=== PATIENT | male | born 1945 | race Caucasian/White ===

== ENCOUNTER 2022-08-21 09:58 | Inpatient (IN) | payer MEDICARE ==
[~2022-08-21] VITALS: Ht 182.9 cm; Wt 105.4 kg
[2022-08-21 11:05] VITALS: BP 119/65
--- NOTE | 2022-08-21 11:05 | PM&R Post Admission Assessment ---
PM&R HP Date of Visit: Aug 21, 2022 Time of Visit: 11:30 History of Present Illness CC: Debility following viral pneumonia HPI: Gulshan Mackenzie is a 77-year-old male with history of a-fib s/p pacemaker placement, pulmonary fibrosis, COPD with recent exacerbation, CVA, hypertension, and hyperlipidemia who was admitted to acute rehab at [facility] on 08/21 following hospitalization 07/31- 08/21/[address] [facility] for weakness and debilitation following COPD exacerbation secondary to viral pneumonia. While at [facility] he was treated with IV ceftriaxone and cefepime which also covered for a UTI which grew pseudomonas. He endorses a non- productive cough, and shortness of breath as well as his position sensory deficits on his left side. Denies chest pain, abdominal pain, vision/hearing changes. Bowels are moving, and upon standing he has leakage of urine. Plan to go back home with son and Daughter in law upon discharge. Review of Systems: (see HPI) PMH: - Atrial fibrillation (Follows with Dr. Yan Childers. 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 - COPD (Follows with Dr. Kaur [facility] in [place]) - Pulmonary Fibrosis good. diagnosed last year. Supposedly from Smoking - Hypertension - T2DM - Sleep apnea - urinary incontinence Surgical Hx: - Pacemaker placement for a-fib - Cataract surgery Allergies: NKDA Home Medications: Metoprolol Tartrate 5 Mg/5 Ml Vial 5 Mg IV Q12H PRN Diltiazem HCl 30 Mg Tablet 30 Mg PO Q6H PRN Iprat-Albut 0.5-3(2.5) mg/3 ml (Ipratropium/Albuterol Sulfate) 0.5 Mg-3 Mg (2.5 Mg Base)/3 Ml Ampul.neb 3 Ml IH QID PRN Tylenol (Acetaminophen) 325 Mg Capsule 650 Mg PO Q6H PRN Incruse Ellipta (Umeclidinium Escalon) 62.5 Mcg/Actuation Blst.w.dev 1 Puff IH DAILY Sildenafil (Sildenafil Citrate) 20 Mg Tablet 20 Mg PO DAILY Prednisone 10 Mg Tab 10 Mg PO DAILY Potassium Chloride 10 Meq Tab.er.prt 10 Meq PO DAILY Pantoprazole Sodium 40 Mg Tablet.dr 40 Mg PO DAILY Multivitamins with Minerals (Multivitamin with Minerals) 1 Each Tablet 1 Each PO DAILY Magnesium Oxide 400 Mg Magnesium Tablet 400 Mg PO DAILY Furosemide 20 Mg Tablet 20 Mg PO DAILY Ezetimibe 10 Mg Tablet 10 Mg PO HS Enoxaparin Sodium 40 Mg/0.4 Ml Syringe 40 Mg SQ DAILY Docusate Sodium 100 Mg Capsule 100 Mg PO BID Clopidogrel (Clopidogrel Bisulfate) 75 Mg Tablet 75 Mg PO DAILY Aspirin 81 Mg Tab.chew 81 Mg PO DAILY Social Hx: Marital Status: Tobacco Use: Not current. Smoking Status: >30 years ago Use of E-Cig and/or Vaping: No Substance Use: No MJ Alcohol Use: Not corrent. No beer since stroke. Family Hx: No family history of stroke or heart disease. Bright's disease (Glomerulonephritis in father) Objective: Vital Signs 08/21/22 08/21/22 11:05 12:24 Temp 36.4 Pulse 72 Resp 22 B/P (MAP) 119/65 (83) Pulse Ox 97 O2 Delivery Nasal Cannula O2 Flow Rate 5.00 Physical Exam: General Appearance: No Apparent Distress HEENT: PERRL/EOMI, Moist Mucous Membranes Neck: Full Range of Motion, Non Tender, Supple Respiratory: Chest Non Tender, Reduced breath sounds on right, No Accessory Muscle Use, No Respiratory Distress. Pauses mid-sentence to catch breath. Cardiovascular: Regular Rate, Rhythm, No Murmur, Normal Peripheral Pulses Gastrointestinal: Normal Bowel Sounds, No Pulsatile Mass, Non Tender, Soft, Obese Extremity: Normal Capillary Refill, Normal Range of Motion, Non Tender, No Calf Tenderness, No Pedal Edema Neurologic/Psychiatric: Alert, Oriented x3, Normal Mood/Affect, Mild motor weakness in left arm and leg. Loss of position sense in leg Skin: Normal Color, Warm/Dry Assessment/Plan: Debility due to illness - Inpatient rehab - PT/OT eval and treat Atrial fibrillation (Follows with Dr. Carpenter) - AV block s/p pacemaker placement; rate and rhythm controlled. 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) - Still has position deficits in leg, motor and strength almost back to normal - On clopidegril and baby aspirin - Continue statin - on Lovenox - COPD (Follows with [facility]) - Recent exacerbation - on 2L baseline, currently requiring more - continue incruse ellipta (LAMA) - DuoNebs PRN Pulmonary Fibrosis (diagnosed 3 months ago) - on sildenafil 20 - As above for COPD treatment PRN Urinary incontinence - Hodgson - Not currently taking reductase inhibitors/alpha blockers - Bladder scan for post void residual Hypertension - Hold home medication if normotensive T2DM - Monitor blood sugar - ISS as needed, adjust with exercise Hx of sleep apnea - Does not tolerate CPAP, uses 2L O2 NC at night - Baseline 2L JARAD ROSA I Aug 21, 2022 12:38 <Created by JARAD ROSA > Past Kcuxxkc-Spdzxz-Emvide Hx Past Med/Social Hx: Reviewed Nursing Past Med/Soc Hx, Reviewed and Corrections made Patient Social History Marrital Status: single Employed/Student: retired Alcohol Use: Denies Use Smoking Status: Former Smoker Past Medical History Surgeries: Eye Surgery, Pacemaker Respiratory: COPD, Pneumonia, Sleep Apnea Currently Using CPAP: No Currently Using BIPAP: No Cardiac: Atrial Fibrillation, Chronic Edema/Swelling, High Cholesterol, Hypertension Neurological: Neuropathy, Stroke Genitourinary: Benign Prostatic Hyperpl, Neurogenic Bladder Gastrointestinal: Gastroesophageal Reflux Musculoskeletal: Arthritis, Chronic Back Pain PM&R Allergy/Meds/Data Review Allergies Coded Allergies: No Known Allergies (Verified Allergy, Unknown, 08/21/22) Home Medications Scheduled Aspirin (Aspirin), 81 MG PO DAILY, (Reported) Clopidogrel Bisulfate (Clopidogrel), 75 MG PO DAILY, (Reported) Docusate Sodium (Docusate Sodium), 100 MG PO BID, (Reported) Enoxaparin Sodium (Enoxaparin Sodium), 40 MG SQ DAILY, (Reported) Ezetimibe (Ezetimibe), 10 MG PO HS, (Reported) Furosemide (Furosemide), 20 MG PO DAILY, (Reported) Magnesium Oxide (Magnesium Oxide), 400 MG PO DAILY, (Reported) Metoprolol Tartrate (Metoprolol Tartrate), 50 MG PO TID, (Reported) Multivitamin with Minerals (Multivitamins with Minerals), 1 EACH PO DAILY, (Reported) Pantoprazole Sodium (Pantoprazole Sodium), 40 MG PO DAILY, (Reported) Potassium Chloride (Potassium Chloride), 10 MEQ PO DAILY, (Reported) Prednisone (Prednisone), 10 MG PO DAILY, (Reported) Sildenafil Citrate (Sildenafil), 20 MG PO DAILY, (Reported) Umeclidinium Escalon (Incruse Ellipta), 1 PUFF IH DAILY, (Reported) Scheduled PRN Acetaminophen (Tylenol), 650 MG PO Q6H PRN for PAIN-MILD (1-4) OR TEMPATURE, (Reported) Diltiazem HCl (Diltiazem HCl), 30 MG PO Q6H PRN for ELEVATED HEARTRATE, (Reported) Ipratropium/Albuterol Sulfate (Iprat-Albut 0.5-3(2.5) mg/3 ml), 3 ML IH QID PRN for SHORTNESS OF BREATH, (Reported) Metoprolol Tartrate (Metoprolol Tartrate), 5 MG IV Q12H PRN for HR GREATER THAN 110, (Reported) Current Medications Current Medications Reviewed Review of Systems Constitutional: see HPI, malaise, weakness EENTM: no symptoms reported Respiratory: dyspnea on exertion, short of breath Cardiovascular: no symptoms reported Gastrointestinal: no symptoms reported Genitourinary: incontinence Musculoskeletal: back pain, joint pain Skin: no symptoms reported Psychiatric/Neurological: Anxiety, Depressed All Other Systems Reviewed Negative Unless Noted: Yes Physical Exam Physical Exam Vital Signs Capillary Refill : Height, Weight, BMI Height: '" Weight: lbs. oz. kg; BMI Method: General Appearance: No Apparent Distress, WD/WN, Chronically ill, Obese Eyes: Bilateral Eye Normal Inspection, Bilateral Eye PERRL HEENT: PERRL/EOMI, Normal ENT Inspection, Pharynx Normal Neck: Full Range of Motion, Normal Inspection, Non Tender, Supple, Carotid Bruit Respiratory: Chest Non Tender, Lungs Clear, Normal Breath Sounds, No Accessory Muscle Use, No Respiratory Distress Cardiovascular: Regular Rate, Rhythm, No Edema, No Gallop, No JVD, Normal Peripheral Pulses, Systolic Murmur Gastrointestinal: Normal Bowel Sounds, No Organomegaly, No Pulsatile Mass, Non Tender, Soft Back: Normal Inspection, No CVA Tenderness, No Vertebral Tenderness Extremity: Normal Capillary Refill, Normal Inspection, Normal Range of Motion, Non Tender, No Calf Tenderness, No Pedal Edema Neurologic/Psychiatric: Alert, Oriented x3, numerologist II-XII Norm as Tested, Abnormal Gait, Depressed Affect, Motor Weakness (generalized weakness) Skin: Normal Color, Warm/Dry Lymphatic: No Adenopathy PM&R Medical Assessment & Plan REHAB/MEDICAL ASSESSMENT AND PLAN: REHAB IMPAIRMENT GROUP: Myopathy ETIOLOGIC DIAGNOSIS: Myopathy The comorbidities that impact the patients function and/or functional outcome by: CHF, Hypoxia requiring 24/7 O2 supplement, incontinence REHAB PLAN: The patient is being admitted to our comprehensive inpatient rehabilitation facility and can tolerate the intensity of service consisting of at least: 180 minutes of therapy a day, 5 out of 7 days a week Rehab treatment will consist of: PT OT will focus on regaining function in order to return back to independent living in order for familty to be able to help care for the patient The patient/family has a good understanding of our discharge process and will benefit from an interdisciplinary inpatient rehabilitation program. The patient has potential to make improvement and is in need of at least two of the following multidisciplinary therapies including but not limited to physical, occupational, speech, and prosthetics and orthotics. Additionally the patient will need services from respiratory, nutritional services, wound care, psychology, etc. (Customize this to each patient). Given the patients complex condition and risk of further medical complications, rehabilitation services cannot be safely or effectively provided at a lower level of care such as a snf facility. BARRIERS TO DISCHARGE: Severe debility ESTIMATED LOS: 10 days DISPOSITION: Home RELEVANT CHANGES SINCE PREADMISSION SCREENING: I have compared the patients medical and functional status at the time of the preadmission screening and there are: no changes PROGNOSIS: Good REHABILITATION GOALS: 1. PT OT will focus on regaining function in order to return back to independent living in order for familty to be able to help care for the patient All the above goals were reviewed with the patient and he/she is in agreement. By signing this document, I acknowledge that I have personally performed a full physical examination on this patient within 24 hours of admission to this inpatient rehabilitation facility and have determined the patient to be able to tolerate the above course of treatment at an intensive level for a reasonable period of time. I will be completing a detailed individualized Plan of Care for this patient by day #4 of the patients stay based upon the Preadmission Screen, the Post-Admission Evaluation, and the therapy evaluations. Admission Dx/Comorbidities: (1) COPD exacerbation ICD Codes: J44.1 - Chronic obstructive pulmonary disease with (acute) exacerbation Assessment/Plan Assessment and Plan Assess & Plan/Chief Complaint Assessment/Plan: Debility due to illness - Inpatient rehab - PT/OT eval and treat Atrial fibrillation (Follows with Dr. Carpenter) - AV block s/p pacemaker placement; rate and rhythm controlled. 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) - Still has position deficits in leg, motor and strength almost back to normal - On clopidegril and baby aspirin - Continue statin - on Lovenox - COPD (Follows with [facility]) - Recent exacerbation - on 2L baseline, currently requiring more - continue incruse ellipta (LAMA) - DuoNebs PRN Pulmonary Fibrosis (diagnosed 3 months ago) - on sildenafil 20 - As above for COPD treatment PRN Urinary incontinence - Hodgson previous - Not currently taking reductase inhibitors/alpha blockers - Bladder scan for post void residual Hypertension - Hold home medication if normotensive T2DM - Monitor blood sugar - ISS as needed, adjust with exercise Hx of sleep apnea - Does not tolerate CPAP, uses 2L O2 NC at night - Baseline 2L Plan: Consult Cardiology Home meds O2 Monitor closely DAYANA GABIREL DO Aug 21, 2022 11:05
--- NOTE | 2022-08-21 11:11 | Occupational Therapy Eval ---
OT Evaluation-General/PLF Medical Diagnosis Admission Date Medical Diagnosis: debility, s/p PNA Onset Date: Jul 21, 2022 Therapy Diagnosis Therapy Diagnosis: decreased ADL status Referral Physician: Yocasta Referral Reason: Evaluation/Treatment Medical History Additional Medical History COPD, Afib, HTN, HLD, CARLA, DM, CVA (2017, L side affected), pacemaker Current History 07/21/22 hospital with progressively worsening SOB, diagnosed with Flu A. Pt transferred to [place] 07/31 for O2 weaning. 08/21/22, transfer to [facility]. Social History Home: Multilevel Current Living Status: Children (Son and D.I.L) Entry Into Home: Stairs Without Railing Steps Into Home: 2 able to stay on main level, has not been on 2nd floor in a couple years. ADL-Prior Level of Function SCALE: Activities may be completed with or without assistive devices. 7-Dcgilrblcu-yshbknm completes the activity by him/herself with no assistance from a helper. 5-Set-up or Clean-up Assistance-helper sets up or cleans up; patient completes activity. Coggon assists only prior to or following the activity. 4-Supervision or Touching Assistance-helper provides verbal cues and/or touching/steadying and/or contact guard assistance as patient completes activity. Assistance may be provided throughout the activity or intermittently. 3-Partial/Moderate Assistance-helper does LESS THAN HALF the effort. Coggon lifts, holds or supports trunk or limbs, but provides less than half the effort. 2-Substantial/Maximal Assistance-helper does MORE THAN HALF the effort. Coggon lifts or holds trunk or limbs and provides more than half the effort. 5-Eoccbqdkt-zelspf does ALL the effort. Patient does none of the effort to complete the activity. Or, the assistance of 2 or more helpers is required for the patient to complete the activity. If activity was not attempted, code reason: 7-Patient Refused. 9-Not Applicable-not attempted and the patient did not perform the activity before the current illness, exacerbation or injury. 10-Not Attempted due to Environmental Limitations-(lack of equipment, weather restraints, etc.). 88-Not Attempted due to Medical Conditions or Safety Concerns. ADL PLOF Comments Pt reports IND with ADLs and functional mobility at PLOF, using a cane recently. Pt has a 4WW he uses outside on uneven ground. Self Care: Independent Functional Cognition: Independent DME/Equipment: Bath Chair, Grab Bars, Shower OT Current Status Subjective Pt in bed, agreeable to OT Tx. Mental Status/Objective Patient Orientation: Person, Place, Time, Situation Current Glasses/Contacts: Yes (reading) Hearing Aids: No Dentures/Partials: No Hand Dominance: Right Upper Extremity ROM WFL, BUE shoulder flexion to approx 150 degrees Upper Extremity Coordination Slightly decreased LUE due to previous CVA Upper Extremity Sensation Pt reports "duller" sensation in LUE from previous CVA and has decreased proprio ceptive input on LUE. Upper Extremity Strength 4+/5 BUEs. ADL-Treatment Eating (QC): 6 Oral Hygiene (QC): 5 Shower/Bathe Self (QC): 4 (CGA in stand) Upper Body Dressing (QC): 5 Lower Body Dressing (QC): 4 (CGA in stand) On/Off Footwear (QC): 5 Toileting Hygiene (QC): 4 (CGA) Other Treatments OT evaluation complete. OT/PT cotreat due to skill of 2 clinicians required that a prevocational/rehabilitation counselor could not perform in order to coordinate UE/LEs, decrease fall risk and due to pt's limitations in strength, mobility, activity tolerance, and transfers. OT focused on UE placement, ADLs, cues for sequencing and safety. PT focused on LE placement, gross overall movement, transfers/mobility. Pt donned LE clothing and footwear, then performed functional mobility/transfers in ARU common area and therapy gym. SBA supine to/from sit, CGA sit to/from stand, CGA car transfers. Occasional cues required for positioning and safety. functional mobility 60' with FWW, CGA. Pt's O2 saturation drops severly with activity, dropping to low 70%'s and taking several minutes to recover. Min A w/c mobility 150' due to decreased L hand coordination. Post tx, pt left with PT in therapy gym, all needs met. Education OT Patient Education: Correct positioning, Energy conservation, Modified ADL techniques, Progress toward Goal/Update tx plan, Purpose of tx/functional activities, Rehab process Teaching Recipient: Patient Teaching Methods: Discussion Response to Teaching: Verbalize Understanding BIMS CAM BIMS Expression of Ideas and Wants: Without Difficulty Understanding Verbal Content: Understands Brief Interview/Mental Status: Yes IRF TAWANDA BIMS: IRF TAWANDA BIMS Response (Comments) Value Repitition of Three Words Three 3 Recalls Socks Yes, No Cue Required 2 Recalls Blue Yes, No Cue Required 2 Recalls Bed Yes, No Cue Required 2 Year Correct 3 Month Accurate Within 5 Days 2 Day Correct 1 Total [address] Mental [address] No CAM Mental Status Change/Baseline: 0 Inattention: 0 Disorganized thinkin Altered level of consciousness: 0 OT Short Term Goals Short Term Goals Time Frame: Sep 05, 2022 Shower/bathe self: 5 Lower body dressin OT Mcc Goals Mcc Goals Time Frame: Sep 19, 2022 Eating (QC): 6 Oral Hygiene (QC): 6 Toileting Hygiene (QC): 6 Shower/Bathe Self (QC): 6 Upper Body Dressing (QC): 6 Lower Body Dressing (QC): 6 On/Off Footwear (QC): 6 Additional Goals: 1-Demonstrate ADL Tasks, 2-Verbalize Understanding, 3-I mproveStrength/Cece 1=Demonstrate adherence to instructed precautions during ADL tasks. 2=Patient will verbalize/demonstrate understanding of assistive devices/modifications for ADL. 3=Patient will improve strength/tolerance for activity to enable patient to perform ADL's. OT Education/Plan Problem List/Assessment Assessment: Decreased Activ Tolerance, Decreased UE Strength, Impaired Funct Balance, Impaired I ADL's, Impaired Self-Care Skills Discharge Recommendations Plan/Recommendations: Continue POC Treatment Plan/Plan of Care Patient would benefit from OT for education, treatment and training to promote independence in ADL's, mobility, safety and/or upper extremity function for ADL's. Plan of Care: ADL Retraining, Functional Mobility, Group Exercise/Act as Ind, UE Funct Exercise/Act Treatment Duration: Sep 19, 2022 Frequency: Modified Program (IRF) (14/02) Estimated Hrs Per Day: 1.5 hours per day (1-1.5 hours per day) Agreement: Yes Time Start Time: 11:10 Stop Time: 11:30 DATE: Aug 21, 2022 Total Time Billed (hr/min): 20 Billed Treatment Time OT evaluation ([id number]), [place] [id number], LEONEL TEAGUE OT Aug 21, 2022 11:11
[2022-08-21] MEDS ORDERED: BISACODYL 10 MG SUPP (DULCOLAX) PR PRN (11:15)
[2022-08-21] MEDS ORDERED: diphenhydrAMINE 25 MG TAB (BENADRYL) PO PRN (11:15)
[2022-08-21] MEDS ORDERED: LOPERAMIDE 2 MG (IMODIUM) TABLET PO PRN (11:15)
[2022-08-21] MEDS ORDERED: ONDANSETRON 4 MG (ZOFRAN) ORAL DISSOLVE TAB PO PRN (11:15)
[2022-08-21] MEDS ORDERED: guaiFENesin/CODEINE (ROBITUSSIN AC) 10ML UDC PO PRN (11:15)
[2022-08-21] MEDS ORDERED: DOCUSATE SODIUM 100 MG (COLACE) CAP PO PRN (11:15)
[2022-08-21] MEDS ORDERED: FLEET ENEMA ADULT 1 EA BTL PR PRN (11:15)
[2022-08-21] MEDS ORDERED: LACTULOSE SYRUP 10GM/15ML (ENULOSE) 30ML UDC PO PRN (11:15)
[2022-08-21] MEDS ORDERED: ACETAMINOPHEN 325 MG TABLET PO PRN (11:15)
[2022-08-21] MEDS ORDERED: ALPRAZolam 0.25 MG (XANAX) TAB PO PRN (11:15)
[2022-08-21] MEDS ORDERED: CALCIUM CARBONATE 500 MG (TUMS) TAB.CHEW PO PRN (11:15)
--- NOTE | 2022-08-21 11:49 | Physical Therapy Evaluation ---
PT Evaluation-General Medical Diagnosis Admission Date Aug 21, 2022 at 10:58 Medical Diagnosis: debility, s/p pneumonia Onset Date: Aug 21, 2022 Therapy Diagnosis Therapy Diagnosis: impaired mobility, strength Referral Physician: Liyah Rust DO Reason for Referral: Evaluation/Treatment Social History Home: Multilevel (doesn't have to use upstairs) Current Living Status: Children (Son and D.I.L) Entry Into Home: Stairs Without Railing PT Steps Into Home: 2 Prior Prior Level of Function SCALE: Activities may be completed with or without assistive devices. 5-Gnvlkibtxj-uaiykvi completes the activity by him/herself with no assistance from a helper. 5-Set-up or Clean-up Assistance-helper sets up or cleans up; patient completes activity. [place] assists only prior to or following the activity. 4-Supervision or Touching Assistance-helper provides verbal cues and/or touching/steadying and/or contact guard assistance as patient completes activi ty. Assistance may be provided throughout the activity or intermittently. 3-Partial/Moderate Assistance-helper does LESS THAN HALF the effort. [place] lifts, holds or supports trunk or limbs, but provides less than half the effort. 2-Substantial/Maximal Assistance-helper does MORE THAN HALF the effort. [place] lifts or holds trunk or limbs and provides more than half the effort. 7-Thkhsfzcw-tlfedh does ALL the effort. Patient does none of the effort to complete the activity. Or, the assistance of 2 or more helpers is required for the patient to complete the activity. If activity was not attempted, code reason: 7-Patient Refused. 9-Not Applicable-not attempted and the patient did not perform the activity before the current illness, exacerbation or injury. 10-Not Attempted due to Environmental Limitations-(lack of equipment, weather restraints, etc.). 88-Not Attempted due to Medical Conditions or Safety Concerns. Bed Mobility: 6 Transfers (B,C,W/C): 6 Gait: 6 Stairs: 6 Indoor Mobility (Ambulation): Independent Stairs: Independent SPC use since 2017 when he had a CVA PT Evaluation-Current Subjective Patient in bed pre tx, agrees to PT, has unrated pain on his bottom, patient states he has a sore there, nurse has seen it. Will be co-treating with OT for part of tx due to poor patient mobility, strength, endurance, severe debility, drop in O2 with activity, coordinate UE and LE with activity, safety and reduce risk of falls. Pain Section J - Health Conditions 1. Rarely or not at all 2. Occasionally 3. Frequently 4. Almost constantly 8. Unable to answer Pain Effect on Sleep: 2 Pain Interference with Therapy: 2 Pain Interference w/Day-to-Day: 2 Pt/Family Goals to be independent at home Objective Patient Orientation: Person, Place, Situation Attachments: Oxygen ROM/Strength ROM Lower Extremities WNL Strength Lower Extremities LLE (hip flexion 3/5, knee flexion 3+/5, knee extension 3+/5, dorsiflexion 3+/5), RLE (hip flexion 3+/5, knee flexion 4-/5, knee extension 4-/5, dorsiflexion 3+/5) Sensory Hearing: Functional Hand Dominance: Right Sensation Right Lower Extremit: Intact Sensation Left Lower Extremity: Impaired Transfers Roll Left & Right (QC): 4 Sit to Lying (QC): 4 Lying to Sitting/Side of Bed(Q: 4 Sit to Stand (QC): 4 Chair/Hyv-gy-Wprlt Xfer(QC): 4 Toilet Transfer (QC): 4 Car Transfer (QC): 4 Patient performs rolling and supine <-> sit with SBA, sit <-> stand and weiss sfers CGA, car transfer CGA. Patient needs occasional cues for positioning and safety. Gait Does the Patient Walk?: Yes Mode of Locomotion: Walk Anticipated Mode of Locomotion: Walk Walk 10 feet (QC): 4 Walk 50 ft with 2 Turns(QC): 4 Walk 150 ft (QC): 88 Walking 10ft/uneven surface-QC: 4 Distance: 60'x2 Gait Assistive Device: FWW Comments/Gait Description Patient can ambulate 60' with a rolling walker with CGA (including 50' with at least 2 turns of 90 degrees and 10' over an uneven surface), gait is slow but steady. Patient's O2 drops severely with activity, especially ambulation, it will drop to low 70's and take a few minutes to recover. Wheelchair Training Does the Pt Use a Wheelchair?: Yes Distance: 150' Wheel 50 ft with 2 turns (QC): 3 Wheel 150 ft (QC): 3 Type of Wheelchair: Manual Patient needs assist because his left hand doesn't tax analyst the wheel rim as well as the right and it is lacking some coordination. Stairs #of Steps: 1 1 Step (curb) (QC): 4 4 Steps (QC): 88 12 Steps (QC): 88 Walking Assistive Device: Walker Patient can go up and down 1 step using a rolling walker with CGA, cues for safety. Balance Sitting Static: Normal Sitting Dynamic: Normal Standing Static: Fair Standing Dynamic: Fair Picking up an Object (QC): 4 (CGA using a deckhand oyster dredge) Treatment PT performed bed mobility and transfers, ambulation, WC mobility, stair training, standing and positioning during dressing, OT performed dressing, UE positioning and safety during activity. Assessment/Needs Patient in recliner post tx with nurse call, phone, tray, all needs met. Patient has impaired mobility, strength, endurance. O2 drops significantly with activity and has a long recovery time. Rehab Potential: Fair PT Short Term Goals Short Term Goals Time Frame: Aug 28, 2022 Sit to stand: 4 Chair/joe-gt-lrzga transfer: 4 Walk 10 feet: 4 Walk 50 feet with two turns: 4 Walk 150 feet: 4 all SBA PT Group Care Worker Goals Nursing Home Goals PT Group Care Worker Goals Time Frame: Sep 04, 2022 Roll Left to Right (QC): 6 Sit to Lying (QC): 6 Lying-Sitting on Side/Bed(QC): 6 Sit to Stand (QC): 6 Chair/Ftt-je-Fhpln Xfer(QC): 6 Toilet/Commode Transfer (QC): 6 Car Transfer (QC): 6 Does the Patient Walk: Yes Walk 10 feet (QC): 6 Walk 10ft-Uneven Surface(QC): 6 Walk 50ft with 2 Turns (QC): 6 Walk 150 ft (QC): 6 Wheel 50 feet with 2 turns (QC: 9 Wheel 150 feet: 9 1 Step (curb) (QC): 4 (SBA) 4 Steps (QC): 4 (SBA) 12 Steps (QC): 88 Picking up an Object (QC): 6 PT Plan Problem List Problem List: Activity Tolerance, Functional Strength, Safety, Balance, Gait, Transfer, Bed Mobility, ROM Treatment/Plan Treatment Plan: Continue Plan of Care Treatment Plan: Bed Mobility, Education, Functional Activity Cece, Functional Strength, Group Therapy, Gait, Safety, Therapeutic Exercise, Transfers Treatment Duration: Sep 04, 2022 Frequency: At least 5 of 7 days/Wk (IRF) Estimated Hrs Per Day: 1.5 hours per day Patient and/or Family Agrees t: Yes Safety Risks/Education Patient Education: Gait Training, Transfer Techniques, Steps, Correct Positioning, W/C Management, Safety Issues Teaching Recipient: Patient Teaching Methods: Demonstration, Discussion Response to Teaching: Reinforcement Needed Discharge Recommendations Plan Patient will perform bed mobility and transfer training, balance and endurance training, functional strengthening, stair training, gait training, and education, to improve functional mobility and independence at home. Therapy Discharge Recommendati: Home & Family, Post Acute PT Time Time In: 1100 Time Out: 1200 DATE: Aug 21, 2022 Total Billed Treatment Time: 50 Total Billed Treatment 1 visit EVM 10' FA 40' (only charge 2 units) PT eval from [id number], OT eval from [id number], co-treat from [id number], PT from [id number] RAVI CHAVEZ PT Aug 21, 2022 11:49
[2022-08-21] MEDS ORDERED: ACET325C7 PO (12:16)
[2022-08-21] MEDS ORDERED: POTA-177 PO (12:16)
[2022-08-21] MEDS ORDERED: ENOX40DI8 SQ (12:16)
[2022-08-21] MEDS ORDERED: SILD20TA14 PO (12:16)
[2022-08-21] MEDS ORDERED: FURO20TA4 PO (12:16)
[2022-08-21] MEDS ORDERED: EZET10TA49 PO (12:16)
[2022-08-21] MEDS ORDERED: PANT40TA52 PO (12:16)
[2022-08-21] MEDS ORDERED: DOCU100C37 PO (12:16)
[2022-08-21] MEDS ORDERED: MAGN400T50 PO (12:16)
[2022-08-21] MEDS ORDERED: PRD10T PO (12:16)
[2022-08-21] MEDS ORDERED: DILT30TA PO (12:16)
[2022-08-21] MEDS ORDERED: MULT-166 PO (12:16)
[2022-08-21] MEDS ORDERED: IPRA3AMP31 IH (12:16)
[2022-08-21] MEDS ORDERED: CLOP75TA28 PO (12:16)
[2022-08-21] MEDS ORDERED: UMEC62.5 IH (12:16)
[2022-08-21] MEDS ORDERED: ASPI-999 PO (12:16)
[2022-08-21] MEDS ORDERED: METO5VIA26 IV (12:16)
--- NOTE | 2022-08-21 12:38 | Progress Note ---
JARAD ROSA I 08/21/22 1238: Progress Note CC: Debility following viral pneumonia HPI: Gulshan Mackenzie is a 77-year-old male with history of a-fib s/p pacemaker placement, pulmonary fibrosis, COPD with recent exacerbation, CVA, hypertension, and hyperlipidemia who was admitted to acute rehab at [facility] on 08/21 following hospitalization 07/31- 08/21/22 from [facility] for weakness and debilitation following COPD exacerbation secondary to viral pneumonia. While at [facility] he was treated with IV ceftriaxone and cefepime which also covered for a UTI which grew pseudomonas. He endorses a non- productive cough, and shortness of breath as well as his position sensory deficits on his left side. Denies chest pain, abdominal pain, vision/hearing changes. Bowels are moving, and upon standing he has leakage of urine. Plan to go back home with son and Daughter in law upon discharge. Review of Systems: (see HPI) PMH: - Atrial fibrillation (Follows with Dr. Yan Childers. 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 - COPD (Follows with [facility] [place]) - Pulmonary Fibrosis good. diagnosed last year. Supposedly from Smoking - Hypertension - T2DM - Sleep apnea - urinary incontinence Surgical Hx: - Pacemaker placement for a-fib - Cataract surgery Allergies: NKDA Home Medications: Metoprolol Tartrate 5 Mg/5 Ml Vial 5 Mg IV Q12H PRN Diltiazem HCl 30 Mg Tablet 30 Mg PO Q6H PRN Iprat-Albut 0.5-3(2.5) mg/3 ml (Ipratropium/Albuterol Sulfate) 0.5 Mg-3 Mg (2.5 Mg Base)/3 Ml Ampul.neb 3 Ml IH QID PRN Tylenol (Acetaminophen) 325 Mg Capsule 650 Mg PO Q6H PRN Incruse Ellipta (Umeclidinium Strawn) 62.5 Mcg/Actuation Blst.w.dev 1 Puff IH DAILY Sildenafil (Sildenafil Citrate) 20 Mg Tablet 20 Mg PO DAILY Prednisone 10 Mg Tab 10 Mg PO DAILY Potassium Chloride 10 Meq Tab.er.prt 10 Meq PO DAILY Pantoprazole Sodium 40 Mg Tablet.dr 40 Mg PO DAILY Multivitamins with Minerals (Multivitamin with Minerals) 1 Each Tablet 1 Each PO DAILY Magnesium Oxide 400 Mg Magnesium Tablet 400 Mg PO DAILY Furosemide 20 Mg Tablet 20 Mg PO DAILY Ezetimibe 10 Mg Tablet 10 Mg PO HS Enoxaparin Sodium 40 Mg/0.4 Ml Syringe 40 Mg SQ DAILY Docusate Sodium 100 Mg Capsule 100 Mg PO BID Clopidogrel (Clopidogrel Bisulfate) 75 Mg Tablet 75 Mg PO DAILY Aspirin 81 Mg Tab.chew 81 Mg PO DAILY Social Hx: Marital Status: Tobacco Use: Not current. Smoking Status: >30 years ago Use of E-Cig and/or Vaping: No Substance Use: No MJ Alcohol Use: Not corrent. No beer since stroke. Family Hx: No family history of stroke or heart disease. Bright's disease (Glomerulonephritis in father) Objective: Vital Signs 08/21/22 08/21/22 11:05 12:24 Temp 36.4 Pulse 72 Resp 22 B/P (MAP) 119/65 (83) Pulse Ox 97 O2 Delivery Nasal Cannula O2 Flow Rate 5.00 Physical Exam: General Appearance: No Apparent Distress HEENT: PERRL/EOMI, Moist Mucous Membranes Neck: Full Range of Motion, Non Tender, Supple Respiratory: Chest Non Tender, Reduced breath sounds on right, No Accessory Muscle Use, No Respiratory Distress. Pauses mid-sentence to catch breath. Cardiovascular: Regular Rate, Rhythm, No Murmur, Normal Peripheral Pulses Gastrointestinal: Normal Bowel Sounds, No Pulsatile Mass, Non Tender, Soft, Obese Extremity: Normal Capillary Refill, Normal Range of Motion, Non Tender, No Calf Tenderness, No Pedal Edema Neurologic/Psychiatric: Alert, Oriented x3, Normal Mood/Affect, Mild motor weakness in left arm and leg. Loss of position sense in leg Skin: Normal Color, Warm/Dry Assessment/Plan: Debility due to illness - Inpatient rehab - PT/OT eval and treat Atrial fibrillation (Follows with Dr. Carpenter) - AV block s/p pacemaker placement; rate and rhythm controlled. 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) - Still has position deficits in leg, motor and strength almost back to normal - On clopidegril and baby aspirin - Continue statin - on Lovenox - COPD (Follows [facility]) - Recent exacerbation - on 2L baseline, currently requiring more - continue incruse ellipta (LAMA) - DuoNebs PRN Pulmonary Fibrosis (diagnosed 3 months ago) - on sildenafil 20 - As above for COPD treatment PRN Urinary incontinence - [place] - Not currently taking reductase inhibitors/alpha blockers - Bladder scan for post void residual Hypertension - Hold home medication if normotensive T2DM - Monitor blood sugar - ISS as needed, adjust with exercise Hx of sleep apnea - Does not tolerate CPAP, uses 2L O2 NC at night - Baseline 2L LIYAH GABRIEL DO 08/21/222047: Supervisory-Addendum Brief Verification & Attestation Participated in pt care: history, MDM, physical Personally performed: exam, history, MDM, supervision of care Care discussed with: Medical Student Procedures: n/a Results interpretation: Verified all documentation Verification and Attestation of Medical Student E/M Service A medical student performed and documented this service in my presence. I reviewed and verified all information documented by the medical student and made modifications to such information, when appropriate. I personally performed the physical exam and medical decision making. Liyah Gabriel, Aug 21, 2022,20:48 JARAD ROSA I Aug 21, 2022 12:38 LIYAH GABRIEL DO Aug 21, 2022 20:48
[2022-08-21] MEDS ORDERED: METO50TA15 PO (13:24)
--- NOTE | 2022-08-21 14:34 | Occupational Ther Daily Note ---
OT Current Status-Daily Note [facility]ive [facility] agreeable to OT tx. ADL-Treatment Therapy Code Descriptions/Definitions Functional [place] Measure: 0=Not Assessed/NA 4=Minimal Assistance 1=Total Assistance 5=Supervision or Setup 2=Maximal Assistance 6=Modified [place] 3=Moderate Assistance 7=Complete IndependenceSCALE: Activities may be completed with or without assistive devices. 4-Vlhdsqygft-lawdyxh completes the activity by him/herself with no assistance from a helper. 5-Set-up or Clean-up Assistance-helper sets up or cleans up; patient completes activity. [place] assists only prior to or following the activity. 4-Supervision or Touching Assistance-helper provides verbal cues and/or touching/steadying and/or contact guard assistance as patient completes activity. Assistance may be provided throughout the activity or intermittently. 3-Partial/Moderate Assistance-helper does LESS THAN HALF the effort. [place] lifts, holds or supports trunk or limbs, but provides less than half the effort. 2-Substantial/Maximal Assistance-helper does MORE THAN HALF the effort. [place] lifts or holds trunk or limbs and provides more than half the effort. 0-Ckxpfpydm-fiunoi does ALL the effort. Patient does none of the effort to co mplete the activity. Or, the assistance of 2 or more helpers is required for the patient to complete the activity. If activity was not attempted, code reason: 7-Patient Refused. 9-Not Applicable-not attempted and the patient did not perform the activity before the current illness, exacerbation or injury. 10-Not Attempted due to Environmental Limitations-(lack of equipment, weather restraints, etc.). 88-Not Attempted due to Medical Conditions or Safety Concerns. Other Treatment Pt at [facility], finished with lunch. Pt reports IND with feeding. Pt completed sponge bath and dressing at [facility], CGA sponge bath, set up upper body dressing, CGA LE dressing, set up footwear. Pt took rest breaks as needed. Pt used FWW to transfer into bathroom and onto toilet, pt placed on 6L portable O2 tank, O2 saturation at 80%s, taking several minutes to return to 90%. Pt com pleted toileting, able to complete pant hike and posterior hygiene, CGA in stand. Pt returned to [facility], O2 saturation in low 80%s, taking several minutes to increase back to 90%. In order to increase BUE strength and activity tolerance, pt completed shoulder flexion resistive exercises using moderate resistance (red) theratubing. Loop made into theratube to assist pt with holding onto band in L hand due to prior CVA. Pt took rest breaks between the exercises. [id number] OT evaluation complete. OT/PT cotreat due to skill of 2 clinicians required that a vocational rehabilitation counselor could not perform in order to coordinate UE/LEs, decrease fall risk and due to pt's limitations in strength, mobility, activity tolerance, and transfers. OT focused on UE placement, ADLs, cues for sequencing and safety. PT focused on LE placement, gross overall movement, transfers/mobility. Pt completed exercises preparatory to standing while education was provided on O2 tubing management. Pt used FWW to perform functional mobility to MTU common area. Post tx, pt in chair with PT present, all needs met. OT Short Term Goals Short Term Goals Time Frame: Sep 05, 2022 Shower/bathe self: 5 Lower body dressin OT [facility] Goals Automation Consultant Goals Time Frame: Sep 19, 2022 Acute change in mental status: 0 Inattention: 0 Disorganized thinkin Altered level of consciousness: 0 Eating (QC): 6 Oral Hygiene (QC): 6 Toileting Hygiene (QC): 6 Shower/Bathe Self (QC): 6 Upper Body Dressing (QC): 6 Lower Body Dressing (QC): 6 On/Off Footwear (QC): 6 Additional Goals: 1-Demonstrate ADL Tasks, 2-Verbalize Understanding, 3- ImproveStrength/Cece 1=Demonstrate adherence to instructed precautions during ADL tasks. 2=Patient will verbalize/demonstrate understanding of assistive devices/modifications for ADL. 3=Patient will improve strength/tolerance for activity to enable patient to perform ADL's. OT Education/Plan Problem List/Assessment Assessment: Decreased Activ Tolerance, Decreased UE Strength, Impaired Funct Balance, Impaired I ADL's, Impaired Self-Care Skills Discharge Recommendations Plan/Recommendations: Continue POC Treatment Plan/Plan of Care Patient would benefit from OT for education, treatment and training to promote independence in ADL's, mobility, safety and/or upper extremity function for ADL's. Plan of Care: ADL Retraining, Functional Mobility, Group Exercise/Act as Ind, UE Funct Exercise/Act Treatment Duration: Sep 19, 2022 Frequency: Modified Program (IRF) (14/02) Estimated Hrs Per Day: 1.5 hours per day (1-1.5 hours per day) Agreement: Yes Rehab Potential: Fair Time Start Time: 13:20 Stop Time: 14:30 DATE: Aug 21, 2022 Total Time Billed (hr/min): 70 Billed Treatment Time OT tx [id number] (55'), Cotreat [id number] (15') 1, ADL 3 (45'), EX (15'), FA (10') LEONEL CARVALHO OT Aug 21, 2022 14:34
--- NOTE | 2022-08-21 14:57 | Physical Therapy Daily Note ---
PT Daily Note-Current Subjective Pt. agrees to Rx, shares his home situation and part of medical history. Pt. has min c/o SOB during Rx Pain Location: No Pain Reported Section J - Health Conditions 1. Rarely or not at all 2. Occasionally 3. Frequently 4. Almost constantly 8. Unable to answer Pain Effect on Sleep: 2 Pain Interference with Therapy: 2 Pain Interference w/Day-to-Day: 2 Mental Status Patient Orientation: Normal For Age Attachments: Oxygen (5L) Transfers SCALE: Activities may be completed with or without assistive devices. 6-Nrtnhqgvjn-caewbqb completes the activity by him/herself with no assistance from a helper. 5-Set-up or Clean-up Assistance-helper sets up or cleans up; patient completes activity. [place] assists only prior to or following the activity. 4-Supervision or Touching Assistance-helper provides verbal cues and/or touching/steadying and/or contact guard assistance as patient completes activity. Assistance may be provided throughout the activity or intermittently. 3-Partial/Moderate Assistance-helper does LESS THAN HALF the effort. [place] lifts, holds or supports trunk or limbs, but provides less than half the effort. 2-Substantial/Maximal Assistance-helper does MORE THAN HALF the effort. [place] lifts or holds trunk or limbs and provides more than half the effort. 4-Iflpcmbfa-oytcxs does ALL the effort. Patient does none of the effort to complete the activity. Or, the assistance of 2 or more helpers is required for the patient to complete the activity. If activity was not attempted, code reason: 7-Patient Refused. 9-Not Applicable-not attempted and the patient did not perform the activity before the current illness, exacerbation or injury. 10-Not Attempted due to Environmental Limitations-(lack of equipment, weather restraints, etc.). 88-Not Attempted due to Medical Conditions or Safety Concerns. Sit to Stand (QC): 4 Gait Training Does the Patient Walk?: Yes Walk 10 feet (QC): 4 Walk 50 ft with 2 Turns(QC): 4 Walk 150 ft (QC): 4 Gait Persons Needed: 1 Gait Assistive Device: FWW 75ftx5 FWW CGA no LOB, sats monitored throughout Rx , lowest reading at 89% for brief time. Pt. recovering well, audible dyspnea Exercises Seated Therapy Exercises: Ankle pumps, Sit to stand, Long arc quads, Hip flexion, Hip abd/add Seated Reps: 12 (x2) Treatments sit to stands, O2 monitoring, gait in short bouts , seated LE ex Assessment Current Status: Good Progress tolerating activity better already with o2 sats not below 90% except for approx 2 min, no LOB PT Short Term Goals Short Term Goals Time Frame: Aug 28, 2022 Sit to stand: 4 Chair/hcn-pw-hzhsj transfer: 4 Walk 10 feet: 4 Walk 50 feet with two turns: 4 Walk 150 feet: 4 PT Group Home Goals Carpenter Supervisor Goals PT Group Home Goals Time Frame: Sep 04, 2022 Roll Left & Right (QC): 6 Sit to Lying (QC): 6 Lying-Sitting on Side/Bed(QC): 6 Sit to Stand (QC): 6 Chair/Coj-ja-Igbgs Xfer(QC): 6 Toilet Transfer (QC): 6 Car Transfer (QC): 6 Does the Patient Walk: Yes Walk 10 feet (QC): 6 Walk 50ft with 2 Turns (QC): 6 Walk 150 ft (QC): 6 Walking 10ft on Uneven Surface: 6 1 Step (curb) (QC): 4 (SBA) 4 Steps (QC): 4 (SBA) 12 Steps (QC): 88 Picking up an Object (QC): 6 Wheel 50 feet with 2 turns (QC: 9 Wheel 150 feet: 9 PT Plan Treatment/Plan Treatment Plan: Continue Plan of Care Treatment Plan: Bed Mobility, Education, Functional Activity Cece, Functional Strength, Group Therapy, Gait, Safety, Therapeutic Exercise, Transfers Treatment Duration: Sep 04, 2022 Frequency: At least 5 of 7 days/Wk (IRF) Estimated Hrs Per Day: 1.5 hours per day Patient and/or Family Agrees t: Yes Safety Risks/Education Patient Education: Gait Training, Transfer Techniques, Correct Positioning, Safety Issues Teaching Recipient: Patient Teaching Methods: Demonstration, Discussion Response to Teaching: Verbalize Understanding, Return Demonstration, Reinforcement Needed Time Time In: 1415 Time Out: 1455 DATE: Aug 21, 2022 Total Billed Treatment Time: 40 Total Billed Treatment 1,FA10m,GT15m,EX15m CHRISTIAN SANCHEZ HAND BOX FOLDER Aug 21, 2022 14:57
[2022-08-21] MEDS ORDERED: meTOprolol 5 MG/5 ML (LOPRESSOR) VIAL IV PRN (15:45)
[2022-08-21] MEDS ORDERED: RT-ALBUTEROL/IPRATROPIUM 3 ML (DUONEB) VIAL IH PRN (15:45)
[2022-08-21 20:00] VITALS: BP 122/77
[2022-08-21] MEDS: eZETimibe 10 MG (ZETIA) TABLET PO SCH (21:09)
[2022-08-21] MEDS: DOCUSATE SODIUM 100 MG (COLACE) CAP PO SCH ×2 (21:10→21:15)
[2022-08-21] MEDS: meTOprolol TARTRATE 50 MG (LOPRESSOR) TAB PO SCH (21:10)
[2022-08-21] MEDS: polyethylene glycoL POWDER 17 GM (MIRALAX) PACK PO SCH (21:15)
[2022-08-21] MEDS: SENNA W/DOCUSATE (SENOKOT S) TABLET PO SCH (21:16)
--- NOTE | 2022-08-22 05:15 | PM&R Progress Note ---
Subjective HPI/CC On Admission Date Seen by Provider: Aug 22, 2022 Time Seen by Provider: 12:00 Subjective/Events-last exam 08/22/2022: Patient doing well Walking well with therapy Still very weak Maintained on oxygen Desaturation noted with activity Review of Systems General: Fatigue, Malaise Objective Exam Vital Signs Vital Signs Date Time Temp Pulse Resp B/P (MAP) Pulse Ox O2 Delivery O2 Flow Rate FiO2 08/23/22 00:55 85 08/22/22 21:00 Nasal Cannula 6.00 08/22/22 20:10 36.9 19 119/75 (90) 97 Capillary Refill : General Appearance: No Apparent Distress, WD/WN, Chronically ill, Obese HEENT: PERRL/EOMI, Normal ENT Inspection, Pharynx Normal Neck: Full Range of Motion, Normal Inspection, Non Tender, Supple, Carotid Bruit Respiratory: Chest Non Tender, Lungs Clear, Normal Breath Sounds, No Accessory Muscle Use, No Respiratory Distress Cardiovascular: Regular Rate, Rhythm, No Edema, No Gallop, No JVD, Normal Peripheral Pulses, Systolic Murmur Gastrointestinal: Normal Bowel Sounds, No Organomegaly, No Pulsatile Mass, Non Tender, Soft Back: Normal Inspection, No CVA Tenderness, No Vertebral Tenderness Extremity: Normal Capillary Refill, Normal Inspection, Normal Range of Motion, Non Tender, No Calf Tenderness, No Pedal Edema Neurologic/Psychiatric: Alert, Oriented x3, chlorination operator II-XII Norm as Tested, Abnormal Gait, Depressed Affect, Motor Weakness (generalized weakness) Skin: Normal Color, Warm/Dry Lymphatic: No Adenopathy Results/Procedures Lab Patient resulted labs reviewed. FIM Transfers Therapy Code Descriptions/Definitions Functional [place] Measure: 0=Not Assessed/NA 4=Minimal Assistance 1=Total Assistance 5=Supervision or Setup 2=Maximal Assistance 6=Modified [place] 3=Moderate Assistance 7=Complete IndependenceSCALE: Activities may be completed with or without assistive devices. 2-Amwgplfrwk-aevlbhm completes the activity by him/herself with no assistance from a helper. 5-Set-up or Clean-up Assistance-helper sets up or cleans up; patient completes activity. Adrian assists only prior to or following the activity. 4-Supervision or Touching Assistance-helper provides verbal cues and/or touching/steadying and/or contact guard assistance as patient completes activit y. Assistance may be provided throughout the activity or intermittently. 3-Partial/Moderate Assistance-helper does LESS THAN HALF the effort. Adrian lifts, holds or supports trunk or limbs, but provides less than half the effort. 2-Substantial/Maximal Assistance-helper does MORE THAN HALF the effort. Adrian lifts or holds trunk or limbs and provides more than half the effort. 6-Nbtxnfoft-djtpth does ALL the effort. Patient does none of the effort to complete the activity. Or, the assistance of 2 or more helpers is required for the patient to complete the activity. If activity was not attempted, code reason: 7-Patient Refused. 9-Not Applicable-not attempted and the patient did not perform the activity before the current illness, exacerbation or injury. 10-Not Attempted due to Environmental Limitations-(lack of equipment, weather restraints, etc.). 88-Not Attempted due to Medical Conditions or Safety Concerns. Roll Left to Right (QC): 4 Sit to Lying (QC): 4 Sit to Stand (QC): 4 Chair/Now-lm-Pjpms Xfer(QC): 4 Car Transfer (QC): 4 Gait Training Does the Patient Walk?: Yes Walk 10 feet (QC): 4 Walk 50 ft with 2 Turns(QC): 4 Walk 150 ft (QC): 4 Walking 10ft/uneven surface-QC: 4 Gait Persons Needed: 1 Gait Assistive Device: FWW Wheelchair Training Does the Pt Use a Wheelchair?: Yes Distance: 150' Wheel 50 ft with 2 turns (QC): 3 Wheel 150 ft (QC): 3 Type of Wheelchair: Manual Stair Training #of Steps: 1 1 Step (curb) (QC): 4 4 Steps (QC): 88 12 Steps (QC): 88 Balance Picking up an Object (QC): 4 (CGA using a stope miner) ADL-Treatment Eating (QC): 6 Oral Hygiene (QC): 5 Shower/Bathe Self (QC): 4 (CGA in stand) Upper Body Dressing (QC): 5 Lower Body Dressing (QC): 4 (CGA in stand) On/Off Footwear (QC): 5 Toileting Hygiene (QC): 4 (CGA) Assessment/Plan Assessment and Plan Assess & Plan/Chief Complaint Assessment/Plan: Debility due to illness - Inpatient rehab - PT/OT eval and treat Atrial fibrillation (Follows with Dr. Carpenter) - AV block s/p pacemaker placement; rate and rhythm controlled. 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) - Still has position deficits in leg, motor and strength almost back to normal - On clopidegril and baby aspirin - Continue statin - on Lovenox - COPD (Follows with [facility]) - Recent exacerbation - on 2L baseline, currently requiring more - continue incruse ellipta (LAMA) - DuoNebs PRN Pulmonary Fibrosis (diagnosed 3 months ago) - on sildenafil 20 - As above for COPD treatment PRN Urinary incontinence - Hodgson previous - Not currently taking reductase inhibitors/alpha blockers - Bladder scan for post void residual Hypertension - Hold home medication if normotensive T2DM - Monitor blood sugar - ISS as needed, adjust with exercise Hx of sleep apnea - Does not tolerate CPAP, uses 2L O2 NC at night - Baseline 2L Plan: Consult Cardiology Home meds O2 Monitor closely 08/22/2022: Patient doing well (1) COPD exacerbation DAYANA GABRIEL DO Aug 22, 2022 05:15
--- NOTE | 2022-08-22 05:16 | Individualized Plan of Care ---
Individualized Plan of Care Rehab Nursing IPOC Order Admission Date Aug 21, 2022 at 10:58 Current Orders Orders Admission Arrival Bed Request (08/21/22 10:58) Admission Order(Inpt,Obs,Sdc) (08/21/22 11:02) Vital Signs: Per Unit Policy ( 08,16,00 (08/21/22 11:02) Norm Wu 09,21 (08/21/22 11:02) Sequential Compression Device (08/21/22 11:02) Conveyor Worker-Inpt Rehab Con (08/21/22 11:02) Rehab Nursing Orders-Ipoc (08/21/22 11:02) Physical Therapy Rehab Orders (08/21/22 11:02) Occupational Therapy Rehab Ord (08/21/22 11:02) Speech Therapy Rehab Orders (08/21/22 11:02) Cbc With Automated Diff (08/22/22 06:00) Comprehensive Metabolic Panel (08/22/22 06:00) Precautions (Aru) (08/21/22 11:02) Rehab-Intensity Of Therapy (08/21/22 11:02) Initiate Admission Nursing Pro .admission (08/21/22 11:02) Alprazolam Tablet (Xanax Tablet) (08/21/22 11:15) Calcium Carbonate Chew Tablet (Antacid C (08/21/22 11:15) Diphenhydramine Tablet (Benadryl Tablet) (08/21/22 11:15) Docusate Sodium Capsule (Colace Capsule) (08/21/22 21:00) Docusate Sodium Capsule (Colace Capsule) (08/21/22 11:15) Bisacodyl Suppository (Dulcolax Supposit (08/21/22 11:15) Lactulose Oral Solution (Enulose Oral So (08/21/22 11:15) Na Phos/Na Biphos Enema (Fleet Enema Boogie (08/21/22 11:15) Guaifenesin/Codeine Syrup (Robitussin Ac (08/21/22 11:15) Loperamide Tablet (Imodium Tablet) (08/21/22 11:15) Melatonin Tablet (Melatonin Tablet) (08/21/22 11:15) Polyethylene Glycol Powder Pkt (Miralax (08/21/22 21:00) Ondansetron Oral Dissolve Tab (Zofran (08/21/22 11:15) Senna S Tablet (Senokot S Tablet) (08/21/22 21:00) Acetaminophen Tablet/Caplet (Tylenol T (08/21/22 11:15) Code/Resuscitation (08/21/22 11:02) Initiate Admission Nursing Pro .admission (08/21/22 11:02) Incentive Spirometry (Nursing) Q2H (08/21/22 12:28) Incentive Spirometry Initial (08/21/22 12:28) Incentive Spirometry (Nursing) Q2H (08/21/22 12:28) Patient Visit (08/21/22 ) Pt Eval Moderate Complexity (08/21/22 ) Functional Activities, Ea 15 (08/21/22 ) Patient Visit (08/21/22 ) Gait Training, Ea 15 Min (08/21/22 ) Functional Activities, Ea 15 (08/21/22 ) Exercise Therap, Ea 15 Min (08/21/22 ) Aspirin Chewable Tablet (Baby Aspirin Ch (08/22/22 09:00) Clopidogrel Tablet (Plavix Tablet) (08/22/22 09:00) Diltiazem Tablet (Cardizem Tablet) (08/21/22 15:45) Docusate Sodium Capsule (Colace Capsule) (08/21/22 21:00) Enoxaparin Injection (Lovenox Injection) (08/22/22 09:00) Ezetimibe Tablet (Zetia Tablet) (08/21/22 21:00) Furosemide Tablet (Lasix Tablet) (08/22/22 09:00) Albuterol/Ipra Inhalation Soln (Duoneb I (08/21/22 15:45) Metoprolol Tartrate Injection (Lopressor (08/21/22 15:45) Metoprolol Tartrate (Ir) Tab (Lopressor (08/21/22 21:00) Therapeutic Multivitamin Tab (Vitamins, (08/22/22 07:00) Pantoprazole Tablet (Protonix Tablet) (08/22/22 09:00) Prednisone Tablet (Deltasone Tablet) (08/22/22 08:00) Umeclidinium [place] Inhaler (Incruse El (08/22/22 08:00) (Nf) Magnesium Oxide (08/22/22 09:00) (Nf) Potassium Chloride (08/22/22 09:00) (Nf) Sildenafil Citrate (Sildenafil) (08/22/22 09:00) Magnesium Oxide Tablet (Mag Ox Tablet) (08/22/22 08:00) Potassium Chloride (Tablet) (Klor Con Ta (08/22/22 07:00) Sildenafil Tablet (Revatio Tablet) (08/22/22 09:00) Ensure Plus Vanilla (08/21/22 19:46) General/Regular (08/21/22 Dinner) Consult Wound Care Physician (08/21/22 19:47) Dressing Order (Intervention) BID PRN (08/22/22 08:27) Ekg Tracing (08/22/22 12:20) Obtain Records From (Order) (08/22/22 12:49) Telemetry (08/22/22 12:49) Telemetry Nursing Assessment ( (08/22/22 12:49) Patient Visit (08/22/22 ) Speech Sound Lang Comp (08/22/22 ) Treat. Speech/Lang/Voice (08/22/22 ) Patient Visit (08/22/22 ) Exercise Therap, Ea 15 Min (08/22/22 ) Functional Activities, Ea 15 (08/22/22 ) Patient May Use Own Med,Single (Patient (08/22/22 18:45) Rehab Nursing Orders: Ongoing Assess. of Cognitive Status, Ongoing Assess. of Function Status, Bladder Management, Bladder Scan, Bladder Training, Bowel Management, Bowel Training, Disease Management & Educaiton, DVT Prophylaxis, Fall Prevention, Fluid/Electrolyte/Nutrition Mgmt, Infection Prevention, Medication Management & Education, Management of Risks & Complications, Management of Skin Intergrity, Nutrition Management, Pain Management, Patient/Family Support, Safety Management Intensity of Therapy to be met Patient to be seen: Min.3h per day/5 of 7d PT IPOC Problem List: Activity Tolerance, Functional Strength, Safety, Balance, Gait, Transfer, Bed Mobility, ROM Treatment Plan: Continue Plan of Care Bed Mobility, Education, Functional Activity Cece, Functional Strength, Group Therapy, Gait, Safety, Therapeutic Exercise, Transfers Treatment Duration: Sep 04, 2022 Frequency: At least 5 of 7 days/Wk (IRF) Estimated Hrs Per Day: 1.5 hours per day OT IPOC Problems: Decreased Activ Tolerance, Decreased UE Strength, Impaired Funct Balance, Impaired I ADL's, Impaired Self-Care Skills OT Treatment, Training and Edu: Yes Plan of Care: ADL Retraining, Functional Mobility, Group Exercise/Act as Ind, UE Funct Exercise/Act Treatment Duration: Sep 19, 2022 Frequency: Modified Program (IRF) (14/02) Estimated Hrs Per Day: 1.5 hours per day (1-1.5 hours per day) ST IPOC Speech Therapy Treatment Plan: Discontinue ST Treatment Duration: Aug 22, 2022 Frequency: Modified Program (IRF) Estimated Hrs Per Day: Other Conveyor Worker/Case Mgmt Conveyor Worker/Case Managemen: Discharge Planning Dietitian/Lead Dental Assistant Dietitian/Lead Dental Assistant to monitor nutritional status and make changes and/or recommendations as needed and work with speech pathology on dietary upgrades as the occur. Physician IPOC Medical Issues being managed closely and that require the 24 hour availability of a physician: Recent respiratory failure with lengthy long-term care hospital course with cardiac dysfunction and 23/02 oxygen supplementation will require close monitoring for any decompensation Medical Issues: Bowel/Bladder Function, DVT Prophylaxis, Falls Precautions, Fluid/Electrolyte/Nutrition Balance, Infection Protection, Pain Management, Wound Care Brief Synthesis of Preadmission Screen, Post-Admission Evaluation, and Therapy Evaluations: PT and OT will focus on regaining function with use of assistive devices and increase stamina and ambulation increase ADLs in order to return back home with family Medical Prognosis: Fair Anticipated Length of Stay: 10 days DAYANA GABRIEL DO Aug 22, 2022 05:15
[2022-08-22 06:01] LABS: BASOPHILS % (AUTO) 0 % (0-10); EOSINOPHILS # (AUTO) 0.1 10^3/uL (0.0-0.3); EOSINOPHILS % (AUTO) 1 % (0-10); HEMATOCRIT 43 % (40-54); HEMOGLOBIN 14.4 g/dL (13.3-17.7); LYMPHOCYTES # (AUTO) 1.7 10^3/uL (1.0-4.0); LYMPHOCYTES % (AUTO) 33 % (12-44); MEAN CORPUSCULAR HEMOGLOBIN 32 pg (25-34); MEAN CORPUSCULAR HGB CONC 34 g/dL (32-36); MEAN CORPUSCULAR VOLUME 95 fL (80-99); MEAN PLATELET VOLUME 9.7 fL (9.0-12.2); MONOCYTES # (AUTO) 0.9 10^3/uL (0.0-1.0); MONOCYTES % (AUTO) 18 % (0-12); NEUTROPHILS # (AUTO) 2.3 10^3/uL (1.8-7.8); NEUTROPHILS % (AUTO) 46 % (42-75); PLATELET COUNT 157 10^3/uL (130-400); WHITE BLOOD COUNT 5.1 10^3/uL (4.3-11.0)
[2022-08-22 06:23] LABS: ALBUMIN 3.1 GM/DL (3.2-4.5); BILIRUBIN,TOTAL 0.9 MG/DL (0.1-1.0); CALCIUM 8.8 MG/DL (8.5-10.1); CREATININE SERUM 0.97 MG/DL (0.60-1.30); POTASSIUM 3.5 MMOL/L (3.6-5.0); TOTAL PROTEIN 6.1 GM/DL (6.4-8.2)
[2022-08-22] MEDS: MULTIVIT W/MINERALS TAB (THERAGRAN M) PO SCH (06:54)
[2022-08-22] MEDS ORDERED: KCL 10 MEQ TAB (MICRO K) PO SCH (07:00)
[2022-08-22 07:37] VITALS: BP 122/77
[2022-08-22] MEDS: UMECLIDINIUM BROMIDE (INCRUSE ELLIPTA) 7'S IH SCH (07:45)
[2022-08-22] MEDS ORDERED: MAGNESIUM OXIDE (MAG-OX)400 MG TAB PO SCH (08:00)
--- NOTE | 2022-08-22 08:35 | Wound Care Assessment ---
Wound Care Assessment Date Seen by Provider: Aug 22, 2022 Time Seen by Provider: 08:30 Chief Complaint MASD bilateral buttock HPI This pleasant 77 year old gentleman was admitted to rehab [facility] following a prolonged stay for pneumonia and debility. He denies a h/o DM2 despite past diagnosis. He plan to move in with his son and daughter in law upon discharge. He does have some stress incontinence which has likely contributed to his current ulceration. The ulceration is quite shallow and appears linear (likely related to moisture and shear injury from transfers). Cushioning while in chair is warranted, frequent positional changes and avoiding "scooting" with transfers. Thick layer of barrier ointment throughout the day would be warranted to continue the healing process and prevent new moisture related injuries. If he wears adult briefs, frequent changes when soiled would assist also. Atrial fibrillation s/p pacer, CVA, pulmonary fibrosis with COPD (baseline on 2L O2), generalized weakness and debility. Obesity Smoking Status: Former Smoker Alcohol Use: Denies Use Review of Systems General: Other (Obesity) HEENT: Other (Hearing adequate) Pulmonary: Dyspnea Genitourinary: Incontinence Musculoskeletal: other (generalized weakness) Neurological: Weakness, Other (Tremor) Exam Vital Signs Date Time Temp Pulse Resp B/P (MAP) Pulse Ox O2 Delivery O2 Flow Rate FiO2 08/22/22 07:45 92 Nasal Cannula 4.00 08/22/22 07:37 36.3 100 22 122/77 (92) Capillary Refill : General Appearance: obese HEENT: other (hearing adequate) Neck: full range of motion Respiratory: other (SOA with minimal movement and coversation. On continuous O2) Extremities: no pedal edema Neurologic/Psychiatric: alert, normal mood/affect Skin: normal color, warm/dry Skin Problem Location: other (buttock b/l) Wound assessment: Area of moisture injury bilateral buttock with non-blanching erythema, mild flaking and induration (c/w chronic moisture associated dermatitis). Several linear abrasions which are dry and shallow (c/w shear injury). The epithelialization is none. There is no tunneling or undermining. Drainage is none. Granulation is large and pink. Margins are flat Results Laboratory Tests 08/22/22 05:05: White Blood Count 5.1, Red Blood Count 4.53, Hemoglobin 14.4, Hematocrit 43, Mean Corpuscular Volume 95, Mean Corpuscular Hemoglobin 32, Mean Corpuscular Hemoglobin Concent 34, Red Cell Distribution Width 14.6H, Platelet Count 157, Mean Platelet Volume 9.7, Immature Granulocyte % (Auto) 2, Neutrophils (%) (Auto) 46, Lymphocytes (%) (Auto) 33, Monocytes (%) (Auto) 18H, Eosinophils (%) (Auto) 1, Basophils (%) (Auto) 0, Neutrophils # (Auto) 2.3, Lymphocytes # (Auto) 1.7, Monocytes # (Auto) 0.9, Eosinophils # (Auto) 0.1, Basophils # (Auto) 0.0, Immature Granulocyte # (Auto) 0.1, Sodium Level 137, Potassium Level 3.5L, Chloride Level 101, Carbon Dioxide Level 28, Anion Gap 8, Blood Urea Nitrogen 11, Creatinine 0.97, Estimat Glomerular Filtration Rate 81, BUN/Creatinine Ratio 11, Glucose Level 117H, Calcium Level 8.8, Corrected Calcium 9.5, Total Bilirubin 0.9, Aspartate Amino Transf (AST/SGOT) 25, Alanine Aminotransferase (ALT/SGPT) 55, Alkaline Phosphatase 59, Total Protein 6.1L, Albumin 3.1L Assessment/Plan/Dx Assessment: 1. 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 Generalized weakness, debility 3. COPD on continuous O2 Plan: 1. Frequent changing of briefs/cleaning when soiled. Thick layer barrier ointment to entire area bid and prn. Cushioning when in chair and frequent positional changes 2. Agree with PT 3. Per primary team BLANCA LOGAN MD Aug 22, 2022 08:35
[2022-08-22] MEDS: CLOPIDOGREL 75 MG (PLAVIX) TABLET PO SCH (08:44)
[2022-08-22] MEDS: ASPIRIN 81 MG CHEW (CHILDREN'S ASA) PO SCH (08:44)
[2022-08-22] MEDS: DOCUSATE SODIUM 100 MG (COLACE) CAP PO SCH ×4 (08:44→21:38)
[2022-08-22] MEDS: SENNA W/DOCUSATE (SENOKOT S) TABLET PO SCH ×2 (08:44→21:38)
[2022-08-22] MEDS: SILDENAFIL 20 MG (REVATIO) TAB PO SCH (08:44)
[2022-08-22] MEDS: PANTOPRAZOLE 40 MG (PROTONIX) TAB PO SCH (08:45)
[2022-08-22] MEDS: meTOprolol TARTRATE 50 MG (LOPRESSOR) TAB PO SCH ×3 (08:45→21:37)
[2022-08-22] MEDS: polyethylene glycoL POWDER 17 GM (MIRALAX) PACK PO SCH ×2 (08:46→21:38)
[2022-08-22] MEDS: predniSONE 10 MG TAB PO SCH (08:53)
[2022-08-22] MEDS ORDERED: FUROSEMIDE 20 MG (LASIX) TAB PO SCH (09:00)
[2022-08-22] MEDS ORDERED: NON-FORMULARY MEDICATION 1 EA EA (Potassium Chloride 10 MEQ) PO SCH (09:00)
[2022-08-22] MEDS ORDERED: NON-FORMULARY MEDICATION 1 EA EA (Sildenafil Citrate (Sildenafil) 20 MG) PO SCH (09:00)
[2022-08-22] MEDS ORDERED: NON-FORMULARY MEDICATION 1 EA EA (Magnesium Oxide 400 MG) PO SCH (09:00)
[2022-08-22] MEDS ORDERED: ENOXAPARIN 40 MG/0.4 ML (LOVENOX) SYR SQ SCH (09:00)
--- NOTE | 2022-08-22 09:00 | Occupational Ther Daily Note ---
OT Current Status-Daily Note Subjective Pt up in recliner, agreeable to OT Tx. Mental Status/Objective Patient Orientation: Normal For Age Attachments: Oxygen (2-6 L) ADL-Treatment Therapy Code Descriptions/Definitions Functional [place] Measure: 0=Not Assessed/NA 4=Minimal Assistance 1=Total Assistance 5=Supervision or Setup 2=Maximal Assistance 6=Modified [place] 3=Moderate Assistance 7=Complete IndependenceSCALE: Activities may be completed with or without assistive devices. 9-Tfzkzotkxo-guywzqb completes the activity by him/herself with no assistance from a helper. 5-Set-up or Clean-up Assistance-helper sets up or cleans up; patient completes activity. [employer] assists only prior to or following the activity. 4-Supervision or Touching Assistance-helper provides verbal cues and/or touching/steadying and/or contact guard assistance as patient completes activity. Assistance may be provided throughout the activity or intermittently. 3-Partial/Moderate Assistance-helper does LESS THAN HALF the effort. [employer] lifts, holds or supports trunk or limbs, but provides less than half the effort. 2-Substantial/Maximal Assistance-helper does MORE THAN HALF the effort. [employer] lifts or holds trunk or limbs and provides more than half the effort. 7-Rqeuxaoqw-lrhhkk does ALL the effort. Patient does none of the effort to complete the activity. Or, the assistance of 2 or more helpers is required for the patient to complete the activity. If activity was not attempted, code reason: 7-Patient Refused. 9-Not Applicable-not attempted and the patient did not perform the activity before the current illness, exacerbation or injury. 10-Not Attempted due to Environmental Limitations-(lack of equipment, weather restraints, etc.). 88-Not Attempted due to Medical Conditions or Safety Concerns. Shower/Bathe Self (QC): 4 (CGA sponge bath.) Upper Body Dressing (QC): 5 Lower Body Dressing (QC): 4 (CGA) Toileting Hygiene (QC): 4 (CGA) Toilet Transfer (QC): 4 (CGA) Other Treatment Pt in recliner, used FWW to transfer into bathroom and onto toilet. Pt's O2 set at 2L NC, O2 saturation at 75%. O2 turned up to 5L per RN, pt took several minutes to return to 90%'s. Pt wanting to take a shower, but due to decreased O2 saturation with minimal activity, sponge bath performed instead. Pt used FWW to return to recliner, completing sponge bath and dressing. Pt required frequent and significant rest breaks throughout tx due to SOB. O2 saturation dropping into upper 70's to low 80's with minimal activity on 5L. RN aware and instructed O2 to be turned to 6L, pt then recovered back into mid 90%'s. Post tx, pt in recliner, call light in reach and all needs met. Education OT Patient Education: Correct positioning, Energy conservation, Modified ADL techniques, Progress toward Goal/Update tx plan, Purpose of tx/functional activities, Rehab process Teaching Recipient: Patient Teaching Methods: Discussion Response to Teaching: Verbalize Understanding OT Short Term Goals Short Term Goals Time Frame: Sep 05, 2022 Shower/bathe self: 5 Lower body dressin OT Longterm Goals Longterm Goals Time Frame: Sep 19, 2022 Acute change in mental status: 0 Inattention: 0 Disorganized thinkin Altered level of consciousness: 0 Eating (QC): 6 Oral Hygiene (QC): 6 Toileting Hygiene (QC): 6 Shower/Bathe Self (QC): 6 Upper Body Dressing (QC): 6 Lower Body Dressing (QC): 6 On/Off Footwear (QC): 6 Additional Goals: 1-Demonstrate ADL Tasks, 2-Verbalize Understanding, 3- ImproveStrength/Cece 1=Demonstrate adherence to instructed precautions during ADL tasks. 2=Patient will verbalize/demonstrate understanding of assistive devic es/modifications for ADL. 3=Patient will improve strength/tolerance for activity to enable patient to perform ADL's. OT Education/Plan Problem List/Assessment Assessment: Decreased Activ Tolerance, Decreased UE Strength, Impaired Coordination, Impaired Funct Balance, Impaired I ADL's, Impaired Self-Care Skills Discharge Recommendations Plan/Recommendations: Continue POC Treatment Plan/Plan of Care Patient would benefit from OT for education, treatment and training to promote independence in ADL's, mobility, safety and/or upper extremity function for ADL's. Plan of Care: ADL Retraining, Functional Mobility, Group Exercise/Act as Ind, UE Funct Exercise/Act Treatment Duration: Sep 19, 2022 Frequency: Modified Program (IRF) (14/02) Estimated Hrs Per Day: 1.5 hours per day (1-1.5 hours per day) Agreement: Yes Rehab Potential: Fair Time Start Time: 07:45 Stop Time: 09:00 DATE: Aug 22, 2022 Total Time Billed (hr/min): 75 Billed Treatment Time 1, ADL 5 LEONEL CARVALHO OT Aug 22, 2022 09:00
--- NOTE | 2022-08-22 10:39 | Physical Therapy Daily Note ---
PT Daily Note-Current Subjective Patient in recliner pre tx, agrees to PT, has no complaints of pain. Pain Section J - Health Conditions 1. Rarely or not at all 2. Occasionally 3. Frequently 4. Almost constantly 8. Unable to answer Pain Effect on Sleep: 2 Pain Interference with Therapy: 2 Pain Interference w/Day-to-Day: 2 Appearance Patient in recliner post tx with nurse call, phone, tray, all needs met. Mental Status Patient Orientation: Person, Place, Situation Attachments: Oxygen Transfers SCALE: Activities may be completed with or without assistive devices. 4-Uftumasqfl-pvrholv completes the activity by him/herself with no assistance from a helper. 5-Set-up or Clean-up Assistance-helper sets up or cleans up; patient completes activity. [place] assists only prior to or following the activity. 4-Supervision or Touching Assistance-helper provides verbal cues and/or touching/steadying and/or contact guard assistance as patient completes activity. Assistance may be provided throughout the activity or intermittently. 3-Partial/Moderate Assistance-helper does LESS THAN HALF the effort. [place] lifts, holds or supports trunk or limbs, but provides less than half the effort. 2-Substantial/Maximal Assistance-helper does MORE THAN HALF the effort. [place] lifts or holds trunk or limbs and provides more than half the effort. 8-Ylzjfgdek-znoccu does ALL the effort. Patient does none of the effort to complete the activity. Or, the assistance of 2 or more helpers is required for the patient to complete the activity. If activity was not attempted, code reason: 7-Patient Refused. 9-Not Applicable-not attempted and the patient did not perform the activity b efore the current illness, exacerbation or injury. 10-Not Attempted due to Environmental Limitations-(lack of equipment, weather restraints, etc.). 88-Not Attempted due to Medical Conditions or Safety Concerns. Sit to Stand (QC): 4 Chair/Xwn-mk-Jypzc Xfer(QC): 4 CGA Gait Training Distance: 30'x6 Walk 10 feet (QC): 4 Gait Persons Needed: 1 Gait Assistive Device: FWW slow but steady ambulation Exercises Standing: Heel/toe raises, Marching, Mini squats Standing Reps: 15 NuStep Minutes: 15 NuStep Workload: 4 (patient required many rest breaks) Treatments transfers, ambulation, strengthening Assessment Current Status: Fair Progress Patient's O2 drops to upper 80's with activity, needs a lengthy rest break with deep breathing to recover, comes back up to 92% PT Short Term Goals Short Term Goals Time Frame: Aug 28, 2022 Sit to stand: 4 Chair/ano-tc-roorv transfer: 4 Walk 10 feet: 4 Walk 50 feet with two turns: 4 Walk 150 feet: 4 PT [facility] Goals Gauge Inspector Goals PT Gauge Inspector Goals Time Frame: Sep 04, 2022 Roll Left & Right (QC): 6 Sit to Lying (QC): 6 Lying-Sitting on Side/Bed(QC): 6 Sit to Stand (QC): 6 Chair/Lbc-qo-Mhwyr Xfer(QC): 6 Toilet Transfer (QC): 6 Car Transfer (QC): 6 Does the Patient Walk: Yes Walk 10 feet (QC): 6 Walk 50ft with 2 Turns (QC): 6 Walk 150 ft (QC): 6 Walking 10ft on Uneven Surface: 6 1 Step (curb) (QC): 4 (SBA) 4 Steps (QC): 4 (SBA) 12 Steps (QC): 88 Picking up an Object (QC): 6 Wheel 50 feet with 2 turns (QC: 9 Wheel 150 feet: 9 PT Plan Problem List Problem List: Activity Tolerance, Functional Strength, Safety, Balance, Gait, Transfer, Bed Mobility, ROM Treatment/Plan Treatment Plan: Continue Plan of Care Treatment Plan: Bed Mobility, Education, Functional Activity Cece, Functional Strength, Group Therapy, Gait, Safety, Therapeutic Exercise, Transfers Treatment Duration: Sep 04, 2022 Frequency: At least 5 of 7 days/Wk (IRF) Estimated Hrs Per Day: 1.5 hours per day Patient and/or Family Agrees t: Yes Safety Risks/Education Patient Education: Gait Training, Transfer Techniques, Correct Positioning, Safety Issues Teaching Recipient: Patient Teaching Methods: Demonstration, Discussion Response to Teaching: Reinforcement Needed Time Time In: 0930 Time Out: 1045 DATE: Aug 22, 2022 Total Billed Treatment Time: 75 Total Billed Treatment 1 visit EX 30' FA 45' RAVI CHAVEZ PT Aug 22, 2022 10:39
--- NOTE | 2022-08-22 11:25 | ST Cognitive Linguistic Eval ---
Speech Evaluation-General Medical Diagnosis Debility, s/p PNA Onset Date: Jul 21, 2022 Therapy Diagnosis Therapy Diagnosis: Intact (Baseline) Cognition Precautions Precautions: Fall Precautions/Isolations: Fall Prevention, Standard Precautions Referral Referring Physician: Dr. Rust Reason for Referral: Evaluation/Treatment Medical History Reviewed History: Yes Social History Current Living Status: Children (Son and D.I.L) Speech PLF-Current Status Prior Level of Function The patient denied current or prior concerns with his speech, language or cognition. Subjective The patient was seated upright in his recliner, awake and alert upon entrance to his room by the clinician. The patient greeted the clinician appropriately and was agreeable to participation in the cognitive linguistic assessment. Language Eval: Auditory Comprehends Simple Yes/No Ques: Functional Indent/Objects Multiple Gomez: Functional Follows 1-Step Commands: Functional Follows General Conversations: Functional Language Eval: Verbal Language Completes Spontaneous Greeting: Functional Produces Auto, Serial Info: Functional Word Finding: Functional Requests Basic Needs: Functional States Basic Personal Info: Functional Expresses Complex Ideas: Functional Cognitive Patient Orientation The patient was independently oriented to self, location, month, day of week, date, and year. Objective Cognitive Domain Attention: WNL Memory: WNL Problem Solving: Functional Executive Functions: WNL Visuospatial Skills: WNL Composite Severity Rating: WNL Clock Drawing Severity Rating: WNL Objective Formal/Standardized Tests [facility] Mental Status Exam (UMS) Results The patient demonstrated a result of +30/30 on the SLUMS correlating to cognitive linguistic skills within normal limits. Oral Motor/Speech Production The patient does not display dysarthria or apraxia of speech. The patient is 100% intelligible in known and unknown contexts. Impression The patient demonstrated intact (baseline) cognitive linguistic skills. Speech-Plan Treatment Plan Speech Therapy Treatment Plan: Discontinue ST Treatment Duration: Aug 22, 2022 Frequency: 1 time per week Estimated Hrs Per Day: .5 hour per day Rehab Potential: Fair Pt/Family Agrees to Plan: Yes Safety Risks/Education Teaching Recipient: Patient Teaching Methods: Discussion Response to Teaching: Verbalize Understanding Education Topics Provided: Results, Recommendations, Plan of Care Time Speech Therapy Time In: 10:55 Speech Therapy Time Out: 11:25 DATE: Aug 22, 2022 Total Billed Time: 30 Billed Treatment Time 1, [facility] Aug 22, 2022 11:25
--- NOTE | 2022-08-22 12:28 | Consultation-Cardiology ---
HPI-Cardiology Cardiology Consultation: Date of Consultation 08/22/22 Time Seen by a Provider: 12:20 Date of Admission 08-21-22 Attending Physician Admitting Physician Admitting Physician: Liyah Rust DO Attending Physician: Liyah Rust DO Consulting Physician Booker Barnes MD HPI: Chief Complaint: Tachycardia Mr. Mackenzie is a 77 yr old male admitted to [facility] from [facility] in [place], [place]. He reports his primary occupational therapy asst is Dr. Astudillo at [facility] in [place], [place]; states he saw in last in January 2022. Currently sitting up in recliner at the bedside. He reports SOB with any exertion or prolonged conversation. No c/o CP, palpitations, syncope, near syncope. No c/o LE swelling. Review of Systems-Cardiology Review of Systems Constitutional: No chills, No fever; malaise Eyes: No vision change Ears/Nose/Throat: No epistaxis, No recent hearing loss Respiratory: As described under HPI Cardiovascular: As described under HPI Gastrointestinal: No constipation, No diarrhea, No nausea, No vomiting Genitourinary: No dysuria Musculoskeletal: no symptoms reported Skin: No rash on exposed areas, No ulcerations on exposed areas Psychiatric/Neurological: No anxiety, No depression, No seizure, No focal weakness, No syncope Hematologic: No bleeding abnormalities All Other Systems Reviewed Negative Unless Noted: Yes AOA-Cpzkmi-Ntkhka Hx Patient Social History Marrital Status: single Employed/Student: retired Smoking Status: Former Smoker Have you traveled recently?: No Alcohol Use?: No Pt feels they are or have been: No Immunizations Up To Date Date of Influenza Vaccine: Apr 21, 2022 Past Medical History PMH As described under Assessment. Family Medical History Family Medical History: Denies any family h/o CAD. Allergies and Home Medications Allergies Coded Allergies: No Known Allergies (Verified Allergy, Unknown, 08/21/22) Patient Home Medication List Acetaminophen (Tylenol) 325 Mg Capsule, 650 MG PO Q6H PRN for PAIN-MILD (1-4) OR TEMPATURE, (Reported) Entered as Reported by: ANASTASIA FIGUEROA on 08/21/22 1216 Last Action: Held Aspirin (Aspirin) 81 Mg Tab.chew, 81 MG PO DAILY, (Reported) Entered as Reported by: ANASTASIA FIGUEROA on 08/21/221215 Last Action: Continued Clopidogrel Bisulfate (Clopidogrel) 75 Mg Tablet, 75 MG PO DAILY, (Reported) Entered as Reported by: ANASTASIA FIGUEROA on 08/21/221215 Last Action: Continued Diltiazem HCl (Diltiazem HCl) 30 Mg Tablet, 30 MG PO Q6H PRN for ELEVATED HEARTRATE, (Reported) Entered as Reported by: ANASTASIA FIGUEROA on 08/21/221215 Last Action: Continued Docusate Sodium (Docusate Sodium) 100 Mg Capsule, 100 MG PO BID, (Reported) Entered as Reported by: ANASTASIA FIGUEROA on 08/21/221215 Last Action: Continued Enoxaparin Sodium (Enoxaparin Sodium) 40 Mg/0.4 Ml Syringe, 40 MG SQ DAILY, (Reported) Entered as Reported by: ANASTASIA FIGUEROA on 08/21/221215 Last Action: Continued Ezetimibe (Ezetimibe) 10 Mg Tablet, 10 MG PO HS, (Reported) Entered as Reported by: ANASTASIA FIGUEROA on 08/21/221215 Last Action: Continued Furosemide (Furosemide) 20 Mg Tablet, 20 MG PO DAILY, (Reported) Entered as Reported by: ANASTASIA FIGUEROA on 08/21/221215 Last Action: Continued Ipratropium/Albuterol Sulfate (Iprat-Albut 0.5-3(2.5) mg/3 ml) 0.5 Mg-3 Mg (2.5 Mg Base)/3 Ml Ampul.neb, 3 ML IH QID PRN for SHORTNESS OF BREATH, (Reported) Entered as Reported by: ANASTASIA FIGUEROA on 08/21/221215 Last Action: Continued Magnesium Oxide (Magnesium Oxide) 400 Mg Magnesium Tablet, 400 MG PO DAILY, (Reported) Entered as Reported by: ANASTASIA FIGUEROA on 08/21/221215 Last Action: Converted Metoprolol Tartrate (Metoprolol Tartrate) 5 Mg/5 Ml Vial, 5 MG IV Q12H PRN for HR GREATER THAN 110, (Reported) Entered as Reported by: ANASTASIA FIGUEROA on 08/21/221215 Last Action: Continued Metoprolol Tartrate (Metoprolol Tartrate) 50 Mg Tablet, 50 MG PO TID, (Reported) Entered as Reported by: ANASTASIA FIGUEROA on 08/21/22 1324 Last Action: Continued Multivitamin with Minerals (Multivitamins with Minerals) 1 Each Tablet, 1 EACH PO DAILY, (Reported) Entered as Reported by: ANASTASIA FIGUEROA on 08/21/221215 Last Action: Continued Pantoprazole Sodium (Pantoprazole Sodium) 40 Mg Tablet.dr, 40 MG PO DAILY, (Reported) Entered as Reported by: ANASTASIA FIGUEROA on 08/21/221215 Last Action: Continued Potassium Chloride (Potassium Chloride) 10 Meq Tab.er.prt, 10 MEQ PO DAILY, (Reported) Entered as Reported by: ANASTASIA FIGUEROA on 08/21/221215 Last Action: Converted Prednisone (Prednisone) 10 Mg Tab, 10 MG PO DAILY, (Reported) Entered as Reported by: ANASTASIA FIGUEROA on 08/21/221215 Last Action: Continued Sildenafil Citrate (Sildenafil) 20 Mg Tablet, 20 MG PO DAILY, (Reported) Entered as Reported by: ANASTASIA FIGUEROA on 08/21/221215 Last Action: Converted Umeclidinium Rogers (Incruse Ellipta) 62.5 Mcg/Actuation Blst.w.dev, 1 PUFF IH DAILY, (Reported) Entered as Reported by: ANASTASIA FIGUEROA on 08/21/221215 Last Action: Continued Physical Exam-Cardiology Physical Exam Vital Signs/I&O 08/25/22 08/26/22 08/26/22 21:30 01:02 07:37 Pulse 74 Pulse Ox 97 O2 Delivery Nasal Cannula Nasal Cannula O2 Flow Rate 5.00 5.00 08/26/22 00:00 Intake Total 1080 ml Output Total 200 ml Balance 880 ml Capillary Refill : Constitutional: AAO x 3, well-developed, well-nourished HEENT: PERRL, hearing is well preserved, oral hygience is good Neck: No carotid bruit; carotid pulses are 2 + bilaterally Respiratory: No accessory muscle use, No respiratory distress; chest expansion is symmetric, chest is bilaterally symmetric, other (diminished throughout) Cardiovascular: regular rate-rhythm; No JVD; S1 and S2 Gastrointestinal: No tender; soft, audible bowel sounds Extremities: no lower extremity edema bilateral Neurologic/Psychiatric: grossly intact (moves all extremities) Skin: No rash on exposed areas, No ulcerations on exposed areas Data Review Labs Microbiology 08/24/22 Urine Culture - Preliminary, Resulted Probable Pseudomonas A/P-Cardiology Assessment/Admission Diagnosis Recent hospitalization at [facility] in [place], [place] d/t resp failure d/t pneumonia and Influenza A on 07-21-22 - transferred to [facility] in [place], [place] on 07-31-22 ? P. Atrial fibrillation - records from [facility] state a-fib - pt denies H/O PPM - placed in 2018 at [facility] - followed by Dr. Astudillo HTN HLD Pulmonary HTN - on sildenafil and chronic oxygen at home (prior to admission) - followed by Dr. Kaur of pulmonary services in [place], [place] CARLA DM 2 H/O previous CVA - 2016 - treated at [facility] - per pt source undetermined - no residual COPD H/O tobaccoism - quit 30 yrs ago Discussion and Recomendations Tachycardia - EKG today ? H/O PAF documented in pt records from [facility] although pt denies - not on OAC - request records from Dr. Astudillo - if he does have h/o a-fib or a-fib is seen during hospitalization then will start OAC - continue ASA for now H/O CVA in the past - pt does not know details - he is on Plavix and ASA - denies carotid dz - will request records Monitor lab Request records Place on tele for now Further recs will be based on his hospital course We would like to thank Dr. Rust for this consult EMETERIO HUYNH Aug 22, 2022 12:28
[2022-08-22 14:00] VITALS: BP 128/81
--- NOTE | 2022-08-22 17:24 | Consultation-Cardiology ---
HPI-Cardiology Cardiology Consultation: Date of Consultation 08/22/22 Time Seen by a Provider: 17:15 Date of Admission Attending Physician Admitting Physician Admitting Physician: Liyah Rust DO Attending Physician: Liyah Rust DO Consulting Physician EDUARDO LANE MD, MA, FACP, FACC, FSCAI, CCDS HPI: Chief Complaint: Tachycardia Mr. Mackenzie is a 77 yr old male admitted to [facility] from [facility] in [place], [place]. He reports his primary motion picture operator is Dr. Astudillo at [facility] in [place], [place]; states he saw in last in January 2022. Currently sitting up in recliner at the bedside. He reports SOB with any exertion or prolonged conversation. No c/o CP, palpitations, syncope, near syncope. No c/o LE swelling. Review of Systems-Cardiology Review of Systems Constitutional: No chills, No fever; malaise Eyes: No vision change Ears/Nose/Throat: No epistaxis, No recent hearing loss Respiratory: As described under HPI Cardiovascular: As described under HPI Gastrointestinal: No constipation, No diarrhea, No nausea, No vomiting Genitourinary: No dysuria Musculoskeletal: no symptoms reported Skin: No rash on exposed areas, No ulcerations on exposed areas Psychiatric/Neurological: No anxiety, No depression, No seizure, No focal weakness, No syncope Hematologic: No bleeding abnormalities All Other Systems Reviewed Negative Unless Noted: Yes NAY-Snnwin-Tydkef Hx Patient Social History Marrital Status: single Employed/Student: retired Smoking Status: Former Smoker Have you traveled recently?: No Alcohol Use?: No Pt feels they are or have been: No Immunizations Up To Date Date of Influenza Vaccine: Apr 21, 2022 Past Medical History PMH As described under Assessment. Family Medical History Family Medical History: Denies any family h/o CAD. Allergies and Home Medications Allergies Coded Allergies: No Known Allergies (Verified Allergy, Unknown, 08/21/22) Patient Home Medication List Home Medication List Reviewed: Yes Acetaminophen (Tylenol) 325 Mg Capsule, 650 MG PO Q6H PRN for PAIN-MILD (1-4) OR TEMPATURE, (Reported) Entered as Reported by: ANASTASIA FIGUEROA on 08/21/22 1216 Last Action: Held Aspirin (Aspirin) 81 Mg Tab.chew, 81 MG PO DAILY, (Reported) Entered as Reported by: ANASTASIA FIGUEROA on 08/21/221215 Last Action: Continued Clopidogrel Bisulfate (Clopidogrel) 75 Mg Tablet, 75 MG PO DAILY, (Reported) Entered as Reported by: ANASTASIA FIGUEROA on 08/21/221215 Last Action: Continued Diltiazem HCl (Diltiazem HCl) 30 Mg Tablet, 30 MG PO Q6H PRN for ELEVATED HEARTRATE, (Reported) Entered as Reported by: ANASTASIA FIGUEROA on 08/21/221215 Last Action: Continued Docusate Sodium (Docusate Sodium) 100 Mg Capsule, 100 MG PO BID, (Reported) Entered as Reported by: ANASTASIA FIGUEROA on 08/21/221215 Last Action: Continued Enoxaparin Sodium (Enoxaparin Sodium) 40 Mg/0.4 Ml Syringe, 40 MG SQ DAILY, (Reported) Entered as Reported by: ANASTASIA FIGUEROA on 08/21/221215 Last Action: Continued Ezetimibe (Ezetimibe) 10 Mg Tablet, 10 MG PO HS, (Reported) Entered as Reported by: ANASTASIA FIGUEROA on 08/21/221215 Last Action: Continued Furosemide (Furosemide) 20 Mg Tablet, 20 MG PO DAILY, (Reported) Entered as Reported by: ANASTASIA FIGUEROA on 08/21/221215 Last Action: Continued Ipratropium/Albuterol Sulfate (Iprat-Albut 0.5-3(2.5) mg/3 ml) 0.5 Mg-3 Mg (2.5 Mg Base)/3 Ml Ampul.neb, 3 ML IH QID PRN for SHORTNESS OF BREATH, (Reported) Entered as Reported by: ANASTASIA FIGUEROA on 08/21/221215 Last Action: Continued Magnesium Oxide (Magnesium Oxide) 400 Mg Magnesium Tablet, 400 MG PO DAILY, (Reported) Entered as Reported by: ANASTASIA FIGUEROA on 08/21/221215 Last Action: Converted Metoprolol Tartrate (Metoprolol Tartrate) 5 Mg/5 Ml Vial, 5 MG IV Q12H PRN for HR GREATER THAN 110, (Reported) Entered as Reported by: ANASTASIA FIGUEROA on 08/21/221215 Last Action: Continued Metoprolol Tartrate (Metoprolol Tartrate) 50 Mg Tablet, 50 MG PO TID, (Reported) Entered as Reported by: ANASTASIA FIGUEROA on 08/21/22 1324 Last Action: Continued Multivitamin with Minerals (Multivitamins with Minerals) 1 Each Tablet, 1 EACH PO DAILY, (Reported) Entered as Reported by: ANASTASIA FIGUEROA on 08/21/221215 Last Action: Continued Pantoprazole Sodium (Pantoprazole Sodium) 40 Mg Tablet.dr, 40 MG PO DAILY, (Reported) Entered as Reported by: ANASTASIA FIGUEROA on 08/21/221215 Last Action: Continued Potassium Chloride (Potassium Chloride) 10 Meq Tab.er.prt, 10 MEQ PO DAILY, (Reported) Entered as Reported by: ANASTASIA FIGUEROA on 08/21/221215 Last Action: Converted Prednisone (Prednisone) 10 Mg Tab, 10 MG PO DAILY, (Reported) Entered as Reported by: ANASTASIA FIGUEROA on 08/21/221215 Last Action: Continued Sildenafil Citrate (Sildenafil) 20 Mg Tablet, 20 MG PO DAILY, (Reported) Entered as Reported by: ANASTASIA FIGUEROA on 08/21/221215 Last Action: Converted Umeclidinium [place] (Incruse Ellipta) 62.5 Mcg/Actuation Blst.w.dev, 1 PUFF IH DAILY, (Reported) Entered as Reported by: ANASTASIA FIGUEROA on 08/21/221215 Last Action: Continued Physical Exam-Cardiology Physical Exam Vital Signs/I&O 08/22/22 08/22/22 08/22/22 08/22/22 07:31 07:37 07:45 11:29 Temp 36.3 36.3 Pulse 100 100 Resp 22 22 B/P (MAP) 122/77 (92) Pulse Ox 92 92 92 O2 Delivery Nasal Cannula Nasal Cannula Nasal Cannula Nasal Cannula O2 Flow Rate 5.00 5.00 4.00 6.00 5.00 08/22/22 00:00 Intake Total 1200 ml Balance 1200 ml Capillary Refill : Constitutional: AAO x 3, well-developed, well-nourished HEENT: PERRL, hearing is well preserved, oral hygience is good Neck: No carotid bruit; carotid pulses are 2 + bilaterally Respiratory: No accessory muscle use, No respiratory distress; chest expansion is symmetric, chest is bilaterally symmetric, other (diminished throughout) Cardiovascular: regular rate-rhythm; No JVD; S1 and S2 Gastrointestinal: No tender; soft, audible bowel sounds Extremities: no lower extremity edema bilateral Neurologic/Psychiatric: grossly intact (moves all extremities) Skin: No rash on exposed areas, No ulcerations on exposed areas Data Review Labs Laboratory Tests 08/22/22 05:05: White Blood Count 5.1, Red Blood Count 4.53, Hemoglobin 14.4, Hematocrit 43, Mean Corpuscular Volume 95, Mean Corpuscular Hemoglobin 32, Mean Corpuscular Hemoglobin Concent 34, Red Cell Distribution Width 14.6H, Platelet Count 157, Mean Platelet Volume 9.7, Immature Granulocyte % (Auto) 2, Neutrophils (%) (Auto) 46, Lymphocytes (%) (Auto) 33, Monocytes (%) (Auto) 18H, Eosinophils (%) (Auto) 1, Basophils (%) (Auto) 0, Neutrophils # (Auto) 2.3, Lymphocytes # (Auto) 1.7, Monocytes # (Auto) 0.9, Eosinophils # (Auto) 0.1, Basophils # (Auto) 0.0, Immature Granulocyte # (Auto) 0.1, Sodium Level 137, Potassium Level 3.5L, Chloride Level 101, Carbon Dioxide Level 28, Anion Gap 8, Blood Urea Nitrogen 11, Creatinine 0.97, Estimat Glomerular Filtration Rate 81, BUN/Creatinine Ratio 11, Glucose Level 117H, Calcium Level 8.8, Corrected Calcium 9.5, Total Bilirubin 0.9, Aspartate Amino Transf (AST/SGOT) 25, Alanine Aminotransferase (ALT/SGPT) 55, Alkaline Phosphatase 59, Total Protein 6.1L, Albumin 3.1L A/P-Cardiology Assessment/Admission Diagnosis Recent hospitalization at [facility] in [place], [place] d/t resp failure d/t pneumonia and Influenza A on 07-21-22 - transferred to [facility] in [place], [place] on 07-31-22 ? P. Atrial fibrillation - records from [facility] state a-fib - pt denies - ECG 08/22/22 shows sinus tach and RBBB H/O PPM - placed in [address] [facility] - followed by Dr. Astudillo HTN HLD Pulmonary HTN - on sildenafil and chronic oxygen at home (prior to admission) - followed by Dr. Kaur of pulmonary services in [place], [place] CARLA DM 2 H/O previous CVA - 2016 - treated at [facility] - per pt source undetermined - no residual COPD H/O tobaccoism - quit 30 yrs ago Discussion and Recomendations ? H/O PAF documented in pt records from [facility] although pt denies - not on OAC - request records from Dr. Astudillo - if he does have h/o a-fib or a-fib is seen during hospitalization then will start OAC - continue ASA for now H/O CVA in the past - pt does not know details - he is on Plavix and ASA - denies carotid dz - will request records Monitor lab Request records Place on tele for now Further recs will be based on his hospital course We would like to thank Dr. Rust for this consult EDUARDO LANE MD FACP FACC CCDS Aug 22, 2022 17:24
[2022-08-22] MEDS ORDERED: PATIENT MAY USE OWN MED,SINGLE MED PO SCH (18:45)
[2022-08-22 20:10] VITALS: BP 119/75
[2022-08-22] MEDS: eZETimibe 10 MG (ZETIA) TABLET PO SCH (21:44)
[2022-08-23] MEDS: MULTIVIT W/MINERALS TAB (THERAGRAN M) PO SCH (06:47)
--- NOTE | 2022-08-23 06:59 | PM&R Progress Note ---
Subjective HPI/CC On Admission Date Seen by Provider: Aug 23, 2022 Time Seen by Provider: 12:00 Subjective/Events-last exam 08/23/2022: Improved status Onset AF on Tely so Eliquis started by Cardiology Monitoring closely 08/22/2022: Patient doing well Walking well with therapy Still very weak Maintained on oxygen Desaturation noted with activity Review of Systems General: Fatigue, Malaise Objective Exam Vital Signs Vital Signs Date Time Temp Pulse Resp B/P (MAP) Pulse Ox O2 Delivery O2 Flow Rate FiO2 08/23/22 14:11 93 20 123/65 (84) 95 Nasal Cannula 5.50 08/22/22 20:10 36.9 Capillary Refill : General Appearance: No Apparent Distress, WD/WN, Chronically ill, Obese HEENT: PERRL/EOMI, Normal ENT Inspection, Pharynx Normal Neck: Full Range of Motion, Normal Inspection, Non Tender, Supple, Carotid Bruit Respiratory: Chest Non Tender, Lungs Clear, Normal Breath Sounds, No Accessory Muscle Use, No Respiratory Distress Cardiovascular: Regular Rate, Rhythm, No Edema, No Gallop, No JVD, Normal Peripheral Pulses, Systolic Murmur Gastrointestinal: Normal Bowel Sounds, No Organomegaly, No Pulsatile Mass, Non Tender, Soft Back: Normal Inspection, No CVA Tenderness, No Vertebral Tenderness Extremity: Normal Capillary Refill, Normal Inspection, Normal Range of Motion, Non Tender, No Calf Tenderness, No Pedal Edema Neurologic/Psychiatric: Alert, Oriented x3, manager enrollment II-XII Norm as Tested, Abnormal Gait, Depressed Affect, Motor Weakness (generalized weakness) Skin: Normal Color, Warm/Dry Lymphatic: No Adenopathy Results/Procedures Lab Patient resulted labs reviewed. FIM Transfers Therapy Code Descriptions/Definitions Functional [place] Measure: 0=Not Assessed/NA 4=Minimal Assistance 1=Total Assistance 5=Supervision or Setup 2=Maximal Assistance 6=Modified [place] 3=Moderate Assistance 7=Complete IndependenceSCALE: Activities may be completed with or without assistive devices. 7-Qphumqtwow-fvshoaf completes the activity by him/herself with no assistance from a helper. 5-Set-up or Clean-up Assistance-helper sets up or cleans up; patient completes activity. Center assists only prior to or following the activity. 4-Supervision or Touching Assistance-helper provides verbal cues and/or touch ing/steadying and/or contact guard assistance as patient completes activity. Assistance may be provided throughout the activity or intermittently. 3-Partial/Moderate Assistance-helper does LESS THAN HALF the effort. Center lifts, holds or supports trunk or limbs, but provides less than half the effort. 2-Substantial/Maximal Assistance-helper does MORE THAN HALF the effort. Center lifts or holds trunk or limbs and provides more than half the effort. 0-Msoiawtsw-efojmx does ALL the effort. Patient does none of the effort to complete the activity. Or, the assistance of 2 or more helpers is required for the patient to complete the activity. If activity was not attempted, code reason: 7-Patient Refused. 9-Not Applicable-not attempted and the patient did not perform the activity before the current illness, exacerbation or injury. 10-Not Attempted due to Environmental Limitations-(lack of equipment, weather restraints, etc.). 88-Not Attempted due to Medical Conditions or Safety Concerns. Roll Left to Right (QC): 4 Sit to Lying (QC): 4 Sit to Stand (QC): 4 Chair/[place]e Xfer(QC): 4 Car Transfer (QC): 4 Gait Training Does the Patient Walk?: Yes Distance: 30'x6 Walk 10 feet (QC): 4 Walk 50 ft with 2 Turns(QC): 4 Walk 150 ft (QC): 4 Walking 10ft/uneven surface-QC: 4 Gait Persons Needed: 1 Gait Assistive Device: FWW Wheelchair Training Does the Pt Use a Wheelchair?: Yes Distance: 150' Wheel 50 ft with 2 turns (QC): 3 Wheel 150 ft (QC): 3 Type of Wheelchair: Manual Stair Training #of Steps: 1 1 Step (curb) (QC): 4 4 Steps (QC): 88 12 Steps (QC): 88 Balance Picking up an Object (QC): 4 (CGA using a police clerk) ADL-Treatment Eating (QC): 6 Oral Hygiene (QC): 5 Shower/Bathe Self (QC): 4 (CGA sponge bath.) Upper Body Dressing (QC): 5 Lower Body Dressing (QC): 4 (CGA) On/Off Footwear (QC): 5 Toileting Hygiene (QC): 4 (CGA) Toilet Transfer (QC): 4 (CGA) Assessment/Plan Assessment and Plan Assess & Plan/Chief Complaint Assessment/Plan: Debility due to illness - Inpatient rehab - PT/OT eval and treat Atrial fibrillation (Follows with Dr. Carpenter) - AV block s/p pacemaker placement; rate and rhythm controlled. 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) - Still has position deficits in leg, motor and strength almost back to normal - On clopidegril and baby aspirin - Continue statin - on Lovenox - COPD (Follows with [facility]) - Recent exacerbation - on 2L baseline, currently requiring more - continue incruse ellipta (LAMA) - DuoNebs PRN Pulmonary Fibrosis (diagnosed 3 months ago) - on sildenafil 20 - As above for COPD treatment PRN Urinary incontinence - Hodgson previous - Not currently taking reductase inhibitors/alpha blockers - Bladder scan for post void residual Hypertension - Hold home medication if normotensive T2DM - Monitor blood sugar - ISS as needed, adjust with exercise Hx of sleep apnea - Does not tolerate CPAP, uses 2L O2 NC at night - Baseline 2L Plan: Consult Cardiology Home meds O2 Monitor closely 08/22/2022: Patient doing well 08/23/2022: [place] (1) COPD exacerbation DAYANA GABRIEL DO Aug 23, 2022 06:59
[2022-08-23] MEDS: UMECLIDINIUM BROMIDE (INCRUSE ELLIPTA) 7'S IH SCH (07:07)
[2022-08-23 07:21] VITALS: BP 118/73
[2022-08-23] MEDS ORDERED: APIXABAN 5 MG (ELIQUIS) TABLET PO SCH (09:00)
[2022-08-23] MEDS: meTOprolol TARTRATE 50 MG (LOPRESSOR) TAB PO SCH ×3 (09:04→21:11)
[2022-08-23] MEDS: ASPIRIN 81 MG CHEW (CHILDREN'S ASA) PO SCH (09:04)
[2022-08-23] MEDS: PANTOPRAZOLE 40 MG (PROTONIX) TAB PO SCH (09:04)
[2022-08-23] MEDS: CLOPIDOGREL 75 MG (PLAVIX) TABLET PO SCH (09:05)
[2022-08-23] MEDS: APIXABAN 5 MG (ELIQUIS) TABLET PO SCH ×2 (09:05→21:11)
[2022-08-23] MEDS: predniSONE 10 MG TAB PO SCH (09:05)
[2022-08-23] MEDS: SILDENAFIL 20 MG (REVATIO) TAB PO SCH (09:05)
[2022-08-23] MEDS: DOCUSATE SODIUM 100 MG (COLACE) CAP PO SCH ×4 (09:15→21:11)
[2022-08-23] MEDS: polyethylene glycoL POWDER 17 GM (MIRALAX) PACK PO SCH ×2 (09:15→21:10)
[2022-08-23] MEDS: SENNA W/DOCUSATE (SENOKOT S) TABLET PO SCH ×2 (09:16→21:11)
--- NOTE | 2022-08-23 12:46 | Physical Therapy Daily Note ---
PT Daily Note-Current Subjective Pt found lying in bed /c nurse present upon entry. Agreed to PT. States that he has no pain. Nurse reports that pt went into a-fib this morning and O2 sats should be monitored. Pt reports dizziness when going from sitting to standing. Pain Section J - Health Conditions 1. Rarely or not at all 2. Occasionally 3. Frequently 4. Almost constantly 8. Unable to answer Pain Effect on Sleep: 2 Pain Interference with Therapy: 2 Pain Interference w/Day-to-Day: 2 Mental Status Patient Orientation: Normal For Age Attachments: Oxygen 5L O2 Transfers SCALE: Activities may be completed with or without assistive devices. 9-Lbxnwspjwg-apclamv completes the activity by him/herself with no assistance from a helper. 5-Set-up or Clean-up Assistance-helper sets up or cleans up; patient completes activity. [employer] assists only prior to or following the activity. 4-Supervision or Touching Assistance-helper provides verbal cues and/or touching/steadying and/or contact guard assistance as patient completes activity. Assistance may be provided throughout the activity or intermittently. 3-Partial/Moderate Assistance-helper does LESS THAN HALF the effort. [employer] lifts, holds or supports trunk or limbs, but provides less than half the effort. 2-Substantial/Maximal Assistance-helper does MORE THAN HALF the effort. [employer] lifts or holds trunk or limbs and provides more than half the effort. 5-Gtwokluyy-ypkucs does ALL the effort. Patient does none of the effort to complete the activity. Or, the assistance of 2 or more helpers is required for the patient to complete the activity. If activity was not attempted, code reason: 7-Patient Refused. 9-Not Applicable-not attempted and the patient did not perform the activity before the current illness, exacerbation or injury. 10-Not Attempted due to Environmental Limitations-(lack of equipment, weather restraints, etc.). 88-Not Attempted due to Medical Conditions or Safety Concerns. Lying to Sitting/Side of Bed(Q: 4 Sit to Stand (QC): 4 Pt SBA /c sit<->stand and ly->sit trfs. Gait Training Does the Patient Walk?: Yes Distance: 30, 30 Walk 10 feet (QC): 4 Gait Persons Needed: 1 Gait Assistive Device: FWW Pt SBA /c gait training. Amb. 60ft total /c FWW. Wheelchair Training Does the Pt Use a Wheelchair?: No Assessment Current Status: Fair Progress Pt displays SOB /c gait training. O2 sat at 98% pre-Tx. Pt amb. 30ft and required a seated RB. O2 sat was monitored at 68% after being seated and stephanie to 97% /c rest. Pt then trf back to room recliner and O2 was measured at 79% and stephanie to 96% /c rest. Pt displays slow gait pattern /c no LOB. Continue to progress pt as tolerated to increase endurance and functional ability. PT Short Term Goals Short Term Goals Time Frame: Aug 28, 2022 Sit to stand: 4 Chair/xxd-ii-zqijk transfer: 4 Walk 10 feet: 4 Walk 50 feet with two turns: 4 Walk 150 feet: 4 PT Mcfp Goals Marshmallow Runner Goals PT Mcfp Goals Time Frame: Sep 04, 2022 Roll Left & Right (QC): 6 Sit to Lying (QC): 6 Lying-Sitting on Side/Bed(QC): 6 Sit to Stand (QC): 6 Chair/Vea-dc-Pvnbb Xfer(QC): 6 Toilet Transfer (QC): 6 Car Transfer (QC): 6 Does the Patient Walk: Yes Walk 10 feet (QC): 6 Walk 50ft with 2 Turns (QC): 6 Walk 150 ft (QC): 6 Walking 10ft on Uneven Surface: 6 1 Step (curb) (QC): 4 (SBA) 4 Steps (QC): 4 (SBA) 12 Steps (QC): 88 Picking up an Object (QC): 6 Wheel 50 feet with 2 turns (QC: 9 Wheel 150 feet: 9 PT Plan Treatment/Plan Treatment Plan: Continue Plan of Care Treatment Plan: Bed Mobility, Education, Functional Activity Cece, Functional Strength, Group Therapy, Gait, Safety, Therapeutic Exercise, Transfers Treatment Duration: Sep 04, 2022 Frequency: At least 5 of 7 days/Wk (IRF) Estimated Hrs Per Day: 1.5 hours per day Patient and/or Family Agrees t: Yes Time Time In: 914 Time Out: 936 DATE: Aug 23, 2022 Total Billed Treatment Time: 22 Total Billed Treatment 1 visit GT 1x ABHIJEET RAMIREZ CHAIN OFFBEARER Aug 23, 2022 12:46
--- NOTE | 2022-08-23 12:58 | Progress Note - Cardiology ---
Cardiology SOAP Progress Note Subjective: No cp or palp or syncope No n/v/d No shortness of breath at rest Gen weakness and malaise Objective: I&O/Vital Signs 08/23/22 08/23/22 08/23/22 08/23/22 00:55 07:00 07:07 07:21 Pulse 85 107 96 Resp 20 B/P (MAP) 118/73 (88) Pulse Ox 97 O2 Delivery Nasal Cannula O2 Flow Rate 5.00 5.50 08/23/22 08/23/22 09:06 10:45 Pulse 111 89 Resp 20 Pulse Ox 97 95 O2 Delivery Nasal Cannula Nasal Cannula O2 Flow Rate 5.00 5.50 08/23/22 00:00 Intake Total 960 ml Balance 960 ml Constitutional: AAO x 3, well-developed, well-nourished Respiratory: No accessory muscle use, No respiratory distress; chest expansion is symmetric, chest is bilaterally symmetric, other (diminished throughout) Cardiovascular: regular rate-rhythm; No JVD; S1 and S2 Gastrointestional: No tender; soft; No guarding, No rebound; audible bowel sounds Extremities: no lower extremity edema bilateral Neurologic/Psychiatric: other (moves all limbs) Skin: No rash on exposed areas, No ulcerations on exposed areas Results/Procedures: Labs Laboratory Tests 08/22/22 05:05 A/P: Assessment: Recent hospitalization at [facility] in [place] d/t resp failure d/t pneumonia and Influenza A on 07-21-22 - transferred to [facility] in [place] on 07-31-22 SSS. PAF with controlled vent response seen on thele of 08/23/22 - s/p pacemaker in 2019, followed by Dr Carpenter at [facility] HTN HLD Pulmonary HTN - on sildenafil and chronic oxygen at home (prior to admission) - followed by Dr. Kaur of pulmonary services in [place], [place] CARLA DM 2 H/O previous CVA - Alexa2016 - treated at [place] - per pt source undetermined - no residual COPD H/O tobaccoism - quit 30 yrs ago Plan: * start OAC if approved by Dr Rust * stop Plavix after starting Eliquis (to recuce risk fo bleeding) * continue ASA * monitor labs, repeat electrolyte eval * I discussed his CV issues with him EDUARDO LANE MD FACP FACC CCDS Aug 23, 2022 12:58
[2022-08-23 14:11] VITALS: BP 123/65
[2022-08-23 20:00] VITALS: BP 125/62
[2022-08-23] MEDS: eZETimibe 10 MG (ZETIA) TABLET PO SCH (21:11)
[2022-08-24] MEDS: MULTIVIT W/MINERALS TAB (THERAGRAN M) PO SCH (06:20)
[2022-08-24 07:17] LABS: CALCIUM 8.8 MG/DL (8.5-10.1); CREATININE SERUM 0.76 MG/DL (0.60-1.30); MAGNESIUM 1.8 MG/DL (1.6-2.4); POTASSIUM 3.7 MMOL/L (3.6-5.0)
[2022-08-24 07:57] VITALS: BP 120/71
[2022-08-24] MEDS: predniSONE 10 MG TAB PO SCH (08:04)
[2022-08-24] MEDS: ASPIRIN 81 MG CHEW (CHILDREN'S ASA) PO SCH (08:04)
[2022-08-24] MEDS: meTOprolol TARTRATE 50 MG (LOPRESSOR) TAB PO SCH ×3 (08:04→20:44)
[2022-08-24] MEDS: SILDENAFIL 20 MG (REVATIO) TAB PO SCH (08:04)
[2022-08-24] MEDS: APIXABAN 5 MG (ELIQUIS) TABLET PO SCH (08:04)
[2022-08-24] MEDS: PANTOPRAZOLE 40 MG (PROTONIX) TAB PO SCH (08:04)
[2022-08-24] MEDS: polyethylene glycoL POWDER 17 GM (MIRALAX) PACK PO SCH ×2 (08:05→20:45)
[2022-08-24] MEDS: DOCUSATE SODIUM 100 MG (COLACE) CAP PO SCH ×4 (08:05→20:45)
[2022-08-24] MEDS: SENNA W/DOCUSATE (SENOKOT S) TABLET PO SCH ×2 (08:05→20:45)
--- NOTE | 2022-08-24 08:09 | PM&R Progress Note ---
Subjective HPI/CC On Admission Date Seen by Provider: Aug 24, 2022 Time Seen by Provider: 12:00 Subjective/Events-last exam 08/24/2022: Patient doing pretty well Moving around pretty well Hematuria noted so we will hold Eliquis Hematuria is likely why he was not on anticoagulation to begin with with a history of chronic A. fib 08/23/2022: Improved status Onset AF on Tely so Eliquis started by Cardiology Monitoring closely 08/22/2022: Patient doing well Walking well with therapy Still very weak Maintained on oxygen Desaturation noted with activity Review of Systems General: Fatigue, Malaise Pulmonary: Dyspnea Objective Exam Vital Signs Vital Signs Date Time Temp Pulse Resp B/P (MAP) Pulse Ox O2 Delivery O2 Flow Rate FiO2 08/24/22 08:11 Nasal Cannula 4.50 08/24/22 08:02 108 20 97 08/24/22 07:57 36.8 120/71 (87) Capillary Refill : General Appearance: No Apparent Distress, WD/WN, Chronically ill, Obese HEENT: PERRL/EOMI, Normal ENT Inspection, Pharynx Normal Neck: Full Range of Motion, Normal Inspection, Non Tender, Supple, Carotid Bruit Respiratory: Chest Non Tender, Lungs Clear, Normal Breath Sounds, No Accessory Muscle Use, No Respiratory Distress Cardiovascular: Regular Rate, Rhythm, No Edema, No Gallop, No JVD, Normal Peripheral Pulses, Systolic Murmur Gastrointestinal: Normal Bowel Sounds, No Organomegaly, No Pulsatile Mass, Non Tender, Soft Back: Normal Inspection, No CVA Tenderness, No Vertebral Tenderness Extremity: Normal Capillary Refill, Normal Inspection, Normal Range of Motion, Non Tender, No Calf Tenderness, No Pedal Edema Neurologic/Psychiatric: Alert, Oriented x3, system manager II-XII Norm as Tested, Abnormal Gait, Depressed Affect, Motor Weakness (generalized weakness) Skin: Normal Color, Warm/Dry Lymphatic: No Adenopathy Results/Procedures Lab Laboratory Tests 08/24/22 06:15 Patient resulted labs reviewed. FIM Transfers Therapy Code Descriptions/Definitions Functional [place] Measure: 0=Not Assessed/NA 4=Minimal Assistance 1=Total Assistance 5=Supervision or Setup 2=Maximal Assistance 6=Modified [place] 3=Moderate Assistance 7=Complete IndependenceSCALE: Activities may be completed with or without assistive devices. 9-Qlkehjihlc-aplwzri completes the activity by him/herself with no assistance from a helper. 5-Set-up or Clean-up Assistance-helper sets up or cleans up; patient completes activity. [place] assists only prior to or following the activity. 4-Supervision or Touching Assistance-helper provides verbal cues and/or touching/steadying and/or contact guard assistance as patient completes ac tivity. Assistance may be provided throughout the activity or intermittently. 3-Partial/Moderate Assistance-helper does LESS THAN HALF the effort. [place] lifts, holds or supports trunk or limbs, but provides less than half the effort. 2-Substantial/Maximal Assistance-helper does MORE THAN HALF the effort. [place] lifts or holds trunk or limbs and provides more than half the effort. 7-Bbtarwhkc-txvbfm does ALL the effort. Patient does none of the effort to complete the activity. Or, the assistance of 2 or more helpers is required for the patient to complete the activity. If activity was not attempted, code reason: 7-Patient Refused. 9-Not Applicable-not attempted and the patient did not perform the activity before the current illness, exacerbation or injury. 10-Not Attempted due to Environmental Limitations-(lack of equipment, weather restraints, etc.). 88-Not Attempted due to Medical Conditions or Safety Concerns. Roll Left to Right (QC): 4 Sit to Lying (QC): 4 Sit to Stand (QC): 4 Chair/Eac-my-Usygq Xfer(QC): 4 Car Transfer (QC): 4 Gait Training Does the Patient Walk?: Yes Distance: 30, 30 Walk 10 feet (QC): 4 Walk 50 ft with 2 Turns(QC): 4 Walk 150 ft (QC): 4 Walking 10ft/uneven surface-QC: 4 Gait Persons Needed: 1 Gait Assistive Device: FWW Wheelchair Training Does the Pt Use a Wheelchair?: No Distance: 150' Wheel 50 ft with 2 turns (QC): 3 Wheel 150 ft (QC): 3 Type of Wheelchair: Manual Stair Training #of Steps: 1 1 Step (curb) (QC): 4 4 Steps (QC): 88 12 Steps (QC): 88 Balance Picking up an Object (QC): 4 (CGA using a data center consultant) ADL-Treatment Eating (QC): 6 Oral Hygiene (QC): 5 Shower/Bathe Self (QC): 4 (CGA sponge bath.) Upper Body Dressing (QC): 5 Lower Body Dressing (QC): 4 (CGA) On/Off Footwear (QC): 5 Toileting Hygiene (QC): 4 (CGA) Toilet Transfer (QC): 4 (CGA) Assessment/Plan Assessment and Plan Assess & Plan/Chief Complaint Assessment/Plan: Debility due to illness - Inpatient rehab - PT/OT eval and treat Atrial fibrillation (Follows with Dr. Carpenter) - AV block s/p pacemaker placement; rate and rhythm controlled. 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) - Still has position deficits in leg, motor and strength almost back to normal - On clopidegril and baby aspirin - Continue statin - on Lovenox - COPD (Follows with [facility]) - Recent exacerbation - on 2L baseline, currently requiring more - continue incruse ellipta (LAMA) - DuoNebs PRN Pulmonary Fibrosis (diagnosed 3 months ago) - on sildenafil 20 - As above for COPD treatment PRN Urinary incontinence - Hodgson previous - Not currently taking reductase inhibitors/alpha blockers - Bladder scan for post void residual Hypertension - Hold home medication if normotensive T2DM - Monitor blood sugar - ISS as needed, adjust with exercise Hx of sleep apnea - Does not tolerate CPAP, uses 2L O2 NC at night - Baseline 2L Hematuria on 08/24/2022 -Hold anticoagulation and check urine Plan: Consult Cardiology Home meds O2 Monitor closely 08/22/2022: Patient doing well 08/23/2022: Eliquis 08/24/2022: Hold anticoagulation Check UA (1) COPD exacerbation DAYANA GABRIEL DO Aug 24, 2022 08:09
[2022-08-24] MEDS: UMECLIDINIUM BROMIDE (INCRUSE ELLIPTA) 7'S IH SCH (08:11)
--- NOTE | 2022-08-24 13:26 | Progress Note - Cardiology ---
Cardiology SOAP Progress Note Subjective: Gen weakness No cp or palp or syncope No n/v/d No swelling No shortness of breath at rest Objective: I&O/Vital Signs 08/24/22 08/24/22 08/24/22 08/24/22 07:00 07:57 08:02 08:11 Temp 36.8 Pulse 86 105 108 Resp 20 20 B/P (MAP) 120/71 (87) Pulse Ox 98 97 O2 Delivery Nasal Cannula Nasal Cannula Nasal Cannula O2 Flow Rate 5.00 4.50 4.50 08/24/22 12:48 Pulse 97 08/24/22 00:00 Intake Total 1850 ml Output Total 1420 ml Balance 430 ml Constitutional: AAO x 3, well-developed, well-nourished Respiratory: No accessory muscle use, No respiratory distress; chest expansion is symmetric, chest is bilaterally symmetric, other (diminished throughout) Cardiovascular: regular rate-rhythm; No JVD; S1 and S2 Gastrointestional: No tender; soft; No guarding, No rebound; audible bowel sounds Extremities: no lower extremity edema bilateral Neurologic/Psychiatric: other (moves all limbs) Skin: No rash on exposed areas, No ulcerations on exposed areas Results/Procedures: Labs Laboratory Tests 08/24/22 06:15: Sodium Level 137, Potassium Level 3.7, Chloride Level 102, Carbon Dioxide Level 29, Anion Gap 6, Blood Urea Nitrogen 10, Creatinine 0.76, Estimat Glomerular Filtration Rate 93, BUN/Creatinine Ratio 13, Glucose Level 110H, Calcium Level 8.8, Magnesium Level 1.8, Thyroid Stimulating Hormone (TSH) 0.91 Laboratory Tests 08/24/22 06:15 A/P: Assessment: Recent hospitalization at [facility] in [place], [place] d/t resp failure d/t pneumonia and Influenza A on 07-21-22 - transferred to [facility] in [place], [place] on 07-31-22 SSS. PAF with controlled vent response seen on tele of 08/23/22 (CHADSVASc score 6) - s/p pacemaker in 2019, followed by Dr Carpenter at [facility] - on apixaban for stroke prophylaxis since 08/23/22 HTN HLD Pulmonary HTN - on sildenafil and chronic oxygen at home (prior to admission) - followed by Dr. Kaur of pulmonary services in [place], [place] CARLA DM 2 H/o previous CVA - Alexa 2017 - treated at [place] - per pt source undetermined - no residual COPD H/o tobaccoism - quit 30 yrs ago Plan: * Plavix stopped after starting Eliquis (to reduce risk fo bleeding). I discussed the rationale of the change with him and answered questions * continue ASA * labs reviewed, continue to monitor labs EDUARDO LANE MD FACP [facility] CCDS Aug 24, 2022 13:26
[2022-08-24 13:40] VITALS: BP 122/78
[2022-08-24 15:42] LABS: BILIRUBIN,URINE NEGATIVE (NEGATIVE); CLARITY,URINE CLOUDY; COLOR,URINE DARK YELLOW; GLUCOSE, URINE (UA) NEGATIVE (NEGATIVE); KETONES,URINE TRACE (NEGATIVE); LEUKOCYTE ESTERASE ,URINE 3+ (NEGATIVE); NITRITE,URINE NEGATIVE (NEGATIVE); PH,URINE 5.5 (5-9); PROTEIN,URINE 1+ (NEGATIVE)
[2022-08-24 15:51] LABS: BACTERIA,URINE TRACE /HPF; RBC,URINE >100 /HPF; WBC,URINE 50-100 /HPF
[2022-08-24] MEDS ORDERED: CEFDINIR 300 MG (OMNICEF) CAP PO ONE (16:30)
[2022-08-24 20:30] VITALS: BP 120/75
[2022-08-24] MEDS: eZETimibe 10 MG (ZETIA) TABLET PO SCH (20:44)
[2022-08-24] MEDS: CEFDINIR 300 MG (OMNICEF) CAP PO SCH (20:44)
--- NOTE | 2022-08-25 04:48 | PM&R Progress Note ---
Subjective HPI/CC On Admission Date Seen by Provider: Aug 25, 2022 Time Seen by Provider: 08:30 Subjective/Events-last exam 08/25/2022: Hematuria improved No pain reported Holding OAC UTI being treated with Cipro until final Cx since it appears to be Pseudomonas. No h/o UTI per patient 08/24/2022: Patient doing pretty well Moving around pretty well Hematuria noted so we will hold Eliquis Hematuria is likely why he was not on anticoagulation to begin with with a history of chronic A. fib 08/23/2022: Improved status Onset AF on Tely so Eliquis started by Cardiology Monitoring closely 08/22/2022: Patient doing well Walking well with therapy Still very weak Maintained on oxygen Desaturation noted with activity Review of Systems General: Fatigue, Malaise Pulmonary: Dyspnea Genitourinary: Hematuria Objective Exam Vital Signs Vital Signs Date Time Temp Pulse Resp B/P (MAP) Pulse Ox O2 Delivery O2 Flow Rate FiO2 08/26/22 01:02 74 08/25/22 21:30 Nasal Cannula 5.00 08/25/22 19:53 36.8 20 122/74 (90) 94 Capillary Refill : General Appearance: No Apparent Distress, WD/WN, Chronically ill, Obese HEENT: PERRL/EOMI, Normal ENT Inspection, Pharynx Normal Neck: Full Range of Motion, Normal Inspection, Non Tender, Supple, Carotid Bruit Respiratory: Chest Non Tender, Lungs Clear, Normal Breath Sounds, No Accessory Muscle Use, No Respiratory Distress Cardiovascular: Regular Rate, Rhythm, No Edema, No Gallop, No JVD, Normal Peripheral Pulses, Systolic Murmur Gastrointestinal: Normal Bowel Sounds, No Organomegaly, No Pulsatile Mass, Non Tender, Soft Back: Normal Inspection, No CVA Tenderness, No Vertebral Tenderness Extremity: Normal Capillary Refill, Normal Inspection, Normal Range of Motion, Non Tender, No Calf Tenderness, No Pedal Edema Neurologic/Psychiatric: Alert, Oriented x3, automobile seat cover installer II-XII Norm as Tested, Abnormal Gait, Depressed Affect, Motor Weakness (generalized weakness) Skin: Normal Color, Warm/Dry Lymphatic: No Adenopathy Results/Procedures Lab Laboratory Tests 08/25/22 05:35 Patient resulted labs reviewed. FIM Transfers Therapy Code Descriptions/Definitions Functional [place] Measure: 0=Not Assessed/NA 4=Minimal Assistance 1=Total Assistance 5=Supervision or Setup 2=Maximal Assistance 6=Modified [place] 3=Moderate Assistance 7=Complete IndependenceSCALE: Activities may be completed with or without assistive devices. 3-Mthldkdpbc-csqyldx completes the activity by him/herself with no assistance fr om a helper. 5-Set-up or Clean-up Assistance-helper sets up or cleans up; patient completes activity. [place] assists only prior to or following the activity. 4-Supervision or Touching Assistance-helper provides verbal cues and/or touching/steadying and/or contact guard assistance as patient completes activity. Assistance may be provided throughout the activity or intermittently. 3-Partial/Moderate Assistance-helper does LESS THAN HALF the effort. [place] lifts, holds or supports trunk or limbs, but provides less than half the effort. 2-Substantial/Maximal Assistance-helper does MORE THAN HALF the effort. [place] lifts or holds trunk or limbs and provides more than half the effort. 2-Zmnqeodet-kloxwt does ALL the effort. Patient does none of the effort to complete the activity. Or, the assistance of 2 or more helpers is required for the patient to complete the activity. If activity was not attempted, code reason: 7-Patient Refused. 9-Not Applicable-not attempted and the patient did not perform the activity before the current illness, exacerbation or injury. 10-Not Attempted due to Environmental Limitations-(lack of equipment, weather restraints, etc.). 88-Not Attempted due to Medical Conditions or Safety Concerns. Roll Left to Right (QC): 4 Sit to Lying (QC): 4 Sit to Stand (QC): 4 Chair/Igx-ch-Plccx Xfer(QC): 4 Car Transfer (QC): 4 Gait Training Does the Patient Walk?: Yes Distance: 30, 30 Walk 10 feet (QC): 4 Walk 50 ft with 2 Turns(QC): 4 Walk 150 ft (QC): 4 Walking 10ft/uneven surface-QC: 4 Gait Persons Needed: 1 Gait Assistive Device: FWW Wheelchair Training Does the Pt Use a Wheelchair?: No Distance: 150' Wheel 50 ft with 2 turns (QC): 3 Wheel 150 ft (QC): 3 Type of Wheelchair: Manual Stair Training #of Steps: 1 1 Step (curb) (QC): 4 4 Steps (QC): 88 12 Steps (QC): 88 Balance Picking up an Object (QC): 4 (CGA using a machine maintenance repairer) ADL-Treatment Eating (QC): 6 Oral Hygiene (QC): 5 Shower/Bathe Self (QC): 4 (CGA sponge bath.) Upper Body Dressing (QC): 5 Lower Body Dressing (QC): 4 (CGA) On/Off Footwear (QC): 5 Toileting Hygiene (QC): 4 (CGA) Toilet Transfer (QC): 4 (CGA) Assessment/Plan Assessment and Plan Assess & Plan/Chief Complaint Assessment/Plan: Debility due to illness - Inpatient rehab - PT/OT eval and treat Atrial fibrillation (Follows with Dr. Carpenter) - AV block s/p pacemaker placement; rate and rhythm controlled. 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) - Still has position deficits in leg, motor and strength almost back to normal - On clopidegril and baby aspirin - Continue statin - COPD (Follows with [facility]) - Recent exacerbation - on 2L baseline, currently requiring more - continue incruse ellipta (LAMA) - DuoNebs PRN Pulmonary Fibrosis (diagnosed 3 months ago) - on sildenafil 20 - As above for COPD treatment PRN Urinary incontinence - [place] previous - Not currently taking reductase inhibitors/alpha blockers - Bladder scan for post void residual Hypertension - Hold home medication if normotensive T2DM - Monitor blood sugar - ISS as needed, adjust with exercise Hx of sleep apnea - Does not tolerate CPAP, uses 2L O2 NC at night - Baseline 2L Hematuria on 08/24/2022 -Hold anticoagulation and check urine UTI Pseudomonas Plan: Consult Cardiology Home meds O2 Monitor closely 08/22/2022: Patient doing well 08/23/2022: Eliquis 08/24/2022: Hold anticoagulation Check UA 08/25/2022: Change abx to Cipro and await UCx (1) COPD exacerbation DAYANA GABRIEL DO Aug 25, 2022 04:48
[2022-08-25] MEDS: MULTIVIT W/MINERALS TAB (THERAGRAN M) PO SCH (05:35)
[2022-08-25 05:53] LABS: BASOPHILS % (AUTO) 0 % (0-10); EOSINOPHILS # (AUTO) 0.1 10^3/uL (0.0-0.3); EOSINOPHILS % (AUTO) 1 % (0-10); HEMOGLOBIN 13.4 g/dL (13.3-17.7)
[2022-08-25 05:55] LABS: HEMATOCRIT 40 % (40-54); LYMPHOCYTES % (AUTO) 35 % (12-44); MEAN CORPUSCULAR HEMOGLOBIN 32 pg (25-34); MEAN CORPUSCULAR HGB CONC 34 g/dL (32-36); MEAN CORPUSCULAR VOLUME 95 fL (80-99); MEAN PLATELET VOLUME 9.4 fL (9.0-12.2); MONOCYTES # (AUTO) 0.8 10^3/uL (0.0-1.0); MONOCYTES % (AUTO) 14 % (0-12); NEUTROPHILS # (AUTO) 2.7 10^3/uL (1.8-7.8); NEUTROPHILS % (AUTO) 47 % (42-75); PLATELET COUNT 142 10^3/uL (130-400); WHITE BLOOD COUNT 5.6 10^3/uL (4.3-11.0)
[2022-08-25 06:19] LABS: BILIRUBIN,TOTAL 0.6 MG/DL (0.1-1.0); CREATININE SERUM 0.83 MG/DL (0.60-1.30); POTASSIUM 3.7 MMOL/L (3.6-5.0); TOTAL PROTEIN 5.8 GM/DL (6.4-8.2)
[2022-08-25] MEDS: UMECLIDINIUM BROMIDE (INCRUSE ELLIPTA) 7'S IH SCH (07:17)
[2022-08-25 07:47] VITALS: BP 138/85
[2022-08-25] MEDS: PANTOPRAZOLE 40 MG (PROTONIX) TAB PO SCH (08:15)
[2022-08-25] MEDS: CEFDINIR 300 MG (OMNICEF) CAP PO SCH (08:15)
[2022-08-25] MEDS: predniSONE 10 MG TAB PO SCH (08:15)
[2022-08-25] MEDS: ASPIRIN 81 MG CHEW (CHILDREN'S ASA) PO SCH (08:15)
[2022-08-25] MEDS: meTOprolol TARTRATE 50 MG (LOPRESSOR) TAB PO SCH ×3 (08:15→21:26)
[2022-08-25] MEDS: SENNA W/DOCUSATE (SENOKOT S) TABLET PO SCH ×2 (08:16→21:43)
[2022-08-25] MEDS: polyethylene glycoL POWDER 17 GM (MIRALAX) PACK PO SCH ×2 (08:16→21:43)
[2022-08-25] MEDS: SILDENAFIL 20 MG (REVATIO) TAB PO SCH (08:16)
[2022-08-25] MEDS: DOCUSATE SODIUM 100 MG (COLACE) CAP PO SCH ×4 (08:16→21:42)
--- NOTE | 2022-08-25 08:41 | Occupational Ther Daily Note ---
OT Current Status-Daily Note Subjective Pt up in recliner, agreeable to OT tx. Mental Status/Objective Patient Orientation: Normal For Age Attachments: Oxygen (5-6L NC) ADL-Treatment Therapy Code Descriptions/Definitions Functional [place] Measure: 0=Not Assessed/NA 4=Minimal Assistance 1=Total Assistance 5=Supervision or Setup 2=Maximal Assistance 6=Modified [place] 3=Moderate Assistance 7=Complete IndependenceSCALE: Activities may be completed with or without assistive devices. 6-Zochrvmpmd-htgndga completes the activity by him/herself with no assistance from a helper. 5-Set-up or Clean-up Assistance-helper sets up or cleans up; patient completes activity. [place] assists only prior to or following the activity. 4-Supervision or Touching Assistance-helper provides verbal cues and/or touching/steadying and/or contact guard assistance as patient completes activity. Assistance may be provided throughout the activity or intermittently. 3-Partial/Moderate Assistance-helper does LESS THAN HALF the effort. [place] lifts, holds or supports trunk or limbs, but provides less than half the effort. 2-Substantial/Maximal Assistance-helper does MORE THAN HALF the effort. [place] l ifts or holds trunk or limbs and provides more than half the effort. 0-Qqkvtbweh-tlkxox does ALL the effort. Patient does none of the effort to complete the activity. Or, the assistance of 2 or more helpers is required for the patient to complete the activity. If activity was not attempted, code reason: 7-Patient Refused. 9-Not Applicable-not attempted and the patient did not perform the activity before the current illness, exacerbation or injury. 10-Not Attempted due to Environmental Limitations-(lack of equipment, weather restraints, etc.). 88-Not Attempted due to Medical Conditions or Safety Concerns. Toileting Hygiene (QC): 3 (Min A with pant hike in back.) Toilet Transfer (QC): 4 (SBA on/off BSC over toilet.) Other Treatment Pt in recliner, used FWW to transfer into bathroom and onto toilet. O2 saturation 78% on 5L NC, O2 switched to 6L NC per RN with activity. Pt recovered back into the 90%'s after a few minutes. Pt completed toileting, min A with pant hike, then transferred to w/c, SBA using FWW. Pt took medications provided by RN, then propelled w/c to therapy gym. Pt required min A with w/c mobility, due to decreased L hand coordination/sensation from previous CVA. O2 saturation 87% after w/c mobility on 6L, increased to 90% within ~30 seconds. OT tx focused on increasing BUE Strength and activity tolerance. Pt completed arm bike x3 mins, 20 Watt resistance, O2 saturation at 84%. Pt breathing heavily, requiring several minutes to catch his breath, although O2 saturation was in 90%'s. Pt completed an additional 3 mins on arm bike, O2 saturation at 98%. Pt taken back to his room via w/c, transferred to recliner using FWW, SBA. Post tx, pt on 5L NC, O2 saturation in mid 90%s. Post tx, pt in recliner, call light in reach and all needs met. Education OT Patient Education: Correct positioning, Energy conservation, Exercise program, Modified ADL techniques, Progress toward Goal/Update tx plan, Purpose of tx/functional activities, Rehab process Teaching Recipient: Patient Teaching Methods: Discussion Response to Teaching: Verbalize Understanding OT Short Term Goals Short Term Goals Time Frame: Sep 05, 2022 Shower/bathe self: 5 Lower body dressin OT Instrument And Electrical Technician Goals Retirement Goals Time Frame: Sep 19, 2022 Acute change in mental status: 0 Inattention: 0 Disorganized thinkin Altered level of consciousness: 0 Eating (QC): 6 Oral Hygiene (QC): 6 Toileting Hygiene (QC): 6 Shower/Bathe Self (QC): 6 Upper Body Dressing (QC): 6 Lower Body Dressing (QC): 6 On/Off Footwear (QC): 6 Additional Goals: 1-Demonstrate ADL Tasks, 2-Verbalize Understanding, 3- ImproveStrength/Cece 1=Demonstrate adherence to instructed precautions during ADL tasks. 2=Patient will verbalize/demonstrate understanding of assistive devices /modifications for ADL. 3=Patient will improve strength/tolerance for activity to enable patient to perform ADL's. OT Education/Plan Problem List/Assessment Assessment: Decreased Activ Tolerance, Decreased UE Strength, Impaired Funct Balance, Impaired I ADL's, Impaired Self-Care Skills Discharge Recommendations Plan/Recommendations: Continue POC Treatment Plan/Plan of Care Patient would benefit from OT for education, treatment and training to promote independence in ADL's, mobility, safety and/or upper extremity function for ADL's. Plan of Care: ADL Retraining, Functional Mobility, Group Exercise/Act as Ind, UE Funct Exercise/Act Treatment Duration: Sep 19, 2022 Frequency: Modified Program (IRF) (14/02) Estimated Hrs Per Day: 1.5 hours per day (1-1.5 hours per day) Agreement: Yes Rehab Potential: Fair Time Start Time: 08:00 Stop Time: 09:00 DATE: Aug 25, 2022 Total Time Billed (hr/min): 60 Billed Treatment Time 1, ADL 2 (30'), EX (15'), FA (15') LEONEL CARVALHO OT Aug 25, 2022 08:41
--- NOTE | 2022-08-25 09:31 | Progress Note - Cardiology ---
Cardiology SOAP Progress Note Objective: I&O/Vital Signs 08/25/22 08/26/22 08/26/22 21:30 01:02 07:37 Pulse 74 Pulse Ox 97 O2 Delivery Nasal Cannula Nasal Cannula O2 Flow Rate 5.00 5.00 08/26/22 00:00 Intake Total 1080 ml Output Total 200 ml Balance 880 ml Constitutional: AAO x 3, well-developed, well-nourished Respiratory: No accessory muscle use, No respiratory distress; chest expansion is symmetric, chest is bilaterally symmetric, other (diminished throughout) Cardiovascular: regular rate-rhythm; No JVD; S1 and S2 Gastrointestional: No tender; soft; No guarding, No rebound; audible bowel sounds Extremities: no lower extremity edema bilateral Neurologic/Psychiatric: other (moves all limbs) Skin: No rash on exposed areas, No ulcerations on exposed areas Results/Procedures: Labs Microbiology 08/24/22 Urine Culture - Preliminary, Resulted Probable Pseudomonas A/P: Assessment: Recent hospitalization at [facility] in [place], [place] d/t resp failure d/t pneumonia and Influenza A on 07-21-22 - transferred to [facility] in [place], [place] on 07-31-22 SSS. PAF with controlled vent response seen on tele of 08/23/22 (CHADSVASc score 6) - s/p pacemaker in 2019, followed by Dr Carpenter at [facility] - had been on apixaban for stroke prophylaxis since 08/23/22 - stopped (by medical services) d/t episode of hematuria UTI - management per medical services HTN HLD Pulmonary HTN - on sildenafil and chronic oxygen at home (prior to admission) - followed by Dr. Kaur of pulmonary services in [place], [place] CARLA DM 2 H/o previous CVA - Alexa2016 - treated at [facility] - per pt source undetermined - no residual COPD H/o tobaccoism - quit 30 yrs ago Plan: * Plavix was stopped after starting Eliquis (to reduce risk fo bleeding) * Eliquis stopped per medical services d/t episode of hematuria - advise urology consult to determine cause of hematuria so that OAC can be resumed to reduce his risk of blood clot stroke d/t PAF * continue ASA * labs reviewed, continue to monitor labs * UTI - management per medical services EMETERIO HUYNH Aug 25, 2022 09:31
[2022-08-25] MEDS: CIPROFLOXACIN 500 MG (CIPRO) TABLET PO SCH ×2 (09:58→21:26)
[2022-08-25] MEDS ORDERED: RT-IPRATROPIUM (ATROVENT) 0.5MG/2.5ML AMP IH PRN (13:30)
[2022-08-25] MEDS ORDERED: RT-ALBUTEROL SULF 2.5 MG/3 ML PRE-MIX VIAL IH PRN (13:30)
--- NOTE | 2022-08-25 13:56 | Occupational Ther Daily Note ---
OT Current Status-Daily Note Subjective Pt in recliner, agreeable to OT tx. Mental Status/Objective Attachments: Oxygen (5L) ADL-Treatment Therapy Code Descriptions/Definitions Functional [place] Measure: 0=Not Assessed/NA 4=Minimal Assistance 1=Total Assistance 5=Supervision or Setup 2=Maximal Assistance 6=Modified [place] 3=Moderate Assistance 7=Complete IndependenceSCALE: Activities may be completed with or without assistive devices. 3-Fcfvlzcefq-ukkjtfz completes the activity by him/herself with no assistance from a helper. 5-Set-up or Clean-up Assistance-helper sets up or cleans up; patient completes activity. [place] assists only prior to or following the activity. 4-Supervision or Touching Assistance-helper provides verbal cues and/or touching/steadying and/or contact guard assistance as patient completes activi ty. Assistance may be provided throughout the activity or intermittently. 3-Partial/Moderate Assistance-helper does LESS THAN HALF the effort. [place] lifts, holds or supports trunk or limbs, but provides less than half the effort. 2-Substantial/Maximal Assistance-helper does MORE THAN HALF the effort. [place] lifts or holds trunk or limbs and provides more than half the effort. 9-Ppgbilrse-ucdngd does ALL the effort. Patient does none of the effort to complete the activity. Or, the assistance of 2 or more helpers is required for the patient to complete the activity. If activity was not attempted, code reason: 7-Patient Refused. 9-Not Applicable-not attempted and the patient did not perform the activity before the current illness, exacerbation or injury. 10-Not Attempted due to Environmental Limitations-(lack of equipment, weather restraints, etc.). 88-Not Attempted due to Medical Conditions or Safety Concerns. Other Treatment Pt up in recliner, declined need to toilet at this time. OT tx focused on increasing BUE Strength and activity tolerance. Pt completed BUE exercises using moderate resistance (red) theratubing. Pt completed 4/4 exercises, x10 reps each, BUEs, including: shoulder flexion, horizontal abduction, elbow flexion and elbow extension. Pt required significant rest breaks between exercises. Pt used incentive spirometer x10 reps to increase lung function and activity tolerance. Post tx, pt in recliner, call light in reach and all needs met. Education OT Patient Education: Correct positioning, Energy conservation, Modified ADL techniques, Progress toward Goal/Update tx plan, Purpose of tx/functional activities Teaching Recipient: Patient, Significant Other Response to Teaching: Verbalize Understanding OT Short Term Goals Short Term Goals Time Frame: Sep 05, 2022 Shower/bathe self: 5 Lower body dressin OT Halfway Goals Armoring Machine Operator Goals Time Frame: Sep 19, 2022 Acute change in mental status: 0 Inattention: 0 Disorganized thinkin Altered level of consciousness: 0 Eating (QC): 6 Oral Hygiene (QC): 6 Toileting Hygiene (QC): 6 Shower/Bathe Self (QC): 6 Upper Body Dressing (QC): 6 Lower Body Dressing (QC): 6 On/Off Footwear (QC): 6 Additional Goals: 1-Demonstrate ADL Tasks, 2-Verbalize Understanding, 3- ImproveStrength/Cece 1=Demonstrate adherence to instructed precautions during ADL tasks. 2=Patient will verbalize/demonstrate understanding of assistive devices/modifications for ADL. 3=Patient will improve strength/tolerance for activity to enable patient to perform ADL's. OT Education/Plan Problem List/Assessment Assessment: Decreased Activ Tolerance, Decreased UE Strength, Impaired Funct Balance, Impaired I ADL's, Impaired Self-Care Skills Discharge Recommendations Plan/Recommendations: Continue POC Treatment Plan/Plan of Care Patient would benefit from OT for education, treatment and training to promote independence in ADL's, mobility, safety and/or upper extremity function for ADL's. Plan of Care: ADL Retraining, Functional Mobility, Group Exercise/Act as Ind, UE Funct Exercise/Act Treatment Duration: Sep 19, 2022 Frequency: Modified Program (IRF) (14/02) Estimated Hrs Per Day: 1.5 hours per day (1-1.5 hours per day) Agreement: Yes Rehab Potential: Fair Time Start Time: 13:00 Stop Time: 14:00 DATE: Aug 25, 2022 Total Time Billed (hr/min): 30 Billed Treatment Time 1, EX 2 LEONEL CARVALHO OT Aug 25, 2022 13:56
--- NOTE | 2022-08-25 14:26 | Physical Therapy Daily Note ---
PT Daily Note-Current Subjective Pt found seated in recliner upon entry. Agreed to PT. States that he is not having any pain. Pt reports that he is a "little winded" /c gait training. Pain Section J - Health Conditions 1. Rarely or not at all 2. Occasionally 3. Frequently 4. Almost constantly 8. Unable to answer Pain Effect on Sleep: 2 Pain Interference with Therapy: 2 Pain Interference w/Day-to-Day: 2 Mental Status Patient Orientation: Normal For Age Attachments: Oxygen 6L Transfers SCALE: Activities may be completed with or without assistive devices. 9-Fvjgyhfqic-qakxkdh completes the activity by him/herself with no assistance from a helper. 5-Set-up or Clean-up Assistance-helper sets up or cleans up; patient completes activity. [place] assists only prior to or following the activity. 4-Supervision or Touching Assistance-helper provides verbal cues and/or touching/steadying and/or contact guard assistance as patient completes activity. Assistance may be provided throughout the activity or intermittently. 3-Partial/Moderate Assistance-helper does LESS THAN HALF the effort. [place] lifts, holds or supports trunk or limbs, but provides less than half the effort. 2-Substantial/Maximal Assistance-helper does MORE THAN HALF the effort. [place] lifts or holds trunk or limbs and provides more than half the effort. 1-Xohuwerza-msxwrs does ALL the effort. Patient does none of the effort to complete the activity. Or, the assistance of 2 or more helpers is required for the patient to complete the activity. If activity was not attempted, code reason: 7-Patient Refused. 9-Not Applicable-not attempted and the patient did not perform the activity before the current illness, exacerbation or injury. 10-Not Attempted due to Environmental Limitations-(lack of equipment, weather restraints, etc.). 88-Not Attempted due to Medical Conditions or Safety Concerns. Sit to Stand (QC): 4 Pt SBA /c sit<->stand trfs. Gait Training Does the Patient Walk?: Yes Distance: 20, 80, 80, 20 Walk 10 feet (QC): 4 Walk 50 ft with 2 Turns(QC): 4 Gait Persons Needed: 1 Gait Assistive Device: FWW Pt SBA /c gait training. Amb. 200ft total /c FWW. Wheelchair Training Does the Pt Use a Wheelchair?: Yes Type of Wheelchair: Manual Exercises Standing: Hamstring curls, Heel/toe raises, Mini squats Standing Reps: 10 Demonstrated SOB /c standing ther-x. NuStep Minutes: 15 NuStep Workload: 4 Assessment Current Status: Good Progress Pt O2 sats were monitored throughout Tx. Pt O2 sats were measured at 72-75% after gait training. Pt then takes seated RBs until O2 sats stabilize at 95-99%. Pt becomes more unsteady /c gait training the further they amb. Most likely d/t fatigue and SOB. Continue to progress pt as tolerated per POC to improve activity tolerance. PT Short Term Goals Short Term Goals Time Frame: Aug 28, 2022 Sit to stand: 4 Chair/ekb-vf-dvwes transfer: 4 Walk 10 feet: 4 Walk 50 feet with two turns: 4 Walk 150 feet: 4 PT Residential Goals Residential Goals PT Earth Sciences Professor Goals Time Frame: Sep 04, 2022 Roll Left & Right (QC): 6 Sit to Lying (QC): 6 Lying-Sitting on Side/Bed(QC): 6 Sit to Stand (QC): 6 Chair/Utb-fm-Pdcah Xfer(QC): 6 Toilet Transfer (QC): 6 Car Transfer (QC): 6 Does the Patient Walk: Yes Walk 10 feet (QC): 6 Walk 50ft with 2 Turns (QC): 6 Walk 150 ft (QC): 6 Walking 10ft on Uneven Surface: 6 1 Step (curb) (QC): 4 (SBA) 4 Steps (QC): 4 (SBA) 12 Steps (QC): 88 Picking up an Object (QC): 6 Wheel 50 feet with 2 turns (QC: 9 Wheel 150 feet: 9 PT Plan Treatment/Plan Treatment Plan: Continue Plan of Care Treatment Plan: Bed Mobility, Education, Functional Activity Cece, Functional Strength, Group Therapy, Gait, Safety, Therapeutic Exercise, Transfers Treatment Duration: Sep 04, 2022 Frequency: At least 5 of 7 days/Wk (IRF) Estimated Hrs Per Day: 1.5 hours per day Patient and/or Family Agrees t: Yes Time Time In: 0900 Time Out: 1000 DATE: Aug 25, 2022 Total Billed Treatment Time: 60 Total Billed Treatment 1 visit GT 2x EX 2x MAJOR,ABHIJEET SALES DEVELOPMENT REPRESENTATIVE Aug 25, 2022 14:26
--- NOTE | 2022-08-25 14:38 | Physical Therapy Daily Note ---
PT Daily Note-Current Subjective Pt found seated in recliner upon entry. Agreed to PT. States that he does not have any pain but reports that he is a little tired. Pain Section J - Health Conditions 1. Rarely or not at all 2. Occasionally 3. Frequently 4. Almost constantly 8. Unable to answer Pain Effect on Sleep: 2 Pain Interference with Therapy: 2 Pain Interference w/Day-to-Day: 2 Mental Status Patient Orientation: Normal For Age Attachments: Oxygen 6L Transfers SCALE: Activities may be completed with or without assistive devices. 6-Uovniuknzg-ismeoal completes the activity by him/herself with no assistance from a helper. 5-Set-up or Clean-up Assistance-helper sets up or cleans up; patient completes activity. [place] assists only prior to or following the activity. 4-Supervision or Touching Assistance-helper provides verbal cues and/or touching/steadying and/or contact guard assistance as patient completes activity. Assistance may be provided throughout the activity or intermittently. 3-Partial/Moderate Assistance-helper does LESS THAN HALF the effort. [place] lifts, holds or supports trunk or limbs, but provides less than half the effort. 2-Substantial/Maximal Assistance-helper does MORE THAN HALF the effort. [place] lifts or holds trunk or limbs and provides more than half the effort. 1-Kwixctduz-puwyfg does ALL the effort. Patient does none of the effort to complete the activity. Or, the assistance of 2 or more helpers is required for the patient to complete the activity. If activity was not attempted, code reason: 7-Patient Refused. 9-Not Applicable-not attempted and the patient did not perform the activity before the current illness, exacerbation or injury. 10-Not Attempted due to Environmental Limitations-(lack of equipment, weather restraints, etc.). 88-Not Attempted due to Medical Conditions or Safety Concerns. Sit to Stand (QC): 4 Pt SBA /c sit<->stand trfs. Gait Training Does the Patient Walk?: Yes Distance: 100, 100 Walk 10 feet (QC): 4 Walk 50 ft with 2 Turns(QC): 4 Gait Persons Needed: 1 Gait Assistive Device: FWW Pt SBA /c gait training. Amb. 200ft total /c FWW. Wheelchair Training Does the Pt Use a Wheelchair?: No Exercises Seated Therapy Exercises: Long arc quads, Hip flexion Seated Reps: 10 No pain or SOB demonstrated /c exercise. Assessment Current Status: Good Progress Pt demonstrated improved gait distance this visit. O2 sat 74% at lowest point post-gait training. Stabilized to 94-99% /c seated RBs and deep breathing techniques. Displays good strength /c seated ther-x. Continue to progress pt as tolerated per POC to improve activity and gait tolerance. PT Short Term Goals Short Term Goals Time Frame: Aug 28, 2022 Sit to stand: 4 Chair/tap-vl-kyaqn transfer: 4 Walk 10 feet: 4 Walk 50 feet with two turns: 4 Walk 150 feet: 4 PT Winter[place] Goals Winterizer Goals PT Fpc Goals Time Frame: Sep 04, 2022 Roll Left & Right (QC): 6 Sit to Lying (QC): 6 Lying-Sitting on Side/Bed(QC): 6 Sit to Stand (QC): 6 Chair/Kbj-it-Lkzom Xfer(QC): 6 Toilet Transfer (QC): 6 Car Transfer (QC): 6 Does the Patient Walk: Yes Walk 10 feet (QC): 6 Walk 50ft with 2 Turns (QC): 6 Walk 150 ft (QC): 6 Walking 10ft on Uneven Surface: 6 1 Step (curb) (QC): 4 (SBA) 4 Steps (QC): 4 (SBA) 12 Steps (QC): 88 Picking up an Object (QC): 6 Wheel 50 feet with 2 turns (QC: 9 Wheel 150 feet: 9 PT Plan Treatment/Plan Treatment Plan: Continue Plan of Care Treatment Plan: Bed Mobility, Education, Functional Activity Cece, Functional Strength, Group Therapy, Gait, Safety, Therapeutic Exercise, Transfers Treatment Duration: Sep 04, 2022 Frequency: At least 5 of 7 days/Wk (IRF) Estimated Hrs Per Day: 1.5 hours per day Patient and/or Family Agrees t: Yes Time Time In: 1030 Time Out: 1100 DATE: Aug 25, 2022 Total Billed Treatment Time: 30 Total Billed Treatment 1 visit GT 1x EX 1x ABHIJEET RAMIREZ SENIOR QUALITATIVE RESEARCHER Aug 25, 2022 14:38
--- NOTE | 2022-08-25 17:03 | Progress Note - Cardiology ---
Cardiology SOAP Progress Note Subjective: Shortness of breath is better No cp or palp or syncope No n/v/d Gen weakness and malaise present No focal weakness Objective: I&O/Vital Signs 08/25/22 08/25/22 08/25/22 08/25/22 07:12 07:18 07:47 08:59 Temp 36.3 Pulse 111 110 Resp 30 B/P (MAP) 138/85 (102) Pulse Ox 92 92 O2 Delivery Nasal Cannula Nasal Cannula Nasal Cannula O2 Flow Rate 4.00 5.00 5.00 08/25/22 12:32 Pulse 87 08/25/22 00:00 Intake Total 2320 ml Output Total 1450 ml Balance 870 ml Constitutional: AAO x 3, well-developed, well-nourished Respiratory: No accessory muscle use, No respiratory distress; chest expansion is symmetric, chest is bilaterally symmetric, other (diminished throughout) Cardiovascular: regular rate-rhythm; No JVD; S1 and S2 Gastrointestional: No tender; soft; No guarding, No rebound; audible bowel sounds Extremities: no lower extremity edema bilateral Neurologic/Psychiatric: other (moves all limbs) Skin: No rash on exposed areas, No ulcerations on exposed areas Results/Procedures: Labs Laboratory Tests 08/25/22 05:35: White Blood Count 5.6, Red Blood Count 4.20L, Hemoglobin 13.4, Hematocrit 40, Mean Corpuscular Volume 95, Mean Corpuscular Hemoglobin 32, Mean Corpuscular Hemoglobin Concent 34, Red Cell Distribution Width 14.6H, Platelet Count 142, Mean Platelet Volume 9.4, Immature Granulocyte % (Auto) 2, Neutrophils (%) (Auto) 47, Lymphocytes (%) (Auto) 35, Monocytes (%) (Auto) 14H, Eosinophils (%) (Auto) 1, Basophils (%) (Auto) 0, Neutrophils # (Auto) 2.7, Lymphocytes # (Auto) 2.0, Monocytes # (Auto) 0.8, Eosinophils # (Auto) 0.1, Basophils # (Auto) 0.0, Immature Granulocyte # (Auto) 0.1, Percent Immature Platelet Fraction 1.8, Sodium Level 137, Potassium Level 3.7, Chloride Level 101, Carbon Dioxide Level 28, Anion Gap 8, Blood Urea Nitrogen 14, Creatinine 0.83, Estimat Glomerular Filtration Rate 91, BUN/Creatinine Ratio 17, Glucose Level 115H, Calcium Level 9.0, Corrected Calcium 9.8, Total Bilirubin 0.6, Aspartate Amino Transf (AST/SGO T) 23, Alanine Aminotransferase (ALT/SGPT) 46, Alkaline Phosphatase 56, Total Protein 5.8L, Albumin 3.0L Microbiology 08/24/22 Urine Culture - Preliminary, Resulted Probable Pseudomonas Laboratory Tests 08/24/22 06:15 08/25/22 05:35 A/P: Assessment: Recent hospitalization at [facility] in [place], [place] d/t resp failure d/t pneumonia and Influenza A on 07-21-22 - transferred to [facility] in [place], [place] on 07-31-22 SSS. PAF with controlled vent response seen on tele of 08/23/22 (CHADSVASc score 6) - s/p pacemaker in 2019, followed by Dr Carpenter at [facility] - had been on apixaban for stroke prophylaxis since 08/23/22 - stopped (by medical services) d/t episode of hematuria UTI - management per medical services HTN HLD Pulmonary HTN - on sildenafil and chronic oxygen at home (prior to admission) - followed by Dr. Kaur of pulmonary services in [place], [place] CARLA DM 2 H/o previous CVA - 2016 - treated at [place] - per pt source undetermined - no residual COPD H/o tobaccoism - quit 30 yrs ago Plan: * Plavix was stopped after starting Eliquis (to reduce risk fo bleeding) * Eliquis stopped per medical services d/t episode of hematuria - advise urology consult to determine cause of hematuria so that OAC can be resumed to reduce his risk of blood clot stroke d/t PAF * continue ASA * labs reviewed, continue to monitor labs * UTI - management per medical services EDUARDO LANE MD FACP FAC CCDS Aug 25, 2022 17:03
[2022-08-25 19:53] VITALS: BP 122/74
[2022-08-25] MEDS: eZETimibe 10 MG (ZETIA) TABLET PO SCH (21:26)
[2022-08-26] MEDS: MULTIVIT W/MINERALS TAB (THERAGRAN M) PO SCH (06:48)
--- NOTE | 2022-08-26 07:01 | PM&R Progress Note ---
Subjective HPI/CC On Admission Date Seen by Provider: Aug 26, 2022 Time Seen by Provider: 08:30 Subjective/Events-last exam 08/26/2022: Improved status Cipro maintained for UTI No pain reported O2 sat stable 08/25/2022: Hematuria improved No pain reported Holding OAC UTI being treated with Cipro until final Cx since it appears to be Pseudomonas. No h/o UTI per patient 08/24/2022: Patient doing pretty well Moving around pretty well Hematuria noted so we will hold Eliquis Hematuria is likely why he was not on anticoagulation to begin with with a h istory of chronic A. fib 08/23/2022: Improved status Onset AF on Tely so Eliquis started by Cardiology Monitoring closely 08/22/2022: Patient doing well Walking well with therapy Still very weak Maintained on oxygen Desaturation noted with activity Review of Systems General: Fatigue, Malaise Pulmonary: Dyspnea Objective Exam Vital Signs Vital Signs Date Time Temp Pulse Resp B/P (MAP) Pulse Ox O2 Delivery O2 Flow Rate FiO2 08/27/22 01:00 81 08/26/22 21:15 Nasal Cannula 5.00 08/26/22 19:46 18 122/66 (84) 96 08/26/22 10:44 36.4 Capillary Refill : General Appearance: No Apparent Distress, WD/WN, Chronically ill, Obese HEENT: PERRL/EOMI, Normal ENT Inspection, Pharynx Normal Neck: Full Range of Motion, Normal Inspection, Non Tender, Supple, Carotid Bruit Respiratory: Chest Non Tender, Lungs Clear, Normal Breath Sounds, No Accessory Muscle Use, No Respiratory Distress Cardiovascular: Regular Rate, Rhythm, No Edema, No Gallop, No JVD, Normal Peripheral Pulses, Systolic Murmur Gastrointestinal: Normal Bowel Sounds, No Organomegaly, No Pulsatile Mass, Non Tender, Soft Back: Normal Inspection, No CVA Tenderness, No Vertebral Tenderness Extremity: Normal Capillary Refill, Normal Inspection, Normal Range of Motion, Non Tender, No Calf Tenderness, No Pedal Edema Neurologic/Psychiatric: Alert, Oriented x3, merchant seaman II-XII Norm as Tested, Abnormal Gait, Depressed Affect, Motor Weakness (generalized weakness) Skin: Normal Color, Warm/Dry Lymphatic: No Adenopathy Results/Procedures Lab Patient resulted labs reviewed. FIM Transfers Therapy Code Descriptions/Definitions Functional [place] Measure: 0=Not Assessed/NA 4=Minimal Assistance 1=Total Assistance 5=Supervision or Setup 2=Maximal Assistance 6=Modified [place] 3=Moderate Assistance 7=Complete IndependenceSCALE: Activities may be completed with or without assistive devices. 0-Oqvaxcocpq-pahddwn completes the activity by him/herself with no assistance from a helper. 5-Set-up or Clean-up Assistance-helper sets up or cleans up; patient completes activity. [place] assists only prior to or following the activity. 4-Supervision or Touching Assistance-helper provides verbal cues and/or touching/steadying and/or contact guard assistance as patient completes activity. Assistance may be provided throughout the activity or intermittently. 3-Partial/Moderate Assistance-helper does LESS THAN HALF the effort. [place] lifts, holds or supports trunk or limbs, but provides less than half the effort. 2-Substantial/Maximal Assistance-helper does MORE THAN HALF the effort. [place] lifts or holds trunk or limbs and provides more than half the effort. 5-Hpewpkdjh-rlurvm does ALL the effort. Patient does none of the effort to complete the activity. Or, the assistance of 2 or more helpers is required for the patient to complete the activity. If activity was not attempted, code reason: 7-Patient Refused. 9-Not Applicable-not attempted and the patient did not perform the activity before the current illness, exacerbation or injury. 10-Not Attempted due to Environmental Limitations-(lack of equipment, weather restraints, etc.). 88-Not Attempted due to Medical Conditions or Safety Concerns. Roll Left to Right (QC): 4 Sit to Lying (QC): 4 Sit to Stand (QC): 4 Chair/Anv-yw-Nlfzt Xfer(QC): 4 Car Transfer (QC): 4 Gait Training Does the Patient Walk?: Yes Distance: 100, 100 Walk 10 feet (QC): 4 Walk 50 ft with 2 Turns(QC): 4 Walk 150 ft (QC): 4 Walking 10ft/uneven surface-QC: 4 Gait Persons Needed: 1 Gait Assistive Device: FWW Wheelchair Training Does the Pt Use a Wheelchair?: No Distance: 150' Wheel 50 ft with 2 turns (QC): 3 Wheel 150 ft (QC): 3 Type of Wheelchair: Manual Stair Training #of Steps: 1 1 Step (curb) (QC): 4 4 Steps (QC): 88 12 Steps (QC): 88 Balance Picking up an Object (QC): 4 (CGA using a lathe tender) ADL-Treatment Eating (QC): 6 Oral Hygiene (QC): 5 Shower/Bathe Self (QC): 4 (CGA sponge bath.) Upper Body Dressing (QC): 5 Lower Body Dressing (QC): 4 (CGA) On/Off Footwear (QC): 5 Toileting Hygiene (QC): 3 (Min A with pant hike in back.) Toilet Transfer (QC): 4 (SBA on/off BSC over toilet.) Assessment/Plan Assessment and Plan Assess & Plan/Chief Complaint Assessment/Plan: Debility due to illness - Inpatient rehab - PT/OT eval and treat Atrial fibrillation (Follows with Dr. Carpenter) - AV block s/p pacemaker placement; rate and rhythm controlled. 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) - Still has position deficits in leg, motor and strength almost back to normal - On clopidegril and baby aspirin - Continue statin - COPD (Follows with [facility]) - Recent exacerbation - on 2L baseline, currently requiring more - continue incruse ellipta (LAMA) - DuoNebs PRN Pulmonary Fibrosis (diagnosed 3 months ago) - on sildenafil 20 - As above for COPD treatment PRN Urinary incontinence - [place] previous - Not currently taking reductase inhibitors/alpha blockers - Bladder scan for post void residual Hypertension - Hold home medication if normotensive T2DM - Monitor blood sugar - ISS as needed, adjust with exercise Hx of sleep apnea - Does not tolerate CPAP, uses 2L O2 NC at night - Baseline 2L Hematuria on 08/24/2022 -Hold anticoagulation and check urine UTI Pseudomonas Plan: Consult Cardiology Home meds O2 Monitor closely 08/22/2022: Patient doing well 08/23/2022: Eliquis 08/24/2022: Hold anticoagulation Check UA 08/25/2022: Change abx to Cipro and await UCx 08/26/2022: F/U on UCx Monitor closely (1) COPD exacerbation DAYANA GABRIEL DO Aug 26, 2022 07:01
[2022-08-26] MEDS: UMECLIDINIUM BROMIDE (INCRUSE ELLIPTA) 7'S IH SCH (07:37)
[2022-08-26 07:55] VITALS: BP 109/72
[2022-08-26] MEDS: meTOprolol TARTRATE 50 MG (LOPRESSOR) TAB PO SCH ×3 (08:06→21:22)
[2022-08-26] MEDS: CIPROFLOXACIN 500 MG (CIPRO) TABLET PO SCH ×2 (08:06→21:21)
[2022-08-26] MEDS: SILDENAFIL 20 MG (REVATIO) TAB PO SCH (08:06)
[2022-08-26] MEDS: PANTOPRAZOLE 40 MG (PROTONIX) TAB PO SCH (08:06)
[2022-08-26] MEDS: predniSONE 10 MG TAB PO SCH (08:06)
[2022-08-26] MEDS: ASPIRIN 81 MG CHEW (CHILDREN'S ASA) PO SCH (08:06)
[2022-08-26] MEDS: SENNA W/DOCUSATE (SENOKOT S) TABLET PO SCH ×2 (08:07→21:15)
[2022-08-26] MEDS: DOCUSATE SODIUM 100 MG (COLACE) CAP PO SCH ×4 (08:07→21:15)
[2022-08-26] MEDS: polyethylene glycoL POWDER 17 GM (MIRALAX) PACK PO SCH ×2 (08:07→21:15)
[2022-08-26 08:08] VITALS: BP 108/68
--- NOTE | 2022-08-26 09:24 | Occupational Ther Daily Note ---
OT Current Status-Daily Note Subjective Pt in therapy gym following PT tx, agreeable to OT Tx. Mental Status/Objective Attachments: Oxygen (5-6L) ADL-Treatment Therapy Code Descriptions/Definitions Functional [place] Measure: 0=Not Assessed/NA 4=Minimal Assistance 1=Total Assistance 5=Supervision or Setup 2=Maximal Assistance 6=Modified [place] 3=Moderate Assistance 7=Complete IndependenceSCALE: Activities may be completed with or without assistive devices. 7-Lhdblvyscp-dscirjl completes the activity by him/herself with no assistance from a helper. 5-Set-up or Clean-up Assistance-helper sets up or cleans up; patient completes activity. [place] assists only prior to or following the activity. 4-Supervision or Touching Assistance-helper provides verbal cues and/or touching/steadying and/or contact guard assistance as patient completes activity. Assistance may be provided throughout the activity or intermittently. 3-Partial/Moderate Assistance-helper does LESS THAN HALF the effort. [place] lifts, holds or supports trunk or limbs, but provides less than half the effort. 2-Substantial/Maximal Assistance-helper does MORE THAN HALF the effort. [place] lifts or holds trunk or limbs and provides more than half the effort. 8-Sowdxttnj-ichlui does ALL the effort. Patient does none of the effort to complete the activity. Or, the assistance of 2 or more helpers is required for the patient to complete the activity. If activity was not attempted, code reason: 7-Patient Refused. 9-Not Applicable-not attempted and the patient did not perform the activity before the current illness, exacerbation or injury. 10-Not Attempted due to Environmental Limitations-(lack of equipment, weather restraints, etc.). 88-Not Attempted due to Medical Conditions or Safety Concerns. Other Treatment Pt seated in therapy gym with PT following PT tx. Pt agreeable to OT Tx. Pt on 6L NC on portable O2 tank. SBA Sit to stand transfer and transfer to chair in therapy gym. OT Tx focused on increasing BUE strength and activity tolerance. Pt required frequent and significant rest breaks throughout tx, taking several minutes at a time to feel like he has caught his breath. O2 saturation remained in min-upper 90%'s with activities in therapy gym. Pt completed arm bike, 15 Watt resistance, [id number] (9 mins total). Pt then placed 1" pegs into foam pegboard, alternating hands. Pt able to place x100 pegs, rest breaks as needed. Pt used FWW to return to his room, SBA, OT managed O2 tank. O2 saturation at 81% upon returning to recliner, taking several minutes to return into low 90%s. Pt stood at recliner to use urinal, min A required for placement. Post tx, pt in recliner, call light in reach and all needs met. O2 at 5L NC. Education OT Patient Education: Correct positioning, Energy conservation, Exercise program, Modified ADL techniques, Progress toward Goal/Update tx plan, Purpose of tx/functional activities, Rehab process Teaching Recipient: Patient Teaching Methods: Discussion Response to Teaching: Verbalize Understanding OT Short Term Goals Short Term Goals Time Frame: Sep 05, 2022 Shower/bathe self: 5 Lower body dressin OT Correction Goals Correction Goals Time Frame: Sep 19, 2022 Acute change in mental status: 0 Inattention: 0 Disorganized thinkin Altered level of consciousness: 0 Eating (QC): 6 Oral Hygiene (QC): 6 Toileting Hygiene (QC): 6 Shower/Bathe Self (QC): 6 Upper Body Dressing (QC): 6 Lower Body Dressing (QC): 6 On/Off Footwear (QC): 6 Additional Goals: 1-Demonstrate ADL Tasks, 2-Verbalize Understanding, 3- ImproveStrength/Cece 1=Demonstrate adherence to instructed precautions during ADL tasks. 2=Patient will verbalize/demonstrate understanding of assistive devices/modifications for ADL. 3=Patient will improve strength/tolerance for activity to enable patient to perform ADL's. OT Education/Plan Problem List/Assessment Assessment: Decreased Activ Tolerance, Decreased UE Strength, Impaired Funct Balance Discharge Recommendations Plan/Recommendations: Continue POC Barriers to Progress Pt's decreased activity tolerance and pulmonary function require pt to take frequent and significant rest breaks throughout tx, limiting pt's progress. Treatment Plan/Plan of Care Patient would benefit from OT for education, treatment and training to promote independence in ADL's, mobility, safety and/or upper extremity function for ADL's. Plan of Care: ADL Retraining, Functional Mobility, Group Exercise/Act as Ind, UE Funct Exercise/Act Treatment Duration: Sep 19, 2022 Frequency: Modified Program (IRF) (14/02) Estimated Hrs Per Day: 1.5 hours per day (1-1.5 hours per day) Agreement: Yes Rehab Potential: Fair Time Start Time: 09:00 Stop Time: 10:00 DATE: Aug 26, 2022 Total Time Billed (hr/min): 60 Billed Treatment Time 1, EX (20'), FA 3 (40') LEONEL CARVALHO OT Aug 26, 2022 09:24
--- NOTE | 2022-08-26 10:20 | Progress Note - Cardiology ---
Cardiology SOAP Progress Note Objective: I&O/Vital Signs 08/26/22 08/26/22 08/27/22 08/27/22 21:02 21:15 01:00 07:39 Temp 36.8 Pulse 81 91 Resp 28 B/P (MAP) 113/81 (92) Pulse Ox 94 O2 Delivery Nasal Cannula Nasal Cannula Nasal Cannula O2 Flow Rate 5.00 5.00 5.00 08/27/22 00:00 Intake Total 1280 ml Balance 1280 ml Constitutional: AAO x 3, well-developed, well-nourished Respiratory: No accessory muscle use, No respiratory distress; chest expansion is symmetric, chest is bilaterally symmetric, other (diminished throughout) Cardiovascular: regular rate-rhythm; No JVD; S1 and S2 Gastrointestional: No tender; soft; No guarding, No rebound; audible bowel sounds Extremities: no lower extremity edema bilateral Neurologic/Psychiatric: other (moves all limbs) Skin: No rash on exposed areas, No ulcerations on exposed areas Results/Procedures: Labs Microbiology 08/24/22 Urine Culture - Preliminary, Resulted Pseudomonas aeruginosa Pseudomonas aeruginosa#2 A/P: Assessment: Recent hospitalization at [facility] in [place], [place] d/t resp failure d/t pneumonia and Influenza A on 07-21-22 - transferred to [facility] in [place], [place] on 07-31-22 SSS. PAF with controlled vent response seen on tele of 08/23/22 (CHADSVASc score 6) - s/p pacemaker in 2019, followed by Dr Carpenter at [facility] - had been on apixaban for stroke prophylaxis since 08/23/22 - stopped (by medical services) d/t episode of hematuria UTI - management per medical services HTN HLD Pulmonary HTN - on sildenafil and chronic oxygen at home (prior to admission) - followed by Dr. Kaur of pulmonary services in [place], [place] CARLA DM 2 H/o previous CVA - 2016 - treated at [place] - per pt source undetermined - no residual COPD H/o tobaccoism - quit 30 yrs ago Plan: * Plavix was stopped after starting Eliquis (to reduce risk fo bleeding) * Eliquis stopped per medical services d/t episode of hematuria - advise urology consult to determine cause of hematuria so that OAC can be resumed to reduce his risk of blood clot stroke d/t PAF * continue ASA * labs reviewed, continue to monitor labs * UTI - management per medical services EMETERIO HUYNH Aug 26, 2022 10:20
[2022-08-26 10:53] VITALS: BP 108/66
--- NOTE | 2022-08-26 12:21 | Physical Therapy Daily Note ---
PT Daily Note-Current Subjective Pt sitting in recliner upon arrival. Pt agrees to PT. Pain Location: No Pain Reported Section J - Health Conditions 1. Rarely or not at all 2. Occasionally 3. Frequently 4. Almost constantly 8. Unable to answer Pain Effect on Sleep: 2 Pain Interference with Therapy: 2 Pain Interference w/Day-to-Day: 2 Mental Status Patient Orientation: Person, Place, Time, Situation Attachments: Oxygen (5L in room & 6L during tx), Other-See Comments (Telemetry) Transfers SCALE: Activities may be completed with or without assistive devices. 0-Mfvqrccrjk-ufnrghx completes the activity by him/herself with no assistance from a helper. 5-Set-up or Clean-up Assistance-helper sets up or cleans up; patient completes activity. [place] assists only prior to or following the activity. 4-Supervision or Touching Assistance-helper provides verbal cues and/or touching/steadying and/or contact guard assistance as patient completes activity. Assistance may be provided throughout the activity or intermittently. 3-Partial/Moderate Assistance-helper does LESS THAN HALF the effort. [place] lifts, holds or supports trunk or limbs, but provides less than half the effort. 2-Substantial/Maximal Assistance-helper does MORE THAN HALF the effort. [place] lifts or holds trunk or limbs and provides more than half the effort. 5-Yvmnqdalb-wvrwsa does ALL the effort. Patient does none of the effort to complete the activity. Or, the assistance of 2 or more helpers is required for the patient to complete the activity. If activity was not attempted, code reason: 7-Patient Refused. 9-Not Applicable-not attempted and the patient did not perform the activity be fore the current illness, exacerbation or injury. 10-Not Attempted due to Environmental Limitations-(lack of equipment, weather restraints, etc.). 88-Not Attempted due to Medical Conditions or Safety Concerns. Sit to Stand (QC): 5 Toilet Transfer (QC): 5 Weight Bearing Full Weight Bearing Full Weight Bearing Gait Training Does the Patient Walk?: Yes Distance: 150' Walk 10 feet (QC): 5 Walk 50 ft with 2 Turns(QC): 5 Walk 150 ft (QC): 5 Gait Assistive Device: FWW Pt fatigues easily. Wheelchair Training Does the Pt Use a Wheelchair?: Yes Type of Wheelchair: Manual Exercises Seated Therapy Exercises: Ankle pumps, Long arc quads, Hip flexion, Hip abd/add, Glut set Seated Reps: 15 NuStep Minutes: 10 NuStep Workload: 4 Treatments TF to standing and uses BR. Pt gets fatigued from bending over to change brief. O2 is 76% after returning to recliner to rest. After short RB, Pt amb. in h allway to Therapy Gym. Pt uses NuStep then takes short RB. Pt completes Seated EX before OT takes over tx. All needs met. Assessment Current Status: Good Progress Vitals taken to start tx. BP is 108/68, P is 107 & O2 is 96%. After toileting and changing brief, O2 drops to 76% and P is 123. Pt needs RB to recover. O2 remained on 6L during tx and no other extended RB were needed. PT Short Term Goals Short Term Goals Time Frame: Aug 28, 2022 Sit to stand: 4 Chair/bes-jm-fuhno transfer: 4 Walk 10 feet: 4 Walk 50 feet with two turns: 4 Walk 150 feet: 4 PT Long-Term Goals Long-Term Goals PT Pit Laborer Goals Time Frame: Sep 04, 2022 Roll Left & Right (QC): 6 Sit to Lying (QC): 6 Lying-Sitting on Side/Bed(QC): 6 Sit to Stand (QC): 6 Chair/Jga-oi-Bnmtn Xfer(QC): 6 Toilet Transfer (QC): 6 Car Transfer (QC): 6 Does the Patient Walk: Yes Walk 10 feet (QC): 6 Walk 50ft with 2 Turns (QC): 6 Walk 150 ft (QC): 6 Walking 10ft on Uneven Surface: 6 1 Step (curb) (QC): 4 (SBA) 4 Steps (QC): 4 (SBA) 12 Steps (QC): 88 Picking up an Object (QC): 6 Wheel 50 feet with 2 turns (QC: 9 Wheel 150 feet: 9 PT Plan Problem List Problem List: Activity Tolerance Treatment/Plan Treatment Plan: Continue Plan of Care Treatment Plan: Bed Mobility, Education, Functional Activity Cece, Functional Strength, Group Therapy, Gait, Safety, Therapeutic Exercise, Transfers Treatment Duration: Sep 04, 2022 Frequency: At least 5 of 7 days/Wk (IRF) Estimated Hrs Per Day: 1.5 hours per day Patient and/or Family Agrees t: Yes Time Time In: 800 Time Out: 900 DATE: Aug 26, 2022 Total Billed Treatment Time: 60 Total Billed Treatment 1, FA (15m), EX x2 (30m) & GT (15m) MANNY NÚÑEZ MILL TURNER Aug 26, 2022 12:21
--- NOTE | 2022-08-26 13:52 | Occupational Ther Daily Note ---
OT Current Status-Daily Note Subjective Up in recliner watching tv Pain Numeric Pain Scale: 0-No Pain Appearance Wearing hospital gown and slipper socks, declines changing garments Mental Status/Objective Patient Orientation: Person, Place, Time, Situation (Patient reports to OT SNEHA JURADO for 08/31/22) Attachments: Oxygen ADL-Treatment Therapy Code Descriptions/Definitions Functional [place] Measure: 0=Not Assessed/NA 4=Minimal Assistance 1=Total Assistance 5=Supervision or Setup 2=Maximal Assistance 6=Modified [place] 3=Moderate Assistance 7=Complete IndependenceSCALE: Activities may be completed with or without assistive devices. 2-Bbhgqasrln-uwxlzkb completes the activity by him/herself with no assistance from a helper. 5-Set-up or Clean-up Assistance-helper sets up or cleans up; patient completes activity. [place] assists only prior to or following the activity. 4-Supervision or Touching Assistance-helper provides verbal cues and/or touching/steadying and/or contact guard assistance as patient completes activity. Assistance may be provided throughout the activity or intermittently. 3-Partial/Moderate Assistance-helper does LESS THAN HALF the effort. [place] lifts, holds or supports trunk or limbs, but provides less than half the effort. 2-Substantial/Maximal Assistance-helper does MORE THAN HALF the effort. [place] lifts or holds trunk or limbs and provides more than half the effort. 3-Vioxkwvgt-qfsius does ALL the effort. Patient does none of the effort to complete the activity. Or, the assistance of 2 or more helpers is required for the patient to complete the activity. If activity was not attempted, code reason: 7-Patient Refused. 9-Not Applicable-not attempted and the patient did not perform the activity before the current illness, exacerbation or injury. 10-Not Attempted due to Environmental Limitations-(lack of equipment, weather restraints, etc.). 88-Not Attempted due to Medical Conditions or Safety Concerns. Other Treatment Red therapy band BUE exercises, shoulder/elbow flexion/ext, horz abduction 10x2 w/ 75% VCs and count down for PLB 02 82-92 with performance in sitting and 02 at 5 liters NC continuous. Requires 10-30 second rest periods between 3-5 rep intervals Education OT Patient Education: Energy conservation, Exercise program, Home exercise program, Progress toward Goal/Update tx plan, Purpose of tx/functional activities, Reviewed precautions, Rehab process Teaching Recipient: Patient Teaching Methods: Demonstration, Discussion Response to Teaching: Verbalize Understanding, Return Demonstration, Reinforcement Needed OT Short Term Goals Short Term Goals Time Frame: Sep 05, 2022 Shower/bathe self: 5 Lower body dressin OT Eyeglass Assembler Goals Eyeglass Assembler Goals Time Frame: Sep 19, 2022 Acute change in mental status: 0 Inattention: 0 Disorganized thinkin Altered level of consciousness: 0 Eating (QC): 6 Oral Hygiene (QC): 6 Toileting Hygiene (QC): 6 Shower/Bathe Self (QC): 6 Upper Body Dressing (QC): 6 Lower Body Dressing (QC): 6 On/Off Footwear (QC): 6 Additional Goals: 1-Demonstrate ADL Tasks, 2-Verbalize Understanding, 3- ImproveStrength/Cece 1=Demonstrate adherence to instructed precautions during ADL tasks. 2=Patient will verbalize/demonstrate understanding of assistive devices/modifications for ADL. 3=Patient will improve strength/tolerance for activity to enable patient to perform ADL's. OT Education/Plan Problem List/Assessment Assessment: Decreased Activ Tolerance, Decreased UE Strength, Impaired Coordin ation, Impaired Funct Balance, Impaired Self-Care Skills, Restricted Funct UE ROM Discharge Recommendations Plan/Recommendations: Continue POC Therapy Discharge Recommendati: Post Acute OT Treatment Plan/Plan of Care Patient would benefit from OT for education, treatment and training to promote independence in ADL's, mobility, safety and/or upper extremity function for ADL's. Plan of Care: ADL Retraining, Functional Mobility, Group Exercise/Act as Ind, UE Funct Exercise/Act Treatment Duration: Sep 19, 2022 Frequency: Modified Program (IRF) (14/02) Estimated Hrs Per Day: 1.5 hours per day (1-1.5 hours per day) Agreement: Yes Rehab Potential: Fair Time Start Time: 13:03 Stop Time: 13:33 DATE: Aug 26, 2022 Total Time Billed (hr/min): 30 Billed Treatment Time 1 V EX 2 33min IRWIN SPEAR OT Aug 26, 2022 13:52
[2022-08-26 14:34] VITALS: BP 119/66
--- NOTE | 2022-08-26 15:42 | Physical Therapy Daily Note ---
PT Daily Note-Current Subjective Pt sitting in recliner upon arrival. Pt agrees to PT but asks to use BR for BM to start. Pain Location: No Pain Reported Section J - Health Conditions 1. Rarely or not at all 2. Occasionally 3. Frequently 4. Almost constantly 8. Unable to answer Pain Effect on Sleep: 2 Pain Interference with Therapy: 2 Pain Interference w/Day-to-Day: 2 Mental Status Patient Orientation: Person, Place, Situation Attachments: Oxygen (5L in room ) Transfers SCALE: Activities may be completed with or without assistive devices. 8-Oabishmxiu-zdzzwkl completes the activity by him/herself with no assistance from a helper. 5-Set-up or Clean-up Assistance-helper sets up or cleans up; patient completes activity. [place] assists only prior to or following the activity. 4-Supervision or Touching Assistance-helper provides verbal cues and/or touching/steadying and/or contact guard assistance as patient completes activity. Assistance may be provided throughout the activity or intermittently. 3-Partial/Moderate Assistance-helper does LESS THAN HALF the effort. [place] lifts, holds or supports trunk or limbs, but provides less than half the effort. 2-Substantial/Maximal Assistance-helper does MORE THAN HALF the effort. [place] lifts or holds trunk or limbs and provides more than half the effort. 6-Btnkqaxlm-lnaioc does ALL the effort. Patient does none of the effort to complete the activity. Or, the assistance of 2 or more helpers is required for the patient to complete the activity. If activity was not attempted, code reason: 7-Patient Refused. 9-Not Applicable-not attempted and the patient did not perform the activity before the current illness, exacerbation or injury. 10-Not Attempted due to Environmental Limitations-(lack of equipment, weather restraints, etc.). 88-Not Attempted due to Medical Conditions or Safety Concerns. Sit to Stand (QC): 5 Toilet Transfer (QC): 5 Weight Bearing Full Weight Bearing Full Weight Bearing Gait Training Does the Patient Walk?: Yes Distance: 15' x2 Walk 10 feet (QC): 5 Gait Assistive Device: FWW Wheelchair Training Does the Pt Use a Wheelchair?: Yes Type of Wheelchair: Manual Treatments TF to standing and amb. to BR. After toileting complete, pt stands and attempts pericare. Pt fatigues and sit back down. DELIVERY ASSISTANT finishes pericare. Nurse is no tified that sacral dressing is soiled and cleans and applies new dressing while pt stands again. Pt is able to wash hands and returns to recliner at end of tx. All needs met, call light in hand. Assessment Current Status: Good Progress Pt fatigues easily and needs frequent RB. PT Short Term Goals Short Term Goals Time Frame: Aug 28, 2022 Sit to stand: 4 Chair/ifn-iy-nkrmv transfer: 4 Walk 10 feet: 4 Walk 50 feet with two turns: 4 Walk 150 feet: 4 PT Conduit Mechanic Goals Usp Goals PT Conduit Mechanic Goals Time Frame: Sep 04, 2022 Roll Left & Right (QC): 6 Sit to Lying (QC): 6 Lying-Sitting on Side/Bed(QC): 6 Sit to Stand (QC): 6 Chair/Uix-fg-Vhwvt Xfer(QC): 6 Toilet Transfer (QC): 6 Car Transfer (QC): 6 Does the Patient Walk: Yes Walk 10 feet (QC): 6 Walk 50ft with 2 Turns (QC): 6 Walk 150 ft (QC): 6 Walking 10ft on Uneven Surface: 6 1 Step (curb) (QC): 4 (SBA) 4 Steps (QC): 4 (SBA) 12 Steps (QC): 88 Picking up an Object (QC): 6 Wheel 50 feet with 2 turns (QC: 9 Wheel 150 feet: 9 PT Plan Problem List Problem List: Activity Tolerance Treatment/Plan Treatment Plan: Continue Plan of Care Treatment Plan: Bed Mobility, Education, Functional Activity Cece, Functional Strength, Group Therapy, Gait, Safety, Therapeutic Exercise, Transfers Treatment Duration: Sep 04, 2022 Frequency: At least 5 of 7 days/Wk (IRF) Estimated Hrs Per Day: 1.5 hours per day Patient and/or Family Agrees t: Yes Time Time In: 1330 Time Out: 1400 DATE: Aug 26, 2022 Total Billed Treatment Time: 30 Total Billed Treatment 1, FA x2 (30m) MANNY NÚÑEZ DELIVERY ASSISTANT Aug 26, 2022 15:41
--- NOTE | 2022-08-26 18:23 | Progress Note - Cardiology ---
Cardiology SOAP Progress Note Subjective: Gen weakness, gradually improving No n/v/d No cp or palp or syncope No shortness of breath at rest Objective: I&O/Vital Signs 08/26/22 08/26/22 08/26/22 08/26/22 07:02 07:37 07:55 08:08 Temp 36.1 36.3 Pulse 92 104 85 Resp B/P (MAP) 109/72 (84) 108/68 (81) Pulse Ox 97 97 97 O2 Delivery Nasal Cannula Nasal Cannula Nasal Cannula O2 Flow Rate 5.00 5.00 5.00 08/26/22 08/26/22 08/26/22 08/26/22 08:24 10:44 10:53 13:10 Temp 36.4 Pulse 94 86 87 Resp B/P (MAP) 108/66 (80) Pulse Ox 94 97 O2 Delivery Nasal Cannula Nasal Cannula Nasal Cannula O2 Flow Rate 5.00 5.00 5.00 08/26/22 14:34 Pulse 92 B/P (MAP) 119/66 (83) Pulse Ox 96 O2 Delivery Nasal Cannula O2 Flow Rate 5.00 08/26/22 00:00 Intake Total 1080 ml Output Total 200 ml Balance 880 ml Constitutional: AAO x 3, well-developed, well-nourished Respiratory: No accessory muscle use, No respiratory distress; chest expansion is symmetric, chest is bilaterally symmetric, other (diminished throughout) Cardiovascular: regular rate-rhythm; No JVD; S1 and S2 Gastrointestional: No tender; soft; No guarding, No rebound; audible bowel sounds Extremities: no lower extremity edema bilateral Neurologic/Psychiatric: other (moves all limbs) Skin: No rash on exposed areas, No ulcerations on exposed areas Results/Procedures: Labs Microbiology 08/24/22 Urine Culture - Preliminary, Resulted Pseudomonas aeruginosa Pseudomonas aeruginosa#2 Laboratory Tests 08/25/22 05:35 A/P: Assessment: Recent hospitalization at [facility] in [place], [place] d/t resp failure d/t pneumonia and Influenza A on 07-21-22 - transferred to [facility] in [place], [place] on 07-31-22 SSS. PAF with controlled vent response seen on tele of 08/23/22 (CHADSVASc score 6) - s/p pacemaker in 2019, followed by Dr Carpenter at [facility] - had been on apixaban for stroke prophylaxis since 08/23/22 - stopped (by medical services) d/t episode of hematuria UTI - management per medical services HTN HLD Pulmonary HTN - on sildenafil and chronic oxygen at home (prior to admission) - followed by Dr. Kaur of pulmonary services in [place], [place] CARLA DM 2 H/o previous CVA - Alexa2016 - treated at [place] - per pt source undetermined - no residual COPD H/o tobaccoism - quit 30 yrs ago Plan: * Complex management of OAC and antiplatelet agents as described below * Plavix was stopped after starting Eliquis (to reduce risk fo bleeding) * Eliquis stopped per medical services d/t episode of hematuria - advise urology consult to determine cause of hematuria so that OAC can be resumed to reduce his risk of blood clot stroke d/t PAF * continue ASA * labs reviewed, continue to monitor labs * UTI - management per medical services EDUARDO LANE MD FACP FAC CCDS Aug 26, 2022 18:23
[2022-08-26 19:46] VITALS: BP 122/66
[2022-08-26] MEDS: eZETimibe 10 MG (ZETIA) TABLET PO SCH (21:22)
[2022-08-27] MEDS: MULTIVIT W/MINERALS TAB (THERAGRAN M) PO SCH (06:02)
--- NOTE | 2022-08-27 06:28 | PM&R Progress Note ---
Subjective HPI/CC On Admission Date Seen by Provider: Aug 27, 2022 Time Seen by Provider: 08:30 Subjective/Events-last exam 08/27/2022: Patient doing well Will extend stay by 2 days if ok with the patient in case he can improve Desat occurs with activity 08/26/2022: Improved status Cipro maintained for UTI No pain reported O2 sat stable 08/25/2022: Hematuria improved No pain reported Holding OAC UTI being treated with Cipro until final Cx since it appears to be Pseudomonas. No h/o UTI per patient 08/24/2022: Patient doing pretty well Moving around pretty well Hematuria noted so we will hold Eliquis Hematuria is likely why he was not on anticoagulation to begin with with a history of chronic A. fib 08/23/2022: Improved status Onset AF on Tely so Eliquis started by Cardiology Monitoring closely 08/22/2022: Patient doing well Walking well with therapy Still very weak Maintained on oxygen Desaturation noted with activity Review of Systems General: Fatigue, Malaise Objective Exam Vital Signs Vital Signs Date Time Temp Pulse Resp B/P (MAP) Pulse Ox O2 Delivery O2 Flow Rate FiO2 08/27/22 12:58 84 08/27/22 09:00 94 Nasal Cannula 5.00 08/27/22 07:39 36.8 28 113/81 (92) Capillary Refill : General Appearance: No Apparent Distress, WD/WN, Chronically ill, Obese HEENT: PERRL/EOMI, Normal ENT Inspection, Pharynx Normal Neck: Full Range of Motion, Normal Inspection, Non Tender, Supple, Carotid Bruit Respiratory: Chest Non Tender, Lungs Clear, Normal Breath Sounds, No Accessory Muscle Use, No Respiratory Distress Cardiovascular: Regular Rate, Rhythm, No Edema, No Gallop, No JVD, Normal Per ipheral Pulses, Systolic Murmur Gastrointestinal: Normal Bowel Sounds, No Organomegaly, No Pulsatile Mass, Non Tender, Soft Back: Normal Inspection, No CVA Tenderness, No Vertebral Tenderness Extremity: Normal Capillary Refill, Normal Inspection, Normal Range of Motion, Non Tender, No Calf Tenderness, No Pedal Edema Neurologic/Psychiatric: Alert, Oriented x3, fighting vehicle infantryman II-XII Norm as Tested, Abnormal Gait, Depressed Affect, Motor Weakness (generalized weakness) Skin: Normal Color, Warm/Dry Lymphatic: No Adenopathy Results/Procedures Lab Patient resulted labs reviewed. FIM Transfers Therapy Code Descriptions/Definitions Functional [place] Measure: 0=Not Assessed/NA 4=Minimal Assistance 1=Total Assistance 5=Supervision or Setup 2=Maximal Assistance 6=Modified [place] 3=Moderate Assistance 7=Complete IndependenceSCALE: Activities may be completed with or without assistive devices. 2-Mmphyeysnw-fvsqkoj completes the activity by him/herself with no assistance from a helper. 5-Set-up or Clean-up Assistance-helper sets up or cleans up; patient completes activity. [place] assists only prior to or following the activity. 4-Supervision or Touching Assistance-helper provides verbal cues and/or touching/steadying and/or contact guard assistance as patient completes activity. Assistance may be provided throughout the activity or intermittently. 3-Partial/Moderate Assistance-helper does LESS THAN HALF the effort. [place] lifts, holds or supports trunk or limbs, but provides less than half the effort. 2-Substantial/Maximal Assistance-helper does MORE THAN HALF the effort. [place] lifts or holds trunk or limbs and provides more than half the effort. 3-Innlymxco-bsfqpk does ALL the effort. Patient does none of the effort to complete the activity. Or, the assistance of 2 or more helpers is required for the patient to complete the activity. If activity was not attempted, code reason: 7-Patient Refused. 9-Not Applicable-not attempted and the patient did not perform the activity before the current illness, exacerbation or injury. 10-Not Attempted due to Environmental Limitations-(lack of equipment, weather restraints, etc.). 88-Not Attempted due to Medical Conditions or Safety Concerns. Roll Left to Right (QC): 4 Sit to Lying (QC): 4 Sit to Stand (QC): 5 Chair/Gyv-nh-Rglce Xfer(QC): 4 Car Transfer (QC): 4 Gait Training Does the Patient Walk?: Yes Distance: 15' x2 Walk 10 feet (QC): 5 Walk 50 ft with 2 Turns(QC): 5 Walk 150 ft (QC): 5 Walking 10ft/uneven surface-QC: 4 Gait Persons Needed: 1 Gait Assistive Device: FWW Wheelchair Training Does the Pt Use a Wheelchair?: Yes Distance: 150' Wheel 50 ft with 2 turns (QC): 3 Wheel 150 ft (QC): 3 Type of Wheelchair: Manual Stair Training #of Steps: 1 1 Step (curb) (QC): 4 4 Steps (QC): 88 12 Steps (QC): 88 Balance Picking up an Object (QC): 4 (CGA using a plasma processor) ADL-Treatment Eating (QC): 6 Oral Hygiene (QC): 5 Shower/Bathe Self (QC): 4 (CGA sponge bath.) Upper Body Dressing (QC): 5 Lower Body Dressing (QC): 4 (CGA) On/Off Footwear (QC): 5 Toileting Hygiene (QC): 3 (Min A with pant hike in back.) Toilet Transfer (QC): 4 (SBA on/off BSC over toilet.) Assessment/Plan Assessment and Plan Assess & Plan/Chief Complaint Assessment/Plan: Debility due to illness - Inpatient rehab - PT/OT eval and treat Atrial fibrillation (Follows with Dr. Carpenter) - AV block s/p pacemaker placement; rate and rhythm controlled. 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) - Still has position deficits in leg, motor and strength almost back to normal - On clopidegril and baby aspirin - Continue statin - COPD (Follows with [facility]) - Recent exacerbation - on 2L baseline, currently requiring more - continue incruse ellipta (LAMA) - DuoNebs PRN Pulmonary Fibrosis (diagnosed 3 months ago) - on sildenafil 20 - As above for COPD treatment PRN Urinary incontinence - [place] previous - Not currently taking reductase inhibitors/alpha blockers - Bladder scan for post void residual Hypertension - Hold home medication if normotensive T2DM - Monitor blood sugar - ISS as needed, adjust with exercise Hx of sleep apnea - Does not tolerate CPAP, uses 2L O2 NC at night - Baseline 2L Hematuria on 08/24/2022 -Hold anticoagulation and check urine UTI Pseudomonas Plan: Consult Cardiology Home meds O2 Monitor closely 08/22/2022: Patient doing well 08/23/2022: Eliquis 08/24/2022: Hold anticoagulation Check UA 08/25/2022: Change abx to Cipro and await UCx 08/26/2022: F/U on UCx Monitor closely 08/27/2022: Complete abx Hold OAC until UTI treated (1) COPD exacerbation DAYANA GABRIEL DO Aug 27, 2022 06:28
[2022-08-27] MEDS: UMECLIDINIUM BROMIDE (INCRUSE ELLIPTA) 7'S IH SCH (07:00)
[2022-08-27 07:39] VITALS: BP 113/81
[2022-08-27] MEDS: ASPIRIN 81 MG CHEW (CHILDREN'S ASA) PO SCH (09:19)
[2022-08-27] MEDS: predniSONE 10 MG TAB PO SCH (09:19)
[2022-08-27] MEDS: CIPROFLOXACIN 500 MG (CIPRO) TABLET PO SCH ×2 (09:19→20:00)
[2022-08-27] MEDS: SILDENAFIL 20 MG (REVATIO) TAB PO SCH (09:20)
[2022-08-27] MEDS: SENNA W/DOCUSATE (SENOKOT S) TABLET PO SCH ×2 (09:20→20:00)
[2022-08-27] MEDS: DOCUSATE SODIUM 100 MG (COLACE) CAP PO SCH ×4 (09:21→20:01)
[2022-08-27] MEDS: polyethylene glycoL POWDER 17 GM (MIRALAX) PACK PO SCH ×2 (09:22→20:01)
[2022-08-27] MEDS: PANTOPRAZOLE 40 MG (PROTONIX) TAB PO SCH (09:22)
[2022-08-27] MEDS: meTOprolol TARTRATE 50 MG (LOPRESSOR) TAB PO SCH ×3 (09:22→20:01)
--- NOTE | 2022-08-27 09:38 | Physical Therapy Daily Note ---
PT Daily Note-Current Subjective Pt sitting in recliner upon arrival. Pt agrees to PT. Pain Location: No Pain Reported Section J - Health Conditions 1. Rarely or not at all 2. Occasionally 3. Frequently 4. Almost constantly 8. Unable to answer Pain Effect on Sleep: 2 Pain Interference with Therapy: 2 Pain Interference w/Day-to-Day: 2 Mental Status Patient Orientation: Person, Place, Situation Attachments: Other-See Comments (Telemetry) Transfers SCALE: Activities may be completed with or without assistive devices. 7-Zlepwizowr-ylkoans completes the activity by him/herself with no assistance from a helper. 5-Set-up or Clean-up Assistance-helper sets up or cleans up; patient completes activity. [place] assists only prior to or following the activity. 4-Supervision or Touching Assistance-helper provides verbal cues and/or touching/steadying and/or contact guard assistance as patient completes activi ty. Assistance may be provided throughout the activity or intermittently. 3-Partial/Moderate Assistance-helper does LESS THAN HALF the effort. [place] lifts, holds or supports trunk or limbs, but provides less than half the effort. 2-Substantial/Maximal Assistance-helper does MORE THAN HALF the effort. [place] lifts or holds trunk or limbs and provides more than half the effort. 3-Lskwtperf-xeysgj does ALL the effort. Patient does none of the effort to complete the activity. Or, the assistance of 2 or more helpers is required for the patient to complete the activity. If activity was not attempted, code reason: 7-Patient Refused. 9-Not Applicable-not attempted and the patient did not perform the activity before the current illness, exacerbation or injury. 10-Not Attempted due to Environmental Limitations-(lack of equipment, weather restraints, etc.). 88-Not Attempted due to Medical Conditions or Safety Concerns. Sit to Stand (QC): 5 Toilet Transfer (QC): 5 Weight Bearing Full Weight Bearing Full Weight Bearing Gait Training Does the Patient Walk?: Yes Distance: 150', 250' Walk 10 feet (QC): 5 Walk 50 ft with 2 Turns(QC): 5 Walk 150 ft (QC): 4 Gait Assistive Device: FWW Pt needs RB due to fatigue. Exercises Seated Therapy Exercises: Ankle pumps, Long arc quads, Hip flexion, Glut set Seated Reps: 10 Standing: Hamstring curls, Marching, Mini squats, Weight shifts Standing Reps: 15 NuStep Minutes: 12 NuStep Workload: 4 Treatments TF to standing and amb. to BR where pt completes pericare after BM. Pt amb. in hallway then uses NuStep followed by short RB. Pt completes Standing Ex at //bars, several RB needed for fatigue. Pt completes Seated EX and before amb. in hallway this time a more extended route. Pt returns to room to rest in recliner. Pt has all needs met,call light in hand. Assessment Current Status: Good Progress O2 is monitored during tx for fatigue. O2 starts at 95%, P is 121 after & O2 is still 95% after use of NuStep. After extended walk, O2 falls to 89% but after few deep breaths O2 jumps back above 90%. PT Short Term Goals Short Term Goals Time Frame: Aug 28, 2022 Sit to stand: 4 Chair/fkd-nn-gxfqe transfer: 4 Walk 10 feet: 4 Walk 50 feet with two turns: 4 Walk 150 feet: 4 PT Detention Goals Detention Goals PT Detention Goals Time Frame: Sep 04, 2022 Roll Left & Right (QC): 6 Sit to Lying (QC): 6 Lying-Sitting on Side/Bed(QC): 6 Sit to Stand (QC): 6 Chair/Jyj-ud-Irtic Xfer(QC): 6 Toilet Transfer (QC): 6 Car Transfer (QC): 6 Does the Patient Walk: Yes Walk 10 feet (QC): 6 Walk 50ft with 2 Turns (QC): 6 Walk 150 ft (QC): 6 Walking 10ft on Uneven Surface: 6 1 Step (curb) (QC): 4 (SBA) 4 Steps (QC): 4 (SBA) 12 Steps (QC): 88 Picking up an Object (QC): 6 Wheel 50 feet with 2 turns (QC: 9 Wheel 150 feet: 9 PT Plan Problem List Problem List: Activity Tolerance Treatment/Plan Treatment Plan: Continue Plan of Care Treatment Plan: Bed Mobility, Education, Functional Activity Cece, Functional Strength, Group Therapy, Gait, Safety, Therapeutic Exercise, Transfers Treatment Duration: Sep 04, 2022 Frequency: At least 5 of 7 days/Wk (IRF) Estimated Hrs Per Day: 1.5 hours per day Patient and/or Family Agrees t: Yes Safety Risks/Education Patient Education: Safety Issues Teaching Recipient: Patient Teaching Methods: Discussion Response to Teaching: Verbalize Understanding Time Time In: 800 Time Out: 930 DATE: Aug 27, 2022 Total Billed Treatment Time: 90 Total Billed Treatment 1, GT x2 (30m), EX x2 (30m) & FA x2 (30m) MANNY NÚÑEZ PTA Aug 27, 2022 09:38
--- NOTE | 2022-08-27 10:10 | Progress Note - Cardiology ---
Cardiology SOAP Progress Note Subjective: Sitting up in recliner at the bedside States he feels his SOB is better today No c/o CP, palpitations No further blood in urine per pt report Objective: I&O/Vital Signs 08/28/22 08/28/22 08/28/22 08/28/22 00:47 07:00 07:51 09:21 Temp 36.1 36.4 Pulse 83 124 132 117 Resp 30 18 B/P (MAP) 106/63 (77) 104/76 (85) Pulse Ox 92 O2 Delivery Nasal Cannula Nasal Cannula O2 Flow Rate 5.00 5.00 08/28/22 09:21 Temp 36.1 Pulse 132 Resp 30 B/P (MAP) 106/63 (77) Pulse Ox 92 O2 Delivery Nasal Cannula O2 Flow Rate 5.00 5.00 08/28/22 00:00 Intake Total 1140 ml Output Total 350 ml Balance 790 ml Constitutional: AAO x 3, well-developed, well-nourished Respiratory: No accessory muscle use, No respiratory distress; chest expansion is symmetric, chest is bilaterally symmetric, other (diminished throughout) Cardiovascular: regular rate-rhythm; No JVD; S1 and S2 Gastrointestional: No tender; soft; No guarding, No rebound; audible bowel sounds Extremities: no lower extremity edema bilateral Neurologic/Psychiatric: other (moves all limbs) Skin: No rash on exposed areas, No ulcerations on exposed areas Results/Procedures: Labs Microbiology 08/24/22 Urine Culture - Final, Complete Pseudomonas aeruginosa Pseudomonas aeruginosa#2 A/P: Assessment: Recent hospitalization at [facility] in [place], [place] d/t resp failure d/t pneumonia and Influenza A on 07-21-22 - transferred to [facility] in [place], [place] on 07-31-22 SSS. PAF with controlled vent response seen on tele of 08/23/22 (CHADSVASc score 6) - s/p pacemaker in 2019, followed by Dr Carpenter at [facility] - had been on apixaban for stroke prophylaxis since 08/23/22 - stopped (by medical services) d/t episode of hematuria UTI - management per medical services HTN HLD Pulmonary HTN - on sildenafil and chronic oxygen at home (prior to admission) - followed by Dr. Kaur of pulmonary services in [place], [place] CARLA DM 2 H/o previous CVA - Alexa 2016 - treated at [place] - per pt source undetermined - no residual COPD H/o tobaccoism - quit 30 yrs ago Plan: * Complex management of OAC and antiplatelet agents as described below * Plavix was stopped after starting Eliquis (to reduce risk fo bleeding) * Eliquis stopped per medical services d/t episode of hematuria - pt denies any further episodes of hematuria - advise resumption of OAC d/t risk of stroke d/t PAF if ok with medical services * continue ASA * labs reviewed, continue to monitor labs * UTI - management per medical services EMETERIO HUYNH Aug 27, 2022 10:09
--- NOTE | 2022-08-27 11:27 | Occupational Ther Daily Note ---
OT Current Status-Daily Note Subjective Pt up in recliner, agreeable to OT Tx. Pt required some encouragement to continue with tx, as pt wanted to take significant rest breaks between every step. Pt reports fairly sedentary lifestyle at home. Mental Status/Objective Patient Orientation: Normal For Age Attachments: Oxygen (5-6L) ADL-Treatment Therapy Code Descriptions/Definitions Functional [place] Measure: 0=Not Assessed/NA 4=Minimal Assistance 1=Total Assistance 5=Supervision or Setup 2=Maximal Assistance 6=Modified [place] 3=Moderate Assistance 7=Complete IndependenceSCALE: Activities may be completed with or without assistive devices. 8-Lsvseckeas-ujmvirx completes the activity by him/herself with no assistance from a helper. 5-Set-up or Clean-up Assistance-helper sets up or cleans up; patient completes activity. [place] assists only prior to or following the activity. 4-Supervision or Touching Assistance-helper provides verbal cues and/or touching/steadying and/or contact guard assistance as patient completes activity. Assistance may be provided throughout the activity or intermittently. 3-Partial/Moderate Assistance-helper does LESS THAN HALF the effort. [place] lifts, holds or supports trunk or limbs, but provides less than half the effort. 2-Substantial/Maximal Assistance-helper does MORE THAN HALF the effort. [place] lifts or holds trunk or limbs and provides more than half the effort. 1-Rolwwawuc-klysjr does ALL the effort. Patient does none of the effort to complete the activity. Or, the assistance of 2 or more helpers is required for the patient to complete the activity. If activity was not attempted, code reason: 7-Patient Refused. 9-Not Applicable-not attempted and the patient did not perform the activity before the current illness, exacerbation or injury. 10-Not Attempted due to Environmental Limitations-(lack of equipment, weather restraints, etc.). 88-Not Attempted due to Medical Conditions or Safety Concerns. Shower/Bathe Self (QC): 4 (SBA) Upper Body Dressing (QC): 5 Lower Body Dressing (QC): 5 On/Off Footwear: 5 Toileting Hygiene (QC): 4 (SBA, VCS required for steps using urinal.) Other Treatment O2 at 5L at rest, 6L throughout tx with activity. Pt in recliner, stood at FWW to use urinal. Pt completed toileting, requiring VCs for sequencing of task. Pt sat in recliner, completing sponge bath and dressing. O2 saturation decreased to low 80%'s with bending/standing, recovering back into the low 90's after several minutes. After O2 saturation returned into 90%'s, pt still requested several more minutes of rest before completing next task. Pt used FWW to perform functional mobility to therapy gym, SBA, OT managed O2 tank. Pt took several minutes to rest, O2 saturation in mid 80%'s. Pt then completed arm bike 2x5 mins (10 mins total) 97% O2 saturation after 5 mins of activity. Pt returned to room using FWW, transferring to recliner. Post tx, pt in recliner, call light in reach and all needs met. 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 2=Patient will verbalize/demonstrate understanding of assistive devices/modifications for ADL. 3=Patient will improve strength/tolerance for activity to enable patient to perform ADL's. OT Education/Plan Problem List/Assessment Assessment: Decreased Activ Tolerance, Decreased UE Strength, Impaired Funct Balance, Impaired I ADL's, Impaired Self-Care Skills Discharge Recommendations Plan/Recommendations: Continue POC Treatment Plan/Plan of Care Patient would benefit from OT for education, treatment and training to promote independence in ADL's, mobility, safety and/or upper extremity function for ADL's. Plan of Care: ADL Retraining, Functional Mobility, Group Exercise/Act as Ind, UE Funct Exercise/Act Treatment Duration: Sep 19, 2022 Frequency: Modified Program (IRF) (14/02) Estimated Hrs Per Day: 1.5 hours per day (1-1.5 hours per day) Agreement: Yes Rehab Potential: Fair Time Start Time: 10:15 Stop Time: 11:45 DATE: Aug 27, 2022 Total Time Billed (hr/min): 90 Billed Treatment Time 1, ADL 5 (75'), EX (15') LEONEL CARVALHO OT Aug 27, 2022 11:27
--- NOTE | 2022-08-27 12:35 | Progress Note - Cardiology ---
Cardiology SOAP Progress Note Subjective: Gen weakness and malaise Some shortness of breath with activity No cp or palp or syncope Denies blood in urine at this time No n/v/d Objective: I&O/Vital Signs 08/27/22 08/27/22 08/27/22 08/27/22 01:00 06:52 07:39 08:36 Temp 36.8 Pulse 81 86 91 Resp 28 B/P (MAP) 113/81 (92) Pulse Ox 94 O2 Delivery Nasal Cannula Nasal Cannula O2 Flow Rate 5.00 5.00 08/27/22 09:00 Pulse Ox 94 O2 Delivery Nasal Cannula O2 Flow Rate 5.00 08/27/22 00:00 Intake Total 1280 ml Balance 1280 ml Constitutional: AAO x 3, well-developed, well-nourished Respiratory: chest expansion is symmetric, chest is bilaterally symmetric, other Cardiovascular: regular rate-rhythm, S1 and S2 Gastrointestional: soft, audible bowel sounds Extremities: no lower extremity edema bilateral Neurologic/Psychiatric: other Skin: No rash on exposed areas, No ulcerations on exposed areas Results/Procedures: Labs Microbiology 08/24/22 Urine Culture - Final, Complete Pseudomonas aeruginosa Pseudomonas aeruginosa#2 A/P: Assessment: Recent hospitalization at [facility] in [place], [place] d/t resp failure d/t pneumonia and Influenza A on 07-21-22 - transferred to [facility] in [place], [place] on 07-31-22 SSS. PAF with controlled vent response seen on tele of 08/23/22 (CHADSVASc score 6) - s/p pacemaker in 2019, followed by Dr Carpenter at [facility] - had been on apixaban for stroke prophylaxis since 08/23/22 - stopped (by medical services) d/t episode of hematuria UTI - management per medical services HTN HLD Pulmonary HTN - on sildenafil and chronic oxygen at home (prior to admission) - followed by Dr. Kaur of pulmonary services in [place], [place] CARLA DM 2 H/o previous CVA - 2016 - treated at [facility] - per pt source undetermined - no residual COPD H/o tobaccoism - quit 30 yrs ago Plan: * Complex management of OAC and antiplatelet agents as described below * Plavix was stopped after starting Eliquis (to reduce risk fo bleeding) * Eliquis stopped per medical services d/t episode of hematuria - pt denies any further episodes of hematuria - advise resumption of OAC d/t risk of stroke d/t PAF if ok with medical services * continue ASA * labs reviewed, continue to monitor labs * UTI - management per medical services EDUARDO LANE MD FACP FAC CCDS Aug 27, 2022 12:35
[2022-08-27 19:28] VITALS: BP 97/59
[2022-08-27] MEDS: eZETimibe 10 MG (ZETIA) TABLET PO SCH (20:00)
[2022-08-27] MEDS ORDERED: APIXABAN 5 MG (ELIQUIS) TABLET PO SCH (21:00)
--- NOTE | 2022-08-28 06:14 | PM&R Progress Note ---
Subjective HPI/CC On Admission Date Seen by Provider: Aug 28, 2022 Time Seen by Provider: 12:00 Subjective/Events-last exam 08/28/2022: Doing well except tachycardia of AF Dr Barnes adjusted meds No other issues DC Thursday08/27/2022: Patient doing well Will extend stay by 2 days if ok with the patient in case he can improve Desat occurs with activity 08/26/2022: Improved status Cipro maintained for UTI No pain reported O2 sat stable 08/25/2022: Hematuria improved No pain reported Holding OAC UTI being treated with Cipro until final Cx since it appears to be Pseudomonas. No h/o UTI per patient 08/24/2022: Patient doing pretty well Moving around pretty well Hematuria noted so we will hold Eliquis Hematuria is likely why he was not on anticoagulation to begin with with a history of chronic A. fib 08/23/2022: Improved status Onset AF on Tely so Eliquis started by Cardiology Monitoring closely 08/22/2022: Patient doing well Walking well with therapy Still very weak Maintained on oxygen Desaturation noted with activity Review of Systems General: Fatigue, Malaise Objective Exam Vital Signs Vital Signs Date Time Temp Pulse Resp B/P (MAP) Pulse Ox O2 Delivery O2 Flow Rate FiO2 08/29/22 01:00 76 08/28/22 20:30 94 Nasal Cannula 5.00 08/28/22 20:18 36.3 20 104/62 (76) Capillary Refill : General Appearance: No Apparent Distress, WD/WN, Chronically ill, Obese HEENT: PERRL/EOMI, Normal ENT Inspection, Pharynx Normal Neck: Full Range of Motion, Normal Inspection, Non Tender, Supple, Carotid Bruit Respiratory: Chest Non Tender, Lungs Clear, Normal Breath Sounds, No Accessory Muscle Use, No Respiratory Distress Cardiovascular: Regular Rate, Rhythm, No Edema, No Gallop, No JVD, Normal Peripheral Pulses, Systolic Murmur Gastrointestinal: Normal Bowel Sounds, No Organomegaly, No Pulsatile Mass, Non Tender, Soft Back: Normal Inspection, No CVA Tenderness, No Vertebral Tenderness Extremity: Normal Capillary Refill, Normal Inspection, Normal Range of Motion, Non Tender, No Calf Tenderness, No Pedal Edema Neurologic/Psychiatric: Alert, Oriented x3, 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 FIM Transfers Therapy Code Descriptions/Definitions Functional [place] Measure: 0=Not Assessed/NA 4=Minimal Assistance 1=Total Assistance 5=Supervision or Setup 2=Maximal Assistance 6=Modified [place] 3=Moderate Assistance 7=Complete IndependenceSCALE: Activities may be completed with or without assistive devices. 5-Ptyxmiboeb-fqemnnu completes the activity by him/herself with no assistance from a helper. 5-Set-up or Clean-up Assistance-helper sets up or cleans up; patient completes activity. [place] assists only prior to or following the activity. 4-Supervision or Touching Assistance-helper provides verbal cues and/or touching/steadying and/or contact guard assistance as patient completes activity. Assistance may be provided throughout the activity or intermittently. 3-Partial/Moderate Assistance-helper does LESS THAN HALF the effort. [place] lifts, holds or supports trunk or limbs, but provides less than half the effort. 2-Substantial/Maximal Assistance-helper does MORE THAN HALF the effort. [place] lifts or holds trunk or limbs and provides more than half the effort. 2-Xjujgnsvx-qaheke does ALL the effort. Patient does none of the effort to complete the activity. Or, the assistance of 2 or more helpers is required for the patient to complete the activity. If activity was not attempted, code reason: 7-Patient Refused. 9-Not Applicable-not attempted and the patient did not perform the activity before the current illness, exacerbation or injury. 10-Not Attempted due to Environmental Limitations-(lack of equipment, weather restraints, etc.). 88-Not Attempted due to Medical Conditions or Safety Concerns. Roll Left to Right (QC): 4 Sit to Lying (QC): 4 Sit to Stand (QC): 5 Chair/Mzn-rg-Qzqfc Xfer(QC): 4 Car Transfer (QC): 4 Gait Training Does the Patient Walk?: Yes Distance: 150', 250' Walk 10 feet (QC): 5 Walk 50 ft with 2 Turns(QC): 5 Walk 150 ft (QC): 4 Walking 10ft/uneven surface-QC: 4 Gait Persons Needed: 1 Gait Assistive Device: FWW Wheelchair Training Does the Pt Use a Wheelchair?: Yes Distance: 150' Wheel 50 ft with 2 turns (QC): 3 Wheel 150 ft (QC): 3 Type of Wheelchair: Manual Stair Training #of Steps: 1 1 Step (curb) (QC): 4 4 Steps (QC): 88 12 Steps (QC): 88 Balance Picking up an Object (QC): 4 (CGA using a enamel shader) ADL-Treatment Eating (QC): 6 Oral Hygiene (QC): 5 Shower/Bathe Self (QC): 4 (SBA) Upper Body Dressing (QC): 5 Lower Body Dressing (QC): 5 On/Off Footwear (QC): 5 Toileting Hygiene (QC): 4 (SBA, VCS required for steps using urinal.) Toilet Transfer (QC): 4 (SBA on/off BSC over toilet.) Assessment/Plan Assessment and Plan Assess & Plan/Chief Complaint Assessment/Plan: Debility due to illness - Inpatient rehab - PT/OT eval and treat Atrial fibrillation (Follows with Dr. Carpenter) - AV block s/p pacemaker placement; rate and rhythm controlled. 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) - Still has position deficits in leg, motor and strength almost back to normal - On clopidegril and baby aspirin - Continue statin - COPD (Follows with [facility]) - Recent exacerbation - on 2L baseline, currently requiring more - continue incruse ellipta (LAMA) - DuoNebs PRN Pulmonary Fibrosis (diagnosed 3 months ago) - on sildenafil 20 - As above for COPD treatment PRN Urinary incontinence - [place] previous - Not currently taking reductase inhibitors/alpha blockers - Bladder scan for post void residual Hypertension - Hold home medication if normotensive T2DM - Monitor blood sugar - ISS as needed, adjust with exercise Hx of sleep apnea - Does not tolerate CPAP, uses 2L O2 NC at night - Baseline 2L Hematuria on 08/24/2022 -Hold anticoagulation and check urine UTI Pseudomonas Plan: Consult Cardiology Home meds O2 Monitor closely 08/22/2022: Patient doing well 08/23/2022: Eliquis 08/24/2022: Hold anticoagulation Check UA 08/25/2022: Change abx to Cipro and await UCx 08/26/2022: F/U on UCx Monitor closely 08/27/2022: Complete abx Hold OAC until UTI treated 08/28/2022: Monitor HR Appreciated Dr Barnes (1) COPD exacerbation DAYANA GABRIEL DO Aug 28, 2022 06:14
[2022-08-28] MEDS: MULTIVIT W/MINERALS TAB (THERAGRAN M) PO SCH (06:57)
[2022-08-28 07:51] VITALS: BP 106/63
[2022-08-28] MEDS: PANTOPRAZOLE 40 MG (PROTONIX) TAB PO SCH (08:10)
[2022-08-28] MEDS: UMECLIDINIUM BROMIDE (INCRUSE ELLIPTA) 7'S IH SCH (08:10)
[2022-08-28] MEDS: meTOprolol TARTRATE 50 MG (LOPRESSOR) TAB PO SCH (08:10)
[2022-08-28] MEDS: predniSONE 10 MG TAB PO SCH (08:10)
[2022-08-28] MEDS: CIPROFLOXACIN 500 MG (CIPRO) TABLET PO SCH ×2 (08:11→20:29)
[2022-08-28] MEDS: ASPIRIN 81 MG CHEW (CHILDREN'S ASA) PO SCH (08:11)
[2022-08-28] MEDS: SILDENAFIL 20 MG (REVATIO) TAB PO SCH (08:11)
[2022-08-28] MEDS: SENNA W/DOCUSATE (SENOKOT S) TABLET PO SCH ×2 (08:11→20:31)
[2022-08-28] MEDS: DOCUSATE SODIUM 100 MG (COLACE) CAP PO SCH ×4 (08:14→20:32)
[2022-08-28] MEDS: polyethylene glycoL POWDER 17 GM (MIRALAX) PACK PO SCH ×2 (08:15→20:31)
--- NOTE | 2022-08-28 09:09 | Occupational Ther Daily Note ---
OT Current Status-Daily Note Subjective Pt in recliner, agreeable to OT Tx. During tx, ICU called pt's RN and informed RN of increased HR. HR 130-140's with minimal activity. RN requests OT to terminate tx at this time and wait for medications to kick in. Mental Status/Objective Patient Orientation: Normal For Age Attachments: Oxygen (5L) ADL-Treatment Therapy Code Descriptions/Definitions Functional [place] Measure: 0=Not Assessed/NA 4=Minimal Assistance 1=Total Assistance 5=Supervision or Setup 2=Maximal Assistance 6=Modified [place] 3=Moderate Assistance 7=Complete IndependenceSCALE: Activities may be completed with or without assistive devices. 1-Nzmqpmfhpf-oxtbyuy completes the activity by him/herself with no assistance from a helper. 5-Set-up or Clean-up Assistance-helper sets up or cleans up; patient completes activity. [place] assists only prior to or following the activity. 4-Supervision or Touching Assistance-helper provides verbal cues and/or touching/steadying and/or contact guard assistance as patient completes activity. Assistance may be provided throughout the activity or intermittently. 3-Partial/Moderate Assistance-helper does LESS THAN HALF the effort. [place] lifts, holds or supports trunk or limbs, but provides less than half the effort. 2-Substantial/Maximal Assistance-helper does MORE THAN HALF the effort. [place] lifts or holds trunk or limbs and provides more than half the effort. 4-Wlogwrutg-ouzmhd does ALL the effort. Patient does none of the effort to complete the activity. Or, the assistance of 2 or more helpers is required for the patient to complete the activity. If activity was not attempted, code reason: 7-Patient Refused. 9-Not Applicable-not attempted and the patient did not perform the activity before the current illness, exacerbation or injury. 10-Not Attempted due to Environmental Limitations-(lack of equipment, weather restraints, etc.). 88-Not Attempted due to Medical Conditions or Safety Concerns. On/Off Footwear: 5 Toileting Hygiene (QC): 4 (Pt able to manage clothing and place urinal with SBA. VCs for sequencing.) Other Treatment Pt in recliner, donned footwear with set up assistance. Pt requests to use urinal, able to stand at urinal and manage clothing, SBA with VCs for sequencing. Pt returned to sit in chair for rest break. RN arrived and states pt's HR is increased (130-140's). Pt took medications provided by nurse without difficulty. RN requests OT to hold on therapy at this time due to increased heart rate. OT will attempt tx again later this AM. Post tx, pt in recliner, call light in reach and all needs met. RN present. Education OT Patient Education: Correct positioning, Energy conservation, Modified ADL techniques, Progress toward Goal/Update tx plan, Purpose of tx/functional activities, Rehab process Teaching Recipient: Patient Teaching Methods: Discussion Response to Teaching: Verbalize Understanding OT Short Term Goals Short Term Goals Time Frame: Sep 05, 2022 Shower/bathe self: 5 Lower body dressin OT Mcc Goals Drafter Civil (Cad) Goals Time Frame: Sep 19, 2022 Acute change in mental status: 0 Inattention: 0 Disorganized thinkin Altered level of consciousness: 0 Eating (QC): 6 Oral Hygiene (QC): 6 Toileting Hygiene (QC): 6 Shower/Bathe Self (QC): 6 Upper Body Dressing (QC): 6 Lower Body Dressing (QC): 6 On/Off Footwear (QC): 6 Additional Goals: 1-Demonstrate ADL Tasks, 2-Verbalize Understanding, 3-ImproveStrength/Cece 1=Demonstrate adherence to instructed precautions during ADL tasks. 2=Patient will verbalize/demonstrate understanding of assistive devices/modifications for ADL. 3=Patient will improve strength/tolerance for activity to enable patient to perform ADL's. OT Education/Plan Problem List/Assessment Assessment: Decreased Activ Tolerance, Decreased UE Strength, Impaired Funct Balance, Impaired I ADL's, Impaired Self-Care Skills Discharge Recommendations Plan/Recommendations: Continue POC Treatment Plan/Plan of Care Patient would benefit from OT for education, treatment and training to promote independence in ADL's, mobility, safety and/or upper extremity function for ADL's. Plan of Care: ADL Retraining, Functional Mobility, Group Exercise/Act as Ind, UE Funct Exercise/Act Treatment Duration: Sep 19, 2022 Frequency: Modified Program (IRF) (14/02) Estimated Hrs Per Day: 1.5 hours per day (1-1.5 hours per day) Agreement: Yes Rehab Potential: Fair Time Start Time: 07:45 Stop Time: 08:15 DATE: Aug 28, 2022 Total Time Billed (hr/min): 30 Billed Treatment Time 1, ADL 2 LEONEL CARVALHO OT Aug 28, 2022 09:09
[2022-08-28 09:21] VITALS: BP_SYST 104; BP_SYST 106; BP_DIAS 63; BP_DIAS 76
[2022-08-28] MEDS: APIXABAN 5 MG (ELIQUIS) TABLET PO SCH ×2 (09:36→20:29)
--- NOTE | 2022-08-28 09:39 | Progress Note - Cardiology ---
Cardiology SOAP Progress Note Subjective: Sitting up in a recliner at the bedside No c/o CP, palpitations, syncope or near syncope SOB is unchanged from before Objective: I&O/Vital Signs 08/28/22 08/28/22 08/28/22 08/28/22 07:00 07:51 09:00 09:21 Temp 36.1 36.4 Pulse 124 132 117 Resp 30 18 B/P (MAP) 106/63 (77) 104/76 (85) Pulse Ox 92 92 O2 Delivery Nasal Cannula Nasal Cannula Nasal Cannula O2 Flow Rate 5.00 5.00 5.00 08/28/22 08/28/22 08/28/22 08/28/22 09:21 09:50 10:41 12:51 Temp 36.1 36.4 Pulse 132 117 95 Resp 30 18 B/P (MAP) 106/63 (77) 104/76 (85) Pulse Ox 92 92 92 O2 Delivery Nasal Cannula Nasal Cannula Nasal Cannula O2 Flow Rate 5.00 5.00 5.00 5.00 5.00 08/28/22 00:00 Intake Total 1140 ml Output Total 350 ml Balance 790 ml Constitutional: AAO x 3, well-developed, well-nourished Respiratory: chest expansion is symmetric, chest is bilaterally symmetric, other Cardiovascular: irregularly irregular, tachycardia, S1 and S2 Gastrointestional: soft, audible bowel sounds Extremities: no lower extremity edema bilateral Neurologic/Psychiatric: other Skin: No rash on exposed areas, No ulcerations on exposed areas Results/Procedures: Labs Microbiology 08/24/22 Urine Culture - Final, Complete Pseudomonas aeruginosa Pseudomonas aeruginosa#2 A/P: Assessment: Recent hospitalization at [facility] in [place], [place] d/t resp failure d/t pneumonia and Influenza A on 07-21-22 - transferred to [facility] in [place], [place] on 07-31-22 SSS. PAF with controlled vent response seen on tele of 08/23/22 (CHADSVASc score 6) - s/p pacemaker in 2019, followed by Dr Carpenter at [facility] - had been on apixaban for stroke prophylaxis since 08/23/22 - stopped (by medical services) d/t episode of hematuria - resumed today (08-28-22) UTI - management per medical services HTN HLD Pulmonary HTN - on sildenafil and chronic oxygen at home (prior to admission) - followed by Dr. Kaur of pulmonary services in [place], [place] CARLA DM 2 H/o previous CVA - Alexa 2016 - treated at [place] - per pt source undetermined - no residual COPD H/o tobaccoism - quit 30 yrs ago Plan: * HR is not well controlled (did not receive dose of BB last night d/t somewhat low BP) - decrease dose with hold parameters * Complex management of OAC and antiplatelet agents as described below * Plavix was stopped after starting Eliquis (to reduce risk fo bleeding) * Eliquis stopped per medical services d/t episode of hematuria - pt denies any further episodes of hematuria - Dr. Rust has allowed Eliquis be restarted today * continue ASA * labs reviewed, continue to monitor labs * UTI - management per medical services EMETERIO HUYNH Aug 28, 2022 09:39
[2022-08-28 09:50] VITALS: BP 104/76
--- NOTE | 2022-08-28 10:43 | Progress Note - Cardiology ---
Cardiology SOAP Progress Note Subjective: Gen malaise and weakness No focal weakness Shortness of breath with exertion No cp or palp or syncope No n/v/d Objective: I&O/Vital Signs 08/28/22 08/28/22 08/28/22 08/28/22 00:47 07:00 07:51 09:21 Temp 36.1 36.4 Pulse 83 124 132 117 Resp 30 18 B/P (MAP) 106/63 (77) 104/76 (85) Pulse Ox 92 O2 Delivery Nasal Cannula Nasal Cannula O2 Flow Rate 5.00 5.00 08/28/22 08/28/22 09:21 09:50 Temp 36.1 36.4 Pulse 132 117 Resp 30 18 B/P (MAP) 106/63 (77) 104/76 (85) Pulse Ox 92 92 O2 Delivery Nasal Cannula Nasal Cannula O2 Flow Rate 5.00 5.00 5.00 5.00 08/28/22 00:00 Intake Total 1140 ml Output Total 350 ml Balance 790 ml Constitutional: AAO x 3, well-developed, well-nourished Respiratory: chest expansion is symmetric, chest is bilaterally symmetric, other Cardiovascular: irregularly irregular, tachycardia, S1 and S2 Gastrointestional: soft, audible bowel sounds Extremities: no lower extremity edema bilateral Neurologic/Psychiatric: other Skin: No rash on exposed areas, No ulcerations on exposed areas Results/Procedures: Labs Microbiology 08/24/22 Urine Culture - Final, Complete Pseudomonas aeruginosa Pseudomonas aeruginosa#2 A/P: Assessment: Recent hospitalization at [facility] in [place], [place] d/t resp failure d/t pneumonia and Influenza A on 07-21-22 - transferred to [place] in [place], [place] on 07-31-22 SSS. PAF with controlled vent response seen on tele of 08/23/22 (CHADSVASc score 6) - s/p pacemaker in 2019, followed by Dr Carpenter at [facility] - had been on apixaban for stroke prophylaxis since 08/23/22 - stopped (by medical services) d/t episode of hematuria - resumed today (08-28-22) UTI - management per medical services HTN HLD Pulmonary HTN - on sildenafil and chronic oxygen at home (prior to admission) - followed by Dr. Kaur of pulmonary services in [place], [place] CARLA DM 2 H/o previous CVA - Alexa 2017 - treated at [place] - per pt source undetermined - no residual COPD H/o tobaccoism - quit 30 yrs ago Plan: * HR is not well controlled (did not receive dose of BB last night d/t somewhat low BP) - decrease dose and add hold parameters (goal is to continue some beta-keaton round the clock) * Complex management of OAC and antiplatelet agents as described below * Plavix was stopped after starting Eliquis (to reduce risk fo bleeding) * Eliquis stopped per medical services d/t episode of hematuria - pt denies any further episodes of hematuria - Dr. Rust has allowed Eliquis be restarted today * continue ASA * monitor labs * UTI - management per medical services EDUARDO LANE MD FACP FAC CCDS Aug 28, 2022 10:43
--- NOTE | 2022-08-28 11:27 | Occupational Ther Daily Note ---
OT Current Status-Daily Note Subjective Pt agreeable to therapy tx at this time. Mental Status/Objective Attachments: Oxygen (5-6L) ADL-Treatment Therapy Code Descriptions/Definitions Functional [place] Measure: 0=Not Assessed/NA 4=Minimal Assistance 1=Total Assistance 5=Supervision or Setup 2=Maximal Assistance 6=Modified [place] 3=Moderate Assistance 7=Complete IndependenceSCALE: Activities may be completed with or without assistive devices. 9-Pxloqrdvcy-wboaojx completes the activity by him/herself with no assistance from a helper. 5-Set-up or Clean-up Assistance-helper sets up or cleans up; patient completes activity. [place] assists only prior to or following the activity. 4-Supervision or Touching Assistance-helper provides verbal cues and/or touching/steadying and/or contact guard assistance as patient completes activity. Assistance may be provided throughout the activity or intermittently. 3-Partial/Moderate Assistance-helper does LESS THAN HALF the effort. [place] lifts, holds or supports trunk or limbs, but provides less than half the effort. 2-Substantial/Maximal Assistance-helper does MORE THAN HALF the effort. [place] lifts or holds trunk or limbs and provides more than half the effort. 2-Ieeywnfdo-opqpbl does ALL the effort. Patient does none of the effort to complete the activity. Or, the assistance of 2 or more helpers is required for the patient to complete the activity. If activity was not attempted, code reason: 7-Patient Refused. 9-Not Applicable-not attempted and the patient did not perform the activity before the current illness, exacerbation or injury. 10-Not Attempted due to Environmental Limitations-(lack of equipment, weather restraints, etc.). 88-Not Attempted due to Medical Conditions or Safety Concerns. Other Treatment [id number]: OT/PT cotreat due to skill of 2 clinicians required which a rehab director could not perform in order to coordinate UE/LEs, decrease fall risk, and due to pt's limitations in strength, activity tolerance, mobility, and standing tolerance. OT focused on UE placement, cues for sequencing and safety while PT focused on LE placement, gross overall movement and dynamic standing balance. Pt completed balloon batting in standing x3 rounds, reaching in all planes with RUE. Pt only able to stand for short periods before needing an extensive rest break. Pt then stood and completed functional reaching activity at table. Reaching for, grasping, and placing 1" pegs into foam pegboard. Pt favored RUE during task, requiring Vcs to use LUE as well. Pt able to stand x3 rounds with rest breaks between. End of cotreatment. [id number]: OT tx. Pt completed remainder of pegboard task, seated. Placing x100 pegs total into foam pegboard, then removing pegs. Pt used FWW to return to his room, SBA. Post tx, pt in recliner, call light in reach and all needs met. O2 returned to 5L post tx. O2 saturation decreased to 83% with activity on 6L, increasing back into the 90's after several minutes. Education OT Patient Education: Correct positioning, Energy conservation, Modified ADL techniques, Progress toward Goal/Update tx plan, Purpose of tx/functional activities Teaching Recipient: Patient Teaching Methods: Discussion Response to Teaching: Verbalize Understanding OT Short Term Goals Short Term Goals Time Frame: Sep 05, 2022 Shower/bathe self: 5 Lower body dressin OT Correction Goals Correction Goals Time Frame: Sep 19, 2022 Acute change in mental status: 0 Inattention: 0 Disorganized thinkin Altered level of consciousness: 0 Eating (QC): 6 Oral Hygiene (QC): 6 Toileting Hygiene (QC): 6 Shower/Bathe Self (QC): 6 Upper Body Dressing (QC): 6 Lower Body Dressing (QC): 6 On/Off Footwear (QC): 6 Additional Goals: 1-Demonstrate ADL Tasks, 2-Verbalize Understanding, 3- ImproveStrength/Cece 1=Demonstrate adherence to instructed precautions during ADL tasks. 2=Patient will verbalize/demonstrate understanding of assistive devices/modifications for ADL. 3=Patient will improve strength/tolerance for activity to enable patient to perform ADL's. OT Education/Plan Problem List/Assessment Assessment: Decreased Activ Tolerance, Decreased UE Strength, Impaired Funct Balance, Impaired I ADL's, Impaired Self-Care Skills Discharge Recommendations Plan/Recommendations: Continue POC Treatment Plan/Plan of Care Patient would benefit from OT for education, treatment and training to promote independence in ADL's, mobility, safety and/or upper extremity function for ADL's. Plan of Care: ADL Retraining, Functional Mobility, Group Exercise/Act as Ind, UE Funct Exercise/Act Treatment Duration: Sep 19, 2022 Frequency: Modified Program (IRF) (14/02) Estimated Hrs Per Day: 1.5 hours per day (1-1.5 hours per day) Agreement: Yes Rehab Potential: Fair Time Start Time: 10:45 Stop Time: 11:45 DATE: Aug 28, 2022 Total Time Billed (hr/min): 60 Billed Treatment Time cotreat x45', OT tx x15' 1, FA 4 LEONEL CARVALHO OT Aug 28, 2022 11:27
--- NOTE | 2022-08-28 11:28 | Physical Therapy Daily Note ---
PT Daily Note-Current Subjective Patient in restroom pre tx, agrees to PT, has no complaints of pain. Will be co-treating with OT for part of tx due to poor patient mobility, strength, endurance, severe debility, coordinate UE and LE with activity, safety and reduce risk of falls. Pain Section J - Health Conditions 1. Rarely or not at all 2. Occasionally 3. Frequently 4. Almost constantly 8. Unable to answer Pain Effect on Sleep: 2 Pain Interference with Therapy: 2 Pain Interference w/Day-to-Day: 2 Appearance Patient in therapy gym post tx, will continue for a bit with OT. Mental Status Patient Orientation: Person, Place, Situation Transfers SCALE: Activities may be completed with or without assistive devices. 0-Xdjvajfrlv-buxzlrx completes the activity by him/herself with no assistance from a helper. 5-Set-up or Clean-up Assistance-helper sets up or cleans up; patient completes activity. [place] assists only prior to or following the activity. 4-Supervision or Touching Assistance-helper provides verbal cues and/or touching/steadying and/or contact guard assistance as patient completes activity. Assistance may be provided throughout the activity or intermittently. 3-Partial/Moderate Assistance-helper does LESS THAN HALF the effort. [place] lifts, holds or supports trunk or limbs, but provides less than half the effort. 2-Substantial/Maximal Assistance-helper does MORE THAN HALF the effort. [place] lifts or holds trunk or limbs and provides more than half the effort. 4-Scayyyabm-hcrvqj does ALL the effort. Patient does none of the effort to comp lete the activity. Or, the assistance of 2 or more helpers is required for the patient to complete the activity. If activity was not attempted, code reason: 7-Patient Refused. 9-Not Applicable-not attempted and the patient did not perform the activity before the current illness, exacerbation or injury. 10-Not Attempted due to Environmental Limitations-(lack of equipment, weather restraints, etc.). 88-Not Attempted due to Medical Conditions or Safety Concerns. Sit to Stand (QC): 4 Chair/Qcw-zr-Xpzgm Xfer(QC): 4 Toilet Transfer (QC): 4 SBA. Patient ambulates from the restroom to his recliner to rest and then gets dressed with assist. Weight Bearing Full Weight Bearing Full Weight Bearing Gait Training Distance: 150' Walk 10 feet (QC): 4 Walk 50 ft with 2 Turns(QC): 4 Walk 150 ft (QC): 4 Gait Persons Needed: 1 Gait Assistive Device: FWW SBA, slow but steady ambulation, O2 was 83% after ambulation, took a couple of minutes to recover with purse lip breathing Exercises LAQ alternating for 5 min, standing activities working on endurance and leg strength (hitting balloon and placing pegs in a pegboard) NuStep Minutes: 15 NuStep Workload: 4 Treatments PT performed dressing, toileting, ambulation, transfers, standing and safety during standing activities, OT performed standing activities, UE positioning and safety during activity Assessment Current Status: Fair Progress slowly improving endurance, patient still needs frequent rest breaks, fatigues easily PT Short Term Goals Short Term Goals Time Frame: Aug 28, 2022 Sit to stand: 4 Chair/ovh-vs-dwllz transfer: 4 Walk 10 feet: 4 Walk 50 feet with two turns: 4 Walk 150 feet: 4 PT Health Services Manager Goals Health Services Manager Goals PT Health Services Manager Goals Time Frame: Sep 04, 2022 Roll Left & Right (QC): 6 Sit to Lying (QC): 6 Lying-Sitting on Side/Bed(QC): 6 Sit to Stand (QC): 6 Chair/Hsj-gm-Rqnhf Xfer(QC): 6 Toilet Transfer (QC): 6 Car Transfer (QC): 6 Does the Patient Walk: Yes Walk 10 feet (QC): 6 Walk 50ft with 2 Turns (QC): 6 Walk 150 ft (QC): 6 Walking 10ft on Uneven Surface: 6 1 Step (curb) (QC): 4 (SBA) 4 Steps (QC): 4 (SBA) 12 Steps (QC): 88 Picking up an Object (QC): 6 Wheel 50 feet with 2 turns (QC: 9 Wheel 150 feet: 9 PT Plan Problem List Problem List: Activity Tolerance, Functional Strength, Safety, Balance, Gait, Transfer, Bed Mobility, ROM Treatment/Plan Treatment Plan: Continue Plan of Care Treatment Plan: Bed Mobility, Education, Functional Activity Cece, Functional Strength, Group Therapy, Gait, Safety, Therapeutic Exercise, Transfers Treatment Duration: Sep 04, 2022 Frequency: At least 5 of 7 days/Wk (IRF) Estimated Hrs Per Day: 1.5 hours per day Patient and/or Family Agrees t: Yes Safety Risks/Education Patient Education: Gait Training, Transfer Techniques, Correct Positioning, W/C Management, Safety Issues Teaching Recipient: Patient Teaching Methods: Demonstration, Discussion Response to Teaching: Reinforcement Needed Time Time In: 1000 Time Out: 1130 DATE: Aug 28, 2022 Total Billed Treatment Time: 90 Total Billed Treatment 1 visiti EX 20' FA 70' co-treated from [id number] RAVI CHAVEZ PT Aug 28, 2022 11:28
[2022-08-28] MEDS: meTOprolol TARTRATE 25 MG (LOPRESSOR) TABLET PO SCH ×2 (12:52→20:29)
[2022-08-28 20:18] VITALS: BP 104/62
[2022-08-28] MEDS: eZETimibe 10 MG (ZETIA) TABLET PO SCH (20:30)
--- NOTE | 2022-08-29 06:24 | PM&R Progress Note ---
Subjective HPI/CC On Admission Date Seen by Provider: Aug 29, 2022 Time Seen by Provider: 12:00 Subjective/Events-last exam 08/29/2022: Doing well today Improved overall Pulse controlled No falls BM+ No hematuria Restarted OAC yesterday 08/28/2022: Doing well except tachycardia of AF Dr Barnes adjusted meds No other issues DC Thursday08/27/2022: Patient doing well Will extend stay by 2 days if ok with the patient in case he can improve Desat occurs with activity 08/26/2022: Improved status Cipro maintained for UTI No pain reported O2 sat stable 08/25/2022: Hematuria improved No pain reported Holding OAC UTI being treated with Cipro until final Cx since it appears to be Pseudomonas. No h/o UTI per patient 08/24/2022: Patient doing pretty well Moving around pretty well Hematuria noted so we will hold Eliquis Hematuria is likely why he was not on anticoagulation to begin with with a history of chronic A. fib 08/23/2022: Improved status Onset AF on Tely so Eliquis started by Cardiology Monitoring closely 08/22/2022: Patient doing well Walking well with therapy Still very weak Maintained on oxygen Desaturation noted with activity Review of Systems General: Fatigue, Malaise Pulmonary: Dyspnea Objective Exam Vital Signs Vital Signs Date Time Temp Pulse Resp B/P (MAP) Pulse Ox O2 Delivery O2 Flow Rate FiO2 08/29/22 20:10 36.4 87 22 123/65 (84) 96 Nasal Cannula 5.00 Capillary Refill : General Appearance: No Apparent Distress, WD/WN, Chronically ill, Obese HEENT: PERRL/EOMI, Normal ENT Inspection, Pharynx Normal Neck: Full Range of Motion, Normal Inspection, Non Tender, Supple, Carotid Bruit Respiratory: Chest Non Tender, Lungs Clear, Normal Breath Sounds, No Accessory Muscle Use, No Respiratory Distress Cardiovascular: Regular Rate, Rhythm, No Edema, No Gallop, No JVD, Normal Peripheral Pulses, Systolic Murmur Gastrointestinal: Normal Bowel Sounds, No Organomegaly, No Pulsatile Mass, Non Tender, Soft Back: Normal Inspection, No CVA Tenderness, No Vertebral Tenderness Extremity: Normal Capillary Refill, Normal Inspection, Normal Range of Motion, Non Tender, No Calf Tenderness, No Pedal Edema Neurologic/Psychiatric: Alert, Oriented x3, medical appointment clerk II-XII Norm as Tested, Abnormal Gait, Depressed Affect, Motor Weakness (generalized weakness) Skin: Normal Color, Warm/Dry Lymphatic: No Adenopathy Results/Procedures Lab Patient resulted labs reviewed. FIM Transfers Therapy Code Descriptions/Definitions Functional [place] Measure: 0=Not Assessed/NA 4=Minimal Assistance 1=Total Assistance 5=Supervision or Setup 2=Maximal Assistance 6=Modified [place] 3=Moderate Assistance 7=Complete IndependenceSCALE: Activities may be completed with or without assistive devices. 9-Rmrbvdqaxa-nwppedf completes the activity by him/herself with no assistance from a helper. 5-Set-up or Clean-up Assistance-helper sets up or cleans up; patient completes activity. [place] assists only prior to or following the activity. 4-Supervision or Touching Assistance-helper provides verbal cues and/or touching/steadying and/or contact guard assistance as patient completes activity. Assistance may be provided throughout the activity or intermittently. 3-Partial/Moderate Assistance-helper does LESS THAN HALF the effort. [place] lifts, holds or supports trunk or limbs, but provides less than half the effort. 2-Substantial/Maximal Assistance-helper does MORE THAN HALF the effort. [place] lifts or holds trunk or limbs and provides more than half the effort. 0-Mlojnejic-vtpznx does ALL the effort. Patient does none of the effort to complete the activity. Or, the assistance of 2 or more helpers is required for the patient to complete the activity. If activity was not attempted, code reason: 7-Patient Refused. 9-Not Applicable-not attempted and the patient did not perform the activity before the current illness, exacerbation or injury. 10-Not Attempted due to Environmental Limitations-(lack of equipment, weather restraints, etc.). 88-Not Attempted due to Medical Conditions or Safety Concerns. Roll Left to Right (QC): 4 Sit to Lying (QC): 4 Sit to Stand (QC): 4 Chair/Ejd-yr-Vudvs Xfer(QC): 4 Car Transfer (QC): 4 Gait Training Does the Patient Walk?: Yes Distance: 150' Walk 10 feet (QC): 4 Walk 50 ft with 2 Turns(QC): 4 Walk 150 ft (QC): 4 Walking 10ft/uneven surface-QC: 4 Gait Persons Needed: 1 Gait Assistive Device: FWW Wheelchair Training Does the Pt Use a Wheelchair?: Yes Distance: 150' Wheel 50 ft with 2 turns (QC): 3 Wheel 150 ft (QC): 3 Type of Wheelchair: Manual Stair Training #of Steps: 1 1 Step (curb) (QC): 4 4 Steps (QC): 88 12 Steps (QC): 88 Balance Picking up an Object (QC): 4 (CGA using a coremaker bench) ADL-Treatment Eating (QC): 6 Oral Hygiene (QC): 5 Shower/Bathe Self (QC): 4 (SBA) Upper Body Dressing (QC): 5 Lower Body Dressing (QC): 5 On/Off Footwear (QC): 5 Toileting Hygiene (QC): 4 (Pt able to manage clothing and place urinal with SBA. VCs for sequencing.) Toilet Transfer (QC): 4 (SBA on/off BSC over toilet.) Assessment/Plan Assessment and Plan Assess & Plan/Chief Complaint Assessment/Plan: Debility due to illness - Inpatient rehab - PT/OT eval and treat Atrial fibrillation (Follows with Dr. Carpenter) - AV block s/p pacemaker placement; rate and rhythm controlled. 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) - Still has position deficits in leg, motor and strength almost back to normal - On clopidegril and baby aspirin - Continue statin - COPD (Follows with [facility]) - Recent exacerbation - on 2L baseline, currently requiring more - continue incruse ellipta (LAMA) - DuoNebs PRN Pulmonary Fibrosis (diagnosed 3 months ago) - on sildenafil 20 - As above for COPD treatment PRN Urinary incontinence - Hodgson previous - Not currently taking reductase inhibitors/alpha blockers - Bladder scan for post void residual Hypertension - Hold home medication if normotensive T2DM - Monitor blood sugar - ISS as needed, adjust with exercise Hx of sleep apnea - Does not tolerate CPAP, uses 2L O2 NC at night - Baseline 2L Hematuria on 08/24/2022 -Hold anticoagulation and check urine UTI Pseudomonas Plan: Consult Cardiology Home meds O2 Monitor closely 08/22/2022: Patient doing well 08/23/2022: Eliquis 08/24/2022: Hold anticoagulation Check UA 08/25/2022: Change abx to Cipro and await UCx 08/26/2022: F/U on UCx Monitor closely 08/27/2022: Complete abx Hold OAC until UTI treated 08/28/2022: Monitor HR Appreciated Dr Barnes 08/29/2022: Restarted OAC yesterday Complete abx for UTI (1) COPD exacerbation DAYANA GABRIEL DO Aug 29, 2022 06:24
[2022-08-29] MEDS: MULTIVIT W/MINERALS TAB (THERAGRAN M) PO SCH (06:32)
[2022-08-29 07:31] VITALS: BP 133/85
[2022-08-29] MEDS: UMECLIDINIUM BROMIDE (INCRUSE ELLIPTA) 7'S IH SCH (08:19)
--- NOTE | 2022-08-29 08:37 | Occupational Ther Daily Note ---
OT Current Status-Daily Note Subjective Pt agreeable to OT Tx. Mental Status/Objective Patient Orientation: Normal For Age Attachments: Oxygen (5-6L ) ADL-Treatment Therapy Code Descriptions/Definitions Functional [place] Measure: 0=Not Assessed/NA 4=Minimal Assistance 1=Total Assistance 5=Supervision or Setup 2=Maximal Assistance 6=Modified [place] 3=Moderate Assistance 7=Complete IndependenceSCALE: Activities may be completed with or without assistive devices. 8-Badwokpzxb-znvsclq completes the activity by him/herself with no assistance from a helper. 5-Set-up or Clean-up Assistance-helper sets up or cleans up; patient completes activity. [place] assists only prior to or following the activity. 4-Supervision or Touching Assistance-helper provides verbal cues and/or touching/steadying and/or contact guard assistance as patient completes activity. Assistance may be provided throughout the activity or intermittently. 3-Partial/Moderate Assistance-helper does LESS THAN HALF the effort. [place] lifts, holds or supports trunk or limbs, but provides less than half the effort. 2-Substantial/Maximal Assistance-helper does MORE THAN HALF the effort. [place] lifts or holds trunk or limbs and provides more than half the effort. 9-Tkqruespk-qkjbmb does ALL the effort. Patient does none of the effort to co mplete the activity. Or, the assistance of 2 or more helpers is required for the patient to complete the activity. If activity was not attempted, code reason: 7-Patient Refused. 9-Not Applicable-not attempted and the patient did not perform the activity before the current illness, exacerbation or injury. 10-Not Attempted due to Environmental Limitations-(lack of equipment, weather restraints, etc.). 88-Not Attempted due to Medical Conditions or Safety Concerns. Eating (QC): 6 Upper Body Dressing (QC): 5 Lower Body Dressing (QC): 4 (VCs for continuation of task) On/Off Footwear: 5 Toileting Hygiene (QC): 4 (SBA) Toilet Transfer (QC): 4 (SBA) Other Treatment Pt in recliner, stood at recliner to use urinal, SBA. Pt then donned clothes at recliner level. Pt required VCs between steps of dressing, as pt tends to take significant rest breaks and doesn't initiate next step without cues. Pt required frequent and significant rest breaks during ADLS, O2 saturation remained above 90% on 6L NC. Pt used FWW to transfer into bathroom and onto BSC over toilet. Pt completed toileting, SBA with min VCS for sequencing. Pt took seated rest break, then used FWW to perform functional mobility to therapy gym, SBA, OT managed portable O2 tank. O2 saturation at 73% after mobility, taking several minutes to return above 90% on 6L O2. After pt recovered into the 90%'s, pt still required a few more minutes to where he felt recovered enough to participate in next activity. In order to increase BUE Strength and activity tolerance, pt completed arm bike, 20 Watt resistance, 15 mins total, 2 extensive rest breaks. Pt's O2 saturation in upper 90%'s with arm bike. Pt used FWW to return to his room and transfer to recliner, O2 saturation at 83%, taking several minutes to return above 90%. Post tx, pt left on 5L O2 via NC, call light in reach and all needs met. Education OT Patient Education: Correct positioning, Energy conservation, Exercise program, Modified ADL techniques, Progress toward Goal/Update tx plan, Purpose of tx/functional activities, Rehab process Teaching Recipient: Patient Teaching Methods: Discussion Response to Teaching: Verbalize Understanding OT Short Term Goals Short Term Goals Time Frame: Sep 05, 2022 Shower/bathe self: 5 Lower body dressin OT Spinning Frame Tender Goals Spinning Frame Tender Goals Time Frame: Sep 19, 2022 Acute change in mental status: 0 Inattention: 0 Disorganized thinkin Altered level of consciousness: 0 Eating (QC): 6 Oral Hygiene (QC): 6 Toileting Hygiene (QC): 6 Shower/Bathe Self (QC): 6 Upper Body Dressing (QC): 6 Lower Body Dressing (QC): 6 On/Off Footwear (QC): 6 Additional Goals: 1-Demonstrate ADL Tasks, 2-Verbalize Understanding, 3- ImproveStrength/Cece 1=Demonstrate adherence to instructed precautions during ADL tasks. 2=Patient will verbalize/demonstrate understanding of assistive devices/modifications for ADL. 3=Patient will improve strength/tolerance for activity to enable patient to perform ADL's. OT Education/Plan Problem List/Assessment Assessment: Decreased Activ Tolerance, Decreased UE Strength, Impaired Funct Balance, Impaired I ADL's, Impaired Self-Care Skills Discharge Recommendations Plan/Recommendations: Continue POC Treatment Plan/Plan of Care Patient would benefit from OT for education, treatment and training to promote independence in ADL's, mobility, safety and/or upper extremity function for ADL's. Plan of Care: ADL Retraining, Functional Mobility, Group Exercise/Act as Ind, UE Funct Exercise/Act Treatment Duration: Sep 19, 2022 Frequency: Modified Program (IRF) (14/02) Estimated Hrs Per Day: 1.5 hours per day (1-1.5 hours per day) Agreement: Yes Rehab Potential: Fair Time Start Time: 07:45 Stop Time: 09:15 DATE: Aug 29, 2022 Total Time Billed (hr/min): 90 Billed Treatment Time 1, ADL 4 (65'), EX 2 (25') LEONEL CARVALHO OT Aug 29, 2022 08:37
[2022-08-29] MEDS: APIXABAN 5 MG (ELIQUIS) TABLET PO SCH ×2 (08:44→21:27)
[2022-08-29] MEDS: predniSONE 10 MG TAB PO SCH (08:44)
[2022-08-29] MEDS: SENNA W/DOCUSATE (SENOKOT S) TABLET PO SCH ×2 (08:44→21:46)
[2022-08-29] MEDS: ASPIRIN 81 MG CHEW (CHILDREN'S ASA) PO SCH (08:44)
[2022-08-29] MEDS: DOCUSATE SODIUM 100 MG (COLACE) CAP PO SCH ×2 (08:44→21:45)
[2022-08-29] MEDS: SILDENAFIL 20 MG (REVATIO) TAB PO SCH (08:44)
[2022-08-29] MEDS: meTOprolol TARTRATE 25 MG (LOPRESSOR) TABLET PO SCH ×3 (08:45→21:27)
[2022-08-29] MEDS: CIPROFLOXACIN 500 MG (CIPRO) TABLET PO SCH ×2 (08:45→21:27)
[2022-08-29] MEDS: PANTOPRAZOLE 40 MG (PROTONIX) TAB PO SCH (08:45)
[2022-08-29] MEDS: polyethylene glycoL POWDER 17 GM (MIRALAX) PACK PO SCH ×2 (08:47→21:46)
--- NOTE | 2022-08-29 09:45 | Progress Note - Cardiology ---
Cardiology SOAP Progress Note Subjective: Sitting up in recliner at the bedside Reports feeling of fast heart beat when exerting self No c/o CP SOB is unchanged Objective: I&O/Vital Signs 08/31/22 09/01/22 09/01/22 09/01/22 21:35 01:00 07:00 07:18 Temp 36.6 Pulse 94 111 116 Resp 28 B/P (MAP) 127/84 (98) Pulse Ox 90 O2 Delivery Nasal Cannula Nasal Cannula O2 Flow Rate 4.00 4.00 09/01/22 00:00 Intake Total 1337 ml Output Total 200 ml Balance 1137 ml Constitutional: AAO x 3, well-developed, well-nourished Respiratory: chest expansion is symmetric, chest is bilaterally symmetric, other Cardiovascular: irregularly irregular, tachycardia, S1 and S2 Gastrointestional: soft, audible bowel sounds Extremities: no lower extremity edema bilateral Neurologic/Psychiatric: other Skin: No rash on exposed areas, No ulcerations on exposed areas Results/Procedures: Labs Laboratory Tests 09/01/22 05:30: White Blood Count 5.8, Red Blood Count 4.48, Hemoglobin 14.3, Hematocrit 43, Mean Corpuscular Volume 96, Mean Corpuscular Hemoglobin 32, Mean Corpuscular Hemoglobin Concent 33, Red Cell Distribution Width 15.2H, Platelet Count 135, Mean Platelet Volume 9.7, Immature Granulocyte % (Auto) 2, Neutrophils (%) (Auto) 56, Lymphocytes (%) (Auto) 27, Monocytes (%) (Auto) 14H, Eosinophils (%) (Auto) 1, Basophils (%) (Auto) 0, Neutrophils # (Auto) 3.3, Lymphocytes # (Auto) 1.6, Monocytes # (Auto) 0.8, Eosinophils # (Auto) 0.1, Basophils # (Auto) 0.0, Immature Granulocyte # (Auto) 0.1, Percent Immature Platelet Fraction 1.9, Sodium Level 138, Potassium Level 3.9, Chloride Level 102, Carbon Dioxide Level 26, Anion Gap 10, Blood Urea Nitrogen 15, Creatinine 0.98, Estimat Glomerular Filtration Rate 80, BUN/Creatinine Ratio 15, Glucose Level 126H, Calcium Level 9.2, Corrected Calcium 9.7, Total Bilirubin 0.8, Aspartate Amino Transf (AST/SGOT) 37H, Alanine Aminotransferase (ALT/SGPT) 74H, Alkaline Phosphatase 70, Total Protein 6.7, Albumin 3.4 Microbiology 08/24/22 Urine Culture - Final, Complete Pseudomonas aeruginosa Pseudomonas aeruginosa#2 A/P: Assessment: Recent hospitalization at [facility] in [place], [place] d/t resp failure d/t pneumonia and Influenza A on 07-21-22 - transferred to [place] in [place], [place] on 07-31-22 SSS. PAF with controlled vent response seen on tele of 08/23/22 (CHADSVASc score 6) - s/p pacemaker in 2019, followed by Dr Carpenter at [facility] - had been on apixaban for stroke prophylaxis since 08/23/22 - stopped (by medical services) d/t episode of hematuria - resumed today (08-28-22) UTI - management per medical services HTN HLD Pulmonary HTN - on sildenafil and chronic oxygen at home (prior to admission) - followed by Dr. Kaur of pulmonary services in [place], [place] CARLA DM 2 H/o previous CVA - Alexa2016 - treated at [facility] - per pt source undetermined - no residual COPD H/o tobaccoism - quit 30 yrs ago Plan: * HR is not well controlled when in a-fib - can not tolerate increased dose of of BB d/t hypotension - will add calcium channel keaton for rate control * Complex management of OAC and antiplatelet agents as described below * Plavix was stopped after starting Eliquis (to reduce risk fo bleeding) * Eliquis stopped per medical services d/t episode of hematuria - pt denies any further episodes of hematuria - Dr. Rust has allowed Eliquis te be resumed * continue ASA * monitor labs * UTI - management per medical services EMETERIO HUYNH Aug 29, 2022 09:45
--- NOTE | 2022-08-29 09:47 | Progress Note - Cardiology ---
Cardiology SOAP Progress Note Subjective: Gets tired and short of breath and has a rapid heart rate with small amount of activity No cp or syncope No n/v/d Denies blood in urine Objective: I&O/Vital Signs 08/29/22 08/29/22 08/29/22 08/29/22 01:00 07:00 07:31 08:20 Temp 36.0 Pulse 76 110 107 Resp 18 B/P (MAP) 133/85 (101) Pulse Ox 98 91 O2 Delivery Nasal Cannula Nasal Cannula O2 Flow Rate 5.00 5.00 08/29/22 00:00 Intake Total 1510 ml Balance 1510 ml Constitutional: AAO x 3, well-developed, well-nourished Respiratory: chest expansion is symmetric, chest is bilaterally symmetric, other Cardiovascular: irregularly irregular, tachycardia, S1 and S2 Gastrointestional: soft, audible bowel sounds Extremities: no lower extremity edema bilateral Neurologic/Psychiatric: other Skin: No rash on exposed areas, No ulcerations on exposed areas Results/Procedures: Labs Microbiology 08/24/22 Urine Culture - Final, Complete Pseudomonas aeruginosa Pseudomonas aeruginosa#2 A/P: Assessment: Recent hospitalization at [facility] in [place], [place] d/t resp failure d/t pneumonia and Influenza A on 07-21-22 - transferred to [facility] in [place], [place] on 07-31-22 SSS. PAF with controlled vent response seen on tele of 08/23/22 (CHADSVASc score 6) - s/p pacemaker in 2019, followed by Dr Carpenter at [facility] - had been on apixaban for stroke prophylaxis since 08/23/22 - stopped (by medical services) d/t episode of hematuria - resumed today (08-28-22) UTI - management per medical services HTN HLD Pulmonary HTN - on sildenafil and chronic oxygen at home (prior to admission) - followed by Dr. Kaur of pulmonary services in [place], [place] CARLA DM 2 H/o previous CVA - Alexa2016 - treated at [facility] [place] - per pt source undetermined - no residual COPD H/o tobaccoism - quit 30 yrs ago Plan: * HR is not well controlled (did not receive dose of BB last night d/t somewhat low BP) - continue bb and add long-acting dilt * Complex management of OAC and antiplatelet agents as described below * Plavix was stopped after starting Eliquis (to reduce risk fo bleeding) * Eliquis stopped per medical services d/t episode of hematuria - pt denies any further episodes of hematuria - Dr. Rust has allowed Eliquis beginning 08/28/22 * continue ASA * monitor labs from time to time * UTI - management per medical services EDUARDO LANE MD FACP [facility] Aug 29, 2022 09:47
--- NOTE | 2022-08-29 10:50 | Physical Therapy Daily Note ---
PT Daily Note-Current Subjective Pt. in recliner upon entering. Pt shares that he has a lift recline chair at home and that he can recline to a point in it. Pt. states he used a cane at home and had only begun using O2 time piece repairer a couple weeks previous to this admission. Pt. states he does realize the advantage of FWW for energy conservation during gait. Pt. states he is SOB only a couple times during Rx but sats drop to mid 80s each gait trial and take a couple mins of rest and pursed lip breathing to recover Pain Location: No Pain Reported Section J - Health Conditions 1. Rarely or not at all 2. Occasionally 3. Frequently 4. Almost constantly 8. Unable to answer Pain Effect on Sleep: 1 Pain Interference with Therapy: 1 Pain Interference w/Day-to-Day: 1 Mental Status Patient Orientation: Normal For Age Attachments: Oxygen (5L) Transfers SCALE: Activities may be completed with or without assistive devices. 0-Unhzrwydtl-xqafsbn completes the activity by him/herself with no assistance from a helper. 5-Set-up or Clean-up Assistance-helper sets up or cleans up; patient completes activity. [place] assists only prior to or following the activity. 4-Supervision or Touching Assistance-helper provides verbal cues and/or touching/steadying and/or contact guard assistance as patient completes activity. Assistance may be provided throughout the activity or intermittently. 3-Partial/Moderate Assistance-helper does LESS THAN HALF the effort. [place] lifts, holds or supports trunk or limbs, but provides less than half the effort. 2-Substantial/Maximal Assistance-helper does MORE THAN HALF the effort. [place] lifts or holds trunk or limbs and provides more than half the effort. 9-Ilxwousrb-xfmjru does ALL the effort. Patient does none of the effort to complete the activity. Or, the assistance of 2 or more helpers is required for the patient to complete the activity. If activity was not attempted, code reason: 7-Patient Refused. 9-Not Applicable-not attempted and the patient did not perform the activity before the current illness, exacerbation or injury. 10-Not Attempted due to Environmental Limitations-(lack of equipment, weather restraints, etc.). 88-Not Attempted due to Medical Conditions or Safety Concerns. Roll Left & Right (QC): 6 Sit to Lying (QC): 6 Lying to Sitting/Side of Bed(Q: 6 Sit to Stand (QC): 6 Chair/Wvi-hp-Sujai Xfer(QC): 6 Weight Bearing Full Weight Bearing Full Weight Bearing Gait Training Does the Patient Walk?: Yes Walk 10 feet (QC): 4 Walk 50 ft with 2 Turns(QC): 4 Gait Persons Needed: 1 Gait Assistive Device: FWW pt. ambulates 50 to 65 ft x 5 trials with o2 sats dropping each trial to mid 80 with 2-3 min required for recovery Exercises Supine Ex: Ankle pumps, Quad Set, Rolling, Glut sets, Heel Slides, Short Arc Quads, Straight leg raise, Hip abd/add Supine Reps: 12 (x2) Seated Therapy Exercises: Ankle pumps, Sit to stand, Long arc quads, Hip flexion, Hip abd/add Seated Reps: 12 (x2) Treatments TRFs, gait, Therex in sitting and supine, monitoring of O2 , pt. desats in mid 80s with 50-60 ft gait , fatigues needs rest, needs more practice for safe gait with extended O2 using FWW Assessment Current Status: Good Progress desats with gait PT Short Term Goals Short Term Goals Time Frame: Aug 28, 2022 Sit to stand: 4 Chair/nst-zz-svbln transfer: 4 Walk 10 feet: 4 Walk 50 feet with two turns: 4 Walk 150 feet: 4 PT Glue Plant Operator Goals Nursing Home Goals PT Nursing Home Goals Time Frame: Sep 04, 2022 Roll Left & Right (QC): 6 Sit to Lying (QC): 6 Lying-Sitting on Side/Bed(QC): 6 Sit to Stand (QC): 6 Chair/Tgt-xu-Znqbw Xfer(QC): 6 Toilet Transfer (QC): 6 Car Transfer (QC): 6 Does the Patient Walk: Yes Walk 10 feet (QC): 6 Walk 50ft with 2 Turns (QC): 6 Walk 150 ft (QC): 6 Walking 10ft on Uneven Surface: 6 1 Step (curb) (QC): 4 (SBA) 4 Steps (QC): 4 (SBA) 12 Steps (QC): 88 Picking up an Object (QC): 6 Wheel 50 feet with 2 turns (QC: 9 Wheel 150 feet: 9 PT Plan Treatment/Plan Treatment Plan: Continue Plan of Care Treatment Plan: Bed Mobility, Education, Functional Activity Cece, Functional Strength, Group Therapy, Gait, Safety, Therapeutic Exercise, Transfers Treatment Duration: Sep 04, 2022 Frequency: At least 5 of 7 days/Wk (IRF) Estimated Hrs Per Day: 1.5 hours per day Patient and/or Family Agrees t: Yes Safety Risks/Education Patient Education: Gait Training, Transfer Techniques, Correct Positioning, Safety Issues (O2 ext tube) Teaching Recipient: Patient Teaching Methods: Demonstration, Discussion Response to Teaching: Verbalize Understanding, Return Demonstration, Reinforcement Needed Time Time In: 930 Time Out: 1100 DATE: Aug 29, 2022 Total Billed Treatment Time: 90 Total Billed Treatment 1,EX40m,GT30m,FA20 CHRISTIAN SANCHEZ ENVIRONMENTAL CONSTRUCTION ENGINEER Aug 29, 2022 10:50
[2022-08-29] MEDS ORDERED: LOSA50TA63 PO (14:47)
[2022-08-29] MEDS ORDERED: CARV12.53 PO (14:47)
[2022-08-29] MEDS ORDERED: GARL10002 PO (14:47)
[2022-08-29] MEDS ORDERED: ROSU40TA23 PO (14:47)
[2022-08-29 20:10] VITALS: BP 123/65
[2022-08-29] MEDS: eZETimibe 10 MG (ZETIA) TABLET PO SCH (21:27)
[2022-08-29] MEDS: MELATONIN 3 MG TABLET PO PRN (21:27)
[2022-08-30] MEDS: MULTIVIT W/MINERALS TAB (THERAGRAN M) PO SCH (06:06)
--- NOTE | 2022-08-30 06:47 | PM&R Progress Note ---
Subjective HPI/CC On Admission Date Seen by Provider: Aug 30, 2022 Time Seen by Provider: 12:00 Subjective/Events-last exam 08/30/2022: Improved status Always a bit dyspneic but no issues currently Eating well BM+ 08/29/2022: Doing well today Improved overall Pulse controlled No falls BM+ No hematuria Restarted OAC yesterday 08/28/2022: Doing well except tachycardia of AF Dr Barnes adjusted meds No other issues DC Thursday08/27/2022: Patient doing well Will extend stay by 2 days if ok with the patient in case he can improve Desat occurs with activity 08/26/2022: Improved status Cipro maintained for UTI No pain reported O2 sat stable 08/25/2022: Hematuria improved No pain reported Holding OAC UTI being treated with Cipro until final Cx since it appears to be Pseudomonas. No h/o UTI per patient 08/24/2022: Patient doing pretty well Moving around pretty well Hematuria noted so we will hold Eliquis Hematuria is likely why he was not on anticoagulation to begin with with a history of chronic A. fib 08/23/2022: Improved status Onset AF on Tely so Eliquis started by Cardiology Monitoring closely 08/22/2022: Patient doing well Walking well with therapy Still very weak Maintained on oxygen Desaturation noted with activity Review of Systems General: Fatigue, Malaise Objective Exam Vital Signs Vital Signs Date Time Temp Pulse Resp B/P (MAP) Pulse Ox O2 Delivery O2 Flow Rate FiO2 08/30/22 13:13 88 20 103/68 (80) 94 Nasal Cannula 4.00 08/30/22 07:43 36.5 Capillary Refill : General Appearance: No Apparent Distress, WD/WN, Chronically ill, Obese HEENT: PERRL/EOMI, Normal ENT Inspection, Pharynx Normal Neck: Full Range of Motion, Normal Inspection, Non Tender, Supple, Carotid Bruit Respiratory: Chest Non Tender, Lungs Clear, Normal Breath Sounds, No Accessory Muscle Use, No Respiratory Distress Cardiovascular: Regular Rate, Rhythm, No Edema, No Gallop, No JVD, Normal Peripheral Pulses, Systolic Murmur Gastrointestinal: Normal Bowel Sounds, No Organomegaly, No Pulsatile Mass, Non Tender, Soft Back: Normal Inspection, No CVA Tenderness, No Vertebral Tenderness Extremity: Normal Capillary Refill, Normal Inspection, Normal Range of Motion, Non Tender, No Calf Tenderness, No Pedal Edema Neurologic/Psychiatric: Alert, Oriented x3, farm equipment engine mechanic II-XII Norm as Tested, Abnormal Gait, Depressed Affect, Motor Weakness (generalized weakness) Skin: Normal Color, Warm/Dry Lymphatic: No Adenopathy Results/Procedures Lab Patient resulted labs reviewed. FIM Transfers Therapy Code Descriptions/Definitions Functional [place] Measure: 0=Not Assessed/NA 4=Minimal Assistance 1=Total Assistance 5=Supervision or Setup 2=Maximal Assistance 6=Modified [place] 3=Moderate Assistance 7=Complete IndependenceSCALE: Activities may be completed with or without assistive devices. 4-Iyqpoplhax-dbnykgy completes the activity by him/herself with no assistance from a helper. 5-Set-up or Clean-up Assistance-helper sets up or cleans up; patient completes activity. [place] assists only prior to or following the activity. 4-Supervision or Touching Assistance-helper provides verbal cues and/or touching/steadying and/or contact guard assistance as patient completes activity. Assistance may be provided throughout the activity or intermittently. 3-Partial/Moderate Assistance-helper does LESS THAN HALF the effort. [place] lifts, holds or supports trunk or limbs, but provides less than half the effort. 2-Substantial/Maximal Assistance-helper does MORE THAN HALF the effort. [place] lifts or holds trunk or limbs and provides more than half the effort. 1-Qabphxpfq-qaajtv does ALL the effort. Patient does none of the effort to complete the activity. Or, the assistance of 2 or more helpers is required for the patient to complete the activity. If activity was not attempted, code reason: 7-Patient Refused. 9-Not Applicable-not attempted and the patient did not perform the activity before the current illness, exacerbation or injury. 10-Not Attempted due to Environmental Limitations-(lack of equipment, weather restraints, etc.). 88-Not Attempted due to Medical Conditions or Safety Concerns. Roll Left to Right (QC): 6 Sit to Lying (QC): 6 Sit to Stand (QC): 6 Chair/Vmw-od-Acdix Xfer(QC): 6 Car Transfer (QC): 4 Gait Training Does the Patient Walk?: Yes Distance: 150' Walk 10 feet (QC): 4 Walk 50 ft with 2 Turns(QC): 4 Walk 150 ft (QC): 4 Walking 10ft/uneven surface-QC: 4 Gait Persons Needed: 1 Gait Assistive Device: FWW Wheelchair Training Does the Pt Use a Wheelchair?: Yes Distance: 150' Wheel 50 ft with 2 turns (QC): 3 Wheel 150 ft (QC): 3 Type of Wheelchair: Manual Stair Training #of Steps: 1 1 Step (curb) (QC): 4 4 Steps (QC): 88 12 Steps (QC): 88 Balance Picking up an Object (QC): 4 (CGA using a morphologist) ADL-Treatment Eating (QC): 6 Oral Hygiene (QC): 5 Shower/Bathe Self (QC): 4 (SBA) Upper Body Dressing (QC): 5 Lower Body Dressing (QC): 4 (VCs for continuation of task) On/Off Footwear (QC): 5 Toileting Hygiene (QC): 4 (SBA) Toilet Transfer (QC): 4 (SBA) Assessment/Plan Assessment and Plan Assess & Plan/Chief Complaint Assessment/Plan: Debility due to illness - Inpatient rehab - PT/OT eval and treat Atrial fibrillation (Follows with Dr. Carpenter) - AV block s/p pacemaker placement; rate and rhythm controlled. 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) - Recent exacerbation - on 2L baseline, currently requiring more - continue incruse ellipta (LAMA) - DuoNebs PRN Pulmonary Fibrosis (diagnosed 3 months ago) - on sildenafil 20 - As above for COPD treatment PRN Urinary incontinence - Hodgson previous - Not currently taking reductase inhibitors/alpha blockers - Bladder scan for post void residual Hypertension - Hold home medication if normotensive T2DM - Monitor blood sugar - ISS as needed, adjust with exercise Hx of sleep apnea - Does not tolerate CPAP, uses 2L O2 NC at night - Baseline 2L Hematuria on 08/24/2022 -Hold anticoagulation and check urine UTI Pseudomonas Plan: Consult Cardiology Home meds O2 Monitor closely 08/22/2022: Patient doing well 08/23/2022: Eliquis 08/24/2022: Hold anticoagulation Check UA 08/25/2022: Change abx to Cipro and await UCx 08/26/2022: F/U on UCx Monitor closely 08/27/2022: Complete abx Hold OAC until UTI treated 08/28/2022: Monitor HR Appreciated Dr Barnes 08/29/2022: Restarted OAC yesterday Complete abx for UTI 08/30/2022: Complete abx (1) COPD exacerbation DAYANA GABRIEL DO Aug 30, 2022 06:47
[2022-08-30 07:43] VITALS: BP 122/69
[2022-08-30] MEDS: CIPROFLOXACIN 500 MG (CIPRO) TABLET PO SCH ×2 (08:00→19:54)
[2022-08-30] MEDS: PANTOPRAZOLE 40 MG (PROTONIX) TAB PO SCH (08:00)
[2022-08-30] MEDS: APIXABAN 5 MG (ELIQUIS) TABLET PO SCH ×2 (08:01→19:54)
[2022-08-30] MEDS: meTOprolol TARTRATE 25 MG (LOPRESSOR) TABLET PO SCH ×3 (08:01→19:54)
[2022-08-30] MEDS: predniSONE 10 MG TAB PO SCH (08:01)
[2022-08-30] MEDS: ASPIRIN 81 MG CHEW (CHILDREN'S ASA) PO SCH (08:01)
[2022-08-30] MEDS: SILDENAFIL 20 MG (REVATIO) TAB PO SCH (08:01)
[2022-08-30] MEDS: SENNA W/DOCUSATE (SENOKOT S) TABLET PO SCH ×2 (08:02→19:55)
[2022-08-30] MEDS: polyethylene glycoL POWDER 17 GM (MIRALAX) PACK PO SCH ×2 (08:02→19:55)
[2022-08-30] MEDS: DOCUSATE SODIUM 100 MG (COLACE) CAP PO SCH ×2 (08:02→19:54)
[2022-08-30] MEDS: UMECLIDINIUM BROMIDE (INCRUSE ELLIPTA) 7'S IH SCH (08:14)
--- NOTE | 2022-08-30 12:28 | Physical Therapy Daily Note ---
PT Daily Note-Current Subjective Pt sitting in recliner upon arrival. Pt agrees to PT. Pain Location: No Pain Reported Section J - Health Conditions 1. Rarely or not at all 2. Occasionally 3. Frequently 4. Almost constantly 8. Unable to answer Pain Effect on Sleep: 1 Pain Interference with Therapy: 1 Pain Interference w/Day-to-Day: 1 Mental Status Patient Orientation: Person, Place, Situation Attachments: Oxygen (4L in room) Transfers SCALE: Activities may be completed with or without assistive devices. 5-Gkpjsltqaj-fapxrad completes the activity by him/herself with no assistance from a helper. 5-Set-up or Clean-up Assistance-helper sets up or cleans up; patient completes activity. [place] assists only prior to or following the activity. 4-Supervision or Touching Assistance-helper provides verbal cues and/or touching/steadying and/or contact guard assistance as patient completes activity. Assistance may be provided throughout the activity or intermittently. 3-Partial/Moderate Assistance-helper does LESS THAN HALF the effort. [place] lifts, holds or supports trunk or limbs, but provides less than half the effort. 2-Substantial/Maximal Assistance-helper does MORE THAN HALF the effort. [place] lifts or holds trunk or limbs and provides more than half the effort. 2-Jklluwuza-gocvij does ALL the effort. Patient does none of the effort to complete the activity. Or, the assistance of 2 or more helpers is required for the patient to complete the activity. If activity was not attempted, code reason: 7-Patient Refused. 9-Not Applicable-not attempted and the patient did not perform the activity before the current illness, exacerbation or injury. 10-Not Attempted due to Environmental Limitations-(lack of equipment, weather restraints, etc.). 88-Not Attempted due to Medical Conditions or Safety Concerns. Sit to Stand (QC): 5 Weight Bearing Full Weight Bearing Full Weight Bearing Gait Training Does the Patient Walk?: Yes Distance: 60', 125' Walk 10 feet (QC): 5 Walk 50 ft with 2 Turns(QC): 5 Walk 150 ft (QC): 5 Gait Assistive Device: FWW Treatments Pt TF to standing and amb. in hallway. Pt takes RB. O2 is taken as pt demonstrates SOA. O2 is 92%. Pt amb. in hallway after RB then returns to room to rest in recliner at end of tx. Pt again demonstrates SOA. After resting in recliner for a couple minutes, pt recovers. Pt uses urinal before AGRICULTURAL RESEARCH ENGINEER leaves at end of tx. All needs met, call light in hand. Assessment Current Status: Good Progress O2 drops after amb. but recovery happens quicker. PT Short Term Goals Short Term Goals Time Frame: Aug 28, 2022 Sit to stand: 4 Chair/hlt-ct-vsvlq transfer: 4 Walk 10 feet: 4 Walk 50 feet with two turns: 4 Walk 150 feet: 4 PT Artillery Maintenance Supervisor Goals Artillery Maintenance Supervisor Goals PT Jail Goals Time Frame: Sep 04, 2022 Roll Left & Right (QC): 6 Sit to Lying (QC): 6 Lying-Sitting on Side/Bed(QC): 6 Sit to Stand (QC): 6 Chair/Egq-zf-Yopga Xfer(QC): 6 Toilet Transfer (QC): 6 Car Transfer (QC): 6 Does the Patient Walk: Yes Walk 10 feet (QC): 6 Walk 50ft with 2 Turns (QC): 6 Walk 150 ft (QC): 6 Walking 10ft on Uneven Surface: 6 1 Step (curb) (QC): 4 (SBA) 4 Steps (QC): 4 (SBA) 12 Steps (QC): 88 Picking up an Object (QC): 6 Wheel 50 feet with 2 turns (QC: 9 Wheel 150 feet: 9 PT Plan Problem List Problem List: Activity Tolerance Treatment/Plan Treatment Plan: Continue Plan of Care Treatment Plan: Bed Mobility, Education, Functional Activity Cece, Functional Strength, Group Therapy, Gait, Safety, Therapeutic Exercise, Transfers Treatment Duration: Sep 04, 2022 Frequency: At least 5 of 7 days/Wk (IRF) Estimated Hrs Per Day: 1.5 hours per day Patient and/or Family Agrees t: Yes Time Time In: 1142 Time Out: 1202 DATE: Aug 30, 2022 Total Billed Treatment Time: 20 Total Billed Treatment 1, GT (20m) MANNY NÚÑEZ AGRICULTURAL RESEARCH ENGINEER Aug 30, 2022 12:28
[2022-08-30 13:13] VITALS: BP 103/68
[2022-08-30 19:42] VITALS: BP 117/68
[2022-08-30] MEDS: MELATONIN 3 MG TABLET PO PRN (19:54)
[2022-08-30] MEDS: eZETimibe 10 MG (ZETIA) TABLET PO SCH (19:54)
[2022-08-31] MEDS: MULTIVIT W/MINERALS TAB (THERAGRAN M) PO SCH (05:07)
[2022-08-31 07:30] VITALS: BP 109/73
[2022-08-31] MEDS: SILDENAFIL 20 MG (REVATIO) TAB PO SCH (07:57)
[2022-08-31] MEDS: ASPIRIN 81 MG CHEW (CHILDREN'S ASA) PO SCH (07:57)
[2022-08-31] MEDS: APIXABAN 5 MG (ELIQUIS) TABLET PO SCH ×2 (07:57→20:27)
[2022-08-31] MEDS: polyethylene glycoL POWDER 17 GM (MIRALAX) PACK PO SCH ×2 (07:58→19:41)
[2022-08-31] MEDS: PANTOPRAZOLE 40 MG (PROTONIX) TAB PO SCH (07:58)
[2022-08-31] MEDS: DOCUSATE SODIUM 100 MG (COLACE) CAP PO SCH ×2 (07:58→19:42)
[2022-08-31] MEDS: SENNA W/DOCUSATE (SENOKOT S) TABLET PO SCH ×2 (07:58→19:41)
[2022-08-31] MEDS: CIPROFLOXACIN 500 MG (CIPRO) TABLET PO SCH ×2 (07:58→20:26)
[2022-08-31] MEDS: predniSONE 10 MG TAB PO SCH (07:58)
[2022-08-31] MEDS: meTOprolol TARTRATE 25 MG (LOPRESSOR) TABLET PO SCH ×3 (07:58→20:27)
--- NOTE | 2022-08-31 08:09 | PM&R Progress Note ---
Subjective HPI/CC On Admission Date Seen by Provider: Aug 31, 2022 Time Seen by Provider: 12:00 Subjective/Events-last exam 08/31/2022: Patient doing really well No concerns Heart rate from atrial fibrillation has been slightly elevated 08/30/2022: Improved status Always a bit dyspneic but no issues currently Eating well BM+ 08/29/2022: Doing well today Improved overall Pulse controlled No falls BM+ No hematuria Restarted OAC yesterday 08/28/2022: Doing well except tachycardia of AF Dr Barnes adjusted meds No other issues DC Thursday08/27/2022: Patient doing well Will extend stay by 2 days if ok with the patient in case he can improve Desat occurs with activity 08/26/2022: Improved status Cipro maintained for UTI No pain reported O2 sat stable 08/25/2022: Hematuria improved No pain reported Holding OAC UTI being treated with Cipro until final Cx since it appears to be Pseudomonas. No h/o UTI per patient 08/24/2022: Patient doing pretty well Moving around pretty well Hematuria noted so we will hold Eliquis Hematuria is likely why he was not on anticoagulation to begin with with a history of chronic A. fib 08/23/2022: Improved status Onset AF on Tely so Eliquis started by Cardiology Monitoring closely 08/22/2022: Patient doing well Walking well with therapy Still very weak Maintained on oxygen Desaturation noted with activity Review of Systems General: Fatigue, Malaise Objective Exam Vital Signs Vital Signs Date Time Temp Pulse Resp B/P (MAP) Pulse Ox O2 Delivery O2 Flow Rate FiO2 08/31/22 10:40 97 Nasal Cannula 5.00 08/31/22 09:02 110 20 116/72 (87) 08/31/22 07:30 36.5 Capillary Refill : General Appearance: No Apparent Distress, WD/WN, Chronically ill, Obese HEENT: PERRL/EOMI, Normal ENT Inspection, Pharynx Normal Neck: Full Range of Motion, Normal Inspection, Non Tender, Supple, Carotid Bruit Respiratory: Chest Non Tender, Lungs Clear, Normal Breath Sounds, No Accessory Muscle Use, No Respiratory Distress Cardiovascular: Regular Rate, Rhythm, No Edema, No Gallop, No JVD, Normal Peripheral Pulses, Systolic Murmur Gastrointestinal: Normal Bowel Sounds, No Organomegaly, No Pulsatile Mass, Non Tender, Soft Back: Normal Inspection, No CVA Tenderness, No Vertebral Tenderness Extremity: Normal Capillary Refill, Normal Inspection, Normal Range of Motion, Non Tender, No Calf Tenderness, No Pedal Edema Neurologic/Psychiatric: Alert, Oriented x3, tool designer II-XII Norm as Tested, Abnormal Gait, Depressed Affect, Motor Weakness (generalized weakness) Skin: Normal Color, Warm/Dry Lymphatic: No Adenopathy Results/Procedures Lab Patient resulted labs reviewed. FIM Transfers Therapy Code Descriptions/Definitions Functional [place] Measure: 0=Not Assessed/NA 4=Minimal Assistance 1=Total Assistance 5=Supervision or Setup 2=Maximal Assistance 6=Modified [place] 3=Moderate Assistance 7=Complete IndependenceSCALE: Activities may be completed with or without assistive devices. 5-Rtyuylesoh-fjhpzvn completes the activity by him/herself with no assistance from a helper. 5-Set-up or Clean-up Assistance-helper sets up or cleans up; patient completes activity. [place] assists only prior to or following the activity. 4-Supervision or Touching Assistance-helper provides verbal cues and/or touching/steadying and/or contact guard assistance as patient completes activity. Assistance may be provided throughout the activity or intermittently. 3-Partial/Moderate Assistance-helper does LESS THAN HALF the effort. [place] lifts, holds or supports trunk or limbs, but provides less than half the effort. 2-Substantial/Maximal Assistance-helper does MORE THAN HALF the effort. [place] lifts or holds trunk or limbs and provides more than half the effort. 8-Siiaovswl-fhkcyw does ALL the effort. Patient does none of the effort to complete the activity. Or, the assistance of 2 or more helpers is required for the patient to complete the activity. If activity was not attempted, code reason: 7-Patient Refused. 9-Not Applicable-not attempted and the patient did not perform the activity before the current illness, exacerbation or injury. 10-Not Attempted due to Environmental Limitations-(lack of equipment, weather restraints, etc.). 88-Not Attempted due to Medical Conditions or Safety Concerns. Roll Left to Right (QC): 6 Sit to Lying (QC): 6 Sit to Stand (QC): 5 Chair/Iyw-ee-Nlbay Xfer(QC): 6 Car Transfer (QC): 4 Gait Training Does the Patient Walk?: Yes Distance: 60', 125' Walk 10 feet (QC): 5 Walk 50 ft with 2 Turns(QC): 5 Walk 150 ft (QC): 5 Walking 10ft/uneven surface-QC: 4 Gait Persons Needed: 1 Gait Assistive Device: FWW Wheelchair Training Does the Pt Use a Wheelchair?: Yes Distance: 150' Wheel 50 ft with 2 turns (QC): 3 Wheel 150 ft (QC): 3 Type of Wheelchair: Manual Stair Training #of Steps: 1 1 Step (curb) (QC): 4 4 Steps (QC): 88 12 Steps (QC): 88 Balance Picking up an Object (QC): 4 (CGA using a habitat management coordinator) ADL-Treatment Eating (QC): 6 Oral Hygiene (QC): 5 Shower/Bathe Self (QC): 4 (SBA) Upper Body Dressing (QC): 5 Lower Body Dressing (QC): 4 (VCs for continuation of task) On/Off Footwear (QC): 5 Toileting Hygiene (QC): 4 (SBA) Toilet Transfer (QC): 4 (SBA) Assessment/Plan Assessment and Plan Assess & Plan/Chief Complaint Assessment/Plan: Debility due to illness - Inpatient rehab - PT/OT eval and treat Atrial fibrillation (Follows with Dr. Carpenter) - AV block s/p pacemaker placement; rate and rhythm controlled. 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) - Recent exacerbation - on 2L baseline, currently requiring more - continue incruse ellipta (LAMA) - DuoNebs PRN Pulmonary Fibrosis (diagnosed 3 months ago) - on sildenafil 20 - As above for COPD treatment PRN Urinary incontinence - Hodgson previous - Not currently taking reductase inhibitors/alpha blockers - Bladder scan for post void residual Hypertension - Hold home medication if normotensive T2DM - Monitor blood sugar - ISS as needed, adjust with exercise Hx of sleep apnea - Does not tolerate CPAP, uses 2L O2 NC at night - Baseline 2L Hematuria on 08/24/2022 -Hold anticoagulation and check urine UTI Pseudomonas Plan: Consult Cardiology Home meds O2 Monitor closely 08/22/2022: Patient doing well 08/23/2022: Eliquis 08/24/2022: Hold anticoagulation Check UA 08/25/2022: Change abx to Cipro and await UCx 08/26/2022: F/U on UCx Monitor closely 08/27/2022: Complete abx Hold OAC until UTI treated 08/28/2022: Monitor HR Appreciated Dr Barnes 08/29/2022: Restarted OAC yesterday Complete abx for UTI 08/30/2022: Complete abx 08/31/2022: Complete antibiotics today (1) COPD exacerbation DAYANA GABRIEL DO Aug 31, 2022 08:09
[2022-08-31 09:02] VITALS: BP 116/72
[2022-08-31] MEDS: UMECLIDINIUM BROMIDE (INCRUSE ELLIPTA) 7'S IH SCH (10:39)
[2022-08-31 13:18] VITALS: BP 125/75
[2022-08-31 19:55] VITALS: BP 114/59
[2022-08-31] MEDS: eZETimibe 10 MG (ZETIA) TABLET PO SCH (20:27)
--- NOTE | 2022-09-01 05:21 | PM&R Progress Note ---
Subjective HPI/CC On Admission Date Seen by Provider: Sep 01, 2022 Time Seen by Provider: 08:30 Subjective/Events-last exam 09/01/2022: Having a bit more labored breathing today IV steroids ordered along with Lasix per Dr Barnes Monitoring closely Home O2 eval completed for DC tomorrow if it is not delayed 08/31/2022: Patient doing really well No concerns Heart rate from atrial fibrillation has been slightly elevated 08/30/2022: Improved status Always a bit dyspneic but no issues currently Eating well BM+ 08/29/2022: Doing well today Improved overall Pulse controlled No falls BM+ No hematuria Restarted OAC yesterday 08/28/2022: Doing well except tachycardia of AF Dr Barnes adjusted meds No other issues DC Thursday08/27/2022: Patient doing well Will extend stay by 2 days if ok with the patient in case he can improve Desat occurs with activity 08/26/2022: Improved status Cipro maintained for UTI No pain reported O2 sat stable 08/25/2022: Hematuria improved No pain reported Holding OAC UTI being treated with Cipro until final Cx since it appears to be Pseudomonas. No h/o UTI per patient 08/24/2022: Patient doing pretty well Moving around pretty well Hematuria noted so we will hold Eliquis Hematuria is likely why he was not on anticoagulation to begin with with a history of chronic A. fib 08/23/2022: Improved status Onset AF on Tely so Eliquis started by Cardiology Monitoring closely 08/22/2022: Patient doing well Walking well with therapy Still very weak Maintained on oxygen Desaturation noted with activity Review of Systems General: Fatigue, Malaise Objective Exam Vital Signs Vital Signs Date Time Temp Pulse Resp B/P (MAP) Pulse Ox O2 Delivery O2 Flow Rate FiO2 09/01/22 20:55 36.8 109 28 127/76 (93) 91 High Flow N/C 8.00 Capillary Refill : General Appearance: No Apparent Distress, WD/WN, Chronically ill, Obese HEENT: PERRL/EOMI, Normal ENT Inspection, Pharynx Normal Neck: Full Range of Motion, Normal Inspection, Non Tender, Supple, Carotid Bruit Respiratory: Chest Non Tender, Lungs Clear, Normal Breath Sounds, No Accessory Muscle Use, No Respiratory Distress Cardiovascular: Regular Rate, Rhythm, No Edema, No Gallop, No JVD, Normal Peripheral Pulses, Systolic Murmur Gastrointestinal: Normal Bowel Sounds, No Organomegaly, No Pulsatile Mass, Non Tender, Soft Back: Normal Inspection, No CVA Tenderness, No Vertebral Tenderness Extremity: Normal Capillary Refill, Normal Inspection, Normal Range of Motion, Non Tender, No Calf Tenderness, No Pedal Edema Neurologic/Psychiatric: Alert, Oriented x3, diffusion operator II-XII Norm as Tested, Abnormal Gait, Depressed Affect, Motor Weakness (generalized weakness) Skin: Normal Color, Warm/Dry Lymphatic: No Adenopathy Results/Procedures Lab Laboratory Tests 09/01/22 05:30 Patient resulted labs reviewed. FIM Transfers Therapy Code Descriptions/Definitions Functional [place] Measure: 0=Not Assessed/NA 4=Minimal Assistance 1=Total Assistance 5=Supervision or Setup 2=Maximal Assistance 6=Modified [place] 3=Moderate Assistance 7=Complete IndependenceSCALE: Activities may be completed with or without assistive devices. 8-Ootvkgujvn-pdmdqnc completes the activity by him/herself with no assistance from a helper. 5-Set-up or Clean-up Assistance-helper sets up or cleans up; patient completes activity. [place] assists only prior to or following the activity. 4-Supervision or Touching Assistance-helper provides verbal cues and/or touching/steadying and/or contact guard assistance as patient completes activi ty. Assistance may be provided throughout the activity or intermittently. 3-Partial/Moderate Assistance-helper does LESS THAN HALF the effort. [place] lifts, holds or supports trunk or limbs, but provides less than half the effort. 2-Substantial/Maximal Assistance-helper does MORE THAN HALF the effort. [place] lifts or holds trunk or limbs and provides more than half the effort. 8-Aahlxhsly-anpoye does ALL the effort. Patient does none of the effort to complete the activity. Or, the assistance of 2 or more helpers is required for the patient to complete the activity. If activity was not attempted, code reason: 7-Patient Refused. 9-Not Applicable-not attempted and the patient did not perform the activity before the current illness, exacerbation or injury. 10-Not Attempted due to Environmental Limitations-(lack of equipment, weather restraints, etc.). 88-Not Attempted due to Medical Conditions or Safety Concerns. Roll Left to Right (QC): 6 Sit to Lying (QC): 6 Sit to Stand (QC): 5 Chair/Cxe-js-Rjtba Xfer(QC): 6 Car Transfer (QC): 4 Gait Training Does the Patient Walk?: Yes Distance: 60', 125' Walk 10 feet (QC): 5 Walk 50 ft with 2 Turns(QC): 5 Walk 150 ft (QC): 5 Walking 10ft/uneven surface-QC: 4 Gait Persons Needed: 1 Gait Assistive Device: FWW Wheelchair Training Does the Pt Use a Wheelchair?: Yes Distance: 150' Wheel 50 ft with 2 turns (QC): 3 Wheel 150 ft (QC): 3 Type of Wheelchair: Manual Stair Training #of Steps: 1 1 Step (curb) (QC): 4 4 Steps (QC): 88 12 Steps (QC): 88 Balance Picking up an Object (QC): 4 (CGA using a thermometer tester) ADL-Treatment Eating (QC): 6 Oral Hygiene (QC): 5 Shower/Bathe Self (QC): 4 (SBA) Upper Body Dressing (QC): 5 Lower Body Dressing (QC): 4 (VCs for continuation of task) On/Off Footwear (QC): 5 Toileting Hygiene (QC): 4 (SBA) Toilet Transfer (QC): 4 (SBA) Assessment/Plan Assessment and Plan Assess & Plan/Chief Complaint Assessment/Plan: Debility due to illness - Inpatient rehab - PT/OT eval and treat Atrial fibrillation (Follows with Dr. Carpenter) - AV block s/p pacemaker placement; rate and rhythm controlled. 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) - Recent exacerbation - on 2L baseline, currently requiring more - continue incruse ellipta (LAMA) - DuoNebs PRN Pulmonary Fibrosis (diagnosed 3 months ago) - on sildenafil 20 - As above for COPD treatment PRN Urinary incontinence - [place] previous - Not currently taking reductase inhibitors/alpha blockers - Bladder scan for post void residual Hypertension - Hold home medication if normotensive T2DM - Monitor blood sugar - ISS as needed, adjust with exercise Hx of sleep apnea - Does not tolerate CPAP, uses 2L O2 NC at night - Baseline 2L Hematuria on 08/24/2022 -Hold anticoagulation and check urine UTI Pseudomonas Plan: Consult Cardiology Home meds O2 Monitor closely 08/22/2022: Patient doing well 08/23/2022: Eliquis 08/24/2022: Hold anticoagulation Check UA 08/25/2022: Change abx to Cipro and await UCx 08/26/2022: F/U on UCx Monitor closely 08/27/2022: Complete abx Hold OAC until UTI treated 08/28/2022: Monitor HR Appreciated Dr Barnes 08/29/2022: Restarted OAC yesterday Complete abx for UTI 08/30/2022: Complete abx 08/31/2022: Complete antibiotics today 09/01/2022: IV steroids (1) COPD exacerbation DAYANA GABRIEL DO Sep 01, 2022 05:21
[2022-09-01 05:45] LABS: HEMOGLOBIN 14.3 g/dL (13.3-17.7); MEAN CORPUSCULAR VOLUME 96 fL (80-99)
[2022-09-01 05:47] LABS: BASOPHILS % (AUTO) 0 % (0-10); EOSINOPHILS # (AUTO) 0.1 10^3/uL (0.0-0.3); EOSINOPHILS % (AUTO) 1 % (0-10); HEMATOCRIT 43 % (40-54); LYMPHOCYTES # (AUTO) 1.6 10^3/uL (1.0-4.0); LYMPHOCYTES % (AUTO) 27 % (12-44); MEAN CORPUSCULAR HEMOGLOBIN 32 pg (25-34); MEAN CORPUSCULAR HGB CONC 33 g/dL (32-36); MEAN PLATELET VOLUME 9.7 fL (9.0-12.2); MONOCYTES # (AUTO) 0.8 10^3/uL (0.0-1.0); MONOCYTES % (AUTO) 14 % (0-12); NEUTROPHILS # (AUTO) 3.3 10^3/uL (1.8-7.8); NEUTROPHILS % (AUTO) 56 % (42-75); PLATELET COUNT 135 10^3/uL (130-400); WHITE BLOOD COUNT 5.8 10^3/uL (4.3-11.0)
[2022-09-01 06:02] LABS: ALBUMIN 3.4 GM/DL (3.2-4.5); POTASSIUM 3.9 MMOL/L (3.6-5.0)
[2022-09-01 06:04] LABS: CALCIUM 9.2 MG/DL (8.5-10.1)
[2022-09-01 06:05] LABS: TOTAL PROTEIN 6.7 GM/DL (6.4-8.2)
[2022-09-01 06:07] LABS: BILIRUBIN,TOTAL 0.8 MG/DL (0.1-1.0)
[2022-09-01 06:08] LABS: CREATININE SERUM 0.98 MG/DL (0.60-1.30)
[2022-09-01] MEDS: MULTIVIT W/MINERALS TAB (THERAGRAN M) PO SCH (06:26)
[2022-09-01 07:18] VITALS: BP 127/84
[2022-09-01] MEDS: APIXABAN 5 MG (ELIQUIS) TABLET PO SCH ×2 (07:42→20:38)
[2022-09-01] MEDS: PANTOPRAZOLE 40 MG (PROTONIX) TAB PO SCH (07:42)
[2022-09-01] MEDS: meTOprolol TARTRATE 25 MG (LOPRESSOR) TABLET PO SCH ×3 (07:42→20:37)
[2022-09-01] MEDS: predniSONE 10 MG TAB PO SCH (07:42)
[2022-09-01] MEDS: SENNA W/DOCUSATE (SENOKOT S) TABLET PO SCH ×2 (07:42→20:45)
[2022-09-01] MEDS: ASPIRIN 81 MG CHEW (CHILDREN'S ASA) PO SCH (07:42)
[2022-09-01] MEDS: SILDENAFIL 20 MG (REVATIO) TAB PO SCH (07:42)
[2022-09-01] MEDS: polyethylene glycoL POWDER 17 GM (MIRALAX) PACK PO SCH ×2 (08:28→20:45)
[2022-09-01] MEDS: DOCUSATE SODIUM 100 MG (COLACE) CAP PO SCH ×2 (08:28→20:44)
--- NOTE | 2022-09-01 08:45 | Progress Note - Cardiology ---
Cardiology SOAP Progress Note Subjective: Sitting up in recliner at the bedside SOB unchanged No c/o CP or palpitations Objective: I&O/Vital Signs 09/01/22 09/01/22 09/01/22 09/01/22 07:00 07:18 09:00 09:16 Temp 36.6 Pulse 111 116 107 Resp 28 24 B/P (MAP) 127/84 (98) 110/69 (83) Pulse Ox 90 94 O2 Delivery Nasal Cannula Nasal Cannula Nasal Cannula O2 Flow Rate 4.00 4.00 4.00 09/01/22 09/01/22 09/01/22 10:00 11:05 14:55 Pulse 98 Resp 22 Pulse Ox 94 92 97 O2 Delivery Nasal Cannula Nasal Cannula Nasal Cannula O2 Flow Rate 5.00 4.00 6.00 09/01/22 00:00 Intake Total 1337 ml Output Total 200 ml Balance 1137 ml Constitutional: AAO x 3, well-developed, well-nourished Respiratory: chest expansion is symmetric, chest is bilaterally symmetric, other Cardiovascular: regular rate-rhythm, S1 and S2 Gastrointestional: soft, audible bowel sounds Extremities: no lower extremity edema bilateral Neurologic/Psychiatric: other Skin: No rash on exposed areas, No ulcerations on exposed areas Results/Procedures: Labs Laboratory Tests 09/01/22 05:30: White Blood Count 5.8, Red Blood Count 4.48, Hemoglobin 14.3, Hematocrit 43, Mean Corpuscular Volume 96, Mean Corpuscular Hemoglobin 32, Mean Corpuscular Hemoglobin Concent 33, Red Cell Distribution Width 15.2H, Platelet Count 135, Mean Platelet Volume 9.7, Immature Granulocyte % (Auto) 2, Neutrophils (%) (Auto) 56, Lymphocytes (%) (Auto) 27, Monocytes (%) (Auto) 14H, Eosinophils (%) (Auto) 1, Basophils (%) (Auto) 0, Neutrophils # (Auto) 3.3, Lymphocytes # (Auto) 1.6, Monocytes # (Auto) 0.8, Eosinophils # (Auto) 0.1, Basophils # (Auto) 0.0, Immature Granulocyte # (Auto) 0.1, Percent Immature Platelet Fraction 1.9, Sodium Level 138, Potassium Level 3.9, Chloride Level 102, Carbon Dioxide Level 26, Anion Gap 10, Blood Urea Nitrogen 15, Creatinine 0.98, Estimat Glomerular Filtration Rate 80, BUN/Creatinine Ratio 15, Glucose Level 126H, Calcium Level 9.2, Corrected Calcium 9.7, Total Bilirubin 0.8, Aspartate Amino Transf (AST/SGOT) 37H, Alanine Aminotransferase (ALT/SGPT) 74H, Alkaline Phosphatase 70, B-Type Natriuretic Peptide 37.5, Total Protein 6.7, Albumin 3.4 09/01/22 15:15: Blood Gas Puncture Site UNK, Blood Gas Patient Temperature 36.3, Arterial Blood pH 7.41, Arterial Blood Partial Pressure CO2 41, Arterial Blood Partial Pressure O2 87, Arterial Blood HCO3 26, Arterial Blood Total CO2 27.0, Arterial Blood Oxygen Saturation 98, Arterial Blood Base Excess 1.4, Andrea Test YES-POS, Blood Gas Ventilator Setting NO, Blood Gas Inspired Oxygen 5% Microbiology 08/24/22 Urine Culture - Final, Complete Pseudomonas aeruginosa Pseudomonas aeruginosa#2 A/P: Assessment: Recent hospitalization at [facility] in [place], [place] d/t resp failure d/t pneumonia and Influenza A on 07-21-22 - transferred to [facility] in [place], [place] on 07-31-22 SSS. PAF with controlled vent response seen on tele of 08/23/22 (CHADSVASc score 6) - s/p pacemaker in 2019, followed by Dr Carpenter at [facility] - had been on apixaban for stroke prophylaxis since 08/23/22 - stopped (by medical services) d/t episode of hematuria - resumed on 08-28-22 UTI - management per medical services HTN HLD Pulmonary HTN - on sildenafil and chronic oxygen at home (prior to admission) - followed by Dr. Kaur of pulmonary services in [place], [place] CARLA DM 2 H/o previous CVA - Alexa2016 - treated at [facility] - per pt source undetermined - no residual COPD H/o tobaccoism - quit 30 yrs ago Plan: * HR improved with addition of calcium channel keaton * Complex management of OAC and antiplatelet agents as described below * Plavix was stopped after starting Eliquis (to reduce risk fo bleeding) * Eliquis stopped per medical services d/t episode of hematuria - pt denies any further episodes of hematuria - Dr. Rust has allowed Eliquis beginning 08/28/22 * continue ASA * monitor labs from time to time * UTI - management per medical services EMETERIO HUYNH Sep 01, 2022 08:45
[2022-09-01 09:00] VITALS: BP 110/69
--- NOTE | 2022-09-01 09:46 | Progress Note - Cardiology ---
Cardiology SOAP Progress Note Subjective: No cp or palp or syncope Shortness of breath with mild to mod exertion Gen weakness slowly improving No n/v/d Objective: I&O/Vital Signs 09/01/22 09/01/22 09/01/22 09/01/22 01:00 07:00 07:18 09:00 Temp 36.6 Pulse 94 111 116 107 Resp 28 24 B/P (MAP) 127/84 (98) 110/69 (83) Pulse Ox 90 94 O2 Delivery Nasal Cannula Nasal Cannula O2 Flow Rate 4.00 4.00 09/01/22 09:16 O2 Delivery Nasal Cannula O2 Flow Rate 4.00 09/01/22 00:00 Intake Total 1337 ml Output Total 200 ml Balance 1137 ml Constitutional: AAO x 3, well-developed, well-nourished Respiratory: chest expansion is symmetric, chest is bilaterally symmetric, other Cardiovascular: regular rate-rhythm, S1 and S2 Gastrointestional: soft, audible bowel sounds Extremities: no lower extremity edema bilateral Neurologic/Psychiatric: other Skin: No rash on exposed areas, No ulcerations on exposed areas Results/Procedures: Labs Laboratory Tests 09/01/22 05:30: White Blood Count 5.8, Red Blood Count 4.48, Hemoglobin 14.3, Hematocrit 43, Mean Corpuscular Volume 96, Mean Corpuscular Hemoglobin 32, Mean Corpuscular Hemoglobin Concent 33, Red Cell Distribution Width 15.2H, Platelet Count 135, Mean Platelet Volume 9.7, Immature Granulocyte % (Auto) 2, Neutrophils (%) (Auto) 56, Lymphocytes (%) (Auto) 27, Monocytes (%) (Auto) 14H, Eosinophils (%) (Auto) 1, Basophils (%) (Auto) 0, Neutrophils # (Auto) 3.3, Lymphocytes # (Auto) 1.6, Monocytes # (Auto) 0.8, Eosinophils # (Auto) 0.1, Basophils # (Auto) 0.0, Immature Granulocyte # (Auto) 0.1, Percent Immature Platelet Fraction 1.9, Sodium Level 138, Potassium Level 3.9, Chloride Level 102, Carbon Dioxide Level 26, Anion Gap 10, Blood Urea Nitrogen 15, Creatinine 0.98, Estimat Glomerular Fi ltration Rate 80, BUN/Creatinine Ratio 15, Glucose Level 126H, Calcium Level 9. 2, Corrected Calcium 9.7, Total Bilirubin 0.8, Aspartate Amino Transf (AST/SGOT) 37H, Alanine Aminotransferase (ALT/SGPT) 74H, Alkaline Phosphatase 70, Total Protein 6.7, Albumin 3.4 Microbiology 08/24/22 Urine Culture - Final, Complete Pseudomonas aeruginosa Pseudomonas aeruginosa#2 Laboratory Tests 09/01/22 05:30 A/P: Assessment: Recent hospitalization at [facility] in [place], [place] d/t resp failure d/t pneumonia and Influenza A on 07-21-22 - transferred to [facility] in [place], [place] on 07-31-22 SSS. PAF with controlled vent response seen on tele of 08/23/22 (CHADSVASc score 6) - s/p pacemaker in 2019, followed by Dr Carpenter at [facility] - had been on apixaban for stroke prophylaxis since 08/23/22 - stopped (by medical services) d/t episode of hematuria - resumed on 08-28-22 UTI - management per medical services HTN HLD Pulmonary HTN - on sildenafil and chronic oxygen at home (prior to admission) - followed by Dr. Kaur of pulmonary services in [place], [place] CARLA DM 2 H/o previous CVA - Alexa 2016 - treated at [facility] - per pt source undetermined - no residual COPD H/o tobaccoism - quit 30 yrs ago Plan: * HR improved with addition of calcium channel keaton * Complex management of OAC and antiplatelet agents as described below * Plavix was stopped after starting Eliquis (to reduce risk fo bleeding) * Eliquis stopped per medical services d/t episode of hematuria - pt denies any further episodes of hematuria - Dr. Rust has allowed Eliquis beginning 08/28/22 * continue ASA * monitor labs from time to time * d/c tele EDUARDO LANE MD FACP FAC CCDS Sep 01, 2022 09:46
--- NOTE | 2022-09-01 11:01 | Occupational Ther Daily Note ---
OT Current Status-Daily Note Subjective Pt up in recliner, agreeable to OT Tx. Pt on 4L via NC at start of session, turned up to 6L per RN due to decrease in O2 saturation with minimal activity. Mental Status/Objective Patient Orientation: Normal For Age Attachments: Oxygen (4-6L NC) ADL-Treatment Therapy Code Descriptions/Definitions Functional [place] Measure: 0=Not Assessed/NA 4=Minimal Assistance 1=Total Assistance 5=Supervision or Setup 2=Maximal Assistance 6=Modified [place] 3=Moderate Assistance 7=Complete IndependenceSCALE: Activities may be completed with or without assistive devices. 2-Ezkolefuqs-wvucitp completes the activity by him/herself with no assistance from a helper. 5-Set-up or Clean-up Assistance-helper sets up or cleans up; patient completes activity. [place] assists only prior to or following the activity. 4-Supervision or Touching Assistance-helper provides verbal cues and/or touching/steadying and/or contact guard assistance as patient completes activity. Assistance may be provided throughout the activity or intermittently. 3-Partial/Moderate Assistance-helper does LESS THAN HALF the effort. [place] lifts, holds or supports trunk or limbs, but provides less than half the effort. 2-Substantial/Maximal Assistance-helper does MORE THAN HALF the effort. [place] lifts or holds trunk or limbs and provides more than half the effort. 3-Eafmpnblf-fdnfgk does ALL the effort. Patient does none of the effort to complete the activity. Or, the assistance of 2 or more helpers is required for the patient to complete the activity. If activity was not attempted, code reason: 7-Patient Refused. 9-Not Applicable-not attempted and the patient did not perform the activity before the current illness, exacerbation or injury. 10-Not Attempted due to Environmental Limitations-(lack of equipment, weather restraints, etc.). 88-Not Attempted due to Medical Conditions or Safety Concerns. Eating (QC): 6 Oral Hygiene (QC): 5 Shower/Bathe Self (QC): 4 (SBA) Upper Body Dressing (QC): 5 Lower Body Dressing (QC): 5 On/Off Footwear: 5 Toileting Hygiene (QC): 4 (SBA) Toilet Transfer (QC): 4 (SBA on/off BSC over toilet.) Other Treatment Pt up in recliner, agreeable to OT tx. Pt on 4L O2 via NC at rest, O2 saturation at 94%. Pt completed sponge bath at recliner, requests to use toilet. Pt used FWW to transfer into bathroom, SBA, OT managed O2 tubing. Pt's O2 saturation at 62%, O2 turned to 6L via NC per RN, pt required several minutes to return to 90%, then several more minutes to feel like he has recovered. Pt able to manage hygiene with SBA. Pt took seated rest break, then returned to recliner. O2 saturation at 63% on 6L via NC, taking several minutes to recover. Pt able to don UE/LE clothing with set up assistance and frequent rest breaks. After standing for pant hike, O2 saturation at 73%, taking several minutes to recover. Post tx, pt seated in recliner, call light in reach and all needs met. O2 saturation at 92% on 6L, RN aware Education OT Patient Education: Correct positioning, Modified ADL techniques, Progress toward Goal/Update tx plan, Purpose of tx/functional activities, Rehab process Teaching Recipient: Patient Teaching Methods: Discussion Response to Teaching: Verbalize Understanding OT Short Term Goals Short Term Goals Time Frame: Sep 05, 2022 Shower/bathe self: 5 Lower body dressin OT Nursing Home Goals Nursing Home Goals Time Frame: Sep 19, 2022 Acute change in mental status: 0 Inattention: 0 Disorganized thinkin Altered level of consciousness: 0 Eating (QC): 6 Oral Hygiene (QC): 6 Toileting Hygiene (QC): 6 Shower/Bathe Self (QC): 6 Upper Body Dressing (QC): 6 Lower Body Dressing (QC): 6 On/Off Footwear (QC): 6 Additional Goals: 1-Demonstrate ADL Tasks, 2-Verbalize Understanding, 3- ImproveStrength/Cece 1=Demonstrate adherence to instructed precautions during ADL tasks. 2=Patient will verbalize/demonstrate understanding of assistive devices/modifications for ADL. 3=Patient will improve strength/tolerance for activity to enable patient to perform ADL's. OT Education/Plan Problem List/Assessment Assessment: Decreased Activ Tolerance, Decreased UE Strength, Impaired I ADL's Discharge Recommendations Plan/Recommendations: Continue POC Treatment Plan/Plan of Care Patient would benefit from OT for education, treatment and training to promote independence in ADL's, mobility, safety and/or upper extremity function for ADL's. Plan of Care: ADL Retraining, Functional Mobility, Group Exercise/Act as Ind, UE Funct Exercise/Act Treatment Duration: Sep 19, 2022 Frequency: Modified Program (IRF) (14/02) Estimated Hrs Per Day: 1.5 hours per day (1-1.5 hours per day) Agreement: Yes Rehab Potential: Fair Time Start Time: 10:00 Stop Time: 11:00 DATE: Sep 01, 2022 Total Time Billed (hr/min): 60 Billed Treatment Time 1, ADL 4 LEONEL CARVALHO OT Sep 01, 2022 11:01
[2022-09-01] MEDS: UMECLIDINIUM BROMIDE (INCRUSE ELLIPTA) 7'S IH SCH (11:07)
--- NOTE | 2022-09-01 11:43 | Progress Note ---
ANDREINA MARKS 09/01/22 1142: Progress Note Patient is alert, oriented, and in no acute distress Denies any pain or concerns Last bowel movement was yesterday morning Voiding fine Weakness is improving Wearing nasal cannula oxygen 4L LYIAH GABRIEL DO 09/02/22 0518: Supervisory-Addendum Brief Verification & Attestation Participated in pt care: history, MDM, physical Personally performed: exam, history, MDM, supervision of care Care discussed with: Medical Student Procedures: n/a Results interpretation: Verified all documentation Verification and Attestation of Medical Student E/M Service A medical student performed and documented this service in my presence. I reviewed and verified all information documented by the medical student and made modifications to such information, when appropriate. I personally performed the physical exam and medical decision making. Liyah Gabriel, Sep 02, 2022,05:18 ANDREINA MARKS Sep 01, 2022 11:42 LIYAH GABRIEL DO Sep 02, 2022 05:18
--- NOTE | 2022-09-01 12:08 | Physical Therapy Daily Note ---
PT Daily Note-Current Subjective Pt sitting in recliner upon arrival. Pt agrees to PT for QC scoring for anticipated d/c tomorrow. Pain Location: No Pain Reported Section J - Health Conditions 1. Rarely or not at all 2. Occasionally 3. Frequently 4. Almost constantly 8. Unable to answer Pain Effect on Sleep: 1 Pain Interference with Therapy: 1 Pain Interference w/Day-to-Day: 1 Mental Status Patient Orientation: Person, Place, Situation Attachments: Oxygen (4L in room and 6L during tx) Transfers SCALE: Activities may be completed with or without assistive devices. 7-Qowevenlhq-stopjpa completes the activity by him/herself with no assistance from a helper. 5-Set-up or Clean-up Assistance-helper sets up or cleans up; patient completes activity. [place] assists only prior to or following the activity. 4-Supervision or Touching Assistance-helper provides verbal cues and/or touching/steadying and/or contact guard assistance as patient completes activity. Assistance may be provided throughout the activity or intermittently. 3-Partial/Moderate Assistance-helper does LESS THAN HALF the effort. [place] lifts, holds or supports trunk or limbs, but provides less than half the effort. 2-Substantial/Maximal Assistance-helper does MORE THAN HALF the effort. [place] lifts or holds trunk or limbs and provides more than half the effort. 8-Jgziphxnv-sehrff does ALL the effort. Patient does none of the effort to complete the activity. Or, the assistance of 2 or more helpers is required for the patient to complete the activity. If activity was not attempted, code reason: 7-Patient Refused. 9-Not Applicable-not attempted and the patient did not perform the activity before the current illness, exacerbation or injury. 10-Not Attempted due to Environmental Limitations-(lack of equipment, weather restraints, etc.). 88-Not Attempted due to Medical Conditions or Safety Concerns. Roll Left & Right (QC): 5 Sit to Lying (QC): 6 Lying to Sitting/Side of Bed(Q: 6 Sit to Stand (QC): 5 Chair/Oed-rj-Ojven Xfer(QC): 5 Toilet Transfer (QC): 5 Car Transfer (QC): 4 Weight Bearing Full Weight Bearing Full Weight Bearing Gait Training Does the Patient Walk?: Yes Distance: 75' x2 Walk 10 feet (QC): 5 Walk 50 ft with 2 Turns(QC): 5 Walk 150 ft (QC): 4 Walking 10ft/uneven surface-QC: 5 Gait Assistive Device: FWW Wheelchair Training Does the Pt Use a Wheelchair?: No Stair Training Stair Training: Handrails/: 2 handrails #of Steps: 2 1 Step (curb) (QC): 5 4 Steps (QC): 88 12 Steps (QC): 88 Stairs: Pattern: Step to Balance Picking up an Object (QC): 4 Treatments Pt completes QC scoring items listed above. O2 is monitored as pt demonstrates more SOA than usual. Pt returns to room to rest at end of tx. All needs met, call light in hand. Assessment Current Status: Poor Progress O2 monitored throughout tx. O2 drops to 76% after bed mobility is completed and drops to 67% after walking approx. 60' then completing 2 steps. Both times extended time to require. O2 is increased to 6L during tx to increase recovery time when O2 drops. Pt amb. approx. 60' (10' across varying surface) & 2 steps and rests in recliner pt's O2 drops to 67% again with extended recovery. PT Short Term Goals Short Term Goals Time Frame: Aug 28, 2022 Sit to stand: 4 Chair/sgj-eo-jrveh transfer: 4 Walk 10 feet: 4 Walk 50 feet with two turns: 4 Walk 150 feet: 4 PT Group Home Goals Sales Apprentice Goals PT Group Home Goals Time Frame: Sep 04, 2022 Roll Left & Right (QC): 6 Sit to Lying (QC): 6 Lying-Sitting on Side/Bed(QC): 6 Sit to Stand (QC): 6 Chair/Pcm-su-Eyvwa Xfer(QC): 6 Toilet Transfer (QC): 6 Car Transfer (QC): 6 Does the Patient Walk: Yes Walk 10 feet (QC): 6 Walk 50ft with 2 Turns (QC): 6 Walk 150 ft (QC): 6 Walking 10ft on Uneven Surface: 6 1 Step (curb) (QC): 4 (SBA) 4 Steps (QC): 4 (SBA) 12 Steps (QC): 88 Picking up an Object (QC): 6 Wheel 50 feet with 2 turns (QC: 9 Wheel 150 feet: 9 PT Plan Problem List Problem List: Activity Tolerance, Functional Strength Treatment/Plan Treatment Plan: Continue Plan of Care Treatment Plan: Bed Mobility, Education, Functional Activity Cece, Functional Strength, Group Therapy, Gait, Safety, Therapeutic Exercise, Transfers Treatment Duration: Sep 04, 2022 Frequency: At least 5 of 7 days/Wk (IRF) Estimated Hrs Per Day: 1.5 hours per day Patient and/or Family Agrees t: Yes Safety Risks/Education Patient Education: Safety Issues Teaching Recipient: Patient Teaching Methods: Discussion Response to Teaching: Verbalize Understanding Time Time In: 1100 Time Out: 1200 DATE: Sep 01, 2022 Total Billed Treatment Time: 60 Total Billed Treatment 1, FA x2 (30m) & GT x2 (30m) MANNY NÚÑEZ PTA Sep 01, 2022 12:08
--- NOTE | 2022-09-01 13:36 | Occupational Ther Daily Note ---
OT Current Status-Daily Note Subjective Pt in recliner, agreeable to OT Tx. Pt on 4L at rest, remained in mid 90%'s with UE seated exercises. ADL-Treatment Therapy Code Descriptions/Definitions Functional [place] Measure: 0=Not Assessed/NA 4=Minimal Assistance 1=Total Assistance 5=Supervision or Setup 2=Maximal Assistance 6=Modified [place] 3=Moderate Assistance 7=Complete IndependenceSCALE: Activities may be completed with or without assistive devices. 5-Yofjjrqzkf-oemegqo completes the activity by him/herself with no assistance from a helper. 5-Set-up or Clean-up Assistance-helper sets up or cleans up; patient completes activity. [place] assists only prior to or following the activity. 4-Supervision or Touching Assistance-helper provides verbal cues and/or touching/steadying and/or contact guard assistance as patient completes activity. Assistance may be provided throughout the activity or intermittently. 3-Partial/Moderate Assistance-helper does LESS THAN HALF the effort. [place] lifts, holds or supports trunk or limbs, but provides less than half the effort. 2-Substantial/Maximal Assistance-helper does MORE THAN HALF the effort. [place] lifts or holds trunk or limbs and provides more than half the effort. 6-Kuksvvydi-bfpysp does ALL the effort. Patient does none of the effort to complete the activity. Or, the assistance of 2 or more helpers is required for the patient to complete the activity. If activity was not attempted, code reason: 7-Patient Refused. 9-Not Applicable-not attempted and the patient did not perform the activity before the current illness, exacerbation or injury. 10-Not Attempted due to Environmental Limitations-(lack of equipment, weather restraints, etc.). 88-Not Attempted due to Medical Conditions or Safety Concerns. Other Treatment Pt in recliner, agreeable to OT tx. Pt participated in BIMs. In order to increase BUE Strength and activity tolerance, pt completed UE exercises using moderate resistance (red) theratubing. Pt completed x10 reps each of the following, with rest breaks between each exercise: shoulder flexion, elbow flexion/extension, and horizontal abduction. Pt's O2 saturation in mid 90s with seated UE exercises on 4L. Post tx, pt in recliner, call light in reach and all needs met. BIMS CAM BIMS Expression of Ideas and Wants: Without Difficulty Understanding Verbal Content: Understands Brief Interview/Mental Status: Yes IRF TAWANDA BIMS: IRF TAWANDA BIMS Response (Comments) Value Repitition of Three Words Three 3 Recalls Socks Yes, No Cue Required 2 Recalls Blue Yes, No Cue Required 2 Recalls Bed Yes, After Cueing 1 Year Correct 3 Month Accurate Within 5 Days 2 Day Correct 1 Total 14 Should Staff Asses. Mental St.: No CAM Mental Status Change/Baseline: 0 Inattention: 0 Disorganized thinkin Altered level of consciousness: 0 OT Short Term Goals Short Term Goals Time Frame: Sep 05, 2022 Shower/bathe self: 5 Lower body dressin OT Director Of Broadcast Goals Director Of Broadcast Goals Time Frame: Sep 19, 2022 Acute change in mental status: 0 Inattention: 0 Disorganized thinkin Altered level of consciousness: 0 Eating (QC): 6 Oral Hygiene (QC): 6 Toileting Hygiene (QC): 6 Shower/Bathe Self (QC): 6 Upper Body Dressing (QC): 6 Lower Body Dressing (QC): 6 On/Off Footwear (QC): 6 Additional Goals: 1-Demonstrate ADL Tasks, 2-Verbalize Understanding, 3- ImproveStrength/Cece 1=Demonstrate adherence to instructed precautions during ADL tasks. 2=Patient will verbalize/demonstrate understanding of assistive devices/ modifications for ADL. 3=Patient will improve strength/tolerance for activity to enable patient to perform ADL's. OT Education/Plan Problem List/Assessment Assessment: Decreased Activ Tolerance, Decreased UE Strength, Impaired I ADL's Discharge Recommendations Plan/Recommendations: Continue POC Treatment Plan/Plan of Care Patient would benefit from OT for education, treatment and training to promote independence in ADL's, mobility, safety and/or upper extremity function for ADL's. Plan of Care: ADL Retraining, Functional Mobility, Group Exercise/Act as Ind, UE Funct Exercise/Act Treatment Duration: Sep 19, 2022 Frequency: Modified Program (IRF) (14/02) Estimated Hrs Per Day: 1.5 hours per day (1-1.5 hours per day) Agreement: Yes Rehab Potential: Fair Time Start Time: 13:00 Stop Time: 13:30 DATE: Sep 01, 2022 Total Time Billed (hr/min): 30 Billed Treatment Time 1, EX 2 LEONEL CARVALHO OT Sep 01, 2022 13:36
[2022-09-01 15:20] LABS: ABG BASE EXCESS 1.4 MMOL/L (-2.5-2.5); ABG OXYGEN SATURATION 98 % (94-100); ABG PCO2 41 MMHG (35-45); ABG PH 7.41 (7.37-7.43); ABG PO2 87 MMHG (79-93)
[2022-09-01 15:21] LABS: ALLENS TEST YES-POS; INSPIRED O2 5%; PATIENT TEMP 36.3; VENTILATOR NO
--- NOTE | 2022-09-01 15:30 | Diagnostic Imaging Report ---
INDICATION: Hypoxemia Portable chest 2:52 PM There is a dual-chamber pacemaker. There is cardiomegaly with pulmonary vascular congestion. There is interstitial edema. IMPRESSION: Congestive heart failure Dictated by: Dictated on workstation # [id number]
--- NOTE | 2022-09-01 15:41 | Physical Therapy Daily Note ---
PT Daily Note-Current Subjective Pt sitting in recliner upon arrival. Pt agrees to PT. Pain Location: No Pain Reported Section J - Health Conditions 1. Rarely or not at all 2. Occasionally 3. Frequently 4. Almost constantly 8. Unable to answer Pain Effect on Sleep: 1 Pain Interference with Therapy: 1 Pain Interference w/Day-to-Day: 1 Mental Status Patient Orientation: Person, Place, Situation Attachments: Oxygen (4L to start tx & turned up to 6L due to dropping O2) Transfers SCALE: Activities may be completed with or without assistive devices. 1-Nydteloqvn-rfsdijx completes the activity by him/herself with no assistance from a helper. 5-Set-up or Clean-up Assistance-helper sets up or cleans up; patient completes activity. [place] assists only prior to or following the activity. 4-Supervision or Touching Assistance-helper provides verbal cues and/or touching/steadying and/or contact guard assistance as patient completes activity. Assistance may be provided throughout the activity or intermittently. 3-Partial/Moderate Assistance-helper does LESS THAN HALF the effort. [place] lifts, holds or supports trunk or limbs, but provides less than half the effort. 2-Substantial/Maximal Assistance-helper does MORE THAN HALF the effort. [place] lifts or holds trunk or limbs and provides more than half the effort. 4-Ojdiqitih-wmgddm does ALL the effort. Patient does none of the effort to complete the activity. Or, the assistance of 2 or more helpers is required for the patient to complete the activity. If activity was not attempted, code reason: 7-Patient Refused. 9-Not Applicable-not attempted and the patient did not perform the activity before the current illness, exacerbation or injury. 10-Not Attempted due to Environmental Limitations-(lack of equipment, weather restraints, etc.). 88-Not Attempted due to Medical Conditions or Safety Concerns. Sit to Stand (QC): 5 Toilet Transfer (QC): 5 Weight Bearing Full Weight Bearing Full Weight Bearing Gait Training Does the Patient Walk?: Yes Distance: 10' x2 Walk 10 feet (QC): 5 Gait Assistive Device: FWW Treatments TF to standing and amb to BR. Pt has BM but needs assistance for pericare due to fatigue and SOA. Pt returns to recliner to rest as O2 has dropped and is continued to be monitored. Nurse is advised. PRODUCT GRADER stays with pt until O2 returns to above 90%. All needs met, call light in hand. Nurse is present. Assessment Current Status: Poor Progress O2 drops to 59% after returning to recliner from toileting. Pt is on 6L of O2 during toileting and amb. O2 takes extended time to recover (10mins). PT Short Term Goals Short Term Goals Time Frame: Aug 28, 2022 Sit to stand: 4 Chair/rme-ca-spebm transfer: 4 Walk 10 feet: 4 Walk 50 feet with two turns: 4 Walk 150 feet: 4 PT Senior Business Process Analyst Goals Senior Business Process Analyst Goals PT Senior Business Process Analyst Goals Time Frame: Sep 04, 2022 Roll Left & Right (QC): 6 Sit to Lying (QC): 6 Lying-Sitting on Side/Bed(QC): 6 Sit to Stand (QC): 6 Chair/Plt-vw-Qpobj Xfer(QC): 6 Toilet Transfer (QC): 6 Car Transfer (QC): 6 Does the Patient Walk: Yes Walk 10 feet (QC): 6 Walk 50ft with 2 Turns (QC): 6 Walk 150 ft (QC): 6 Walking 10ft on Uneven Surface: 6 1 Step (curb) (QC): 4 (SBA) 4 Steps (QC): 4 (SBA) 12 Steps (QC): 88 Picking up an Object (QC): 6 Wheel 50 feet with 2 turns (QC: 9 Wheel 150 feet: 9 PT Plan Problem List Problem List: Activity Tolerance, Functional Strength, Safety Treatment/Plan Treatment Plan: Continue Plan of Care Treatment Plan: Bed Mobility, Education, Functional Activity Cece, Functional Strength, Group Therapy, Gait, Safety, Therapeutic Exercise, Transfers Treatment Duration: Sep 04, 2022 Frequency: At least 5 of 7 days/Wk (IRF) Estimated Hrs Per Day: 1.5 hours per day Patient and/or Family Agrees t: Yes Safety Risks/Education Patient Education: Safety Issues Time Time In: 1400 Time Out: 1430 DATE: Sep 01, 2022 Total Billed Treatment Time: 30 Total Billed Treatment 1, FA x2 (30m) MANNY NÚÑEZ PRODUCT GRADER Sep 01, 2022 15:41
[2022-09-01] MEDS ORDERED: methylPREDNISolone 40 MG/ML (Solu-MEDROL) VIAL IV SCH (16:00)
[2022-09-01] MEDS ORDERED: KCL 20 MEQ TAB (K-DUR) PO NR (16:30)
[2022-09-01] MEDS ORDERED: FUROSEMIDE 40 MG/4 ML INJ (LASIX) IVP NR (16:30)
--- NOTE | 2022-09-01 17:50 | Podiatry Progress Note ---
Standard Progress Note Progress Notes/Assess & Plan Date Seen by a Provider: Sep 01, 2022 Time Seen by a Provider: 17:49 Progress/Assessment & Plan Consultation was dictated. Foot care given. Final Diagnosis Diabetic peripheral neuropathy, onychomycosis, partial thickness wound to the left 2nd toe PHILLY HAMILTON DPNikole Sep 01, 2022 17:50
--- NOTE | 2022-09-01 18:54 | CONSULTATION REPORT ---
DATE OF SERVICE: 09/01/2022 REASON FOR CONSULTATION: Diabetic foot care. HISTORY OF PRESENT ILLNESS: This 77-year-old was admitted secondary to weakness as well as difficulty breathing. He has gone through some rehabilitation here at [facility], which he deems to have been helpful. PAST MEDICAL HISTORY: AFib, TIA, CVA, COPD, hypertension, type 2 diabetes, sleep apnea and urinary incontinence. PAST SURGICAL HISTORY: Includes a pacemaker and cardiac surgery, cataract surgery. ALLERGIES: NO KNOWN DRUG ALLERGIES. CURRENT MEDICATIONS: Listed on the patient's chart. SOCIAL HISTORY: The patient is . Denies tobacco use currently, but has a 30-year tobacco use history. No current alcohol consumption. PHYSICAL EXAMINATION: EXTREMITIES: On lower extremity examination, the patient has 2/4 dorsalis pedis pulse on the right, 1/4 on the left, 0/4 posterior tibial pulse bilaterally. Cap refill time is less than 3 seconds. NEUROLOGICAL: The patient has diminished protective sensation with 10-gram monofilament wire examination bilaterally. Diminished deep tendon reflexes to the Achilles tendon bilaterally. Also, there is diminished vibratory sensation to the forefoot bilaterally. INTEGUMENT: The patient has thick yellow dystrophic toenails with subungual debris associated with the R1, 2, 3, 4 and L1, 2, 3, 4 digits. There is a hyperkeratotic lesion, which is mild to the medial aspect of the first metatarsal head bilaterally. There is also some micro bleeding to the hyponychium of the left second digit. No erythema, edema, or gross signs of bacterial infection are noted. MUSCULOSKELETAL: The patient has 5/5 muscle strength to 4 major quadrants of the foot. He has mild contracture of the toes 2, 3, 4, and 5 bilaterally. ASSESSMENT: 1. Atherosclerosis. 2. Diabetic peripheral neuropathy. 3. Onychomycosis. 4. Partial thickness wound, hyponychium of the left second toe. 5. Hammer digit syndrome. PLAN: The patient's treatment options were discussed with the patient today. We discussed diabetic foot care in general. The patient's toenails were debrided manually and mechanically. Betadine applied to R1, 2, 3, 4 and L1, 2, 3, 4 digits. The hyperkeratosis and partial thickness wound to the hyponychium of the left second toe was debrided, cleansed, after which Silvadene cream and a light dressing was applied. He will continue with wound care until toe completely heal. I would recommend the patient utilize appropriate diabetic shoes and insoles to help protect his feet. Upon discharge, which I expect to be tomorrow, the patient is welcome to follow up in my office as necessary for further consultation and treatment. Job ID: [id number] DocumentID: [id number] Dictated Date: 09/01/2022 17:49:50 Nurses Medical Assistants Phlebotomists Date: 09/01/2022 18:52:00 Dictated By: MAK GRECO
[2022-09-01 19:59] VITALS: BP 117/73
[2022-09-01] MEDS: eZETimibe 10 MG (ZETIA) TABLET PO SCH (20:38)
[2022-09-01 20:55] VITALS: BP 127/76
--- NOTE | 2022-09-01 20:57 | Discharge Summary ---
Diagnosis/Chief Complaint Date of Admission Aug 21, 2022 at 10:58 Date of Discharge Discharge Date: Sep 01, 2022 Discharge Diagnosis Assessment/Plan: Debility due to illness - Inpatient rehab - PT/OT eval and treat Atrial fibrillation (Follows with Dr. Carpenter) - AV block s/p pacemaker placement; rate and rhythm controlled. 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) - Still has position deficits in leg, motor and strength almost back to normal - On clopidegril and baby aspirin - Continue statin - COPD (Follows with [facility] [place]) - Recent exacerbation - on 2L baseline, currently requiring more - continue incruse ellipta (LAMA) - DuoNebs PRN Pulmonary Fibrosis (diagnosed 3 months ago) - on sildenafil 20 - As above for COPD treatment PRN Urinary incontinence - Hodgson previous - Not currently taking reductase inhibitors/alpha blockers - Bladder scan for post void residual Hypertension - Hold home medication if normotensive T2DM - Monitor blood sugar - ISS as needed, adjust with exercise Hx of sleep apnea - Does not tolerate CPAP, uses 2L O2 NC at night - Baseline 2L Hematuria on 08/24/2022 -Hold anticoagulation and check urine UTI Pseudomonas Plan: Consult Cardiology Home meds O2 Monitor closely 08/22/2022: Patient doing well 08/23/2022: Eliquis 08/24/2022: Hold anticoagulation Check UA 08/25/2022: Change abx to Cipro and await UCx 08/26/2022: F/U on UCx Monitor closely 08/27/2022: Complete abx Hold OAC until UTI treated 08/28/2022: Monitor HR Appreciated Dr Barnes 08/29/2022: Restarted OAC yesterday Complete abx for UTI 08/30/2022: Complete abx 08/31/2022: Complete antibiotics today 09/01/2022: IV steroids Discharge Summary Discharge Physical Examination Allergies: Coded Allergies: No Known Allergies (Verified Allergy, Unknown, 08/21/22) Vitals & I&Os Vital Signs Date Time Temp Pulse Resp B/P (MAP) Pulse Ox O2 Delivery O2 Flow Rate FiO2 09/01/22 20:55 36.8 109 28 127/76 (93) 91 High Flow N/C 8.00 General Appearance: Alert, Oriented X3, Other (tachypneic) Respiratory: Clear to Auscultation Psych/Mental Status: Mental Status NL Hospital Course Was the Problem List Reviewed?: Yes Gulshan Mackenzie is a pleasant 77 yo M who is being transferred from Cardiac Step- down to the ICU for tachycardia with atrial fibrillation and closer observation of his pulmonary status. He was admitted to Inpatient Rehab on 08/21/2022. Per admission note: "Gulshan Mackenzie is a 77-year-old male with history of a-fib s/p pacemaker placement, pulmonary fibrosis, COPD with recent exacerbation, CVA, hypertension, and hyperlipidemia who was admitted to acute rehab at [facility] on 08/21 following hospitalization 07/31- 08/21/22 from [facility] for weakness and debilitation following COPD exacerbation secondary to viral pneumonia. While at [place] he was treated with IV ceftriaxone and cefepime which also covered for a UTI which grew pseudomonas. He endorses a non- productive cough, and shortness of breath as well as his position sensory deficits on his left side. Denies chest pain, abdominal pain, vision/hearing changes. Bowels are moving, and upon standing he has leakage of urine. Plan to go back home with son and Daughter in law upon discharge." He had been working with PT/OT to improve strength and endurance. Cardiology has been following him since admit for chronic Afib and tachycardia. Yesterday on 09/01/2022, patient was transferred to the Cardiac Step-down Unit due to increased dyspnea. He denied chest pain and felt that is shortness of breath was "okay". Today he is alert and oriented while resting in bed. He appears to be in no acute distress. He is on BIPAP at 50% O2 flow rate. Denies any pain and feels that his breathing is "okay". He has not been ambulating since moving to the cardiac unit. Last bowel movement was yesterday and he is eating independently. Chest x-ray this morning notes "5 lobed largely interstitial pulmonary opacities with interval reduction in lung volumes." The patient regularly sees Dr. Kaur for pulmonology. When asked this morning of his opinion on going on a ventilator, the patient reports he does not want to be placed on one, but is unsure about the decision if there comes a point that he needs to be on a vent. Dr. Gabriel spoke with the patient's daughter, Karrie, last night and this morning about the ICU transfer and the probable need for placement on a ventilator. Labs (last 24 hrs) Laboratory Tests 08/21/22 10:58: Lab Scanned Report Referred Lab Report 08/22/22 05:05: White Blood Count 5.1, Red Blood Count 4.53, Hemoglobin 14.4, Hematocrit 43, Mean Corpuscular Volume 95, Mean Corpuscular Hemoglobin 32, Mean Corpuscular Hemoglobin Concent 34, Red Cell Distribution Width 14.6H, Platelet Count 157, Mean Platelet Volume 9.7, Immature Granulocyte % (Auto) 2, Neutrophils (%) (Auto) 46, Lymphocytes (%) (Auto) 33, Monocytes (%) (Auto) 18H, Eosinophils (%) (Auto) 1, Basophils (%) (Auto) 0, Neutrophils # (Auto) 2.3, Lymphocytes # (Auto) 1.7, Monocytes # (Auto) 0.9, Eosinophils # (Auto) 0.1, Basophils # (Auto) 0.0, Immature Granulocyte # (Auto) 0.1, Sodium Level 137, Potassium Level 3.5L, Chloride Level 101, Carbon Dioxide Level 28, Anion Gap 8, Blood Urea Nitrogen 11, Creatinine 0.97, Estimat Glomerular Filtration Rate 81, BUN/Creatinine Ratio 11, Glucose Level 117H, Calcium Level 8.8, Corrected Calcium 9.5, Total Bilirubin 0.9, Aspartate Amino Transf (AST/SGOT) 25, Alanine Aminotransferase (ALT/SGPT) 55, Alkaline Phosphatase 59, Total Protein 6.1L, Albumin 3.1L 08/24/22 06:15: Sodium Level 137, Potassium Level 3.7, Chloride Level 102, Carbon Dioxide Level 29, Anion Gap 6, Blood Urea Nitrogen 10, Creatinine 0.76, Estimat Glomerular Filtration Rate 93, BUN/Creatinine Ratio 13, Glucose Level 110H, Calcium Level 8.8, Magnesium Level 1.8, Thyroid Stimulating Hormone (TSH) 0.91 08/24/22 15:35: Urine Color DARK YELLOW, Urine Clarity CLOUDY, Urine pH 5.5, Urine Specific Scott >=1.030, Urine Protein 1+H, Urine Glucose (UA) NEGATIVE, Urine Ketones TRACEH, Urine Nitrite NEGATIVE, Urine Bilirubin NEGATIVE, Urine Urobilinogen 1.0, Urine Leukocyte Esterase 3+H, Urine RBC (Auto) 3+H, Urine RBC >100H, Urine WBC 50-100H, Urine Crystals NONE, Urine Bacteria TRACE, Urine Casts NONE, Urine Mucus NEGATIVE, Urine Culture Indicated YES 08/25/22 05:35: White Blood Count 5.6, Red Blood Count 4.20L, Hemoglobin 13.4, Hematocrit 40, Mean Corpuscular Volume 95, Mean Corpuscular Hemoglobin 32, Mean Corpuscular Hemoglobin Concent 34, Red Cell Distribution Width 14.6H, Platelet Count 142, Mean Platelet Volume 9.4, Immature Granulocyte % (Auto) 2, Neutrophils (%) (Auto) 47, Lymphocytes (%) (Auto) 35, Monocytes (%) (Auto) 14H, Eosinophils (%) (Auto) 1, Basophils (%) (Auto) 0, Neutrophils # (Auto) 2.7, Lymphocytes # (Auto) 2.0, Monocytes # (Auto) 0.8, Eosinophils # (Auto) 0.1, Basophils # (Auto) 0.0, Immature Granulocyte # (Auto) 0.1, Percent Immature Platelet Fraction 1.8, Sodium Level 137, Potassium Level 3.7, Chloride Level 101, Carbon Dioxide Level 28, Anion Gap 8, Blood Urea Nitrogen 14, Creatinine 0.83, Estimat Glomerular Filtration Rate 91, BUN/Creatinine Ratio 17, Glucose Level 115H, Calcium Level 9.0, Corrected Calcium 9.8, Total Bilirubin 0.6, Aspartate Amino Transf (AST/SGOT) 23, Alanine Aminotransferase (ALT/SGPT) 46, Alkaline Phosphatase 56, Total Protein 5.8L, Albumin 3.0L 09/01/22 05:30: White Blood Count 5.8, Red Blood Count 4.48, Hemoglobin 14.3, Hematocrit 43, Mean Corpuscular Volume 96, Mean Corpuscular Hemoglobin 32, Mean Corpuscular Hemoglobin Concent 33, Red Cell Distribution Width 15.2H, Platelet Count 135, Mean Platelet Volume 9.7, Immature Granulocyte % (Auto) 2, Neutrophils (%) (Auto) 56, Lymphocytes (%) (Auto) 27, Monocytes (%) (Auto) 14H, Eosinophils (%) (Auto) 1, Basophils (%) (Auto) 0, Neutrophils # (Auto) 3.3, Lymphocytes # (Auto) 1.6, Monocytes # (Auto) 0.8, Eosinophils # (Auto) 0.1, Basophils # (Auto) 0.0, Immature Granulocyte # (Auto) 0.1, Percent Immature Platelet Fraction 1.9, Sodium Level 138, Potassium Level 3.9, Chloride Level 102, Carbon Dioxide Level 26, Anion Gap 10, Blood Urea Nitrogen 15, Creatinine 0.98, Estimat Glomerular Filtration Rate 80, BUN/Creatinine Ratio 15, Glucose Level 126H, Calcium Level 9.2, Corrected Calcium 9.7, Total Bilirubin 0.8, Aspartate Amino Transf (AST/SGOT) 37H, Alanine Aminotransferase (ALT/SGPT) 74H, Alkaline Phosphatase 70, Total Protein 6.7, Albumin 3.4, B-Type Natriuretic Peptide 37.5 09/01/22 15:15: Blood Gas Puncture Site UNK, Blood Gas Patient Temperature 36.3, Arterial Blood pH 7.41, Arterial Blood Partial Pressure CO2 41, Arterial Blood Partial Pressure O2 87, Arterial Blood HCO3 26, Arterial Blood Total CO2 27.0, Arterial Blood Oxygen Saturation 98, Arterial Blood Base Excess 1.4, Andrea Test YES-POS, Blood Gas Ventilator Setting NO, Blood Gas Inspired Oxygen 5% Microbiology 08/24/22 Urine Culture - Final, Complete Pseudomonas aeruginosa Pseudomonas aeruginosa#2 Pending Labs Microbiology Date/Time Source Procedure Growth Status 08/24/22 15:35 Urine Clean Catch Urine Culture - Final Pseudomonas aeruginosa Pseudomonas aeruginosa#2 Complete Laboratory Tests 08/21/22 10:58: Lab Scanned Report Referred Lab Report 08/22/22 05:05: White Blood Count 5.1, Red Blood Count 4.53, Hemoglobin 14.4, Hematocrit 43, Mean Corpuscular Volume 95, Mean Corpuscular Hemoglobin 32, Mean Corpuscular Hemoglobin Concent 34, Red Cell Distribution Width 14.6, Platelet Count 157, Mean Platelet Volume 9.7, Immature Granulocyte % (Auto) 2, Neutrophils (%) (Auto) 46, Lymphocytes (%) (Auto) 33, Monocytes (%) (Auto) 18, Eosinophils (%) (Auto) 1, Basophils (%) (Auto) 0, Neutrophils # (Auto) 2.3, Lymphocytes # (Auto) 1.7, Monocytes # (Auto) 0.9, Eosinophils # (Auto) 0.1, Basophils # (Auto) 0.0, Immature Granulocyte # (Auto) 0.1, Sodium Level 137, Potassium Level 3.5, Chloride Level 101, Carbon Dioxide Level 28, Anion Gap 8, Blood Urea Nitrogen 11, Creatinine 0.97, Estimat Glomerular Filtration Rate 81, BUN/Creatinine Ratio 11, Glucose Level 117, Calcium Level 8.8, Corrected Calcium 9.5, Total Bilirubin 0.9, Aspartate Amino Transf (AST/SGOT) 25, Alanine Aminotransferase (ALT/SGPT) 55, Alkaline Phosphatase 59, Total Protein 6.1, Albumin 3.1 08/24/22 06:15: Sodium Level 137, Potassium Level 3.7, Chloride Level 102, Carbon Dioxide Level 29, Anion Gap 6, Blood Urea Nitrogen 10, Creatinine 0.76, Estimat Glomerular Filtration Rate 93, BUN/Creatinine Ratio 13, Glucose Level 110, Calcium Level 8.8, Magnesium Level 1.8, Thyroid Stimulating Hormone (TSH) 0.91 08/24/22 15:35: Urine Color DARK YELLOW, Urine Clarity CLOUDY, Urine pH 5.5, Urine Specific Scott >=1.030, Urine Protein 1+, Urine Glucose (UA) NEGATIVE, Urine Ketones TRACE, Urine Nitrite NEGATIVE, Urine Bilirubin NEGATIVE, Urine Urobilinogen 1.0, Urine Leukocyte Esterase 3+, Urine RBC (Auto) 3+, Urine RBC >100, Urine WBC 50- 100, Urine Crystals NONE, Urine Bacteria TRACE, Urine Casts NONE, Urine Mucus NEGATIVE, Urine Culture Indicated YES 08/25/22 05:35: White Blood Count 5.6, Red Blood Count 4.20, Hemoglobin 13.4, Hematocrit 40, Mean Corpuscular Volume 95, Mean Corpuscular Hemoglobin 32, Mean Corpuscular Hemoglobin Concent 34, Red Cell Distribution Width 14.6, Platelet Count 142, Mean Platelet Volume 9.4, Immature Granulocyte % (Auto) 2, Neutrophils (%) (Auto) 47, Lymphocytes (%) (Auto) 35, Monocytes (%) (Auto) 14, Eosinophils (%) (Auto) 1, Basophils (%) (Auto) 0, Neutrophils # (Auto) 2.7, Lymphocytes # (Auto) 2.0, Monocytes # (Auto) 0.8, Eosinophils # (Auto) 0.1, Basophils # (Auto) 0.0, Immature Granulocyte # (Auto) 0.1, Percent Immature Platelet Fraction 1.8, Sodium Level 137, Potassium Level 3.7, Chloride Level 101, Carbon Dioxide Level 28, Anion Gap 8, Blood Urea Nitrogen 14, Creatinine 0.83, Estimat Glomerular Filtration Rate 91, BUN/Creatinine Ratio 17, Glucose Level 115, Calcium Level 9.0, Corrected Calcium 9.8, Total Bilirubin 0.6, Aspartate Amino Transf (AST/SGOT) 23, Alanine Aminotransferase (ALT/SGPT) 46, Alkaline Phosphatase 56, Total Protein 5.8, Albumin 3.0 09/01/22 05:30: White Blood Count 5.8, Red Blood Count 4.48, Hemoglobin 14.3, Hematocrit 43, Mean Corpuscular Volume 96, Mean Corpuscular Hemoglobin 32, Mean Corpuscular Hemoglobin Concent 33, Red Cell Distribution Width 15.2, Platelet Count 135, Mean Platelet Volume 9.7, Immature Granulocyte % (Auto) 2, Neutrophils (%) (Auto) 56, Lymphocytes (%) (Auto) 27, Monocytes (%) (Auto) 14, Eosinophils (%) (Auto) 1, Basophils (%) (Auto) 0, Neutrophils # (Auto) 3.3, Lymphocytes # (Auto) 1.6, Monocytes # (Auto) 0.8, Eosinophils # (Auto) 0.1, Basophils # (Auto) 0.0, Immature Granulocyte # (Auto) 0.1, Percent Immature Platelet Fraction 1.9, Sodium Level 138, Potassium Level 3.9, Chloride Level 102, Carbon Dioxide Level 26, Anion Gap 10, Blood Urea Nitrogen 15, Creatinine 0.98, Estimat Glomerular Filtration Rate 80, BUN/Creatinine Ratio 15, Glucose Level 126, Calcium Level 9.2, Corrected Calcium 9.7, Total Bilirubin 0.8, Aspartate Amino Transf (AST/SGOT) 37, Alanine Aminotransferase (ALT/SGPT) 74, Alkaline Phosphatase 70, Total Protein 6.7, Albumin 3.4, B-Type Natriuretic Peptide 37.5 09/01/22 15:15: Blood Gas Puncture Site UNK, Blood Gas Patient Temperature 36.3, Arterial Blood pH 7.41, Arterial Blood Partial Pressure CO2 41, Arterial Blood Partial Pressure O2 87, Arterial Blood HCO3 26, Arterial Blood Total CO2 27.0, Arterial Blood Oxygen Saturation 98, Arterial Blood Base Excess 1.4, Andrea Test YES-POS, Blood Gas Ventilator Setting NO, Blood Gas Inspired Oxygen 5% Discharge Home Medications: Active Scripts Active Reported Garlic 1,000 Mg Capsule 2,000 Mg PO DAILY Rosuvastatin Calcium 40 Mg Tablet 40 Mg PO HS Losartan Potassium 50 Mg Tablet 50 Mg PO HS Carvedilol 12.5 Mg Tablet 12.5 Mg PO BID Tylenol (Acetaminophen) 325 Mg Capsule 650 Mg PO Q6H PRN Multivitamins with Minerals (Multivitamin with Minerals) 1 Each Tablet 1 Each PO DAILY Ezetimibe 10 Mg Tablet 10 Mg PO HS Clopidogrel (Clopidogrel Bisulfate) 75 Mg Tablet 75 Mg PO DAILY Aspirin 81 Mg Tab.chew 81 Mg PO DAILY Instructions to patient/family Please see electronic discharge instructions given to patient. Diagnosis/Problems Diagnosis/Problems (1) COPD exacerbation DAYANA GABRIEL DO Sep 01, 2022 20:57
[2022-09-01] MEDS ORDERED: NEO/POLY/BAC (NEOSPORIN) OINT 15 GM TUBE TOP SCH (21:00)
--- NOTE | 2022-09-02 12:47 | Therapy Team Discharge Summary ---
Therapy Discharge Summary Discharge Recommendations Date of Discharge Sep 01, 2022 at 21:15 Physical Therapy Patient came to rehab with debility, s/p pneumonia. Upon evaluation patient performs rolling and supine <-> sit with SBA, sit <-> stand and transfers CGA, car transfer CGA, ambulate 60' with a rolling walker with CGA (including 50' with at least 2 turns of 90 degrees and 10' over an uneven surface), propelled a manual WC 150' with min assist, go up and down 1 step using a rolling walker with CGA, and could plastic duplicator an object from the floor using a tax intern with CGA. Patient has been performing bed mobility and transfer training, balance and endurance training, functional strengthening, stair training, gait training, and education. Patient has made some progress but had to be transferred to a different floor due to medical complications. Patient will be discharged from PT at this time. Roll Left to Right (QC): 5 Sit to Lying (QC): 6 Lying to Sitting/Side of Bed(Q: 6 Sit to Stand (QC): 5 Chair/Whp-nr-Idile Xfer(QC): 5 Toilet Transfer (QC): 4 Car Transfer (QC): 4 Does the Patient Walk: Yes Mode of Locomotion: Walk Anticipated Mode of Locomotion: Walk Walk 10 feet (QC): 5 Walk 50 ft with 2 Turns(QC): 5 Walk 150 ft (QC): 4 Walking 10ft on uneven surface: 5 Distance: 60'x2 Gait Assistive Device: FWW Does the Pt Use a Wheelchair: No Wheelchair Distance: 150' Wheel 50 ft with 2 turns (QC): 3 Wheel 150 ft (QC): 3 Type of Wheelchair: Manual #of Steps: 2 1 Step (curb) (QC): 5 4 Steps (QC): 88 12 Steps (QC): 88 Walking Assistive Device: Walker Balance Sitting Static: Normal Balance Sitting Dynamic: Normal Balance-Standing Static: Fair Picking up an Object (QC): 4 Occupational Therapy Decreased Activ Tolerance, Decreased UE Strength, Impaired I ADL's Eating (QC): 6 Oral Hygiene (QC): 5 Shower/Bathe Self (QC): 4 (SBA) Upper Body Dressing (QC): 5 Lower Body Dressing (QC): 5 On/Off Footwear (QC): 5 Toileting Hygiene (QC): 4 (SBA) PT Nurse Sexual Assault Goals [facility] Goals PT Nurse Sexual Assault Goals Time Frame: Sep 04, 2022 Roll Left to Right (QC): 6 Sit to Lying (QC): 6 Lying-Sitting on Side/Bed(QC): 6 Sit to Stand (QC): 6 Chair/Rtr-kz-Atjxw Xfer(QC): 6 Toilet/Commode Transfer (QC): 6 Car Transfer (QC): 6 Does the Patient Walk: Yes Walk 10 feet (QC): 6 Walk 10ft-Uneven Surface(QC): 6 Walk 50ft with 2 Turns (QC): 6 Walk 150 ft (QC): 6 Wheel 50 feet with 2 turns (QC: 9 Wheel 150 feet: 9 1 Step (curb) (QC): 4 (SBA) 4 Steps (QC): 4 (SBA) 12 Steps (QC): 88 Picking up an Object (QC): 6 OT [facility] Goals [facility] Goals Time Frame: Sep 19, 2022 Acute change in mental status: 0 Inattention: 0 Disorganized thinkin Altered level of consciousness: 0 Eating (QC): 6 Oral Hygiene (QC): 6 Toileting Hygiene (QC): 6 Shower/Bathe Self (QC): 6 Upper Body Dressing (QC): 6 Lower Body Dressing (QC): 6 On/Off Footwear (QC): 6 Additional Goals: 1-Demonstrate ADL Tasks, 2-Verbalize Understanding, 3- ImproveStrength/Cece 1=Demonstrate adherence to instructed precautions during ADL tasks. 2=Patient will verbalize/demonstrate understanding of assistive devices/modifications for ADL. 3=Patient will improve strength/tolerance for activity to enable patient to perform ADL's. RAVI CHAVEZ PT Sep 02, 2022 12:47
--- NOTE | 2022-09-02 13:01 | Therapy Team Discharge Summary ---
Therapy Discharge Summary Discharge Recommendations Date of Discharge Sep 01, 2022 at 21:15 Physical Therapy Roll Left to Right (QC): 5 Sit to Lying (QC): 6 Lying to Sitting/Side of Bed(Q: 6 Sit to Stand (QC): 5 Chair/Rpw-yr-Icjqn Xfer(QC): 5 Toilet Transfer (QC): 4 Car Transfer (QC): 4 Does the Patient Walk: Yes Mode of Locomotion: Walk Anticipated Mode of Locomotion: Walk Walk 10 feet (QC): 5 Walk 50 ft with 2 Turns(QC): 5 Walk 150 ft (QC): 4 Walking 10ft on uneven surface: 5 Distance: 60'x2 Gait Assistive Device: FWW Does the Pt Use a Wheelchair: No Wheelchair Distance: 150' Wheel 50 ft with 2 turns (QC): 3 Wheel 150 ft (QC): 3 Type of Wheelchair: Manual #of Steps: 2 1 Step (curb) (QC): 5 4 Steps (QC): 88 12 Steps (QC): 88 Walking Assistive Device: Walker Balance Sitting Static: Normal Balance Sitting Dynamic: Normal Balance-Standing Static: Fair Picking up an Object (QC): 4 Occupational Therapy Pt admitted to ARU with AECOPD. At [facility], pt was independent with ADLS and functional mobility using a cane and 4WW. Upon initial evaluation, pt was independent with eating, required set up with oral care, UE dressing and footwear, and CGA showering, LE dressing and toileting. OT tx focused on increasing BUE strength and activity tolerance, and increasing safety and independence with ADLs and functional mobility. Pt made some functional progress towards goals, but progress was limited by decreased O2 saturation and SOB with minimal activity. Pt only attained LTG for eating. Pt transferred from ARU to cardiac step down unit due to increased medical complexity requiring higher level of care. Pt will be discharged from OT at this time. Decreased Activ Tolerance, Decreased UE Strength, Impaired I ADL's Eating (QC): 6 Oral Hygiene (QC): 5 Shower/Bathe Self (QC): 4 (SBA) Upper Body Dressing (QC): 5 Lower Body Dressing (QC): 5 On/Off Footwear (QC): 5 Toileting Hygiene (QC): 4 (SBA) PT Certified Industrial Hygienist Goals Certified Industrial Hygienist Goals [facility] Goals Time Frame: Sep 04, 2022 Roll Left to Right (QC): 6 Sit to Lying (QC): 6 Lying-Sitting on Side/Bed(QC): 6 Sit to Stand (QC): 6 Chair/[place]-up-Iyani Xfer(QC): 6 Toilet/Commode Transfer (QC): 6 Car Transfer (QC): 6 Does the Patient Walk: Yes Walk 10 feet (QC): 6 Walk 10ft-Uneven Surface(QC): 6 Walk 50ft with 2 Turns (QC): 6 Walk 150 ft (QC): 6 Wheel 50 feet with 2 turns (QC: 9 Wheel 150 feet: 9 1 Step (curb) (QC): 4 (SBA) 4 Steps (QC): 4 (SBA) 12 Steps (QC): 88 Picking up an Object (QC): 6 OT Certified Industrial Hygienist Goals Certified Industrial Hygienist Goals Time Frame: Sep 19, 2022 Acute change in mental status: 0 Inattention: 0 Disorganized thinkin Altered level of consciousness: 0 Eating (QC): 6 (met) Oral Hygiene (QC): 6 (not met) Toileting Hygiene (QC): 6 (not met) Shower/Bathe Self (QC): 6 (not met) Upper Body Dressing (QC): 6 (not met) Lower Body Dressing (QC): 6 (not met) On/Off Footwear (QC): 6 (not met) Additional Goals: 1-Demonstrate ADL Tasks, 2-Verbalize Understanding, 3- ImproveStrength/Cece 1=Demonstrate adherence to instructed precautions during ADL tasks. 2=Patient will verbalize/demonstrate understanding of assistive devices/modifications for ADL. 3=Patient will improve strength/tolerance for activity to enable patient to perform ADL's. LEONEL CARVALHO OT Sep 02, 2022 13:01
== END 2022-09-01 21:15 | disposition short-term general hospital (02) | DRG 191 ==
PROVIDERS: ADMIT Internal Medicine; ATTEND Internal Medicine
DX: J44.9 Chronic obstructive pulmonary disease, unspecified (principal); N39.0 Urinary tract infection, site not specified; G72.89 Other specified myopathies; J84.10 Pulmonary fibrosis, unspecified; I10 Essential (primary) hypertension; E78.00 Pure hypercholesterolemia, unspecified; E11.40 Type 2 diabetes mellitus with diabetic neuropathy, unspecified; N40.1 Benign prostatic hyperplasia with lower urinary tract symptoms; N31.9 Neuromuscular dysfunction of bladder, unspecified; N39.498 Other specified urinary incontinence; K21.9 Gastro-esophageal reflux disease without esophagitis; M19.91 Primary osteoarthritis, unspecified site; F41.9 Anxiety disorder, unspecified; F32.A Depression, unspecified; Z95.0 Presence of cardiac pacemaker; Z87.891 Personal history of nicotine dependence; Z79.82 Long term (current) use of aspirin; Z79.52 Long term (current) use of systemic steroids; Z86.73 Personal history of transient ischemic attack (TIA), and cerebral infarction without residual deficits; L98.411 Non-pressure chronic ulcer of buttock limited to breakdown of skin; E66.9 Obesity, unspecified; Z68.31 Body mass index [BMI] 31.0-31.9, adult; G47.33 Obstructive sleep apnea (adult) (pediatric); I48.0 Paroxysmal atrial fibrillation; I49.5 Sick sinus syndrome; R31.9 Hematuria, unspecified; B96.5 Pseudomonas (aeruginosa) (mallei) (pseudomallei) as the cause of diseases classified elsewhere; B35.1 Tinea unguium; L98.8 Other specified disorders of the skin and subcutaneous tissue; M20.42 Other hammer toe(s) (acquired), left foot; M20.41 Other hammer toe(s) (acquired), right foot
CPT/HCPCS: 36415; 36600; 71045; 80048; 80053; 81000; 82805; 83735; 83880; 84443; 85025; 87077; 87088; 87186; 93005; 94640; 94664; 94760; 94761

== ENCOUNTER 2022-09-01 21:36 | Inpatient (IN) | payer MEDICARE ==
[~2022-09-01] VITALS: Ht 182.9 cm; Wt 96.8 kg
[2022-09-01 21:20] VITALS: BP 122/75
[2022-09-01 21:28] VITALS: BP 126/74
[~2022-09-01 21:36] MED LIST: ACET325C7 PO; ASPI-999 PO; CARV12.53 PO; CLOP75TA28 PO; DILT30TA PO; DOCU100C37 PO; ENOX40DI8 SQ; EZET10TA49 PO; FURO20TA4 PO; GARL10002 PO; IPRA3AMP31 IH; LOSA50TA63 PO; MAGN400T50 PO; METO50TA15 PO; METO5VIA26 IV; MULT-166 PO; PANT40TA52 PO; POTA-177 PO; PRD10T PO; ROSU40TA23 PO; SILD20TA14 PO; UMEC62.5 IH
[2022-09-01 22:07] VITALS: BP 112/73
[2022-09-01] MEDS ORDERED: morphine INJ 4 MG/ML 1 ML (VIAL/SYRINGE) IV PRN (22:45)
[2022-09-01] MEDS ORDERED: MELATONIN 3 MG TABLET PO PRN (22:45)
[2022-09-01] MEDS ORDERED: ANTACID SUSP 30 ML UDC (MYLANTA) PO PRN (22:45)
[2022-09-01] MEDS ORDERED: polyethylene glycoL POWDER 17 GM (MIRALAX) PACK PO PRN (22:45)
[2022-09-01] MEDS ORDERED: ONDANSETRON 4 MG (ZOFRAN) ORAL DISSOLVE TAB PO PRN (22:45)
[2022-09-01] MEDS ORDERED: BISACODYL 10 MG SUPP (DULCOLAX) PR PRN (22:45)
[2022-09-01] MEDS ORDERED: CALCIUM CARBONATE 500 MG (TUMS) TAB.CHEW PO PRN (22:45)
[2022-09-01] MEDS ORDERED: diphenhydrAMINE 50 MG/ML INJ (BENADRYL) IVP PRN (22:45)
[2022-09-01] MEDS ORDERED: ONDANSETRON 4 MG/2 ML (SDV) Z0FRAN IV PRN (22:45)
[2022-09-01] MEDS ORDERED: diphenhydrAMINE 25 MG TAB (BENADRYL) PO PRN (22:45)
[2022-09-01] MEDS ORDERED: MILK OF MAGNESIA 400 MG/5 ML 30 ML UDC PO PRN (22:45)
[2022-09-01] MEDS ORDERED: LACTULOSE SYRUP 10GM/15ML (ENULOSE) 30ML UDC PO PRN (22:45)
[2022-09-01 22:54] VITALS: BP 112/73
[2022-09-01 23:00] VITALS: BP 102/64
[2022-09-01] MEDS ORDERED: RT-IPRATROPIUM (ATROVENT) 0.5MG/2.5ML AMP IH PRN (23:30)
[2022-09-01] MEDS ORDERED: RT-ALBUTEROL SULF 2.5 MG/3 ML PRE-MIX VIAL INH PRN (23:30)
[2022-09-02] VITALS: BP 114/75
[2022-09-02] MEDS: methylPREDNISolone 125 MG (Solu-MEDROL) VIAL IVP SCH ×4 (00:06→17:35)
[2022-09-02] MEDS: LORazepam 0.5 MG (ATIVAN) TABLET PO PRN (00:28)
[2022-09-02 01:00] VITALS: BP 93/69
[2022-09-02 02:00] VITALS: BP 128/68
[2022-09-02] MEDS: RT-IPRATROPIUM (ATROVENT) 0.5MG/2.5ML AMP IH SCH ×5 (03:02→22:18)
[2022-09-02] MEDS: RT-ALBUTEROL SULF 2.5 MG/3 ML PRE-MIX VIAL INH SCH ×6 (03:03→22:18)
[2022-09-02 04:29] VITALS: BP 102/73
[2022-09-02] MEDS ORDERED: BISACODYL 10 MG SUPP (DULCOLAX) PR PRN (05:00)
[2022-09-02] MEDS ORDERED: LACTULOSE SYRUP 10GM/15ML (ENULOSE) 30ML UDC PO PRN (05:00)
[2022-09-02] MEDS ORDERED: FLEET ENEMA ADULT 1 EA BTL PR PRN (05:00)
[2022-09-02] MEDS ORDERED: ONDANSETRON 4 MG (ZOFRAN) ORAL DISSOLVE TAB PO PRN (05:00)
[2022-09-02] MEDS ORDERED: DOCUSATE SODIUM 100 MG (COLACE) CAP PO PRN (05:00)
[2022-09-02] MEDS ORDERED: LOPERAMIDE 2 MG (IMODIUM) TABLET PO PRN (05:00)
[2022-09-02] MEDS ORDERED: guaiFENesin/CODEINE (ROBITUSSIN AC) 10ML UDC PO PRN (05:00)
[2022-09-02] MEDS ORDERED: diphenhydrAMINE 25 MG TAB (BENADRYL) PO PRN (05:00)
[2022-09-02] MEDS ORDERED: MELATONIN 3 MG TABLET PO PRN (05:00)
[2022-09-02] MEDS ORDERED: CALCIUM CARBONATE 500 MG (TUMS) TAB.CHEW PO PRN (05:00)
[2022-09-02 05:07] LABS: BASOPHILS % (AUTO) 0 % (0-10); EOSINOPHILS % (AUTO) 0 % (0-10); HEMATOCRIT 40 % (40-54); HEMOGLOBIN 13.8 g/dL (13.3-17.7); LYMPHOCYTES # (AUTO) 0.9 10^3/uL (1.0-4.0); LYMPHOCYTES % (AUTO) 15 % (12-44); MEAN CORPUSCULAR HEMOGLOBIN 32 pg (25-34); MEAN CORPUSCULAR HGB CONC 34 g/dL (32-36); MEAN CORPUSCULAR VOLUME 94 fL (80-99); MONOCYTES # (AUTO) 0.1 10^3/uL (0.0-1.0); MONOCYTES % (AUTO) 2 % (0-12); NEUTROPHILS # (AUTO) 4.8 10^3/uL (1.8-7.8); NEUTROPHILS % (AUTO) 82 % (42-75); PLATELET COUNT 129 10^3/uL (130-400); WHITE BLOOD COUNT 5.8 10^3/uL (4.3-11.0)
[2022-09-02 05:20] LABS: ALBUMIN 3.3 GM/DL (3.2-4.5); POTASSIUM 4.3 MMOL/L (3.6-5.0)
[2022-09-02 05:22] LABS: CALCIUM 9.3 MG/DL (8.5-10.1)
[2022-09-02 05:23] LABS: TOTAL PROTEIN 6.8 GM/DL (6.4-8.2)
[2022-09-02 05:25] LABS: BILIRUBIN,TOTAL 0.9 MG/DL (0.1-1.0)
[2022-09-02 05:26] LABS: CREATININE SERUM 1.03 MG/DL (0.60-1.30)
[2022-09-02 05:31] LABS: ABG BASE EXCESS 1.4 MMOL/L (-2.5-2.5); ABG OXYGEN SATURATION 100 % (94-100); ABG PCO2 41 MMHG (35-45); ABG PH 7.41 (7.37-7.43); ABG PO2 118 MMHG (79-93)
[2022-09-02 05:32] LABS: ALLENS TEST YES-POS; INSPIRED O2 50%; PATIENT TEMP 36.3; VENTILATOR NO
[2022-09-02] MEDS: MULTIVIT W/MINERALS TAB (THERAGRAN M) PO SCH (06:16)
[2022-09-02] MEDS: PANTOPRAZOLE 40 MG (PROTONIX) TAB PO SCH (06:16)
[2022-09-02 07:38] VITALS: BP 119/85
--- NOTE | 2022-09-02 07:50 | Progress Note - Cardiology ---
Cardiology SOAP Progress Note Subjective: Transferred to [facility] overnight d/t increased dyspnea No c/o CP or palpitations Feels SOB is "ok" Objective: I&O/Vital Signs 09/02/22 09/02/22 09/02/22 09/02/22 04:29 07:00 07:38 07:52 Temp 36.3 Pulse 102 123 122 Resp 19 33 B/P (MAP) 102/73 (83) 119/85 (96) Pulse Ox 96 93 93 O2 Delivery NIV Bilevel NIV Bilevel Vapotherm O2 Flow Rate 50.00 50.00 30.00 FiO2 50 09/02/22 09/02/22 09/02/22 09/02/22 08:00 10:00 10:15 10:19 Pulse 128 114 Resp 20 26 B/P (MAP) 97/67 (77) 99/58 (72) Pulse Ox 92 95 100 100 O2 Delivery Vapotherm Vapotherm Vapotherm Vapotherm O2 Flow Rate 35.00 40.00 50.00 FiO2 30 100 09/02/22 09/02/22 09/02/22 09/02/22 10:30 10:33 10:45 10:55 Pulse 114 114 Resp 34 28 B/P (MAP) 91/55 (67) 111/59 90/56 (67) Pulse Ox 100 100 98 O2 Delivery Vapotherm Vapotherm Vapotherm O2 Flow Rate 35.00 35.00 35.00 50.00 50.00 40.00 09/02/22 09/02/22 09/02/22 09/02/22 11:00 11:31 12:00 12:00 Temp 36.7 Pulse 114 116 Resp 39 25 B/P (MAP) 101/58 (72) 119/91 (100) Pulse Ox 98 97 95 O2 Delivery Vapotherm Vapotherm Vapotherm O2 Flow Rate 35.00 35.00 35.00 40.00 30.00 30.00 09/02/22 09/02/22 09/02/22 09/02/22 12:57 13:00 14:00 14:41 Pulse 112 108 111 Resp 34 28 B/P (MAP) 105/61 (76) 119/58 (78) Pulse Ox 95 92 O2 Delivery Vapotherm Vapotherm Vapotherm O2 Flow Rate 35.00 35.00 25.00 30.00 30.00 35.00 1/31/23 15:00 Pulse 118 Resp 28 B/P (MAP) 104/61 (75) Pulse Ox 96 O2 Delivery Vapotherm O2 Flow Rate 25.00 35.00 Constitutional: AAO x 3, well-developed, well-nourished Respiratory: No accessory muscle use, No respiratory distress; chest expansion is symmetric, chest is bilaterally symmetric, other (diminished throughout) Cardiovascular: irregularly irregular, tachycardia Gastrointestional: No tender; soft, audible bowel sounds Extremities: other (mod bilat LE swelling) Neurologic/Psychiatric: grossly intact (moves all extremities) Skin: No rash on exposed areas, No ulcerations on exposed areas Results/Procedures: Labs Laboratory Tests 09/02/22 04:17: White Blood Count 5.8, Red Blood Count 4.28L, Hemoglobin 13.8, Hematocrit 40, Mean Corpuscular Volume 94, Mean Corpuscular Hemoglobin 32, Mean Corpuscular Hemoglobin Concent 34, Red Cell Distribution Width 15.2H, Platelet Count 129L, Mean Platelet Volume 10.0, Immature Granulocyte % (Auto) 1, Neutrophils (%) (Auto) 82H, Lymphocytes (%) (Auto) 15, Monocytes (%) (Auto) 2, Eosinophils (%) (Auto) 0, Basophils (%) (Auto) 0, Neutrophils # (Auto) 4.8, Lymphocytes # (Auto) 0.9L, Monocytes # (Auto) 0.1, Eosinophils # (Auto) 0.0, Basophils # (Auto) 0.0, Immature Granulocyte # (Auto) 0.1, Sodium Level 136, Potassium Level 4.3, Chloride Level 100, Carbon Dioxide Level 23, Anion Gap 13, Blood Urea Nitrogen 22H, Creatinine 1.03, Estimat Glomerular Filtration Rate 75, BUN/Creatinine Ratio 21, Glucose Level 251H, Calcium Level 9.3, Corrected Calcium 9.9, Total Bilirubin 0.9, Aspartate Amino Transf (AST/SGOT) 30, Alanine Aminotransferase (ALT/SGPT) 71H, Alkaline Phosphatase 69, B-Type Natriuretic Peptide 34.1, Total Protein 6.8, Albumin 3.3 09/02/22 05:27: Blood Gas Puncture Site UNK, Blood Gas Patient Temperature 36.3, Arterial Blood pH 7.41, Arterial Blood Partial Pressure CO2 41, Arterial Blood Partial Pressure O2 118H, Arterial Blood HCO3 26, Arterial Blood Total CO2 27.0, Arterial Blood Oxygen Saturation 100, Arterial Blood Base Excess 1.4, Andrea Test YES-POS, Blood Gas Ventilator Setting NO, Blood Gas Inspired Oxygen 50% 09/02/22 12:43: Procalcitonin 0.04 A/P: Assessment: Recent hospitalization at [facility] in [place], [place] d/t resp failure d/t pneumonia and Influenza A on 07-21-22 - transferred to [facility] in [place], [place] on 07-31-22 SSS. PAF with controlled vent response seen on tele of 08/23/22 (CHADSVASc score 6) - s/p pacemaker in 2019, followed by Dr Carpenter at [facility] - had been on apixaban for stroke prophylaxis since 08/23/22 - stopped (by medical services) d/t episode of hematuria - resumed on 08-28-22 UTI - management per medical services HTN HLD Pulmonary HTN - on sildenafil and chronic oxygen at home (prior to admission) - followed by Dr. Kaur of pulmonary services in [place], [place] CARLA DM 2 H/o previous CVA - Alexa 2016 - treated at [facility] - per pt source undetermined - no residual COPD H/o tobaccoism - quit 30 yrs ago Plan: HR not well controlled - unable to increase BB d/t hypotension on higher dose Increase Cardizem for rate control Monitor lab and replace electrolytes as indicated Give dose of Lasix today Further recs will be based on his hospital course EMETERIO HUYNH Sep 02, 2022 07:50
[2022-09-02] MEDS: UMECLIDINIUM BROMIDE (INCRUSE ELLIPTA) 7'S IH SCH (07:51)
[2022-09-02] MEDS ORDERED: FUROSEMIDE 40 MG/4 ML INJ (LASIX) IVP NR (08:30)
[2022-09-02] MEDS: SENNOSIDES 8.6 MG (SENOKOT) TAB PO SCH ×2 (08:51→20:53)
[2022-09-02] MEDS: APIXABAN 5 MG (ELIQUIS) TABLET PO SCH ×2 (08:51→20:52)
[2022-09-02] MEDS: ASPIRIN 81 MG CHEW (CHILDREN'S ASA) PO SCH (08:51)
[2022-09-02] MEDS: SILDENAFIL 20 MG (REVATIO) TAB PO SCH (08:51)
[2022-09-02] MEDS: meTOprolol TARTRATE 25 MG (LOPRESSOR) TABLET PO SCH ×3 (08:51→20:52)
[2022-09-02] MEDS: SENNA W/DOCUSATE (SENOKOT S) TABLET PO SCH ×2 (08:51→20:53)
--- NOTE | 2022-09-02 08:51 | Diagnostic Imaging Report ---
INDICATION: Followup shortness of air. COMPARED: 09/01/2022. FINDINGS: There is poor inspiratory volume crowding the lung markings. There are 5 lobed coarse mixed interstitial and airspace opacities, some of which is likely chronic; however, elements of edema and/or pneumonia superimposed are suspected. No appreciable pleural fluid. No pneumothorax. A pacemaker battery overlies the left chest. IMPRESSION: Similar 5 lobed largely interstitial pulmonary opacities with interval reduction in lung volumes. No other adverse change or acute pleural pathology. Dictated by: Dictated on workstation # [id number]
[2022-09-02] MEDS: polyethylene glycoL POWDER 17 GM (MIRALAX) PACK PO SCH ×2 (08:52→20:52)
[2022-09-02] MEDS ORDERED: dilTIAZem120 MG (CARDIZEM CD) CAP PO NR (09:00)
[2022-09-02] MEDS ORDERED: meTOprolol TARTRATE 25 MG (LOPRESSOR) TABLET PO SCH (09:00)
[2022-09-02] MEDS ORDERED: DOCUSATE SODIUM 100 MG (COLACE) CAP PO SCH (09:00)
--- NOTE | 2022-09-02 09:05 | Wound Care Assessment ---
Wound Care Assessment Date Seen by Provider: Sep 02, 2022 Time Seen by Provider: 08:59 Chief Complaint Sacral ulcer HPI This pleasant 77 year old gentleman was admitted to rehab from [facility] following a prolonged stay for pneumonia and debility. He denies a h/o DM2 despite past diagnosis. He plan to move in with his son and daughter in law upon discharge. He does have some stress incontinence which has likely contributed to his issues with skin breakdown. Cushioning while in chair is warranted, frequent positional changes and avoiding "scooting" with transfers. Thick layer of barrier ointment throughout the day would be warranted to prevent new moisture related injuries. If he wears adult briefs, frequent changes when soiled would assist also. I did reevaluate today and see no open areas with drainage today. Past Medical History: Admits Diabetes Type II, Admits Heart Disease Atrial fibrillation s/p pacer, CVA, pulmonary fibrosis with COPD (baseline on 2L O2), generalized weakness and debility. Obesity Recreational Drug Use: No Alcohol Use: Denies Use Review of Systems General: Other (Weakness, debility, obesity) Pulmonary: Dyspnea Cardiovascular: Paroxysmal Noc. Dyspnea Neurological: Weakness Exam Vital Signs Date Time Temp Pulse Resp B/P (MAP) Pulse Ox O2 Delivery O2 Flow Rate FiO2 09/02/22 07:52 93 Vapotherm 30.00 50 09/02/22 07:38 36.3 122 33 119/85 (96) Capillary Refill : General Appearance: obese HEENT: other (hearing wnl) Neck: full range of motion Cardiovascular: no edema Respiratory: other (SOA. On continuous high flow oxygen) Extremities: no pedal edema Neurologic/Psychiatric: alert, normal mood/affect, oriented x 3 Skin Problem Location: other (sacrum/buttock) Skin Character: erythema Wound assessment: The area is epithelialized. There is chronic hyperpigmentation due to MASD from urinary incontinence Results Laboratory Tests 09/02/22 04:17: White Blood Count 5.8, Red Blood Count 4.28L, Hemoglobin 13.8, Hematocrit 40, Mean Corpuscular Volume 94, Mean Corpuscular Hemoglobin 32, Mean Corpuscular Hemoglobin Concent 34, Red Cell Distribution Width 15.2H, Platelet Count 129L, Mean Platelet Volume 10.0, Immature Granulocyte % (Auto) 1, Neutrophils (%) (A uto) 82H, Lymphocytes (%) (Auto) 15, Monocytes (%) (Auto) 2, Eosinophils (%) (Auto) 0, Basophils (%) (Auto) 0, Neutrophils # (Auto) 4.8, Lymphocytes # (Auto) 0.9L, Monocytes # (Auto) 0.1, Eosinophils # (Auto) 0.0, Basophils # (Auto) 0.0, Immature Granulocyte # (Auto) 0.1, Sodium Level 136, Potassium Level 4.3, Chloride Level 100, Carbon Dioxide Level 23, Anion Gap 13, Blood Urea Nitrogen 22H, Creatinine 1.03, Estimat Glomerular Filtration Rate 75, BUN/Creatinine Ratio 21, Glucose Level 251H, Calcium Level 9.3, Corrected Calcium 9.9, Total Bilirubin 0.9, Aspartate Amino Transf (AST/SGOT) 30, Alanine Aminotransferase (ALT/SGPT) 71H, Alkaline Phosphatase 69, B-Type Natriuretic Peptide 34.1, Total Protein 6.8, Albumin 3.3 09/02/22 05:27: Blood Gas Puncture Site UNK, Blood Gas Patient Temperature 36.3, Arterial Blood pH 7.41, Arterial Blood Partial Pressure CO2 41, Arterial Blood Partial Pressure O2 118H, Arterial Blood HCO3 26, Arterial Blood Total CO2 27.0, Arterial Blood Oxygen Saturation 100, Arterial Blood Base Excess 1.4, Andrea Test YES-POS, Blood Gas Ventilator Setting NO, Blood Gas Inspired Oxygen 50% Assessment/Plan/Dx Assessment: 1. MASD 2. Obesity 3. Generalized weakness with immobility Plan: 1. Continue to protect with thick layer barrier ointment bid and prn 2. Frequent changes of briefs when soiled 3. Positional changes to avoid new pressure injuries 4. Increased mobility (when safe to do so) 5. I will sign off. Please do not hesitate to call if new issues develop BLANCA LOGAN MD Sep 02, 2022 09:05
[2022-09-02] MEDS ORDERED: NS IV 500 ML 500 ML IV PRN (09:45)
--- NOTE | 2022-09-02 10:26 | History & Physical ---
ANDREINA MARKS 09/02/22 1026: History of Present Illness History of Present Illness Reason for visit/HPI Gulshan Mackenzie is a pleasant 77 yo M who is being transferred from Cardiac Step- down to the ICU for tachycardia with atrial fibrillation and closer observation of his pulmonary status. He was admitted to Inpatient Rehab on 08/21/2022. Per admission note: "Gulshan Mackenzie is a 77-year-old male with history of a-fib s/p pacemaker plac ement, pulmonary fibrosis, COPD with recent exacerbation, CVA, hypertension, and hyperlipidemia who was admitted to acute rehab at [facility] on 08/21 following hospitalization 07/31- 08/21/22 from [facility] for weakness and debilitation following COPD exacerbation secondary to viral pneumonia. While at [facility] he was treated with IV ceftriaxone and cefe pime which also covered for a UTI which grew pseudomonas. He endorses a non- productive cough, and shortness of breath as well as his position sensory deficits on his left side. Denies chest pain, abdominal pain, vision/hearing changes. Bowels are moving, and upon standing he has leakage of urine. Plan to go back home with son and Daughter in law upon discharge." He had been working with PT/OT to improve strength and endurance. Cardiology has been following him since admit for chronic Afib and tachycardia. Yesterday on 09/01/2022, patient was transferred to the Cardiac Step-down Unit due to increased dyspnea. He denied chest pain and felt that is shortness of breath was "okay". Today he is alert and oriented while resting in bed. He appears to be in no acute distress. He is on BIPAP at 50% O2 flow rate. Denies any pain and feels that his breathing is "okay". He has not been ambulating since moving to the cardiac unit. Last bowel movement was yesterday and he is eating independently. Chest x-ray this morning notes "5 lobed largely interstitial pulmonary opacities with interval reduction in lung volumes." The patient regularly sees Dr. Kaur for pulmonology. When asked this morning of his opinion on going on a ventilator, the patient reports he does not want to be placed on one, but is unsure about the decision if there comes a point that he needs to be on a vent. Dr. Gabriel spoke with the patient's daughter, Karrie, last night and this morning about the ICU transfer and the probable need for placement on a ventilator. Date of Admission Sep 01, 2022 at 21:36 Date Seen by a Provider: Sep 02, 2022 Time Seen by a Provider: 07:55 I consulted on this patient on 09/02/22 1641 Attending Physician Clyde Gonzalez MD Admitting Physician Admitting Physician: Liyah Gabriel DO Attending Physician: Liyah Gabriel DO Consult Allergies and Home Medications Allergies Coded Allergies: No Known Allergies (Verified Allergy, Unknown, 08/21/22) Patient Home Medication List Home Medication List Reviewed: Yes Acetaminophen (Tylenol) 325 Mg Capsule, 650 MG PO Q6H PRN for PAIN-MILD (1-4) OR TEMPATURE, (Reported) Entered as Reported by: ANASTASIA FIGUEROA on 08/21/221215 Last Action: Reviewed Aspirin (Aspirin) 81 Mg Tab.chew, 81 MG PO DAILY, (Reported) Entered as Reported by: ANASTASIA FIGUEROA on 08/21/221215 Last Action: Reviewed Carvedilol (Carvedilol) 12.5 Mg Tablet, 12.5 MG PO BID, (Reported) Entered as Reported by: ANASTASIA FIGUEROA on 08/29/221446 Last Action: Reviewed Clopidogrel Bisulfate (Clopidogrel) 75 Mg Tablet, 75 MG PO DAILY, (Reported) Entered as Reported by: ANASTASIA FIGUEROA on 08/21/221215 Last Action: Reviewed Ezetimibe (Ezetimibe) 10 Mg Tablet, 10 MG PO HS, (Reported) Entered as Reported by: ANASTASIA FIGUEROA on 08/21/221215 Last Action: Reviewed Garlic (Garlic) 1,000 Mg Capsule, 2,000 MG PO DAILY, (Reported) Entered as Reported by: ANASTASIA FIGUEROA on 08/29/221446 Last Action: Reviewed Losartan Potassium (Losartan Potassium) 50 Mg Tablet, 50 MG PO HS, (Reported) Entered as Reported by: ANASTASIA FIGUEROA on 08/29/221446 Last Action: Reviewed Multivitamin with Minerals (Multivitamins with Minerals) 1 Each Tablet, 1 EACH PO DAILY, (Reported) Entered as Reported by: ANASTASIA FIGUEROA on 08/21/221215 Last Action: Reviewed Rosuvastatin Calcium (Rosuvastatin Calcium) 40 Mg Tablet, 40 MG PO HS, (Reported) Entered as Reported by: ANASTASIA FIGUEROA on 08/29/22 1407 Last Action: Reviewed Past Krjwcks-Zmnvws-Ubmsur Hx Immunizations Up To Date Date of Influenza Vaccine: Apr 21, 2022 Current Status Primary Language: Lithuanian Past Medical History Surgeries: Eye Surgery, Pacemaker Currently Using CPAP: No Currently Using BIPAP: No Atrial Fibrillation, Chronic Edema/Swelling, High Cholesterol, Hypertension Neuropathy, Stroke Benign Prostatic Hyperpl, Neurogenic Bladder Gastroesophageal Reflux Arthritis, Chronic Back Pain Review of Systems Constitutional: No fever; weakness EENTM: No hoarseness, No nose congestion Respiratory: No cough; dyspnea on exertion, short of breath; No wheezing Cardiovascular: No chest pain; other (tachycardia) Gastrointestinal: No abdominal pain, No loss of appetite, No nausea, No vo miting Genitourinary: No hematuria, No pain Musculoskeletal: No back pain Physical Exam Vital Signs Vital Signs - First Documented 09/01/22 09/02/22 21:20 07:52 Pulse 104 Resp 24 B/P (MAP) 122/75 (91) Pulse Ox 93 O2 Delivery Nasal Cannula O2 Flow Rate 9.00 FiO2 50 Capillary Refill : Height, Weight, BMI Height: '" Weight: lbs. oz. kg; 31.98 BMI Method: General Appearance: No Apparent Distress Eyes: Bilateral Eye EOMI HEENT: PERRL/EOMI; No Scleral Icterus (L), No Scleral Icterus (R) Neck: Full Range of Motion, Supple; No Lymphadenopathy (L), No Lymphadenopathy (R) Respiratory: Chest Non Tender, Lungs Clear; No Crackles; Other (on BIPAP) Cardiovascular: Irregularly Irregular, Tachycardia Gastrointestinal: Normal Bowel Sounds, Non Tender, Soft; No Distended, No Guarding Rectal: Deferred Back: No CVA Tenderness, No Vertebral Tenderness Extremity: Non Tender, No Calf Tenderness, No Pedal Edema Neurologic/Psychiatric: Alert, Oriented x3 Skin: Warm/Dry Lymphatic: No Adenopathy Assessment/Plan Assessment and Plan COPD exacerbation On BIPAP 50% flow rate Pulmonary Fibrosis Chest x-ray this morning Tachycardia HR sustained in the 140s/150s Atrial fibrillation Managed with Diltiazem and Metoprolol Pacemaker in place Hypertension Hyperlipidemia LIYAH GABRIEL DO 09/02/221938: Allergies and Home Medications Allergies Coded Allergies: No Known Allergies (Verified Allergy, Unknown, 08/21/22) Patient Home Medication List Acetaminophen (Tylenol) 325 Mg Capsule, 650 MG PO Q6H PRN for PAIN-MILD (1-4) OR TEMPATURE, (Reported) Entered as Reported by: ANASTASIA FIGUEROA on 08/21/221215 Last Action: Reviewed Aspirin (Aspirin) 81 Mg Tab.chew, 81 MG PO DAILY, (Reported) Entered as Reported by: ANSATASIA FIGUEROA on 08/21/221215 Last Action: Reviewed Carvedilol (Carvedilol) 12.5 Mg Tablet, 12.5 MG PO BID, (Reported) Entered as Reported by: ANASTASIA FIGUEROA on 08/29/221446 Last Action: Reviewed Clopidogrel Bisulfate (Clopidogrel) 75 Mg Tablet, 75 MG PO DAILY, (Reported) Entered as Reported by: ANASTASIA FIGUEROA on 08/21/221215 Last Action: Reviewed Ezetimibe (Ezetimibe) 10 Mg Tablet, 10 MG PO HS, (Reported) Entered as Reported by: ANASTASIA FIGUEROA on 08/21/221215 Last Action: Reviewed Garlic (Garlic) 1,000 Mg Capsule, 2,000 MG PO DAILY, (Reported) Entered as Reported by: ANASTASIA FIGUEROA on 08/29/221446 Last Action: Reviewed Losartan Potassium (Losartan Potassium) 50 Mg Tablet, 50 MG PO HS, (Reported) Entered as Reported by: ANASTASIA FIGUEROA on 08/29/221446 Last Action: Reviewed Multivitamin with Minerals (Multivitamins with Minerals) 1 Each Tablet, 1 EACH PO DAILY, (Reported) Entered as Reported by: ANASTASIA FIGUEROA on 08/21/221215 Last Action: Reviewed Rosuvastatin Calcium (Rosuvastatin Calcium) 40 Mg Tablet, 40 MG PO HS, (Reported) Entered as Reported by: ANASTASIA FIGUEROA on 08/29/221446 Last Action: Reviewed Assessment/Plan Assessment and Plan Acute on chronic respiratory failure requiring transfer from [facility] to [facility] ICU on Vapotherm and BiPAP at high risk for intubation Atrial fibrillation (Follows with Dr. Carpenter) - AV block s/p pacemaker placement; rate and rhythm controlled. 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) - Still has position deficits in leg, motor and strength almost back to normal - On clopidegril and baby aspirin - Continue statin - COPD (Follows with [facility]) - Recent exacerbation - on 2L baseline, currently requiring more - continue incruse ellipta (LAMA) - DuoNebs PRN Pulmonary Fibrosis (diagnosed 3 months ago) - on sildenafil 20 - As above for COPD treatment PRN Urinary incontinence - Hodgson previous - Not currently taking reductase inhibitors/alpha blockers - Bladder scan for post void residual Hypertension - Hold home medication if normotensive T2DM - Monitor blood sugar - ISS as needed, adjust with exercise Hx of sleep apnea - Does not tolerate CPAP, uses 2L O2 NC at night - Baseline 2L Hematuria on 08/24/2022 -Hold anticoagulation and check urine UTI Pseudomonas Plan: Consult Cardiology Home meds O2 Monitor closely 08/22/2022: Patient doing well 08/23/2022: Eliquis 08/24/2022: Hold anticoagulation Check UA 08/25/2022: Change abx to Cipro and await UCx 08/26/2022: F/U on UCx Monitor closely 08/27/2022: Complete abx Hold OAC until UTI treated 08/28/2022: Monitor HR Appreciated Dr Barnes 08/29/2022: Restarted OAC yesterday Complete abx for UTI 08/30/2022: Complete abx 08/31/2022: Complete antibiotics today 09/01/2022: IV steroids Admission Diagnosis Admission Status: Inpatient Order (span 2 midnights) Reason for Inpatient Admission: resp failure Supervisory-Addendum Brief Verification & Attestation Participated in pt care: history, MDM, physical Personally performed: exam, history, MDM, supervision of care Care discussed with: Medical Student Procedures: n/a Results interpretation: Verified all documentation Verification and Attestation of Medical Student E/M Service A medical student performed and documented this service in my presence. I reviewed and verified all information documented by the medical student and made modifications to such information, when appropriate. I personally performed the physical exam and medical decision making. Liyah Gabriel, Sep 02, 2022,19:37 ANDREINA MARKS Sep 02, 2022 10:26 LIYAH GABRIEL DO Sep 02, 2022 19:39
[2022-09-02] MEDS: NEO/POLY/BAC (NEOSPORIN) OINT 15 GM TUBE TOP SCH ×2 (10:33→20:53)
[2022-09-02] MEDS: dilTIAZem DRIP PRE-MIX 125 ML IV SCH (10:33)
--- NOTE | 2022-09-02 11:46 | Consultation-Cardiology ---
HPI-Cardiology Cardiology Consultation: Date of Consultation 09/02/22 Time Seen by a Provider: 10:30 Date of Admission Attending Physician Clyde Gonzalez MD Admitting Physician Admitting Physician: Liyah Rust DO Attending Physician: Liyah Rust DO Consulting Physician EDUARDO LANE MD, MA, FACP, FACC, FSCAI, CCDS Physician requesting consult: Dr Rust HPI: Chief Complaint: Reason for Card consult: Resp failure 77 yo man who was on the Inpt Rehab floor under Dr Rust and who developed increasing shortness of breath and decreasing oxygen sat yesterday evening. He was d/c'd from Rehab and admitted to Dr Rust in ICU. He denies cp. He reports shortness of breath is somewhat better today. He denies palp or syncope. He denies n/v/d. Has gen weakness and malaise. Stamina for any physical activity is poor Review of Systems-Cardiology Review of Systems Constitutional: As described under HPI Eyes: No vision change Ears/Nose/Throat: No ear discharge, No nasal drainage, No recent hearing loss Respiratory: As described under HPI Cardiovascular: As described under HPI Gastrointestinal: As described under HPI Genitourinary: No dysuria Musculoskeletal: No joint pain Skin: No rash, No ulcerations Psychiatric/Neurological: No seizure, No focal weakness, No syncope Hematologic: No bleeding abnormalities TGS-Jjijgr-Ltzhqw Hx Immunizations Up To Date Date of Influenza Vaccine: Apr 21, 2022 Past Medical History PMH As described under Assessment. Family Medical History Family Medical History: Denies any family h/o CAD. Allergies and Home Medications Allergies Coded Allergies: No Known Allergies (Verified Allergy, Unknown, 08/21/22) Patient Home Medication List Home Medication List Reviewed: Yes Acetaminophen (Tylenol) 325 Mg Capsule, 650 MG PO Q6H PRN for PAIN-MILD (1-4) OR TEMPATURE, (Reported) Entered as Reported by: ANASTASIA FIGUEROA on 08/21/22 1216 Aspirin (Aspirin) 81 Mg Tab.chew, 81 MG PO DAILY, (Reported) Entered as Reported by: ANASTASIA FIGUEROA on 08/21/22 1216 Carvedilol (Carvedilol) 12.5 Mg Tablet, 12.5 MG PO BID, (Reported) Entered as Reported by: ANASTASIA FIGUEROA on 08/29/22 1447 Clopidogrel Bisulfate (Clopidogrel) 75 Mg Tablet, 75 MG PO DAILY, (Reported) Entered as Reported by: ANASTASIA FIGUEROA on 08/21/22 1216 Ezetimibe (Ezetimibe) 10 Mg Tablet, 10 MG PO HS, (Reported) Entered as Reported by: ANASTASIA FIGUEROA on 08/21/22 1216 Garlic (Garlic) 1,000 Mg Capsule, 2,000 MG PO DAILY, (Reported) Entered as Reported by: ANASTASIA FIGUEROA on 08/29/22 1447 Losartan Potassium (Losartan Potassium) 50 Mg Tablet, 50 MG PO HS, (Reported) Entered as Reported by: ANASTASIA FIGUEROA on 08/29/22 1447 Multivitamin with Minerals (Multivitamins with Minerals) 1 Each Tablet, 1 EACH PO DAILY, (Reported) Entered as Reported by: ANASTASIA FIGUEROA on 08/21/22 1216 Rosuvastatin Calcium (Rosuvastatin Calcium) 40 Mg Tablet, 40 MG PO HS, (Reported) Entered as Reported by: ANASTASIA FIGUEROA on 08/29/22 1447 Physical Exam-Cardiology Physical Exam Vital Signs/I&O 09/02/22 09/02/22 09/02/22 09/02/22 00:00 00:35 00:48 00:58 Temp 36.5 Pulse 95 97 97 Resp 25 34 19 B/P (MAP) 114/75 (88) Pulse Ox 92 94 95 O2 Delivery Nasal Cannula NIV Bilevel O2 Flow Rate 9.00 50.00 50.00 09/02/22 09/02/22 09/02/22 09/02/22 01:00 01:00 02:00 02:19 Pulse 100 100 98 Resp 25 16 B/P (MAP) 93/69 (77) 128/68 (88) Pulse Ox 95 96 94 O2 Delivery NIV Bilevel NIV Bilevel OxyMask O2 Flow Rate 50.00 50.00 9.00 09/02/22 09/02/22 09/02/22 09/02/22 02:53 03:04 04:29 07:00 Pulse 93 102 123 Resp 18 19 B/P (MAP) 102/73 (83) Pulse Ox 93 96 96 O2 Delivery NIV Bilevel NIV Bilevel O2 Flow Rate 50.00 50.00 50.00 09/02/22 09/02/22 09/02/2231/23 07:38 07:52 08:00 10:00 Temp 36.3 Pulse 122 128 Resp 33 20 B/P (MAP) 119/85 (96) 97/67 (77) Pulse Ox 93 93 92 95 O2 Delivery NIV Bilevel Vapotherm Vapotherm Vapotherm O2 Flow Rate 50.00 30.00 FiO2 50 30 09/02/22 09/02/22 09/02/22 09/02/22 10:15 10:19 10:30 10:33 Pulse 114 114 Resp 26 34 B/P (MAP) 99/58 (72) 91/55 (67) 111/59 Pulse Ox 100 100 100 O2 Delivery Vapotherm Vapotherm Vapotherm O2 Flow Rate 35.00 40.00 35.00 50.00 50.00 FiO2 100 09/02/22 09/02/22 09/02/22 09/02/22 10:45 10:55 11:00 11:31 Pulse 114 114 Resp 28 39 B/P (MAP) 90/56 (67) 101/58 (72) Pulse Ox 100 98 98 97 O2 Delivery Vapotherm Vapotherm Vapotherm Vapotherm O2 Flow Rate 35.00 35.00 35.00 35.00 50.00 40.00 40.00 30.00 Capillary Refill : Constitutional: AAO x 3, well-developed, well-nourished Respiratory: No accessory muscle use, No respiratory distress; chest expansion is symmetric, chest is bilaterally symmetric, other (diminished throughout) Cardiovascular: irregularly irregular, tachycardia, systolic murmur (soft ELDER at card base) Gastrointestinal: No tender; soft, audible bowel sounds Extremities: other (mod bilat LE swelling) Neurologic/Psychiatric: oriented x 3, other (moves all limbs equally) Skin: No rash on exposed areas, No ulcerations on exposed areas Data Review Labs Laboratory Tests 09/02/22 04:17: White Blood Count 5.8, Red Blood Count 4.28L, Hemoglobin 13.8, Hematocrit 40, Mean Corpuscular Volume 94, Mean Corpuscular Hemoglobin 32, Mean Corpuscular Hemoglobin Concent 34, Red Cell Distribution Width 15.2H, Platelet Count 129L, Mean Platelet Volume 10.0, Immature Granulocyte % (Auto) 1, Neutrophils (%) (Auto) 82H, Lymphocytes (%) (Auto) 15, Monocytes (%) (Auto) 2, Eosinophils (%) (Auto) 0, Basophils (%) (Auto) 0, Neutrophils # (Auto) 4.8, Lymphocytes # (Auto) 0.9L, Monocytes # (Auto) 0.1, Eosinophils # (Auto) 0.0, Basophils # (Auto) 0.0, Immature Granulocyte # (Auto) 0.1, Sodium Level 136, Potassium Level 4.3, Chloride Level 100, Carbon Dioxide Level 23, Anion Gap 13, Blood Urea Nitrogen 22H, Creatinine 1.03, Estimat Glomerular Filtration Rate 75, BUN/Creatinine Ratio 21, Glucose Level 251H, Calcium Level 9.3, Corrected Calcium 9.9, Total Bilirubin 0.9, Aspartate Amino Transf (AST/SGOT) 30, Alanine Aminotransferase (ALT/SGPT) 71H, Alkaline Phosphatase 69, B-Type Natriuretic Peptide 34.1, Total Protein 6.8, Albumin 3.3 09/02/22 05:27: Blood Gas Puncture Site UNK, Blood Gas Patient Temperature 36.3, Arterial Blood pH 7.41, Arterial Blood Partial Pressure CO2 41, Arterial Blood Partial Pressure O2 118H, Arterial Blood HCO3 26, Arterial Blood Total CO2 27.0, Arterial Blood Oxygen Saturation 100, Arterial Blood Base Excess 1.4, Andrea Test YES-POS, Blood Gas Ventilator Setting NO, Blood Gas Inspired Oxygen 50% A/P-Cardiology Assessment/Admission Diagnosis Acute on chronic resp failure - Recent hospitalization at [facility] in [place], [place] d/t resp failure d/t pneumonia and Influenza A on 07-21-22 - transferred to [facility] in [place], [place] on 07-31-22 - admitted to [facility] in mid Aug 2022 - Pulmonary HTN of undetermined etiology - on sildenafil and chronic oxygen at home (prior to admission) - followed by Dr. Kaur of pulmonary services in [place], [place]. PAF with controlled vent response seen on tele of 08/23/22 (CHADSVASc score 6) - s/p pacemaker in 2018, followed by Dr Carpenter at [facility] - had been on apixaban for stroke prophylaxis since 08/23/22 - stopped (by medical services) d/t episode of hematuria - resumed on 08-28-22 UTI - management per medical services H/o HTN H/o HLD CARLA DM 2 H/o previous CVA - Alexa 2017 - treated at [place] - per pt source undetermined - no residual COPD H/o tobaccoism - quit 30 yrs ago Discussion and Recomendations * Pulm htn and ac on ch resp failure management is with the Med and ICU svce * He is currently in sinus tach that is likely due to gen weakness and ac resp failure * Continue BB and dilt because of a h/o PAF * Echo to eval LVEF * Monitor labs EDUARDO LANE MD FACP FACC CCDS Sep 02, 2022 11:46
--- NOTE | 2022-09-02 12:34 | Tele-ICU Consult ---
History of Present Illness History of Present Illness Date Seen by Provider: Sep 02, 2022 Time Seen by Provider: 12:32 Date of Admission (Tele-ICU Physician , consultation as per request of PCP Service provided via interactive audio and video telecommunications E-CARE system to a patient admitted to ICU bed in [facility]. Available chart/ vitals / labs / Images reviewed H&P is from ER notes Patient's information available about PMH, Shx, Fhx allergy reviewed inEMR. ROS as per chart and RN report Now in ICU, hemodynamically stable Video assessment done using teleICU camera, rest of exam as per RN Discussed with RN. Consultants: Hospital course: Recent hospitalization at [facility] in [place], [place] d/t resp failure d/t pneumonia and Influenza A on 07-21-22 - transferred to [facility] in [place], [place] on 07-31-22 transferrred to rechab [facility]IMAS 08/21/2022 09/01/22 -admitted to hospital with increased O2 needs 09/02/22- to ICU with afib RVR A/P Afute on chronic resp failure -- on VT 50% 35L now ( prior on 4-5 L NC ) CXR with significant infiltrates , but reported h/o recent PNA and pulm fibrosis and no comparison images available - less likely PE ( was on NOAC ) - with reported exam by RN , suspect AECOPD , but will check PCT - cont iv steroid , keep negative fluid status SINUS tach - monitor - as per cardiology h/o PAF - s/p pacemaker in 2018, f - on apixaban 08/23/22 - stopped d/t episode of hematuria - resumed on 08-28-22 recent tx for UTI - management per medical services DM II - ISS H/o previous CVA 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) Pulmonary Fibrosis (diagnosed 3 months ago) - ? etiology and plans of Tx - baselinbe 2 L ( prior to recent illness ) Pulmonary HTN - on sildenafil and chronic oxygen at home (prior to admission) - followed by Dr. Kaur of pulmonary services in [place], [place] CARLA Does not tolerate CPAP, uses 2L O2 NC at night Lines : PICC , (Central Line Necessity Reviewed) Hodgson: void OG: Nutrition: Analgesia: Anxiety/ delirium VTE Prophylaxis: eliquis Stress Ulcer Prophylaxis: na Plans in collaboration with bedside consultants and IM MDs. Discussed with RN to reach out if any questions or concerns A total of 33 minutes of critical care time was devoted to this patient today, required to treat and/or prevent further deterioration of critical care condition ( as above ) . I am remotely monitoring this patient from another state. I am unable to do the bedside exam, and history/physical and pertinent information is taken from other notes in the computer and bedside staff. . Allergies and Home Medications Allergies Coded Allergies: No Known Allergies (Verified Allergy, Unknown, 08/21/22) Home Medications Acetaminophen 325 Mg Capsule, 650 MG PO Q6H PRN for PAIN-MILD (1-4) OR TEMPATURE, (Reported) Aspirin 81 Mg Tab.chew, 81 MG PO DAILY, (Reported) Carvedilol 12.5 Mg Tablet, 12.5 MG PO BID, (Reported) Clopidogrel Bisulfate 75 Mg Tablet, 75 MG PO DAILY, (Reported) Ezetimibe 10 Mg Tablet, 10 MG PO HS, (Reported) Garlic 1,000 Mg Capsule, 2,000 MG PO DAILY, (Reported) Losartan Potassium 50 Mg Tablet, 50 MG PO HS, (Reported) Multivitamin with Minerals 1 Each Tablet, 1 EACH PO DAILY, (Reported) Rosuvastatin Calcium 40 Mg Tablet, 40 MG PO HS, (Reported) Past Medical/Social/Family Hx Current Status Primary Language: [place] Review of Systems Constitutional: see HPI Focused Exam Height, Weight, BMI Height: '" Weight: lbs. oz. kg; 31.98 BMI Method: Exam Exam Patient acknowledged, consented, and participated in this virtual visit which was conducted using real time audio/video Vital Signs Date Time Temp Pulse Resp B/P (MAP) Pulse Ox O2 Delivery O2 Flow Rate FiO2 09/02/22 12:00 116 25 119/91 (100) 95 Vapotherm 35.00 30.00 09/02/22 11:31 97 Vapotherm 35.00 30.00 09/02/22 11:00 114 39 101/58 (72) 98 Vapotherm 35.00 40.00 09/02/22 10:55 98 Vapotherm 35.00 40.00 09/02/22 10:45 114 28 90/56 (67) 100 Vapotherm 35.00 50.00 09/02/22 10:33 111/59 09/02/22 10:30 114 34 91/55 (67) 100 Vapotherm 35.00 50.00 09/02/22 10:19 100 Vapotherm 40.00 100 09/02/22 10:15 114 26 99/58 (72) 100 Vapotherm 35.00 50.00 09/02/22 10:00 128 20 97/67 (77) 95 Vapotherm 09/02/22 08:00 92 Vapotherm 30 09/02/22 07:52 93 Vapotherm 30.00 50 09/02/22 07:38 36.3 122 33 119/85 (96) 93 NIV Bilevel 50.00 09/02/22 07:00 123 09/02/22 04:29 102 19 102/73 (83) 96 NIV Bilevel 50.00 09/02/22 03:04 93 18 96 50.00 09/02/22 02:53 93 NIV Bilevel 50.00 09/02/22 02:19 94 OxyMask 9.00 09/02/22 02:00 98 16 128/68 (88) 96 NIV Bilevel 50.00 09/02/22 01:00 100 09/02/22 01:00 100 25 93/69 (77) 95 NIV Bilevel 50.00 09/02/22 00:58 36.5 09/02/22 00:48 97 19 95 50.00 09/02/22 00:35 97 34 94 NIV Bilevel 50.00 09/02/22 00:00 95 25 114/75 (88) 92 Nasal Cannula 9.00 09/01/22 23:00 96 26 102/64 (77) 95 Nasal Cannula 9.00 09/01/22 22:54 98 95 09/01/22 22:16 103 09/01/22 22:07 98 31 112/73 (86) 95 Nasal Cannula 9.00 09/01/22 21:30 Nasal Cannula 8.00 09/01/22 21:30 36.3 09/01/22 21:28 102 35 126/74 (91) 92 Nasal Cannula 9.00 09/01/22 21:20 104 24 122/75 (91) 93 Nasal Cannula 9.00 I & O 09/02/22 07:00 Intake Total 300 ml Balance 300 ml Height & Weight Height: '" Weight: lbs. oz. kg; 31.98 BMI Method: General Appearance: No Apparent Distress HEENT: PERRL/EOMI; No Scleral Icterus (L), No Scleral Icterus (R) Neck: Full Range of Motion, Supple; No Lymphadenopathy (L), No Lymphadenopathy (R) Respiratory: Chest Non Tender, Lungs Clear; No Crackles; Other (on BIPAP) Cardiovascular: Irregularly Irregular, Tachycardia Extremity: Non Tender, No Calf Tenderness, No Pedal Edema Neurologic/Psychiatric: Alert, Oriented x3 Skin: Warm/Dry Lymphatic: No Adenopathy Results Lab Laboratory Tests 09/02/22 04:17 Assessment/Plan Assessment/Plan 1 PILI SANTO MD Sep 02, 2022 12:34
[2022-09-02] MEDS: eZETimibe 10 MG (ZETIA) TABLET PO SCH (20:52)
[2022-09-03] MEDS: methylPREDNISolone 125 MG (Solu-MEDROL) VIAL IVP SCH ×4 (00:15→18:52)
[2022-09-03] MEDS: RT-ALBUTEROL SULF 2.5 MG/3 ML PRE-MIX VIAL INH SCH ×5 (02:45→21:13)
[2022-09-03] MEDS: RT-IPRATROPIUM (ATROVENT) 0.5MG/2.5ML AMP IH SCH ×6 (02:45→21:14)
[2022-09-03 05:22] LABS: BASOPHILS % (AUTO) 0 % (0-10); EOSINOPHILS % (AUTO) 0 % (0-10); HEMATOCRIT 40 % (40-54); HEMOGLOBIN 13.3 g/dL (13.3-17.7); LYMPHOCYTES # (AUTO) 0.6 10^3/uL (1.0-4.0); LYMPHOCYTES % (AUTO) 4 % (12-44); MEAN CORPUSCULAR HEMOGLOBIN 32 pg (25-34); MEAN CORPUSCULAR HGB CONC 34 g/dL (32-36); MEAN CORPUSCULAR VOLUME 95 fL (80-99); MEAN PLATELET VOLUME 10.3 fL (9.0-12.2); MONOCYTES % (AUTO) 7 % (0-12); NEUTROPHILS # (AUTO) 12.8 10^3/uL (1.8-7.8); NEUTROPHILS % (AUTO) 87 % (42-75); PLATELET COUNT 156 10^3/uL (130-400); WHITE BLOOD COUNT 14.7 10^3/uL (4.3-11.0)
[2022-09-03 05:37] LABS: ABG BASE EXCESS -1.3 MMOL/L (-2.5-2.5); ABG OXYGEN SATURATION 93 % (94-100); ABG PCO2 36 MMHG (35-45); ABG PH 7.41 (7.37-7.43); ABG PO2 67 MMHG (79-93); ABG TCO2 23.7 MMOL/L (21.0-31.0)
[2022-09-03 05:38] LABS: ALLENS TEST YES-POS; INSPIRED O2 40%; PATIENT TEMP 37.3; VENTILATOR NO
[2022-09-03 05:45] LABS: ALBUMIN 3.3 GM/DL (3.2-4.5)
[2022-09-03 05:46] LABS: CALCIUM 9.1 MG/DL (8.5-10.1)
[2022-09-03 05:48] LABS: TOTAL PROTEIN 6.6 GM/DL (6.4-8.2)
[2022-09-03 05:49] LABS: BILIRUBIN,TOTAL 0.7 MG/DL (0.1-1.0)
[2022-09-03 05:51] LABS: CREATININE SERUM 1.21 MG/DL (0.60-1.30); PHOSPHORUS 3.3 MG/DL (2.3-4.7)
[2022-09-03 05:54] LABS: MAGNESIUM 2.2 MG/DL (1.6-2.4)
[2022-09-03 06:03] LABS: ANISOCYTOSIS SLIGHT; BAND NEUTROPHILS 3 %; LYMPHOCYTES % (MANUAL) 4 %; MONOCYTES % (MANUAL) 7 %; NEUTROPHILS % (MANUAL) 86 %
[2022-09-03] MEDS: POTASSIUM CL 10MEQ/50ML IVPB 50 ML IV SCH (06:13)
[2022-09-03] MEDS: MAGNESIUM 1 GM/100 ML IVPB 100 ML IV SCH (06:14)
[2022-09-03] MEDS: KCL 20 MEQ TAB (K-DUR) PO SCH (06:14)
[2022-09-03] MEDS: MULTIVIT W/MINERALS TAB (THERAGRAN M) PO SCH (06:20)
[2022-09-03] MEDS: PANTOPRAZOLE 40 MG (PROTONIX) TAB PO SCH (06:20)
[2022-09-03] MEDS: UMECLIDINIUM BROMIDE (INCRUSE ELLIPTA) 7'S IH SCH (06:53)
--- NOTE | 2022-09-03 08:02 | Diagnostic Imaging Report ---
CHEST 1 VIEW, AP/PA ONLY Indication: Dyspnea Comparison: 09/02/2022 Findings: Bilateral perihilar heterogeneous consolidations are unchanged. No appreciable pleural effusions or pneumothorax. Stable cardiomegaly with left pectoral transvenous pacemaker. Impression: 1. Unchanged diffuse pulmonary opacities that may be due to edema, severe infection and/or ARDS. Dictated by: Dictated on workstation # [id number]
--- NOTE | 2022-09-03 08:41 | Progress Note - Cardiology ---
Cardiology SOAP Progress Note Subjective: Sitting up in bed C/O dyspnea this morning No c/o CP Dyspneic with conversation Objective: I&O/Vital Signs 09/03/22 09/03/22 09/03/22 09/03/22 03:00 03:40 04:00 04:00 Temp 37.3 Pulse 122 123 Resp 29 B/P (MAP) 97/63 (69) 119/86 (97) Pulse Ox 92 92 94 O2 Delivery Vapotherm Vapotherm Vapotherm O2 Flow Rate 25.00 25.00 40.00 40.00 FiO2 40 09/03/22 09/03/22 09/03/22 09/03/22 05:00 06:00 06:55 07:00 Pulse 124 121 122 B/P (MAP) 112/63 (79) 96/65 (75) 120/72 (88) Pulse Ox 92 92 90 92 O2 Delivery Vapotherm Vapotherm Vapotherm Vapotherm O2 Flow Rate 25.00 25.00 25.00 25.00 40.00 40.00 40.00 FiO2 40 09/03/22 09/03/22 09/03/22 09/03/22 07:02 07:30 08:00 08:00 Temp 37.3 Pulse 123 129 B/P (MAP) 118/74 (89) Pulse Ox 96 O2 Delivery Vapotherm Vapotherm O2 Flow Rate 25.00 25.00 60.00 60.00 09/03/22 09/03/22 09/03/22 09/03/22 09:00 10:00 10:25 11:00 Pulse 128 122 130 B/P (MAP) 132/90 (104) 127/63 (84) 120/59 (79) Pulse Ox 98 97 96 94 O2 Delivery Vapotherm Vapotherm Vapotherm Vapotherm O2 Flow Rate 25.00 25.00 25.00 25.00 60.00 60.00 60.00 FiO2 50 09/03/22 09/03/22 09/03/22 09/03/22 12:00 12:00 13:00 13:08 Temp 37.0 Pulse 131 124 122 B/P (MAP) 123/71 (88) 111/72 (85) Pulse Ox 90 94 O2 Delivery Vapotherm Vapotherm O2 Flow Rate 25.00 25.00 60.00 60.00 09/03/22 09/03/22 14:00 14:29 Pulse 134 B/P (MAP) Pulse Ox 94 95 O2 Delivery Vapotherm Vapotherm O2 Flow Rate 25.00 25.00 60.00 FiO2 45 09/03/22 00:00 Intake Total 1250 ml Balance 1250 ml Constitutional: AAO x 3, well-developed, well-nourished Respiratory: No accessory muscle use, No respiratory distress; chest expansion is symmetric, chest is bilaterally symmetric, other (diminished throughout; dyspneic with simple conversation) Cardiovascular: regular rate-rhythm, tachycardia, systolic murmur (soft ELDER at card base) Gastrointestional: No tender; soft, audible bowel sounds Extremities: No significant edema Neurologic/Psychiatric: oriented x 3, other (moves all limbs equally) Skin: No rash on exposed areas, No ulcerations on exposed areas Results/Procedures: Labs Laboratory Tests 09/03/22 03:57: White Blood Count 14.7H, Red Blood Count 4.17L, Hemoglobin 13.3, Hematocrit 40, Mean Corpuscular Volume 95, Mean Corpuscular Hemoglobin 32, Mean Corpuscular Hemoglobin Concent 34, Red Cell Distribution Width 15.9H, Platelet Count 156, Mean Platelet Volume 10.3, Immature Granulocyte % (Auto) 2, Neutrophils (%) (Auto) 87H, Lymphocytes (%) (Auto) 4L, Monocytes (%) (Auto) 7, Eosinophils (%) (Auto) 0, Basophils (%) (Auto) 0, Neutrophils # (Auto) 12.8H, Lymphocytes # (Auto) 0.6L, Monocytes # (Auto) 1.0, Eosinophils # (Auto) 0.0, Basophils # (Auto) 0.0, Immature Granulocyte # (Auto) 0.3H, Neutrophils % (Manual) 86, Lymphocytes % (Manual) 4, Monocytes % (Manual) 7, Band Neutrophils 3, Anisocytosis SLIGHT, Sodium Level 135, Potassium Level 4.0, Chloride Level 98, Carbon Dioxide Level 19L, Anion Gap 18H, Blood Urea Nitrogen 30H, Creatinine 1.21, Estimat Glomerular Filtration Rate 62, BUN/Creatinine Ratio 25, Glucose Level 298H, Calcium Level 9.1, Corrected Calcium 9.7, Phosphorus Level 3.3, Magnesium Level 2.2, Total Bilirubin 0.7, Aspartate Amino Transf (AST/SGOT) 24, Alanine Aminotransferase (ALT/SGPT) 57H, Alkaline Phosphatase 67, Total Protein 6.6, Albumin 3.3 09/03/22 04:50: Blood Gas Puncture Site R RAD, Blood Gas Patient Temperature 37.3, Arterial Blood pH 7.41, Arterial Blood Partial Pressure CO2 36, Arterial Blood Partial Pressure O2 67L, Arterial Blood HCO3 23, Arterial Blood Total CO2 23.7, Arterial Blood Oxygen Saturation 93L, Arterial Blood Base Excess -1.3, Andrea Test YES- POS, Blood Gas Ventilator Setting NO, Blood Gas Inspired Oxygen 40% Procedures NAME: KARAN [facility]MANOZR [facility] REC#: [id number] PT STATUS: ADM IN : 1945 PHYSICIAN: DAYANA GABRIEL DO ADMIT DATE: 09/01/22/ICU Draft Date of Exam:09/03/22 CHEST 1 VIEW, AP/PA ONLY CHEST 1 VIEW, AP/PA ONLY Indication: Dyspnea Comparison: 09/02/2022 Findings: Bilateral perihilar heterogeneous consolidations are unchanged. No appreciable pleural effusions or pneumothorax. Stable cardiomegaly with left pectoral transvenous pacemaker. Impression: 1. Unchanged diffuse pulmonary opacities that may be due to edema, severe infection and/or ARDS. Dictated on workstation # [id number] Dict: 09/03/22722 Trans: 09/03/22 0802 TYRELL [id number] Interpreted by: CYNDI MARES MD Electronically signed by: A/P: Assessment: ?Pneumonia - management per eICU and medical services Acute on chronic resp failure - Recent hospitalization at [facility] in [place], [place] d/t resp failure d/t pneumonia and Influenza A on 07-21-22 - transferred to [facility] in [place], [place] on 07-31-22 - admitted to [facility] in mid Aug 2022 - Pulmonary HTN of undetermined etiology - on sildenafil and chronic oxygen at home (prior to admission) - followed by Dr. Kaur of pulmonary services in [place], [place] - deteriorating resp status requiring transfer to ICU on 09-02-22 - requiring Vapo-therm SSS. PAF with controlled vent response seen on tele of 08/23/22 (CHADSVASc score 6) - s/p pacemaker in 2019, followed by Dr Carpenter at [place], [place] - had been on apixaban for stroke prophylaxis since 08/23/22 - stopped (by medical services) d/t episode of hematuria - resumed on 08-28-22 - Echocardiogram of 09-02-22 showed LVEF 65-70%. Trivial AoR H/o HTN H/o HLD CARLA DM 2 H/o previous CVA - Alexa 2016 - treated at [place] - per pt source undetermined - no residual COPD H/o tobaccoism - quit 30 yrs ago Plan: * Pulm htn and ac on ch resp failure management is with the Med and ICU svce * He is currently in sinus tach that is likely due to gen weakness and ac resp failure * Continue BB and dilt because of a h/o PAF * Echo to eval LVEF * Monitor labs * Consider transfer to tertiary care facility with pulmonology services EMETERIO HUYNH Sep 03, 2022 08:41
[2022-09-03] MEDS: ASPIRIN 81 MG CHEW (CHILDREN'S ASA) PO SCH (08:57)
[2022-09-03] MEDS: SILDENAFIL 20 MG (REVATIO) TAB PO SCH (08:57)
[2022-09-03] MEDS: SENNA W/DOCUSATE (SENOKOT S) TABLET PO SCH ×2 (08:57→21:00)
[2022-09-03] MEDS: SENNOSIDES 8.6 MG (SENOKOT) TAB PO SCH ×2 (08:58→21:00)
[2022-09-03] MEDS: meTOprolol TARTRATE 25 MG (LOPRESSOR) TABLET PO SCH ×3 (08:59→20:54)
[2022-09-03] MEDS: APIXABAN 5 MG (ELIQUIS) TABLET PO SCH ×2 (09:02→20:54)
[2022-09-03] MEDS: NEO/POLY/BAC (NEOSPORIN) OINT 15 GM TUBE TOP SCH ×2 (09:04→20:54)
[2022-09-03] MEDS: polyethylene glycoL POWDER 17 GM (MIRALAX) PACK PO SCH ×2 (09:08→21:00)
[2022-09-03] MEDS: dilTIAZem DRIP PRE-MIX 125 ML IV SCH (09:45)
--- NOTE | 2022-09-03 10:46 | Progress Note ---
JARETJulissaHARJINDER LAURENT 09/03/22 1046: Subjective Date Seen by a Provider: Sep 03, 2022 Time Seen by a Provider: 10:22 Subjective/Events-last exam Upon follow-up for AoC respiratory failure 2/2 pulmonary fibrosis and PAF with RVR, Gulshan is sitting upright in bed, eating his breakfast, with Vapotherm in place (O2 flow at 25, and FiO2 at 40). He states that his appetite is intact, and has been urinating normally, without dysuria or frequency. He states that his last bowel movement was on Thursday, and further reports that he has not been sleeping well. Though, he does acknowledge that he refused CPaP, but states he will be more agreeable to using it tonight. He has been compliant with utilizing incentive spirometry on a daily basis. I did budget counselor him to use it more frequently to prevent atelectasis or a PNA. Gulshan denies feeling short of breath, though it should be noted that he appears dyspneic, tachypnic, with an O2 sat last measured at 90%. Repeat CXR did not reveal any changes to large insterstitial opacities noted on previous CXR, with no pleural pathology. Of note, patient is in RVR, with a heart rate of 131 BPM during my visit, and is being assessed by cardiology to achieve rate control. Review of Systems General: No Chills; Fatigue, Malaise HEENT: No Head Aches, No Visual Changes Pulmonary: Dyspnea; No Cough Cardiovascular: Other; No: Chest Pain Gastrointestinal: No: Nausea, Vomiting, Abdominal Pain Genitourinary: No Dysuria, No Frequency Musculoskeletal: No: neck pain, shoulder pain Neurological: Weakness; No: Numbness Focused Exam Respiratory: Chest Non Tender, No Accessory Muscle Use, No Respiratory Distress; No Crackles; Decreased Breath Sounds; No Rales, No Rhonci Cardiovascular: No JVD, Normal Peripheral Pulses, Tachycardia (Afib with RVR, presently has regular rhythm with tachycardia) Capillary Refill: Less Than 3 Seconds Peripheral Pulses: 2+ Radial Pulses (R), 2+ Radial Pulses (L) Skin: normal color, warm/dry Objective Exam Last Set of Vital Signs Vital Signs Date Time Temp Pulse Resp B/P (MAP) Pulse Ox O2 Delivery O2 Flow Rate FiO2 09/03/22 10:00 122 127/63 (84) 97 Vapotherm 25.00 60.00 09/03/22 08:00 37.3 09/03/22 06:55 40 09/03/22 03:00 29 Capillary Refill : I&O Intake and Output 09/03/22 00:00 Intake Total 1550 ml Balance 1550 ml Intake Oral 1550 ml # Urine Diapers 14 General: Alert, Oriented X3, Cooperative HEENT: Atraumatic, PERRLA, EOMI Neck: Supple, No JVD Lungs: Clear to Auscultation Heart: No Murmurs Abdomen: Normal Bowel Sounds, Soft Extremities: No Cyanosis, Normal Pulses Skin: No Breakdown, No Significant Lesion Neuro: Normal Speech, Strength at 5/5 X4 Ext Results Lab Laboratory Tests 09/02/22 12:43: Procalcitonin 0.04 09/03/22 03:57: White Blood Count 14.7H, Red Blood Count 4.17L, Hemoglobin 13.3, Hematocrit 40, Mean Corpuscular Volume 95, Mean Corpuscular Hemoglobin 32, Mean Corpuscular Hemoglobin Concent 34, Red Cell Distribution Width 15.9H, Platelet Count 156, Mean Platelet Volume 10.3, Immature Granulocyte % (Auto) 2, Neutrophils (%) (Auto) 87H, Lymphocytes (%) (Auto) 4L, Monocytes (%) (Auto) 7, Eosinophils (%) (Auto) 0, Basophils (%) (Auto) 0, Neutrophils # (Auto) 12.8H, Lymphocytes # (Auto) 0.6L, Monocytes # (Auto) 1.0, Eosinophils # (Auto) 0.0, Basophils # (Auto) 0.0, Immature Granulocyte # (Auto) 0.3H, Neutrophils % (Manual) 86, Lymphocytes % (Manual) 4, Monocytes % (Manual) 7, Band Neutrophils 3, Aniso cytosis SLIGHT, Sodium Level 135, Potassium Level 4.0, Chloride Level 98, Carbon Dioxide Level 19L, Anion Gap 18H, Blood Urea Nitrogen 30H, Creatinine 1.21, Estimat Glomerular Filtration Rate 62, BUN/Creatinine Ratio 25, Glucose Level 298H, Calcium Level 9.1, Corrected Calcium 9.7, Phosphorus Level 3.3, Magnesium Level 2.2, Total Bilirubin 0.7, Aspartate Amino Transf (AST/SGOT) 24, Alanine Aminotransferase (ALT/SGPT) 57H, Alkaline Phosphatase 67, Total Protein 6.6, Albumin 3.3 09/03/22 04:50: Blood Gas Puncture Site R RAD, Blood Gas Patient Temperature 37.3, Arterial Blood pH 7.41, Arterial Blood Partial Pressure CO2 36, Arterial Blood Partial Pressure O2 67L, Arterial Blood HCO3 23, Arterial Blood Total CO2 23.7, Arterial Blood Oxygen Saturation 93L, Arterial Blood Base Excess -1.3, Andrea Test YES- POS, Blood Gas Ventilator Setting NO, Blood Gas Inspired Oxygen 40% Radiology CHEST 1 VIEW, AP/PA ONLY Indication: Dyspnea Comparison: 09/02/2022 Findings: Bilateral perihilar heterogeneous consolidations are unchanged. No appreciable pleural effusions or pneumothorax. Stable cardiomegaly with left pectoral transvenous pacemaker. Impression: 1. Unchanged diffuse pulmonary opacities that may be due to edema, severe infection and/or ARDS. Assessment/Plan Assessment/Plan Assess & Plan/Chief Complaint AoC Respiratory failure Pulmonary Fibrosis COPD -On vapotherm -IS 10x/hr -Duoneb PRN, Incruse Ellipta Inhaler, and Albuterol -On Sildenafil -On Solumedrol Afib with RVR -S/P pacemaker placement (2019) -Cardiology consulted and appreciated -On Eliquis and Lopressor -Recent increase in PO Diltiazem, now taking 240mg, in addition to 125ml IVP @ 5mls/hr -Did have an echocardiogram, which revealed an LVEF of 65-70%, with no major abnormalities noted -Plan is to achieve rate control prior to placement in [place] CARLA -Has not been sleeping well, and does not tolerate CPaP -Patient states that he will try the CPAP tonight General debility -Consider PT/OT R MCA CVA, 2017 - Still has position deficits in leg, motor and strength almost back to normal -On Plavix, Aspirin, Zetia HTN On Lopressor HLD On Zetia DM2 Diabetic diet Not presently on anti-diabetic medication GI PPX Protonix LIYAH GABRIEL DO 09/04/22 0510: Subjective Review of Systems General: Fatigue, Malaise Pulmonary: Dyspnea Objective Exam General: Alert, Oriented X3, Cooperative, Mild Distress Lungs: Clear to Auscultation Heart: Other (irr irr tachy) Psych/Mental Status: Mental Status NL, Mood NL Assessment/Plan Assessment/Plan Assess & Plan/Chief Complaint Heart rate control Eval for [place] Supervisory-Addendum Brief Verification & Attestation Participated in pt care: history, MDM, physical Personally performed: exam, history, MDM, supervision of care Care discussed with: Medical Student Procedures: n/a Results interpretation: Verified all documentation Verification and Attestation of Medical Student E/M Service A medical student performed and documented this service in my presence. I reviewed and verified all information documented by the medical student and made modifications to such information, when appropriate. I personally performed the physical exam and medical decision making. Liyah Gabriel, Sep 04, 2022,05:09 HARJINDER OLEARY Sep 03, 2022 10:46 LIYAH GABRIEL DO Sep 04, 2022 05:10
--- NOTE | 2022-09-03 10:52 | Tele-ICU Progress Note ---
Subjective Date Seen by a Provider: Sep 03, 2022 Time Seen by a Provider: 14:23 Subjective/Events-last exam (Tele-ICU Physician , Progress note) Available chart/ vitals / labs / Images reviewed H&P is from ER notes Patient's information available about PMH, allergy reviewed in EMR. ROS as per chart and RN report Video assessment done using teleICU camera, rest of exam as per RN Discussed with RN. He is a 77-year-old male with past medical history of idiopathic pulmonary fibrosis, COPD, atrial fibrillation status post permanent pacemaker recently hospitalized and discharged. Now he is readmitted via the emergency room as he has pulmonary status to deteriorate. With generalized weakness as well. Ap parently had a recent urinary tract infection with Pseudomonas which was treated with antibiotics. He has a history of hypertension and a CVA also. Today he is in the intensive care unit on a Vapotherm at 25 L and 50% FiO2. I have reviewed his chest x-rays which showed markedly low lung volumes with underlying pulmonary fibrosis. Impression 1. Acute and chronic hypoxic respiratory failure requiring Vapotherm due to possible exacerbation of her underlying interstitial lung disease as well as COPD 2. At this time there is no evidence of prednisone pneumonia. 3. Atrial fibrillation chronic currently being managed with the diltiazem and metoprolol. Cardiology on the case 4. 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 Currently he is on clopidogrel and baby aspirin. 5. Idiopathic pulmonary fibrosis possibly with pulmonary hypertension was placed on sildenafil 20 mg by his lean coach 5. Urinary incontinence 6. Type 2 diabetes mellitus 7. History of sleep apnea but he does not tolerate CPAP wears oxygen via nasal cannula at nighttime Recommendations 1. Continue Vapotherm and wean FiO2 as tolerated 2. Anticoagulants per cardiology 3. Solu-Medrol IV every 6 hours 4. Bronchodilators. 5. His overall prognosis is poor. Coordination of care with bedside specialist and primary care physician. Sepsis Event Evaluation Height, Weight, BMI Height: '" Weight: lbs. oz. kg; 31.98 BMI Method: Exam Exam Patient acknowledged, consented, and participated in this virtual visit which was conducted using real time audio/video Vital Signs Date Time Temp Pulse Resp B/P (MAP) Pulse Ox O2 Delivery O2 Flow Rate FiO2 09/03/22 10:25 96 Vapotherm 25.00 50 09/03/22 10:00 122 127/63 (84) 97 Vapotherm 25.00 60.00 09/03/22 09:00 128 132/90 (104) 98 Vapotherm 25.00 60.00 09/03/22 08:00 37.3 09/03/22 08:00 129 118/74 (89) 96 Vapotherm 25.00 60.00 09/03/22 07:30 Vapotherm 25.00 60.00 09/03/22 07:02 123 09/03/22 07:00 122 120/72 (88) 92 Vapotherm 25.00 40.00 09/03/22 06:55 90 Vapotherm 25.00 40 09/03/22 06:00 121 96/65 (75) 92 Vapotherm 25.00 40.00 09/03/22 05:00 124 112/63 (79) 92 Vapotherm 25.00 40.00 09/03/22 04:00 37.3 09/03/22 04:00 123 119/86 (97) 94 Vapotherm 25.00 40.00 09/03/22 03:40 92 Vapotherm 40 09/03/22 03:00 122 29 97/63 (69) 92 Vapotherm 25.00 40.00 09/03/22 02:45 91 Vapotherm 25.00 40 09/03/22 02:00 122 116/57 (82) Vapotherm 25.00 35.00 09/03/22 01:00 118 31 102/55 (70) 93 Vapotherm 25.00 35.00 09/03/22 01:00 118 09/03/22 00:00 91 Vapotherm 35 09/03/22 00:00 118 31 119/61 (81) 94 Vapotherm 25.00 35.00 09/02/22 23:00 121 22 108/59 (77) 92 Vapotherm 25.00 35.00 09/02/22 22:18 92 Vapotherm 25.00 35 09/02/22 22:00 122 17 116/64 (87) 89 Vapotherm 25.00 30.00 09/02/22 21:00 126 25 100/61 (78) 91 Vapotherm 25.00 30.00 09/02/22 20:00 36.7 09/02/22 20:00 92 Vapotherm 35 09/02/22 20:00 130 31 115/64 (87) 90 Vapotherm 25.00 30.00 09/02/22 19:12 92 Vapotherm 25.00 30 09/02/22 19:00 116 24 101/63 (75) 91 Vapotherm 25.00 30.00 09/02/22 19:00 116 09/02/22 18:40 Vapotherm 25.00 35.00 09/02/22 18:00 114 19 96/47 (63) 99 Vapotherm 25.00 50.00 09/02/22 17:36 94 Vapotherm 25.00 50.00 09/02/22 17:00 116 48 95/71 (79) 95 Vapotherm 25.00 35.00 09/02/22 16:06 Vapotherm 35 09/02/22 16:00 121 28 109/66 (80) 93 Vapotherm 25.00 35.00 09/02/22 16:00 36.6 09/02/22 15:00 118 28 104/61 (75) 96 Vapotherm 25.00 35.00 09/02/22 14:41 Vapotherm 25.00 35.00 09/02/22 14:36 94 Vapotherm 25.00 35 09/02/22 14:00 111 28 119/58 (78) 92 Vapotherm 35.00 30.00 09/02/22 13:00 108 34 105/61 (76) 95 Vapotherm 35.00 30.00 09/02/22 12:57 112 09/02/22 12:10 Vapotherm 35 09/02/22 12:00 36.7 09/02/22 12:00 116 25 119/91 (100) 95 Vapotherm 35.00 30.00 09/02/22 11:31 97 Vapotherm 35.00 30.00 09/02/22 11:00 114 39 101/58 (72) 98 Vapotherm 35.00 40.00 09/02/22 10:55 98 Vapotherm 35.00 40.00 I & O 09/03/22 07:00 Intake Total 1700 ml Balance 1700 ml Height & Weight Height: '" Weight: lbs. oz. kg; 31.98 BMI Method: General Appearance: No Apparent Distress HEENT: PERRL/EOMI; No Scleral Icterus (L), No Scleral Icterus (R) Neck: Full Range of Motion, Supple; No Lymphadenopathy (L), No Lymphadenopathy (R) Respiratory: Chest Non Tender, Lungs Clear; No Crackles; Other (on BIPAP) Cardiovascular: Irregularly Irregular, Tachycardia Extremity: Non Tender, No Calf Tenderness, No Pedal Edema Neurologic/Psychiatric: Alert, Oriented x3 Skin: Warm/Dry Lymphatic: No Adenopathy Other comments PE PER RN Results Lab Laboratory Tests 09/02/22 04:17 09/03/22 03:57 Assessment/Plan Assessment/Plan ABOVE Critical Care: Critically Ill Patient Time spent with patient (mins): 24 LIZ ROMERO MD Sep 03, 2022 10:52
--- NOTE | 2022-09-03 12:31 | Progress Note - Cardiology ---
Cardiology SOAP Progress Note Subjective: No cp or palp or syncope No n/v/d No focal weakness Gen weakness Mod shortness of breath with mild exertion No swelling Objective: I&O/Vital Signs 09/03/22 09/03/22 09/03/22 09/03/22 01:00 01:00 02:00 02:45 Pulse 118 118 122 Resp 31 B/P (MAP) 102/55 (70) 116/57 (82) Pulse Ox 93 91 O2 Delivery Vapotherm Vapotherm Vapotherm O2 Flow Rate 25.00 25.00 25.00 35.00 35.00 FiO2 40 09/03/22 09/03/22 09/03/22 09/03/22 03:00 03:40 04:00 04:00 Temp 37.3 Pulse 122 123 Resp 29 B/P (MAP) 97/63 (69) 119/86 (97) Pulse Ox 92 92 94 O2 Delivery Vapotherm Vapotherm Vapotherm O2 Flow Rate 25.00 25.00 40.00 40.00 FiO2 40 09/03/22 09/03/22 09/03/22 09/03/22 05:00 06:00 06:55 07:00 Pulse 124 121 122 B/P (MAP) 112/63 (79) 96/65 (75) 120/72 (88) Pulse Ox 92 92 90 92 O2 Delivery Vapotherm Vapotherm Vapotherm Vapotherm O2 Flow Rate 25.00 25.00 25.00 25.00 40.00 40.00 40.00 FiO2 40 09/03/22 09/03/22 09/03/22 09/03/22 07:02 07:30 08:00 08:00 Temp 37.3 Pulse 123 129 B/P (MAP) 118/74 (89) Pulse Ox 96 O2 Delivery Vapotherm Vapotherm O2 Flow Rate 25.00 25.00 60.00 60.00 09/03/22 09/03/22 09/03/22 09/03/22 09:00 10:00 10:25 11:00 Pulse 128 122 130 B/P (MAP) 132/90 (104) 127/63 (84) 120/59 (79) Pulse Ox 98 97 96 94 O2 Delivery Vapotherm Vapotherm Vapotherm Vapotherm O2 Flow Rate 25.00 25.00 25.00 25.00 60.00 60.00 60.00 FiO2 50 09/03/22 12:00 Temp 37.0 09/03/22 00:00 Intake Total 1250 ml Balance 1250 ml Constitutional: AAO x 3, well-developed, well-nourished Respiratory: No accessory muscle use, No respiratory distress; chest expansion is symmetric, chest is bilaterally symmetric, other (diminished throughout; dyspneic with simple conversation) Cardiovascular: regular rate-rhythm, tachycardia, systolic murmur (soft ELDER at card base) Gastrointestional: No tender; soft, audible bowel sounds Extremities: No significant edema Neurologic/Psychiatric: oriented x 3, other (moves all limbs equally) Skin: normal color, warm/dry Results/Procedures: Labs Laboratory Tests 09/02/22 12:43: Procalcitonin 0.04 09/03/22 03:57: White Blood Count 14.7H, Red Blood Count 4.17L, Hemoglobin 13.3, Hematocrit 40, Mean Corpuscular Volume 95, Mean Corpuscular Hemoglobin 32, Mean Corpuscular Hemoglobin Concent 34, Red Cell Distribution Width 15.9H, Platelet Count 156, Mean Platelet Volume 10.3, Immature Granulocyte % (Auto) 2, Neutrophils (%) (Auto) 87H, Lymphocytes (%) (Auto) 4L, Monocytes (%) (Auto) 7, Eosinophils (%) (Auto) 0, Basophils (%) (Auto) 0, Neutrophils # (Auto) 12.8H, Lymphocytes # (Auto) 0.6L, Monocytes # (Auto) 1.0, Eosinophils # (Auto) 0.0, Basophils # (Auto) 0.0, Immature Granulocyte # (Auto) 0.3H, Neutrophils % (Manual) 86, Lymphocytes % (Manual) 4, Monocytes % (Manual) 7, Band Neutrophils 3, Anisocytosis SLIGHT, Sodium Level 135, Potassium Level 4.0, Chloride Level 98, Carbon Dioxide Level 19L, Anion Gap 18H, Blood Urea Nitrogen 30H, Creatinine 1.21, Estimat Glomerular Filtration Rate 62, BUN/Creatinine Ratio 25, Glucose Level 298H, Calcium Level 9.1, Corrected Calcium 9.7, Phosphorus Level 3.3, Magn esium Level 2.2, Total Bilirubin 0.7, Aspartate Amino Transf (AST/SGOT) 24, Alanine Aminotransferase (ALT/SGPT) 57H, Alkaline Phosphatase 67, Total Protein 6.6, Albumin 3.3 09/03/22 04:50: Blood Gas Puncture Site R RAD, Blood Gas Patient Temperature 37.3, Arterial Blood pH 7.41, Arterial Blood Partial Pressure CO2 36, Arterial Blood Partial Pressure O2 67L, Arterial Blood HCO3 23, Arterial Blood Total CO2 23.7, Arterial Blood Oxygen Saturation 93L, Arterial Blood Base Excess -1.3, Andrea Test YES- POS, Blood Gas Ventilator Setting NO, Blood Gas Inspired Oxygen 40% A/P: Assessment: ?Pneumonia - management per eICU and medical services Acute on chronic resp failure - Recent hospitalization at [facility] in [place], [place] d/t resp failure d/t pneumonia and Influenza A on 07-21-22 - transferred to [facility] in [place], [place] on 07-31-22 - admitted to [facility] in mid Aug 2022 - Pulmonary HTN of undetermined etiology - on sildenafil and chronic oxygen at home (prior to admission) - followed by Dr. Kaur of pulmonary services in [place], [place] - deteriorating resp status requiring transfer to ICU on 09-02-22 - requiring Vapo-therm SSS. PAF with controlled vent response seen on tele of 08/23/22 (CHADSVASc score 6) - s/p pacemaker in 2019, followed by Dr Carpenter at [facility] - had been on apixaban for stroke prophylaxis since 08/23/22 - stopped (by medical services) d/t episode of hematuria - resumed on 08-28-22 - Echocardiogram of 09-02-22 showed LVEF 65-70%. Trivial AoR H/o HTN H/o HLD CARLA DM 2 H/o previous CVA - Alexa2016 - treated at [facility] - per pt source undetermined - no residual COPD H/o tobaccoism - quit 30 yrs ago Plan: * Pulm htn and ac on ch resp failure management is with the Med and ICU svce * He is currently in sinus tach that is likely due to gen weakness and ac resp failure * Continue BB and dilt because of a h/o PAF * Resp failure does not appear to be primarily of cardiac origin (normal LVEF, normal BNP). Consider transfer to tertiary care facility with pulmonology services EDUARDO LANE MD FACP FAC CCDS Sep 03, 2022 12:31
[2022-09-03] MEDS: eZETimibe 10 MG (ZETIA) TABLET PO SCH (20:54)
[2022-09-03] MEDS: inSUlin ASPART (NovoLOG) 1 UNIT/0.01 ML (CHARGE PER UNIT) SC SCH (21:15)
[2022-09-04] MEDS: RT-ALBUTEROL SULF 2.5 MG/3 ML PRE-MIX VIAL INH SCH ×5 (02:34→19:07)
[2022-09-04] MEDS: RT-IPRATROPIUM (ATROVENT) 0.5MG/2.5ML AMP IH SCH ×5 (02:34→19:07)
[2022-09-04 04:37] LABS: BASOPHILS % (AUTO) 0 % (0-10); EOSINOPHILS # (AUTO) 0.1 10^3/uL (0.0-0.3); EOSINOPHILS % (AUTO) 1 % (0-10); HEMATOCRIT 39 % (40-54); LYMPHOCYTES # (AUTO) 0.5 10^3/uL (1.0-4.0); LYMPHOCYTES % (AUTO) 4 % (12-44); MEAN CORPUSCULAR HEMOGLOBIN 32 pg (25-34); MEAN CORPUSCULAR HGB CONC 33 g/dL (32-36); MEAN CORPUSCULAR VOLUME 95 fL (80-99); MEAN PLATELET VOLUME 9.9 fL (9.0-12.2); MONOCYTES # (AUTO) 0.7 10^3/uL (0.0-1.0); MONOCYTES % (AUTO) 5 % (0-12); NEUTROPHILS # (AUTO) 11.5 10^3/uL (1.8-7.8); NEUTROPHILS % (AUTO) 88 % (42-75); PLATELET COUNT 149 10^3/uL (130-400)
[2022-09-04 05:03] LABS: ALBUMIN 3.2 GM/DL (3.2-4.5); POTASSIUM 4.4 MMOL/L (3.6-5.0)
[2022-09-04 05:04] LABS: CALCIUM 9.1 MG/DL (8.5-10.1)
[2022-09-04 05:06] LABS: TOTAL PROTEIN 6.3 GM/DL (6.4-8.2)
[2022-09-04 05:07] LABS: BILIRUBIN,TOTAL 0.9 MG/DL (0.1-1.0)
[2022-09-04 05:09] LABS: CREATININE SERUM 1.06 MG/DL (0.60-1.30); PHOSPHORUS 3.4 MG/DL (2.3-4.7)
[2022-09-04 05:12] LABS: MAGNESIUM 2.3 MG/DL (1.6-2.4)
[2022-09-04 05:43] LABS: ABG BASE EXCESS 4.2 MMOL/L (-2.5-2.5); ABG OXYGEN SATURATION 94 % (94-100); ABG PCO2 45 MMHG (35-45); ABG PH 7.42 (7.37-7.43); ABG PO2 82 MMHG (79-93)
[2022-09-04 05:44] LABS: ALLENS TEST YES-POS; INSPIRED O2 50%; PATIENT TEMP 36.8; VENTILATOR NO
[2022-09-04] MEDS: MULTIVIT W/MINERALS TAB (THERAGRAN M) PO SCH (05:55)
[2022-09-04] MEDS: PANTOPRAZOLE 40 MG (PROTONIX) TAB PO SCH (05:55)
[2022-09-04] MEDS: methylPREDNISolone 125 MG (Solu-MEDROL) VIAL IVP SCH ×5 (05:55→23:42)
[2022-09-04] MEDS: inSUlin ASPART (NovoLOG) 1 UNIT/0.01 ML (CHARGE PER UNIT) SC SCH ×4 (05:56→20:33)
[2022-09-04] MEDS: POTASSIUM CL 10MEQ/50ML IVPB 50 ML IV SCH (06:32)
[2022-09-04] MEDS: MAGNESIUM 1 GM/100 ML IVPB 100 ML IV SCH (06:33)
[2022-09-04] MEDS: KCL 20 MEQ TAB (K-DUR) PO SCH (06:33)
[2022-09-04] MEDS: UMECLIDINIUM BROMIDE (INCRUSE ELLIPTA) 7'S IH SCH (06:54)
--- NOTE | 2022-09-04 08:09 | Progress Note - Cardiology ---
Cardiology SOAP Progress Note Subjective: Remains dyspneic at rest and tachycardic Denies BP, but does reports SOB No CP Objective: I&O/Vital Signs 09/04/22 09/04/22 09/04/22 09/04/22 04:00 04:00 04:11 05:00 Pulse 108 105 Resp 17 16 B/P (MAP) 101/68 (79) 97/63 (74) Pulse Ox 92 94 92 O2 Delivery Vapotherm Vapotherm Vapotherm Vapotherm O2 Flow Rate 30.00 30.00 30.00 30.00 50.00 60.00 60.00 FiO2 60 09/04/22 09/04/22 09/04/22 09/04/22 05:00 06:00 06:38 06:54 Temp 36.8 Pulse 102 Resp 16 B/P (MAP) 110/85 (93) Pulse Ox 96 97 O2 Delivery Vapotherm Vapotherm Vapotherm O2 Flow Rate 30.00 40.00 40.00 60.00 100.00 FiO2 100 09/04/22 09/04/22 09/04/22 09/04/22 06:56 07:00 07:17 07:58 Temp 37.0 Pulse 111 124 Resp 29 B/P (MAP) 130/82 (98) Pulse Ox 93 O2 Delivery Vapotherm Vapotherm O2 Flow Rate 35.00 35.00 80.00 80.00 09/04/22 09/04/22 09/04/22 09/04/22 08:00 09:00 10:00 10:58 Pulse 118 114 105 Resp 24 29 23 B/P (MAP) 119/77 (91) 111/69 (83) 100/92 (95) Pulse Ox 94 96 96 94 O2 Delivery Vapotherm Vapotherm Vapotherm Vapotherm O2 Flow Rate 35.00 35.00 35.00 35.00 80.00 80.00 80.00 FiO2 80 09/04/22 09/04/22 09/04/22 09/04/22 11:00 12:00 12:00 12:57 Temp 36.9 Pulse 106 120 114 Resp 31 31 B/P (MAP) 109/75 (86) 109/75 (86) Pulse Ox 93 93 O2 Delivery Vapotherm Vapotherm O2 Flow Rate 35.00 35.00 80.00 80.00 09/04/22 09/04/22 09/04/22 13:00 13:30 14:00 Pulse 112 105 Resp 38 35 B/P (MAP) 118/70 (86) 112/85 (94) Pulse Ox 95 94 O2 Delivery Vapotherm Vapotherm Vapotherm O2 Flow Rate 35.00 25.00 25.00 80.00 55.00 55.00 09/04/22 00:00 Intake Total 1000 ml Balance 1000 ml Constitutional: AAO x 3, well-developed, well-nourished Respiratory: No accessory muscle use, No respiratory distress; chest expansion is symmetric, chest is bilaterally symmetric, other (diminished throughout; dyspneic with simple conversation) Cardiovascular: regular rate-rhythm, tachycardia, systolic murmur (soft ELDER at card base) Gastrointestional: No tender; soft, audible bowel sounds Extremities: No significant edema Neurologic/Psychiatric: oriented x 3, other (moves all limbs equally) Skin: normal color, warm/dry Results/Procedures: Labs Laboratory Tests 09/03/22 20:43: Glucometer 288H 09/04/22 04:30: White Blood Count 13.0H, Red Blood Count 4.11L, Hemoglobin 13.0L, Hematocrit 39L , Mean Corpuscular Volume 95, Mean Corpuscular Hemoglobin 32, Mean Corpuscular Hemoglobin Concent 33, Red Cell Distribution Width 16.2H, Platelet Count 149, Mean Platelet Volume 9.9, Immature Granulocyte % (Auto) 2, Neutrophils (%) (Auto) 88H, Lymphocytes (%) (Auto) 4L, Monocytes (%) (Auto) 5, Eosinophils (%) (Auto) 1, Basophils (%) (Auto) 0, Neutrophils # (Auto) 11.5H, Lymphocytes # (Auto) 0.5L, Monocytes # (Auto) 0.7, Eosinophils # (Auto) 0.1, Basophils # (Auto) 0.0, Immature Granulocyte # (Auto) 0.3H, Sodium Level 137, Potassium Level 4.4, Chloride Level 100, Carbon Dioxide Level 23, Anion Gap 14, Blood Urea Nitrogen 28H, Creatinine 1.06, Estimat Glomerular Filtration Rate 73, BUN/Creatinine Ratio 26, Glucose Level 264H, Calcium Level 9.1, Corrected Calcium 9.7, Phosphorus Level 3.4, Magnesium Level 2.3, Total Bilirubin 0.9, Aspartate Amino Transf (AST/SGOT) 42H, Alanine Aminotransferase (ALT/SGPT) 81H, Alkaline Phosphatase 63, Total Protein 6.3L, Albumin 3.2 09/04/22 05:27: Blood Gas Puncture Site LRAD, Blood Gas Patient Temperature 36.8, Arterial Blood pH 7.42, Arterial Blood Partial Pressure CO2 45, Arterial Blood Partial Pressure O2 82, Arterial Blood HCO3 29H, Arterial Blood Total CO2 30.0, Arterial Blood Oxygen Saturation 94, Arterial Blood Base Excess 4.2H, Andrea Test YES-POS, Blood Gas Ventilator Setting NO, Blood Gas Inspired Oxygen 50% 09/04/22 10:28: Glucometer 298H A/P: Assessment: ?Pneumonia - management per eICU and medical services Acute on chronic resp failure - Recent hospitalization at [facility] in [place], [place] d/t resp failure d/t pneumonia and Influenza A on 07-21-22 - transferred to [facility] in [place], [place] on 07-31-22 - admitted to [facility] in mid Aug 2022 - Pulmonary HTN of undetermined etiology - on sildenafil and chronic oxygen at home (prior to admission) - followed by Dr. Kaur of pulmonary services in [place], [place] - deteriorating resp status requiring transfer to ICU on 09-02-22 - requiring Vapo-therm (Vapo-therm increased this morning 09-04-22) SSS. PAF with controlled vent response seen on tele of 08/23/22 (CHADSVASc score 6) - s/p pacemaker in 2019, followed by Dr Carpenter at [facility] - had been on apixaban for stroke prophylaxis since 08/23/22 - stopped (by medical services) d/t episode of hematuria - resumed on 08-28-22 - Echocardiogram of 09-02-22 showed LVEF 65-70%. Trivial AoR H/o HTN H/o HLD CARLA DM 2 H/o previous CVA - Alexa 2016 - treated at [place] - per pt source undetermined - no residual COPD H/o tobaccoism - quit 30 yrs ago Plan: * Pulm htn and ac on ch resp failure management is with the Med and ICU svce * He is currently in sinus tach that is likely due to gen weakness and ac resp failure * Continue BB and dilt because of a h/o PAF * Resp failure does not appear to be primarily of cardiac origin (normal LVEF, normal BNP). Advise transfer to tertiary care facility with pulmonology services EMETERIO HUYNH Sep 04, 2022 08:09
[2022-09-04] MEDS: SENNA W/DOCUSATE (SENOKOT S) TABLET PO SCH ×2 (09:12→21:31)
[2022-09-04] MEDS: ASPIRIN 81 MG CHEW (CHILDREN'S ASA) PO SCH (09:12)
[2022-09-04] MEDS: meTOprolol TARTRATE 25 MG (LOPRESSOR) TABLET PO SCH ×3 (09:12→20:34)
[2022-09-04] MEDS: SENNOSIDES 8.6 MG (SENOKOT) TAB PO SCH ×2 (09:12→21:32)
[2022-09-04] MEDS: SILDENAFIL 20 MG (REVATIO) TAB PO SCH (09:12)
[2022-09-04] MEDS: APIXABAN 5 MG (ELIQUIS) TABLET PO SCH ×2 (09:12→20:34)
[2022-09-04] MEDS: polyethylene glycoL POWDER 17 GM (MIRALAX) PACK PO SCH ×2 (09:14→21:31)
[2022-09-04] MEDS: NEO/POLY/BAC (NEOSPORIN) OINT 15 GM TUBE TOP SCH ×2 (09:14→21:32)
[2022-09-04] MEDS: dilTIAZem DRIP PRE-MIX 125 ML IV SCH (09:50)
--- NOTE | 2022-09-04 11:25 | Physical Therapy Evaluation ---
PT Evaluation-General Medical Diagnosis Admission Date Sep 01, 2022 at 21:36 Medical Diagnosis: respiratory failure Onset Date: Sep 01, 2022 Therapy Diagnosis Therapy Diagnosis: generalized weakness/debility Precautions Precautions/Isolations: Fall Prevention, Standard Precautions Referral Physician: Yocasta Reason for Referral: Evaluation/Treatment Medical History Pertinent Medical History: Atrial Fib (pacemaker), COPD, CVA, HTN, Neuropathy Additional Medical History pulmonary fibrosis Current History Transfer from ARU to cardiac step down to ICU due to increase O2 demand. Currently on Vapotherm 80%/35L Reviewed History: Yes Prior Prior Level of Function SCALE: Activities may be completed with or without assistive devices. 0-Bubworatxr-zkdnxxt completes the activity by him/herself with no assistance from a helper. 5-Set-up or Clean-up Assistance-helper sets up or cleans up; patient completes activity. [place] assists only prior to or following the activity. 4-Supervision or Touching Assistance-helper provides verbal cues and/or to uching/steadying and/or contact guard assistance as patient completes activity. Assistance may be provided throughout the activity or intermittently. 3-Partial/Moderate Assistance-helper does LESS THAN HALF the effort. [place] lifts, holds or supports trunk or limbs, but provides less than half the effort. 2-Substantial/Maximal Assistance-helper does MORE THAN HALF the effort. [place] lifts or holds trunk or limbs and provides more than half the effort. 9-Iagphytvd-pcxsoe does ALL the effort. Patient does none of the effort to complete the activity. Or, the assistance of 2 or more helpers is required for the patient to complete the activity. If activity was not attempted, code reason: 7-Patient Refused. 9-Not Applicable-not attempted and the patient did not perform the activity before the current illness, exacerbation or injury. 10-Not Attempted due to Environmental Limitations-(lack of equipment, weather restraints, etc.). 88-Not Attempted due to Medical Conditions or Safety Concerns. Bed Mobility: 4 Transfers (B,C,W/C): 4 Gait: 4 Indoor Mobility (Ambulation): Needed Some Help Prior Devices Use: Walker PT Evaluation-Current Subjective Patient agrees to therapy. Objective Patient Orientation: Normal For Age Attachments: Oxygen (vapotherm 80%/35L) ROM/Strength ROM Lower Extremities bilateral LE WFL Strength Lower Extremities 3/5 grossly bilateral LE all planes Integumentary/Posture Bowel Incontinence: No Bladder Incontinence: No Posture WFL Neuromuscular (Tone, Coordination, Reflexes) grossly intact Sensory Vision: Functional Hearing: Functional Sensation Right Lower Extremit: Impaired Sensation Left Lower Extremity: Impaired Transfers Lying to Sitting/Side of Bed(Q: 4 Sit to Stand (QC): 3 Chair/Qnh-ns-Eeikm Xfer(QC): 3 Gait Mode of Locomotion: Walk Distance: 5 steps Gait Assistive Device: FWW Comments/Gait Description slightly unsteady Balance Sitting Static: Normal Sitting Dynamic: Normal Standing Static: Fair Standing Dynamic: Fair Assessment/Needs SAO2 decreased to 76% supine to EOB with several minute recovery to 87%. Transferred to recliner with decrease SAO2 to 81% with several minute recovery. Patient will benefit from skilled PT to address functional strength and mobility to improve current LOF. Rehab Potential: Guarded PT Hog Room Supervisor Goals Chcf Goals PT Chcf Goals Time Frame: Sep 20, 2022 Roll Left & Right (QC): 6 Sit to Lying (QC): 6 Lying-Sitting on Side/Bed(QC): 6 Sit to Stand (QC): 6 Chair/Fes-qf-Nxyni Xfer(QC): 6 Toilet Transfer (QC): 6 Walk 10 feet (QC): 4 Walk 50ft with 2 Turns (QC): 4 PT Plan Problem List Problem List: Activity Tolerance, Functional Strength, Safety, Balance, Gait, Transfer, Bed Mobility Treatment/Plan Treatment Plan: Continue Plan of Care Treatment Plan: Bed Mobility, Education, Functional Activity Cece, Functional Strength, Gait, Safety, Therapeutic Exercise, Transfers Treatment Duration: Sep 20, 2022 Frequency: 6 times per week Estimated Hrs Per Day: .25 hour per day Patient and/or Family Agrees t: Yes Time Time In: 1055 Time Out: 1109 DATE: Sep 04, 2022 Total Billed Treatment Time: 14 Total Billed Treatment 1 visit EVMod 14 min ISAIAH RUIZ PT Sep 04, 2022 11:25
--- NOTE | 2022-09-04 11:41 | Occupational Therapy Eval ---
OT Evaluation-General/PLF Medical Diagnosis Admission Date Sep 01, 2022 at 21:36 Medical Diagnosis: respiratory failure Onset Date: Sep 01, 2022 Therapy Diagnosis Therapy Diagnosis: weakness/debility Precautions Precautions/Isolations: Fall Prevention, Standard Precautions Weight Bear Status Weight Bearing Restriction: Weight Bearing/Tolerated Referral Physician: Yocasta Referral Reason: Activity Tolerance, Self Care, Evaluation/Treatment, Strengthening/ROM Medical History Pertinent Medical History: Atrial Fib (pacemaker), COPD, CVA, HTN, Neuropathy Additional Medical History Pulmonary Fibrosis Current History Transfer from ARU to cardiac step down to ICU due to increase O2 demand. Currently on Vapotherm 80%/35L Reviewed History: Yes Social History Home: patient reports came from [place] in July ADL-Prior Level of Function SCALE: Activities may be completed with or without assistive devices. 4-Ethflauzdr-xfdrobl completes the activity by him/herself with no assistance from a helper. 5-Set-up or Clean-up Assistance-helper sets up or cleans up; patient completes activity. [place] assists only prior to or following the activity. 4-Supervision or Touching Assistance-helper provides verbal cues and/or touching/steadying and/or contact guard assistance as patient completes activity. Assistance may be provided throughout the activity or intermittently. 3-Partial/Moderate Assistance-helper does LESS THAN HALF the effort. [place] lifts, holds or supports trunk or limbs, but provides less than half the effort. 2-Substantial/Maximal Assistance-helper does MORE THAN HALF the effort. [place] lifts or holds trunk or limbs and provides more than half the effort. 5-Xyrbaumlf-yoaswk does ALL the effort. Patient does none of the effort to complete the activity. Or, the assistance of 2 or more helpers is required for the patient to complete the activity. If activity was not attempted, code reason: 7-Patient Refused. 9-Not Applicable-not attempted and the patient did not perform the activity before the current illness, exacerbation or injury. 10-Not Attempted due to Environmental Limitations-(lack of equipment, weather restraints, etc.). 88-Not Attempted due to Medical Conditions or Safety Concerns. Self Care: Needed Some Help Functional Cognition: Needed Some Help Drive Self: No OT Current Status Subjective Up in reclined position in bed watching tv Pain Numeric Pain Scale: 0-No Pain Mental Status/Objective Patient Orientation: Person, Place, Time, Situation, Normal For Age Attachments: IV, Oxygen (Currently on Vapotherm 80%/35L), Telemetry Current Glasses/Contacts: Yes Upper Extremity ROM BUE WFLS Upper Extremity Coordination BUE GMC WFLS, mild deficits for FMC Upper Extremity Sensation decreased dexterity Upper Extremity Strength +3/5 BUE grossly ADL-Treatment Eating (QC): 6 Oral Hygiene (QC): 4 Shower/Bathe Self (QC): 88 Upper Body Dressing (QC): 3 Lower Body Dressing (QC): 2 On/Off Footwear (QC): 2 Toileting Hygiene (QC): 2 Other Treatments Energy conservation education, PLB sitting EOB for functional reach, education for body position to reduce stress of breathing Education OT Patient Education: Correct positioning, Energy conservation, Exercise program, Modified ADL techniques, Progress toward Goal/Update tx plan, Purpose of tx/functional activities, Reviewed precautions, Rehab process, Safety issues, Transfer techniques, Use of adapted equipment (patient reports he does not want top return to [facility]) Teaching Recipient: Patient Teaching Methods: Demonstration, Discussion Response to Teaching: Verbalize Understanding, Reinforcement Needed OT Netting Inspector Goals Netting Inspector Goals Eating (QC): 6 Oral Hygiene (QC): 6 Toileting Hygiene (QC): 6 Shower/Bathe Self (QC): 6 Upper Body Dressing (QC): 6 Lower Body Dressing (QC): 6 On/Off Footwear (QC): 6 1=Demonstrate adherence to instructed precautions during ADL tasks. 2=Patient will verbalize/demonstrate understanding of assistive devices/modifications for ADL. 3=Patient will improve strength/tolerance for activity to enable patient to perform ADL's. OT Education/Plan Problem List/Assessment Assessment: Decreased Activ Tolerance, Decreased Safety Aware, Decreased UE Strength, Impaired Bed Mobility, Impaired Coordination, Impaired Funct Balance, Impaired Self-Care Skills Discharge Recommendations Plan/Recommendations: Continue POC Therapy Discharge Recommendati: Post Acute OT Treatment Plan/Plan of Care Treatment,Training & Education: Yes Patient would benefit from OT for education, treatment and training to promote independence in ADL's, mobility, safety and/or upper extremity function for ADL's. Plan of Care: ADL Retraining, Cognitive Retraining, Concurrent Therapy, Functional Mobility, Group Exercise/Act as Ind Treatment Duration: Sep 13, 2022 Frequency: 3 times per week (3-5 times per week) Estimated Hrs Per Day: .25 hour per day Agreement: Yes Rehab Potential: Guarded Patient remains up in recliner chair all needs met Time Start Time: 10:55 Stop Time: 09:17 DATE: Sep 04, 2022 Total Time Billed (hr/min): 23 Billed Treatment Time 1 visit EVM 1 EX 1 23 min IRWIN SPEAR OT Sep 04, 2022 11:41
--- NOTE | 2022-09-04 11:59 | Progress Note - Cardiology ---
Cardiology SOAP Progress Note Subjective: Shortness of breath with activity No cp or palp or syncope Extremity swelling as before Gen weakness No focal weakness No n/v/d Objective: I&O/Vital Signs 09/04/22 09/04/22 09/04/22 09/04/22 00:00 00:00 00:00 01:00 Temp 36.9 Pulse 109 109 Resp 22 B/P (MAP) 109/74 (86) Pulse Ox 92 98 O2 Delivery NIV Bilevel NIV Bilevel O2 Flow Rate 50.00 FiO2 50 09/04/22 09/04/22 09/04/22 09/04/22 01:00 02:00 02:18 02:34 Pulse 105 112 106 Resp 16 22 27 B/P (MAP) 106/76 (86) 155/89 (111) Pulse Ox 97 98 89 O2 Delivery NIV Bilevel NIV Bilevel Vapotherm O2 Flow Rate 50.00 50.00 30.00 50.00 50.00 09/04/22 09/04/22 09/04/22 09/04/22 02:35 03:00 04:00 04:00 Pulse 108 108 Resp 18 17 B/P (MAP) 103/65 (78) 101/68 (79) Pulse Ox 88 95 92 94 O2 Delivery Vapotherm Vapotherm Vapotherm Vapotherm O2 Flow Rate 25.00 30.00 30.00 30.00 50.00 50.00 FiO2 45 60 09/04/22 09/04/22 09/04/22 09/04/22 04:11 05:00 05:00 06:00 Temp 36.8 Pulse 105 102 Resp 16 16 B/P (MAP) 97/63 (74) 110/85 (93) Pulse Ox 92 96 O2 Delivery Vapotherm Vapotherm Vapotherm O2 Flow Rate 30.00 30.00 30.00 60.00 60.00 60.00 09/04/22 09/04/22 09/04/22 09/04/22 06:38 06:54 06:56 07:00 Pulse 111 Resp 29 B/P (MAP) 130/82 (98) Pulse Ox 97 93 O2 Delivery Vapotherm Vapotherm Vapotherm Vapotherm O2 Flow Rate 40.00 40.00 35.00 35.00 100.00 80.00 80.00 FiO2 100 2/209/04/22 09/04/22 09/04/22 07:17 07:58 08:00 09:00 Temp 37.0 Pulse 124 118 114 Resp 24 29 B/P (MAP) 119/77 (91) 111/69 (83) Pulse Ox 94 96 O2 Delivery Vapotherm Vapotherm O2 Flow Rate 35.00 35.00 80.00 80.00 09/04/22 09/04/22 10:00 10:58 Pulse 105 Resp 23 B/P (MAP) 100/92 (95) Pulse Ox 96 94 O2 Delivery Vapotherm Vapotherm O2 Flow Rate 35.00 35.00 80.00 FiO2 80 09/03/22 23:59 Intake Total 1000 ml Balance 1000 ml Constitutional: AAO x 3, well-developed, well-nourished Respiratory: No accessory muscle use, No respiratory distress; chest expansion is symmetric, chest is bilaterally symmetric, other (diminished throughout; dyspneic with simple conversation) Cardiovascular: regular rate-rhythm, tachycardia, systolic murmur (soft ELDER at card base) Gastrointestional: No tender; soft, audible bowel sounds Extremities: No significant edema Neurologic/Psychiatric: oriented x 3, other (moves all limbs equally) Skin: normal color, warm/dry Results/Procedures: Labs Laboratory Tests 09/03/22 20:43: Glucometer 288H 09/04/22 04:30: White Blood Count 13.0H, Red Blood Count 4.11L, Hemoglobin 13.0L, Hematocrit 39L , Mean Corpuscular Volume 95, Mean Corpuscular Hemoglobin 32, Mean Corpuscular Hemoglobin Concent 33, Red Cell Distribution Width 16.2H, Platelet Count 149, Mean Platelet Volume 9.9, Immature Granulocyte % (Auto) 2, Neutrophils (%) (Auto) 88H, Lymphocytes (%) (Auto) 4L, Monocytes (%) (Auto) 5, Eosinophils (%) (Auto) 1, Basophils (%) (Auto) 0, Neutrophils # (Auto) 11.5H, Lymphocytes # (Auto) 0.5L, Monocytes # (Auto) 0.7, Eosinophils # (Auto) 0.1, Basophils # (Auto) 0.0, Immature Granulocyte # (Auto) 0.3H, Sodium Level 137, Potassium Level 4.4, Chloride Level 100, Carbon Dioxide Level 23, Anion Gap 14, Blood Urea Nitrogen 28H, Creatinine 1.06, Estimat Glomerular Filtration Rate 73, BUN/Creatinine Ratio 26, Glucose Level 264H, Calcium Level 9.1, Corrected Calcium 9.7, Phosphorus Level 3.4, Magnesium Level 2.3, Total Bilirubin 0.9, Aspartate Amino Transf (AST/SGOT) 42H, Alanine Aminotransferase (ALT/SGPT) 81H, Alkaline Phosphatase 63, Total Protein 6.3L, Albumin 3.2 09/04/22 05:27: Blood Gas Puncture Site LRAD, Blood Gas Patient Temperature 36.8, Arterial Blood pH 7.42, Arterial Blood Partial Pressure CO2 45, Arterial Blood Partial Pressure O2 82, Arterial Blood HCO3 29H, Arterial Blood Total CO2 30.0, Arterial Blood Oxygen Saturation 94, Arterial Blood Base Excess 4.2H, Andrea Test YES-POS, Blood Gas Ventilator Setting NO, Blood Gas Inspired Oxygen 50% 09/04/22 10:28: Glucometer 298H A/P: Assessment: Pneumonia or interstitial lung disease - management per eICU and medical services Acute on chronic resp failure - Recent hospitalization at [facility] in [place], [place] d/t resp failure d/t pneumonia and Influenza A on 07-21-22 - transferred to [facility] in [place], [place] on 07-31-22 - admitted to [facility] in mid Aug 2022 - Pulmonary HTN of undetermined etiology - on sildenafil and chronic oxygen at home (prior to admission) - followed by Dr. Kaur of pulmonary services in [place], [place] - deteriorating resp status requiring transfer to ICU on 09-02-22 - requiring Vapo-therm (Vapo-therm increased this morning 09-04-22) SSS. PAF with controlled vent response seen on tele of 08/23/22 (CHADSVASc score 6) - s/p pacemaker in 2019, followed by Dr Carpenter at [facility] - had been on apixaban for stroke prophylaxis since 08/23/22 - stopped (by med ical services) d/t episode of hematuria - resumed on 08-28-22 - Echocardiogram of 09-02-22 showed LVEF 65-70%. Trivial AoR H/o HTN H/o HLD CARLA DM 2 H/o previous CVA - [id number] - treated at [facility] - per pt source undetermined - no residual COPD H/o tobaccoism - quit 30 yrs ago Plan: * Pulm htn and ac on ch resp failure management is with the Med and ICU svce * He is currently in sinus tach that is likely due to gen weakness and ac resp failure * Continue BB and dilt because of a h/o PAF * Resp failure does not appear to be primarily of cardiac origin (normal LVEF, normal BNP). Advise transfer to tertiary care facility with pulmonology services EDUARDO LANE MD FACP FACC CCDS Sep 04, 2022 11:59
[2022-09-04] MEDS ORDERED: BUMETANIDE 1 MG/4 ML (BUMEX) VIAL IV NR (12:00)
--- NOTE | 2022-09-04 12:10 | Progress Note ---
HARJINDER OLEARY 09/04/22 1210: Subjective Date Seen by a Provider: Sep 04, 2022 Time Seen by a Provider: 11:53 Subjective/Events-last exam Upon follow-up for AoC respiratory failure, Gulshan is sitting upright in bed, Vapotherm in place --FiO2 of 85%, and 35 L/min O2--with his breakfast at bedsid e. He states his appetite has slightly diminished, though he was able to eat the majority of his breakfast. He states that he did sleep better last night, and was compliant with CPAP. He reports that he is continuing to utilize his incentive spirometer, and demonstrated how he used it. Gulshan denies any nausea, vomiting, fever, chills, or chest pain. He states that his SOA is about the same as yesterday. Of note, his rate control has improved, though he is still tachycardic around 100-115 bpm. Repeat CXR was completed today, and will follow- up on the completed report. Presently, is working to find agreeable placement for Gulshan; he is adamant about not returning to [facility], but is open to trying out a new facility. Patient does not fully grasp the gravity of his medical needs, but is conversational and in positive spirits. Review of Systems General: No Chills, No Night Sweats HEENT: No Visual Changes, No Eye Pain Pulmonary: Dyspnea; No Cough Cardiovascular: No: Chest Pain, Orthopnea Gastrointestinal: No: Nausea, Vomiting, Abdominal Pain Genitourinary: No Dysuria, No Frequency Musculoskeletal: No: neck pain, shoulder pain Neurological: Weakness, Numbness Focused Exam Respiratory: Chest Non Tender, Lungs Clear, Decreased Breath Sounds (Slight improvement from yesterday) Cardiovascular: No Edema, No Gallop, No Murmur, Tachycardia Capillary Refill: Less Than 3 Seconds Peripheral Pulses: 2+ Radial Pulses (R), 2+ Radial Pulses (L) Skin: normal color, warm/dry Objective Exam Last Set of Vital Signs Vital Signs Date Time Temp Pulse Resp B/P (MAP) Pulse Ox O2 Delivery O2 Flow Rate FiO2 09/04/22 10:58 94 Vapotherm 35.00 80 09/04/22 10:00 105 23 100/92 (95) 09/04/22 07:58 37.0 Capillary Refill : Less Than 3 Seconds I&O Intake and Output 09/04/22 00:00 Intake Total 1975 ml Balance 1975 ml Intake Oral 1975 ml # Voids 1 # Urine Diapers 15 General: Alert, Oriented X3, Cooperative, No Acute Distress HEENT: Atraumatic, PERRLA, EOMI Neck: Supple, No JVD Lungs: Clear to Auscultation, Other (Decreased breath sounds, slightly improved from yesterday (09/03)) Heart: Other (Tachycardic, improved from yesterday (09/03)) Abdomen: Normal Bowel Sounds, Soft, No Tenderness Extremities: No Cyanosis, Normal Pulses Skin: No Rashes, No Breakdown Neuro: Normal Speech Psych/Mental Status: Mental Status NL, Mood NL Results Lab Laboratory Tests 09/03/22 20:43: Glucometer 288H 09/04/22 04:30: White Blood Count 13.0H, Red Blood Count 4.11L, Hemoglobin 13.0L, Hematocrit 39L , Mean Corpuscular Volume 95, Mean Corpuscular Hemoglobin 32, Mean Corpuscular Hemoglobin Concent 33, Red Cell Distribution Width 16.2H, Platelet Count 149, Mean Platelet Volume 9.9, Immature Granulocyte % (Auto) 2, Neutrophils (%) (Auto) 88H, Lymphocytes (%) (Auto) 4L, Monocytes (%) (Auto) 5, Eosinophils (%) (Auto) 1, Basophils (%) (Auto) 0, Neutrophils # (Auto) 11.5H, Lymphocytes # (Auto) 0.5L, Monocytes # (Auto) 0.7, Eosinophils # (Auto) 0.1, Basophils # (Auto) 0.0, Immature Granulocyte # (Auto) 0.3H, Sodium Level 137, Potassium Level 4.4, Chloride Level 100, Carbon Dioxide Level 23, Anion Gap 14, Blood Urea Nitrogen 28H, Creatinine 1.06, Estimat Glomerular Filtration Rate 73, BUN/Creatinine Ratio 26, Glucose Level 264H, Calcium Level 9.1, Corrected Calcium 9.7, Phosphorus Level 3.4, Magnesium Level 2.3, Total Bilirubin 0.9, Aspartate Amino Transf (AST/SGOT) 42H, Alanine Aminotransferase (ALT/SGPT) 81H, Alkaline Phosphatase 63, Total Protein 6.3L, Albumin 3.2 09/04/22 05:27: Blood Gas Puncture Site LRAD, Blood Gas Patient Temperature 36.8, Arterial Blood pH 7.42, Arterial Blood Partial Pressure CO2 45, Arterial Blood Partial Pressure O2 82, Arterial Blood HCO3 29H, Arterial Blood Total CO2 30.0, Arterial Blood Oxygen Saturation 94, Arterial Blood Base Excess 4.2H, Andrea Test YES-POS, Blood Gas Ventilator Setting NO, Blood Gas Inspired Oxygen 50% 09/04/22 10:28: Glucometer 298H Assessment/Plan Assessment/Plan Assess & Plan/Chief Complaint AoC Respiratory failure Pulmonary Fibrosis COPD -On vapotherm Present oxygen requirement poses challenge to placement -IS 10x/hr -Duoneb PRN, Incruse Ellipta Inhaler, and Albuterol -On Sildenafil -On Solumedrol Afib with RVR -S/P pacemaker placement (2018) -Cardiology consulted and appreciated -On Eliquis and Lopressor -Recent increase in PO Diltiazem, now taking 240mg, in addition to 125ml IVP @ 5mls/hr -Did have an echocardiogram, which revealed an LVEF of 65-70%, with no major abnormalities noted -Tachycardia is improving (~100s from ~130bpm) -Given improved rate control, emphasis is on sending referrals out to other long-term care facilities given he does not want to return to [facility] CARLA -CPAP General debility -Consider PT/OT R MCA CVA, 2017 - Still has position deficits in leg, motor and strength almost back to normal -On Plavix, Aspirin, Zetia, and Lipitor HTN -On Lopressor HLD -On Zetia DM2 -Diabetic diet -On Novolog sliding scale GI PPX -Protonix LIYAH GABRIEL DO 09/05/22 0522: Assessment/Plan Assessment/Plan Assess & Plan/Chief Complaint Prognosis poor Patient and daughter in denial about prognosis Very difficult situation Supervisory-Addendum Brief Verification & Attestation Participated in pt care: history, MDM, physical Personally performed: exam, history, MDM, supervision of care Care discussed with: Medical Student Procedures: n/a Results interpretation: Verified all documentation Verification and Attestation of Medical Student E/M Service A medical student performed and documented this service in my presence. I reviewed and verified all information documented by the medical student and made modifications to such information, when appropriate. I personally performed the physical exam and medical decision making. Liyah Gabriel, Sep 05, 2022,05:21 HARJINDER OLEARY Sep 04, 2022 12:10 LIYAH GABRIEL DO Sep 05, 2022 05:22
--- NOTE | 2022-09-04 13:34 | Tele-ICU Progress Note ---
Subjective Date Seen by a Provider: Sep 04, 2022 Time Seen by a Provider: 13:33 Subjective/Events-last exam (Tele-ICU Physician , Progress Note ) Service provided via interactive audio and video telecommunications E-CARE system to a patient admitted to ICU bed in [facility]. Patient is seen today due to persistent need of ICU care Available chart/ vitals / labs / Images reviewed Video assessment done using teleICU camera, rest of exam as per RN Discussed with RN Events overnight : Afebrile hemodynamically stable Respiratory - VT I/O = not recorded - discussed with RN Drips: Pressors- no Consultants: quynh Hospital course: Recent hospitalization at [facility] in [place], [place] d/t resp failure d/t pneumonia and Influenza A on 07-21-22 - transferred to [place] in [place], [place] on 07-31-[address] [facility] 08/21/2022 09/01/22 -admitted to hospital with increased O2 needs 09/02/22- to ICU with afib RVR, VT 50% 35L now ( prior on 4-5 L NC ) 09/04- VT 35L 80% , at night BIPAP 12/6 50 % , BUMEX 0.5 x1 A/P Afute on chronic resp failure -at night BIPAP 12/6 50 % , day VT 35L 80% - WORSENING CXR with significant infiltrates , but reported h/o recent PNA and pulm fibrosis and low PCT ( off abx now ) - less likely PE ( was on NOAC ) - with reported exam by RN , suspect AECOPD , but will check PCT - cont iv steroid -given Pulm HTN will keep negative fluid status - BUMEX 0.5 x1 today AECOPD ( ? exacerbation of pulm fibrosisi - IF steroids , nebs - ([facility]s with [facility]) Pulmonary Fibrosis (diagnosed 3 months ago) - ? etiology and plans of Tx - baselinbe 2 L ( prior to recent illness ) Pulmonary HTN - on sildenafil and chronic oxygen at home (prior to admission) - followed by Dr. Kaur of pulmonary services in [place], [place] - keep negative volume status SINUS tach - monitor - as per cardiology h/o PAF - s/p pacemaker in 2019 - on apixaban 08/23/22 - stopped d/t episode of hematuria - resumed on 08-28-2209/02 - ECHO - EF 65% , limited study CARLA Does not tolerate CPAP, uses 2L O2 NC at night - will cont NIPPBV at night here recent tx for UTI DM II - ISS H/o previous CVA R MCA CVA - (October 2016) - Alexa 2016 - treated at [place] - per pt source undetermined - no residual Lines : PICC , (Central Line Necessity Reviewed) [place]: void OG: Nutrition: Analgesia: Anxiety/ delirium VTE Prophylaxis: eliquis Stress Ulcer Prophylaxis: na Plans in collaboration with bedside consultants and IM MDs. Discussed with RN to reach out if any questions or concerns A total of 31 minutes of critical care time was devoted to this patient today, required to treat and/or prevent further deterioration of critical care condition ( as above ) . I am remotely monitoring this patient from another state. I am unable to do the bedside exam, and history/physical and pertinent information is taken from other notes in the computer and bedside staff. . Sepsis Event Evaluation Height, Weight, BMI Height: '" Weight: lbs. oz. kg; 31.98 BMI Method: Exam Exam Patient acknowledged, consented, and participated in this virtual visit which was conducted using real time audio/video Vital Signs Date Time Temp Pulse Resp B/P (MAP) Pulse Ox O2 Delivery O2 Flow Rate FiO2 09/04/22 12:00 36.9 09/04/22 10:58 94 Vapotherm 35.00 80 09/04/22 10:00 105 23 100/92 (95) 96 Vapotherm 35.00 80.00 09/04/22 09:00 114 29 111/69 (83) 96 Vapotherm 35.00 80.00 09/04/22 08:00 118 24 119/77 (91) 94 Vapotherm 35.00 80.00 09/04/22 07:58 37.0 09/04/22 07:17 124 09/04/22 07:00 111 29 130/82 (98) 93 Vapotherm 35.00 80.00 09/04/22 06:56 Vapotherm 35.00 80.00 09/04/22 06:54 97 Vapotherm 40.00 100 09/04/22 06:38 Vapotherm 40.00 100.00 09/04/22 06:00 102 16 110/85 (93) 96 Vapotherm 30.00 60.00 09/04/22 05:00 36.8 09/04/22 05:00 105 16 97/63 (74) 92 Vapotherm 30.00 60.00 09/04/22 04:11 Vapotherm 30.00 60.00 09/04/22 04:00 108 17 101/68 (79) 94 Vapotherm 30.00 50.00 09/04/22 04:00 92 Vapotherm 30.00 60 09/04/22 03:00 108 18 103/65 (78) 95 Vapotherm 30.00 50.00 09/04/22 02:35 88 Vapotherm 25.00 45 09/04/22 02:34 106 27 89 50.00 09/04/22 02:18 Vapotherm 30.00 50.00 09/04/22 02:00 112 22 155/89 (111) 98 NIV Bilevel 50.00 09/04/22 01:00 105 16 106/76 (86) 97 NIV Bilevel 50.00 09/04/22 01:00 109 09/04/22 00:00 109 22 109/74 (86) 98 NIV Bilevel 50.00 09/04/22 00:00 36.9 09/04/22 00:00 92 NIV Bilevel 50 09/03/22 23:00 112 16 94/62 (73) 95 NIV Bilevel 50.00 09/03/22 22:00 112 19 121/67 (85) 100 NIV Bilevel 50.00 09/03/22 21:16 NIV Bilevel 50.00 09/03/22 21:15 NIV Bilevel 40.00 09/03/22 21:14 117 28 98 50.00 09/03/22 21:00 121 27 136/79 (98) 90 Vapotherm 25.00 60.00 09/03/22 20:00 92 Vapotherm 40 09/03/22 20:00 120 13 122/68 (86) 91 Vapotherm 25.00 60.00 09/03/22 19:38 37.0 09/03/22 19:00 120 09/03/22 19:00 118 18 124/66 (85) 94 Vapotherm 25.00 60.00 09/03/22 18:00 125 121/69 (86) 90 Vapotherm 25.00 60.00 09/03/22 17:00 113 109/66 (80) 99 Vapotherm 25.00 60.00 09/03/22 16:33 36.5 09/03/22 16:00 92 Vapotherm 40 09/03/22 16:00 120 95/58 (70) 98 Vapotherm 25.00 60.00 09/03/22 15:00 128 108/68 (81) 96 Vapotherm 25.00 60.00 09/03/22 14:29 95 Vapotherm 25.00 45 09/03/22 14:00 134 94 Vapotherm 25.00 60.00 I & O 09/04/22 07:00 Intake Total 1675 ml Balance 1675 ml Height & Weight Height: '" Weight: lbs. oz. kg; 31.98 BMI Method: General Appearance: No Apparent Distress HEENT: PERRL/EOMI; No Scleral Icterus (L), No Scleral Icterus (R) Neck: Full Range of Motion, Supple; No Lymphadenopathy (L), No Lymphadenopathy (R) Respiratory: Chest Non Tender, Lungs Clear, Decreased Breath Sounds (Slight improvement from yesterday) Cardiovascular: No Edema, No Gallop, No Murmur, Tachycardia Capillary Refill: Less Than 3 Seconds Peripheral Pulses: 2+ Radial Pulses (R), 2+ Radial Pulses (L) Extremity: Non Tender, No Calf Tenderness, No Pedal Edema Neurologic/Psychiatric: Alert, Oriented x3 Skin: Warm/Dry Lymphatic: No Adenopathy Results Lab Laboratory Tests 09/03/22 03:57 09/04/22 04:30 Assessment/Plan Assessment/Plan 1 PILI SANTO MD Sep 04, 2022 13:34
--- NOTE | 2022-09-04 16:18 | Diagnostic Imaging Report ---
INDICATION: Shortness of air, congestive failure. COMPARISON: 09/03/2022. FINDINGS: Severe five-lobe coarse mixed interstitial and airspace opacities are slightly more dense than on prior. It is unclear if this is worsened edema or pneumonia. Upper limits heart size showed no clear change. The vascularity is largely obscured by the background infiltrates. No effusion or pneumothorax. IMPRESSION: Mild progression of severe five-lobe mixed interstitial and airspace disease. Dictated by: Dictated on workstation # [id number]
[2022-09-04] MEDS: eZETimibe 10 MG (ZETIA) TABLET PO SCH (20:34)
[2022-09-05] MEDS: RT-IPRATROPIUM (ATROVENT) 0.5MG/2.5ML AMP IH SCH ×6 (02:30→21:26)
[2022-09-05] MEDS: RT-ALBUTEROL SULF 2.5 MG/3 ML PRE-MIX VIAL INH SCH ×6 (02:30→21:26)
[2022-09-05 04:53] LABS: BASOPHILS % (AUTO) 0 % (0-10); EOSINOPHILS % (AUTO) 0 % (0-10); HEMATOCRIT 39 % (40-54); LYMPHOCYTES # (AUTO) 0.5 10^3/uL (1.0-4.0); LYMPHOCYTES % (AUTO) 5 % (12-44); MEAN CORPUSCULAR HEMOGLOBIN 32 pg (25-34); MEAN CORPUSCULAR HGB CONC 33 g/dL (32-36); MEAN CORPUSCULAR VOLUME 97 fL (80-99); MEAN PLATELET VOLUME 10.2 fL (9.0-12.2); MONOCYTES # (AUTO) 0.6 10^3/uL (0.0-1.0); MONOCYTES % (AUTO) 6 % (0-12); NEUTROPHILS # (AUTO) 8.7 10^3/uL (1.8-7.8); NEUTROPHILS % (AUTO) 86 % (42-75); PLATELET COUNT 160 10^3/uL (130-400)
[2022-09-05 05:16] LABS: CALCIUM 8.9 MG/DL (8.5-10.1); CREATININE SERUM 1.04 MG/DL (0.60-1.30); MAGNESIUM 2.4 MG/DL (1.6-2.4); PHOSPHORUS 3.6 MG/DL (2.3-4.7); POTASSIUM 4.3 MMOL/L (3.6-5.0)
[2022-09-05] MEDS: KCL 20 MEQ TAB (K-DUR) PO SCH (05:19)
[2022-09-05] MEDS: MAGNESIUM 1 GM/100 ML IVPB 100 ML IV SCH (05:19)
[2022-09-05] MEDS: POTASSIUM CL 10MEQ/50ML IVPB 50 ML IV SCH (05:19)
[2022-09-05] MEDS: inSUlin ASPART (NovoLOG) 1 UNIT/0.01 ML (CHARGE PER UNIT) SC SCH ×4 (05:50→21:25)
[2022-09-05] MEDS: MULTIVIT W/MINERALS TAB (THERAGRAN M) PO SCH (05:50)
[2022-09-05] MEDS: methylPREDNISolone 125 MG (Solu-MEDROL) VIAL IVP SCH ×3 (05:50→21:20)
[2022-09-05] MEDS: PANTOPRAZOLE 40 MG (PROTONIX) TAB PO SCH (05:51)
[2022-09-05 07:06] VITALS: BP 136/76
--- NOTE | 2022-09-05 08:48 | Diagnostic Imaging Report ---
INDICATION: Shortness of breath Portable chest 4:59 AM There is a dual-chamber pacemaker. There is cardiomegaly with pulmonary vascular congestion and alveolar edema. IMPRESSION: Congestive heart failure. No significant change from previous day. Dictated by: Dictated on workstation # [id number]
[2022-09-05] MEDS ORDERED: BUMETANIDE 1 MG/4 ML (BUMEX) VIAL IV NR (09:30)
[2022-09-05] MEDS: SENNOSIDES 8.6 MG (SENOKOT) TAB PO SCH ×2 (09:36→21:20)
[2022-09-05] MEDS: SILDENAFIL 20 MG (REVATIO) TAB PO SCH (09:36)
[2022-09-05] MEDS: meTOprolol TARTRATE 25 MG (LOPRESSOR) TABLET PO SCH ×3 (09:36→21:19)
[2022-09-05] MEDS: APIXABAN 5 MG (ELIQUIS) TABLET PO SCH ×2 (09:36→21:19)
[2022-09-05] MEDS: ASPIRIN 81 MG CHEW (CHILDREN'S ASA) PO SCH (09:36)
[2022-09-05] MEDS: polyethylene glycoL POWDER 17 GM (MIRALAX) PACK PO SCH ×2 (09:36→21:21)
[2022-09-05] MEDS: NEO/POLY/BAC (NEOSPORIN) OINT 15 GM TUBE TOP SCH ×2 (09:37→21:20)
[2022-09-05] MEDS: SENNA W/DOCUSATE (SENOKOT S) TABLET PO SCH ×2 (09:37→21:20)
[2022-09-05] MEDS: dilTIAZem DRIP PRE-MIX 125 ML IV SCH (09:58)
[2022-09-05] MEDS: ACETAMINOPHEN 325 MG TABLET PO PRN (09:58)
--- NOTE | 2022-09-05 10:10 | Physical Therapy Daily Note ---
PT Daily Note-Current Subjective Patient on BiPap upon PT arrival. Requests to switch to Vapotherm. PT notified RN and RT. RT present to switch. Pain Numeric Pain Scale: 0-No Pain Location: No Pain Reported Section J - Health Conditions 1. Rarely or not at all 2. Occasionally 3. Frequently 4. Almost constantly 8. Unable to answer Pain Effect on Sleep: 1 Pain Interference with Therapy: 1 Pain Interference w/Day-to-Day: 1 Mental Status Patient Orientation: Normal For Age Attachments: Oxygen (bipap and vapotherm) Transfers SCALE: Activities may be completed with or without assistive devices. 5-Cmcfrthydq-gdndbai completes the activity by him/herself with no assistance from a helper. 5-Set-up or Clean-up Assistance-helper sets up or cleans up; patient completes activity. [place] assists only prior to or following the activity. 4-Supervision or Touching Assistance-helper provides verbal cues and/or touching/steadying and/or contact guard assistance as patient completes activity. Assistance may be provided throughout the activity or intermittently. 3-Partial/Moderate Assistance-helper does LESS THAN HALF the effort. [place] lifts, holds or supports trunk or limbs, but provides less than half the effort. 2-Substantial/Maximal Assistance-helper does MORE THAN HALF the effort. [place] lifts or holds trunk or limbs and provides more than half the effort. 5-Nqdemejke-wnnacj does ALL the effort. Patient does none of the effort to complete the activity. Or, the assistance of 2 or more helpers is required for the patient to complete the activity. If activity was not attempted, code reason: 7-Patient Refused. 9-Not Applicable-not attempted and the patient did not perform the activity before the current illness, exacerbation or injury. 10-Not Attempted due to Environmental Limitations-(lack of equipment, weather restraints, etc.). 88-Not Attempted due to Medical Conditions or Safety Concerns. Lying to Sitting/Side of Bed(Q: 4 Sit to Stand (QC): 4 Chair/Ubd-et-Rsbxm Xfer(QC): 4 Gait Training Distance: 3 steps Gait Assistive Device: FWW Assessment Patient requires time due to increase SOA at rest and with minimal activity and prolonged recovery. Education with patient on pursed lip breathing. Patient's SAO2 decreases to 76% on Bipap to EOB with RT switching to Vapotherm 80%/35L. Patient require several minutes to improve SAO2 to 90%. Upon transfer to recliner, patient SAO2 decreased to 80% with prolonged recovery with RN increasing Vapotherm settings to 85%/35L. Patient remains up in recliner with needs met. Patient's SAO2 91% when session ended. PT Aging Box Hand Goals Senior Care Goals PT Aging Box Hand Goals Time Frame: Sep 20, 2022 Roll Left & Right (QC): 6 Sit to Lying (QC): 6 Lying-Sitting on Side/Bed(QC): 6 Sit to Stand (QC): 6 Chair/Gaa-jt-Gbbba Xfer(QC): 6 Toilet Transfer (QC): 6 Walk 10 feet (QC): 4 Walk 50ft with 2 Turns (QC): 4 PT Plan Treatment/Plan Treatment Plan: Continue Plan of Care Treatment Plan: Bed Mobility, Education, Functional Activity Cece, Functional Strength, Gait, Safety, Therapeutic Exercise, Transfers Treatment Duration: Sep 20, 2022 Frequency: 6 times per week Estimated Hrs Per Day: .25 hour per day Patient and/or Family Agrees t: Yes Time Time In: 811 Time Out: 834 DATE: Sep 05, 2022 Total Billed Treatment Time: 23 Total Billed Treatment 1 visit FA x 2 23 min ISAIAH RUIZ PT Sep 05, 2022 10:10
--- NOTE | 2022-09-05 10:10 | Occupational Ther Daily Note ---
OT Current Status-Daily Note Subjective up in chair, comfortable c/o head ache, RN notified Pain Numeric Pain Scale: 5-Moderate Pain Location Body Site: Head Pain Description: Ache, Throbbing Comment: Nurse to give tylenol Mental Status/Objective Patient Orientation: Normal For Age Attachments: IV, Oxygen (Vapotherm for his oxygen needs and it is set at 35liters at 80% ), Telemetry ADL-Treatment Patient request to use urinal during 2 minute standing assessment for endurance, sat in recliner after urinal to prepare BSC for BM Therapy Code Descriptions/Definitions Functional [place] Measure: 0=Not Assessed/NA 4=Minimal Assistance 1=Total Assistance 5=Supervision or Setup 2=Maximal Assistance 6=Modified [place] 3=Moderate Assistance 7=Complete IndependenceSCALE: Activities may be completed with or without assistive devices. 0-Rmesrnusub-oonwyis completes the activity by him/herself with no assistance from a helper. 5-Set-up or Clean-up Assistance-helper sets up or cleans up; patient completes activity. [place] assists only prior to or following the activity. 4-Supervision or Touching Assistance-helper provides verbal cues and/or touching/steadying and/or contact guard assistance as patient completes activity. Assistance may be provided throughout the activity or intermittently. 3-Partial/Moderate Assistance-helper does LESS THAN HALF the effort. [place] lifts, holds or supports trunk or limbs, but provides less than half the effort. 2-Substantial/Maximal Assistance-helper does MORE THAN HALF the effort. [place] lifts or holds trunk or limbs and provides more than half the effort. 4-Veumliqnf-pfcvdw does ALL the effort. Patient does none of the effort to complete the activity. Or, the assistance of 2 or more helpers is required for the patient to complete the activity. If activity was not attempted, code reason: 7-Patient Refused. 9-Not Applicable-not attempted and the patient did not perform the activity before the current illness, exacerbation or injury. 10-Not Attempted due to Environmental Limitations-(lack of equipment, weather restraints, etc.). 88-Not Attempted due to Medical Conditions or Safety Concerns. Eating (QC): 6 (new fluid restriction at 1500ml) Oral Hygiene (QC): 7 (not performed) Shower/Bathe Self (QC): 88 Upper Body Dressing (QC): 4 Lower Body Dressing (QC): 7 (socks already on, no brief on, no pants on per pt request) On/Off Footwear: 7 (already on) Toileting Hygiene (QC): 2 Toilet Transfer (QC): 3 Other Treatment EOB BUE functional exercise 10x 3 reps 02 sustained 88-96% throughout, 2 minute standing w/ stable 02 levels and PLB cues. Education OT Patient Education: Correct positioning, Energy conservation, Exercise program, Modified ADL techniques, Progress toward Goal/Update tx plan, Purpose of tx/functional activities, Reviewed precautions, Rehab process, Safety issues, Transfer techniques, Use of adapted equipment Teaching Recipient: Patient Teaching Methods: Demonstration, Discussion Response to Teaching: Verbalize Understanding, Return Demonstration, Reinforcement Needed OT Fci Goals Roller Print Tender Goals Eating (QC): 6 Oral Hygiene (QC): 6 Toileting Hygiene (QC): 6 Shower/Bathe Self (QC): 6 Upper Body Dressing (QC): 6 Lower Body Dressing (QC): 6 On/Off Footwear (QC): 6 1=Demonstrate adherence to instructed precautions during ADL tasks. 2=Patient will verbalize/demonstrate understanding of assistive devic es/modifications for ADL. 3=Patient will improve strength/tolerance for activity to enable patient to perform ADL's. OT Education/Plan Problem List/Assessment Assessment: Decreased Activ Tolerance, Decreased UE Strength, Impaired Bed Mobility, Impaired Cognition, Impaired Coordination, Impaired Funct Balance, Impaired Self-Care Skills Discharge Recommendations Plan/Recommendations: Continue POC Therapy Discharge Recommendati: Post Acute OT Treatment Plan/Plan of Care Treatment,Training & Education: Yes Patient would benefit from OT for education, treatment and training to promote independence in ADL's, mobility, safety and/or upper extremity function for ADL's. Plan of Care: ADL Retraining, Cognitive Retraining, Concurrent Therapy, Functional Mobility, Group Exercise/Act as Ind Treatment Duration: Sep 13, 2022 Frequency: 3 times per week (3-5 times per week) Estimated Hrs Per Day: .25 hour per day Agreement: Yes Rehab Potential: Guarded Patient remains on BSC to complete BM, RN and student in room, all needs met Time Start Time: 09:30 Stop Time: 10:02 DATE: Sep 05, 2022 Total Time Billed (hr/min): 32 Billed Treatment Time 1 visit ADL1, EX 1 32 min DRINNEN,IRWIN OT Sep 05, 2022 10:10
[2022-09-05] MEDS: UMECLIDINIUM BROMIDE (INCRUSE ELLIPTA) 7'S IH SCH (11:03)
--- NOTE | 2022-09-05 12:14 | Tele-ICU Progress Note ---
Subjective Date Seen by a Provider: Sep 05, 2022 Time Seen by a Provider: 12:13 Subjective/Events-last exam (Tele-ICU Physician , Progress Note ) Service provided via interactive audio and video telecommunications E-CARE system to a patient admitted to ICU bed in [facility]. Patient is seen today due to persistent need of ICU care Available chart/ vitals / labs / Images reviewed Video assessment done using teleICU camera, rest of exam as per RN Discussed with RN Events overnight : Afebrile hemodynamically stable Respiratory - VT I/O = not recorded - discussed with RN Drips: Pressors- no Consultants: quynh Hospital course: Recent hospitalization at [facility] in [place], [place] d/t resp failure d/t pneumonia and Influenza A on 07-21-22 - transferred to [place] in [place], [place] on 07-31-22 transferrred to [facility] 08/21/2022 09/01/22 -admitted to hospital with increased O2 needs 09/02/22- to ICU with afib RVR, VT 50% 35L now ( prior on 4-5 L NC ) 2/2- VT 35L 80% , at night BIPAP 12/6 50 % , BUMEX 0.5 x1 2/3 - VT 35l 85% ( bipap night 50 % ) ( UO 1.5L , po intake 1.7 L ) A/P Afute on chronic resp failure -at night BIPAP 12/6 50 % , day VT 35L 80% - WORSENING CXR with significant infiltrates , but reported h/o recent PNA and pulm fibrosis and low PCT ( off abx now ) - less likely PE ( was on NOAC ) - with reported exam by RN , suspect AECOPD , but will check PCT - cont iv steroid -given Pulm HTN will keep negative fluid status - BUMEX 0.5 x1 2/2--> ( UO 1.5L , po intake 1.7 L ) . will limit PO INTAKE AND GIVE ADDITIONAL BUMEX TODAY AECOPD ( ? exacerbation of pulm fibrosisi - IF steroids , nebs - (Follows with [facility]) Pulmonary Fibrosis (diagnosed 3 months ago) - ? etiology and plans of Tx - baselinbe 2 L ( prior to recent illness ) Pulmonary HTN - on sildenafil and chronic oxygen at home (prior to admission) - followed by Dr. 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 Discussed with RN to reach out if any questions or concerns A total of 32 minutes of critical care time was devoted to this patient today, required to treat and/or prevent further deterioration of critical care conditi on ( as above ) . I am remotely monitoring this patient from another state. I am unable to do the bedside exam, and history/physical and pertinent information is taken from other notes in the computer and bedside staff. . Sepsis Event Evaluation Height, Weight, BMI Height: '" Weight: lbs. oz. kg; 31.98 BMI Method: Exam Exam Patient acknowledged, consented, and participated in this virtual visit which was conducted using real time audio/video Vital Signs Date Time Temp Pulse Resp B/P (MAP) Pulse Ox O2 Delivery O2 Flow Rate FiO2 09/05/22 11:00 108 26 119/79 (94) 90 NIV Bilevel 50.00 09/05/22 10:00 129 25 130/86 (112) 94 NIV Bilevel 50.00 09/05/22 09:00 121 106/73 (86) 93 NIV Bilevel 50.00 09/05/22 08:45 NIV Bilevel 50 09/05/22 08:00 109 19 132/83 (98) 94 NIV Bilevel 50.00 09/05/22 07:54 36.5 09/05/22 07:06 103 25 94 50.00 09/05/22 07:00 102 10 136/76 (100) 94 NIV Bilevel 50.00 09/05/22 07:00 105 09/05/22 06:00 90 15 113/70 (84) 96 NIV Bilevel 50.00 09/05/22 05:00 91 16 130/79 (96) 94 NIV Bilevel 50.00 09/05/22 04:00 95 NIV Bilevel 50 09/05/22 04:00 36.8 09/05/22 04:00 93 16 94 NIV Bilevel 50.00 09/05/22 03:00 94 17 126/67 (86) 93 NIV Bilevel 50.00 09/05/22 02:35 118 23 90 50.00 09/05/22 02:00 96 16 116/58 (77) 95 NIV Bilevel 50.00 09/05/22 01:00 96 09/05/22 01:00 97 15 104/60 (75) 95 NIV Bilevel 50.00 09/05/22 00:00 110 21 122/96 (105) 92 NIV Bilevel 50.00 09/05/22 00:00 95 NIV Bilevel 50 09/04/22 23:00 105 16 118/71 (87) 96 NIV Bilevel 50.00 09/04/22 22:00 108 15 105/73 (84) 95 NIV Bilevel 50.00 09/04/22 21:00 120 24 124/77 (93) 92 NIV Bilevel 50.00 09/04/22 20:49 NIV Bilevel 50.00 09/04/22 20:47 117 23 91 50.00 09/04/22 20:00 114 19 114/64 (81) 96 Vapotherm 25.00 55.00 09/04/22 20:00 95 Vapotherm 35.00 60 09/04/22 19:45 37.0 09/04/22 19:08 95 Vapotherm 35.00 80 09/04/22 19:00 113 09/04/22 19:00 113 23 118/72 (87) 94 Vapotherm 25.00 55.00 09/04/22 18:00 118 38 118/77 (91) 95 Vapotherm 25.00 55.00 09/04/22 17:00 112 22 106/67 (80) 94 Vapotherm 25.00 55.00 09/04/22 16:00 95 Vapotherm 35.00 60 09/04/22 16:00 120 22 125/72 (89) 92 Vapotherm 25.00 55.00 09/04/22 16:00 36.3 09/04/22 15:13 93 Vapotherm 35.00 80 09/04/22 15:00 105 18 129/78 (95) 90 Vapotherm 25.00 55.00 09/04/22 14:00 105 35 112/85 (94) 94 Vapotherm 25.00 55.00 09/04/22 13:30 Vapotherm 25.00 55.00 09/04/22 13:00 112 38 118/70 (86) 95 Vapotherm 35.00 80.00 09/04/22 12:57 114 I & O 09/05/22 07:00 Intake Total 1735 ml Output Total 1925 ml Balance -190 ml Height & Weight Height: '" Weight: lbs. oz. kg; 31.98 BMI Method: General Appearance: No Apparent Distress HEENT: PERRL/EOMI; No Scleral Icterus (L), No Scleral Icterus (R) Neck: Full Range of Motion, Supple; No Lymphadenopathy (L), No Lymphadenopathy (R) Respiratory: Chest Non Tender, Lungs Clear, Decreased Breath Sounds (Slight improvement from yesterday) Cardiovascular: No Edema, No Gallop, No Murmur, Tachycardia Capillary Refill: Less Than 3 Seconds Peripheral Pulses: 2+ Radial Pulses (R), 2+ Radial Pulses (L) Extremity: Non Tender, No Calf Tenderness, No Pedal Edema Neurologic/Psychiatric: Alert, Oriented x3 Skin: Warm/Dry Lymphatic: No Adenopathy Results Lab Laboratory Tests 09/04/22 04:30 09/05/22 03:50 Assessment/Plan Assessment/Plan 1 PILI SANTO MD Sep 05, 2022 12:14
--- NOTE | 2022-09-05 13:51 | Progress Note ---
HARJINDER OLEARY 09/05/22 1351: Subjective Date Seen by a Provider: Sep 05, 2022 Time Seen by a Provider: 09:00 Subjective/Events-last exam Upon follow-up for AoC respiratory failure and AFiB with RVR, patient was sitting upright on the commode, with vapotherm in place. He states he was attempting a bowel movement, but was not able to. He states that he wore his BiPAP throughout the night, and was able to tolerate it okay. He further reports that his appetite is intact, and that his SOA is about the same as yesterday. Of note, patient seems to have improved rate control today, ranging from 90-108 BPM over the past 12 hours. CXR today revealed congestive heart failure, pul monary/vascular congestion, and alveolar edema. Patient and his daughter have decided to have referral sent to [facility] in [place], [place]. Patient is pleasant and conversational. Review of Systems General: No Chills, No Night Sweats; Fatigue HEENT: No Head Aches, No Visual Changes Pulmonary: Dyspnea; No Cough Cardiovascular: No: Chest Pain, Palpitations Gastrointestinal: No: Nausea, Vomiting, Abdominal Pain Genitourinary: No Dysuria, No Frequency Musculoskeletal: No: other, neck pain Neurological: Weakness; No: Change in speech Focused Exam Respiratory: Chest Non Tender, No Accessory Muscle Use, Crackles, Decreased Breath Sounds Cardiovascular: No Regular Rate, Rhythm; No JVD, No Murmur, Normal Peripheral Pulses, Tachycardia Capillary Refill: Less Than 3 Seconds Peripheral Pulses: 2+ Radial Pulses (R), 2+ Radial Pulses (L) Skin: normal color, warm/dry Objective Exam Last Set of Vital Signs Vital Signs Date Time Temp Pulse Resp B/P (MAP) Pulse Ox O2 Delivery O2 Flow Rate FiO2 09/05/22 13:00 105 24 109/88 (91) 96 Vapotherm 35.00 85.00 09/05/22 12:12 85 09/05/22 12:00 36.2 Capillary Refill : Less Than 3 Seconds I&O Intake and Output 09/05/22 00:00 Intake Total 1785 ml Output Total 1500 ml Balance 285 ml Intake Oral 1785 ml Output Urine Total 1500 ml # Urine Diapers 2 General: Alert, Oriented X3, Cooperative, No Acute Distress HEENT: Atraumatic, PERRLA, EOMI Neck: Supple, No JVD Lungs: Other (Decreased air movement, and crackles appreciated in bibasilar lo bes) Heart: No Murmurs, Other (Tachycardic) Abdomen: Normal Bowel Sounds, Soft Extremities: No Cyanosis, Normal Pulses Skin: No Rashes, No Significant Lesion Neuro: Normal Speech Psych/Mental Status: Mental Status NL, Mood NL Results Lab Laboratory Tests 09/04/22 15:46: Glucometer 246H 09/04/22 20:18: Glucometer 286H 09/05/22 03:50: White Blood Count 10.0, Red Blood Count 4.05L, Hemoglobin 13.0L, Hematocrit 39L, Mean Corpuscular Volume 97, Mean Corpuscular Hemoglobin 32, Mean Corpuscular Hemoglobin Concent 33, Red Cell Distribution Width 15.9H, Platelet Count 160, Mean Platelet Volume 10.2, Immature Granulocyte % (Auto) 2, Neutrophils (%) (Auto) 86H, Lymphocytes (%) (Auto) 5L, Monocytes (%) (Auto) 6, Eosinophils (%) (Auto) 0, Basophils (%) (Auto) 0, Neutrophils # (Auto) 8.7H, Lymphocytes # (Auto) 0.5L, Monocytes # (Auto) 0.6, Eosinophils # (Auto) 0.0, Basophils # (Auto) 0.0, Immature Granulocyte # (Auto) 0.2H, Sodium Level 139, Potassium Level 4.3, Chloride Level 103, Carbon Dioxide Level 25, Anion Gap 11, Blood Urea Nitrogen 31H, Creatinine 1.04, Estimat Glomerular Filtration Rate 74, BUN/Creatinine Ratio 30, Glucose Level 248H, Calcium Level 8.9, Corrected Calcium 9.7, Phosphorus Level 3.6, Magnesium Level 2.4, Total Bilirubin 1.0, Aspartate Amino Transf (AST/SGOT) 29, Alanine Aminotransferase (ALT/SGPT) 65H, Alkaline Phosphatase 64, B-Type Natriuretic Peptide 41.3, Total Protein 6.0L, Albumin 3.0L, Procalcitonin 0.03 09/05/22 10:52: Glucometer 320H Radiology Date of Exam:09/05/22 CHEST 1 VIEW, AP/PA ONLY INDICATION: Shortness of breath Portable chest 4:59 AM There is a dual-chamber pacemaker. There is cardiomegaly with pulmonary vascular congestion and alveolar edema. IMPRESSION: Congestive heart failure. No significant change from previous day. Assessment/Plan Assessment/Plan Assess & Plan/Chief Complaint AoC Respiratory failure Pulmonary Fibrosis Pulmonary Hypertension COPD -On vapotherm Present oxygen requirement poses challenge to placement Present goal is to attempt weaning supplemental oxygen -Fluid restriction to 1500 ml/day -Bumex -IS 10x/hr -Duoneb PRN, Incruse Ellipta Inhaler, and Albuterol -On Sildenafil -On Solumedrol Afib with RVR -S/P pacemaker placement (2019) -Cardiology consulted and appreciated -On Eliquis and Lopressor - PO Diltiazem in addition to 125ml IVP @ 5mls/hr -Did have an echocardiogram, which revealed an LVEF of 65-70%, with no major abnormalities noted -Tachycardia is improving (~100s) -Given improved rate control, referral has been sent to [facility] in [place], [place] -New PICC line placement d/t long-term care needs CARLA -BiPAP General debility -Consider PT/OT R MCA CVA, 2017 - Still has position deficits in leg, motor and strength almost back to normal -On Plavix, Aspirin, Zetia, and Lipitor HTN -On Lopressor HLD -On Zetia DM2 -Diabetic diet -On Novolog sliding scale GI PPX -Protonix LIYAH GABRIEL DO 09/05/22 1709: Supervisory-Addendum Brief Verification & Attestation Participated in pt care: history, MDM, physical Personally performed: exam, history, MDM, supervision of care Care discussed with: Medical Student Procedures: n/a Results interpretation: Verified all documentation Verification and Attestation of Medical Student E/M Service A medical student performed and documented this service in my presence. I reviewed and verified all information documented by the medical student and made modifications to such information, when appropriate. I personally performed the physical exam and medical decision making. Liyah Gabriel, Sep 05, 2022,17:09 HARJINDER OLEARY Sep 05, 2022 13:51 LIYAH GABRIEL DO Sep 05, 2022 17:09
--- NOTE | 2022-09-05 14:28 | Diagnostic Imaging Report ---
INDICATION: PICC line placement. Frontal chest obtained at 2:19 p.m. and compared to same day at 4:59 a.m. There is cardiomegaly with unchanged pacemaker device. There is very poor inspiration. There is central vascular congestion with bilateral infiltrates left greater than right. There is a new right-sided PICC line, the PICC line appears to be looped over the low SVC and then passes back up to the mid SVC. IMPRESSION: New right-sided PICC line is looped over lower SVC and then passes back to the upper SVC. Cardiomegaly and vascular congestion with unchanged bilateral infiltrates compared to earlier today. Dictated by: Dictated on workstation # [id number]
[2022-09-05] MEDS ORDERED: BUMETANIDE 1 MG/4 ML (BUMEX) VIAL ONE (15:42)
--- NOTE | 2022-09-05 16:24 | Progress Note - Cardiology ---
Cardiology SOAP Progress Note Subjective: Gen weakness No focal weakness Shortness of breath with activity No cp or palp or syncope No n/v/d Objective: I&O/Vital Signs 09/05/22 09/05/22 09/05/22 09/05/22 05:00 06:00 07:00 07:00 Pulse 91 90 105 102 Resp 16 15 10 B/P (MAP) 130/79 (96) 113/70 (84) 136/76 (100) Pulse Ox 94 96 94 O2 Delivery NIV Bilevel NIV Bilevel NIV Bilevel O2 Flow Rate 50.00 50.00 50.00 09/05/22 09/05/22 09/05/22 09/05/22 07:06 07:54 08:00 08:45 Temp 36.5 Pulse 103 109 Resp 25 19 B/P (MAP) 132/83 (98) Pulse Ox 94 94 O2 Delivery NIV Bilevel NIV Bilevel O2 Flow Rate 50.00 50.00 FiO2 50 09/05/22 09/05/22 09/05/22 09/05/22 09:00 09:25 10:00 11:00 Pulse 121 129 108 Resp 25 26 B/P (MAP) 106/73 (86) 130/86 (112) 119/79 (94) Pulse Ox 93 94 90 O2 Delivery NIV Bilevel Vapotherm NIV Bilevel NIV Bilevel O2 Flow Rate 50.00 35.00 50.00 50.00 85.00 09/05/22 09/05/22 09/05/22 09/05/22 11:02 12:00 12:00 12:12 Temp 36.2 Pulse 103 Resp 27 B/P (MAP) 119/66 (83) Pulse Ox 97 O2 Delivery Vapotherm Vapotherm Vapotherm O2 Flow Rate 35.00 35.00 85.00 85.00 FiO2 85 09/05/22 09/05/22 09/05/22 09/05/22 12:58 13:00 14:00 14:27 Pulse 108 105 95 Resp 24 29 B/P (MAP) 109/88 (91) 121/61 (94) Pulse Ox 96 97 O2 Delivery Vapotherm Vapotherm Vapotherm O2 Flow Rate 35.00 35.00 35.00 85.00 85.00 80.00 09/05/22 09/05/22 09/05/22 09/05/22 14:43 14:46 15:00 15:54 Pulse 95 Resp 24 B/P (MAP) 91/54 (66) Pulse Ox 94 88 97 O2 Delivery Vapotherm Vapotherm Vapotherm Vapotherm O2 Flow Rate 30.00 30.00 30.00 30.00 80.00 80.00 70.00 FiO2 80 09/05/22 09/05/22 16:00 16:00 Pulse 91 Resp 16 B/P (MAP) 106/59 (77) Pulse Ox 95 O2 Delivery Vapotherm Vapotherm O2 Flow Rate 30.00 70.00 FiO2 70 09/05/22 00:00 Intake Total 1335 ml Output Total 1375 ml Balance -40 ml Constitutional: AAO x 3, well-developed, well-nourished Respiratory: No accessory muscle use, No respiratory distress; chest expansion is symmetric, chest is bilaterally symmetric, other (diminished throughout; dyspneic with simple conversation) Cardiovascular: regular rate-rhythm, tachycardia, systolic murmur (soft ELDER at card base) Gastrointestional: No tender; soft, audible bowel sounds Extremities: No significant edema Neurologic/Psychiatric: oriented x 3, other (moves all limbs equally) Skin: normal color, warm/dry Results/Procedures: Labs Laboratory Tests 09/04/22 20:18: Glucometer 286H 09/05/22 03:50: White Blood Count 10.0, Red Blood Count 4.05L, Hemoglobin 13.0L, Hematocrit 39L, Mean Corpuscular Volume 97, Mean Corpuscular Hemoglobin 32, Mean Corpuscular Hemoglobin Concent 33, Red Cell Distribution Width 15.9H, Platelet Count 160, Mean Platelet Volume 10.2, Immature Granulocyte % (Auto) 2, Neutrophils (%) (Auto) 86H, Lymphocytes (%) (Auto) 5L, Monocytes (%) (Auto) 6, Eosinophils (%) (Auto) 0, Basophils (%) (Auto) 0, Neutrophils # (Auto) 8.7H, Lymphocytes # (Auto) 0.5L, Monocytes # (Auto) 0.6, Eosinophils # (Auto) 0.0, Basophils # (Auto) 0.0, Immature Granulocyte # (Auto) 0.2H, Sodium Level 139, Potassium Level 4.3, Chloride Level 103, Carbon Dioxide Level 25, Anion Gap 11, Blood Urea Nitrogen 31H, Creatinine 1.04, Estimat Glomerular Filtration Rate 74, BUN/Creatinine Ratio 30, Glucose Level 248H, Calcium Level 8.9, Corrected Calcium 9.7, Phosphorus Level 3.6, Magnesium Level 2.4, Total Bilirubin 1.0, Aspartate Amino Transf (AST/SGOT) 29, Alanine Aminotransferase (ALT/SGPT) 65H, Alkaline Phosphatase 64, B-Type Natriuretic Peptide 41.3, Total Protein 6.0L, Albumin 3.0L, Procalcitonin 0.03 09/05/22 10:52: Glucometer 320H 09/05/22 15:47: Glucometer 180H Laboratory Tests 09/04/22 04:30 09/05/22 03:50 A/P: Assessment: Pneumonia or interstitial lung disease - management per eICU and medical services Acute on chronic resp failure - Recent hospitalization at [facility] in [place], [place] d/t resp failure d/t pneumonia and Influenza A on 07-21-22 - transferred to [facility] in [place], [place] on 07-31-22 - admitted to [facility] in mid Aug 2022 - Pulmonary HTN of undetermined etiology - on sildenafil and chronic oxygen at home (prior to admission) - followed by Dr. Kaur of pulmonary services in [place], [place] - deteriorating resp status requiring transfer to ICU on 09-02-22 - requiring Vapo-therm (Vapo-therm increased this morning 09-04-22) SSS. PAF with controlled vent response seen on tele of 08/23/22 (CHADSVASc score 6) - s/p pacemaker in 2019, followed by Dr Carpenter at [facility] - had been on apixaban for stroke prophylaxis since 08/23/22 - stopped (by medical services) d/t episode of hematuria - resumed on 08-28-22 - Echocardiogram of 09-02-22 showed LVEF 65-70%. Trivial AoR H/o HTN H/o HLD CARLA DM 2 H/o previous CVA - Alexa2016 - treated at [facility] - per pt source undetermined - no residual COPD H/o tobaccoism - quit 30 yrs ago Plan: * Pulm htn and ac on ch resp failure management is with the Med and ICU svce * Continue BB and dilt because of a h/o PAF * Resp failure does not appear to be primarily of cardiac origin (normal LVEF, normal BNP). Advise transfer to tertiary care facility with pulmonology services * Monitor labs EDUARDO LANE MD FACP FACC CCDS Sep 05, 2022 16:24
[2022-09-05] MEDS: eZETimibe 10 MG (ZETIA) TABLET PO SCH (21:20)
[2022-09-05 21:27] VITALS: BP 118/80
[2022-09-06] MEDS: RT-IPRATROPIUM (ATROVENT) 0.5MG/2.5ML AMP IH SCH ×6 (02:05→22:02)
[2022-09-06] MEDS: RT-ALBUTEROL SULF 2.5 MG/3 ML PRE-MIX VIAL INH SCH ×6 (02:05→22:02)
[2022-09-06] MEDS: methylPREDNISolone 125 MG (Solu-MEDROL) VIAL IVP SCH ×4 (03:06→21:02)
[2022-09-06 03:16] LABS: BASOPHILS % (AUTO) 0 % (0-10); EOSINOPHILS % (AUTO) 0 % (0-10); HEMATOCRIT 43 % (40-54); HEMOGLOBIN 14.3 g/dL (13.3-17.7); LYMPHOCYTES # (AUTO) 0.6 10^3/uL (1.0-4.0); LYMPHOCYTES % (AUTO) 7 % (12-44); MEAN CORPUSCULAR HEMOGLOBIN 32 pg (25-34); MEAN CORPUSCULAR HGB CONC 34 g/dL (32-36); MEAN CORPUSCULAR VOLUME 96 fL (80-99); MEAN PLATELET VOLUME 9.8 fL (9.0-12.2); MONOCYTES # (AUTO) 0.4 10^3/uL (0.0-1.0); MONOCYTES % (AUTO) 4 % (0-12); NEUTROPHILS % (AUTO) 86 % (42-75); PLATELET COUNT 176 10^3/uL (130-400); WHITE BLOOD COUNT 9.3 10^3/uL (4.3-11.0)
[2022-09-06 03:23] LABS: ALBUMIN 3.4 GM/DL (3.2-4.5); POTASSIUM 4.2 MMOL/L (3.6-5.0)
[2022-09-06 03:26] LABS: TOTAL PROTEIN 6.5 GM/DL (6.4-8.2)
[2022-09-06 03:27] LABS: BILIRUBIN,TOTAL 1.2 MG/DL (0.1-1.0)
[2022-09-06 03:29] LABS: CREATININE SERUM 0.93 MG/DL (0.60-1.30); PHOSPHORUS 3.8 MG/DL (2.3-4.7)
[2022-09-06 03:32] LABS: MAGNESIUM 2.4 MG/DL (1.6-2.4)
[2022-09-06] MEDS: POTASSIUM CL 10MEQ/50ML IVPB 50 ML IV SCH (03:33)
[2022-09-06] MEDS: KCL 20 MEQ TAB (K-DUR) PO SCH (03:33)
[2022-09-06] MEDS: MAGNESIUM 1 GM/100 ML IVPB 100 ML IV SCH (03:33)
[2022-09-06 04:33] LABS: ABG BASE EXCESS 8.7 MMOL/L (-2.5-2.5); ABG OXYGEN SATURATION 83 % (94-100); ABG PCO2 52 MMHG (35-45); ABG PH 7.42 (7.37-7.43); ABG PO2 53 MMHG (79-93)
[2022-09-06 04:34] LABS: ALLENS TEST YES-POS; INSPIRED O2 50%
[2022-09-06 04:35] LABS: PATIENT TEMP 36.8; VENTILATOR NO
[2022-09-06] MEDS: PANTOPRAZOLE 40 MG (PROTONIX) TAB PO SCH (06:04)
[2022-09-06] MEDS: MULTIVIT W/MINERALS TAB (THERAGRAN M) PO SCH (06:04)
[2022-09-06] MEDS: inSUlin ASPART (NovoLOG) 1 UNIT/0.01 ML (CHARGE PER UNIT) SC SCH ×4 (06:04→21:03)
--- NOTE | 2022-09-06 06:35 | Progress Note ---
Subjective Date Seen by a Provider: Sep 06, 2022 Time Seen by a Provider: 11:00 Subjective/Events-last exam Patient seen and examined Patient about the same Remains on Vapotherm 30 L and 70% Requires ICU due to intubation risk Cannot really move around without the desating Review of Systems Pulmonary: Dyspnea, Cough Objective Exam Last Set of Vital Signs Vital Signs Date Time Temp Pulse Resp B/P (MAP) Pulse Ox O2 Delivery O2 Flow Rate FiO2 09/06/22 06:00 102 15 136/95 (109) 96 Vapotherm 30.00 70.00 09/06/22 04:00 50 09/06/22 03:00 36.7 Capillary Refill : Less Than 3 Seconds I&O Intake and Output 09/06/22 00:00 Intake Total 1475 ml Output Total 1875 ml Balance -400 ml Intake Oral 1475 ml Output Urine Total 1875 ml General: Alert, Oriented X3, Cooperative, No Acute Distress Lungs: Clear to Auscultation, Normal Air Movement Heart: Regular Rate, Normal S1, Normal S2, No Murmurs Psych/Mental Status: Mental Status NL, Mood NL Results Lab Laboratory Tests 09/05/22 10:52: Glucometer 320H 09/05/22 15:47: Glucometer 180H 09/05/22 20:43: Glucometer 248H 09/06/22 03:05: White Blood Count 9.3, Red Blood Count 4.44, Hemoglobin 14.3, Hematocrit 43, Delphine n Corpuscular Volume 96, Mean Corpuscular Hemoglobin 32, Mean Corpuscular Hemoglobin Concent 34, Red Cell Distribution Width 15.6H, Platelet Count 176, Mean Platelet Volume 9.8, Immature Granulocyte % (Auto) 2, Neutrophils (%) (Auto) 86H, Lymphocytes (%) (Auto) 7L, Monocytes (%) (Auto) 4, Eosinophils (%) (Auto) 0, Basophils (%) (Auto) 0, Neutrophils # (Auto) 8.0H, Lymphocytes # (Auto) 0.6L, Monocytes # (Auto) 0.4, Eosinophils # (Auto) 0.0, Basophils # (Auto) 0.0, Immature Granulocyte # (Auto) 0.2H, Sodium Level 139, Potassium Level 4.2, Chloride Level 99, Carbon Dioxide Level 27, Anion Gap 13, Blood Urea Nitrogen 29H, Creatinine 0.93, Estimat Glomerular Filtration Rate 85, BUN/Creatinine Ratio 31, Glucose Level 252H, Calcium Level 9.0, Corrected Calcium 9.5, Phosphorus Level 3.8, Magnesium Level 2.4, Total Bilirubin 1.2H, Aspartate Amino Transf (AST/SGOT) 62H, Alanine Aminotransferase (ALT/SGPT) 144H, Alkaline Phosphatase 66, Total Protein 6.5, Albumin 3.4 09/06/22 04:20: Blood Gas Puncture Site L RAD, Blood Gas Patient Temperature 36.8, Arterial Blood pH 7.42, Arterial Blood Partial Pressure CO2 52H, Arterial Blood Partial Pressure O2 53L, Arterial Blood HCO3 33H, Arterial Blood Total CO2 35.0H, Arterial Blood Oxygen Saturation 83L, Arterial Blood Base Excess 8.7H, Andrea Test YES-POS, Blood Gas Ventilator Setting NO, Blood Gas Inspired Oxygen 50% 09/06/22 05:58: Glucometer 269H Assessment/Plan Assessment/Plan Assess & Plan/Chief Complaint Prognosis poor Patient and daughter in denial about prognosis Very difficult situation Clinical Quality Measures Admission Status Admission Dx Acute on chronic respiratory failure requiring transfer from [facility] to [facility] ICU on Vapotherm and BiPAP at high risk for intubation Atrial fibrillation (Follows with Dr. Carpenter) - AV block s/p pacemaker placement; rate and rhythm controlled. 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) - Recent exacerbation - on 2L baseline, currently requiring more - continue incruse ellipta (LAMA) - DuoNebs PRN Pulmonary Fibrosis (diagnosed 3 months ago) - on sildenafil 20 - As above for COPD treatment PRN Urinary incontinence - Hodgson previous - Not currently taking reductase inhibitors/alpha blockers - Bladder scan for post void residual Hypertension - Hold home medication if normotensive T2DM - Monitor blood sugar - ISS as needed, adjust with exercise Hx of sleep apnea - Does not tolerate CPAP, uses 2L O2 NC at night - Baseline 2L Hematuria on 08/24/2022 -Hold anticoagulation and check urine UTI Pseudomonas Plan: Consult Cardiology Home meds O2 Monitor closely 08/22/2022: Patient doing well 08/23/2022: Eliquis 08/24/2022: Hold anticoagulation Check UA 08/25/2022: Change abx to Cipro and await UCx 08/26/2022: F/U on UCx Monitor closely 08/27/2022: Complete abx Hold OAC until UTI treated 08/28/2022: Monitor HR Appreciated Dr Barnes 08/29/2022: Restarted OAC yesterday Complete abx for UTI 08/30/2022: Complete abx 08/31/2022: Complete antibiotics today 09/01/2022: IV steroids DAYANA GABRIEL DO Sep 06, 2022 06:35
--- NOTE | 2022-09-06 08:23 | Diagnostic Imaging Report ---
INDICATION: Dyspnea. TIME OF EXAM: 5:57 AM. COMPARISON: Correlation is made with the prior chest from one day earlier. FINDINGS: The cardiac pacemaker remains in place. The heart is enlarged. The right-sided PICC line has been removed. Congestive changes persist. There is no significant effusion. There is no pneumothorax. IMPRESSION: PICC line removal. There continue to be congestive changes. Dictated by: Dictated on workstation # [id number]
[2022-09-06] MEDS: meTOprolol TARTRATE 25 MG (LOPRESSOR) TABLET PO SCH ×3 (08:47→21:02)
[2022-09-06] MEDS: SILDENAFIL 20 MG (REVATIO) TAB PO SCH (08:48)
[2022-09-06] MEDS: ASPIRIN 81 MG CHEW (CHILDREN'S ASA) PO SCH (08:48)
[2022-09-06] MEDS: APIXABAN 5 MG (ELIQUIS) TABLET PO SCH ×2 (08:48→21:02)
[2022-09-06] MEDS: SENNOSIDES 8.6 MG (SENOKOT) TAB PO SCH ×2 (08:49→21:04)
[2022-09-06] MEDS: SENNA W/DOCUSATE (SENOKOT S) TABLET PO SCH ×2 (08:49→21:04)
[2022-09-06] MEDS: polyethylene glycoL POWDER 17 GM (MIRALAX) PACK PO SCH ×2 (08:50→21:04)
[2022-09-06] MEDS: NEO/POLY/BAC (NEOSPORIN) OINT 15 GM TUBE TOP SCH ×2 (08:50→21:02)
--- NOTE | 2022-09-06 09:29 | Tele-ICU Progress Note ---
Subjective Date Seen by a Provider: Sep 06, 2022 Subjective/Events-last exam This virtual visit was conducted using real time audio/video. Thank you for asking us to see this patient for respiratory insufficiency due to AECOPD/IPF. Recent events: Admit 09/01, transfer to ICU 09/02 with increasing O2 needs, afib. PE: Appears comfortable. VSS. HR 100-110 ST. O2 sat 94% on VT 30/70%. HEENT: No obvious masses, adenopathy or JVD. Chest: clear to auscultation, diminished. CV: RRR S1 S2 No murmur or added sounds. Abd: Non-tender. Bowel sounds Y. : Unremarkable. Hodgson N. 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 No obvious focal findings. Extremities: No edema. Capillary refill < 3 seconds. Skin: unremarkable. Results: Elevated BUN 29, BG 269. AB.42/52/53 on 50%. CXR: Poor quality, B interstitial changes, L > R. PPM present. Available chart/ vitals / labs / images reviewed. Video assessment done using teleICU camera, rest of exam as per RN. A/P: Respiratory insufficiency: Continue present management with BiP/VT, incruse, duonebs, Sildenafil. Possible LTAC transfer. Monitor for increasing oxygenation needs and/or need for intubation. Critical Care: critically ill patient. Cont. Dilt., statin, plavix, eliq., ASA, PPI, Zetia, metop., SSI Discussed with RNs Malka/Tori. Asked RN to reach out to eICU if any questions or concerns later. Time spent with patient/coordination of care with other health professionals (mins): 22. Sepsis Event Evaluation Height, Weight, BMI Height: '" Weight: lbs. oz. kg; 31.77 BMI Method: Exam Exam Patient acknowledged, consented, and participated in this virtual visit which was conducted using real time audio/video Vital Signs Date Time Temp Pulse Resp B/P (MAP) Pulse Ox O2 Delivery O2 Flow Rate FiO2 09/06/22 08:00 112 24 145/100 (117) 92 Vapotherm 30.00 70.00 09/06/22 07:28 95 Vapotherm 30.00 70 09/06/22 07:00 105 22 146/107 (118) 97 Vapotherm 30.00 70.00 09/06/22 07:00 96 09/06/22 06:00 102 15 136/95 (109) 96 Vapotherm 30.00 70.00 09/06/22 05:00 105 24 140/102 (115) 96 Vapotherm 30.00 70.00 09/06/22 04:25 Vapotherm 30.00 70.00 09/06/22 04:00 103 18 160/104 (122) 93 NIV Bilevel 50.00 09/06/22 04:00 94 NIV Bilevel 50 09/06/22 03:00 105 16 150/91 (110) 95 NIV Bilevel 50.00 09/06/22 03:00 36.7 NIV Bilevel 50.00 09/06/22 02:10 97 26 96 50.00 09/06/22 02:00 94 15 157/91 (113) 95 NIV Bilevel 50.00 09/06/22 01:00 91 16 132/87 (102) 95 NIV Bilevel 50.00 09/06/22 01:00 91 09/06/22 00:00 87 26 126/82 (97) 93 NIV Bilevel 50.00 09/05/22 23:35 93 NIV Bilevel 50 09/05/22 23:25 36.5 108 24 93 NIV Bilevel 50.00 09/05/22 23:00 99 20 150/88 (108) 93 NIV Bilevel 50.00 09/05/22 22:00 107 17 137/76 (96) 91 NIV Bilevel 50.00 09/05/22 21:28 NIV Bilevel 50.00 09/05/22 21:27 105 30 94 50.00 09/05/22 21:00 106 19 118/80 (93) 95 Vapotherm 30.00 75.00 09/05/22 20:01 36.5 09/05/22 20:00 107 23 115/73 (87) 95 Vapotherm 30.00 75.00 09/05/22 19:40 96 Vapotherm 30.00 70 09/05/22 19:37 Vapotherm 30.00 75.00 09/05/22 19:04 92 Vapotherm 30.00 80 09/05/22 19:00 107 09/05/22 19:00 102 29 118/81 (93) 95 Vapotherm 30.00 80.00 09/05/22 19:00 Vapotherm 30.00 80.00 09/05/22 18:17 91 Vapotherm 30.00 80.00 09/05/22 18:00 106 15 106/74 (83) 93 Vapotherm 30.00 70.00 09/05/22 17:00 106 17 109/70 (86) 90 Vapotherm 30.00 70.00 09/05/22 16:00 Vapotherm 70 09/05/22 16:00 91 16 106/59 (77) 95 Vapotherm 30.00 70.00 09/05/22 16:00 37.2 09/05/22 15:54 97 Vapotherm 30.00 70.00 09/05/22 15:00 95 24 91/54 (66) 88 Vapotherm 30.00 80.00 09/05/22 14:46 Vapotherm 30.00 80.00 09/05/22 14:43 94 Vapotherm 30.00 80 09/05/22 14:27 Vapotherm 35.00 80.00 09/05/22 14:00 95 29 121/61 (94) 97 Vapotherm 35.00 85.00 09/05/22 13:00 105 24 109/88 (91) 96 Vapotherm 35.00 85.00 09/05/22 12:58 108 09/05/22 12:12 Vapotherm 85 09/05/22 12:00 103 27 119/66 (83) 97 Vapotherm 35.00 85.00 09/05/22 12:00 36.2 09/05/22 11:04 90 Vapotherm 35.00 85 09/05/22 11:04 92 Vapotherm 35.00 85 09/05/22 11:02 Vapotherm 35.00 85.00 09/05/22 11:00 108 26 119/79 (94) 90 NIV Bilevel 50.00 09/05/22 10:00 129 25 130/86 (112) 94 NIV Bilevel 50.00 09/05/22 09:25 Vapotherm 35.00 85.00 I & O 09/06/22 07:00 Intake Total 1450 ml Output Total 2100 ml Balance -650 ml Height & Weight Height: '" Weight: lbs. oz. kg; 31.77 BMI Method: General Appearance: No Apparent Distress HEENT: PERRL/EOMI; No Scleral Icterus (L), No Scleral Icterus (R) Neck: Full Range of Motion, Supple; No Lymphadenopathy (L), No Lymphadenopathy (R) Respiratory: Chest Non Tender, No Accessory Muscle Use, Crackles, Decreased Breath Sounds Cardiovascular: No Regular Rate, Rhythm; No JVD, No Murmur, Normal Peripheral Pulses, Tachycardia Capillary Refill: Less Than 3 Seconds Peripheral Pulses: 2+ Radial Pulses (R), 2+ Radial Pulses (L) Extremity: Non Tender, No Calf Tenderness, No Pedal Edema Neurologic/Psychiatric: Alert, Oriented x3 Skin: Warm/Dry Lymphatic: No Adenopathy Results Lab Laboratory Tests 09/05/22 03:50 09/06/22 03:05 Assessment/Plan Assessment/Plan See free text. Critical Care: Critically Ill Patient BRUCE CHEUNG MD Sep 06, 2022 09:29
--- NOTE | 2022-09-06 10:49 | Physical Therapy Daily Note ---
PT Daily Note-Current Subjective Pt supine in bed upon arrival to room, reports he does not want to get OOB, as he just got back from using BSC. Pt requests assistance to help reposition in bed, and to eat breakfast. Pain Section J - Health Conditions 1. Rarely or not at all 2. Occasionally 3. Frequently 4. Almost constantly 8. Unable to answer Pain Effect on Sleep: 1 Pain Interference with Therapy: 1 Pain Interference w/Day-to-Day: 1 Appearance Following session, pt in sitting position in bed, eating breakfast with all needs met. Call light, and phone within reach. Mental Status Attachments: Oxygen Transfers SCALE: Activities may be completed with or without assistive devices. 5-Gzgauhpqxo-pvfvmra completes the activity by him/herself with no assistance from a helper. 5-Set-up or Clean-up Assistance-helper sets up or cleans up; patient completes activity. [place] assists only prior to or following the activity. 4-Supervision or Touching Assistance-helper provides verbal cues and/or touching/steadying and/or contact guard assistance as patient completes activity. Assistance may be provided throughout the activity or intermittently. 3-Partial/Moderate Assistance-helper does LESS THAN HALF the effort. [place] lifts, holds or supports trunk or limbs, but provides less than half the effort. 2-Substantial/Maximal Assistance-helper does MORE THAN HALF the effort. [place] lifts or holds trunk or limbs and provides more than half the effort. 7-Pfdqvykvt-rbaoei does ALL the effort. Patient does none of the effort to complete the activity. Or, the assistance of 2 or more helpers is required for the patient to complete the activity. If activity was not attempted, code reason: 7-Patient Refused. 9-Not Applicable-not attempted and the patient did not perform the activity before the current illness, exacerbation or injury. 10-Not Attempted due to Environmental Limitations-(lack of equipment, weather restraints, etc.). 88-Not Attempted due to Medical Conditions or Safety Concerns. Roll Left & Right (QC): 4 Pt required SBA/CGA for bed mobility with assistance for covers and cueing. Assessment Current Status: Fair Progress Pt tolerated bed mobility and re-arranging well, refused any OOB activities due to just being up to BSC, and wanting to eat breakfast. PT Mcc Goals [employer] Goals PT Mcc Goals Time Frame: Sep 20, 2022 Roll Left & Right (QC): 6 Sit to Lying (QC): 6 Lying-Sitting on Side/Bed(QC): 6 Sit to Stand (QC): 6 Chair/Hhs-hl-Susdt Xfer(QC): 6 Toilet Transfer (QC): 6 Walk 10 feet (QC): 4 Walk 50ft with 2 Turns (QC): 4 PT Plan Problem List Problem List: Activity Tolerance, Functional Strength, Safety, Balance, Gait, Transfer, Bed Mobility, ROM Treatment/Plan Treatment Plan: Continue Plan of Care Treatment Plan: Bed Mobility, Education, Functional Activity Cece, Functional Strength, Gait, Safety, Therapeutic Exercise, Transfers Treatment Duration: Sep 20, 2022 Frequency: 6 times per week Estimated Hrs Per Day: .25 hour per day Patient and/or Family Agrees t: Yes Time Time In: 920 Time Out: 928 DATE: Sep 06, 2022 Total Billed Treatment Time: 8 Total Billed Treatment 1 visit FA (8') ANISH PEREZ PT Sep 06, 2022 10:49
[2022-09-06] MEDS: UMECLIDINIUM BROMIDE (INCRUSE ELLIPTA) 7'S IH SCH (15:23)
--- NOTE | 2022-09-06 15:30 | Cardiology Progress Note ---
Subjective Date Seen by Provider: Sep 06, 2022 Time Seen by Provider: 13:00 Subjective/Events-last exam No acute issues overnight. Pt continues to be stable. HRs 80-100s. Poor reserve. Denies cp currently. Awaiting LTAC placement. Objective-Cardiology Exam Last Set of Vital Signs Vital Signs 09/06/22 09/06/22 09/06/22 11:31 12:00 15:00 Temp 36.2 Pulse 98 Resp 19 B/P (MAP) 112/78 (87) Pulse Ox 92 O2 Delivery Vapotherm O2 Flow Rate 30.00 70.00 FiO2 70 I&O Intake and Output 09/06/22 00:00 Intake Total 1475 ml Output Total 1875 ml Balance -400 ml Intake Oral 1475 ml Output Urine Total 1875 ml General: Alert, Oriented X3, Cooperative, No Acute Distress HEENT: Atraumatic, PERRLA, EOMI Neck: Supple, No JVD Lungs: Other (Diminished air movement in bilateral lung mace. Faint rales noted. No rhochi or wheeezing.) Heart: Regular Rate, Normal S1, Normal S2, No Murmurs Abdomen: Normal Bowel Sounds, Soft Extremities: No Cyanosis, Normal Pulses Skin: No Rashes, No Significant Lesion Neuro: Normal Speech Psych/Mental Status: Mental Status NL, Mood NL Results Lab Laboratory Tests 09/06/22 03:05 A/P-Cardiology Assessment/Plan Assessment/Plan: SOB: unclear etiology - ? primary lung pathology (like ILD) vs end stage COPD vs pulmonary HTN (ECHO with PASP of xxx) - cont revatio - plan per hospitalist/ICU team ## Acute on chronic resp failure- Recent hospitalization at [facility] in [place], [place] d/t resp failure d/t pneumonia and Influenza A on 07-21-22 - transferred to [facility] in [place], [place] on 07-31-22 - admitted to [facility] Rehab in mid Aug 2022 - followed by Dr. Kaur of pulmonary services in [place], [place] - ? pulm HTN evaluation - deteriorating resp status requiring transfer to ICU on 09-02-22 - requiring Vapo-therm (Vapo-therm increased this morning 09-04-22)- recommendation at this time is for transfer to LTAC with pulm rehab services (pt in agreement) - chandu failure does not appear to be primarily of cardiac origin (normal LVEF, normal BNP). Advise transfer to tertiary care facility with pulmonology/pulm HTN services - Also, pt with +3L for hospitalization and CXR has some component of pulm edema; BNP wnl but suspect falsely low. Start bumex 1mg iv bid and monitor lytes, cr, bun (keep K > 4, Mg > 2) ## SSS. PAF with controlled vent response seen on tele of 08/23/22 (CHADSVASc score 6)- pt currently in nromal sinus rhythm vs sinus tachycardia - s/p pacemaker in 2019, followed by Dr Carpenter at [place], [place] - cont eliquis (recent hematuria episode; cont to monitor) ## HTN- SBP 100-140s systolic - cont current regimen ## HLD - cont zetia ## DM 2 - plan perhospitalist ## hx of CVA - cont ASA and statin ## COPD ## H/o tobaccoism - quit 30 yrs ago BLADE BABIN MD Sep 06, 2022 15:30
[2022-09-06] MEDS: BUMETANIDE 1 MG/4 ML (BUMEX) VIAL IV SCH (15:58)
[2022-09-06] MEDS: eZETimibe 10 MG (ZETIA) TABLET PO SCH (21:02)
[2022-09-07] MEDS: methylPREDNISolone 125 MG (Solu-MEDROL) VIAL IVP SCH ×2 (02:45→08:20)
[2022-09-07] MEDS: RT-ALBUTEROL SULF 2.5 MG/3 ML PRE-MIX VIAL INH SCH ×6 (02:53→22:19)
[2022-09-07] MEDS: RT-IPRATROPIUM (ATROVENT) 0.5MG/2.5ML AMP IH SCH ×6 (02:53→22:19)
[2022-09-07 02:58] LABS: BASOPHILS % (AUTO) 0 % (0-10); EOSINOPHILS % (AUTO) 0 % (0-10); HEMATOCRIT 40 % (40-54); HEMOGLOBIN 13.5 g/dL (13.3-17.7); LYMPHOCYTES # (AUTO) 0.5 10^3/uL (1.0-4.0); LYMPHOCYTES % (AUTO) 5 % (12-44); MEAN CORPUSCULAR HEMOGLOBIN 32 pg (25-34); MEAN CORPUSCULAR HGB CONC 34 g/dL (32-36); MEAN CORPUSCULAR VOLUME 96 fL (80-99); MEAN PLATELET VOLUME 9.7 fL (9.0-12.2); MONOCYTES # (AUTO) 0.5 10^3/uL (0.0-1.0); MONOCYTES % (AUTO) 5 % (0-12); NEUTROPHILS # (AUTO) 8.8 10^3/uL (1.8-7.8); NEUTROPHILS % (AUTO) 87 % (42-75); PLATELET COUNT 177 10^3/uL (130-400); WHITE BLOOD COUNT 10.1 10^3/uL (4.3-11.0)
[2022-09-07 03:08] LABS: ALBUMIN 3.1 GM/DL (3.2-4.5)
[2022-09-07 03:09] LABS: POTASSIUM 4.3 MMOL/L (3.6-5.0)
[2022-09-07 03:10] LABS: CALCIUM 8.6 MG/DL (8.5-10.1)
[2022-09-07 03:11] LABS: TOTAL PROTEIN 5.8 GM/DL (6.4-8.2)
[2022-09-07 03:13] LABS: BILIRUBIN,TOTAL 1.2 MG/DL (0.1-1.0)
[2022-09-07 03:14] LABS: PHOSPHORUS 4.2 MG/DL (2.3-4.7)
[2022-09-07 03:15] LABS: CREATININE SERUM 0.96 MG/DL (0.60-1.30)
[2022-09-07 03:18] LABS: MAGNESIUM 2.5 MG/DL (1.6-2.4)
[2022-09-07] MEDS: POTASSIUM CL 10MEQ/50ML IVPB 50 ML IV SCH (03:26)
[2022-09-07] MEDS: MAGNESIUM 1 GM/100 ML IVPB 100 ML IV SCH (03:27)
[2022-09-07] MEDS: KCL 20 MEQ TAB (K-DUR) PO SCH (03:27)
[2022-09-07] MEDS: inSUlin ASPART (NovoLOG) 1 UNIT/0.01 ML (CHARGE PER UNIT) SC SCH ×4 (05:53→20:43)
[2022-09-07] MEDS: PANTOPRAZOLE 40 MG (PROTONIX) TAB PO SCH (05:54)
[2022-09-07] MEDS: MULTIVIT W/MINERALS TAB (THERAGRAN M) PO SCH (05:54)
--- NOTE | 2022-09-07 07:39 | Progress Note ---
Subjective Date Seen by a Provider: Sep 07, 2022 Time Seen by a Provider: 11:00 Subjective/Events-last exam Patient remained stable Remains on Vapotherm 30 L at 70% Moving to cardiac stepdown Still high risk for intubation Review of Systems Pulmonary: Dyspnea Objective Exam Last Set of Vital Signs Vital Signs Date Time Temp Pulse Resp B/P (MAP) Pulse Ox O2 Delivery O2 Flow Rate FiO2 09/07/22 06:00 91 16 123/78 (93) 96 Vapotherm 30.00 70.00 09/07/22 03:45 50 09/07/22 03:40 36.2 Capillary Refill : Less Than 3 Seconds I&O Intake and Output 09/07/22 00:00 Intake Total 1575 ml Output Total 2745 ml Balance -1170 ml Intake Oral 1575 ml Output Urine Total 2745 ml # Bowel Movements 3 General: Alert, Oriented X3, Cooperative, No Acute Distress Lungs: Clear to Auscultation, Other (Diminished breath sounds in the bases) Psych/Mental Status: Mental Status NL, Mood NL Results Lab Laboratory Tests 09/06/22 10:21: Glucometer 262H 09/06/22 15:54: Glucometer 217H 09/06/22 20:18: Glucometer 247H 09/07/22 02:49: White Blood Count 10.1, Red Blood Count 4.22L, Hemoglobin 13.5, Hematocrit 40, Mean Corpuscular Volume 96, Mean Corpuscular Hemoglobin 32, Mean Corpuscular Hemoglobin Concent 34, Red Cell Distribution Width 15.2H, Platelet Count 177, Mean Platelet Volume 9.7, Immature Granulocyte % (Auto) 2, Neutrophils (%) (Auto) 87H, Lymphocytes (%) (Auto) 5L, Monocytes (%) (Auto) 5, Eosinophils (%) (Auto) 0, Basophils (%) (Auto) 0, Neutrophils # (Auto) 8.8H, Lymphocytes # (Auto) 0.5L, Monocytes # (Auto) 0.5, Eosinophils # (Auto) 0.0, Basophils # (Auto) 0.0, Immature Granulocyte # (Auto) 0.2H, Sodium Level 139, Potassium Level 4.3, Chloride Level 99, Carbon Dioxide Level 30, Anion Gap 10, Blood Urea Nitrogen 29H, Creatinine 0.96, Estimat Glomerular Filtration Rate 82, BUN /Creatinine Ratio 30, Glucose Level 232H, Calcium Level 8.6, Corrected Calcium 9.3, Phosphorus Level 4.2, Magnesium Level 2.5H, Total Bilirubin 1.2H, Aspartate Amino Transf (AST/SGOT) 26, Alanine Aminotransferase (ALT/SGPT) 98H, Alkaline Phosphatase 57, Total Protein 5.8L, Albumin 3.1L 09/07/22 05:36: Glucometer 225H Assessment/Plan Assessment/Plan Assess & Plan/Chief Complaint Assessment: Acute on chronic respiratory failure Pulmonary fibrosis CVA 10/2016 COPD CARLA unable to tolerate CPAP long-term Atrial fibrillation Recent UTI Pseudomonas Plan: Prognosis poor Patient and daughter in denial about prognosis Very difficult situation Clinical Quality Measures Admission Status Admission Dx Acute on chronic respiratory failure requiring transfer from [facility] to [facility] ICU on Vapotherm and BiPAP at high risk for intubation Atrial fibrillation (Follows with Dr. Carpenter) - AV block s/p pacemaker placement; rate and rhythm controlled. 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) - Still has position deficits in leg, motor and strength almost back to normal - On clopidegril and baby aspirin - Continue statin - COPD (Follows with [facility]) - Recent exacerbation - on 2L baseline, currently requiring more - continue incruse ellipta (LAMA) - DuoNebs PRN Pulmonary Fibrosis (diagnosed 3 months ago) - on sildenafil 20 - As above for COPD treatment PRN Urinary incontinence - Hodgson previous - Not currently taking reductase inhibitors/alpha blockers - Bladder scan for post void residual Hypertension - Hold home medication if normotensive T2DM - Monitor blood sugar - ISS as needed, adjust with exercise Hx of sleep apnea - Does not tolerate CPAP, uses 2L O2 NC at night - Baseline 2L Hematuria on 08/24/2022 -Hold anticoagulation and check urine UTI Pseudomonas Plan: Consult Cardiology Home meds O2 Monitor closely 08/22/2022: Patient doing well 08/23/2022: Eliquis 08/24/2022: Hold anticoagulation Check UA 08/25/2022: Change abx to Cipro and await UCx 08/26/2022: F/U on UCx Monitor closely 08/27/2022: Complete abx Hold OAC until UTI treated 08/28/2022: Monitor HR Appreciated Dr Barnes 08/29/2022: Restarted OAC yesterday Complete abx for UTI 08/30/2022: Complete abx 08/31/2022: Complete antibiotics today 09/01/2022: IV steroids DAYANA GABRIEL DO Sep 07, 2022 07:39
[2022-09-07] MEDS: SENNA W/DOCUSATE (SENOKOT S) TABLET PO SCH ×2 (08:19→21:01)
[2022-09-07] MEDS: SILDENAFIL 20 MG (REVATIO) TAB PO SCH (08:19)
[2022-09-07] MEDS: SENNOSIDES 8.6 MG (SENOKOT) TAB PO SCH ×2 (08:19→21:01)
[2022-09-07] MEDS: BUMETANIDE 1 MG/4 ML (BUMEX) VIAL IV SCH ×2 (08:19→08:42)
[2022-09-07] MEDS: ASPIRIN 81 MG CHEW (CHILDREN'S ASA) PO SCH (08:19)
[2022-09-07] MEDS: meTOprolol TARTRATE 25 MG (LOPRESSOR) TABLET PO SCH (08:19)
[2022-09-07] MEDS: APIXABAN 5 MG (ELIQUIS) TABLET PO SCH ×2 (08:19→20:42)
[2022-09-07] MEDS: polyethylene glycoL POWDER 17 GM (MIRALAX) PACK PO SCH ×2 (08:20→21:00)
[2022-09-07] MEDS: NEO/POLY/BAC (NEOSPORIN) OINT 15 GM TUBE TOP SCH ×2 (08:20→21:01)
--- NOTE | 2022-09-07 09:08 | Tele-ICU Progress Note ---
Subjective Date Seen by a Provider: Sep 07, 2022 Subjective/Events-last exam This virtual visit was conducted using real time audio/video. Thank you for asking us to see this patient for respiratory insufficiency due to AECOPD/IPF. Recent events: Admit 09/01, transfer to ICU 09/02 with increasing O2 needs, afib. No new events overnight, slept well. PE: Appears comfortable. VSS. HR 80-90, improved. O2 sat 94% on VT 30/70%. HEENT: No obvious masses, adenopathy or JVD. Chest: clear to auscultation, diminished. CV: RRR S1 S2 No murmur or added sounds. Abd: Non-tender. Bowel sounds Y. : Unremarkable. Hodgson N. KOSHER SEALER/psychiatric: Grossly intact. No obvious focal findings. Extremities: No edema. Capillary refill < 3 seconds. Skin: unremarkable. Results: Elevated BUN 29, BG 225. AB.42/52/53 on 50%. CXR: Poor quality, B interstitial changes, L > R. PPM present. Available chart/ vitals / labs / images reviewed. Video assessment done using teleICU camera, rest of exam as per RN. A/P: Respiratory insufficiency: Continue present management with BiP/VT, incruse, duonebs, Sildenafil. Possible LTAC transfer. Monitor for increasing oxygenation needs and/or need for intubation. Critical Care: critically ill patient. Cont. Dilt., statin, plavix, eliq., ASA, PPI, Zetia, metop., SSI, bumex. Discussed with RN Shelly. Asked RN to reach out to eICU if any questions or concerns later. Time spent with patient/coordination of care with other health professionals (mins): 20. Sepsis Event Evaluation Height, Weight, BMI Height: '" Weight: lbs. oz. kg; 30.84 BMI Method: Exam Exam Patient acknowledged, consented, and participated in this virtual visit which was conducted using real time audio/video Vital Signs Date Time Temp Pulse Resp B/P (MAP) Pulse Ox O2 Delivery O2 Flow Rate FiO2 09/07/22 09:00 87 29 106/74 (83) 94 Vapotherm 30.00 70.00 09/07/22 08:00 91 17 128/90 (96) 97 Vapotherm 30.00 70.00 09/07/22 07:53 36.3 09/07/22 07:00 82 17 126/87 (98) 98 Vapotherm 30.00 70.00 09/07/22 07:00 80 09/07/22 06:00 91 16 123/78 (93) 96 Vapotherm 30.00 70.00 09/07/22 05:57 Vapotherm 30.00 70.00 09/07/22 05:52 Vapotherm 30.00 60.00 09/07/22 05:00 82 13 106/71 (83) 96 NIV Bilevel 50.00 09/07/22 04:00 87 13 114/69 (84) 96 NIV Bilevel 50.00 09/07/22 03:45 96 NIV Bilevel 50 09/07/22 03:40 36.2 09/07/22 03:00 86 14 100/70 (80) 96 NIV Bilevel 50.00 09/07/22 02:53 84 20 96 50.00 09/07/22 02:00 84 14 100/65 (77) 96 NIV Bilevel 50.00 09/07/22 01:00 88 14 92/63 (73) 96 NIV Bilevel 50.00 09/07/22 01:00 86 09/07/22 00:00 92 16 97/67 (77) 96 NIV Bilevel 50.00 09/06/22 23:43 36.8 09/06/22 23:30 95 NIV Bilevel 50 09/06/22 23:00 91 13 91/62 (72) 95 NIV Bilevel 50.00 09/06/22 22:02 98 24 96 50.00 09/06/22 22:00 90 16 113/60 (77) 96 NIV Bilevel 50.00 09/06/22 21:15 NIV Bilevel 50.00 09/06/22 21:00 90 20 99/67 (78) 95 Vapotherm 30.00 60.00 09/06/22 20:00 102 20 107/69 (82) 94 Vapotherm 30.00 60.00 09/06/22 19:30 95 Vapotherm 30.00 60 09/06/22 19:00 101 09/06/22 19:00 37.0 103 24 98/79 (85) 95 Vapotherm 30.00 60.00 09/06/22 18:21 92 Vapotherm 30.00 60 09/06/22 18:00 103 21 115/88 (96) 91 Vapotherm 30.00 70.00 09/06/22 17:00 102 27 111/81 (90) 93 Vapotherm 30.00 70.00 09/06/22 16:00 98 13 113/67 (80) 91 Vapotherm 30.00 70.00 09/06/22 16:00 36.6 09/06/22 15:29 94 Vapotherm 30.00 70 09/06/22 15:23 93 Vapotherm 30.00 60 09/06/22 15:00 98 19 112/78 (87) 92 Vapotherm 30.00 70.00 09/06/22 14:00 101 28 104/70 (76) 94 Vapotherm 30.00 70.00 09/06/22 13:00 102 09/06/22 13:00 101 22 112/77 (91) 93 Vapotherm 30.00 70.00 09/06/22 12:00 108 35 130/88 (103) 94 Vapotherm 30.00 70.00 09/06/22 12:00 36.2 09/06/22 11:31 94 Vapotherm 30.00 70 09/06/22 11:00 93 19 91 Vapotherm 30.00 70.00 09/06/22 10:38 95 Vapotherm 30.00 60 09/06/22 10:00 96 19 94 Vapotherm 30.00 70.00 I & O 09/07/22 07:00 Intake Total 1550 ml Output Total 2520 ml Balance -970 ml Height & Weight Height: '" Weight: lbs. oz. kg; 30.84 BMI Method: General Appearance: No Apparent Distress HEENT: PERRL/EOMI; No Scleral Icterus (L), No Scleral Icterus (R) Neck: Full Range of Motion, Supple; No Lymphadenopathy (L), No Lymphadenopathy (R) Respiratory: Chest Non Tender, No Accessory Muscle Use, Crackles, Decreased Breath Sounds Cardiovascular: No Regular Rate, Rhythm; No JVD, No Murmur, Normal Peripheral Pulses, Tachycardia Capillary Refill: Less Than 3 Seconds Peripheral Pulses: 2+ Radial Pulses (R), 2+ Radial Pulses (L) Extremity: Non Tender, No Calf Tenderness, No Pedal Edema Neurologic/Psychiatric: Alert, Oriented x3 Skin: Warm/Dry Lymphatic: No Adenopathy Results Lab Laboratory Tests 09/06/22 03:05 09/07/22 02:49 Assessment/Plan Assessment/Plan See free text. Critical Care: Critically Ill Patient BRUCE CHEUNG MD Sep 07, 2022 09:08
[2022-09-07] MEDS: UMECLIDINIUM BROMIDE (INCRUSE ELLIPTA) 7'S IH SCH (09:19)
--- NOTE | 2022-09-07 09:24 | Diagnostic Imaging Report ---
INDICATION: Dyspnea. COMPARISON: 09/06/2022. FINDINGS: There is cardiomegaly. There is some bilateral airspace disease. There is no pleural effusion or pneumothorax. A pacemaker overlies the left hemithorax. The mediastinum is unremarkable. IMPRESSION: Cardiomegaly and some diffuse bilateral airspace disease. Some underlying central pulmonary venous congestion cannot be excluded. Recommend clinical correlation. Dictated by: Dictated on workstation # [id number]
--- NOTE | 2022-09-07 10:40 | Cardiology Progress Note ---
Subjective Date Seen by Provider: Sep 07, 2022 Time Seen by Provider: 10:15 Subjective/Events-last exam No acute events overnight. Pt stable. HR 80-100s. BP 100-120s systolic. Received bumex iv yesterday and tolerated well. Objective-Cardiology Exam Last Set of Vital Signs Vital Signs 09/07/22 09/07/22 09/07/22 03:45 07:53 10:00 Temp 36.3 Pulse 86 Resp 16 B/P (MAP) 94/61 (71) Pulse Ox 96 O2 Delivery Vapotherm O2 Flow Rate 30.00 70.00 FiO2 50 I&O Intake and Output 09/07/22 00:00 Intake Total 1575 ml Output Total 2745 ml Balance -1170 ml Intake Oral 1575 ml Output Urine Total 2745 ml # Bowel Movements 3 General: Alert, Oriented X3, Cooperative, No Acute Distress HEENT: Atraumatic, PERRLA, EOMI Neck: Supple, No JVD Lungs: Other (Diminished air movement in bilateral lung mace. Faint rales noted. No rhochi or wheeezing.) Heart: Regular Rate, Normal S1, Normal S2, No Murmurs Abdomen: Normal Bowel Sounds, Soft Extremities: No Cyanosis, Normal Pulses Skin: No Rashes, No Significant Lesion Neuro: Normal Speech Psych/Mental Status: Mental Status NL, Mood NL Results Lab Laboratory Tests 09/07/22 02:49 A/P-Cardiology Assessment/Plan Assessment/Plan: SOB: unclear etiology - ? primary lung pathology (like ILD) vs end stage COPD vs pulmonary HTN (ECHO with PASP of xxx) - cont revatio - plan per hospitalist/ICU team ## Acute on chronic resp failure- Recent hospitalization at [facility] in [place], [place] d/t resp failure d/t pneumonia and Influenza A on 07-21-22 - transferred to [facility] in [place], [place] on 07-31-22 - admitted to [facility] Rehab in mid Aug 2022 - followed by Dr. Kaur of pulmonary services in [place], [place] - ? pulm HTN evaluation - deteriorating resp status requiring transfer to ICU on 09-02-22 - requiring Vapo-therm (Vapo-therm increased this morning 09-04-22)- recommendation at this time is for transfer to LTAC with pulm rehab services (pt in agreement) - chandu failure does not appear to be primarily of cardiac origin (normal LVEF, normal BNP). Advise transfer to tertiary care facility with pulmonology/pulm HTN services - Also, pt with +3L for hospitalization and CXR has some component of pulm edema; BNP wnl but suspect falsely low. Transitioin bumex iv to Bumex 1mg po QD and monitor lytes, cr, bun (keep K > 4, Mg > 2) ## SSS. PAF with controlled vent response seen on tele of 08/23/22 (CHADSVASc score 6)- pt currently in nromal sinus rhythm vs sinus tachycardia - s/[place] pacemaker [place] 2019, [place] cont eliquis (recent hematuria episode; cont to monitor) - cont Dilt CD 240 QD; and transition Metoprolol tartate to succinate (Toprol XL 75mg po QD) ## HTN- SBP 100-120s systolic - cont current regimen ## HLD - cont zetia ## DM 2 - plan per hospitalist ## hx of CVA - cont ASA and statin ## COPD ## H/o tobaccoism - quit 30 yrs ago BLADE BABIN MD Sep 07, 2022 10:40
[2022-09-07] MEDS: meTOproloL SUCCINATE 50 MG (TOPROL XL) TAB PO SCH (11:13)
[2022-09-07] MEDS: methylPREDNISolone 40 MG/ML (Solu-MEDROL) VIAL IVP SCH (20:42)
[2022-09-07] MEDS: eZETimibe 10 MG (ZETIA) TABLET PO SCH (20:42)
[2022-09-07 21:20] VITALS: BP 115/71
[2022-09-07 22:19] VITALS: BP 117/67
[2022-09-07 23:21] VITALS: BP 117/67
[2022-09-08 02:33] VITALS: BP 113/84
[2022-09-08] MEDS: RT-IPRATROPIUM (ATROVENT) 0.5MG/2.5ML AMP IH SCH ×6 (02:33→22:09)
[2022-09-08] MEDS: RT-ALBUTEROL SULF 2.5 MG/3 ML PRE-MIX VIAL INH SCH ×6 (02:33→22:08)
[2022-09-08 04:48] LABS: BASOPHILS % (AUTO) 0 % (0-10); EOSINOPHILS % (AUTO) 0 % (0-10); HEMATOCRIT 40 % (40-54); HEMOGLOBIN 13.6 g/dL (13.3-17.7); LYMPHOCYTES # (AUTO) 0.4 10^3/uL (1.0-4.0); LYMPHOCYTES % (AUTO) 4 % (12-44); MEAN CORPUSCULAR HEMOGLOBIN 32 pg (25-34); MEAN CORPUSCULAR HGB CONC 34 g/dL (32-36); MEAN CORPUSCULAR VOLUME 95 fL (80-99); MONOCYTES # (AUTO) 0.7 10^3/uL (0.0-1.0); MONOCYTES % (AUTO) 8 % (0-12); NEUTROPHILS # (AUTO) 7.6 10^3/uL (1.8-7.8); NEUTROPHILS % (AUTO) 83 % (42-75); PLATELET COUNT 185 10^3/uL (130-400); WHITE BLOOD COUNT 9.2 10^3/uL (4.3-11.0)
[2022-09-08 05:05] LABS: BILIRUBIN,TOTAL 1.1 MG/DL (0.1-1.0); CALCIUM 8.6 MG/DL (8.5-10.1); CREATININE SERUM 1.15 MG/DL (0.60-1.30); MAGNESIUM 2.4 MG/DL (1.6-2.4); POTASSIUM 4.3 MMOL/L (3.6-5.0); TOTAL PROTEIN 5.8 GM/DL (6.4-8.2)
[2022-09-08] MEDS: inSUlin ASPART (NovoLOG) 1 UNIT/0.01 ML (CHARGE PER UNIT) SC SCH ×4 (05:50→20:47)
[2022-09-08] MEDS: PANTOPRAZOLE 40 MG (PROTONIX) TAB PO SCH (05:50)
[2022-09-08] MEDS: MULTIVIT W/MINERALS TAB (THERAGRAN M) PO SCH (05:50)
[2022-09-08 06:10] LABS: LYMPHOCYTES % (MANUAL) 6 %; MONOCYTES % (MANUAL) 8 %; NEUTROPHILS % (MANUAL) 84 %; PROLYMPHOCYTE % 2 %; RBC MORPH NORMAL
--- NOTE | 2022-09-08 07:57 | Diagnostic Imaging Report ---
EXAMINATION: Chest 1 view HISTORY: Dyspnea COMPARISON: 09/07/2022. FINDINGS: Stable enlargement of the cardiac silhouette. Left-sided cardiac device is unchanged. Persistent likely small left pleural effusion. There are low lung volumes with interstitial opacities throughout both lungs. No pneumothorax. Degenerative changes of the thoracic spine. Osseous structures are otherwise intact. IMPRESSION: 1. Stable cardiomegaly and low lung volumes with interstitial opacities throughout both lungs. Dictated by: Dictated on workstation # [id number]
--- NOTE | 2022-09-08 08:47 | Occupational Ther Daily Note ---
OT Current Status-Daily Note Subjective Up in chair, just finished breakfast, voiced concern of being interrupted for meals and does not want to be disturbed when he eats Mental Status/Objective Patient Orientation: Situation Attachments: IV, Oxygen Remains on Vapotherm 30 L at 70%, plan to move to cardiac step down unit ADL-Treatment Therapy Code Descriptions/Definitions Functional [place] Measure: 0=Not Assessed/NA 4=Minimal Assistance 1=Total Assistance 5=Supervision or Setup 2=Maximal Assistance 6=Modified [place] 3=Moderate Assistance 7=Complete IndependenceSCALE: Activities may be completed with or without assistive devices. 3-Zelivixfcr-zduishb completes the activity by him/herself with no assistance from a helper. 5-Set-up or Clean-up Assistance-helper sets up or cleans up; patient completes activity. [place] assists only prior to or following the activity. 4-Supervision or Touching Assistance-helper provides verbal cues and/or touching/steadying and/or contact guard assistance as patient completes activity. Assistance may be provided throughout the activity or intermittently. 3-Partial/Moderate Assistance-helper does LESS THAN HALF the effort. [place] lifts, holds or supports trunk or limbs, but provides less than half the effort. 2-Substantial/Maximal Assistance-helper does MORE THAN HALF the effort. [place] lifts or holds trunk or limbs and provides more than half the effort. 6-Xvmyisorj-kuplls does ALL the effort. Patient does none of the effort to complete the activity. Or, the assistance of 2 or more helpers is required for the patient to complete the activity. If activity was not attempted, code reason: 7-Patient Refused. 9-Not Applicable-not attempted and the patient did not perform the activity before the current illness, exacerbation or injury. 10-Not Attempted due to Environmental Limitations-(lack of equipment, weather restraints, etc.). 88-Not Attempted due to Medical Conditions or Safety Concerns. Eating (QC): 5 (fluid restriction nd requires extra time to eat d/t SOA) Oral Hygiene (QC): 5 Shower/Bathe Self (QC): 7 (declines bathing at this time, OT recommended sponge/clothe bathing) Upper Body Dressing (QC): 4 Lower Body Dressing (QC): 3 On/Off Footwear: 3 Toileting Hygiene (QC): 7 (reports no need at this time) Toilet Transfer (QC): 7 (reports no need at this time) Other Treatment BUE isometric exercises, education for PLB, energy conservation techniques, edema control and circulation exercises Education OT Patient Education: Correct positioning, Energy conservation, Exercise program, Modified ADL techniques, Progress toward Goal/Update tx plan, Purpose of tx/functional activities, Reviewed precautions, Rehab process, Safety issues, Transfer techniques, Use of adapted equipment (patient reports no news on when he will be leaving and going to LTAC in [facility]) Teaching Recipient: Patient Response to Teaching: Verbalize Understanding, Return Demonstration, Reinfor cement Needed OT Alf Goals Alf Goals Eating (QC): 6 Oral Hygiene (QC): 6 Toileting Hygiene (QC): 6 Shower/Bathe Self (QC): 6 Upper Body Dressing (QC): 6 Lower Body Dressing (QC): 6 On/Off Footwear (QC): 6 1=Demonstrate adherence to instructed precautions during ADL tasks. 2=Patient will verbalize/demonstrate understanding of assistive devices/modifications for ADL. 3=Patient will improve strength/tolerance for activity to enable patient to perform ADL's. OT Education/Plan Problem List/Assessment Assessment: Decreased Activ Tolerance, Decreased UE Strength, Impaired Funct Balance, Impaired Self-Care Skills Discharge Recommendations Plan/Recommendations: Continue POC Therapy Discharge Recommendati: Post Acute OT Treatment Plan/Plan of Care Treatment,Training & Education: Yes Patient would benefit from OT for education, treatment and training to promote independence in ADL's, mobility, safety and/or upper extremity function for ADL's. Plan of Care: ADL Retraining, Cognitive Retraining, Concurrent Therapy, Functional Mobility, Group Exercise/Act as Ind Comment Patient remains in chair waiting for Dr. Juan griffith in reach, all needs met Treatment Duration: Sep 13, 2022 Frequency: 3 times per week (3-5 times per week) Estimated Hrs Per Day: .25 hour per day Agreement: Yes Rehab Potential: Guarded Time Start Time: 08:22 Stop Time: 08:51 DATE: Sep 08, 2022 Total Time Billed (hr/min): 29 Billed Treatment Time 1 visit EX 2 29 min IRWIN SPEAR OT Sep 08, 2022 08:47
[2022-09-08] MEDS: APIXABAN 5 MG (ELIQUIS) TABLET PO SCH ×2 (09:19→20:48)
[2022-09-08] MEDS: meTOproloL SUCCINATE 50 MG (TOPROL XL) TAB PO SCH (09:19)
[2022-09-08] MEDS: SENNA W/DOCUSATE (SENOKOT S) TABLET PO SCH ×2 (09:20→20:40)
[2022-09-08] MEDS: SILDENAFIL 20 MG (REVATIO) TAB PO SCH (09:20)
[2022-09-08] MEDS: ASPIRIN 81 MG CHEW (CHILDREN'S ASA) PO SCH (09:20)
[2022-09-08] MEDS: SENNOSIDES 8.6 MG (SENOKOT) TAB PO SCH ×2 (09:20→20:41)
[2022-09-08] MEDS: methylPREDNISolone 40 MG/ML (Solu-MEDROL) VIAL IVP SCH ×2 (09:20→20:48)
[2022-09-08] MEDS: BUMETANIDE 1 MG (BUMEX) TAB PO SCH (09:20)
[2022-09-08] MEDS: polyethylene glycoL POWDER 17 GM (MIRALAX) PACK PO SCH ×2 (09:20→20:40)
[2022-09-08] MEDS: NEO/POLY/BAC (NEOSPORIN) OINT 15 GM TUBE TOP SCH ×2 (09:21→20:59)
--- NOTE | 2022-09-08 09:39 | Physical Therapy Daily Note ---
PT Daily Note-Current Subjective Patient agrees to PT. Pain Section J - Health Conditions 1. Rarely or not at all 2. Occasionally 3. Frequently 4. Almost constantly 8. Unable to answer Pain Effect on Sleep: 1 Pain Interference with Therapy: 1 Pain Interference w/Day-to-Day: 1 Mental Status Patient Orientation: Normal For Age Attachments: Oxygen (vapotherm 30L/65%) Transfers SCALE: Activities may be completed with or without assistive devices. 2-Iblrduafyb-wvqelbe completes the activity by him/herself with no assistance from a helper. 5-Set-up or Clean-up Assistance-helper sets up or cleans up; patient completes activity. [place] assists only prior to or following the activity. 4-Supervision or Touching Assistance-helper provides verbal cues and/or touching/steadying and/or contact guard assistance as patient completes activity. Assistance may be provided throughout the activity or intermittently. 3-Partial/Moderate Assistance-helper does LESS THAN HALF the effort. [place] lifts, holds or supports trunk or limbs, but provides less than half the effort. 2-Substantial/Maximal Assistance-helper does MORE THAN HALF the effort. [place] lifts or holds trunk or limbs and provides more than half the effort. 4-Owodbycot-gfmetg does ALL the effort. Patient does none of the effort to complete the activity. Or, the assistance of 2 or more helpers is required for the patient to complete the activity. If activity was not attempted, code reason: 7-Patient Refused. 9-Not Applicable-not attempted and the patient did not perform the activity before the current illness, exacerbation or injury. 10-Not Attempted due to Environmental Limitations-(lack of equipment, weather restraints, etc.). 88-Not Attempted due to Medical Conditions or Safety Concerns. Lying to Sitting/Side of Bed(Q: 4 Sit to Stand (QC): 4 Chair/Puv-hh-Ricff Xfer(QC): 4 Gait Training Distance: steps Gait Assistive Device: FWW Exercises Seated Therapy Exercises: Long arc quads, Hip flexion Seated Reps: 15 inventory technician in to increase Vapotherm to 85% due to decreased SAO2 to 80% with minimal activity. Patient requires time and pursed lip breathing to recover. Patient up in recliner with Vapotherm settings back to 30L/65% per RN. PT Pipe Coverer Goals Assisted Goals PT Pipe Coverer Goals Time Frame: Sep 20, 2022 Roll Left & Right (QC): 6 Sit to Lying (QC): 6 Lying-Sitting on Side/Bed(QC): 6 Sit to Stand (QC): 6 Chair/Jpu-gc-Bxzto Xfer(QC): 6 Toilet Transfer (QC): 6 Walk 10 feet (QC): 4 Walk 50ft with 2 Turns (QC): 4 PT Plan Treatment/Plan Treatment Plan: Continue Plan of Care Treatment Plan: Bed Mobility, Education, Functional Activity Cece, Functional Strength, Gait, Safety, Therapeutic Exercise, Transfers Treatment Duration: Sep 20, 2022 Frequency: 6 times per week Estimated Hrs Per Day: .25 hour per day Patient and/or Family Agrees t: Yes Time Time In: 720 Time Out: 743 DATE: Sep 08, 2022 Total Billed Treatment Time: 23 Total Billed Treatment 1 visit FA x 2 23 min ISAIAH RUIZ PT Sep 08, 2022 09:39
[2022-09-08] MEDS: UMECLIDINIUM BROMIDE (INCRUSE ELLIPTA) 7'S IH SCH (11:10)
--- NOTE | 2022-09-08 12:16 | Progress Note - Cardiology ---
Cardiology SOAP Progress Note Subjective: Shortness of breath as before No cp or palp or syncope No n/v/d No focal weakness Gen weakness and malaise are present Objective: I&O/Vital Signs 09/08/22 09/08/22 09/08/22 09/08/22 01:00 02:33 02:37 04:00 Temp 36.8 Pulse 94 100 Resp 24 Pulse Ox 94 O2 Delivery NIV Bilevel O2 Flow Rate 50.00 FiO2 50 09/08/22 09/08/22 09/08/22 09/08/22 04:00 04:00 06:15 07:00 Pulse 89 93 Resp 16 B/P (MAP) 110/79 (89) Pulse Ox 95 97 O2 Delivery NIV Bilevel NIV Bilevel Vapotherm O2 Flow Rate 50.00 30.00 65.00 FiO2 50 09/08/22 09/08/22 09/08/22 09/08/22 07:00 07:06 08:00 08:40 Temp 36.1 Pulse 92 Resp 25 B/P (MAP) 113/94 (100) Pulse Ox 96 97 O2 Delivery Vapotherm Vapotherm Vapotherm O2 Flow Rate 30.00 30.00 65.00 FiO2 65 60 09/08/22 09/08/22 09/08/22 09/08/22 09:40 10:37 11:00 11:10 Pulse 104 123 Resp 12 B/P (MAP) 138/98 (111) Pulse Ox 91 90 94 O2 Delivery Vapotherm Vapotherm Vapotherm O2 Flow Rate 30.00 30.00 30.00 55.00 55.00 FiO2 65 09/08/22 00:00 Intake Total 515 ml Output Total 750 ml Balance -235 ml Constitutional: AAO x 3, well-developed, well-nourished Respiratory: No accessory muscle use, No respiratory distress; chest expansion is symmetric, chest is bilaterally symmetric, other (diminished throughout; dyspneic with simple conversation) Cardiovascular: regular rate-rhythm, tachycardia, systolic murmur (soft ELDER at card base) Gastrointestional: No tender; soft, audible bowel sounds Extremities: No significant edema Neurologic/Psychiatric: oriented x 3, other (moves all limbs equally) Skin: normal color, warm/dry Results/Procedures: Labs Laboratory Tests 09/07/22 15:27: Glucometer 263H 09/07/22 20:35: Glucometer 292H 09/08/22 04:27: White Blood Count 9.2, Red Blood Count 4.26L, Hemoglobin 13.6, Hematocrit 40, Mean Corpuscular Volume 95, Mean Corpuscular Hemoglobin 32, Mean Corpuscular Hemoglobin Concent 34, Red Cell Distribution Width 14.6H, Platelet Count 185, Mean Platelet Volume 10.0, Immature Granulocyte % (Auto) 5, Neutrophils (%) (Auto) 83H, Lymphocytes (%) (Auto) 4L, Monocytes (%) (Auto) 8, Eosinophils (%) (Auto) 0, Basophils (%) (Auto) 0, Neutrophils # (Auto) 7.6, Lymphocytes # (Auto) 0.4L, Monocytes # (Auto) 0.7, Eosinophils # (Auto) 0.0, Basophils # (Auto) 0.0, Immature Granulocyte # (Auto) 0.4H, Neutrophils % (Manual) 84, Lymphocytes % (Manual) 6, Prolymphocyte % 2, Monocytes % (Manual) 8, Blood Morphology Comment NORMAL, Sodium Level 138, Potassium Level 4.3, Chloride Level 98, Carbon Dioxide Level 28, Anion Gap 12, Blood Urea Nitrogen 35H, Creatinine 1.15, Estimat Gl omerular Filtration Rate 66, BUN/Creatinine Ratio 30, Glucose Level 273H, Calci um Level 8.6, Corrected Calcium 9.4, Magnesium Level 2.4, Total Bilirubin 1.1H, Aspartate Amino Transf (AST/SGOT) 20, Alanine Aminotransferase (ALT/SGPT) 70H, Alkaline Phosphatase 53, Total Protein 5.8L, Albumin 3.0L 09/08/22 11:50: Glucometer 383H Laboratory Tests 09/07/22 02:49 09/08/22 04:27 A/P: Assessment: Interstitial lung disease vs other pulmonary causes of pulmonary hypertension - management per eICU and Medical services Acute on chronic resp failure - Recent hospitalization at [facility] in [place], [place] d/t resp failure d/t pneumonia and Influenza A on 07-21-22 - transferred to [facility] in [place], [place] on 07-31-22 - admitted to [facility] in mid Aug 2022 - Pulmonary HTN of undetermined etiology - on sildenafil and chronic oxygen at home (prior to admission) - followed by Dr. Kaur of pulmonary services in [place], [place] - deteriorating resp status requiring transfer to ICU on 09-02-22 SSS. PAF with controlled vent response seen on tele of 08/23/22 (CHADSVASc score 6) - s/p pacemaker in 2019, followed by Dr Carpenter at [facility] - had been on apixaban for stroke prophylaxis since 08/23/22 - stopped (by medical services) d/t episode of hematuria - resumed on 08-28-22 - Echocardiogram of 09-02-22 showed LVEF 65-70%. Trivial AoR H/o HTN H/o HLD CARLA DM 2 H/o previous CVA - Alexa 2016 - treated at [place] - per pt source undetermined - no residual COPD H/o tobaccoism - quit 30 yrs ago Plan: * Pulm htn and ac on ch resp failure management is with the Med and ICU svce * Continue BB and dilt because of a h/o PAF * Resp failure does not appear to be primarily of cardiac origin (normal LVEF, normal BNP). Advise transfer to tertiary care facility with pulmonology services * Monitor labs EDUARDO LANE MD FACP FACC CCDS Sep 08, 2022 12:16
--- NOTE | 2022-09-08 12:45 | Progress Note ---
RAYGOZAJulissaHARJINDER LAURENT 09/08/22 1245: Subjective Date Seen by a Provider: Sep 08, 2022 Time Seen by a Provider: 08:00 Subjective/Events-last exam Upon follow up for acute on chronic respiratory, Gulshan is sitting upright in his recliner with vapotherm in place (30% O2 flow and 65% FiO2), eating breakfast. He states that his appetite is intact, and his last bowel movement was on Thursday, 09/06. He denies having any pain today, and states that he had difficulty sleeping last night. He explained that the BiPAP was uncomfortable, and was only able to sleep for about half an hour. He states that he continues to use his IS. Repeat CXR demonstrated low lung volumes with interstitial opa cities throughout, and stable cardiomegaly. Gulshan is pleasant and conversational today. Review of Systems General: No Chills, No Night Sweats HEENT: No Head Aches, No Visual Changes Pulmonary: Dyspnea; No Cough Cardiovascular: No: Chest Pain, Palpitations Gastrointestinal: No: Nausea, Vomiting, Abdominal Pain Genitourinary: No Dysuria, No Frequency Musculoskeletal: No: other, neck pain Neurological: Weakness; No: Numbness Focused Exam Respiratory: Chest Non Tender, No Accessory Muscle Use, No Respiratory Distress, Decreased Breath Sounds Cardiovascular: No Gallop, No JVD, No Murmur, Normal Peripheral Pulses, Tachycardia Capillary Refill: Less Than 3 Seconds Peripheral Pulses: 2+ Radial Pulses (R), 2+ Radial Pulses (L) Skin: normal color, warm/dry Objective Exam Last Set of Vital Signs Vital Signs Date Time Temp Pulse Resp B/P (MAP) Pulse Ox O2 Delivery O2 Flow Rate FiO2 09/08/22 12:00 36.4 107 16 119/73 (88) 92 Vapotherm 30.00 55.00 09/08/22 11:10 65 Capillary Refill : Less Than 3 Seconds I&O Intake and Output 09/08/22 00:00 Intake Total 1265 ml Output Total 2200 ml Balance -935 ml Intake Oral 1265 ml Output Urine Total 2200 ml General: Alert, Oriented X3, Cooperative HEENT: Atraumatic, PERRLA Neck: Supple, No JVD Lungs: Other (Decreased breath sounds) Heart: Other (Tachycardic) Abdomen: Normal Bowel Sounds, Soft Extremities: No Cyanosis, Normal Pulses Neuro: Normal Speech Psych/Mental Status: Mental Status NL, Mood NL Results Lab Laboratory Tests 09/07/22 15:27: Glucometer 263H 09/07/22 20:35: Glucometer 292H 09/08/22 04:27: White Blood Count 9.2, Red Blood Count 4.26L, Hemoglobin 13.6, Hematocrit 40, Mean Corpuscular Volume 95, Mean Corpuscular Hemoglobin 32, Mean Corpuscular Hemoglobin Concent 34, Red Cell Distribution Width 14.6H, Platelet Count 185, Mean Platelet Volume 10.0, Immature Granulocyte % (Auto) 5, Neutrophils (%) (Auto) 83H, Lymphocytes (%) (Auto) 4L, Monocytes (%) (Auto) 8, Eosinophils (%) (Auto) 0, Basophils (%) (Auto) 0, Neutrophils # (Auto) 7.6, Lymphocytes # (Auto) 0.4L, Monocytes # (Auto) 0.7, Eosinophils # (Auto) 0.0, Basophils # (Auto) 0.0, Immature Granulocyte # (Auto) 0.4H, Neutrophils % (Manual) 84, Lymphocytes % (Manual) 6, Prolymphocyte % 2, Monocytes % (Manual) 8, Blood Morphology Comment NORMAL, Sodium Level 138, Potassium Level 4.3, Chloride Level 98, Carbon Dioxide Level 28, Anion Gap 12, Blood Urea Nitrogen 35H, Creatinine 1.15, Estimat Glomerular Filtration Rate 66, BUN/Creatinine Ratio 30, Glucose Level 273H, Calcium Level 8.6, Corrected Calcium 9.4, Magnesium Level 2.4, Total Bilirubin 1.1H, Aspartate Amino Transf (AST/SGOT) 20, Alanine Aminotransferase (ALT/SGPT) 70H, Alkaline Phosphatase 53, Total Protein 5.8L, Albumin 3.0L 09/08/22 11:50: Glucometer 383H Radiology Date of Exam:09/08/22 CHEST 1 VIEW, AP/PA ONLY EXAMINATION: Chest 1 view HISTORY: Dyspnea COMPARISON: 09/07/2022. FINDINGS: Stable enlargement of the cardiac silhouette. Left-sided cardiac device is unchanged. Persistent likely small left pleural effusion. There are low lung volumes with interstitial opacities throughout both lungs. No pneumothorax. Degenerative changes of the thoracic spine. Osseous structures are otherwise intact. IMPRESSION: 1. Stable cardiomegaly and low lung volumes with interstitial opacities throughout both lungs. Assessment/Plan Assessment/Plan Assess & Plan/Chief Complaint AoC Respiratory failure Pulmonary Fibrosis Pulmonary Hypertension COPD -On vapotherm Present oxygen requirement poses challenge to placement Present goal is to attempt weaning supplemental oxygen -Fluid restriction to 1500 ml/day -Bumex -IS 10x/hr -Duoneb PRN, Incruse Ellipta Inhaler, and Albuterol -On Sildenafil -On Solumedrol Afib with RVR -S/P pacemaker placement (2019) -Cardiology consulted and appreciated -On Eliquis and Lopressor - PO Diltiazem in addition to 125ml IVP @ 5mls/hr -Did have an echocardiogram, which revealed an LVEF of 65-70%, with no major abnormalities noted -Tachycardia is improving, ranging from 80s-100s over the past 12 hours -Given improved rate control, referrals have been sent to [facility] -Presently SS is waiting to hear back from the above locations regardi ng long-term placement -PICC line placement d/t long-term care needs CARLA -BiPAP -Is not tolerating well General debility -Consider PT/OT R MCA CVA, 2017 - Still has position deficits in leg, motor and strength almost back to normal -On Plavix, Aspirin, Zetia, and Lipitor HTN -On Lopressor HLD -On Zetia DM2 -Diabetic diet -On Novolog sliding scale GI PPX -Protonix LIYAH GABRIEL DO 09/09/22 0500: Supervisory-Addendum Brief Verification & Attestation Participated in pt care: history, MDM, physical Personally performed: exam, history, MDM, supervision of care Care discussed with: Medical Student Procedures: n/a Results interpretation: Verified all documentation Verification and Attestation of Medical Student E/M Service A medical student performed and documented this service in my presence. I reviewed and verified all information documented by the medical student and made modifications to such information, when appropriate. I personally performed the physical exam and medical decision making. Liyah Gabriel, Sep 09, 2022,04:59 HARJINDER OLEARY Sep 08, 2022 12:45 LIYAH GABRIEL DO Sep 09, 2022 05:00
[2022-09-08] MEDS: eZETimibe 10 MG (ZETIA) TABLET PO SCH (20:48)
[2022-09-08] MEDS: LORazepam 0.5 MG (ATIVAN) TABLET PO PRN (20:54)
[2022-09-08 21:03] VITALS: BP 110/77
[2022-09-08 22:09] VITALS: BP 110/77
[2022-09-08] MEDS: LORazepam INJ 2 MG/ML (ATIVAN) VIAL IVP PRN (23:47)
[2022-09-09 02:10] VITALS: BP 140/96
[2022-09-09] MEDS: RT-ALBUTEROL SULF 2.5 MG/3 ML PRE-MIX VIAL INH SCH ×6 (02:10→21:29)
[2022-09-09] MEDS: RT-IPRATROPIUM (ATROVENT) 0.5MG/2.5ML AMP IH SCH ×6 (02:10→21:29)
[2022-09-09 04:04] LABS: BASOPHILS % (AUTO) 0 % (0-10); EOSINOPHILS % (AUTO) 0 % (0-10); HEMATOCRIT 40 % (40-54); HEMOGLOBIN 13.5 g/dL (13.3-17.7); LYMPHOCYTES # (AUTO) 0.4 10^3/uL (1.0-4.0); LYMPHOCYTES % (AUTO) 4 % (12-44); MEAN CORPUSCULAR HEMOGLOBIN 32 pg (25-34); MEAN CORPUSCULAR HGB CONC 34 g/dL (32-36); MEAN CORPUSCULAR VOLUME 96 fL (80-99); MEAN PLATELET VOLUME 10.1 fL (9.0-12.2); MONOCYTES # (AUTO) 0.8 10^3/uL (0.0-1.0); MONOCYTES % (AUTO) 9 % (0-12); NEUTROPHILS # (AUTO) 7.6 10^3/uL (1.8-7.8); NEUTROPHILS % (AUTO) 82 % (42-75); PLATELET COUNT 179 10^3/uL (130-400); WHITE BLOOD COUNT 9.3 10^3/uL (4.3-11.0)
[2022-09-09 04:06] LABS: POTASSIUM 4.4 MMOL/L (3.6-5.0)
[2022-09-09 04:07] LABS: CALCIUM 8.4 MG/DL (8.5-10.1)
[2022-09-09 04:08] LABS: TOTAL PROTEIN 5.7 GM/DL (6.4-8.2)
[2022-09-09 04:10] LABS: BILIRUBIN,TOTAL 1.1 MG/DL (0.1-1.0)
[2022-09-09 04:12] LABS: CREATININE SERUM 1.02 MG/DL (0.60-1.30)
[2022-09-09 04:14] LABS: MAGNESIUM 2.3 MG/DL (1.6-2.4)
[2022-09-09 04:25] LABS: ABG BASE EXCESS 9.1 MMOL/L (-2.5-2.5); ABG OXYGEN SATURATION 98 % (94-100); ABG PCO2 49 MMHG (35-45); ABG PH 7.44 (7.37-7.43); ABG PO2 91 MMHG (79-93); ABG TCO2 35.1 MMOL/L (21.0-31.0)
[2022-09-09 04:26] LABS: ALLENS TEST YES-POS; INSPIRED O2 40%; PATIENT TEMP 36.4; VENTILATOR NO
[2022-09-09] MEDS: inSUlin ASPART (NovoLOG) 1 UNIT/0.01 ML (CHARGE PER UNIT) SC SCH ×4 (06:23→20:37)
[2022-09-09] MEDS: MULTIVIT W/MINERALS TAB (THERAGRAN M) PO SCH (06:23)
[2022-09-09] MEDS: PANTOPRAZOLE 40 MG (PROTONIX) TAB PO SCH (06:23)
[2022-09-09 06:41] VITALS: BP 115/73
[2022-09-09] MEDS: ACETAMINOPHEN 325 MG TABLET PO PRN (08:43)
[2022-09-09] MEDS: SENNA W/DOCUSATE (SENOKOT S) TABLET PO SCH ×2 (08:44→20:38)
[2022-09-09] MEDS: ASPIRIN 81 MG CHEW (CHILDREN'S ASA) PO SCH (08:44)
[2022-09-09] MEDS: polyethylene glycoL POWDER 17 GM (MIRALAX) PACK PO SCH ×2 (08:44→20:38)
[2022-09-09] MEDS: meTOproloL SUCCINATE 50 MG (TOPROL XL) TAB PO SCH (08:44)
[2022-09-09] MEDS: SENNOSIDES 8.6 MG (SENOKOT) TAB PO SCH ×2 (08:44→20:38)
[2022-09-09] MEDS: SILDENAFIL 20 MG (REVATIO) TAB PO SCH (08:44)
[2022-09-09] MEDS: BUMETANIDE 1 MG (BUMEX) TAB PO SCH (08:44)
[2022-09-09] MEDS: APIXABAN 5 MG (ELIQUIS) TABLET PO SCH ×2 (08:44→21:02)
[2022-09-09] MEDS: methylPREDNISolone 40 MG/ML (Solu-MEDROL) VIAL IVP SCH ×2 (08:45→21:02)
--- NOTE | 2022-09-09 08:49 | Physical Therapy Daily Note ---
PT Daily Note-Current Subjective Patient agrees to PT. Currently on Vapotherm Pain Numeric Pain Scale: 0-No Pain Location: No Pain Reported Section J - Health Conditions 1. Rarely or not at all 2. Occasionally 3. Frequently 4. Almost constantly 8. Unable to answer Pain Effect on Sleep: 1 Pain Interference with Therapy: 1 Pain Interference w/Day-to-Day: 1 Mental Status Patient Orientation: Normal For Age Attachments: Oxygen (vapotherm), Hodgson Catheter Transfers SCALE: Activities may be completed with or without assistive devices. 7-Gtvwppbjjc-fxfetuk completes the activity by him/herself with no assistance from a helper. 5-Set-up or Clean-up Assistance-helper sets up or cleans up; patient completes activity. [place] assists only prior to or following the activity. 4-Supervision or Touching Assistance-helper provides verbal cues and/or touching/steadying and/or contact guard assistance as patient completes activity. Assistance may be provided throughout the activity or intermittently. 3-Partial/Moderate Assistance-helper does LESS THAN HALF the effort. [place] lifts, holds or supports trunk or limbs, but provides less than half the effort. 2-Substantial/Maximal Assistance-helper does MORE THAN HALF the effort. [place] lifts or holds trunk or limbs and provides more than half the effort. 3-Vehfnrifg-islajj does ALL the effort. Patient does none of the effort to complete the activity. Or, the assistance of 2 or more helpers is required for the patient to complete the activity. If activity was not attempted, code reason: 7-Patient Refused. 9-Not Applicable-not attempted and the patient did not perform the activity befo re the current illness, exacerbation or injury. 10-Not Attempted due to Environmental Limitations-(lack of equipment, weather re straints, etc.). 88-Not Attempted due to Medical Conditions or Safety Concerns. Lying to Sitting/Side of Bed(Q: 4 Sit to Stand (QC): 4 Chair/Gnr-ux-Jicft Xfer(QC): 4 Gait Training Distance: 5 steps Gait Assistive Device: FWW Exercises Seated Therapy Exercises: Ankle pumps, Long arc quads, Hip flexion Seated Reps: 15 storage wharfage clerk present, SAO2 decreased to 75% with minimal activity with vapotherm setting 25L/65%. Patient did recover fairly quickly. Continue to increase OOB activity. Patient is up in recliner with needs met. PT Penitentiary Goals Penitentiary Goals PT Gauger Chief Goals Time Frame: Sep 20, 2022 Roll Left & Right (QC): 6 Sit to Lying (QC): 6 Lying-Sitting on Side/Bed(QC): 6 Sit to Stand (QC): 6 Chair/Tyr-vc-Esweo Xfer(QC): 6 Toilet Transfer (QC): 6 Walk 10 feet (QC): 4 Walk 50ft with 2 Turns (QC): 4 PT Plan Treatment/Plan Treatment Plan: Continue Plan of Care Treatment Plan: Bed Mobility, Education, Functional Activity Cece, Functional Strength, Gait, Safety, Therapeutic Exercise, Transfers Treatment Duration: Sep 20, 2022 Frequency: 6 times per week Estimated Hrs Per Day: .25 hour per day Patient and/or Family Agrees t: Yes Time Time In: 823 Time Out: 833 DATE: Sep 09, 2022 Total Billed Treatment Time: 10 Total Billed Treatment 1 visit FA 10 min ISAIAH RUIZ PT Sep 09, 2022 08:49
--- NOTE | 2022-09-09 08:55 | Progress Note - Cardiology ---
Cardiology SOAP Progress Note Objective: I&O/Vital Signs 09/09/22 09/10/22 09/10/22 09/10/22 23:43 01:00 02:33 03:51 Temp 36.6 36.5 Pulse 79 75 77 84 Resp 32 17 24 B/P (MAP) 148/92 (110) 113/75 (88) Pulse Ox 97 98 97 O2 Delivery NIV Bilevel NIV Bilevel O2 Flow Rate 45.00 45.00 45.00 09/10/22 09/10/22 09/10/22 09/10/22 04:00 05:15 05:23 05:23 Pulse 80 Resp 28 B/P (MAP) 152/90 (110) Pulse Ox 97 94 94 O2 Delivery NIV Bilevel Vapotherm Vapotherm Vapotherm O2 Flow Rate 45.00 25.00 25.00 25.00 60.00 FiO2 60 60 09/10/22 09/10/22 09/10/22 07:02 07:58 09:00 Temp 36.9 Pulse 77 83 Resp 20 B/P (MAP) 141/88 (105) Pulse Ox 95 94 O2 Delivery Vapotherm Vapotherm O2 Flow Rate 25.00 FiO2 60 09/10/22 00:00 Intake Total 1450 ml Output Total 425 ml Balance 1025 ml Constitutional: AAO x 3, well-developed, well-nourished Respiratory: No accessory muscle use, No respiratory distress; chest expansion is symmetric, chest is bilaterally symmetric, other (diminished throughout; dyspneic with simple conversation) Cardiovascular: regular rate-rhythm, tachycardia, systolic murmur (soft ELDER at card base) Gastrointestional: No tender; soft, audible bowel sounds Extremities: No significant edema Neurologic/Psychiatric: oriented x 3, other (moves all limbs equally) Skin: normal color, warm/dry Results/Procedures: Labs Laboratory Tests 09/09/22 11:00: Glucometer 312H 09/09/22 15:15: Glucometer 273H 09/09/22 20:34: Glucometer 168H 09/10/22 03:25: White Blood Count 10.2, Red Blood Count 4.31, Hemoglobin 14.0, Hematocrit 41, Mean Corpuscular Volume 94, Mean Corpuscular Hemoglobin 33, Mean Corpuscular He moglobin Concent 35, Red Cell Distribution Width 14.3, Platelet Count 180, Mean Platelet Volume 9.9, Immature Granulocyte % (Auto) 6, Neutrophils (%) (Auto) 83H , Lymphocytes (%) (Auto) 5L, Monocytes (%) (Auto) 6, Eosinophils (%) (Auto) 0, Basophils (%) (Auto) 0, Neutrophils # (Auto) 8.5H, Lymphocytes # (Auto) 0.5L, Monocytes # (Auto) 0.6, Eosinophils # (Auto) 0.0, Basophils # (Auto) 0.0, Immature Granulocyte # (Auto) 0.6H, Sodium Level 137, Potassium Level 4.4, Chloride Level 100, Carbon Dioxide Level 28, Anion Gap 9, Blood Urea Nitrogen 25H, Creatinine 0.84, Estimat Glomerular Filtration Rate 90, BUN/Creatinine Ratio 30, Glucose Level 194H, Calcium Level 8.4L, Corrected Calcium 9.2, Magnesium Level 2.3, Total Bilirubin 1.0, Aspartate Amino Transf (AST/SGOT) 20, Alanine Aminotransferase (ALT/SGPT) 55, Alkaline Phosphatase 51, Total Protein 5.7L, Albumin 3.0L 09/10/22 03:28: Blood Gas Puncture Site LRAD, Blood Gas Patient Temperature 36.6, Arterial Blood pH 7.45H, Arterial Blood Partial Pressure CO2 47H, Arterial Blood Partial Pressure O2 80, Arterial Blood HCO3 32H, Arterial Blood Total CO2 33.4H, Arterial Blood Oxygen Saturation 97, Arterial Blood Base Excess 7.7H, Andrea Test YES-POS, Blood Gas Ventilator Setting NO, Blood Gas Inspired Oxygen 50% A/P: Assessment: Interstitial lung disease vs other pulmonary causes of pulmonary hypertension - management per eICU and Medical services Acute on chronic resp failure - Recent hospitalization at [facility] in [place], [place] d/t resp failure d/t pneumonia and Influenza A on 07-21-22 - transferred to [place] in [place], [place] on 07-31-22 - admitted to [facility] in mid Aug 2022 - Pulmonary HTN of undetermined etiology - on sildenafil and chronic oxygen at home (prior to admission) - followed by Dr. Kaur of pulmonary services in [place], [place] - deteriorating resp status requiring transfer to ICU on 09-02-22 SSS. PAF with controlled vent response seen on tele of 08/23/22 (CHADSVASc score 6) - s/p pacemaker in 2019, followed by Dr Carpenter at [place], [place] - had been on apixaban for stroke prophylaxis since 08/23/22 - stopped (by medical services) d/t episode of hematuria - resumed on 08-28-22 - Echocardiogram of 09-02-22 showed LVEF 65-70%. Trivial AoR H/o HTN H/o HLD CARLA DM 2 H/o previous CVA - Alexa 2016 - treated at [facility] - per pt source undetermined - no residual COPD H/o tobaccoism - quit 30 yrs ago Plan: * Pulm htn and ac on ch resp failure management is with the Med and ICU svce * Continue BB and dilt because of a h/o PAF * Resp failure does not appear to be primarily of cardiac origin (normal LVEF, normal BNP). * Advise transfer to tertiary care facility with pulmonology services - waiting on LTAC placement in [place] or [place] * Monitor labs EMETERIO HUYNH Sep 09, 2022 08:55
[2022-09-09] MEDS: NEO/POLY/BAC (NEOSPORIN) OINT 15 GM TUBE TOP SCH ×2 (09:21→21:02)
[2022-09-09] MEDS: UMECLIDINIUM BROMIDE (INCRUSE ELLIPTA) 7'S IH SCH (10:11)
--- NOTE | 2022-09-09 11:23 | Progress Note ---
JARETJulissaHARJINDER LAURENT 09/09/22 1122: Subjective Date Seen by a Provider: Sep 09, 2022 Time Seen by a Provider: 08:15 Subjective/Events-last exam Upon follow-up for AoC respiratory failure and AFiB with RVR, Gulshan was sitting upright in his recliner with vapotherm in place (25 O2 flow, 65% FiO2). He s tates that he slept well last night with his BiPAP, and feels slightly more energetic; he further states that he has a mild headache secondary to wearing the BiPAP mask, for which he took Tylenol. He reports that his appetite remains intact. He had a bowel movement yesterday, and he has no complaints of pain. He states that his shortness of air is unchanged from yesterday. Presently, LTAC in [place] is coordinating with Gulshan and his daughter for placement. Gulshan is pleasant and conversational. Review of Systems General: No Chills, No Night Sweats HEENT: Head Aches; No Visual Changes Pulmonary: No Dyspnea, No Cough Cardiovascular: No: Chest Pain, Palpitations Gastrointestinal: No: Nausea, Vomiting Genitourinary: No Dysuria, No Frequency Musculoskeletal: No: neck pain, shoulder pain Neurological: Weakness; No: Numbness Focused Exam Respiratory: Chest Non Tender, No Accessory Muscle Use, No Respiratory Distress, Decreased Breath Sounds Cardiovascular: Regular Rate, Rhythm, No Edema, No Gallop, No JVD, No Murmur Capillary Refill: Less Than 3 Seconds Peripheral Pulses: 2+ Radial Pulses (R), 2+ Radial Pulses (L) Skin: normal color, warm/dry Objective Exam Last Set of Vital Signs Vital Signs Date Time Temp Pulse Resp B/P (MAP) Pulse Ox O2 Delivery O2 Flow Rate FiO2 09/09/22 10:12 97 Vapotherm 25.00 65 09/09/22 08:00 36.0 95 28 133/95 (108) Capillary Refill : Less Than 3 Seconds I&O Intake and Output 09/09/22 00:00 Intake Total 1500 ml Output Total 1200 ml Balance 300 ml Intake Oral 1500 ml Output Urine Total 1200 ml # Voids 3 # Bowel Movements 1 General: Alert, Oriented X3, Cooperative, No Acute Distress HEENT: Atraumatic, PERRLA, EOMI Neck: Supple, No JVD Lungs: Clear to Auscultation, Other (decreased breath sounds) Heart: Regular Rate (HR was 89 at the time of my visit, but does still intermittently have tachycardia) Abdomen: Normal Bowel Sounds, Soft, No Tenderness Extremities: No Clubbing, No Cyanosis Skin: No Rashes, No Breakdown Neuro: Normal Speech Psych/Mental Status: Mental Status NL, Mood NL Results Lab Laboratory Tests 09/08/22 11:50: Glucometer 383H 09/08/22 16:28: Glucometer 259H 09/08/22 20:37: Glucometer 282H 09/09/22 03:34: White Blood Count 9.3, Red Blood Count 4.18L, Hemoglobin 13.5, Hematocrit 40, Mean Corpuscular Volume 96, Mean Corpuscular Hemoglobin 32, Mean Corpuscular Hemoglobin Concent 34, Red Cell Distribution Width 14.6H, Platelet Count 179, Mean Platelet Volume 10.1, Immature Granulocyte % (Auto) 5, Neutrophils (%) (Auto) 82H, Lymphocytes (%) (Auto) 4L, Monocytes (%) (Auto) 9, Eosinophils (%) (Auto) 0, Basophils (%) (Auto) 0, Neutrophils # (Auto) 7.6, Lymphocytes # (Auto) 0.4L, Monocytes # (Auto) 0.8, Eosinophils # (Auto) 0.0, Basophils # (Auto) 0.0, Immature Granulocyte # (Auto) 0.5H, Sodium Level 137, Potassium Level 4.4, Chloride Level 98, Carbon Dioxide Level 31, Anion Gap 8, Blood Urea Nitrogen 27H , Creatinine 1.02, Estimat Glomerular Filtration Rate 76, BUN/Creatinine Ratio 26, Glucose Level 237H, Calcium Level 8.4L, Corrected Calcium 9.2, Magnesium Level 2.3, Total Bilirubin 1.1H, Aspartate Amino Transf (AST/SGOT) 19, Alanine Aminotransferase (ALT/SGPT) 63H, Alkaline Phosphatase 55, Total Protein 5.7L, Albumin 3.0L 09/09/22 04:19: Blood Gas Puncture Site L RAD, Blood Gas Patient Temperature 36.4, Arterial Blood pH 7.44H, Arterial Blood Partial Pressure CO2 49H, Arterial Blood Partial Pressure O2 91, Arterial Blood HCO3 34H, Arterial Blood Total CO2 35.1H, Arterial Blood Oxygen Saturation 98, Arterial Blood Base Excess 9.1H, Andrea Test YES-POS, Blood Gas Ventilator Setting NO, Blood Gas Inspired Oxygen 40% 09/09/22 11:00: Glucometer 312H Assessment/Plan Assessment/Plan Assess & Plan/Chief Complaint AoC Respiratory failure Pulmonary Fibrosis Pulmonary Hypertension COPD -On vapotherm Present oxygen requirement poses challenge to placement Present goal is to attempt weaning supplemental oxygen -Fluid restriction to 1500 ml/day -Bumex -IS 10x/hr -Duoneb PRN, Incruse Ellipta Inhaler, and Albuterol -On Sildenafil -On Solumedrol Afib with RVR -S/P pacemaker placement (2019) -Cardiology consulted and appreciated -On Eliquis and Lopressor - PO Diltiazem in addition to 125ml IVP @ 5mls/hr -Did have an echocardiogram, which revealed an LVEF of 65-70%, with no major abnormalities noted -Tachycardia is improving, ranging from 80s-100s over the past 12 hours -Given improved rate control, referrals have been sent to [facility] [place] and [facility] -Presently SS is waiting to hear back from the above locations regarding long-term placement -[place] [facility] is presently speaking with Gulshan, and has attempted to speak with his daughter. -SS is following -PICC line placement d/t long-term care needs CARLA -BiPAP -Is not tolerating well General debility -Consider PT/OT R MCA CVA, 2017 - Still has position deficits in leg, motor and strength almost back to normal -On Plavix, Aspirin, Zetia, and Lipitor HTN -On Lopressor HLD -On Zetia DM2 -Diabetic diet -On Novolog sliding scale GI PPX -Protonix LIYAH GABRIEL DO 09/10/22 0507: Supervisory-Addendum Brief Verification & Attestation Participated in pt care: history, MDM, physical Personally performed: exam, history, MDM, supervision of care Care discussed with: Medical Student Procedures: n/a Results interpretation: Verified all documentation Verification and Attestation of Medical Student E/M Service A medical student performed and documented this service in my presence. I reviewed and verified all information documented by the medical student and made modifications to such information, when appropriate. I personally performed the physical exam and medical decision making. Liyah Gabriel, Sep 10, 2022,05:07 HARJINDER OLEARY Sep 09, 2022 11:22 LIYAH GABRIEL DO Sep 10, 2022 05:07
--- NOTE | 2022-09-09 11:40 | Occupational Ther Daily Note ---
OT Current Status-Daily Note Subjective Patient up in chair, reports dong as well as he can, likes new room in cardiac step down. Mental Status/Objective Patient Orientation: Person, Place, Time, Situation Attachments: Oxygen 02 vapotherm setting 25L/65%. ADL-Treatment SOA in standing, SOA when ordering lunch on phone Therapy Code Descriptions/Definitions Functional [place] Measure: 0=Not Assessed/NA 4=Minimal Assistance 1=Total Assistance 5=Supervision or Setup 2=Maximal Assistance 6=Modified [place] 3=Moderate Assistance 7=Complete IndependenceSCALE: Activities may be completed with or without assistive devices. 1-Iqmdyqaidh-ewyywvn completes the activity by him/herself with no assistance from a helper. 5-Set-up or Clean-up Assistance-helper sets up or cleans up; patient completes activity. [place] assists only prior to or following the activity. 4-Supervision or Touching Assistance-helper provides verbal cues and/or touching/steadying and/or contact guard assistance as patient completes activity. Assistance may be provided throughout the activity or intermittently. 3-Partial/Moderate Assistance-helper does LESS THAN HALF the effort. [place] lifts, holds or supports trunk or limbs, but provides less than half the effort. 2-Substantial/Maximal Assistance-helper does MORE THAN HALF the effort. [place] lifts or holds trunk or limbs and provides more than half the effort. 1-Ymttlmyor-pjzklf does ALL the effort. Patient does none of the effort to complete the activity. Or, the assistance of 2 or more helpers is required for the patient to complete the activity. If activity was not attempted, code reason: 7-Patient Refused. 9-Not Applicable-not attempted and the patient did not perform the activity before the current illness, exacerbation or injury. 10-Not Attempted due to Environmental Limitations-(lack of equipment, weather restraints, etc.). 88-Not Attempted due to Medical Conditions or Safety Concerns. Eating (QC): 6 Oral Hygiene (QC): 5 Shower/Bathe Self (QC): 2 Upper Body Dressing (QC): 4 Lower Body Dressing (QC): 3 On/Off Footwear: 2 Toileting Hygiene (QC): 7 (pt reports no needto toilet) Toilet Transfer (QC): 4 Other Treatment Functional standing 3 minutes 27 seconds, which is an improvement of appropriately 1 minute from last timed standing and object retrieval taks w/ FWW SAO2 decreased to 72% with minimal activity with vapotherm setting 25L/65%. Patient did recover fairly quickly in sitting and PLB instruction. Continue to increase OOB activity. OT recommends standing 2-3 times every hour Education OT Patient Education: Correct positioning, Exercise program, Progress toward Goal/Update tx plan, Purpose of tx/functional activities, Reviewed precautions, Rehab process, Safety issues, Transfer techniques, Use of adapted equipment Teaching Recipient: Patient Teaching Methods: Demonstration, Discussion Response to Teaching: Verbalize Understanding, Return Demonstration, Reinforcement Needed OT Senior Care Goals Family Assessment Worker Goals Eating (QC): 6 Oral Hygiene (QC): 6 Toileting Hygiene (QC): 6 Shower/Bathe Self (QC): 6 Upper Body Dressing (QC): 6 Lower Body Dressing (QC): 6 On/Off Footwear (QC): 6 1=Demonstrate adherence to instructed precautions during ADL tasks. 2=Patient will verbalize/demonstrate understanding of assistive devices/modifications for ADL. 3=Patient will improve strength/tolerance for activity to enable patient to perform ADL's. OT Education/Plan Problem List/Assessment Assessment: Decreased Activ Tolerance, Decreased Safety Aware, Decreased UE Strength, Impaired Coordination, Impaired Funct Balance, Impaired I ADL's, Impaired Self-Care Skills Discharge Recommendations Plan/Recommendations: Continue POC Therapy Discharge Recommendati: Post Acute OT Comment Encouraged to increase intermittent standing w/ AD and staff Treatment Plan/Plan of Care Treatment,Training & Education: Yes Patient would benefit from OT for education, treatment and training to promote independence in ADL's, mobility, safety and/or upper extremity function for ADL's. Plan of Care: ADL Retraining, Cognitive Retraining, Concurrent Therapy, Fu nctional Mobility, Group Exercise/Act as Ind Comment Remains in recliner w/ social work entering room Treatment Duration: Sep 13, 2022 Frequency: 3 times per week (3-5 times per week) Estimated Hrs Per Day: .25 hour per day Agreement: Yes Rehab Potential: Guarded Time Start Time: 11:18 Stop Time: 11:33 DATE: Sep 09, 2022 Total Time Billed (hr/min): 10 Billed Treatment Time 1 visit FA 1 15 min IRWIN SPEAR OT Sep 09, 2022 11:40
--- NOTE | 2022-09-09 15:57 | Progress Note - Cardiology ---
Cardiology SOAP Progress Note Subjective: Shortness of breath with activity Denies cp or palp or syncope Mild leg swelling No n/v/d Objective: I&O/Vital Signs 09/09/22 09/09/22 09/09/22 09/09/22 04:00 06:41 07:11 08:00 Temp 36.4 36.0 Pulse 92 87 89 95 Resp 24 23 28 B/P (MAP) 124/83 (97) 133/95 (108) Pulse Ox 100 97 94 O2 Delivery NIV Bilevel NIV Bilevel O2 Flow Rate 40.00 40.00 40.00 09/09/22 09/09/22 09/09/22 09/09/22 09:40 10:12 12:00 12:46 Temp 36.3 Pulse 91 92 Resp 26 B/P (MAP) 126/69 (88) Pulse Ox 97 94 O2 Delivery Vapotherm Vapotherm Vapotherm O2 Flow Rate 25.00 25.00 65.00 FiO2 65 65 09/09/22 14:17 Pulse Ox 97 O2 Delivery Vapotherm O2 Flow Rate 25.00 FiO2 65 09/09/22 00:00 Intake Total 600 ml Output Total 750 ml Balance -150 ml Constitutional: AAO x 3, well-developed, well-nourished Respiratory: No accessory muscle use, No respiratory distress; chest expansion is symmetric, chest is bilaterally symmetric, other (diminished throughout; dyspneic with simple conversation) Cardiovascular: regular rate-rhythm, tachycardia, systolic murmur (soft ELDER at card base) Gastrointestional: No tender; soft, audible bowel sounds Extremities: No significant edema Neurologic/Psychiatric: oriented x 3, other (moves all limbs equally) Skin: normal color, warm/dry Results/Procedures: Labs Laboratory Tests 09/08/22 16:28: Glucometer 259H 09/08/22 20:37: Glucometer 282H 09/09/22 03:34: White Blood Count 9.3, Red Blood Count 4.18L, Hemoglobin 13.5, Hematocrit 40, Mean Corpuscular Volume 96, Mean Corpuscular Hemoglobin 32, Mean Corpuscular Hemoglobin Concent 34, Red Cell Distribution Width 14.6H, Platelet Count 179, Mean Platelet Volume 10.1, Immature Granulocyte % (Auto) 5, Neutrophils (%) (Auto) 82H, Lymphocytes (%) (Auto) 4L, Monocytes (%) (Auto) 9, Eosinophils (%) (Auto) 0, Basophils (%) (Auto) 0, Neutrophils # (Auto) 7.6, Lymphocytes # (Auto) 0.4L, Monocytes # (Auto) 0.8, Eosinophils # (Auto) 0.0, Basophils # (Auto) 0.0, Immature Granulocyte # (Auto) 0.5H, Sodium Level 137, Potassium Level 4.4, Chloride Level 98, Carbon Dioxide Level 31, Anion Gap 8, Blood Urea Nitrogen 27H , Creatinine 1.02, Estimat Glomerular Filtration Rate 76, BUN/Creatinine Ratio 26, Glucose Level 237H, Calcium Level 8.4L, Corrected Calcium 9.2, Magnesium Level 2.3, Total Bilirubin 1.1H, Aspartate Amino Transf (AST/SGOT) 19, Alanine Aminotransferase (ALT/SGPT) 63H, Alkaline Phosphatase 55, Total Protein 5.7L, Albumin 3.0L 09/09/22 04:19: Blood Gas Puncture Site L RAD, Blood Gas Patient Temperature 36.4, Arterial Blood pH 7.44H, Arterial Blood Partial Pressure CO2 49H, Arterial Blood Partial Pressure O2 91, Arterial Blood HCO3 34H, Arterial Blood Total CO2 35.1H, Arterial Blood Oxygen Saturation 98, Arterial Blood Base Excess 9.1H, Andrea Test YES-POS, Blood Gas Ventilator Setting NO, Blood Gas Inspired Oxygen 40% 09/09/22 11:00: Glucometer 312H 09/09/22 15:15: Glucometer 273H Laboratory Tests 09/08/22 04:27 09/09/22 03:34 A/P: Assessment: Interstitial lung disease vs other pulmonary causes of pulmonary hypertension - management per eICU and Medical services Acute on chronic resp failure - Recent hospitalization at [facility] in [place], [place] d/t resp failure d/t pneumonia and Influenza A on 07-21-22 - transferred to [facility] in [place], [place] on 07-31-22 - admitted to [facility] in mid Aug 2022 - Pulmonary HTN of undetermined etiology - on sildenafil and chronic oxygen at home (prior to admission) - followed by Dr. Kaur of pulmonary services in [place], [place] - deteriorating resp status requiring transfer to ICU on 09-02-22 [facility]. PAF with controlled vent response seen on tele of 08/23/22 (CHADSVASc score 6) - s/p pacemaker in 2019, [place] - had been on apixaban for stroke prophylaxis since 08/23/22 - stopped (by medical services) d/t episode of hematuria - resumed on 08-28-22 - Echocardiogram of 09-02-22 showed LVEF 65-70%. Trivial AoR H/o HTN H/o HLD CARLA DM 2 H/o previous CVA - Alexa 2016 - treated at [place] - per pt source undetermined - no residual COPD H/o tobaccoism - quit 30 yrs ago Plan: * Pulm htn and ac on ch resp failure management is with the Med and ICU svce * Continue BB and dilt because of a h/o PAF * Resp failure does not appear to be primarily of cardiac origin (normal LVEF, normal BNP). * Advise transfer to tertiary care facility with pulmonology services - waiting on LTAC placement in [place] or [place] * Monitor labs EDUARDO LANE MD FACP FAC CCDS Sep 09, 2022 15:57
[2022-09-09] MEDS: LORazepam INJ 2 MG/ML (ATIVAN) VIAL IVP PRN (21:01)
[2022-09-09] MEDS: eZETimibe 10 MG (ZETIA) TABLET PO SCH (21:02)
[2022-09-09 21:29] VITALS: BP 103/65
[2022-09-10 02:33] VITALS: BP 115/75
[2022-09-10] MEDS: RT-ALBUTEROL SULF 2.5 MG/3 ML PRE-MIX VIAL INH SCH ×6 (02:33→21:17)
[2022-09-10] MEDS: RT-IPRATROPIUM (ATROVENT) 0.5MG/2.5ML AMP IH SCH ×6 (02:33→21:17)
[2022-09-10 03:43] LABS: BASOPHILS % (AUTO) 0 % (0-10); EOSINOPHILS % (AUTO) 0 % (0-10); HEMATOCRIT 41 % (40-54); LYMPHOCYTES # (AUTO) 0.5 10^3/uL (1.0-4.0); LYMPHOCYTES % (AUTO) 5 % (12-44); MEAN CORPUSCULAR HEMOGLOBIN 33 pg (25-34); MEAN CORPUSCULAR HGB CONC 35 g/dL (32-36); MEAN CORPUSCULAR VOLUME 94 fL (80-99); MEAN PLATELET VOLUME 9.9 fL (9.0-12.2); MONOCYTES # (AUTO) 0.6 10^3/uL (0.0-1.0); MONOCYTES % (AUTO) 6 % (0-12); NEUTROPHILS # (AUTO) 8.5 10^3/uL (1.8-7.8); NEUTROPHILS % (AUTO) 83 % (42-75); PLATELET COUNT 180 10^3/uL (130-400); WHITE BLOOD COUNT 10.2 10^3/uL (4.3-11.0)
[2022-09-10 03:51] LABS: POTASSIUM 4.4 MMOL/L (3.6-5.0)
[2022-09-10 03:52] LABS: CALCIUM 8.4 MG/DL (8.5-10.1)
[2022-09-10 03:53] LABS: TOTAL PROTEIN 5.7 GM/DL (6.4-8.2)
[2022-09-10 03:57] LABS: CREATININE SERUM 0.84 MG/DL (0.60-1.30)
[2022-09-10 03:59] LABS: MAGNESIUM 2.3 MG/DL (1.6-2.4)
[2022-09-10 04:10] LABS: ABG BASE EXCESS 7.7 MMOL/L (-2.5-2.5); ABG OXYGEN SATURATION 97 % (94-100); ABG PCO2 47 MMHG (35-45); ABG PH 7.45 (7.37-7.43); ABG PO2 80 MMHG (79-93); ABG TCO2 33.4 MMOL/L (21.0-31.0); ALLENS TEST YES-POS; INSPIRED O2 50%; PATIENT TEMP 36.6; VENTILATOR NO
[2022-09-10] MEDS: inSUlin ASPART (NovoLOG) 1 UNIT/0.01 ML (CHARGE PER UNIT) SC SCH ×4 (06:04→20:38)
[2022-09-10] MEDS: PANTOPRAZOLE 40 MG (PROTONIX) TAB PO SCH (06:04)
[2022-09-10] MEDS: MULTIVIT W/MINERALS TAB (THERAGRAN M) PO SCH (06:04)
--- NOTE | 2022-09-10 06:23 | Diagnostic Imaging Report ---
INDICATION: Dyspnea. Comparison is made with prior examination 09/08/2022. FINDINGS: There is cardiomegaly. There is some venous congestion. There is more diffuse bilateral airspace disease. There is no pleural effusion or pneumothorax. Mediastinum is unremarkable. Pacemaker overlies left hemithorax. IMPRESSION: Cardiomegaly and some venous congestion with questionable more diffuse bilateral airspace disease. Recommend clinical correlation. Dictated by: Dictated on workstation # [id number]
[2022-09-10] MEDS: BUMETANIDE 1 MG (BUMEX) TAB PO SCH (07:53)
[2022-09-10] MEDS: SILDENAFIL 20 MG (REVATIO) TAB PO SCH (07:53)
[2022-09-10] MEDS: APIXABAN 5 MG (ELIQUIS) TABLET PO SCH ×2 (07:53→20:31)
[2022-09-10] MEDS: ASPIRIN 81 MG CHEW (CHILDREN'S ASA) PO SCH (07:53)
[2022-09-10] MEDS: methylPREDNISolone 40 MG/ML (Solu-MEDROL) VIAL IVP SCH ×2 (07:54→20:31)
[2022-09-10] MEDS: meTOproloL SUCCINATE 50 MG (TOPROL XL) TAB PO SCH (07:54)
[2022-09-10] MEDS: NEO/POLY/BAC (NEOSPORIN) OINT 15 GM TUBE TOP SCH ×2 (07:54→20:38)
[2022-09-10] MEDS: polyethylene glycoL POWDER 17 GM (MIRALAX) PACK PO SCH ×2 (08:00→20:23)
[2022-09-10] MEDS: SENNOSIDES 8.6 MG (SENOKOT) TAB PO SCH ×2 (08:00→20:23)
[2022-09-10] MEDS: SENNA W/DOCUSATE (SENOKOT S) TABLET PO SCH ×2 (08:00→20:23)
--- NOTE | 2022-09-10 10:49 | Progress Note - Cardiology ---
Cardiology SOAP Progress Note Subjective: No new c/o Remains SOB Objective: I&O/Vital Signs 09/10/22 09/11/22 09/11/22 09/11/22 23:41 01:00 01:28 04:00 Temp 36.7 36.6 Pulse 84 85 Resp 16 B/P (MAP) 114/75 (88) Pulse Ox 96 95 O2 Delivery NIV Bilevel Vapotherm Vapotherm O2 Flow Rate 45.00 25.00 30.00 60.00 FiO2 60 09/11/22 09/11/22 09/11/22 09/11/22 06:36 06:53 06:56 07:00 Pulse 86 Pulse Ox 100 99 97 O2 Delivery Vapotherm Vapotherm Vapotherm O2 Flow Rate 30.00 30.00 30.00 70.00 FiO2 70 70 09/11/22 09/11/22 09/11/22 09/11/22 07:58 08:00 08:10 08:33 Temp 36.6 Pulse 80 84 Resp 16 B/P (MAP) 113/75 (88) Pulse Ox 99 99 95 96 O2 Delivery Vapotherm Vapotherm Vapotherm O2 Flow Rate 25.00 25.00 25.00 60.00 FiO2 70 60 60 09/11/22 09/11/22 09/11/22 10:08 10:13 10:14 Pulse Ox 97 95 94 O2 Delivery Vapotherm Vapotherm Vapotherm O2 Flow Rate 25.00 25.00 25.00 FiO2 60 50 50 09/10/22 23:59 Intake Total 1375 ml Output Total 1075 ml Balance 300 ml Constitutional: AAO x 3, well-developed, well-nourished Respiratory: No accessory muscle use, No respiratory distress; chest expansion is symmetric, chest is bilaterally symmetric, other (diminished throughout; dyspneic with simple conversation) Cardiovascular: regular rate-rhythm, tachycardia, systolic murmur (soft ELDER at card base) Gastrointestional: No tender; soft, audible bowel sounds Extremities: No significant edema Neurologic/Psychiatric: oriented x 3, other (moves all limbs equally) Skin: normal color, warm/dry Results/Procedures: Labs Laboratory Tests 09/10/22 15:40: Glucometer 346H 09/10/22 16:20: Glucometer 291H 09/10/22 20:33: Glucometer 248H 09/11/22 03:18: White Blood Count 13.3H, Red Blood Count 4.30, Hemoglobin 14.1, Hematocrit 41, Mean Corpuscular Volume 94, Mean Corpuscular Hemoglobin 33, Mean Corpuscular Hemoglobin Concent 35, Red Cell Distribution Width 14.6H, Platelet Count 179, Mean Platelet Volume 9.9, Immature Granulocyte % (Auto) 5, Neutrophils (%) (Auto) 79H, Lymphocytes (%) (Auto) 6L, Monocytes (%) (Auto) 10, Eosinophils (%) (Auto) 0, Basophils (%) (Auto) 0, Neutrophils # (Auto) 10.5H, Lymphocytes # (Auto) 0.8L, Monocytes # (Auto) 1.3H, Eosinophils # (Auto) 0.0, Basophils # (Auto) 0.0, Immature Granulocyte # (Auto) 0.7H, Sodium Level 135, Potassium Level 4.3, Chloride Level 99, Carbon Dioxide Level 27, Anion Gap 9, Blood Urea Nitrogen 25H, Creatinine 0.94, Estimat Glomerular Filtration Rate 84, BUN/Creatinine Ratio 27, Glucose Level 177H, Calcium Level 8.6, Corrected Calcium 9.4, Magnesium Level 2.2, Total Bilirubin 0.8, Aspartate Amino Transf (AST/SGOT) 17, Alanine Aminotransferase (ALT/SGPT) 45, Alkaline Phosphatase 55, Total Protein 5.6L, Albumin 3.0L A/P: Assessment: Interstitial lung disease vs other pulmonary causes of pulmonary hypertension - management per eICU and Medical services Acute on chronic resp failure - Recent hospitalization at [facility] in [place], [place] d/t resp failure d/t pneumonia and Influenza A on 07-21-22 - transferred to [facility] in [place], [place] on 07-31-22 - admitted to [facility] in mid Aug 2022 - Pulmonary HTN of undetermined etiology - on sildenafil and chronic oxygen at home (prior to admission) - followed by Dr. Kaur of pulmonary services in [place], [place] - deteriorating resp status requiring transfer to ICU on 09-02-22 [facility]. PAF with controlled vent response seen on tele of 08/23/22 (CHADSVASc score 6) - s/p pacemaker in 2019, followed by Dr Carpenter at [facility] - had been on apixaban for stroke prophylaxis since 08/23/22 - stopped (by medical services) d/t episode of hematuria - resumed on 08-28-22 - Echocardiogram of 09-02-22 showed LVEF 65-70%. Trivial AoR H/o HTN H/o HLD CARLA DM 2 H/o previous CVA - Alexa 2016 - treated at [place] - per pt source undetermined - no residual COPD H/o tobaccoism - quit 30 yrs ago Plan: * Pulm htn and ac on ch resp failure management is with the Med and ICU svce * Continue BB and dilt because of a h/o PAF * Resp failure does not appear to be primarily of cardiac origin (normal LVEF, normal BNP). * Advise transfer to tertiary care facility with pulmonology services - waiting on LTAC placement in [place] or [place] * Monitor labs EMETERIO HUYNH Sep 10, 2022 10:49
[2022-09-10] MEDS: UMECLIDINIUM BROMIDE (INCRUSE ELLIPTA) 7'S IH SCH (11:01)
--- NOTE | 2022-09-10 11:53 | Physical Therapy Daily Note ---
PT Daily Note-Current Subjective Patient in bed pre tx, agrees to PT, has no complaints of pain. Pain Section J - Health Conditions 1. Rarely or not at all 2. Occasionally 3. Frequently 4. Almost constantly 8. Unable to answer Pain Effect on Sleep: 1 Pain Interference with Therapy: 1 Pain Interference w/Day-to-Day: 1 Appearance Patient in bed post tx with nurse call, phone, tray, all needs met. Mental Status Patient Orientation: Person, Place, Situation Attachments: Oxygen (vapotherm) Transfers SCALE: Activities may be completed with or without assistive devices. 3-Viclvmbyig-aioyhqa completes the activity by him/herself with no assistance from a helper. 5-Set-up or Clean-up Assistance-helper sets up or cleans up; patient completes activity. [place] assists only prior to or following the activity. 4-Supervision or Touching Assistance-helper provides verbal cues and/or touching/steadying and/or contact guard assistance as patient completes activity. Assistance may be provided throughout the activity or intermittently. 3-Partial/Moderate Assistance-helper does LESS THAN HALF the effort. [place] lifts, holds or supports trunk or limbs, but provides less than half the effort. 2-Substantial/Maximal Assistance-helper does MORE THAN HALF the effort. [place] lifts or holds trunk or limbs and provides more than half the effort. 6-Bpzmvxepd-xzrpgd does ALL the effort. Patient does none of the effort to compl ete the activity. Or, the assistance of 2 or more helpers is required for the patient to complete the activity. If activity was not attempted, code reason: 7-Patient Refused. 9-Not Applicable-not attempted and the patient did not perform the activity before the current illness, exacerbation or injury. 10-Not Attempted due to Environmental Limitations-(lack of equipment, weather restraints, etc.). 88-Not Attempted due to Medical Conditions or Safety Concerns. Roll Left & Right (QC): 4 Sit to Lying (QC): 4 (SBA) Lying to Sitting/Side of Bed(Q: 4 (SBA) Sit to Stand (QC): 4 (CGA) Gait Training Distance: 5' Gait Assistive Device: FWW patient has very limited distance due to his short vapotherm line Exercises Seated Therapy Exercises: Ankle pumps, Long arc quads Seated Reps: 20 Standing: Heel/toe raises, Mini squats Standing Reps: 10 Treatments LE strengthening Assessment Current Status: Fair Progress O2 drops to 83% with activity, takes a significant amount of time to return to 90% PT Group Home Goals Group Home Goals PT Dray Driver Goals Time Frame: Sep 20, 2022 Roll Left & Right (QC): 6 Sit to Lying (QC): 6 Lying-Sitting on Side/Bed(QC): 6 Sit to Stand (QC): 6 Chair/Zak-kb-Jkwme Xfer(QC): 6 Toilet Transfer (QC): 6 Walk 10 feet (QC): 4 Walk 50ft with 2 Turns (QC): 4 PT Plan Problem List Problem List: Activity Tolerance, Functional Strength, Safety, Balance, Gait, Transfer, Bed Mobility, ROM Treatment/Plan Treatment Plan: Continue Plan of Care Treatment Plan: Bed Mobility, Education, Functional Activity Cece, Functional Strength, Gait, Safety, Therapeutic Exercise, Transfers Treatment Duration: Sep 20, 2022 Frequency: 6 times per week Estimated Hrs Per Day: .25 hour per day Patient and/or Family Agrees t: Yes Safety Risks/Education Patient Education: Gait Training, Correct Positioning, Safety Issues Teaching Recipient: Patient Teaching Methods: Demonstration, Discussion Response to Teaching: Reinforcement Needed Time Time In: 1125 Time Out: 1137 DATE: Sep 10, 2022 Total Billed Treatment Time: 12 Total Billed Treatment 1 visit EX RAVI WEBER PT Sep 10, 2022 11:53
--- NOTE | 2022-09-10 12:35 | Progress Note ---
JARETJulissaHARJINDER LAURENT 09/10/22 1235: Subjective Date Seen by a Provider: Sep 10, 2022 Time Seen by a Provider: 08:00 Subjective/Events-last exam Upon follow-up for AoC respiratory failure and Afib with RVR, Gulshan is sitting upright in his recliner with his Vapotherm in place (25% O2, FiO2 60%). He st ates that his appetite continues to be intact, and has no complaints of pain aside from a mild headache from the BiPAP mask. He states that he slept well, and his breathing feels the same as the day before. He denies having a bowel movement since Thursday. Gulshan denies fever, chills, nausea, and vomiting. Review of Systems HEENT: Head Aches (mild, resolved with Tylenol) Pulmonary: Dyspnea Gastrointestinal: No: Nausea, Vomiting Genitourinary: No Dysuria, No Frequency Musculoskeletal: No: neck pain, shoulder pain Neurological: Weakness; No: Change in speech Objective Exam Last Set of Vital Signs Vital Signs Date Time Temp Pulse Resp B/P (MAP) Pulse Ox O2 Delivery O2 Flow Rate FiO2 09/10/22 11:48 36.3 92 20 118/75 (89) 93 Vapotherm 09/10/22 11:05 25.00 71 Capillary Refill : Less Than 3 Seconds I&O Intake and Output 09/10/22 00:00 Intake Total 1450 ml Output Total 426 ml Balance 1024 ml Intake Oral 1450 ml Output Urine Total 426 ml # Urine Diapers 2 General: Alert, Oriented X3, Cooperative, No Acute Distress HEENT: Atraumatic, PERRLA, EOMI Neck: Supple, No JVD Lungs: Clear to Auscultation, Other (decreased breath sounds) Heart: Regular Rate Abdomen: Soft, No Tenderness Extremities: No Cyanosis, Normal Pulses Skin: No Significant Lesion Neuro: Normal Speech, Strength at 5/5 X4 Ext Psych/Mental Status: Mood NL Results Lab Laboratory Tests 09/09/22 15:15: Glucometer 273H 09/09/22 20:34: Glucometer 168H 09/10/22 03:25: White Blood Count 10.2, Red Blood Count 4.31, Hemoglobin 14.0, Hematocrit 41, Mean Corpuscular Volume 94, Mean Corpuscular Hemoglobin 33, Mean Corpuscular Hemoglobin Concent 35, Red Cell Distribution Width 14.3, Platelet Count 180, Mean Platelet Volume 9.9, Immature Granulocyte % (Auto) 6, Neutrophils (%) (Auto) 83H, Lymphocytes (%) (Auto) 5L, Monocytes (%) (Auto) 6, Eosinophils (%) (Auto) 0, Basophils (%) (Auto) 0, Neutrophils # (Auto) 8.5H, Lymphocytes # (Auto) 0.5L, Monocytes # (Auto) 0.6, Eosinophils # (Auto) 0.0, Basophils # (Auto) 0.0, Immature Granulocyte # (Auto) 0.6H, Sodium Level 137, Potassium Leve l 4.4, Chloride Level 100, Carbon Dioxide Level 28, Anion Gap 9, Blood Urea Nitrogen 25H, Creatinine 0.84, Estimat Glomerular Filtration Rate 90, BUN/Creatinine Ratio 30, Glucose Level 194H, Calcium Level 8.4L, Corrected Calcium 9.2, Magnesium Level 2.3, Total Bilirubin 1.0, Aspartate Amino Transf (AST/SGOT) 20, Alanine Aminotransferase (ALT/SGPT) 55, Alkaline Phosphatase 51, Total Protein 5.7L, Albumin 3.0L 09/10/22 03:28: Blood Gas Puncture Site LRAD, Blood Gas Patient Temperature 36.6, Arterial Blood pH 7.45H, Arterial Blood Partial Pressure CO2 47H, Arterial Blood Partial Pressure O2 80, Arterial Blood HCO3 32H, Arterial Blood Total CO2 33.4H, Arterial Blood Oxygen Saturation 97, Arterial Blood Base Excess 7.7H, Andrea Test YES-POS, Blood Gas Ventilator Setting NO, Blood Gas Inspired Oxygen 50% 09/10/22 10:48: Glucometer 274H Radiology Date of Exam:09/10/22 CHEST 1 VIEW, AP/PA ONLY INDICATION: Dyspnea. Comparison is made with prior examination 09/08/2022. FINDINGS: There is cardiomegaly. There is some venous congestion. There is more diffuse bilateral airspace disease. There is no pleural effusion or pneumothorax. Mediastinum is unremarkable. Pacemaker overlies left hemithorax. IMPRESSION: Cardiomegaly and some venous congestion with questionable more diffuse bilateral airspace disease. Recommend clinical correlation. Assessment/Plan Assessment/Plan Assess & Plan/Chief Complaint AoC Respiratory failure Pulmonary Fibrosis Pulmonary Hypertension COPD -On vapotherm Present oxygen requirement poses challenge to placement Present goal is to attempt weaning supplemental oxygen -Fluid restriction to 1500 ml/day -Bumex -IS 10x/hr -Duoneb PRN, Incruse Ellipta Inhaler, and Albuterol -On Sildenafil -On Solumedrol Afib with RVR -S/P pacemaker placement (2019) -Cardiology consulted and appreciated -On Eliquis and Lopressor - PO Diltiazem in addition to 125ml IVP @ 5mls/hr -Did have an echocardiogram, which revealed an LVEF of 65-70%, with no major abnormalities noted -Tachycardia is improving, ranging from 80s-100s over the past 12 hours -Given improved rate control, referrals have been sent to [facility] in [place] and , [facility] and [facility] -Presently SS is waiting to hear back from the above locations regarding long-term placement -[facility] has rejected application -Referrals were sent to [place] and [facility] in -SS is following -PICC line placement d/t long-term care needs CARLA -BiPAP -Is not tolerating well General debility -Consider PT/OT R MCA CVA, 2017 - Still has position deficits in leg, motor and strength almost back to normal -On Plavix, Aspirin, Zetia, and Lipitor HTN -On Lopressor HLD -On Zetia DM2 -Diabetic diet -On Novolog sliding scale GI PPX -Protonix LIYAH GABRIEL DO 09/11/22 0441: Assessment/Plan Assessment/Plan Assess & Plan/Chief Complaint LTAC later this week Supervisory-Addendum Brief Verification & Attestation Participated in pt care: history, MDM, physical Personally performed: exam, history, MDM, supervision of care Care discussed with: Medical Student Procedures: n/a Results interpretation: Verified all documentation Verification and Attestation of Medical Student E/M Service A medical student performed and documented this service in my presence. I reviewed and verified all information documented by the medical student and made modifications to such information, when appropriate. I personally performed the physical exam and medical decision making. Liyah Gabriel, Sep 11, 2022,04:41 HARJINDER OLEARY Sep 10, 2022 12:35 LIYAH GABRIEL DO Sep 11, 2022 04:41
--- NOTE | 2022-09-10 13:03 | Occupational Ther Daily Note ---
OT Current Status-Daily Note Subjective Resting in bed, request use of BSC. RN brought in BSC Mental Status/Objective Patient Orientation: Person, Place, Time, Situation Attachments: Oxygen ((vapotherm)) ADL-Treatment RN provided BSC, none in room, lines restrict use of bathroom Therapy Code Descriptions/Definitions Functional [place] Measure: 0=Not Assessed/NA 4=Minimal Assistance 1=Total Assistance 5=Supervision or Setup 2=Maximal Assistance 6=Modified [place] 3=Moderate Assistance 7=Complete IndependenceSCALE: Activities may be completed with or without assistive devices. 7-Piqrsuffhl-hdzmvlg completes the activity by him/herself with no assistance from a helper. 5-Set-up or Clean-up Assistance-helper sets up or cleans up; patient completes activity. [place] assists only prior to or following the activity. 4-Supervision or Touching Assistance-helper provides verbal cues and/or touching/steadying and/or contact guard assistance as patient completes activity. Assistance may be provided throughout the activity or intermittently. 3-Partial/Moderate Assistance-helper does LESS THAN HALF the effort. [place] lifts, holds or supports trunk or limbs, but provides less than half the effort. 2-Substantial/Maximal Assistance-helper does MORE THAN HALF the effort. [place] lifts or holds trunk or limbs and provides more than half the effort. 1-Hycsjplpq-axhunq does ALL the effort. Patient does none of the effort to compl ete the activity. Or, the assistance of 2 or more helpers is required for the patient to complete the activity. If activity was not attempted, code reason: 7-Patient Refused. 9-Not Applicable-not attempted and the patient did not perform the activity before the current illness, exacerbation or injury. 10-Not Attempted due to Environmental Limitations-(lack of equipment, weather restraints, etc.). 88-Not Attempted due to Medical Conditions or Safety Concerns. Eating (QC): 6 (ordered lunch in person, observed pt eat snacks at table) Oral Hygiene (QC): 5 Shower/Bathe Self (QC): 88 Upper Body Dressing (QC): 4 Lower Body Dressing (QC): 4 On/Off Footwear: 4 Toileting Hygiene (QC): 3 Toilet Transfer (QC): 4 Other Treatment Stood EOB w/ FWW 3 minutes 40 seconds, and 3 minutes 20 seconds. APU bleeding and pt stood w/ OT for wound dressing provided by nurse Education OT Patient Education: Correct positioning, Modified ADL techniques, Progress toward Goal/Update tx plan, Purpose of tx/functional activities, Reviewed precautions, Rehab process, Safety issues, Transfer techniques, Use of adapted equipment Teaching Recipient: Patient Teaching Methods: Demonstration, Discussion Response to Teaching: Verbalize Understanding, Return Demonstration, Reinforcement Needed OT Staffing Rn Goals Staffing Rn Goals Eating (QC): 6 Oral Hygiene (QC): 6 Toileting Hygiene (QC): 6 Shower/Bathe Self (QC): 6 Upper Body Dressing (QC): 6 Lower Body Dressing (QC): 6 On/Off Footwear (QC): 6 1=Demonstrate adherence to instructed precautions during ADL tasks. 2=Patient will verbalize/demonstrate understanding of assistive devices/modifications for ADL. 3=Patient will improve strength/tolerance for activity to enable patient to perform ADL's. OT Education/Plan Problem List/Assessment Assessment: Decreased Activ Tolerance, Decreased UE Strength, Impaired Funct Balance, Impaired Self-Care Skills Discharge Recommendations Plan/Recommendations: Continue POC Therapy Discharge Recommendati: Post Acute OT Treatment Plan/Plan of Care Treatment,Training & Education: Yes Patient would benefit from OT for education, treatment and training to promote independence in ADL's, mobility, safety and/or upper extremity function for ADL's. Plan of Care: ADL Retraining, Cognitive Retraining, Concurrent Therapy, Functional Mobility, Group Exercise/Act as Ind Treatment Duration: Sep 13, 2022 Frequency: 3 times per week (3-5 times per week) Estimated Hrs Per Day: .25 hour per day Agreement: Yes Rehab Potential: Guarded Remain on BSC w/ nurse Time Start Time: 10:01 Stop Time: 10:25 DATE: Sep 10, 2022 Total Time Billed (hr/min): 24 Billed Treatment Time 1 visit ADLS 2 24 minutes IRWIN SPEAR OT Sep 10, 2022 13:03
--- NOTE | 2022-09-10 19:23 | Progress Note - Cardiology ---
Cardiology SOAP Progress Note Subjective: No cp or palp or syncope No shortness of breath at rest but present with activity No n/v/d No focal weakness Gen weakness present Objective: I&O/Vital Signs 09/10/22 09/10/22 09/10/22 09/10/22 07:58 09:00 11:01 11:05 Temp 36.9 Pulse 83 Resp 20 B/P (MAP) 141/88 (105) Pulse Ox 95 94 97 97 O2 Delivery Vapotherm Vapotherm Vapotherm Vapotherm O2 Flow Rate 25.00 25.00 25.00 FiO2 60 71 71 09/10/22 09/10/22 09/10/22 09/10/22 11:48 12:48 15:03 15:04 Temp 36.3 Pulse 92 90 Resp 20 B/P (MAP) 118/75 (89) Pulse Ox 93 96 96 O2 Delivery Vapotherm Vapotherm Vapotherm O2 Flow Rate 25.00 25.00 FiO2 60 60 09/10/22 09/10/22 16:48 18:58 Temp 36.5 Pulse 92 Resp 28 B/P (MAP) 109/80 (90) Pulse Ox 95 97 O2 Delivery Vapotherm O2 Flow Rate 25.00 FiO2 60 09/10/22 00:00 Intake Total 1450 ml Output Total 425 ml Balance 1025 ml Constitutional: AAO x 3, well-developed, well-nourished Respiratory: No accessory muscle use, No respiratory distress; chest expansion is symmetric, chest is bilaterally symmetric, other (diminished throughout; dy spneic with simple conversation) Cardiovascular: regular rate-rhythm, tachycardia, systolic murmur (soft ELDER at card base) Gastrointestional: No tender; soft, audible bowel sounds Extremities: No significant edema Neurologic/Psychiatric: oriented x 3, other (moves all limbs equally) Skin: normal color, warm/dry Results/Procedures: Labs Laboratory Tests 09/09/22 20:34: Glucometer 168H 09/10/22 03:25: White Blood Count 10.2, Red Blood Count 4.31, Hemoglobin 14.0, Hematocrit 41, Mean Corpuscular Volume 94, Mean Corpuscular Hemoglobin 33, Mean Corpuscular He moglobin Concent 35, Red Cell Distribution Width 14.3, Platelet Count 180, Mean Platelet Volume 9.9, Immature Granulocyte % (Auto) 6, Neutrophils (%) (Auto) 83H , Lymphocytes (%) (Auto) 5L, Monocytes (%) (Auto) 6, Eosinophils (%) (Auto) 0, Basophils (%) (Auto) 0, Neutrophils # (Auto) 8.5H, Lymphocytes # (Auto) 0.5L, Monocytes # (Auto) 0.6, Eosinophils # (Auto) 0.0, Basophils # (Auto) 0.0, Immature Granulocyte # (Auto) 0.6H, Sodium Level 137, Potassium Level 4.4, Chloride Level 100, Carbon Dioxide Level 28, Anion Gap 9, Blood Urea Nitrogen 25H, Creatinine 0.84, Estimat Glomerular Filtration Rate 90, BUN/Creatinine Ratio 30, Glucose Level 194H, Calcium Level 8.4L, Corrected Calcium 9.2, Magnesium Level 2.3, Total Bilirubin 1.0, Aspartate Amino Transf (AST/SGOT) 20, Alanine Aminotransferase (ALT/SGPT) 55, Alkaline Phosphatase 51, Total Protein 5.7L, Albumin 3.0L 09/10/22 03:28: Blood Gas Puncture Site LRAD, Blood Gas Patient Temperature 36.6, Arterial Blood pH 7.45H, Arterial Blood Partial Pressure CO2 47H, Arterial Blood Partial Pressure O2 80, Arterial Blood HCO3 32H, Arterial Blood Total CO2 33.4H, Arterial Blood Oxygen Saturation 97, Arterial Blood Base Excess 7.7H, Andrea Test YES-POS, Blood Gas Ventilator Setting NO, Blood Gas Inspired Oxygen 50% 09/10/22 10:48: Glucometer 274H 09/10/22 15:40: Glucometer 346H 09/10/22 16:20: Glucometer 291H Laboratory Tests 09/09/22 03:34 09/10/22 03:25 A/P: Assessment: Interstitial lung disease vs other pulmonary causes of pulmonary hypertension - management per eICU and Medical services Acute on chronic resp failure - Recent hospitalization at [facility] in [place], [place] d/t resp failure d/t pneumonia and Influenza A on 07-21-22 - transferred to [facility] in [place], [place] on 07-31-22 - admitted to [facility] Rehab in mid Aug 2022 - Pulmonary HTN of undetermined etiology - on sildenafil and chronic oxygen at home (prior to admission) - followed by Dr. Kaur of pulmonary services in [place], [place] - deteriorating resp status requiring transfer to ICU on 09-02-22 [facility]SS. PAF with controlled vent response seen on tele of 08/23/22 (CHADSVASc score 6) - s/p pacemaker in 2019, followed by Dr Carpenter at [facility] [place] - had been on apixaban for stroke prophylaxis since 08/23/22 - stopped (by medical services) d/t episode of hematuria - resumed on 08-28-22 - Echocardiogram of 09-02-22 showed LVEF 65-70%. Trivial AoR H/o HTN H/o HLD CARLA DM 2 H/o previous CVA - Alexa 2016 - treated at [facility] - per pt source undetermined - no residual COPD H/o tobaccoism - quit 30 yrs ago Plan: * Pulm htn and ac on ch resp failure management is with the Med and ICU svce * Continue BB and dilt because of a h/o PAF * Resp failure does not appear to be primarily of cardiac origin (normal LVEF, normal BNP). * Advise transfer to tertiary care facility with pulmonology services - waiting on LTAC placement in [place] or [place] * Monitor labs EDUARDO LANE MD FACP FAC CCDS Sep 10, 2022 19:23
[2022-09-10] MEDS: eZETimibe 10 MG (ZETIA) TABLET PO SCH (20:31)
[2022-09-10] MEDS: LORazepam INJ 2 MG/ML (ATIVAN) VIAL IVP PRN ×2 (20:32→23:40)
[2022-09-10 21:17] VITALS: BP 114/75
[2022-09-11] MEDS: RT-ALBUTEROL SULF 2.5 MG/3 ML PRE-MIX VIAL INH SCH ×6 (01:27→22:50)
[2022-09-11] MEDS: RT-IPRATROPIUM (ATROVENT) 0.5MG/2.5ML AMP IH SCH ×6 (01:28→22:50)
[2022-09-11 03:38] LABS: BASOPHILS % (AUTO) 0 % (0-10); EOSINOPHILS % (AUTO) 0 % (0-10); HEMATOCRIT 41 % (40-54); HEMOGLOBIN 14.1 g/dL (13.3-17.7); LYMPHOCYTES # (AUTO) 0.8 10^3/uL (1.0-4.0); LYMPHOCYTES % (AUTO) 6 % (12-44); MEAN CORPUSCULAR HEMOGLOBIN 33 pg (25-34); MEAN CORPUSCULAR HGB CONC 35 g/dL (32-36); MEAN CORPUSCULAR VOLUME 94 fL (80-99); MEAN PLATELET VOLUME 9.9 fL (9.0-12.2); MONOCYTES # (AUTO) 1.3 10^3/uL (0.0-1.0); MONOCYTES % (AUTO) 10 % (0-12); NEUTROPHILS # (AUTO) 10.5 10^3/uL (1.8-7.8); NEUTROPHILS % (AUTO) 79 % (42-75); PLATELET COUNT 179 10^3/uL (130-400); WHITE BLOOD COUNT 13.3 10^3/uL (4.3-11.0)
[2022-09-11 03:47] LABS: POTASSIUM 4.3 MMOL/L (3.6-5.0)
[2022-09-11 03:48] LABS: CALCIUM 8.6 MG/DL (8.5-10.1)
[2022-09-11 03:49] LABS: TOTAL PROTEIN 5.6 GM/DL (6.4-8.2)
[2022-09-11 03:51] LABS: BILIRUBIN,TOTAL 0.8 MG/DL (0.1-1.0)
[2022-09-11 03:53] LABS: CREATININE SERUM 0.94 MG/DL (0.60-1.30)
[2022-09-11 03:56] LABS: MAGNESIUM 2.2 MG/DL (1.6-2.4)
[2022-09-11] MEDS: inSUlin ASPART (NovoLOG) 1 UNIT/0.01 ML (CHARGE PER UNIT) SC SCH ×4 (05:45→20:21)
[2022-09-11] MEDS: MULTIVIT W/MINERALS TAB (THERAGRAN M) PO SCH (06:20)
[2022-09-11] MEDS: PANTOPRAZOLE 40 MG (PROTONIX) TAB PO SCH (06:20)
[2022-09-11 07:58] VITALS: BP 114/75
[2022-09-11] MEDS: ASPIRIN 81 MG CHEW (CHILDREN'S ASA) PO SCH (08:11)
[2022-09-11] MEDS: methylPREDNISolone 40 MG/ML (Solu-MEDROL) VIAL IVP SCH (08:11)
[2022-09-11] MEDS: BUMETANIDE 1 MG (BUMEX) TAB PO SCH (08:11)
[2022-09-11] MEDS: SILDENAFIL 20 MG (REVATIO) TAB PO SCH (08:11)
[2022-09-11] MEDS: APIXABAN 5 MG (ELIQUIS) TABLET PO SCH ×2 (08:11→20:05)
[2022-09-11] MEDS: SENNOSIDES 8.6 MG (SENOKOT) TAB PO SCH ×2 (08:12→20:21)
[2022-09-11] MEDS: NEO/POLY/BAC (NEOSPORIN) OINT 15 GM TUBE TOP SCH ×2 (08:12→20:24)
[2022-09-11] MEDS: polyethylene glycoL POWDER 17 GM (MIRALAX) PACK PO SCH ×2 (08:12→20:28)
[2022-09-11] MEDS: meTOproloL SUCCINATE 50 MG (TOPROL XL) TAB PO SCH (08:12)
[2022-09-11] MEDS: SENNA W/DOCUSATE (SENOKOT S) TABLET PO SCH ×2 (08:12→20:21)
--- NOTE | 2022-09-11 08:41 | Diagnostic Imaging Report ---
Indication: Shortness of breath Portable chest 5:11 AM There is cardiomegaly with pulmonary vascular congestion. There are no infiltrates, effusions or pneumothoraces. Patient has a dual-chamber pacemaker. IMPRESSION: Pulmonary venous hypertension. No significant change compared to previous day. Dictated by: Dictated on workstation # [id number]
[2022-09-11] MEDS: UMECLIDINIUM BROMIDE (INCRUSE ELLIPTA) 7'S IH SCH (10:08)
--- NOTE | 2022-09-11 10:48 | Occupational Ther Daily Note ---
OT Current Status-Daily Note Subjective Pt reports going to soon for rehab, did not sleep well Mental Status/Objective Patient Orientation: Situation Attachments: IV, Oxygen ADL-Treatment Therapy Code Descriptions/Definitions Functional [place] Measure: 0=Not Assessed/NA 4=Minimal Assistance 1=Total Assistance 5=Supervision or Setup 2=Maximal Assistance 6=Modified [place] 3=Moderate Assistance 7=Complete IndependenceSCALE: Activities may be completed with or without assistive devices. 3-Ijopgcfmlw-bcwomnh completes the activity by him/herself with no assistance from a helper. 5-Set-up or Clean-up Assistance-helper sets up or cleans up; patient completes activity. [place] assists only prior to or following the activity. 4-Supervision or Touching Assistance-helper provides verbal cues and/or touc lb/steadying and/or contact guard assistance as patient completes activity. Assistance may be provided throughout the activity or intermittently. 3-Partial/Moderate Assistance-helper does LESS THAN HALF the effort. [place] lifts, holds or supports trunk or limbs, but provides less than half the effort. 2-Substantial/Maximal Assistance-helper does MORE THAN HALF the effort. [place] lifts or holds trunk or limbs and provides more than half the effort. 4-Kbixuxpzg-bgiyfj does ALL the effort. Patient does none of the effort to complete the activity. Or, the assistance of 2 or more helpers is required for the patient to complete the activity. If activity was not attempted, code reason: 7-Patient Refused. 9-Not Applicable-not attempted and the patient did not perform the activity before the current illness, exacerbation or injury. 10-Not Attempted due to Environmental Limitations-(lack of equipment, weather restraints, etc.). 88-Not Attempted due to Medical Conditions or Safety Concerns. Eating (QC): 6 Oral Hygiene (QC): 5 Shower/Bathe Self (QC): 7 (continues to decline task, OT recommend sponge bathing) Upper Body Dressing (QC): 4 Lower Body Dressing (QC): 3 On/Off Footwear: 4 Toileting Hygiene (QC): 7 (did not perform) Toilet Transfer (QC): 4 urinal on bed tray table Other Treatment Performed isometric ther ex focus RUE for improved ROM 02 stable 88-93. RN in to increase Vapotherm due to decreased SAO2 to 74% with minimal activity during bed to recliner transfer w/ FWW Education OT Patient Education: Correct positioning, Energy conservation, Exercise program, Modified ADL techniques, Progress toward Goal/Update tx plan, Purpose of tx/functional activities, Reviewed precautions, Rehab process, Safety issues, Transfer techniques, Use of adapted equipment Teaching Recipient: Patient Teaching Methods: Demonstration, Discussion Response to Teaching: Verbalize Understanding, Return Demonstration, Reinforcement Needed OT Fci Goals Fci Goals Eating (QC): 6 Oral Hygiene (QC): 6 Toileting Hygiene (QC): 6 Shower/Bathe Self (QC): 6 Upper Body Dressing (QC): 6 Lower Body Dressing (QC): 6 On/Off Footwear (QC): 6 1=Demonstrate adherence to instructed precautions during ADL tasks. 2=Patient will verbalize/demonstrate understanding of assistive devices/modifications for ADL. 3=Patient will improve strength/tolerance for activity to enable patient to perform ADL's. OT Education/Plan Problem List/Assessment Assessment: Decreased Activ Tolerance, Decreased Safety Aware, Decreased UE Strength, Impaired Coordination, Impaired Funct Balance, Impaired Self-Care Skills, Restricted Funct UE ROM Discharge Recommendations Plan/Recommendations: Continue POC Therapy Discharge Recommendati: Post Acute OT Treatment Plan/Plan of Care Treatment,Training & Education: Yes Patient would benefit from OT for education, treatment and training to promote independence in ADL's, mobility, safety and/or upper extremity function for ADL's. Plan of Care: ADL Retraining, Cognitive Retraining, Concurrent Therapy, Functional Mobility, Group Exercise/Act as Ind Comment patient remain up in recliner, all needs met w/PT Treatment Duration: Sep 13, 2022 Frequency: 3 times per week (3-5 times per week) Estimated Hrs Per Day: .25 hour per day Agreement: Yes Rehab Potential: Guarded Time Start Time: 10:21 Stop Time: 10:41 DATE: Sep 11, 2022 Total Time Billed (hr/min): 20 Billed Treatment Time 1 visit EX 1 20 min IRWIN SPEAR OT Sep 11, 2022 10:48
--- NOTE | 2022-09-11 11:00 | Progress Note - Cardiology ---
Cardiology SOAP Progress Note Subjective: Sitting up in recliner at the bedside Remains SOB, but states at rest he feels he's doing good Objective: I&O/Vital Signs 09/14/22 09/14/22 09/14/22 09/14/22 20:59 21:00 21:08 22:35 Pulse 87 87 86 81 Resp 13 20 33 18 B/P (MAP) Pulse Ox 95 94 99 O2 Delivery Vapotherm NIV Bilevel O2 Flow Rate 40.00 50.00 50.00 50.00 45.00 09/14/22 09/15/22 09/15/22 09/15/22 23:50 00:00 00:05 01:00 Temp 36.6 36.1 Pulse 71 84 85 Resp 18 B/P (MAP) 133/88 (103) Pulse Ox 98 97 O2 Delivery NIV Bilevel FiO2 40 09/15/22 09/15/22 09/15/22 09/15/22 02:53 04:00 06:10 07:18 Temp 36.2 Pulse 83 82 92 Resp 21 24 B/P (MAP) 120/75 (90) Pulse Ox 96 96 O2 Delivery Vapotherm Vapotherm O2 Flow Rate 50.00 30.00 30.00 45.00 FiO2 45 09/15/22 00:00 Intake Total 1030 ml Balance 1030 ml Constitutional: AAO x 3, well-developed, well-nourished Respiratory: No accessory muscle use, No respiratory distress; chest expansion is symmetric, chest is bilaterally symmetric, other (diminished throughout; dyspneic with simple conversation) Cardiovascular: regular rate-rhythm, tachycardia, systolic murmur (soft ELDER at card base) Gastrointestional: No tender; soft, audible bowel sounds Extremities: No significant edema Neurologic/Psychiatric: oriented x 3, other (moves all limbs equally) Skin: normal color, warm/dry Results/Procedures: Labs Laboratory Tests 09/14/22 08:47: Glucometer 201H 09/14/22 16:03: Glucometer 361H 09/14/22 21:19: Glucometer 143H 09/15/22 06:22: Glucometer 134H A/P: Assessment: Interstitial lung disease vs other pulmonary causes of pulmonary hypertension - management per eICU and Medical services Acute on chronic resp failure - Recent hospitalization at [facility] in [place], [place] d/t resp failure d/t pneumonia and Influenza A on 07-21-22 - transferred to [facility] in [place], [place] on 07-31-22 - admitted to [facility] Rehab in mid Aug 2022 - Pulmonary HTN of undetermined etiology - on sildenafil and chronic oxygen at home (prior to admission) - followed by Dr. Kaur of pulmonary services in [place], [place] - deteriorating resp status requiring transfer to ICU on 09-02-22 [facility]. PAF with controlled vent response seen on tele of 08/23/22 (CHADSVASc score 6) - s/p pacemaker in 2019, followed by Dr Carpenter at [facility] - had been on apixaban for stroke prophylaxis since 08/23/22 - stopped (by medical services) d/t episode of hematuria - resumed on 08-28-22 - Echocardiogram of 09-02-22 showed LVEF 65-70%. Trivial AoR H/o HTN H/o HLD CARLA DM 2 H/o previous CVA - Alexa2016 - treated at [place] - per pt source undetermined - no residual COPD H/o tobaccoism - quit 30 yrs ago Plan: * Pulm htn and ac on ch resp failure management is with the Med and ICU svce * Continue current medication regimen * Resp failure does not appear to be primarily of cardiac origin (normal LVEF, normal BNP). * Advise transfer to tertiary care facility with pulmonology services - waiting on LTAC placement in [place] or [place] * Monitor labs EMETERIO HUYNH Sep 11, 2022 11:00
--- NOTE | 2022-09-11 11:24 | Physical Therapy Daily Note ---
PT Daily Note-Current Subjective Patient agrees to PT. Currently with OT finishing session. Pain Section J - Health Conditions 1. Rarely or not at all 2. Occasionally 3. Frequently 4. Almost constantly 8. Unable to answer Pain Effect on Sleep: 1 Pain Interference with Therapy: 1 Pain Interference w/Day-to-Day: 1 Mental Status Patient Orientation: Normal For Age Attachments: Oxygen (vapotherm 25/50) Transfers SCALE: Activities may be completed with or without assistive devices. 7-Qctpdrhjcc-rkojavg completes the activity by him/herself with no assistance from a helper. 5-Set-up or Clean-up Assistance-helper sets up or cleans up; patient completes activity. [place] assists only prior to or following the activity. 4-Supervision or Touching Assistance-helper provides verbal cues and/or touching/steadying and/or contact guard assistance as patient completes activity. Assistance may be provided throughout the activity or intermittently. 3-Partial/Moderate Assistance-helper does LESS THAN HALF the effort. [place] lifts, holds or supports trunk or limbs, but provides less than half the effort. 2-Substantial/Maximal Assistance-helper does MORE THAN HALF the effort. [place] lifts or holds trunk or limbs and provides more than half the effort. 9-Dguyibiqe-ezykjj does ALL the effort. Patient does none of the effort to complete the activity. Or, the assistance of 2 or more helpers is required for the patient to complete the activity. If activity was not attempted, code reason: 7-Patient Refused. 9-Not Applicable-not attempted and the patient did not perform the activity before the current illness, exacerbation or injury. 10-Not Attempted due to Environmental Limitations-(lack of equipment, weather restraints, etc.). 88-Not Attempted due to Medical Conditions or Safety Concerns. Lying to Sitting/Side of Bed(Q: 4 Sit to Stand (QC): 4 Chair/Nhq-on-Ljztp Xfer(QC): 4 Exercises Seated Therapy Exercises: Sit to stand Seated Reps: 3 (standing for 1 min each) Assessment Patient's SAO2 decreases to 75% with OOB activity with nursing present to turn vapotherm up to 25/65. Patient requires time to recover. PT to continue to increase activity as tolerated by patient. PT Patient Financial Counselor Goals Patient Financial Counselor Goals PT Patient Financial Counselor Goals Time Frame: Sep 20, 2022 Roll Left & Right (QC): 6 Sit to Lying (QC): 6 Lying-Sitting on Side/Bed(QC): 6 Sit to Stand (QC): 6 Chair/Yxs-as-Zhkrw Xfer(QC): 6 Toilet Transfer (QC): 6 Walk 10 feet (QC): 4 Walk 50ft with 2 Turns (QC): 4 PT Plan Treatment/Plan Treatment Plan: Continue Plan of Care Treatment Plan: Bed Mobility, Education, Functional Activity Cece, Functional Strength, Gait, Safety, Therapeutic Exercise, Transfers Treatment Duration: Sep 20, 2022 Frequency: 6 times per week Estimated Hrs Per Day: .25 hour per day Patient and/or Family Agrees t: Yes Time Time In: 1030 Time Out: 1042 DATE: Sep 11, 2022 Total Billed Treatment Time: 12 Total Billed Treatment 1 visit FA 12 min ISAIAH RUIZ PT Sep 11, 2022 11:24
--- NOTE | 2022-09-11 14:45 | Progress Note ---
ANDREINA MARKS 09/11/22 1445: Subjective Date Seen by a Provider: Sep 11, 2022 Time Seen by a Provider: 09:29 Subjective/Events-last exam Gulshan Umanzor is a 77 yo M admitted for Acute on Chronic Respiratory Failure and AF with RVR. This morning Gulshan is sitting up in bed watching television and is A&O x3. He is a very pleasant gentleman. Attempts at ABGs today were unsuccessful. His labs remain stable. O2 sats are 95-99 with Vapotherm (rate = 25-30 L/min, FiO2 = 60-70%). Patient has been accepted to [facility] but is waiting for an open bed at this time. He is on BB and Dilt for PAF. Denies pain or concerns. Reports he feels he is breathing okay. He has a good appetite. Last BM was reportedly yesterday. He has not been ambulating due to being connected to Vapotherm lines. He has been working with PT/OT and showing slow improvements. Review of Systems General: No Chills; Appetite (good) HEENT: Head Aches; No Visual Changes, No Dysphasia Pulmonary: Dyspnea Cardiovascular: No: Chest Pain, Palpitations Gastrointestinal: No: Nausea, Vomiting, Abdominal Pain Genitourinary: No Dysuria, No Hematuria Objective Exam Last Set of Vital Signs Vital Signs Date Time Temp Pulse Resp B/P (MAP) Pulse Ox O2 Delivery O2 Flow Rate FiO2 09/11/22 14:26 98 Vapotherm 25.00 65 09/11/22 12:52 92 09/11/22 12:00 16 100/76 (84) 09/11/22 07:58 36.6 Capillary Refill : Less Than 3 Seconds I&O Intake and Output 09/11/22 00:00 Intake Total 1375 ml Output Total 1375 ml Balance 0 ml Intake Oral 1375 ml Output Urine Total 1375 ml # Urine Diapers 1 General: Alert, Oriented X3, Cooperative, No Acute Distress HEENT: PERRLA, EOMI, Mucous Memb Moist/[place] Neck: Supple Lungs: Other (decreased air movement / accessory muscle use) Heart: Normal S1, Normal S2, No Murmurs Abdomen: Normal Bowel Sounds, No Tenderness Extremities: No Clubbing, No Cyanosis Psych/Mental Status: Mental Status NL, Mood NL Results Lab Laboratory Tests 09/10/22 15:40: Glucometer 346H 09/10/22 16:20: Glucometer 291H 09/10/22 20:33: Glucometer 248H 09/11/22 03:18: White Blood Count 13.3H, Red Blood Count 4.30, Hemoglobin 14.1, Hematocrit 41, Mean Corpuscular Volume 94, Mean Corpuscular Hemoglobin 33, Mean Corpuscular Hemoglobin Concent 35, Red Cell Distribution Width 14.6H, Platelet Count 179, Mean Platelet Volume 9.9, Immature Granulocyte % (Auto) 5, Neutrophils (%) (Auto) 79H, Lymphocytes (%) (Auto) 6L, Monocytes (%) (Auto) 10, Eosinophils (%) (Auto) 0, Basophils (%) (Auto) 0, Neutrophils # (Auto) 10.5H, Lymphocytes # (Auto) 0.8L, Monocytes # (Auto) 1.3H, Eosinophils # (Auto) 0.0, Basophils # (Auto) 0.0, Immature Granulocyte # (Auto) 0.7H, Sodium Level 135, Potassium Level 4.3, Chloride Level 99, Carbon Dioxide Level 27, Anion Gap 9, Blood Urea Nitrogen 25H, Creatinine 0.94, Estimat Glomerular Filtration Rate 84, BUN/Creatinine Ratio 27, Glucose Level 177H, Calcium Level 8.6, Corrected Calcium 9.4, Magnesium Level 2.2, Total Bilirubin 0.8, Aspartate Amino Transf (AST/SGOT) 17, Alanine Aminotransferase (ALT/SGPT) 45, Alkaline Phosphatase 55, Total Protein 5.6L, Albumin 3.0L 09/11/22 11:20: Glucometer 348H Radiology NAME: GULSHAN UMANZOR [facility] REC#: [id number] PT STATUS: ADM IN : 1945 PHYSICIAN: LIYAH GABRIEL DO ADMIT DATE: 09/01/22/DANIEL Signed Date of Exam:09/11/22 CHEST 1 VIEW, AP/PA ONLY Indication: Shortness of breath Portable chest 5:11 AM There is cardiomegaly with pulmonary vascular congestion. There are no infiltrates, effusions or pneumothoraces. Patient has a dual-chamber pacemaker. IMPRESSION: Pulmonary venous hypertension. No significant change compared to previous day. Dictated by: Dictated on workstation # [id number] Dict: 09/11/22825 Trans: 09/11/22918 [facility] [phone] Interpreted by: DARRELL COLLINS MD Electronically signed by: DARRELL COLLINS MD 09/11/22918 Assessment/Plan Assessment/Plan Assess & Plan/Chief Complaint Assessment and Plan: AoC Respiratory failure Pulmonary Fibrosis Pulmonary Hypertension COPD -On vapotherm Present oxygen requirement poses challenge to placement Present goal is to attempt weaning supplemental oxygen -Fluid restriction to 1500 ml/day -Bumex -IS 10x/hr -Duoneb PRN, Incruse Ellipta Inhaler, and Albuterol -On Sildenafil -On Solumedrol Afib with RVR -S/P pacemaker placement (2018) -Cardiology consulted and appreciated -On Eliquis and Lopressor - PO Diltiazem in addition to 125ml IVP @ 5mls/hr -Did have an echocardiogram, which revealed an LVEF of 65-70%, with no major abnormalities noted -Tachycardia is improving, staying in the 80s-90s -Given improved rate control, pt has been accepted to [facility] -SS is following -PICC line placement d/t long-term care needs CARLA -BiPAP -Is not tolerating well General debility -Consider PT/OT R MCA CVA, 2017 - Still has position deficits in leg, motor and strength almost back to normal -On Plavix, Aspirin, Zetia, and Lipitor HTN -On Lopressor HLD -On Zetia DM2 -Diabetic diet -On Novolog sliding scale GI PPX -Protonix Clinical Quality Measures Admission Status Admission Dx COPD exacerbation On BIPAP 50% flow rate Pulmonary Fibrosis Chest x-ray this morning Tachycardia HR sustained in the 140s/150s Atrial fibrillation Managed with Diltiazem and Metoprolol Pacemaker in place Hypertension Hyperlipidemia LIYAH GABRIEL DO 09/12/22 0516: Supervisory-Addendum Brief Verification & Attestation Participated in pt care: history, MDM, physical Personally performed: exam, history, MDM, supervision of care Care discussed with: Medical Student Procedures: n/a Results interpretation: Verified all documentation Verification and Attestation of Medical Student E/M Service A medical student performed and documented this service in my presence. I reviewed and verified all information documented by the medical student and made modifications to such information, when appropriate. I personally performed the physical exam and medical decision making. Liyah Gabriel, Sep 12, 2022,05:15 ANDREINA MARKS Sep 11, 2022 14:45 LIYAH GABRIEL DO Sep 12, 2022 05:16
--- NOTE | 2022-09-11 16:55 | Progress Note - Cardiology ---
Cardiology SOAP Progress Note Subjective: No cp or palp or syncope Shortness of breath with activity No n/v/d No focal weakness Gen weakness present Objective: I&O/Vital Signs 09/11/22 09/11/22 09/11/22 09/11/22 06:36 06:53 06:56 07:00 Pulse 86 Pulse Ox 100 99 97 O2 Delivery Vapotherm Vapotherm Vapotherm O2 Flow Rate 30.00 30.00 30.00 70.00 FiO2 70 70 09/11/22 09/11/22 09/11/22 09/11/22 07:58 08:00 08:10 08:33 Temp 36.6 Pulse 80 84 Resp 16 B/P (MAP) 113/75 (88) Pulse Ox 99 99 95 96 O2 Delivery Vapotherm Vapotherm Vapotherm O2 Flow Rate 25.00 25.00 25.00 60.00 FiO2 70 60 60 09/11/22 09/11/22 09/11/22 09/11/22 10:08 10:13 10:14 12:00 Pulse 124 Resp 16 B/P (MAP) 100/76 (84) Pulse Ox 97 95 94 95 O2 Delivery Vapotherm Vapotherm Vapotherm Vapotherm O2 Flow Rate 25.00 25.00 25.00 25.00 60.00 FiO2 60 50 50 09/11/22 09/11/22 09/11/22 09/11/22 12:52 14:23 14:26 16:00 Temp 36.4 Pulse 92 89 Resp 16 B/P (MAP) 112/78 (89) Pulse Ox 97 98 97 O2 Delivery Vapotherm Vapotherm Vapotherm O2 Flow Rate 25.00 25.00 25.00 60.00 FiO2 65 65 09/11/22 00:00 Intake Total 1375 ml Output Total 1075 ml Balance 300 ml Constitutional: AAO x 3, well-developed, well-nourished Respiratory: No accessory muscle use, No respiratory distress; chest expansion is symmetric, chest is bilaterally symmetric, other (diminished throughout; dyspneic with simple conversation) Cardiovascular: regular rate-rhythm, tachycardia, systolic murmur (soft ELDER at card base) Gastrointestional: No tender; soft, audible bowel sounds Extremities: No significant edema Neurologic/Psychiatric: oriented x 3, other (moves all limbs equally) Skin: normal color, warm/dry Results/Procedures: Labs Laboratory Tests 09/10/22 20:33: Glucometer 248H 09/11/22 03:18: White Blood Count 13.3H, Red Blood Count 4.30, Hemoglobin 14.1, Hematocrit 41, Mean Corpuscular Volume 94, Mean Corpuscular Hemoglobin 33, Mean Corpuscular Hemoglobin Concent 35, Red Cell Distribution Width 14.6H, Platelet Count 179, Mean Platelet Volume 9.9, Immature Granulocyte % (Auto) 5, Neutrophils (%) (Auto) 79H, Lymphocytes (%) (Auto) 6L, Monocytes (%) (Auto) 10, Eosinophils (%) (Auto) 0, Basophils (%) (Auto) 0, Neutrophils # (Auto) 10.5H, Lymphocytes # (Auto) 0.8L, Monocytes # (Auto) 1.3H, Eosinophils # (Auto) 0.0, Basophils # (Auto) 0.0, Immature Granulocyte # (Auto) 0.7H, Sodium Level 135, Potassium Level 4.3, Chloride Level 99, Carbon Dioxide Level 27, Anion Gap 9, Blood Urea Nitrogen 25H, Creatinine 0.94, Estimat Glomerular Filtration Rate 84, BUN/Creatinine Ratio 27, Glucose Level 177H, Calcium Level 8.6, Corrected Calcium 9.4, Magnesium Level 2.2, Total Bilirubin 0.8, Aspartate Amino Transf (AST/SGOT) 17, Alanine Aminotransferase (ALT/SGPT) 45, Alkaline Phosphatase 55, Total Protein 5.6L, Albumin 3.0L 09/11/22 11:20: Glucometer 348H 09/11/22 15:57: Glucometer 333H Laboratory Tests 09/10/22 03:25 09/11/22 03:18 A/P: Assessment: Interstitial lung disease vs other pulmonary causes of pulmonary hypertension - management per eICU and Medical services Acute on chronic resp failure - Recent hospitalization at [facility] in [place], [place] d/t resp failure d/t pneumonia and Influenza A on 07-21-22 - transferred to [facility] in [place], [place] on 07-31-22 - admitted to [facility] in mid Aug 2022 - Pulmonary HTN of undetermined etiology - on sildenafil and chronic oxygen at home (prior to admission) - followed by Dr. Kaur of pulmonary services in [place], [place] - deteriorating resp status requiring transfer to ICU on 09-02-22 SSS. PAF with controlled vent response seen on tele of 08/23/22 (CHADSVASc score 6) - s/p pacemaker in 2019, followed by Dr Carpenter at [facility] - had been on apixaban for stroke prophylaxis since 08/23/22 - stopped (by medical services) d/t episode of hematuria - resumed on 08-28-22 - Echocardiogram of 09-02-22 showed LVEF 65-70%. Trivial AoR H/o HTN H/o HLD CARLA DM 2 H/o previous CVA - Alexa 2016 - treated at [place] - per pt source undetermined - no residual COPD H/o tobaccoism - quit 30 yrs ago Plan: * Pulm htn and ac on ch resp failure management is with the Med and ICU svce * Continue current medication regimen * Resp failure does not appear to be primarily of cardiac origin (normal LVEF, normal BNP). * Advise transfer to tertiary care facility with pulmonology services - waiting on LTAC placement in [place] or [place] * Monitor labs EDUARDO LANE MD FACP FACC CCDS Sep 11, 2022 16:55
[2022-09-11] MEDS: eZETimibe 10 MG (ZETIA) TABLET PO SCH (20:05)
[2022-09-11] MEDS: LORazepam INJ 2 MG/ML (ATIVAN) VIAL IVP PRN (21:02)
[2022-09-11 22:50] VITALS: BP 107/69
[2022-09-12] MEDS: RT-ALBUTEROL SULF 2.5 MG/3 ML PRE-MIX VIAL INH SCH ×6 (02:17→21:46)
[2022-09-12] MEDS: RT-IPRATROPIUM (ATROVENT) 0.5MG/2.5ML AMP IH SCH ×6 (02:17→21:46)
[2022-09-12 05:08] LABS: BASOPHILS % (AUTO) 0 % (0-10); EOSINOPHILS % (AUTO) 0 % (0-10); HEMATOCRIT 41 % (40-54); HEMOGLOBIN 14.1 g/dL (13.3-17.7); LYMPHOCYTES # (AUTO) 0.9 10^3/uL (1.0-4.0); LYMPHOCYTES % (AUTO) 7 % (12-44); MEAN CORPUSCULAR HEMOGLOBIN 33 pg (25-34); MEAN CORPUSCULAR HGB CONC 35 g/dL (32-36); MEAN CORPUSCULAR VOLUME 93 fL (80-99); MEAN PLATELET VOLUME 9.9 fL (9.0-12.2); MONOCYTES % (AUTO) 8 % (0-12); NEUTROPHILS # (AUTO) 10.5 10^3/uL (1.8-7.8); NEUTROPHILS % (AUTO) 80 % (42-75); PLATELET COUNT 186 10^3/uL (130-400); WHITE BLOOD COUNT 13.2 10^3/uL (4.3-11.0)
[2022-09-12 05:24] LABS: POTASSIUM 4.1 MMOL/L (3.6-5.0)
[2022-09-12 05:25] LABS: CALCIUM 8.4 MG/DL (8.5-10.1)
[2022-09-12 05:27] LABS: TOTAL PROTEIN 5.4 GM/DL (6.4-8.2)
[2022-09-12 05:30] LABS: CREATININE SERUM 0.83 MG/DL (0.60-1.30)
[2022-09-12 05:33] LABS: MAGNESIUM 2.1 MG/DL (1.6-2.4)
[2022-09-12] MEDS: inSUlin ASPART (NovoLOG) 1 UNIT/0.01 ML (CHARGE PER UNIT) SC SCH ×4 (05:40→20:54)
[2022-09-12] MEDS: MULTIVIT W/MINERALS TAB (THERAGRAN M) PO SCH (06:13)
[2022-09-12] MEDS: predniSONE 20 MG TAB PO SCH (06:13)
[2022-09-12] MEDS: PANTOPRAZOLE 40 MG (PROTONIX) TAB PO SCH (06:13)
--- NOTE | 2022-09-12 06:17 | Diagnostic Imaging Report ---
Indication: Shortness of breath Portable chest 4:58 AM There is a dual-chamber pacemaker. There is cardiomegaly with pulmonary vascular congestion and interstitial edema. IMPRESSION: Congestive heart failure. No significant change from previous day. Dictated by: Dictated on workstation # [id number]
[2022-09-12] MEDS: UMECLIDINIUM BROMIDE (INCRUSE ELLIPTA) 7'S IH SCH (06:56)
[2022-09-12] MEDS: NEO/POLY/BAC (NEOSPORIN) OINT 15 GM TUBE TOP SCH ×2 (08:32→20:55)
[2022-09-12] MEDS: BUMETANIDE 1 MG (BUMEX) TAB PO SCH (08:32)
[2022-09-12] MEDS: APIXABAN 5 MG (ELIQUIS) TABLET PO SCH ×2 (08:32→20:05)
[2022-09-12] MEDS: ASPIRIN 81 MG CHEW (CHILDREN'S ASA) PO SCH (08:32)
[2022-09-12] MEDS: meTOproloL SUCCINATE 50 MG (TOPROL XL) TAB PO SCH (08:33)
[2022-09-12] MEDS: SENNA W/DOCUSATE (SENOKOT S) TABLET PO SCH ×2 (08:33→20:05)
[2022-09-12] MEDS: SENNOSIDES 8.6 MG (SENOKOT) TAB PO SCH ×2 (08:33→20:38)
[2022-09-12] MEDS: polyethylene glycoL POWDER 17 GM (MIRALAX) PACK PO SCH ×2 (08:33→20:37)
[2022-09-12] MEDS: SILDENAFIL 20 MG (REVATIO) TAB PO SCH (08:33)
--- NOTE | 2022-09-12 09:32 | Physical Therapy Daily Note ---
PT Daily Note-Current Subjective Patient reports he is dizzy today. Community Organization Director present. Pain Section J - Health Conditions 1. Rarely or not at all 2. Occasionally 3. Frequently 4. Almost constantly 8. Unable to answer Pain Effect on Sleep: 1 Pain Interference with Therapy: 1 Pain Interference w/Day-to-Day: 1 Mental Status Patient Orientation: Normal For Age Attachments: Oxygen (vapotherm 20/55) Transfers SCALE: Activities may be completed with or without assistive devices. 2-Xujymxzago-drvkwfe completes the activity by him/herself with no assistance from a helper. 5-Set-up or Clean-up Assistance-helper sets up or cleans up; patient completes activity. [place] assists only prior to or following the activity. 4-Supervision or Touching Assistance-helper provides verbal cues and/or touching/steadying and/or contact guard assistance as patient completes activity. Assistance may be provided throughout the activity or intermittently. 3-Partial/Moderate Assistance-helper does LESS THAN HALF the effort. [place] lifts, holds or supports trunk or limbs, but provides less than half the effort. 2-Substantial/Maximal Assistance-helper does MORE THAN HALF the effort. [place] lifts or holds trunk or limbs and provides more than half the effort. 9-Kdctxniiz-nnnfkw does ALL the effort. Patient does none of the effort to complete the activity. Or, the assistance of 2 or more helpers is required for the patient to complete the activity. If activity was not attempted, code reason: 7-Patient Refused. 9-Not Applicable-not attempted and the patient did not perform the activity before the current illness, exacerbation or injury. 10-Not Attempted due to Environmental Limitations-(lack of equipment, weather restraints, etc.). 88-Not Attempted due to Medical Conditions or Safety Concerns. Lying to Sitting/Side of Bed(Q: 4 Sit to Stand (QC): 4 Chair/Wpk-kc-Sepsg Xfer(QC): 4 Exercises Seated Therapy Exercises: Sit to stand Seated Reps: 3 (standing for 1 min each with noted decreased SAO2 to 80% with prolonged recovery) Assessment Patient continues to require time to recover from minimal activity. Per report, patient will transfer to LTAC next week. PT Group Home Goals Client Retention Specialist Goals PT Group Home Goals Time Frame: Sep 20, 2022 Roll Left & Right (QC): 6 Sit to Lying (QC): 6 Lying-Sitting on Side/Bed(QC): 6 Sit to Stand (QC): 6 Chair/Wkh-wa-Nujoz Xfer(QC): 6 Toilet Transfer (QC): 6 Walk 10 feet (QC): 4 Walk 50ft with 2 Turns (QC): 4 PT Plan Treatment/Plan Treatment Plan: Continue Plan of Care Treatment Plan: Bed Mobility, Education, Functional Activity Cece, Functional Strength, Gait, Safety, Therapeutic Exercise, Transfers Treatment Duration: Sep 20, 2022 Frequency: 6 times per week Estimated Hrs Per Day: .25 hour per day Patient and/or Family Agrees t: Yes Time Time In: 852 Time Out: 903 DATE: Sep 12, 2022 Total Billed Treatment Time: 11 Total Billed Treatment 1 visit EX 11 min ISAIAH RUIZ PT Sep 12, 2022 09:31
--- NOTE | 2022-09-12 09:44 | Progress Note - Cardiology ---
Cardiology SOAP Progress Note Subjective: No cp or palp or syncope Shortness of breath with activity Weakness and dizziness are present No focal weakness No n/v/d Objective: I&O/Vital Signs 09/11/22 09/12/22 09/12/22 09/12/22 22:50 00:00 01:00 02:17 Temp 36.4 Pulse 88 85 80 80 Resp 18 17 19 B/P (MAP) 133/87 (102) Pulse Ox 98 99 96 O2 Delivery NIV Bilevel O2 Flow Rate 45.00 45.00 45.00 09/12/22 09/12/22 09/12/22 09/12/22 04:00 05:00 06:56 07:00 Temp 36.5 Pulse 89 Resp 17 B/P (MAP) 147/89 (108) Pulse Ox 99 93 O2 Delivery NIV Bilevel Vapotherm Vapotherm Vapotherm O2 Flow Rate 45.00 25.00 25.00 25.00 65.00 55.00 FiO2 55 09/12/22 09/12/22 09/12/22 09/12/22 07:00 07:30 08:43 09:00 Temp 36.2 36.5 Pulse 84 84 Resp 23 17 B/P (MAP) 136/92 (107) 147/89 (108) Pulse Ox 96 93 93 O2 Delivery Vapotherm Vapotherm O2 Flow Rate 25.00 20.00 25.00 FiO2 55 09/12/22 00:00 Intake Total 600 ml Output Total 1600 ml Balance -1000 ml Constitutional: AAO x 3, well-developed, well-nourished Respiratory: No accessory muscle use, No respiratory distress; chest expansion is symmetric, chest is bilaterally symmetric, other (diminished throughout; dyspneic with simple conversation) Cardiovascular: regular rate-rhythm, tachycardia, systolic murmur (soft ELDER at card base) Gastrointestional: No tender; soft, audible bowel sounds Extremities: No significant edema Neurologic/Psychiatric: oriented x 3, other (moves all limbs equally) Skin: normal color, warm/dry Results/Procedures: Labs Laboratory Tests 09/11/22 11:20: Glucometer 348H 09/11/22 15:57: Glucometer 333H 09/12/22 04:56: White Blood Count 13.2H, Red Blood Count 4.34, Hemoglobin 14.1, Hematocrit 41, Mean Corpuscular Volume 93, Mean Corpuscular Hemoglobin 33, Mean Corpuscular Hemoglobin Concent 35, Red Cell Distribution Width 14.4, Platelet Count 186, Mean Platelet Volume 9.9, Immature Granulocyte % (Auto) 5, Neutrophils (%) (Auto) 80H, Lymphocytes (%) (Auto) 7L, Monocytes (%) (Auto) 8, Eosinophils (%) (Auto) 0, Basophils (%) (Auto) 0, Neutrophils # (Auto) 10.5H, Lymphocytes # (Auto) 0.9L, Monocytes # (Auto) 1.0, Eosinophils # (Auto) 0.0, Basophils # (Auto) 0.0, Immature Granulocyte # (Auto) 0.7H, Sodium Level 135, Potassium Level 4.1, Chloride Level 99, Carbon Dioxide Level 28, Anion Gap 8, Blood Urea Nitrogen 24H, Creatinine 0.83, Estimat Glomerular Filtration Rate 91, BUN/Creatinine Ratio 29, Glucose Level 112H, Calcium Level 8.4L, Corrected Calcium 9.2, Magnesium Level 2.1, Total Bilirubin 1.0, Aspartate Amino Transf (AST/SGOT) 17, Alanine Aminotransferase (ALT/SGPT) 37, Alkaline Phosphatase 52, Total Protein 5.4L, Albumin 3.0L Laboratory Tests 09/11/22 03:18 09/12/22 04:56 A/P: Assessment: Postural dizziness, likely due to diuretic therapy Interstitial lung disease vs other pulmonary causes of pulmonary hypertension - management per eICU and Medical services Acute on chronic resp failure - Recent hospitalization at [facility] in [place], [place] d/t resp failure d/t pneumonia and Influenza A on 07-21-22 - transferred to [facility] in [place], [place] on 07-31-22 - admitted to [facility] in mid Aug 2022 - Pulmonary HTN of undetermined etiology - on sildenafil and chronic oxygen at home (prior to admission) - followed by Dr. Kaur of pulmonary services in [place], [place] - deteriorating resp status requiring transfer to ICU on 09-02-22 SSS. PAF with controlled vent response seen on tele of 08/23/22 (CHADSVASc score 6) - s/p pacemaker in 2019, followed by Dr Carpenter at [facility] - had been on apixaban for stroke prophylaxis since 08/23/22 - stopped (by medical services) d/t episode of hematuria - resumed on 08-28-22 - Echocardiogram of 09-02-22 showed LVEF 65-70%. Trivial AoR H/o HTN H/o HLD CARLA DM 2 H/o previous CVA - Alexa 2016 - treated at [facility] - per pt source undetermined - no residual COPD H/o tobaccoism - quit 30 yrs ago Plan: * Pulm htn and ac on ch resp failure management is with the Med and ICU svce * Resp failure does not appear to be primarily of cardiac origin (normal LVEF, normal BNP) * Diuretic therapy is resulting in postural dizziness: reduce Bumex to qod * Advise transfer to tertiary care facility with pulmonology services - waiting on LTAC placement in [place] or [place] * Monitor labs EDUARDO LAEN MD FACP FAC CCDS Sep 12, 2022 09:44
--- NOTE | 2022-09-12 10:44 | Occupational Ther Daily Note ---
OT Current Status-Daily Note Subjective UP in chair resting Mental Status/Objective Patient Orientation: Situation Attachments: Oxygen Oxygen (vapotherm ) ADL-Treatment Therapy Code Descriptions/Definitions Functional [place] Measure: 0=Not Assessed/NA 4=Minimal Assistance 1=Total Assistance 5=Supervision or Setup 2=Maximal Assistance 6=Modified [place] 3=Moderate Assistance 7=Complete IndependenceSCALE: Activities may be completed with or without assistive devices. 5-Degjftpsvb-dsvbffe completes the activity by him/herself with no assistance from a helper. 5-Set-up or Clean-up Assistance-helper sets up or cleans up; patient completes activity. [place] assists only prior to or following the activity. 4-Supervision or Touching Assistance-helper provides verbal cues and/or touching/steadying and/or contact guard assistance as patient completes activity. Assistance may be provided throughout the activity or intermittently. 3-Partial/Moderate Assistance-helper does LESS THAN HALF the effort. [place] lifts, holds or supports trunk or limbs, but provides less than half the effort. 2-Substantial/Maximal Assistance-helper does MORE THAN HALF the effort. [place] lifts or holds trunk or limbs and provides more than half the effort. 5-Eexschapv-jkvlaw does ALL the effort. Patient does none of the effort to complete the activity. Or, the assistance of 2 or more helpers is required for the patient to complete the activity. If activity was not attempted, code reason: 7-Patient Refused. 9-Not Applicable-not attempted and the patient did not perform the activity before the current illness, exacerbation or injury. 10-Not Attempted due to Environmental Limitations-(lack of equipment, weather restraints, etc.). 88-Not Attempted due to Medical Conditions or Safety Concerns. Eating (QC): 6 Oral Hygiene (QC): 5 Upper Body Dressing (QC): 5 Lower Body Dressing (QC): 3 On/Off Footwear: 3 Toileting Hygiene (QC): 7 Toilet Transfer (QC): 7 Other Treatment intermittent standing to perform 5 games of Clerk four w/ OT. Patient does not fully comprehend strategy of game, raking grasp and lateral pinch used by patient d/t poor dexterity. Education OT Patient Education: Energy conservation, Exercise program, Purpose of tx/functional activities, Reviewed precautions, Rehab process, Safety issues, Transfer techniques Teaching Recipient: Patient Teaching Methods: Demonstration, Discussion Response to Teaching: Verbalize Understanding, Return Demonstration, Reinforcement Needed OT Care Home Goals Care Home Goals Eating (QC): 6 Oral Hygiene (QC): 6 Toileting Hygiene (QC): 6 Shower/Bathe Self (QC): 6 Upper Body Dressing (QC): 6 Lower Body Dressing (QC): 6 On/Off Footwear (QC): 6 1=Demonstrate adherence to instructed precautions during ADL tasks. 2=Patient will verbalize/demonstrate understanding of assistive devices/modifications for ADL. 3=Patient will improve strength/tolerance for activity to enable patient to perform ADL's. OT Education/Plan Problem List/Assessment Assessment: Decreased Activ Tolerance, Decreased Safety Aware, Decreased UE Strength, Impaired Coordination, Impaired Self-Care Skills Discharge Recommendations Plan/Recommendations: Continue POC Therapy Discharge Recommendati: Post Acute OT Treatment Plan/Plan of Care Treatment,Training & Education: Yes Patient would benefit from OT for education, treatment and training to promote independence in ADL's, mobility, safety and/or upper extremity function for ADL's. Plan of Care: ADL Retraining, Cognitive Retraining, Concurrent Therapy, Functional Mobility, Group Exercise/Act as Ind Treatment Duration: Sep 13, 2022 Frequency: 3 times per week (3-5 times per week) Estimated Hrs Per Day: .25 hour per day Agreement: Yes Rehab Potential: Guarded Remains up in chair all needs met, report given to RN Time Start Time: 10:10 Stop Time: 10:25 DATE: Sep 12, 2022 Total Time Billed (hr/min): 15 Billed Treatment Time 1 visit FA 1 15 minutes IRWIN SPEAR OT Sep 12, 2022 10:44
--- NOTE | 2022-09-12 12:38 | Progress Note ---
JARETJulissaHARJINDER LAURENT 09/12/22 1237: Subjective Date Seen by a Provider: Sep 12, 2022 Time Seen by a Provider: 08:00 Subjective/Events-last exam Upon follow-up on AoC respiratory failure, Gulshan is sitting upright in his recliner with Vapotherm in place (O2 flow: 25, FiO2: 55). He states that he fee ls "pretty okay today," and that his breathing feels the same as yesterday. He states he slept through the night with his BiPAP in place, and continues to have an appetite. He further reports that he had a bowel movement yesterday. He denies any nausea, vomiting, fever, chills, or pain. Gulshan is conversational and pleasant. Review of Systems General: No Chills, No Night Sweats; Fatigue HEENT: Head Aches (d/t BiPAP mask); No Visual Changes Pulmonary: Dyspnea; No Cough Cardiovascular: No: Chest Pain, Palpitations Gastrointestinal: No: Nausea, Vomiting, Abdominal Pain Genitourinary: No Dysuria, No Frequency Musculoskeletal: No: neck pain, shoulder pain Neurological: Weakness; No: Numbness Objective Exam Last Set of Vital Signs Vital Signs Date Time Temp Pulse Resp B/P (MAP) Pulse Ox O2 Delivery O2 Flow Rate FiO2 09/12/22 11:00 92 Vapotherm 20.00 55 09/12/22 08:43 36.5 84 17 147/89 (108) Capillary Refill : Less Than 3 Seconds I&O Intake and Output 09/12/22 00:00 Intake Total 600 ml Output Total 1900 ml Balance -1300 ml Intake Oral 600 ml Output Urine Total 1900 ml # Voids 1 # Urine Diapers 1 General: Alert, Oriented X3, Cooperative, No Acute Distress HEENT: Atraumatic, PERRLA Neck: Supple, No JVD Lungs: Clear to Auscultation Heart: Regular Rate Abdomen: Normal Bowel Sounds, Soft Extremities: No Clubbing, No Cyanosis Skin: No Rashes, No Breakdown Neuro: Normal Gait, Normal Speech Psych/Mental Status: Mental Status NL, Mood NL Results Lab Laboratory Tests 09/11/22 15:57: Glucometer 333H 09/12/22 04:56: White Blood Count 13.2H, Red Blood Count 4.34, Hemoglobin 14.1, Hematocrit 41, Mean Corpuscular Volume 93, Mean Corpuscular Hemoglobin 33, Mean Corpuscular Hemoglobin Concent 35, Red Cell Distribution Width 14.4, Platelet Count 186, Mean Platelet Volume 9.9, Immature Granulocyte % (Auto) 5, Neutrophils (%) (Auto ) 80H, Lymphocytes (%) (Auto) 7L, Monocytes (%) (Auto) 8, Eosinophils (%) (Auto) 0, Basophils (%) (Auto) 0, Neutrophils # (Auto) 10.5H, Lymphocytes # (Auto) 0.9L , Monocytes # (Auto) 1.0, Eosinophils # (Auto) 0.0, Basophils # (Auto) 0.0, Immature Granulocyte # (Auto) 0.7H, Sodium Level 135, Potassium Level 4.1, Chloride Level 99, Carbon Dioxide Level 28, Anion Gap 8, Blood Urea Nitrogen 24H , Creatinine 0.83, Estimat Glomerular Filtration Rate 91, BUN/Creatinine Ratio 29, Glucose Level 112H, Calcium Level 8.4L, Corrected Calcium 9.2, Magnesium Level 2.1, Total Bilirubin 1.0, Aspartate Amino Transf (AST/SGOT) 17, Alanine Aminotransferase (ALT/SGPT) 37, Alkaline Phosphatase 52, Total Protein 5.4L, Albumin 3.0L 09/12/22 11:12: Glucometer 354H Radiology Date of Exam:09/12/22 CHEST 1 VIEW, AP/PA ONLY Indication: Shortness of breath Portable chest 4:58 AM There is a dual-chamber pacemaker. There is cardiomegaly with pulmonary vascular congestion and interstitial edema. IMPRESSION: Congestive heart failure. No significant change from previous day. Assessment/Plan Assessment/Plan Assess & Plan/Chief Complaint AoC Respiratory failure Pulmonary Fibrosis Pulmonary Hypertension COPD -On Vapotherm Present oxygen requirement poses challenge to placement Present goal is to attempt weaning supplemental oxygen -Pt presently on O2 flow of 25, FiO2 of 55% -Fluid restriction to 1500 ml/day -Bumex -IS 10x/hr -Duoneb PRN, Incruse Ellipta Inhaler, and Albuterol -On Sildenafil -On Solumedrol Afib with RVR -S/P pacemaker placement (2019) -Cardiology consulted and appreciated -On Eliquis and Lopressor - PO Diltiazem in addition to 125ml IVP @ 5mls/hr -Did have an echocardiogram, which revealed an LVEF of 65-70%, with no major abnormalities noted -Tachycardia is improving, ranging from 80s-100s over the past 12 hours -Given improved rate control, referrals have been sent to [facility] [place] and [facility] -Patient has been accepted to [facility] and will transfer upon bed availability either on 09/15 or 09/16/22 -SS is following -PICC line placement d/t long-term care needs CARLA -BiPAP General debility -Consider PT/OT R MCA CVA, 2017 - Still has position deficits in leg, motor and strength almost back to normal -On Plavix, Aspirin, Zetia, and Lipitor HTN -On Lopressor HLD -On Zetia DM2 -Diabetic diet -On Novolog sliding scale GI PPX -Protonix LIYAH GABRIEL DO 09/13/22 0702: Supervisory-Addendum Brief Verification & Attestation Participated in pt care: history, MDM, physical Personally performed: exam, history, MDM, supervision of care Care discussed with: Medical Student Procedures: n/a Results interpretation: Verified all documentation Verification and Attestation of Medical Student E/M Service A medical student performed and documented this service in my presence. I revi ewed and verified all information documented by the medical student and made modifications to such information, when appropriate. I personally performed the physical exam and medical decision making. Liyah Gabriel, Sep 13, 2022,07:02 HARJINDER OLEARY Sep 12, 2022 12:37 LIYAH GABRIEL DO Sep 13, 2022 07:02
[2022-09-12] MEDS: inSUlin (REGULAR) HUMAN 1 UNIT/0.01 ML (CHARGE PER UNIT) SC SCH ×2 (16:50→21:49)
[2022-09-12] MEDS: eZETimibe 10 MG (ZETIA) TABLET PO SCH (20:05)
[2022-09-12] MEDS: LORazepam INJ 2 MG/ML (ATIVAN) VIAL IVP PRN (20:54)
[2022-09-12 21:46] VITALS: BP 117/74
[2022-09-13] MEDS: LORazepam INJ 2 MG/ML (ATIVAN) VIAL IVP PRN ×2 (02:38→21:56)
[2022-09-13] MEDS: RT-IPRATROPIUM (ATROVENT) 0.5MG/2.5ML AMP IH SCH ×6 (02:43→21:51)
[2022-09-13 02:44] VITALS: BP 127/93
[2022-09-13] MEDS: RT-ALBUTEROL SULF 2.5 MG/3 ML PRE-MIX VIAL INH SCH ×6 (02:44→21:51)
[2022-09-13] MEDS: predniSONE 20 MG TAB PO SCH (06:22)
[2022-09-13] MEDS: PANTOPRAZOLE 40 MG (PROTONIX) TAB PO SCH (06:22)
[2022-09-13] MEDS: inSUlin (REGULAR) HUMAN 1 UNIT/0.01 ML (CHARGE PER UNIT) SC SCH ×4 (06:22→20:42)
[2022-09-13] MEDS: MULTIVIT W/MINERALS TAB (THERAGRAN M) PO SCH (06:22)
[2022-09-13] MEDS: inSUlin ASPART (NovoLOG) 1 UNIT/0.01 ML (CHARGE PER UNIT) SC SCH ×4 (06:23→20:42)
[2022-09-13] MEDS: SILDENAFIL 20 MG (REVATIO) TAB PO SCH (08:02)
[2022-09-13] MEDS: APIXABAN 5 MG (ELIQUIS) TABLET PO SCH ×2 (08:02→20:32)
[2022-09-13] MEDS: NEO/POLY/BAC (NEOSPORIN) OINT 15 GM TUBE TOP SCH ×2 (08:02→20:34)
[2022-09-13] MEDS: meTOproloL SUCCINATE 50 MG (TOPROL XL) TAB PO SCH (08:02)
[2022-09-13] MEDS: SENNOSIDES 8.6 MG (SENOKOT) TAB PO SCH ×2 (08:02→20:32)
[2022-09-13] MEDS: ASPIRIN 81 MG CHEW (CHILDREN'S ASA) PO SCH (08:02)
[2022-09-13] MEDS: SENNA W/DOCUSATE (SENOKOT S) TABLET PO SCH ×2 (08:02→20:32)
[2022-09-13] MEDS: polyethylene glycoL POWDER 17 GM (MIRALAX) PACK PO SCH ×2 (08:02→20:33)
[2022-09-13] MEDS: UMECLIDINIUM BROMIDE (INCRUSE ELLIPTA) 7'S IH SCH (08:10)
--- NOTE | 2022-09-13 08:19 | Diagnostic Imaging Report ---
EXAMINATION: Chest 1 view HISTORY: Dyspnea COMPARISON: 09/12/2022 FINDINGS: Heart size is enlarged with prominence of pulmonary vasculature. Left-sided cardiac device is unchanged. Low lung volumes with patchy interstitial airspace opacities seen within the lungs. No significant pleural effusion or pneumothorax. Degenerative changes of the thoracic spine. Osseous structures are otherwise intact. IMPRESSION: 1. Low lung volumes and cardiomegaly with interstitial and airspace opacities seen throughout the lungs. Findings can be seen with atelectasis, pulmonary edema, or pneumonia. Dictated by: Dictated on workstation # [id number]
--- NOTE | 2022-09-13 10:13 | Physical Therapy Daily Note ---
PT Daily Note-Current Subjective Pt in bed upon arrival and agrees to PT. Pain Section J - Health Conditions 1. Rarely or not at all 2. Occasionally 3. Frequently 4. Almost constantly 8. Unable to answer Pain Effect on Sleep: 1 Pain Interference with Therapy: 1 Pain Interference w/Day-to-Day: 1 Mental Status Patient Orientation: Person, Place, Time, Situation Attachments: Oxygen (Vapo-therm) Transfers SCALE: Activities may be completed with or without assistive devices. 5-Ledqyliumd-isogykx completes the activity by him/herself with no assistance from a helper. 5-Set-up or Clean-up Assistance-helper sets up or cleans up; patient completes activity. [place] assists only prior to or following the activity. 4-Supervision or Touching Assistance-helper provides verbal cues and/or touching/steadying and/or contact guard assistance as patient completes activity. Assistance may be provided throughout the activity or intermittently. 3-Partial/Moderate Assistance-helper does LESS THAN HALF the effort. [place] lifts, holds or supports trunk or limbs, but provides less than half the effort. 2-Substantial/Maximal Assistance-helper does MORE THAN HALF the effort. [place] lifts or holds trunk or limbs and provides more than half the effort. 1-Ghuejeznb-hriizd does ALL the effort. Patient does none of the effort to complete the activity. Or, the assistance of 2 or more helpers is required for the patient to complete the activity. If activity was not attempted, code reason: 7-Patient Refused. 9-Not Applicable-not attempted and the patient did not perform the activity before the current illness, exacerbation or injury. 10-Not Attempted due to Environmental Limitations-(lack of equipment, weather restraints, etc.). 88-Not Attempted due to Medical Conditions or Safety Concerns. Lying to Sitting/Side of Bed(Q: 4 Exercises Supine Ex: Bridging, Rolling, Scooting Supine Reps: 3 Seated Therapy Exercises: Ankle pumps, Long arc quads, Hip flexion Seated Reps: 20 Treatments Pt Tfs to EOB and performs seated exs and bed mobility . All needs met and call light in hand as PT departs. Assessment Current Status: Fair Progress Pt required cues for hand and foot placement during TFs. Pt still takes an extended amount of time to recover after o2 drops. 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 Paint Operator Goals Time Frame: Sep 20, 2022 Roll Left & Right (QC): 6 Sit to Lying (QC): 6 Lying-Sitting on Side/Bed(QC): 6 Sit to Stand (QC): 6 Chair/Lkh-tb-Dhqoh Xfer(QC): 6 Toilet Transfer (QC): 6 Walk 10 feet (QC): 4 Walk 50ft with 2 Turns (QC): 4 PT Plan Problem List Problem List: Activity Tolerance, Functional Strength, Safety Treatment/Plan Treatment Plan: Continue Plan of Care Treatment Plan: Bed Mobility, Education, Functional Activity Cece, Functional Strength, Gait, Safety, Therapeutic Exercise, Transfers Treatment Duration: Sep 20, 2022 Frequency: 6 times per week Estimated Hrs Per Day: .25 hour per day Patient and/or Family Agrees t: Yes Safety Risks/Education Patient Education: Transfer Techniques, Correct Positioning Teaching Recipient: Patient Teaching Methods: Discussion Response to Teaching: Return Demonstration Time Time In: 915 Time Out: 929 DATE: Sep 13, 2022 Total Billed Treatment Time: 14 Total Billed Treatment 1, FA 14min DELIA TURCIOS STYLIST APPRENTICE Sep 13, 2022 10:13
--- NOTE | 2022-09-13 11:05 | Progress Note - Cardiology ---
Cardiology SOAP Progress Note Subjective: Shortness of breath modestly improved No cp or palp or syncope No n/v/d Gen weakness No focal weakness Objective: I&O/Vital Signs 09/13/22 09/13/22 09/13/22 09/13/22 00:00 01:00 02:44 02:44 Pulse 85 80 82 Resp 16 21 B/P (MAP) 127/93 (104) Pulse Ox 95 95 95 O2 Delivery Vapotherm NIV Bilevel O2 Flow Rate 25.00 45.00 45.00 FiO2 45 09/13/22 09/13/22 09/13/22 09/13/22 02:52 04:00 07:00 07:51 Temp 36.7 36.5 Pulse 79 84 98 Resp 13 18 B/P (MAP) 123/85 (98) 142/98 (113) Pulse Ox 98 94 O2 Delivery Vapotherm Vapotherm NIV Bilevel O2 Flow Rate 25.00 20.00 25.00 50.00 45.00 45.00 09/13/22 09/13/22 08:12 09:00 Pulse Ox 97 93 O2 Delivery Vapotherm Vapotherm O2 Flow Rate 25.00 25.00 FiO2 45 45 09/13/22 00:00 Intake Total 890 ml Output Total 400 ml Balance 490 ml Constitutional: AAO x 3, well-developed, well-nourished Respiratory: No accessory muscle use, No respiratory distress; chest expansion is symmetric, chest is bilaterally symmetric, other (diminished throughout; dyspneic with simple conversation) Cardiovascular: regular rate-rhythm, tachycardia, systolic murmur (soft ELDER at card base) Gastrointestional: No tender; soft, audible bowel sounds Extremities: No significant edema Neurologic/Psychiatric: oriented x 3, other (moves all limbs equally) Skin: normal color, warm/dry Results/Procedures: Labs Laboratory Tests 09/12/22 11:12: Glucometer 354H 09/12/22 15:59: Glucometer 292H 09/12/22 20:07: Glucometer 192H 09/13/22 05:29: Magnesium Level 2.0 09/13/22 06:21: Glucometer 104 09/13/22 08:16: Glucometer 179H 09/13/22 10:08: Glucometer 219H Laboratory Tests 09/12/22 04:56 A/P: Assessment: Postural dizziness, likely due to diuretic therapy Interstitial lung disease vs other pulmonary causes of pulmonary hypertension - management per eICU and Medical services Acute on chronic resp failure - Recent hospitalization at [facility] in [place], [place] d/t resp failure d/t pneumonia and Influenza A on 07-21-22 - transferred to [facility] in [place], [place] on 07-31-22 - admitted to [facility] in mid Aug 2022 - Pulmonary HTN of undetermined etiology - on sildenafil and chronic oxygen at home (prior to admission) - followed by Dr. Kaur of pulmonary services in [place], [place] - deteriorating resp status requiring transfer to ICU on 09-02-22 SSS. PAF with controlled vent response seen on tele of 08/23/22 (CHADSVASc score 6) - s/p pacemaker in 2019, followed by Dr Carpenter at [facility] - had been on apixaban for stroke prophylaxis since 08/23/22 - stopped (by medical services) d/t episode of hematuria - resumed on 08-28-22 - Echocardiogram of 09-02-22 showed LVEF 65-70%. Trivial AoR H/o HTN H/o HLD CARLA DM 2 H/o previous CVA - Alexa2016 - treated at [facility] - per pt source undetermined - no residual COPD H/o tobaccoism - quit 30 yrs ago Plan: * Complex management * Pulm htn and ac on ch resp failure management is with the Med and ICU svce * Resp failure does not appear to be primarily of cardiac origin (normal LVEF, normal BNP) * Bumex reduced on 09/12/22 because of postural dizziness * Advise transfer to tertiary care facility with pulmonology services - waiting on LTAC placement in [place] or [place] * Monitor labs EDUARDO LANE MD FACP FAC CCDS Sep 13, 2022 11:05
--- NOTE | 2022-09-13 11:59 | Progress Note ---
Subjective Date Seen by a Provider: Sep 13, 2022 Time Seen by a Provider: 11:00 Subjective/Events-last exam No major issues Still on Vapotherm No exertion of desats Awaiting bed at LTAC Review of Systems Pulmonary: Dyspnea, Cough Objective Exam Last Set of Vital Signs Vital Signs Date Time Temp Pulse Resp B/P (MAP) Pulse Ox O2 Delivery O2 Flow Rate FiO2 09/13/22 11:21 97 Vapotherm 30.00 45 09/13/22 11:20 36.2 90 22 124/81 (95) Capillary Refill : Less Than 3 Seconds I&O Intake and Output 09/12/22 23:59 Intake Total 990 ml Output Total 875 ml Balance 115 ml Intake Oral 990 ml Output Urine Total 875 ml # Urine Diapers 3 General: Alert, Oriented X3, Cooperative, No Acute Distress Lungs: Clear to Auscultation, Normal Air Movement Heart: Regular Rate, Normal S1, Normal S2, No Murmurs Psych/Mental Status: Mental Status NL, Mood NL Results Lab Laboratory Tests 09/12/22 15:59: Glucometer 292H 09/12/22 20:07: Glucometer 192H 09/13/22 05:29: Magnesium Level 2.0 09/13/22 06:21: Glucometer 104 09/13/22 08:16: Glucometer 179H 09/13/22 10:08: Glucometer 219H Assessment/Plan Assessment/Plan Assess & Plan/Chief Complaint AoC Respiratory failure Pulmonary Fibrosis Pulmonary Hypertension COPD -On Vapotherm Present oxygen requirement poses challenge to placement Present goal is to attempt weaning supplemental oxygen -Pt presently on O2 flow of 25, FiO2 of 55% -Fluid restriction to 1500 ml/day -Bumex -IS 10x/hr -Duoneb PRN, Incruse Ellipta Inhaler, and Albuterol -On Sildenafil -On Solumedrol Afib with RVR -S/P pacemaker placement (2018) -Cardiology consulted and appreciated -On Eliquis and Lopressor - PO Diltiazem -Did have an echocardiogram, which revealed an LVEF of 65-70%, with no major abnormalities noted -Tachycardia is improving, ranging from 80s-100s over the past 12 hours -Given improved rate control, referrals have been sent to [facility] -Patient has been accepted to [facility] and will transfer upon bed availability either on 09/15 or 09/16/22 -SS is following -PICC line placement d/t long-term care needs CARLA -BiPAP General debility -Consider PT/OT R MCA CVA, 2017 - Still has position deficits in leg, motor and strength almost back to normal -On Plavix, Aspirin, Zetia, and Lipitor HTN -On Lopressor HLD -On Zetia DM2 -Diabetic diet -On Novolog sliding scale GI PPX -Protonix Clinical Quality Measures Admission Status Admission Dx Acute on chronic respiratory failure requiring transfer from [facility] to now ICU on Vapotherm and BiPAP at high risk for intubation Atrial fibrillation (Follows with Dr. Carpenter) - AV block s/p pacemaker placement; rate and rhythm controlled. - on Metoprolol, Diltiazem - Eliquis-held 08/14/22 due to hematuria then restarted 08/28/22 R [facility] CVA - (October 2016) - Still has position deficits in leg, motor and strength almost back to normal - On clopidegril and baby aspirin - Continue statin - COPD (Follows with [facility]) - Recent exacerbation - on 2L baseline, currently requiring more - continue incruse ellipta (LAMA) - DuoNebs PRN Pulmonary Fibrosis (diagnosed 3 months ago) - on sildenafil 20 - As above for COPD treatment PRN Urinary incontinence - [place] previous - Not currently taking reductase inhibitors/alpha blockers - Bladder scan for post void residual Hypertension - Hold home medication if normotensive T2DM - Monitor blood sugar - ISS as needed, adjust with exercise Hx of sleep apnea - Does not tolerate CPAP, uses 2L O2 NC at night - Baseline 2L Hematuria on 08/24/2022 -Hold anticoagulation and check urine UTI Pseudomonas Plan: Consult Cardiology Home meds O2 Monitor closely 08/22/2022: Patient doing well 08/23/2022: Eliquis 08/24/2022: Hold anticoagulation Check UA 08/25/2022: Change abx to Cipro and await UCx 08/26/2022: F/U on UCx Monitor closely 08/27/2022: Complete abx Hold OAC until UTI treated 08/28/2022: Monitor HR Appreciated Dr Barnes 08/29/2022: Restarted OAC yesterday Complete abx for UTI 08/30/2022: Complete abx 08/31/2022: Complete antibiotics today 09/01/2022: IV steroids DAYANA GABRIEL DO Sep 13, 2022 11:59
[2022-09-13] MEDS: eZETimibe 10 MG (ZETIA) TABLET PO SCH (20:32)
[2022-09-13 21:51] VITALS: BP 105/68
[2022-09-14] MEDS: LORazepam INJ 2 MG/ML (ATIVAN) VIAL IVP PRN ×2 (01:06→21:30)
[2022-09-14] MEDS: RT-IPRATROPIUM (ATROVENT) 0.5MG/2.5ML AMP IH SCH ×6 (03:07→22:35)
[2022-09-14 03:08] VITALS: BP 116/88
[2022-09-14] MEDS: RT-ALBUTEROL SULF 2.5 MG/3 ML PRE-MIX VIAL INH SCH ×6 (03:08→22:35)
[2022-09-14 06:03] LABS: BASOPHILS % (AUTO) 0 % (0-10); EOSINOPHILS % (AUTO) 0 % (0-10); HEMATOCRIT 40 % (40-54); HEMOGLOBIN 13.9 g/dL (13.3-17.7); LYMPHOCYTES % (AUTO) 9 % (12-44); MEAN CORPUSCULAR HEMOGLOBIN 33 pg (25-34); MEAN CORPUSCULAR HGB CONC 34 g/dL (32-36); MEAN CORPUSCULAR VOLUME 95 fL (80-99); MEAN PLATELET VOLUME 9.9 fL (9.0-12.2); MONOCYTES # (AUTO) 1.1 10^3/uL (0.0-1.0); MONOCYTES % (AUTO) 9 % (0-12); NEUTROPHILS # (AUTO) 9.1 10^3/uL (1.8-7.8); NEUTROPHILS % (AUTO) 76 % (42-75); PLATELET COUNT 162 10^3/uL (130-400)
[2022-09-14 06:13] LABS: POTASSIUM 3.9 MMOL/L (3.6-5.0)
[2022-09-14 06:14] LABS: CALCIUM 8.3 MG/DL (8.5-10.1)
[2022-09-14 06:18] LABS: CREATININE SERUM 0.81 MG/DL (0.60-1.30)
[2022-09-14] MEDS: inSUlin ASPART (NovoLOG) 1 UNIT/0.01 ML (CHARGE PER UNIT) SC SCH ×4 (06:32→21:28)
[2022-09-14] MEDS: inSUlin (REGULAR) HUMAN 1 UNIT/0.01 ML (CHARGE PER UNIT) SC SCH ×4 (06:32→21:28)
[2022-09-14] MEDS: PANTOPRAZOLE 40 MG (PROTONIX) TAB PO SCH (06:46)
[2022-09-14] MEDS: predniSONE 20 MG TAB PO SCH (06:46)
[2022-09-14] MEDS: MULTIVIT W/MINERALS TAB (THERAGRAN M) PO SCH (06:46)
--- NOTE | 2022-09-14 07:26 | Progress Note ---
Subjective Date Seen by a Provider: Sep 14, 2022 Time Seen by a Provider: 11:00 Subjective/Events-last exam Patient doing the same Vapotherm 30 liters and 35% Loose incontinent bowel in bed right now No major issues otherwise Awaiting LTAC bed Review of Systems General: Fatigue, Malaise Pulmonary: Dyspnea Objective Exam Last Set of Vital Signs Vital Signs Date Time Temp Pulse Resp B/P (MAP) Pulse Ox O2 Delivery O2 Flow Rate FiO2 09/14/22 04:45 Vapotherm 30.00 45.00 09/14/22 04:00 36.6 71 13 98/71 (80) 98 09/13/22 21:00 45 Capillary Refill : Less Than 3 Seconds I&O Intake and Output 09/13/22 23:59 Intake Total 1950 ml Output Total 400 ml Balance 1550 ml Intake Oral 1950 ml Output Urine Total 400 ml # Urine Diapers 4 # Bowel Movements 1 General: Alert, Oriented X3, Cooperative, No Acute Distress Lungs: Clear to Auscultation, Normal Air Movement Heart: Regular Rate, Normal S1, Normal S2, No Murmurs Psych/Mental Status: Mental Status NL, Mood NL Results Lab Laboratory Tests 09/13/22 08:16: Glucometer 179H 09/13/22 10:08: Glucometer 219H 09/13/22 16:17: Glucometer 282H 09/13/22 20:36: Glucometer 237H 09/14/22 05:30: White Blood Count 12.0H, Red Blood Count 4.27L, Hemoglobin 13.9, Hematocrit 40, Mean Corpuscular Volume 95, Mean Corpuscular Hemoglobin 33, Mean Corpuscular Hemoglobin Concent 34, Red Cell Distribution Width 14.6H, Platelet Count 162, Mean Platelet Volume 9.9, Immature Granulocyte % (Auto) 6, Neutrophils (%) (Auto) 76H, Lymphocytes (%) (Auto) 9L, Monocytes (%) (Auto) 9, Eosinophils (%) (Auto) 0, Basophils (%) (Auto) 0, Neutrophils # (Auto) 9.1H, Lymphocytes # (Auto) 1.0, Monocytes # (Auto) 1.1H, Eosinophils # (Auto) 0.0, Basophils # (Auto) 0.0, Immature Granulocyte # (Auto) 0.8H, Sodium Level 137, Potassium Level 3.9, Chloride Level 99, Carbon Dioxide Level 28, Anion Gap 10, Blood Urea Nitrogen 19H, Creatinine 0.81, Estimat Glomerular Filtration Rate 91, BUN/Creatinine Ratio 23, Glucose Level 59*L, Calcium Level 8.3L 09/14/22 06:44: Glucometer 100 Assessment/Plan Assessment/Plan Assess & Plan/Chief Complaint AoC Respiratory failure Pulmonary Fibrosis Pulmonary Hypertension COPD -On Vapotherm Present oxygen requirement poses challenge to placement Present goal is to attempt weaning supplemental oxygen -Pt presently on O2 flow of 25, FiO2 of 55% -Fluid restriction to 1500 ml/day -Bumex -IS 10x/hr -Duoneb PRN, Incruse Ellipta Inhaler, and Albuterol -On Sildenafil -On Solumedrol Afib with RVR -S/P pacemaker placement (2018) -Cardiology consulted and appreciated -On Eliquis and Lopressor - PO Diltiazem -Did have an echocardiogram, which revealed an LVEF of 65-70%, with no major abnormalities noted -Tachycardia is improving, ranging from 80s-100s over the past 12 hours -Given improved rate control, referrals have been sent to [facility] [place] and [facility] -Patient has been accepted to [facility] and will transfer upon bed availability either on 09/15 or 09/16/22 -SS is following -PICC line placement d/t long-term care needs CARLA -BiPAP General debility -Consider PT/OT R MCA CVA, 2017 - Still has position deficits in leg, motor and strength almost back to normal -On Plavix, Aspirin, Zetia, and Lipitor HTN -On Lopressor HLD -On Zetia DM2 -Diabetic diet -On Novolog sliding scale GI PPX -Protonix Clinical Quality Measures Admission Status Admission Dx Acute on chronic respiratory failure requiring transfer from [facility] to now ICU on Vapotherm and BiPAP at high risk for intubation Atrial fibrillation (Follows with Dr. Carpenter) - AV block s/p pacemaker placement; rate and rhythm controlled. 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) - Still has position deficits in leg, motor and strength almost back to normal - On clopidegril and baby aspirin - Continue statin - COPD (Follows with [facility]) - Recent exacerbation - on 2L baseline, currently requiring more - continue incruse ellipta (LAMA) - DuoNebs PRN Pulmonary Fibrosis (diagnosed 3 months ago) - on sildenafil 20 - As above for COPD treatment PRN Urinary incontinence - Hodgson previous - Not currently taking reductase inhibitors/alpha blockers - Bladder scan for post void residual Hypertension - Hold home medication if normotensive T2DM - Monitor blood sugar - ISS as needed, adjust with exercise Hx of sleep apnea - Does not tolerate CPAP, uses 2L O2 NC at night - Baseline 2L Hematuria on 08/24/2022 -Hold anticoagulation and check urine UTI Pseudomonas Plan: Consult Cardiology Home meds O2 Monitor closely 08/22/2022: Patient doing well 08/23/2022: Eliquis 08/24/2022: Hold anticoagulation Check UA 08/25/2022: Change abx to Cipro and await UCx 08/26/2022: F/U on UCx Monitor closely 08/27/2022: Complete abx Hold OAC until UTI treated 08/28/2022: Monitor HR Appreciated Dr Barnes 08/29/2022: Restarted OAC yesterday Complete abx for UTI 08/30/2022: Complete abx 08/31/2022: Complete antibiotics today 09/01/2022: IV steroids DAYANA GABRIEL DO Sep 14, 2022 07:26
[2022-09-14] MEDS: SILDENAFIL 20 MG (REVATIO) TAB PO SCH (08:39)
[2022-09-14] MEDS: ASPIRIN 81 MG CHEW (CHILDREN'S ASA) PO SCH (08:39)
[2022-09-14] MEDS: APIXABAN 5 MG (ELIQUIS) TABLET PO SCH ×2 (08:40→21:27)
[2022-09-14] MEDS: SENNOSIDES 8.6 MG (SENOKOT) TAB PO SCH ×2 (08:40→21:27)
[2022-09-14] MEDS: SENNA W/DOCUSATE (SENOKOT S) TABLET PO SCH ×2 (08:40→21:27)
[2022-09-14] MEDS: polyethylene glycoL POWDER 17 GM (MIRALAX) PACK PO SCH ×2 (08:40→21:30)
[2022-09-14] MEDS: meTOproloL SUCCINATE 50 MG (TOPROL XL) TAB PO SCH (08:42)
[2022-09-14] MEDS ORDERED: BUMETANIDE 1 MG (BUMEX) TAB PO SCH (09:00)
[2022-09-14] MEDS: NEO/POLY/BAC (NEOSPORIN) OINT 15 GM TUBE TOP SCH ×2 (09:02→21:28)
[2022-09-14] MEDS: UMECLIDINIUM BROMIDE (INCRUSE ELLIPTA) 7'S IH SCH (10:24)
--- NOTE | 2022-09-14 13:46 | Progress Note - Cardiology ---
Cardiology SOAP Progress Note Subjective: No cp or palp or syncope Shortness of breath with activity Gen weakness and malaise No n/v/d Objective: I&O/Vital Signs 09/14/22 09/14/22 09/14/22 09/14/22 03:08 04:00 04:45 07:00 Temp 36.6 Pulse 73 71 80 Resp 17 13 B/P (MAP) 98/71 (80) Pulse Ox 98 O2 Delivery NIV Bilevel Vapotherm O2 Flow Rate 50.00 50.00 30.00 45.00 09/14/22 09/14/22 09/14/22 09/14/22 07:52 11:00 12:00 13:08 Temp 36.3 36.6 Pulse 85 101 96 Resp 20 15 B/P (MAP) 132/99 (110) 126/81 (96) Pulse Ox 99 92 O2 Delivery Vapotherm Vapotherm Vapotherm O2 Flow Rate 30.00 30.00 30.00 45.00 40.00 40.00 09/13/22 23:59 Intake Total 1750 ml Output Total 200 ml Balance 1550 ml Constitutional: AAO x 3, well-developed, well-nourished Respiratory: No accessory muscle use, No respiratory distress; chest expansion is symmetric, chest is bilaterally symmetric, other (diminished throughout; dyspneic with simple conversation) Cardiovascular: regular rate-rhythm, tachycardia, systolic murmur (soft ELDER at card base) Gastrointestional: No tender; soft, audible bowel sounds Extremities: No significant edema Neurologic/Psychiatric: oriented x 3, other (moves all limbs equally) Skin: normal color, warm/dry Results/Procedures: Labs Laboratory Tests 09/13/22 16:17: Glucometer 282H 09/13/22 20:36: Glucometer 237H 09/14/22 05:30: White Blood Count 12.0H, Red Blood Count 4.27L, Hemoglobin 13.9, Hematocrit 40, Mean Corpuscular Volume 95, Mean Corpuscular Hemoglobin 33, Mean Corpuscular Hemoglobin Concent 34, Red Cell Distribution Width 14.6H, Platelet Count 162, Mean Platelet Volume 9.9, Immature Granulocyte % (Auto) 6, Neutrophils (%) (Auto) 76H, Lymphocytes (%) (Auto) 9L, Monocytes (%) (Auto) 9, Eosinophils (%) (Auto) 0, Basophils (%) (Auto) 0, Neutrophils # (Auto) 9.1H, Lymphocytes # (Auto) 1.0, Monocytes # (Auto) 1.1H, Eosinophils # (Auto) 0.0, Basophils # (Auto) 0.0, Immature Granulocyte # (Auto) 0.8H, Sodium Level 137, Potassium Level 3.9, Chloride Level 99, Carbon Dioxide Level 28, Anion Gap 10, Blood Urea Nitrogen 19H, Creatinine 0.81, Estimat Glomerular Filtration Rate 91, BUN/Cr eatinine Ratio 23, Glucose Level 59*L, Calcium Level 8.3L 09/14/22 06:44: Glucometer 100 09/14/22 08:47: Glucometer 201H Laboratory Tests 09/14/22 05:30 A/P: Assessment: Postural dizziness, likely due to diuretic therapy Interstitial lung disease vs other pulmonary causes of pulmonary hypertension - management per eICU and Medical services Acute on chronic resp failure - Recent hospitalization at [facility] in [place], [place] d/t resp failure d/t pneumonia and Influenza A on 07-21-22 - transferred to [facility] in [place], [place] on 07-31-22 - admitted to [facility] in mid Aug 2022 - Pulmonary HTN of undetermined etiology - on sildenafil and chronic oxygen at home (prior to admission) - followed by Dr. Kaur of pulmonary services in [place], [place] - deteriorating resp status requiring transfer to ICU on 09-02-22 SSS. PAF with controlled vent response seen on tele of 08/23/22 (CHADSVASc score 6) - s/p pacemaker in 2019, followed by Dr Carpenter at [facility] - had been on apixaban for stroke prophylaxis since 08/23/22 - stopped (by medical services) d/t episode of hematuria - resumed on 08-28-22 - Echocardiogram of 09-02-22 showed LVEF 65-70%. Trivial AoR H/o HTN H/o HLD CARLA DM 2 H/o previous CVA - Alexa2016 - treated at [facility] - per pt source undetermined - no residual COPD H/o tobaccoism - quit 30 yrs ago Plan: * Complex management * Pulm htn and ac on ch resp failure management is with the Med and ICU svce * Resp failure does not appear to be primarily of cardiac origin (normal LVEF, normal BNP) * Bumex reduced on 09/12/22 because of postural dizziness * Advise transfer to tertiary care facility with pulmonology services - waiting on LTAC placement in [place] or [place] * Monitor labs from time to time EDUARDO LANE MD FACP FAC CCDS Sep 14, 2022 13:46
[2022-09-14 21:08] VITALS: BP 107/67
[2022-09-14] MEDS: eZETimibe 10 MG (ZETIA) TABLET PO SCH (21:27)
[2022-09-14 22:35] VITALS: BP 107/88
[2022-09-14 23:50] VITALS: BP 98/71
[2022-09-15] MEDS: LORazepam 0.5 MG (ATIVAN) TABLET PO PRN (01:47)
[2022-09-15] MEDS: RT-ALBUTEROL SULF 2.5 MG/3 ML PRE-MIX VIAL INH SCH ×4 (02:52→14:24)
[2022-09-15] MEDS: RT-IPRATROPIUM (ATROVENT) 0.5MG/2.5ML AMP IH SCH ×4 (02:52→14:24)
[2022-09-15 02:53] VITALS: BP 133/88
[2022-09-15] MEDS: ACETAMINOPHEN 325 MG TABLET PO PRN (04:05)
[2022-09-15] MEDS: UMECLIDINIUM BROMIDE (INCRUSE ELLIPTA) 7'S IH SCH (06:10)
[2022-09-15] MEDS: PANTOPRAZOLE 40 MG (PROTONIX) TAB PO SCH (06:23)
[2022-09-15] MEDS: inSUlin ASPART (NovoLOG) 1 UNIT/0.01 ML (CHARGE PER UNIT) SC SCH ×2 (06:23→11:39)
[2022-09-15] MEDS: predniSONE 20 MG TAB PO SCH (06:23)
[2022-09-15] MEDS: MULTIVIT W/MINERALS TAB (THERAGRAN M) PO SCH (06:23)
[2022-09-15] MEDS: inSUlin (REGULAR) HUMAN 1 UNIT/0.01 ML (CHARGE PER UNIT) SC SCH ×2 (06:23→11:39)
--- NOTE | 2022-09-15 09:06 | Physical Therapy Daily Note ---
PT Daily Note-Current Subjective Patient agrees to PT. Pain Section J - Health Conditions 1. Rarely or not at all 2. Occasionally 3. Frequently 4. Almost constantly 8. Unable to answer Pain Effect on Sleep: 1 Pain Interference with Therapy: 1 Pain Interference w/Day-to-Day: 1 Mental Status Patient Orientation: Person, Time, Situation Attachments: Oxygen (vapotherm) Transfers SCALE: Activities may be completed with or without assistive devices. 3-Bcxsrydcjy-zboupna completes the activity by him/herself with no assistance from a helper. 5-Set-up or Clean-up Assistance-helper sets up or cleans up; patient completes activity. [place] assists only prior to or following the activity. 4-Supervision or Touching Assistance-helper provides verbal cues and/or touching/steadying and/or contact guard assistance as patient completes activity. Assistance may be provided throughout the activity or intermittently. 3-Partial/Moderate Assistance-helper does LESS THAN HALF the effort. [place] lifts, holds or supports trunk or limbs, but provides less than half the effort. 2-Substantial/Maximal Assistance-helper does MORE THAN HALF the effort. [place] lifts or holds trunk or limbs and provides more than half the effort. 6-Sdibczunu-xknitc does ALL the effort. Patient does none of the effort to complete the activity. Or, the assistance of 2 or more helpers is required for the patient to complete the activity. If activity was not attempted, code reason: 7-Patient Refused. 9-Not Applicable-not attempted and the patient did not perform the activity before the current illness, exacerbation or injury. 10-Not Attempted due to Environmental Limitations-(lack of equipment, weather restraints, etc.). 88-Not Attempted due to Medical Conditions or Safety Concerns. Lying to Sitting/Side of Bed(Q: 4 Sit to Stand (QC): 4 Chair/Htp-lq-Lcbmr Xfer(QC): 4 Gait Training Distance: 5 steps Gait Assistive Device: FWW slightly unsteady on this date Assessment Patient continues to tolerate minimal activity and requires time to recover SAO2. PT to continue to address pulmonary function with functional mobility and exercise. PT Chcf Goals Before School Babysitter Goals PT Before School Babysitter Goals Time Frame: Sep 20, 2022 Roll Left & Right (QC): 6 Sit to Lying (QC): 6 Lying-Sitting on Side/Bed(QC): 6 Sit to Stand (QC): 6 Chair/Fwx-mv-Bxvqc Xfer(QC): 6 Toilet Transfer (QC): 6 Walk 10 feet (QC): 4 Walk 50ft with 2 Turns (QC): 4 PT Plan Treatment/Plan Treatment Plan: Continue Plan of Care Treatment Plan: Bed Mobility, Education, Functional Activity Cece, Functional Strength, Gait, Safety, Therapeutic Exercise, Transfers Treatment Duration: Sep 20, 2022 Frequency: 6 times per week Estimated Hrs Per Day: .25 hour per day Patient and/or Family Agrees t: Yes Time Time In: 832 Time Out: 842 DATE: Sep 15, 2022 Total Billed Treatment Time: 10 Total Billed Treatment 1 visit FA 10 min ISAIAH RUIZ PT Sep 15, 2022 09:06
[2022-09-15] MEDS: ASPIRIN 81 MG CHEW (CHILDREN'S ASA) PO SCH (09:23)
[2022-09-15] MEDS: SILDENAFIL 20 MG (REVATIO) TAB PO SCH (09:23)
[2022-09-15] MEDS: APIXABAN 5 MG (ELIQUIS) TABLET PO SCH (09:23)
[2022-09-15] MEDS: meTOproloL SUCCINATE 50 MG (TOPROL XL) TAB PO SCH (09:24)
[2022-09-15] MEDS: polyethylene glycoL POWDER 17 GM (MIRALAX) PACK PO SCH (09:33)
[2022-09-15] MEDS: NEO/POLY/BAC (NEOSPORIN) OINT 15 GM TUBE TOP SCH (09:33)
[2022-09-15] MEDS: SENNOSIDES 8.6 MG (SENOKOT) TAB PO SCH (09:34)
[2022-09-15] MEDS: SENNA W/DOCUSATE (SENOKOT S) TABLET PO SCH (09:34)
[2022-09-15 10:01] LABS: BASOPHILS % (AUTO) 0 % (0-10); EOSINOPHILS % (AUTO) 0 % (0-10); HEMATOCRIT 44 % (40-54); LYMPHOCYTES # (AUTO) 0.6 10^3/uL (1.0-4.0); LYMPHOCYTES % (AUTO) 5 % (12-44); MEAN CORPUSCULAR HEMOGLOBIN 32 pg (25-34); MEAN CORPUSCULAR HGB CONC 34 g/dL (32-36); MEAN CORPUSCULAR VOLUME 94 fL (80-99); MEAN PLATELET VOLUME 9.7 fL (9.0-12.2); MONOCYTES # (AUTO) 1.1 10^3/uL (0.0-1.0); MONOCYTES % (AUTO) 9 % (0-12); NEUTROPHILS # (AUTO) 9.9 10^3/uL (1.8-7.8); NEUTROPHILS % (AUTO) 80 % (42-75); PLATELET COUNT 152 10^3/uL (130-400); WHITE BLOOD COUNT 12.4 10^3/uL (4.3-11.0)
[2022-09-15 10:09] LABS: ALBUMIN 3.1 GM/DL (3.2-4.5)
[2022-09-15 10:10] LABS: POTASSIUM 4.5 MMOL/L (3.6-5.0)
[2022-09-15 10:11] LABS: CALCIUM 8.4 MG/DL (8.5-10.1)
--- NOTE | 2022-09-15 10:11 | Progress Note ---
JEANNINEHARJINDER LAURENT 09/15/22 1010: Subjective Date Seen by a Provider: Sep 15, 2022 Time Seen by a Provider: 08:00 Subjective/Events-last exam Upon follow-up for AoC respiratory failure and Afib with RVR, Gulshan is sitting upright in his recliner, eating breakfast, with vapotherm in place (O2 flow 30, FiO2 45). He states that he slept well, has an appetite, and denies any pain. He further endorses a bowel movement yesterday. Of note, he is having difficulty tolerating BiPAP due to headaches from the mask. Gulshan denies any nausea, vomiting, chills, or fever. 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 Hospital Course: Gulshan Mackenzie is a pleasant 77 yo M with a history of AoC respiratory, Afib with RVR S/P pacemaker, pulmonary fibrosis, pulmonary HTN, COPD exacerbation, who initially presented to [facility] on 08/21 from [facility], and is preparing to be discharged to LTAC, presumably [facility] in . He was admitted to Inpatient Rehab on 08/21/2022. Per admission note: "Gulshan Mackenzie is a 77-year-old male with history of a-fib s/p pacemaker placement, pulmonary fibrosis, COPD with recent exacerbation, CVA, hypertension, and hyperlipidemia who was admitted to acute rehab at [facility] on 08/21 following hospitalization 07/31- 08/21/22 from [facility] for weakness and debilitation following COPD exacerbation secondary to viral pneumonia. While at [facility] he was treated with IV ceftriaxone and cefepime which also covered for a UTI which grew pseudomonas. He endorses a non- productive cough, and shortness of breath as well as his position sensory defici ts on his left side. Denies chest pain, abdominal pain, vision/hearing changes. Bowels are moving, and upon standing he has leakage of urine. Plan to go back home with son and Daughter in law upon discharge." He had been working with PT/OT to improve strength and endurance. Cardiology has been following him since admit for chronic Afib and tachycardia. Yesterday on 09/01/2022, patient was transferred to the Cardiac Step-down Unit due to increased dyspnea. He denied chest pain and felt that is shortness of breath was "okay". Today (09/01/22) he is alert and oriented while resting in bed. He appears to be in no acute distress. He is on BIPAP at 50% O2 flow rate. Denies any pain and feels that his breathing is "okay". He has not been ambulating since moving to the cardiac unit. Last bowel movement was yesterday and he is eating independently. Chest x-ray this morning (09/02) notes "5 lobed largely interstitial pulmonary opacities with interval reduction in lung volumes." The patient regularly sees Dr. Kaur for pulmonology. When asked this morning of his opinion on going on a ventilator, the patient reports he does not want to be placed on one, but is unsure about the decision if there comes a point that he needs to be on a vent. Dr. Gabriel spoke with the patient's daughter, Karrie, last night and this morning about the ICU transfer and the probable need for placement on a ventilator. On 09/02/22, Gulshan was transferred to the ICU for AFib with RVR. Patient continued to be followed by cardiology. Primary focus was to achieve rate control, as patient's heart rate was in the 120-130 BPM. On 09/08/22. Gulshan returned to the Cardiac step down unit due to improving rate control. From 09/08/22 - 09/15/22, the primary goal has been to slowly wean oxygen needs and maintain rate control for LTAC placement. Presently, patient is accepted to [facility] in [place], [place]. Gulshan is presently on Vapotherm at 30% O2 flow rate, and FiO2 of 45%. Denies any pain and feels that his breathing is "okay". He has been working to move from bed to recliner, and to the commode. Last bowel movement was this morning and he is eating independently. CXR this AM (09/15) states: "Low lung volumes and cardiomegaly with interstitial and airspace opacities seen throughout the lungs. Findings can be seen with atelectasis, pulmonary edema, or pneumonia." Review of Systems General: No Chills, No Night Sweats HEENT: Head Aches; No Visual Changes Pulmonary: Dyspnea; No Cough Cardiovascular: No: Chest Pain, Palpitations Gastrointestinal: No: Nausea, Vomiting, Abdominal Pain Genitourinary: No Dysuria, No Frequency Musculoskeletal: No: neck pain, shoulder pain Neurological: Weakness; No: Numbness Objective Exam Last Set of Vital Signs Vital Signs Date Time Temp Pulse Resp B/P (MAP) Pulse Ox O2 Delivery O2 Flow Rate FiO2 09/15/22 07:18 92 09/15/22 06:10 96 Vapotherm 30.00 45 09/15/22 04:00 36.2 24 120/75 (90) Capillary Refill : Less Than 3 Seconds I&O Intake and Output 09/15/22 00:00 Intake Total 1148 ml Output Total 350 ml Balance 798 ml Intake Oral 1148 ml Output Urine Total 350 ml # Urine Diapers 5 # Bowel Movements 2 General: Alert, Oriented X3, Cooperative HEENT: Atraumatic, PERRLA Neck: Supple, No JVD Lungs: Clear to Auscultation, Other (decreased breath sounds) Heart: Regular Rate, No Murmurs Abdomen: Normal Bowel Sounds, Soft Extremities: No Clubbing, No Cyanosis Skin: No Rashes, No Breakdown Neuro: Normal Speech Psych/Mental Status: Mental Status NL, Mood NL Results Lab Laboratory Tests 09/14/22 16:03: Glucometer 361H 09/14/22 21:19: Glucometer 143H 09/15/22 06:22: Glucometer 134H 09/15/22 09:40: White Blood Count 12.4H, Red Blood Count 4.67, Hemoglobin 15.0, Hematocrit 44, Mean Corpuscular Volume 94, Mean Corpuscular Hemoglobin 32, Mean Corpuscular Hemoglobin Concent 34, Red Cell Distribution Width 14.8H, Platelet Count 152, Mean Platelet Volume 9.7, Immature Granulocyte % (Auto) 6, Neutrophils (%) (Auto) 80H, Lymphocytes (%) (Auto) 5L, Monocytes (%) (Auto) 9, Eosinophils (%) (Auto) 0, Basophils (%) (Auto) 0, Neutrophils # (Auto) 9.9H, Lymphocytes # (Auto) 0.6L, Monocytes # (Auto) 1.1H, Eosinophils # (Auto) 0.0, Basophils # (Auto) 0.0, Immature Granulocyte # (Auto) 0.8H Radiology Date of Exam:09/13/22 CHEST 1 VIEW, AP/PA ONLY EXAMINATION: Chest 1 view HISTORY: Dyspnea COMPARISON: 09/12/2022 FINDINGS: Heart size is enlarged with prominence of pulmonary vasculature. Left-sided cardiac device is unchanged. Low lung volumes with patchy interstitial airspace opacities seen within the lungs. No significant pleural effusion or pneumothorax. Degenerative changes of the thoracic spine. Osseous structures are otherwise intact. IMPRESSION: 1. Low lung volumes and cardiomegaly with interstitial and airspace opacities seen throughout the lungs. Findings can be seen with atelectasis, pulmonary edema, or pneumonia. Assessment/Plan Assessment/Plan Assess & Plan/Chief Complaint AoC Respiratory failure Pulmonary Fibrosis Pulmonary Hypertension COPD -On Vapotherm Present oxygen requirement poses challenge to placement Present goal is to attempt weaning supplemental oxygen -Pt presently on O2 flow of 25, FiO2 of 55% -Fluid restriction to 1500 ml/day -Bumex -IS 10x/hr -Duoneb PRN, Incruse Ellipta Inhaler, and Albuterol -On Sildenafil Afib with RVR -S/P pacemaker placement (2019) -Cardiology consulted and appreciated -On Eliquis and Lopressor - PO Diltiazem in addition to 125ml IVP @ 5mls/hr -Did have an echocardiogram, which revealed an LVEF of 65-70%, with no major abnormalities noted -Rate controlled -Given improved rate control, referrals have been sent to [facility] [place] and [facility] -Patient has been accepted to [facility] and will transfer upon bed availability either on 09/15 or 09/16/22 -SS is following -PICC line placement d/t long-term care needs CARLA -BiPAP General debility -Consider PT/OT R MCA CVA, 2017 - Still has position deficits in leg, motor and strength almost back to normal -On Plavix, Aspirin, Zetia, and Lipitor HTN -On Lopressor HLD -On Zetia DM2 -Diabetic diet -On Novolog sliding scale GI PPX -Protonix LIYAH GABRIEL DO 09/16/22 [id number]: Supervisory-Addendum Brief Verification & Attestation Participated in pt care: history, MDM, physical Personally performed: exam, history, MDM, supervision of care Care discussed with: Medical Student Procedures: n/a Results interpretation: Verified all documentation Verification and Attestation of Medical Student E/M Service A medical student performed and documented this service in my presence. I review ed and verified all information documented by the medical student and made modifications to such information, when appropriate. I personally performed the physical exam and medical decision making. Liyah Gabriel, Sep 16, 2022,04:50 HARJINDER OLEARY Sep 15, 2022 10:10 LIYAH GABRIEL DO Sep 16, 2022 04:51
[2022-09-15 10:12] LABS: TOTAL PROTEIN 5.9 GM/DL (6.4-8.2)
[2022-09-15 10:14] LABS: BILIRUBIN,TOTAL 0.7 MG/DL (0.1-1.0)
[2022-09-15 10:16] LABS: CREATININE SERUM 1.29 MG/DL (0.60-1.30)
[2022-09-15 10:36] LABS: BAND NEUTROPHILS 5 %; LYMPHOCYTES % (MANUAL) 5 %; MONOCYTES % (MANUAL) 8 %; NEUTROPHILS % (MANUAL) 81 %
[2022-09-15 10:38] LABS: METAMYELOCYTES % 1 %; POLYCHROMASIA SLIGHT
--- NOTE | 2022-09-15 10:50 | Cardiology Progress Note ---
Subjective Date Seen by Provider: Sep 15, 2022 Time Seen by Provider: 10:50 Subjective/Events-last exam Patient was seen at bedside, laying down comfortably, Maintained on Vapotherm Review of Systems General: No Chills, No Night Sweats; Fatigue, Malaise; No Appetite, No Other HEENT: No Head Aches, No Visual Changes, No Eye Pain, No Ear Pain, No Dysphasia, No Sinus Congestion, No Post Nasal Drip, No Sore Throat, No Other Pulmonary: Dyspnea; No Cough, No Pleuritic Chest Pain, No Other Cardiovascular: No: Chest Pain, Palpitations, Orthopnea, Paroxysmal Noc. Dyspnea, Edema, Lt Headedness, Other Objective-Cardiology Exam Last Set of Vital Signs Vital Signs 09/15/22 09/15/22 09/15/22 04:00 08:00 10:04 Temp 36.2 Pulse 86 Resp 15 B/P (MAP) 105/79 (88) Pulse Ox 96 O2 Delivery Vapotherm O2 Flow Rate 30.00 FiO2 45 I&O Intake and Output 09/15/22 00:00 Intake Total 1148 ml Output Total 350 ml Balance 798 ml Intake Oral 1148 ml Output Urine Total 350 ml # Urine Diapers 5 # Bowel Movements 2 General: Alert, Oriented X3, Cooperative HEENT: Atraumatic, PERRLA Neck: Supple, No JVD Lungs: Other (decreased breath sounds) Heart: Regular Rate, No Murmurs Abdomen: Normal Bowel Sounds, Soft Extremities: No Clubbing, No Cyanosis Skin: No Rashes, No Breakdown Neuro: Normal Speech Psych/Mental Status: Mental Status NL, Mood NL Results Lab Laboratory Tests 09/15/22 09:40 A/P-Cardiology Admission Diagnosis Acute respiratory failure Paroxysmal atrial fibrillation Sinus node dysfunction Cardiac pacemaker Assessment/Plan Acute on chronic respiratory failure, still on Vapotherm History of interstitial lung disease Patient was hospitalized at [facility] in July 2022 and transferred to [place]. Patient was in acute rehab and deteriorated and transferred to ICU. Sinus node dysfunction, paroxysmal atrial fibrillation Sinus tachycardic at this time, had history of pacemaker implanted by Dr. Durbin Patient was maintained on oral anticoagulation. History of CVA, maintained on aspirin, Eliquis and statin [id number] score of 6, maintained on Eliquis Hypertension, continue to monitor blood pressure Hyperlipidemia, monitor lipids Diabetes mellitus, followed and managed by primary care physician COPD, interstitial lung disease XIMENA ACOSTA MD Sep 15, 2022 10:50
[2022-09-15] MEDS ORDERED: UMEC62.5 IH (13:14)
[2022-09-15] MEDS ORDERED: BUME1TAB8 PO (13:14)
[2022-09-15] MEDS ORDERED: METO50TA7 PO (13:14)
[2022-09-15] MEDS ORDERED: APIX5TAB PO (13:14)
[2022-09-15] MEDS ORDERED: PANT40TA52 PO (13:14)
[2022-09-15] MEDS ORDERED: INSU100V5 SQ (13:14)
--- NOTE | 2022-09-15 13:14 | Discharge Summary ---
Diagnosis/Chief Complaint Date of Admission Sep 01, 2022 at 21:36 Date of Discharge Discharge Date: Sep 15, 2022 Discharge Diagnosis AoC Respiratory failure Pulmonary Fibrosis Pulmonary Hypertension COPD -On Vapotherm Present oxygen requirement poses challenge to placement Present goal is to attempt weaning supplemental oxygen -Pt presently on O2 flow of 25, FiO2 of 55% -Fluid restriction to 1500 ml/day -Bumex -IS 10x/hr -Duoneb PRN, Incruse Ellipta Inhaler, and Albuterol -On Sildenafil Afib with RVR -S/P pacemaker placement (2018) -Cardiology consulted and appreciated -On Eliquis and Lopressor - PO Diltiazem in addition to 125ml IVP @ 5mls/hr -Did have an echocardiogram, which revealed an LVEF of 65-70%, with no major abnormalities noted -Rate controlled -Given improved rate control, referrals have been sent to [facility] in [place] and [facility] -Patient has been accepted to [facility] and will transfer upon bed availability either on 09/15 or 09/16/22 -SS is following -PICC line placement d/t long-term care needs CARLA -BiPAP General debility -Consider PT/OT R MCA CVA, 2017 - Still has position deficits in leg, motor and strength almost back to normal -On Plavix, Aspirin, Zetia, and Lipitor HTN -On Lopressor HLD -On Zetia DM2 -Diabetic diet -On Novolog sliding scale GI PPX -Protonix Discharge Summary Discharge Physical Examination Allergies: Coded Allergies: No Known Allergies (Verified Allergy, Unknown, 08/21/22) Vitals & I&Os Vital Signs Date Time Temp Pulse Resp B/P (MAP) Pulse Ox O2 Delivery O2 Flow Rate FiO2 09/15/22 20:08 36.7 101 25 120/100 (107) 09/15/22 14:24 93 Vapotherm 20.00 45 Hospital Course Was the Problem List Reviewed?: Yes Upon follow-up for AoC respiratory failure and Afib with RVR, Gulshan is sitting upright in his recliner, eating breakfast, with vapotherm in place (O2 flow 30, FiO2 45). He states that he slept well, has an appetite, and denies any pain. He further endorses a bowel movement yesterday. Of note, he is having difficulty tolerating BiPAP due to headaches from the mask. Gulshan denies any nausea, vomiting, chills, or fever. 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 Hospital Course: Gulshan Mackenzie is a pleasant 77 yo M with a history of AoC respiratory, Afib with RVR S/P pacemaker, pulmonary fibrosis, pulmonary HTN, COPD exacerbation, who initially presented to [facility] on 08/21 from [facility], and is preparing to be discharged to LTAC, presumably [facility] in . He was admitted to Inpatient Rehab on 08/21/2022. Per admission note: "Gulshan Mackenzie is a 77-year-old male with history of a-fib s/p pacemaker placement, pulmonary fibrosis, COPD with recent exacerbation, CVA, hypertension, and hyperlipidemia who was admitted to acute rehab at [facility] on 08/21 following hospitalization 07/31- 08/21/22 from [facility] for weakness and debilitation following COPD exacerbation secondary to viral pneumonia. While at [facility] he was treated with IV ceftriaxone and cefepime which also covered for a UTI which grew pseudomonas. He endorses a non- productive cough, and shortness of breath as well as his position sensory deficits on his left side. Denies chest pain, abdominal pain, vision/hearing changes. Bowels are moving, and upon standing he has leakage of urine. Plan to go back home with son and Daughter in law upon discharge." He had been working with PT/OT to improve strength and endurance. Cardiology has been following him since admit for chronic Afib and tachycardia. Yesterday on 09/01/2022, patient was transferred to the Cardiac Step-down Unit due to increased dyspnea. He denied chest pain and felt that is shortness of breath was "okay". Today (09/01/22) he is alert and oriented while resting in bed. He appears to be in no acute distress. He is on BIPAP at 50% O2 flow rate. Denies any pain and feels that his breathing is "okay". He has not been ambulating since moving to the cardiac unit. Last bowel movement was yesterday and he is eating independently. Chest x-ray this morning (09/02) notes "5 lobed largely interstitial pulmonary opacities with interval reduction in lung volumes." The patient regularly sees Dr. Kaur for pulmonology. When asked this morning of his opinion on going on a ventilator, the patient reports he does not want to be placed on one, but is unsure about the decision if there comes a point that he needs to be on a vent. Dr. Rust spoke with the patient's daughter, Karrie, last night and this morning about the ICU transfer and the probable need for placement on a ventilator. On 09/02/22, Gulshan was transferred to the ICU for AFib with RVR. Patient continued to be followed by cardiology. Primary focus was to achieve rate control, as patient's heart rate was in the 120-130 BPM. On 09/08/22. Gulshan returned to the Cardiac step down unit due to improving rate control. From 09/08/22 - 09/15/22, the primary goal has been to slowly wean oxygen needs and maintain rate control for LTAC placement. Presently, patient is accepted to [facility] in [place], [place]. Gulshan is presently on Vapotherm at 30% O2 flow rate, and FiO2 of 45%. Denies any pain and feels that his breathing is "okay". He has been working to move from bed to recliner, and to the commode. Last bowel movement was this morning and he is eating independently. CXR this AM (09/15) states: "Low lung volumes and cardiomegaly with interstitial and airspace opacities seen throughout the lungs. Findings can be seen with atelectasis, pulmonary edema, or pneumonia." Labs (last 24 hrs) Laboratory Tests 09/02/22 04:17: White Blood Count 5.8, Red Blood Count 4.28L, Hemoglobin 13.8, Hematocrit 40, Mean Corpuscular Volume 94, Mean Corpuscular Hemoglobin 32, Mean Corpuscular Hemoglobin Concent 34, Red Cell Distribution Width 15.2H, Platelet Count 129L, Mean Platelet Volume 10.0, Immature Granulocyte % (Auto) 1, Neutrophils (%) (Auto) 82H, Lymphocytes (%) (Auto) 15, Monocytes (%) (Auto) 2, Eosinophils (%) (Auto) 0, Basophils (%) (Auto) 0, Neutrophils # (Auto) 4.8, Lymphocytes # (Auto) 0.9L, Monocytes # (Auto) 0.1, Eosinophils # (Auto) 0.0, Basophils # (Auto) 0.0, Immature Granulocyte # (Auto) 0.1, Sodium Level 136, Potassium Level 4.3, Chloride Level 100, Carbon Dioxide Level 23, Anion Gap 13, Blood Urea Nitrogen 22H, Creatinine 1.03, Estimat Glomerular Filtration Rate 75, BUN/Creatinine Ratio 21, Glucose Level 251H, Calcium Level 9.3, Corrected Calcium 9.9, Total Bilirubin 0.9, Aspartate Amino Transf (AST/SGOT) 30, Alanine Aminotransferase (ALT/SGPT) 71H, Alkaline Phosphatase 69, B-Type Natriuretic Peptide 34.1, Total Protein 6.8, Albumin 3.3 09/02/22 05:27: Blood Gas Puncture Site UNK, Blood Gas Patient Temperature 36.3, Arterial Blood pH 7.41, Arterial Blood Partial Pressure CO2 41, Arterial Blood Partial Pressure O2 118H, Arterial Blood HCO3 26, Arterial Blood Total CO2 27.0, Arterial Blood Oxygen Saturation 100, Arterial Blood Base Excess 1.4, Andrea Test YES-POS, Blood Gas Ventilator Setting NO, Blood Gas Inspired Oxygen 50% 09/02/22 12:43: Procalcitonin 0.04 09/03/22 03:57: White Blood Count 14.7H, Red Blood Count 4.17L, Hemoglobin 13.3, Hematocrit 40, Mean Corpuscular Volume 95, Mean Corpuscular Hemoglobin 32, Mean Corpuscular Hemoglobin Concent 34, Red Cell Distribution Width 15.9H, Platelet Count 156, Mean Platelet Volume 10.3, Immature Granulocyte % (Auto) 2, Neutrophils (%) (Auto) 87H, Lymphocytes (%) (Auto) 4L, Monocytes (%) (Auto) 7, Eosinophils (%) (Auto) 0, Basophils (%) (Auto) 0, Neutrophils # (Auto) 12.8H, Lymphocytes # (Auto) 0.6L, Monocytes # (Auto) 1.0, Eosinophils # (Auto) 0.0, Basophils # (Auto) 0.0, Immature Granulocyte # (Auto) 0.3H, Sodium Level 135, Potassium Level 4.0, Chloride Level 98, Carbon Dioxide Level 19L, Anion Gap 18H, Blood Urea Nitrogen 30H, Creatinine 1.21, Estimat Glomerular Filtration Rate 62, BUN/Creatinine Ratio 25, Glucose Level 298H, Calcium Level 9.1, Corrected Calcium 9.7, Total Bilirubin 0.7, Aspartate Amino Transf (AST/SGOT) 24, Alanine Aminotransferase (ALT/SGPT) 57H, Alkaline Phosphatase 67, Total Protein 6.6, Albumin 3.3, Neutrophils % (Manual) 86, Lymphocytes % (Manual) 4, Monocytes % (Manual) 7, Band Neutrophils 3, Anisocytosis SLIGHT, Phosphorus Level 3.3, Magnesium Level 2.2 09/03/22 04:50: Blood Gas Puncture Site R RAD, Blood Gas Patient Temperature 37.3, Arterial Blood pH 7.41, Arterial Blood Partial Pressure CO2 36, Arterial Blood Partial Pressure O2 67L, Arterial Blood HCO3 23, Arterial Blood Total CO2 23.7, Arterial Blood Oxygen Saturation 93L, Arterial Blood Base Excess -1.3, Andrea Test YES- POS, Blood Gas Ventilator Setting NO, Blood Gas Inspired Oxygen 40% 09/03/22 20:43: Glucometer 288H 09/04/22 04:30: White Blood Count 13.0H, Red Blood Count 4.11L, Hemoglobin 13.0L, Hematocrit 39L , Mean Corpuscular Volume 95, Mean Corpuscular Hemoglobin 32, Mean Corpuscular Hemoglobin Concent 33, Red Cell Distribution Width 16.2H, Platelet Count 149, Mean Platelet Volume 9.9, Immature Granulocyte % (Auto) 2, Neutrophils (%) (Auto) 88H, Lymphocytes (%) (Auto) 4L, Monocytes (%) (Auto) 5, Eosinophils (%) (Auto) 1, Basophils (%) (Auto) 0, Neutrophils # (Auto) 11.5H, Lymphocytes # (Auto) 0.5L, Monocytes # (Auto) 0.7, Eosinophils # (Auto) 0.1, Basophils # (Auto) 0.0, Immature Granulocyte # (Auto) 0.3H, Sodium Level 137, Potassium Level 4.4, Chloride Level 100, Carbon Dioxide Level 23, Anion Gap 14, Blood Urea Nitrogen 28H, Creatinine 1.06, Estimat Glomerular Filtration Rate 73, BUN/Creatinine Ratio 26, Glucose Level 264H, Calcium Level 9.1, Corrected Calcium 9.7, Phosphorus Level 3.4, Magnesium Level 2.3, Total Bilirubin 0.9, Aspartate Amino Transf (AST/SGOT) 42H, Alanine Aminotransferase (ALT/SGPT) 81H, Alkaline Phosphatase 63, Total Protein 6.3L, Albumin 3.2 09/04/22 05:27: Blood Gas Puncture Site LRAD, Blood Gas Patient Temperature 36.8, Arterial Blood pH 7.42, Arterial Blood Partial Pressure CO2 45, Arterial Blood Partial Pressure O2 82, Arterial Blood HCO3 29H, Arterial Blood Total CO2 30.0, Arterial Blood Oxygen Saturation 94, Arterial Blood Base Excess 4.2H, Andrea Test YES-POS, Blood Gas Ventilator Setting NO, Blood Gas Inspired Oxygen 50% 09/04/22 10:28: Glucometer 298H 09/04/22 15:46: Glucometer 246H 09/04/22 20:18: Glucometer 286H 09/05/22 03:50: White Blood Count 10.0, Red Blood Count 4.05L, Hemoglobin 13.0L, Hematocrit 39L, Mean Corpuscular Volume 97, Mean Corpuscular Hemoglobin 32, Mean Corpuscular Hemoglobin Concent 33, Red Cell Distribution Width 15.9H, Platelet Count 160, Mean Platelet Volume 10.2, Immature Granulocyte % (Auto) 2, Neutrophils (%) (Auto) 86H, Lymphocytes (%) (Auto) 5L, Monocytes (%) (Auto) 6, Eosinophils (%) (Auto) 0, Basophils (%) (Auto) 0, Neutrophils # (Auto) 8.7H, Lymphocytes # (Auto) 0.5L, Monocytes # (Auto) 0.6, Eosinophils # (Auto) 0.0, Basophils # (Auto) 0.0, Immature Granulocyte # (Auto) 0.2H, Sodium Level 139, Potassium Level 4.3, Chloride Level 103, Carbon Dioxide Level 25, Anion Gap 11, Blood Urea Nitrogen 31H, Creatinine 1.04, Estimat Glomerular Filtration Rate 74, BUN/Creatinine Ratio 30, Glucose Level 248H, Calcium Level 8.9, Corrected Calcium 9.7, Phosphorus Level 3.6, Magnesium Level 2.4, Total Bilirubin 1.0, Aspartate Amino Transf (AST/SGOT) 29, Alanine Aminotransferase (ALT/SGPT) 65H, Alkaline Phosphatase 64, B-Type Natriuretic Peptide 41.3, Total Protein 6.0L, Albumin 3.0L, Procalcitonin 0.03 09/05/22 10:52: Glucometer 320H 09/05/22 15:47: Glucometer 180H 09/05/22 20:43: Glucometer 248H 09/06/22 03:05: White Blood Count 9.3, Red Blood Count 4.44, Hemoglobin 14.3, Hematocrit 43, Mean Corpuscular Volume 96, Mean Corpuscular Hemoglobin 32, Mean Corpuscular Hemoglobin Concent 34, Red Cell Distribution Width 15.6H, Platelet Count 176, Mean Platelet Volume 9.8, Immature Granulocyte % (Auto) 2, Neutrophils (%) (Auto) 86H, Lymphocytes (%) (Auto) 7L, Monocytes (%) (Auto) 4, Eosinophils (%) (Auto) 0, Basophils (%) (Auto) 0, Neutrophils # (Auto) 8.0H, Lymphocytes # (Auto) 0.6L, Monocytes # (Auto) 0.4, Eosinophils # (Auto) 0.0, Basophils # (Auto) 0.0, Immature Granulocyte # (Auto) 0.2H, Sodium Level 139, Potassium Level 4.2, Chloride Level 99, Carbon Dioxide Level 27, Anion Gap 13, Blood Urea Nitrogen 29H, Creatinine 0.93, Estimat Glomerular Filtration Rate 85, BUN/Creatinine Ratio 31, Glucose Level 252H, Calcium Level 9.0, Corrected Calcium 9.5, Phosphorus Level 3.8, Magnesium Level 2.4, Total Bilirubin 1.2H, Aspartate Amino Transf (AST/SGOT) 62H, Alanine Aminotransferase (ALT/SGPT) 144H, Alkaline Phosphatase 66, Total Protein 6.5, Albumin 3.4 09/06/22 04:20: Blood Gas Puncture Site L RAD, Blood Gas Patient Temperature 36.8, Arterial Blood pH 7.42, Arterial Blood Partial Pressure CO2 52H, Arterial Blood Partial Pressure O2 53L, Arterial Blood HCO3 33H, Arterial Blood Total CO2 35.0H, Arterial Blood Oxygen Saturation 83L, Arterial Blood Base Excess 8.7H, Andrea Test YES-POS, Blood Gas Ventilator Setting NO, Blood Gas Inspired Oxygen 50% 09/06/22 05:58: Glucometer 269H 09/06/22 10:21: Glucometer 262H 09/06/22 15:54: Glucometer 217H 09/06/22 20:18: Glucometer 247H 09/07/22 02:49: White Blood Count 10.1, Red Blood Count 4.22L, Hemoglobin 13.5, Hematocrit 40, Mean Corpuscular Volume 96, Mean Corpuscular Hemoglobin 32, Mean Corpuscular Hemoglobin Concent 34, Red Cell Distribution Width 15.2H, Platelet Count 177, Mean Platelet Volume 9.7, Immature Granulocyte % (Auto) 2, Neutrophils (%) (Auto) 87H, Lymphocytes (%) (Auto) 5L, Monocytes (%) (Auto) 5, Eosinophils (%) (Auto) 0, Basophils (%) (Auto) 0, Neutrophils # (Auto) 8.8H, Lymphocytes # (Auto) 0.5L, Monocytes # (Auto) 0.5, Eosinophils # (Auto) 0.0, Basophils # (Auto) 0.0, Immature Granulocyte # (Auto) 0.2H, Sodium Level 139, Potassium Level 4.3, Chloride Level 99, Carbon Dioxide Level 30, Anion Gap 10, Blood Urea Nitrogen 29H, Creatinine 0.96, Estimat Glomerular Filtration Rate 82, BUN/Cr eatinine Ratio 30, Glucose Level 232H, Calcium Level 8.6, Corrected Calcium 9.3, Phosphorus Level 4.2, Magnesium Level 2.5H, Total Bilirubin 1.2H, Aspartate Amino Transf (AST/SGOT) 26, Alanine Aminotransferase (ALT/SGPT) 98H, Alkaline Phosphatase 57, Total Protein 5.8L, Albumin 3.1L 09/07/22 05:36: Glucometer 225H 09/07/22 10:47: Glucometer 384H 09/07/22 15:27: Glucometer 263H 09/07/22 20:35: Glucometer 292H 09/08/22 04:27: White Blood Count 9.2, Red Blood Count 4.26L, Hemoglobin 13.6, Hematocrit 40, Mean Corpuscular Volume 95, Mean Corpuscular Hemoglobin 32, Mean Corpuscular Hemoglobin Concent 34, Red Cell Distribution Width 14.6H, Platelet Count 185, Mean Platelet Volume 10.0, Immature Granulocyte % (Auto) 5, Neutrophils (%) (Auto) 83H, Lymphocytes (%) (Auto) 4L, Monocytes (%) (Auto) 8, Eosinophils (%) (Auto) 0, Basophils (%) (Auto) 0, Neutrophils # (Auto) 7.6, Lymphocytes # (Auto) 0.4L, Monocytes # (Auto) 0.7, Eosinophils # (Auto) 0.0, Basophils # (Auto) 0.0, Immature Granulocyte # (Auto) 0.4H, Neutrophils % (Manual) 84, Lymphocytes % (Manual) 6, Prolymphocyte % 2, Monocytes % (Manual) 8, Blood Morphology Comment NORMAL, Sodium Level 138, Potassium Level 4.3, Chloride Level 98, Carbon Dioxide Level 28, Anion Gap 12, Blood Urea Nitrogen 35H, Creatinine 1.15, Estimat Glomerular Filtration Rate 66, BUN/Creatinine Ratio 30, Glucose Level 273H, Calcium Level 8.6, Corrected Calcium 9.4, Magnesium Level 2.4, Total Bilirubin 1.1H, Aspartate Amino Transf (AST/SGOT) 20, Alanine Aminotransferase (ALT/SGPT) 70H, Alkaline Phosphatase 53, Total Protein 5.8L, Albumin 3.0L 09/08/22 11:50: Glucometer 383H 09/08/22 16:28: Glucometer 259H 09/08/22 20:37: Glucometer 282H 09/09/22 03:34: White Blood Count 9.3, Red Blood Count 4.18L, Hemoglobin 13.5, Hematocrit 40, Mean Corpuscular Volume 96, Mean Corpuscular Hemoglobin 32, Mean Corpuscular Hemoglobin Concent 34, Red Cell Distribution Width 14.6H, Platelet Count 179, Mean Platelet Volume 10.1, Immature Granulocyte % (Auto) 5, Neutrophils (%) (Auto) 82H, Lymphocytes (%) (Auto) 4L, Monocytes (%) (Auto) 9, Eosinophils (%) (Auto) 0, Basophils (%) (Auto) 0, Neutrophils # (Auto) 7.6, Lymphocytes # (Auto) 0.4L, Monocytes # (Auto) 0.8, Eosinophils # (Auto) 0.0, Basophils # (Auto) 0.0, Immature Granulocyte # (Auto) 0.5H, Sodium Level 137, Potassium Level 4.4, Chlor mine Level 98, Carbon Dioxide Level 31, Anion Gap 8, Blood Urea Nitrogen 27H, Creatinine 1.02, Estimat Glomerular Filtration Rate 76, BUN/Creatinine Ratio 26, Glucose Level 237H, Calcium Level 8.4L, Corrected Calcium 9.2, Magnesium Level 2.3, Total Bilirubin 1.1H, Aspartate Amino Transf (AST/SGOT) 19, Alanine Aminotransferase (ALT/SGPT) 63H, Alkaline Phosphatase 55, Total Protein 5.7L, Albumin 3.0L 09/09/22 04:19: Blood Gas Puncture Site L RAD, Blood Gas Patient Temperature 36.4, Arterial Blood pH 7.44H, Arterial Blood Partial Pressure CO2 49H, Arterial Blood Partial Pressure O2 91, Arterial Blood HCO3 34H, Arterial Blood Total CO2 35.1H, Arterial Blood Oxygen Saturation 98, Arterial Blood Base Excess 9.1H, Andrea Test YES-POS, Blood Gas Ventilator Setting NO, Blood Gas Inspired Oxygen 40% 09/09/22 11:00: Glucometer 312H 09/09/22 15:15: Glucometer 273H 09/09/22 20:34: Glucometer 168H 09/10/22 03:25: White Blood Count 10.2, Red Blood Count 4.31, Hemoglobin 14.0, Hematocrit 41, Mean Corpuscular Volume 94, Mean Corpuscular Hemoglobin 33, Mean Corpuscular Hemoglobin Concent 35, Red Cell Distribution Width 14.3, Platelet Count 180, Mean Platelet Volume 9.9, Immature Granulocyte % (Auto) 6, Neutrophils (%) (Auto) 83H, Lymphocytes (%) (Auto) 5L, Monocytes (%) (Auto) 6, Eosinophils (%) (Auto) 0, Basophils (%) (Auto) 0, Neutrophils # (Auto) 8.5H, Lymphocytes # (Auto) 0.5L, Monocytes # (Auto) 0.6, Eosinophils # (Auto) 0.0, Basophils # (Auto) 0.0, Immature Granulocyte # (Auto) 0.6H, Sodium Level 137, Potassium Level 4.4, Chloride Level 100, Carbon Dioxide Level 28, Anion Gap 9, Blood Urea Nitrogen 25H, Creatinine 0.84, Estimat Glomerular Filtration Rate 90, BUN/Creatinine Ratio 30, Glucose Level 194H, Calcium Level 8.4L, Corrected Calcium 9.2, Magnesium Level 2.3, Total Bilirubin 1.0, Aspartate Amino Transf (AST/SGOT) 20, Alanine Aminotransferase (ALT/SGPT) 55, Alkaline Phosphatase 51, Total Protein 5.7L, Albumin 3.0L 09/10/22 03:28: Blood Gas Puncture Site LRAD, Blood Gas Patient Temperature 36.6, Arterial Blood pH 7.45H, Arterial Blood Partial Pressure CO2 47H, Arterial Blood Partial Pressure O2 80, Arterial Blood HCO3 32H, Arterial Blood Total CO2 33.4H, Arterial Blood Oxygen Saturation 97, Arterial Blood Base Excess 7.7H, Andrea Test YES-POS, Blood Gas Ventilator Setting NO, Blood Gas Inspired Oxygen 50% 09/10/22 10:48: Glucometer 274H 09/10/22 15:40: Glucometer 346H 09/10/22 16:20: Glucometer 291H 09/10/22 20:33: Glucometer 248H 09/11/22 03:18: White Blood Count 13.3H, Red Blood Count 4.30, Hemoglobin 14.1, Hematocrit 41, Mean Corpuscular Volume 94, Mean Corpuscular Hemoglobin 33, Mean Corpuscular Hemoglobin Concent 35, Red Cell Distribution Width 14.6H, Platelet Count 179, Me an Platelet Volume 9.9, Immature Granulocyte % (Auto) 5, Neutrophils (%) (Auto) 79H, Lymphocytes (%) (Auto) 6L, Monocytes (%) (Auto) 10, Eosinophils (%) (Auto) 0, Basophils (%) (Auto) 0, Neutrophils # (Auto) 10.5H, Lymphocytes # (Auto) 0.8L , Monocytes # (Auto) 1.3H, Eosinophils # (Auto) 0.0, Basophils # (Auto) 0.0, Immature Granulocyte # (Auto) 0.7H, Sodium Level 135, Potassium Level 4.3, Chloride Level 99, Carbon Dioxide Level 27, Anion Gap 9, Blood Urea Nitrogen 25H , Creatinine 0.94, Estimat Glomerular Filtration Rate 84, BUN/Creatinine Ratio 27, Glucose Level 177H, Calcium Level 8.6, Corrected Calcium 9.4, Magnesium Level 2.2, Total Bilirubin 0.8, Aspartate Amino Transf (AST/SGOT) 17, Alanine Aminotransferase (ALT/SGPT) 45, Alkaline Phosphatase 55, Total Protein 5.6L, Albumin 3.0L 09/11/22 11:20: Glucometer 348H 09/11/22 15:57: Glucometer 333H 09/12/22 04:56: White Blood Count 13.2H, Red Blood Count 4.34, Hemoglobin 14.1, Hematocrit 41, Mean Corpuscular Volume 93, Mean Corpuscular Hemoglobin 33, Mean Corpuscular Hemoglobin Concent 35, Red Cell Distribution Width 14.4, Platelet Count 186, Mean Platelet Volume 9.9, Immature Granulocyte % (Auto) 5, Neutrophils (%) (Auto) 80H, Lymphocytes (%) (Auto) 7L, Monocytes (%) (Auto) 8, Eosinophils (%) (Auto) 0, Basophils (%) (Auto) 0, Neutrophils # (Auto) 10.5H, Lymphocytes # (Auto) 0.9L, Monocytes # (Auto) 1.0, Eosinophils # (Auto) 0.0, Basophils # (Auto) 0.0, Immature Granulocyte # (Auto) 0.7H, Sodium Level 135, Potassium Level 4.1, Chloride Level 99, Carbon Dioxide Level 28, Anion Gap 8, Blood Urea Nitrogen 24H, Creatinine 0.83, Estimat Glomerular Filtration Rate 91, BUN/Creatinine Ratio 29, Glucose Level 112H, Calcium Level 8.4L, Corrected Calcium 9.2, Magnesium Level 2.1, Total Bilirubin 1.0, Aspartate Amino Transf (AST/SGOT) 17, Alanine Aminotransferase (ALT/SGPT) 37, Alkaline Phosphatase 52, Total Protein 5.4L, Albumin 3.0L 09/12/22 11:12: Glucometer 354H 09/12/22 15:59: Glucometer 292H 09/12/22 20:07: Glucometer 192H 09/13/22 05:29: Magnesium Level 2.0 09/13/22 06:21: Glucometer 104 09/13/22 08:16: Glucometer 179H 09/13/22 10:08: Glucometer 219H 09/13/22 16:17: Glucometer 282H 09/13/22 20:36: Glucometer 237H 09/14/22 05:30: White Blood Count 12.0H, Red Blood Count 4.27L, Hemoglobin 13.9, Hematocrit 40, Mean Corpuscular Volume 95, Mean Corpuscular Hemoglobin 33, Mean Corpuscular Hemoglobin Concent 34, Red Cell Distribution Width 14.6H, Platelet Count 162, Mean Platelet Volume 9.9, Immature Granulocyte % (Auto) 6, Neutrophils (%) (Auto) 76H, Lymphocytes (%) (Auto) 9L, Monocytes (%) (Auto) 9, Eosinophils (%) (Auto) 0, Basophils (%) (Auto) 0, Neutrophils # (Auto) 9.1H, Lymphocytes # (Auto) 1.0, Monocytes # (Auto) 1.1H, Eosinophils # (Auto) 0.0, Basophils # (Au to) 0.0, Immature Granulocyte # (Auto) 0.8H, Sodium Level 137, Potassium Level 3.9, Chloride Level 99, Carbon Dioxide Level 28, Anion Gap 10, Blood Urea Nitrogen 19H, Creatinine 0.81, Estimat Glomerular Filtration Rate 91, BUN/Creatinine Ratio 23, Glucose Level 59*L, Calcium Level 8.3L 09/14/22 06:44: Glucometer 100 09/14/22 08:47: Glucometer 201H 09/14/22 16:03: Glucometer 361H 09/14/22 21:19: Glucometer 143H 09/15/22 06:22: Glucometer 134H 09/15/22 09:40: White Blood Count 12.4H, Red Blood Count 4.67, Hemoglobin 15.0, Hematocrit 44, Mean Corpuscular Volume 94, Mean Corpuscular Hemoglobin 32, Mean Corpuscular Hemoglobin Concent 34, Red Cell Distribution Width 14.8H, Platelet Count 152, Mean Platelet Volume 9.7, Immature Granulocyte % (Auto) 6, Neutrophils (%) (Auto) 80H, Lymphocytes (%) (Auto) 5L, Monocytes (%) (Auto) 9, Eosinophils (%) (Auto) 0, Basophils (%) (Auto) 0, Neutrophils # (Auto) 9.9H, Lymphocytes # (Auto) 0.6L, Monocytes # (Auto) 1.1H, Eosinophils # (Auto) 0.0, Basophils # (Auto) 0.0, Immature Granulocyte # (Auto) 0.8H, Neutrophils % (Manual) 81, Lymphocytes % (Manual) 5, Monocytes % (Manual) 8, Metamyelocytes % 1, Band Neutrophils 5, Polychromasia SLIGHT, Sodium Level 132L, Potassium Level 4.5, Chloride Level 99, Carbon Dioxide Level 22, Anion Gap 11, Blood Urea Nitrogen 24H, Creatinine 1.29, Estimat Glomerular Filtration Rate 57, BUN/Creatinine Ratio 19, Glucose Level 390H, Calcium Level 8.4L, Corrected Calcium 9.1, Total Bilirubin 0.7, Aspartate Amino Transf (AST/SGOT) 15, Alanine Aminotransferase (ALT/SGPT) 39, Alkaline Phosphatase 57, Total Protein 5.9L, Albumin 3.1L 09/15/22 11:00: Glucometer 402*H Pending Labs Laboratory Tests 09/02/22 04:17: White Blood Count 5.8, Red Blood Count 4.28, Hemoglobin 13.8, Hematocrit 40, Mean Corpuscular Volume 94, Mean Corpuscular Hemoglobin 32, Mean Corpuscular Hemoglobin Concent 34, Red Cell Distribution Width 15.2, Platelet Count 129, Mean Platelet Volume 10.0, Immature Granulocyte % (Auto) 1, Neutrophils (%) (Auto) 82, Lymphocytes (%) (Auto) 15, Monocytes (%) (Auto) 2, Eosinophils (%) (Auto) 0, Basophils (%) (Auto) 0, Neutrophils # (Auto) 4.8, Lymphocytes # (Auto) 0.9, Monocytes # (Auto) 0.1, Eosinophils # (Auto) 0.0, Basophils # (Auto) 0.0, Immature Granulocyte # (Auto) 0.1, Sodium Level 136, Potassium Level 4.3, Chloride Level 100, Carbon Dioxide Level 23, Anion Gap 13, Blood Urea Nitrogen 22, Creatinine 1.03, Estimat Glomerular Filtration Rate 75, BUN/Creatinine Ratio 21, Glucose Level 251, Calcium Level 9.3, Corrected Calcium 9.9, Total Bilirubin 0.9, Aspartate Amino Transf (AST/SGOT) 30, Alanine Aminotransferase (ALT/SGPT) 71, Alkaline Phosphatase 69, B-Type Natriuretic Peptide 34.1, Total Protein 6.8, Albumin 3.3 09/02/22 05:27: Blood Gas Puncture Site UNK, Blood Gas Patient Temperature 36.3, Arterial Blood pH 7.41, Arterial Blood Partial Pressure CO2 41, Arterial Blood Partial Pressure O2 118, Arterial Blood HCO3 26, Arterial Blood Total CO2 27.0, Arterial Blood Oxygen Saturation 100, Arterial Blood Base Excess 1.4, Andrea Test YES-POS, Blood Gas Ventilator Setting NO, Blood Gas Inspired Oxygen 50% 09/02/22 12:43: Procalcitonin 0.04 09/03/22 03:57: White Blood Count 14.7, Red Blood Count 4.17, Hemoglobin 13.3, Hematocrit 40, Mean Corpuscular Volume 95, Mean Corpuscular Hemoglobin 32, Mean Corpuscular Hemoglobin Concent 34, Red Cell Distribution Width 15.9, Platelet Count 156, Mean Platelet Volume 10.3, Immature Granulocyte % (Auto) 2, Neutrophils (%) (Auto) 87, Lymphocytes (%) (Auto) 4, Monocytes (%) (Auto) 7, Eosinophils (%) (Auto) 0, Basophils (%) (Auto) 0, Neutrophils # (Auto) 12.8, Lymphocytes # (Auto) 0.6, Monocytes # (Auto) 1.0, Eosinophils # (Auto) 0.0, Basophils # (Auto) 0.0, Immature Granulocyte # (Auto) 0.3, Sodium Level 135, Potassium Level 4.0, Chloride Level 98, Carbon Dioxide Level 19, Anion Gap 18, Blood Urea Nitrogen 30, Creatinine 1.21, Estimat Glomerular Filtration Rate 62, BUN/Creatinine Ratio 25, Glucose Level 298, Calcium Level 9.1, Corrected Calcium 9.7, Total Bilirubin 0.7, Aspartate Amino Transf (AST/SGOT) 24, Alanine Aminotransferase (ALT/SGPT) 57, Alkaline Phosphatase 67, Total Protein 6.6, Albumin 3.3, Neutrophils % (Manual) 86, Lymphocytes % (Manual) 4, Monocytes % (Manual) 7, Band Neutrophils 3, Anisocytosis SLIGHT, Phosphorus Level 3.3, Magnesium Level 2.2 09/03/22 04:50: Blood Gas Puncture Site R RAD, Blood Gas Patient Temperature 37.3, Arterial Blood pH 7.41, Arterial Blood Partial Pressure CO2 36, Arterial Blood Partial Pressure O2 67, Arterial Blood HCO3 23, Arterial Blood Total CO2 23.7, Arterial Blood Oxygen Saturation 93, Arterial Blood Base Excess -1.3, Andrea Test YES-POS, Blood Gas Ventilator Setting NO, Blood Gas Inspired Oxygen 40% 09/03/22 20:43: Glucometer 288 09/04/22 04:30: White Blood Count 13.0, Red Blood Count 4.11, Hemoglobin 13.0, Hematocrit 39, Mean Corpuscular Volume 95, Mean Corpuscular Hemoglobin 32, Mean Corpuscular Hemoglobin Concent 33, Red Cell Distribution Width 16.2, Platelet Count 149, Mean Platelet Volume 9.9, Immature Granulocyte % (Auto) 2, Neutrophils (%) (Auto) 88, Lymphocytes (%) (Auto) 4, Monocytes (%) (Auto) 5, Eosinophils (%) (Auto) 1, Basophils (%) (Auto) 0, Neutrophils # (Auto) 11.5, Lymphocytes # (Auto) 0.5, Monocytes # (Auto) 0.7, Eosinophils # (Auto) 0.1, Basophils # (Auto) 0.0, Immature Granulocyte # (Auto) 0.3, Sodium Level 137, Potassium Level 4.4, Chloride Level 100, Carbon Dioxide Level 23, Anion Gap 14, Blood Urea Nitrogen 28, Creatinine 1.06, Estimat Glomerular Filtration Rate 73, BUN/Creatinine Ratio 26, Glucose Level 264, Calcium Level 9.1, Corrected Calcium 9.7, Phosphorus Level 3.4, Magnesium Level 2.3, Total Bilirubin 0.9, Aspartate Amino Transf (AST/SGOT) 42, Alanine Aminotransferase (ALT/SGPT) 81, Alkaline Phosphatase 63, Total Protein 6.3, Albumin 3.2 09/04/22 05:27: Blood Gas Puncture Site LRAD, Blood Gas Patient Temperature 36.8, Arterial Blood pH 7.42, Arterial Blood Partial Pressure CO2 45, Arterial Blood Partial Pressure O2 82, Arterial Blood HCO3 29, Arterial Blood Total CO2 30.0, Arterial Blood Oxygen Saturation 94, Arterial Blood Base Excess 4.2, Andrea Test YES-POS, Blood Gas Ventilator Setting NO, Blood Gas Inspired Oxygen 50% 09/04/22 10:28: Glucometer 298 09/04/22 15:46: Glucometer 246 09/04/22 20:18: Glucometer 286 09/05/22 03:50: White Blood Count 10.0, Red Blood Count 4.05, Hemoglobin 13.0, Hematocrit 39, Mean Corpuscular Volume 97, Mean Corpuscular Hemoglobin 32, Mean Corpuscular Hemoglobin Concent 33, Red Cell Distribution Width 15.9, Platelet Count 160, Mean Platelet Volume 10.2, Immature Granulocyte % (Auto) 2, Neutrophils (%) (Auto) 86, Lymphocytes (%) (Auto) 5, Monocytes (%) (Auto) 6, Eosinophils (%) (Auto) 0, Basophils (%) (Auto) 0, Neutrophils # (Auto) 8.7, Lymphocytes # (Auto) 0.5, Monocytes # (Auto) 0.6, Eosinophils # (Auto) 0.0, Basophils # (Auto) 0.0, Immature Granulocyte # (Auto) 0.2, Sodium Level 139, Potassium Level 4.3, Chloride Level 103, Carbon Dioxide Level 25, Anion Gap 11, Blood Urea Nitrogen 31, Creatinine 1.04, Estimat Glomerular Filtration Rate 74, BUN/Creatinine Ratio 30, Glucose Level 248, Calcium Level 8.9, Corrected Calcium 9.7, Phosphorus Level 3.6, Magnesium Level 2.4, Total Bilirubin 1.0, Aspartate Amino Transf (AST/SGOT) 29, Alanine Aminotransferase (ALT/SGPT) 65, Alkaline Phosphatase 64, B-Type Natriuretic Peptide 41.3, Total Protein 6.0, Albumin 3.0, Procalcitonin 0.03 09/05/22 10:52: Glucometer 320 09/05/22 15:47: Glucometer 180 09/05/22 20:43: Glucometer 248 09/06/22 03:05: White Blood Count 9.3, Red Blood Count 4.44, Hemoglobin 14.3, Hematocrit 43, Mean Corpuscular Volume 96, Mean Corpuscular Hemoglobin 32, Mean Corpuscular Hemoglobin Concent 34, Red Cell Distribution Width 15.6, Platelet Count 176, Mean Platelet Volume 9.8, Immature Granulocyte % (Auto) 2, Neutrophils (%) (Auto) 86, Lymphocytes (%) (Auto) 7, Monocytes (%) (Auto) 4, Eosinophils (%) (Auto) 0, Basophils (%) (Auto) 0, Neutrophils # (Auto) 8.0, Lymphocytes # (Auto) 0.6, Monocytes # (Auto) 0.4, Eosinophils # (Auto) 0.0, Basophils # (Auto) 0.0, Immature Granulocyte # (Auto) 0.2, Sodium Level 139, Potassium Level 4.2, Chloride Level 99, Carbon Dioxide Level 27, Anion Gap 13, Blood Urea Nitrogen 29, Creatinine 0.93, Estimat Glomerular Filtration Rate 85, BUN/Creatinine Ratio 31, Glucose Level 252, Calcium Level 9.0, Corrected Calcium 9.5, Phosphorus Level 3.8, Magnesium Level 2.4, Total Bilirubin 1.2, Aspartate Amino Transf (AST/SGOT) 62, Alanine Aminotransferase (ALT/SGPT) 144, Alkaline Phosphatase 66, Total Protein 6.5, Albumin 3.4 09/06/22 04:20: Blood Gas Puncture Site L RAD, Blood Gas Patient Temperature 36.8, Arterial Blood pH 7.42, Arterial Blood Partial Pressure CO2 52, Arterial Blood Partial Pressure O2 53, Arterial Blood HCO3 33, Arterial Blood Total CO2 35.0, Arterial Blood Oxygen Saturation 83, Arterial Blood Base Excess 8.7, Andrea Test YES-POS, Blood Gas Ventilator Setting NO, Blood Gas Inspired Oxygen 50% 09/06/22 05:58: Glucometer 269 09/06/22 10:21: Glucometer 262 09/06/22 15:54: Glucometer 217 09/06/22 20:18: Glucometer 247 09/07/22 02:49: White Blood Count 10.1, Red Blood Count 4.22, Hemoglobin 13.5, Hematocrit 40, Mean Corpuscular Volume 96, Mean Corpuscular Hemoglobin 32, Mean Corpuscular Hemoglobin Concent 34, Red Cell Distribution Width 15.2, Platelet Count 177, Mean Platelet Volume 9.7, Immature Granulocyte % (Auto) 2, Neutrophils (%) (Auto) 87, Lymphocytes (%) (Auto) 5, Monocytes (%) (Auto) 5, Eosinophils (%) (Auto) 0, Basophils (%) (Auto) 0, Neutrophils # (Auto) 8.8, Lymphocytes # (Auto) 0.5, Monocytes # (Auto) 0.5, Eosinophils # (Auto) 0.0, Basophils # (Auto) 0.0, Immature Granulocyte # (Auto) 0.2, Sodium Level 139, Potassium Level 4.3, Chloride Level 99, Carbon Dioxide Level 30, Anion Gap 10, Blood Urea Nitrogen 29, Creatinine 0.96, Estimat Glomerular Filtration Rate 82, BUN/Creatinine Ratio 30, Glucose Level 232, Calcium Level 8.6, Corrected Calcium 9.3, Phosphorus Level 4.2, Magnesium Level 2.5, Total Bilirubin 1.2, Aspartate Amino Transf (AST/SGOT) 26, Alanine Aminotransferase (ALT/SGPT) 98, Alkaline Phosphatase 57, Total Protein 5.8, Albumin 3.1 09/07/22 05:36: Glucometer 225 09/07/22 10:47: Glucometer 384 09/07/22 15:27: Glucometer 263 09/07/22 20:35: Glucometer 292 09/08/22 04:27: White Blood Count 9.2, Red Blood Count 4.26, Hemoglobin 13.6, Hematocrit 40, Mean Corpuscular Volume 95, Mean Corpuscular Hemoglobin 32, Mean Corpuscular Hemoglobin Concent 34, Red Cell Distribution Width 14.6, Platelet Count 185, Mean Platelet Volume 10.0, Immature Granulocyte % (Auto) 5, Neutrophils (%) (Auto) 83, Lymphocytes (%) (Auto) 4, Monocytes (%) (Auto) 8, Eosinophils (%) (Auto) 0, Basophils (%) (Auto) 0, Neutrophils # (Auto) 7.6, Lymphocytes # (Auto) 0.4, Monocytes # (Auto) 0.7, Eosinophils # (Auto) 0.0, Basophils # (Auto) 0.0, Immature Granulocyte # (Auto) 0.4, Neutrophils % (Manual) 84, Lymphocytes % (Manual) 6, Prolymphocyte % 2, Monocytes % (Manual) 8, Blood Morphology Comment NORMAL, Sodium Level 138, Potassium Level 4.3, Chloride Level 98, Carbon Dioxide Level 28, Anion Gap 12, Blood Urea Nitrogen 35, Creatinine 1.15, Estimat Glomerular Filtration Rate 66, BUN/Creatinine Ratio 30, Glucose Level 273, Calcium Level 8.6, Corrected Calcium 9.4, Magnesium Level 2.4, Total Bilirubin 1.1, Aspartate Amino Transf (AST/SGOT) 20, Alanine Aminotransferase (ALT/SGPT) 70, Alkaline Phosphatase 53, Total Protein 5.8, Albumin 3.0 09/08/22 11:50: Glucometer 383 09/08/22 16:28: Glucometer 259 09/08/22 20:37: Glucometer 282 09/09/22 03:34: White Blood Count 9.3, Red Blood Count 4.18, Hemoglobin 13.5, Hematocrit 40, Mean Corpuscular Volume 96, Mean Corpuscular Hemoglobin 32, Mean Corpuscular Hemoglobin Concent 34, Red Cell Distribution Width 14.6, Platelet Count 179, Mean Platelet Volume 10.1, Immature Granulocyte % (Auto) 5, Neutrophils (%) (Auto) 82, Lymphocytes (%) (Auto) 4, Monocytes (%) (Auto) 9, Eosinophils (%) (Auto) 0, Basophils (%) (Auto) 0, Neutrophils # (Auto) 7.6, Lymphocytes # (Auto) 0.4, Monocytes # (Auto) 0.8, Eosinophils # (Auto) 0.0, Basophils # (Auto) 0.0, Immature Granulocyte # (Auto) 0.5, Sodium Level 137, Potassium Level 4.4, Chloride Level 98, Carbon Dioxide Level 31, Anion Gap 8, Blood Urea Nitrogen 27, Creatinine 1.02, Estimat Glomerular Filtration Rate 76, BUN/Creatinine Ratio 26, Glucose Level 237, Calcium Level 8.4, Corrected Calcium 9.2, Magnesium Level 2.3, Total Bilirubin 1.1, Aspartate Amino Transf (AST/SGOT) 19, Alanine Aminotransferase (ALT/SGPT) 63, Alkaline Phosphatase 55, Total Protein 5.7, Albumin 3.0 09/09/22 04:19: Blood Gas Puncture Site L RAD, Blood Gas Patient Temperature 36.4, Arterial Blood pH 7.44, Arterial Blood Partial Pressure CO2 49, Arterial Blood Partial Pressure O2 91, Arterial Blood HCO3 34, Arterial Blood Total CO2 35.1, Arterial Blood Oxygen Saturation 98, Arterial Blood Base Excess 9.1, Andrea Test YES-POS, Blood Gas Ventilator Setting NO, Blood Gas Inspired Oxygen 40% 09/09/22 11:00: Glucometer 312 09/09/22 15:15: Glucometer 273 09/09/22 20:34: Glucometer 168 09/10/22 03:25: White Blood Count 10.2, Red Blood Count 4.31, Hemoglobin 14.0, Hematocrit 41, Mean Corpuscular Volume 94, Mean Corpuscular Hemoglobin 33, Mean Corpuscular Hemoglobin Concent 35, Red Cell Distribution Width 14.3, Platelet Count 180, Mean Platelet Volume 9.9, Immature Granulocyte % (Auto) 6, Neutrophils (%) (Auto) 83, Lymphocytes (%) (Auto) 5, Monocytes (%) (Auto) 6, Eosinophils (%) (Auto) 0, Basophils (%) (Auto) 0, Neutrophils # (Auto) 8.5, Lymphocytes # (Auto) 0.5, Monocytes # (Auto) 0.6, Eosinophils # (Auto) 0.0, Basophils # (Auto) 0.0, Immature Granulocyte # (Auto) 0.6, Sodium Level 137, Potassium Level 4.4, Chloride Level 100, Carbon Dioxide Level 28, Anion Gap 9, Blood Urea Nitrogen 25, Creatinine 0.84, Estimat Glomerular Filtration Rate 90, BUN/Creatinine Ratio 30, Glucose Level 194, Calcium Level 8.4, Corrected Calcium 9.2, Magnesium Level 2.3, Total Bilirubin 1.0, Aspartate Amino Transf (AST/SGOT) 20, Alanine Aminotransferase (ALT/SGPT) 55, Alkaline Phosphatase 51, Total Protein 5.7, Albumin 3.0 09/10/22 03:28: Blood Gas Puncture Site LRAD, Blood Gas Patient Temperature 36.6, Arterial Blood pH 7.45, Arterial Blood Partial Pressure CO2 47, Arterial Blood Partial Pressure O2 80, Arterial Blood HCO3 32, Arterial Blood Total CO2 33.4, Arterial Blood Oxygen Saturation 97, Arterial Blood Base Excess 7.7, Andrea Test YES-POS, Blood Gas Ventilator Setting NO, Blood Gas Inspired Oxygen 50% 09/10/22 10:48: Glucometer 274 09/10/22 15:40: Glucometer 346 09/10/22 16:20: Glucometer 291 09/10/22 20:33: Glucometer 248 09/11/22 03:18: White Blood Count 13.3, Red Blood Count 4.30, Hemoglobin 14.1, Hematocrit 41, Mean Corpuscular Volume 94, Mean Corpuscular Hemoglobin 33, Mean Corpuscular Hemoglobin Concent 35, Red Cell Distribution Width 14.6, Platelet Count 179, Mean Platelet Volume 9.9, Immature Granulocyte % (Auto) 5, Neutrophils (%) (Auto) 79, Lymphocytes (%) (Auto) 6, Monocytes (%) (Auto) 10, Eosinophils (%) (Auto) 0, Basophils (%) (Auto) 0, Neutrophils # (Auto) 10.5, Lymphocytes # (Auto) 0.8, Monocytes # (Auto) 1.3, Eosinophils # (Auto) 0.0, Basophils # (Auto) 0.0, Immature Granulocyte # (Auto) 0.7, Sodium Level 135, Potassium Level 4.3, Chloride Level 99, Carbon Dioxide Level 27, Anion Gap 9, Blood Urea Nitrogen 25, Creatinine 0.94, Estimat Glomerular Filtration Rate 84, BUN/Creatinine Ratio 27, Glucose Level 177, Calcium Level 8.6, Corrected Calcium 9.4, Magnesium Level 2.2, Total Bilirubin 0.8, Aspartate Amino Transf (AST/SGOT) 17, Alanine Aminotransferase (ALT/SGPT) 45, Alkaline Phosphatase 55, Total Protein 5.6, Albumin 3.0 09/11/22 11:20: Glucometer 348 09/11/22 15:57: Glucometer 333 09/12/22 04:56: White Blood Count 13.2, Red Blood Count 4.34, Hemoglobin 14.1, Hematocrit 41, Mean Corpuscular Volume 93, Mean Corpuscular Hemoglobin 33, Mean Corpuscular Hemoglobin Concent 35, Red Cell Distribution Width 14.4, Platelet Count 186, Mean Platelet Volume 9.9, Immature Granulocyte % (Auto) 5, Neutrophils (%) (Auto) 80, Lymphocytes (%) (Auto) 7, Monocytes (%) (Auto) 8, Eosinophils (%) (Auto) 0, Basophils (%) (Auto) 0, Neutrophils # (Auto) 10.5, Lymphocytes # (Auto) 0.9, Monocytes # (Auto) 1.0, Eosinophils # (Auto) 0.0, Basophils # (Auto) 0.0, Immature Granulocyte # (Auto) 0.7, Sodium Level 135, Potassium Level 4.1, Chloride Level 99, Carbon Dioxide Level 28, Anion Gap 8, Blood Urea Nitrogen 24, Creatinine 0.83, Estimat Glomerular Filtration Rate 91, BUN/Creatinine Ratio 29, Glucose Level 112, Calcium Level 8.4, Corrected Calcium 9.2, Magnesium Level 2.1, Total Bilirubin 1.0, Aspartate Amino Transf (AST/SGOT) 17, Alanine Aminotransferase (ALT/SGPT) 37, Alkaline Phosphatase 52, Total Protein 5.4, Albumin 3.0 09/12/22 11:12: Glucometer 354 09/12/22 15:59: Glucometer 292 09/12/22 20:07: Glucometer 192 09/13/22 05:29: Magnesium Level 2.0 09/13/22 06:21: Glucometer 104 09/13/22 08:16: Glucometer 179 09/13/22 10:08: Glucometer 219 09/13/22 16:17: Glucometer 282 09/13/22 20:36: Glucometer 237 09/14/22 05:30: White Blood Count 12.0, Red Blood Count 4.27, Hemoglobin 13.9, Hematocrit 40, Mean Corpuscular Volume 95, Mean Corpuscular Hemoglobin 33, Mean Corpuscular Hemoglobin Concent 34, Red Cell Distribution Width 14.6, Platelet Count 162, Mean Platelet Volume 9.9, Immature Granulocyte % (Auto) 6, Neutrophils (%) (Auto) 76, Lymphocytes (%) (Auto) 9, Monocytes (%) (Auto) 9, Eosinophils (%) (Auto) 0, Basophils (%) (Auto) 0, Neutrophils # (Auto) 9.1, Lymphocytes # (Auto) 1.0, Monocytes # (Auto) 1.1, Eosinophils # (Auto) 0.0, Basophils # (Auto) 0.0, Immature Granulocyte # (Auto) 0.8, Sodium Level 137, Potassium Level 3.9, Chloride Level 99, Carbon Dioxide Level 28, Anion Gap 10, Blood Urea Nitrogen 19, Creatinine 0.81, Estimat Glomerular Filtration Rate 91, BUN/Creatinine Ratio 23, Glucose Level 59, Calcium Level 8.3 09/14/22 06:44: Glucometer 100 09/14/22 08:47: Glucometer 201 09/14/22 16:03: Glucometer 361 09/14/22 21:19: Glucometer 143 09/15/22 06:22: Glucometer 134 09/15/22 09:40: White Blood Count 12.4, Red Blood Count 4.67, Hemoglobin 15.0, Hematocrit 44, Mean Corpuscular Volume 94, Mean Corpuscular Hemoglobin 32, Mean Corpuscular Hemoglobin Concent 34, Red Cell Distribution Width 14.8, Platelet Count 152, Mean Platelet Volume 9.7, Immature Granulocyte % (Auto) 6, Neutrophils (%) (Auto) 80, Lymphocytes (%) (Auto) 5, Monocytes (%) (Auto) 9, Eosinophils (%) (Auto) 0, Basophils (%) (Auto) 0, Neutrophils # (Auto) 9.9, Lymphocytes # (Auto) 0.6, Monocytes # (Auto) 1.1, Eosinophils # (Auto) 0.0, Basophils # (Auto) 0.0, Immature Granulocyte # (Auto) 0.8, Neutrophils % (Manual) 81, Lymphocytes % (Manual) 5, Monocytes % (Manual) 8, Metamyelocytes % 1, Band Neutrophils 5, Polychromasia SLIGHT, Sodium Level 132, Potassium Level 4.5, Chloride Level 99, Carbon Dioxide Level 22, Anion Gap 11, Blood Urea Nitrogen 24, Creatinine 1.29, Estimat Glomerular Filtration Rate 57, BUN/Creatinine Ratio 19, Glucose Level 390, Calcium Level 8.4, Corrected Calcium 9.1, Total Bilirubin 0.7, Aspartate Amino Transf (AST/SGOT) 15, Alanine Aminotransferase (ALT/SGPT) 39, Alkaline Phosphatase 57, Total Protein 5.9, Albumin 3.1 09/15/22 11:00: Glucometer 402 Discharge Home Medications: Active Scripts Active Levemir (Insulin Determir) 100 Unit/Ml Soln 4 Unit SQ BID 30 Days Pantoprazole Sodium 40 Mg Tablet.dr 40 Mg PO DAILY@0700 30 Days Bumetanide 1 Mg Tablet 1 Mg PO Q48H 30 Days Metoprolol Succinate 50 Mg Tab.er.24h 75 Mg PO DAILY 30 Days Eliquis (Apixaban) 5 Mg Tablet 5 Mg PO BID 30 Days Incruse Ellipta (Umeclidinium [place]) 62.5 Mcg/Actuation Blst.w.dev 0 Inh IH DAILY@0800 30 Days daily Reported Garlic 1,000 Mg Capsule 2,000 Mg PO DAILY Rosuvastatin Calcium 40 Mg Tablet 40 Mg PO HS Losartan Potassium 50 Mg Tablet 50 Mg PO HS Tylenol (Acetaminophen) 325 Mg Capsule 650 Mg PO Q6H PRN Multivitamins with Minerals (Multivitamin with Minerals) 1 Each Tablet 1 Each PO DAILY Ezetimibe 10 Mg Tablet 10 Mg PO HS Aspirin 81 Mg Tab.chew 81 Mg PO DAILY Instructions to patient/family Please see electronic discharge instructions given to patient. DAYANA RUST DO Sep 15, 2022 13:14
== END 2022-09-15 15:45 | DRG 189 ==
LOC: CSD 21:36 → ICU 09-02 09:54 → CSD 09-08 10:13
PROVIDERS: ADMIT Internal Medicine; ATTEND Internal Medicine
PROC: 5A0945A Assistance with Respiratory Ventilation, 24-96 Consecutive Hours, High Flow/Velocity Cannula (ICD-10-PCS; principal; 2022-09-02)
PROC: 5A09357 Assistance with Respiratory Ventilation, Less than 24 Consecutive Hours, Continuous Positive Airway Pressure (ICD-10-PCS; 2022-09-02)
DX: J96.21 Acute and chronic respiratory failure with hypoxia (principal); J44.1 Chronic obstructive pulmonary disease with (acute) exacerbation; J84.112 Idiopathic pulmonary fibrosis; I27.20 Pulmonary hypertension, unspecified; N39.3 Stress incontinence (female) (male); E11.40 Type 2 diabetes mellitus with diabetic neuropathy, unspecified; I48.0 Paroxysmal atrial fibrillation; G47.33 Obstructive sleep apnea (adult) (pediatric); I49.5 Sick sinus syndrome; E66.9 Obesity, unspecified; E78.00 Pure hypercholesterolemia, unspecified; I10 Essential (primary) hypertension; N40.1 Benign prostatic hyperplasia with lower urinary tract symptoms; N31.9 Neuromuscular dysfunction of bladder, unspecified; K21.9 Gastro-esophageal reflux disease without esophagitis; M19.91 Primary osteoarthritis, unspecified site; R42 Dizziness and giddiness; R15.9 Full incontinence of feces; R53.81 Other malaise; Z68.28 Body mass index [BMI] 28.0-28.9, adult; Z95.0 Presence of cardiac pacemaker; Z99.81 Dependence on supplemental oxygen; Z79.82 Long term (current) use of aspirin; Z86.73 Personal history of transient ischemic attack (TIA), and cerebral infarction without residual deficits; Z87.891 Personal history of nicotine dependence; T50.2X5A Adverse effect of carbonic-anhydrase inhibitors, benzothiadiazides and other diuretics, initial encounter
CPT/HCPCS: 36410; 36415; 36600; 71045; 76937; 80048; 80053; 82805; 82947; 83735; 83880; 84100; 84145; 85007; 85025; 85027; 93306; 94640; 94660